=== PATIENT | female | born 1950 | race Caucasian/White ===

== ENCOUNTER 2019-05-06 12:03 | Outpatient (CLI) | payer MEDICARE, SELFPAY ==
[2019-05-06 12:29] LABS: Hematocrit 34.1 % (37.0-47.0); Hemoglobin 11.1 g/dL (12.0-15.0); Mean Corpuscular HGB Conc 32.6 g/dl (32-36); Mean Corpuscular Hemoglobin 29.8 pg (26-34); Mean Corpuscular Volume 91.4 fl (80-100); Mean Platelet Volume 9.7 fl (7.4-10.4); Platelet Count Result 234 k/mm3 (150-375); Red Blood Count 3.73 M/mm3 (4.2-5.4); White Blood Count 7.9 K/mm3 (4.5-10.0)
[2019-05-06 12:42] LABS: Total Protein Urine Random 7 mg/dL
[2019-05-06 12:47] LABS: Add Urine Microscopic? YES; Appearance Urine Clear (Clear); Bacteria Urine Trace /hpf; Bilirubin Urine Negative (Negative); Blood Urine Negative (Negative); Color Urine Yellow (Yellow); Glucose Urine UA 3+ mg/dL (Negative); Ketones Urine Negative (Negative); Leukocyte Esterase Ur Negative LEU/UL (NEGATIVE); Nitrate Urine Negative (Negative); Protein Urine Negative (Negative); RBC Urine 0-2 /hpf (0-2); Squamous Epithelial Cell Urine Few /hpf (Few); Urobilinogen Urine Negative mg/dL (<2.0); WBC Urine 0-3 /hpf (0-3)
[2019-05-06 12:48] LABS: Complement C3 125 mg/dL (88-165)
[2019-05-06 13:10] LABS: Albumin Level 4.1 g/dL (3.5-5.1); Blood Urea Nitrogen 31 mg/dL (7-17); Calcium 9.2 mg/dL (8.4-10.2); Carbon Dioxide 20 mmol/L (22-30); Chloride 104 mmol/L (98-107); Estimated Glomerular Filt Rate 41; Glucose 363 mg/dL (65-105); Phosphorus 3.3 mg/dL (2.5-4.5); Potassium 5.6 mmol/L (3.4-5.0); Sodium 135 mmol/L (137-145)
[2019-05-06 13:19] LABS: Vitamin D 25 Hydroxy 14.7 ng/mL
[2019-05-06 13:22] LABS: Parathyroid Intact 105.2 pg/mL (7.5-53.5)
[2019-05-06 13:27] LABS: Erythrocyte Sedimentation Rate 81 mm/hr (0-20)
[2019-05-09 12:53] LABS: Complement Total CH50 >60 U/mL (31-60)
[2019-05-10 00:29] LABS: Kappa\\Lambda Light Chains 1.44 (0.26-1.65); Lambda Light Chain 31.1 mg/L (5.7-26.3)
== END 2019-05-06 12:04 | disposition home or self-care (01) ==
PROVIDERS: Visit Provider Internal Medicine Nephrology
DX: N18.3 Chronic kidney disease, stage 3 (moderate) (principal)
CPT/HCPCS: 36415; 80069; 81001; 81050; 82306; 83883; 83970; 84156; 85027; 85652; 86038; 86160; 86162; 86334; 86335

== ENCOUNTER 2019-05-22 12:42 | Outpatient (CLI) | payer MEDICARE, SELFPAY ==
--- NOTE | ~2019-05-22 | US_ITS ---
EXAMINATION: US renal BI EXAM DATE: 05/22/2019 13:45 INDICATION: Chronic kidney disease stage III. TECHNIQUE: Multiple grayscale and Doppler images of the kidneys were obtained (by a technologist who performed the scan) and subsequently reviewed. There is no prior study for comparison. FINDINGS: There is bilateral renal cortical thinning. Right kidney: There is normal contour and echogenicity. It measures 10.0 x 5.2 x 4.3 centimeters. T here are no focal renal lesions identified. There is no hydronephrosis. Left kidney: There is normal contour and echogenicity. It measures 10.2 x 5.8 x 5.9 centimeters. Th ere are no focal renal lesions identified. There is no hydronephrosis. Bladder unremarkable. IMPRESSION: 1. Symmetric bilateral renal cortical thinning, atrophy. Reviewed, dictated and finalized at location A. 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
== END 2019-05-22 12:43 | disposition home or self-care (01) ==
LOC: ANHIMG 12:52
PROVIDERS: Visit Provider Internal Medicine Nephrology
DX: N18.3 Chronic kidney disease, stage 3 (moderate) (principal)
CPT/HCPCS: 76775

== ENCOUNTER 2019-07-29 11:58 | Outpatient (CLI) | payer MEDICARE, SELFPAY ==
[2019-07-29 12:41] LABS: Cholesterol 169 mg/dL (0-200); HDL Direct 52 mg/dL; Triglycerides 199 mg/dL (<150)
[2019-07-29 12:53] LABS: LDL Cholesterol Direct 77 mg/dL
== END 2019-07-29 11:59 | disposition home or self-care (01) ==
DX: E11.9 Type 2 diabetes mellitus without complications (principal); I10 Essential (primary) hypertension
CPT/HCPCS: 36415; 80061; 83036

== ENCOUNTER 2019-10-16 11:26 | Outpatient (CLI) | payer MEDICARE, SELFPAY ==
[2019-10-16 12:41] LABS: Hemoglobin A1C 7.9 % (<5.7)
== END 2019-10-16 11:27 | disposition home or self-care (01) ==
DX: E11.9 Type 2 diabetes mellitus without complications (principal)
CPT/HCPCS: 36415; 83036

== ENCOUNTER 2019-12-13 14:30 | Outpatient (CLI) | payer MEDICARE, SELFPAY ==
[2019-12-13 15:13] LABS: Creatinine Urine 154.8 mg/dL; Total Protein Urine Random 7 mg/dL
[2019-12-13 15:20] LABS: Albumin Level 4.2 g/dL (3.5-5.1); Anion Gap 6 mmol/L (8-16); Blood Urea Nitrogen 25 mg/dL (7-17); Calcium 9.1 mg/dL (8.4-10.2); Carbon Dioxide 25 mmol/L (22-30); Chloride 106 mmol/L (98-107); Estimated Glomerular Filt Rate 37; Glucose 113 mg/dL (65-105); Phosphorus 4.1 mg/dL (2.5-4.5); Potassium 4.8 mmol/L (3.4-5.0); Sodium 137 mmol/L (137-145)
[2019-12-13 15:57] LABS: Vitamin D 25 Hydroxy 34.1 ng/mL
== END 2019-12-13 14:31 | disposition home or self-care (01) ==
PROVIDERS: Visit Provider Internal Medicine Nephrology
DX: N18.3 Chronic kidney disease, stage 3 (moderate) (principal)
CPT/HCPCS: 36415; 80069; 82306; 82570; 84156

== ENCOUNTER 2020-06-08 16:01 | Outpatient (CLI) | payer MEDICARE, SELFPAY ==
[2020-06-08 16:43] LABS: Hematocrit 32.5 % (37.0-47.0); Hemoglobin 10.5 g/dL (12.0-15.0); Mean Corpuscular HGB Conc 32.3 g/dl (32-36); Mean Corpuscular Hemoglobin 29.1 pg (26-34); Mean Platelet Volume 9.5 fl (7.4-10.4); Platelet Count Result 235 k/mm3 (150-375); Red Blood Count 3.61 M/mm3 (4.2-5.4); Red Cell Distribution Width 13.5 % (11.5-14.5); White Blood Count 6.6 K/mm3 (4.5-10.0)
[2020-06-08 17:00] LABS: Albumin Level 3.7 g/dL (3.5-5.1); Anion Gap 5 mmol/L (8-16); Blood Urea Nitrogen 30 mg/dL (7-17); Calcium 8.8 mg/dL (8.4-10.2); Carbon Dioxide 27 mmol/L (22-30); Chloride 106 mmol/L (98-107); Estimated Glomerular Filt Rate 37; Glucose 218 mg/dL (65-105); Phosphorus 3.8 mg/dL (2.5-4.5); Potassium 5.2 mmol/L (3.4-5.0); Sodium 138 mmol/L (137-145)
[2020-06-08 17:08] LABS: Parathyroid Intact 75.7 pg/mL (7.5-53.5)
[2020-06-08 17:22] LABS: Creatinine Urine 198.4 mg/dL; Total Protein Urine Random 8 mg/dL; Ur Ttl Prot Creatinine Ratio 0.04 mg/mg (0-0.20)
[2020-06-08 17:43] LABS: Vitamin D 25 Hydroxy 30.5 ng/mL
== END 2020-06-08 16:02 | disposition home or self-care (01) ==
LOC: ANHLAB 16:05
PROVIDERS: Visit Provider Internal Medicine Nephrology
DX: N18.30 Chronic kidney disease, stage 3 unspecified (principal)
CPT/HCPCS: 36415; 80069; 82306; 82570; 83970; 84156; 85027

== ENCOUNTER 2020-08-03 15:11 | Outpatient (CLI) | payer MEDICARE, SELFPAY ==
[2020-08-03 15:47] LABS: Cholesterol 135 mg/dL (0-200); HDL Direct 49 mg/dL; Triglycerides 185 mg/dL (<150)
[2020-08-03 15:57] LABS: LDL Cholesterol Direct 53 mg/dL
== END 2020-08-03 15:12 | disposition home or self-care (01) ==
DX: I10 Essential (primary) hypertension (principal)
CPT/HCPCS: 36415; 80061

== ENCOUNTER 2020-09-30 20:33 | Emergency (ER) | payer MEDICARE, SELFPAY ==
[2020-09-30] VITALS (7 sets, daily range): BP systolic 117–162; BP diastolic 62–78; PULSE 69–81; RESP 15–23; TEMP 36.2; O2SAT 93–98
--- NOTE | ~2020-09-30 | CT_ITS ---
EXAMINATION: CT abdomen pelvis wo con EXAM DATE: 09/30/2020 23:04 INDICATION: Nausea and vomiting. TECHNIQUE: Spiral CT of the abdomen and pelvis was performed without contrast. Axial, coronal and sag ittal images were reviewed. The dose-length product (DLP) for this examination was 1461.43 mGy-cm. The exposure was tailored according to patient size (auto mA exposure control), and iterative reconst ruction (ASIR) was used as additional dose reduction technique. There is no prior study for comparis on. FINDINGS: There is no nephrolithiasis or hydronephrosis. The uterus is unremarkable. The bladder is unremarkable. The liver, spleen, adrenal glands and pancreas are unremarkable. Small calcified c holelithiasis identified. Unremarkable biliary system. There is no retroperitoneal or pelvic lympha denopathy. There is mild scattered arteriosclerotic disease. The appendix is normal. There is mild sigmoid colonic diverticulosis. There is no adjacent inflammat ory change to suggest diverticulitis. The stomach and small bowel are unremarkable. Lipomatous hypert rophy of the ileocecal valve. There is expected amount of colonic stool. No free intraperitoneal ga s. The heart is normal in size. There are no pericardial or pleural effusions. The lung bases are unremarkable. There are no osteoblastic or osteolytic lesions identified. IMPRESSION: 1. No acute intra-abdominal findings. Reviewed, dictated and finalized at location A.
[2020-09-30 21:13] LABS: Basophils Percent Auto 0.5 % (0.2-1.2); Eosinophils Absolute Auto 0.3 K/mm3 (0-0.3); Eosinophils Percent Auto 3.9 % (0-4.4); Hematocrit 34.6 % (37.0-47.0); Hemoglobin 10.9 g/dL (12.0-15.0); Immature Granulocyte Absolute 0.05 K/mm3 (0.00-0.031); Immature Granulocyte Percent A 0.7 % (0-0.5); Lymphocytes Absolute Auto 2.72 K/mm3 (0.9-3.2); Lymphocytes Percent Auto 35.4 % (18.3-44.2); Mean Corpuscular HGB Conc 31.5 g/dl (32-36); Mean Corpuscular Hemoglobin 28.9 pg (26-34); Mean Corpuscular Volume 91.8 fl (80-100); Mean Platelet Volume 9.6 fl (7.4-10.4); Monocytes Absolute Auto 0.6 K/mm3 (0.1-0.6); Monocytes Percent Auto 7.9 % (2.6-8.5); Neutrophils Percent Auto 51.6 % (45.5-73.1); Platelet Count Result 201 k/mm3 (150-375); Red Blood Count 3.77 M/mm3 (4.2-5.4); Red Cell Distribution Width 14.6 % (11.5-14.5); White Blood Count 7.7 K/mm3 (4.5-10.0)
[2020-09-30 21:22] LABS: Ethanol 223 mg/dL (<10)
[2020-09-30 21:23] LABS: Alanine Aminotransferase 22 U/L (4-35); Alkaline Phosphatase 65 U/L (38-126); Anion Gap 12 mmol/L (8-16); Aspartate Amino Transferase 49 U/L (14-36); Bilirubin,Total 0.3 mg/dL (0.2-1.3); Blood Urea Nitrogen 19 mg/dL (7-17); Calcium 8.8 mg/dL (8.4-10.2); Carbon Dioxide 19 mmol/L (22-30); Chloride 109 mmol/L (98-107); Estimated Glomerular Filt Rate 34; Glucose 227 mg/dL (65-105); Lipase 345 U/L (23-300); Potassium 4.5 mmol/L (3.4-5.0); Sodium 140 mmol/L (137-145)
--- NOTE | 2020-09-30 21:29 | ED.GENADULT ---
HPI - General Adult General Chief complaint: Unspecified <Gucci Funes PA-C - Last Filed: 09/30/20 21:32> Stated complaint: etoh <Gucci Funes PA-C - Last Filed: 09/30/20 21:32> Time Seen by Provider: 09/30/20 20:42 <ARCENIO Goodson Last Filed: 09/30/20 21:32> Source: patient, EMS, RN notes reviewed and old records reviewed <ARCENIO Goodson Last Filed: 09/30/20 21:32> Mode of arrival: EMS <ARCENIO Goodson Last Filed: 09/30/20 21:32> Limitations: intoxication <Gucci Funes PA-C - Last Filed: 09/30/20 21:32> History of Present Illness HPI narrative: Patient is a 70-year-old female who presents per EMS after becoming intoxicated at a restaurant EMS were contacted as well as police patient was brought to emergency department by EMS due to intoxication. Patient had emesis all over the ambulance in route. On arrival patient is intoxicated is arousable and will answer questions but nods off. Patient notes history of diabetes and hypertension and renal disease. Patient lives at home by herself <ARCENIO Goodson Last Filed: 09/30/20 21:32> Related Data Home medications: Home Medications Medication Instructions Recorded Confirmed glipizide mg 09/30/20 lisinopril 09/30/20 metformin mg 09/30/20 pioglitazone mg 09/30/20 rosuvastatin mg 09/30/20 sertraline mg 09/30/20 sitagliptin [Januvia] mg 09/30/20 <ARCENIO Goodson Last Filed: 09/30/20 21:32> Allergies/adverse reactions: Allergies Allergy/AdvReac Type Severity Reaction Status Date / Time No Known Allergies Allergy Verified 09/30/20 20:56 <ARCENIO Goodson Last Filed: 09/30/20 21:32> Review of Systems Review of Systems: Narrative: Limited due to intoxication <ARCENIO Goodson Last Filed: 09/30/20 21:32> [facility] Past Medical History Medical History: Medical History (Updated 10/01/20 @ 06:44 by Hudson Jones MD) Chronic kidney disease Diabetes mellitus Hypertension Obesity <Gucci Funes PA-C - Last Filed: 09/30/20 21:32> Social History Social History: Social History (Updated 09/30/20 @ 21:31 by Gucci Funes PA-C) Smoking status: Never smoker Alcohol intake: current <Gucci Funes PA-C - Last Filed: 09/30/20 21:32> Exam Narrative: Exam Narrative: GENERAL: Well-appearing, obese, and in no acute distress. HEAD: Normocephalic, atraumatic. EYES: PERRLA and EOMI. ENT: Nares clear, no rhinorrhea or epistaxis. Mucous membranes moist. NECK: Supple. No adenopathy or masses. CHEST: Clear to auscultation. No respiratory distress. No wheezes rales or rhonchi HEART: Regular rate and rhythm. No murmur heard. Normal peripheral pulses. ABDOMEN: Soft, nontender, nondistended EXTREMITIES: Normal range of motion. No edema. SKIN: Warm, dry, no rash. NEURO: No focal deficits. Alert and oriented to self. Cranial nerves II through XII grossly intact PSYCH: Intoxicated <Gucci Funes PA-C - Last Filed: 09/30/20 21:32> Course Course Emergency Course: Patient reexamined at 6:30 AM, patient alert awake and oriented x4, walked with a steady gait. Patient will be discharged home. <Hudson Jones MD - Last Filed: 10/01/20 06:45> Vital Signs Vital signs: Vital Signs Temperature 36.2 C L 09/30/20 20:47 Pulse Rate 76 09/30/20 20:47 Respiratory Rate 20 09/30/20 20:47 Blood Pressure 142/78 H 09/30/20 20:47 Pulse Oximetry 97 09/30/20 20:47 Temperature 36.2 C L 09/30/20 20:47 Pulse Rate 79 10/01/20 05:00 Respiratory Rate 20 10/01/20 05:00 Blood Pressure 135/78 10/01/20 05:00 Pulse Oximetry 97 10/01/20 05:00 <Gucci Funes PA-C - Last Filed: 09/30/20 21:32> Vital Signs Temperature 36.2 C L 09/30/20 20:47 Pulse Rate 76 09/30/20 20:47 Respiratory Rate 20 09/30/20 20:47 Blood Pressure 142/78 H 09/30/20 20:47 Pulse Oximetry
[2020-09-30] MEDS: THIAMINE HCL INJ 100 MG, FOLIC ACID INJ 1 MG, MULTIVITAMINS-12 INJ VIAL 1 5 ML, MULTIVI... 999 MG IV CONT (21:33)
--- NOTE | 2020-09-30 22:40 | PC.NURSE ---
Transferred per stretcher to room #3
[2020-10-01] VITALS: BP 219/118; PULSE 89; RESP 21; O2SAT 97
[2020-10-01 01:20] LABS: Add Urine Microscopic? YES; Appearance Urine Cloudy (Clear); Bacteria Urine 1+ /hpf; Bilirubin Urine Negative (Negative); Blood Urine Negative (Negative); Color Urine Red (Yellow); Glucose Urine UA 3+ mg/dL (Negative); Ketones Urine Negative (Negative); Leukocyte Esterase Ur Trace LEU/UL (Negative); Nitrate Urine Positive (Negative); Protein Urine Negative (Negative); RBC Urine 0-2 /hpf (0-2); Specific Grav Ur 1.007 (1.001-1.035); Squamous Epithelial Cell Urine Rare /hpf (Few); Urobilinogen Urine Negative mg/dL (<2.0)
[2020-10-01] MEDS: SODIUM CHLORIDE 0.9% IV 1,000 ML 999 ML IV CONT (01:25)
[2020-10-01 03:00] VITALS: BP 137/85; PULSE 72; RESP 21; O2SAT 96
[2020-10-01 04:00] VITALS: BP 141/62; PULSE 82; RESP 21; O2SAT 97
[2020-10-01 05:00] VITALS: BP 135/78; PULSE 79; RESP 20; O2SAT 97
[2020-10-01 06:30] VITALS: BP 116/61; PULSE 72; RESP 20; O2SAT 96
== END 2020-10-01 06:55 | disposition home or self-care (01) ==
LOC: ANHED 20:50
PROVIDERS: Emergency Medicine Emergency Medical Services; Emergency Provider Emergency Medicine
DX: F10.129 Alcohol abuse with intoxication, unspecified (principal); I12.9 Hypertensive chronic kidney disease with stage 1 through stage 4 chronic kidney disease, or unspecified chronic kidney disease; E11.22 Type 2 diabetes mellitus with diabetic chronic kidney disease; N18.9 Chronic kidney disease, unspecified
CPT/HCPCS: 36415; 74176; 80053; 80307; 81001; 83690; 85025; 96361; 96365; 96366; 99284; J3411; J3475; J7030; J7121

== ENCOUNTER 2020-12-17 15:29 | Outpatient (CLI) | payer MEDICARE, SELFPAY ==
[2020-12-17 15:48] LABS: Hematocrit 37.5 % (37.0-47.0); Hemoglobin 11.9 g/dL (12.0-15.0); Mean Corpuscular HGB Conc 31.7 g/dl (32-36); Mean Corpuscular Hemoglobin 29.4 pg (26-34); Mean Corpuscular Volume 92.6 fl (80-100); Mean Platelet Volume 9.4 fl (7.4-10.4); Platelet Count Result 203 k/mm3 (150-375); Red Blood Count 4.05 M/mm3 (4.2-5.4); Red Cell Distribution Width 15.5 % (11.5-14.5); White Blood Count 6.4 K/mm3 (4.5-10.0)
[2020-12-17 15:58] LABS: Albumin Level 4.1 g/dL (3.5-5.1); Anion Gap 8 mmol/L (8-16); Blood Urea Nitrogen 23 mg/dL (7-17); Calcium 9.3 mg/dL (8.4-10.2); Carbon Dioxide 23 mmol/L (22-30); Chloride 110 mmol/L (98-107); Estimated Glomerular Filt Rate 44; Glucose 212 mg/dL (65-110); Phosphorus 3.7 mg/dL (2.5-4.5); Potassium 5.2 mmol/L (3.4-5.0); Sodium 141 mmol/L (137-145)
[2020-12-17 16:11] LABS: Creatinine Urine 186.5 mg/dL
[2020-12-17 16:25] LABS: Total Protein Urine Random < 5 mg/dL
[2020-12-17 16:26] LABS: Ur Ttl Prot Creatinine Ratio < 0.03 mg/mg (0-0.20)
== END 2020-12-17 15:30 | disposition home or self-care (01) ==
LOC: ANHLAB 15:32
PROVIDERS: Visit Provider Internal Medicine Nephrology
DX: N18.32 Chronic kidney disease, stage 3b (principal)
CPT/HCPCS: 36415; 80069; 82570; 84156; 85027

== ENCOUNTER 2021-05-31 16:22 | Outpatient (CLI) | payer MEDICARE, SELFPAY ==
[2021-05-31 16:59] LABS: Hematocrit 34.3 % (37.0-47.0); Hemoglobin 10.8 g/dL (12.0-15.0); Mean Corpuscular HGB Conc 31.5 g/dl (32-36); Mean Corpuscular Hemoglobin 29.3 pg (26-34); Mean Corpuscular Volume 93.2 fl (80-100); Mean Platelet Volume 9.8 fl (7.4-10.4); Platelet Count Result 211 k/mm3 (150-375); Red Blood Count 3.68 M/mm3 (4.2-5.4); Red Cell Distribution Width 14.9 % (11.5-14.5); White Blood Count 7.9 K/mm3 (4.5-10.0)
[2021-05-31 17:12] LABS: Anion Gap 8 mmol/L (8-16); Blood Urea Nitrogen 22 mg/dL (7-17); Calcium 8.6 mg/dL (8.4-10.2); Carbon Dioxide 23 mmol/L (22-30); Chloride 109 mmol/L (98-107); Estimated Glomerular Filt Rate 37; Glucose 195 mg/dL (65-110); Phosphorus 3.2 mg/dL (2.5-4.5); Sodium 140 mmol/L (137-145)
[2021-05-31 17:23] LABS: Parathyroid Intact 118.6 pg/mL (7.5-53.5)
[2021-05-31 19:56] LABS: Creatinine Urine 203.2 mg/dL; Total Protein Urine Random 18 mg/dL; Ur Ttl Prot Creatinine Ratio 0.09 mg/mg (0-0.20)
== END 2021-05-31 16:23 | disposition home or self-care (01) ==
PROVIDERS: PCP Nurse Practitioner Family; Visit Provider Internal Medicine Nephrology
DX: N18.32 Chronic kidney disease, stage 3b (principal)
CPT/HCPCS: 36415; 80069; 82570; 83970; 84156; 85027

== ENCOUNTER 2021-07-17 13:22 | Outpatient (CLI) | payer MEDICARE, SELFPAY ==
[2021-07-17 13:48] LABS: Cholesterol 151 mg/dL (0-200); HDL Direct 63 mg/dL; Triglycerides 93 mg/dL (<150)
[2021-07-17 13:59] LABS: LDL Cholesterol Direct 45 mg/dL
[2021-07-17 14:03] LABS: Hemoglobin A1C 5.9 % (<5.7)
== END 2021-07-17 13:23 | disposition home or self-care (01) ==
LOC: ANHLAB 13:25
PROVIDERS: PCP Nurse Practitioner Family; Visit Provider Nurse Practitioner Family
DX: E11.9 Type 2 diabetes mellitus without complications (principal); E78.5 Hyperlipidemia, unspecified
CPT/HCPCS: 36415; 80061; 83036

== ENCOUNTER 2021-12-13 15:33 | Outpatient (CLI) | payer MEDICARE, SELFPAY ==
[2021-12-13 16:40] LABS: Hematocrit 37.8 % (37.0-47.0); Hemoglobin 11.9 g/dL (12.0-15.0); Mean Corpuscular HGB Conc 31.5 g/dl (32-36); Mean Corpuscular Hemoglobin 29.4 pg (26-34); Mean Corpuscular Volume 93.3 fl (80-100); Mean Platelet Volume 10.1 fl (7.4-10.4); Platelet Count Result 238 k/mm3 (150-375); Red Blood Count 4.05 M/mm3 (4.2-5.4); White Blood Count 5.9 K/mm3 (4.5-10.0)
[2021-12-13 16:40] LABS: Creatinine Urine 191.7 mg/dL; Total Protein Urine Random 14 mg/dL; Ur Ttl Prot Creatinine Ratio 0.07 mg/mg (0-0.20)
[2021-12-13 16:49] LABS: Albumin Level 4.1 g/dL (3.5-5.1); Anion Gap 10 mmol/L (8-16); Blood Urea Nitrogen 26 mg/dL (7-17); Calcium 8.7 mg/dL (8.4-10.2); Carbon Dioxide 26 mmol/L (22-30); Chloride 105 mmol/L (98-107); Estimated Glomerular Filt Rate 40; Glucose 244 mg/dL (65-110); Phosphorus 3.3 mg/dL (2.5-4.5); Potassium 5.3 mmol/L (3.4-5.0); Sodium 141 mmol/L (137-145)
[2021-12-13 17:00] LABS: Parathyroid Intact 134.2 pg/mL (7.5-53.5)
== END 2021-12-13 15:34 | disposition home or self-care (01) ==
PROVIDERS: PCP Nurse Practitioner Family; Referring Provider Internal Medicine Nephrology; Visit Provider Internal Medicine Nephrology
DX: N18.32 Chronic kidney disease, stage 3b (principal)
CPT/HCPCS: 36415; 80069; 82570; 83970; 84156; 85027

== ENCOUNTER 2021-12-20 11:47 | Emergency (ER) | payer MEDICARE, SELFPAY ==
--- NOTE | ~2021-12-20 | XR_ITS ---
EXAMINATION: XR chest 2V DATE: 12/20/2021 12:29 INDICATION: Palpitations. TECHNIQUE: Frontal and lateral views of the chest were obtained. COMPARISON: Chest 2 views 12/17/2007, CT abdomen and pelvis 09/30/2020 FINDINGS: There are chronic interstitial opacities in the lower lung zones. No pleural effusion or pn eumothorax. The heart size is normal. IMPRESSION: 1. Mild chronic interstitial lung disease. Reviewed, dictated and finalized at location A.
[2021-12-20 11:53] VITALS: BP 138/75; PULSE 81; RESP 18; TEMP 36.9; O2SAT 98
[2021-12-20 12:00] VITALS: PULSE 76
--- NOTE | 2021-12-20 12:02 | ECG_ITS ---
Measurements Intervals [place] Rate: 75 P: 79 MA: 157 QRS: 7 QRSD: 106 T: 44 QT: 377 QTc: 423 Interpretive Statements SINUS RHYTHM ATRIAL PREMATURE COMPLEX DELAYED PRECORDIAL R/S TRANSITION BASELINE ARTIFACT- III, AVF BORDERLINE ECG NO PREVIOUS ECG AVAILABLE FOR COMPARISON Electronically Signed On 12-20-2021 13:57:38 CDT by Rigo Johnson D.O.
[2021-12-20 12:17] VITALS: BP 138/75; PULSE 74; RESP 20; O2SAT 98
[2021-12-20 12:17] LABS: Basophils Absolute Auto 0.1 K/mm3 (0.0-0.1); Basophils Percent Auto 1.1 % (0.2-1.2); Eosinophils Absolute Auto 0.6 K/mm3 (0-0.3); Eosinophils Percent Auto 7.7 % (0-4.4); Hematocrit 39.1 % (37.0-47.0); Hemoglobin 12.6 g/dL (12.0-15.0); Immature Granulocyte Absolute 0.03 K/mm3 (0.00-0.031); Immature Granulocyte Percent A 0.4 % (0-0.5); Lymphocytes Absolute Auto 2.66 K/mm3 (0.9-3.2); Lymphocytes Percent Auto 32.4 % (18.3-44.2); Mean Corpuscular HGB Conc 32.2 g/dl (32-36); Mean Corpuscular Hemoglobin 29.5 pg (26-34); Mean Corpuscular Volume 91.6 fl (80-100); Mean Platelet Volume 10.4 fl (7.4-10.4); Monocytes Absolute Auto 0.8 K/mm3 (0.1-0.6); Monocytes Percent Auto 9.7 % (2.6-8.5); Neutrophils Percent Auto 48.7 % (45.5-73.1); Platelet Count Result 241 k/mm3 (150-375); Red Blood Count 4.27 M/mm3 (4.2-5.4); Red Cell Distribution Width 15.6 % (11.5-14.5); White Blood Count 8.2 K/mm3 (4.5-10.0)
--- NOTE | 2021-12-20 12:26 | ED.ARRPALP ---
HPI - Arrhythmia/Palpitations General Chief Complaint: Arrhythmia/Palpitations Stated Complaint: unknown Time Seen by Provider: 12/20/21 12:00 Source: RN notes reviewed History of Present Illness HPI narrative: Patient presents emergency department from Dr. Brown's office for arrhythmia. Patient states she gone to see Dr. Brown for a normal visit today she states at that time he had felt her pulse and had said it been irregular and recommend she come to the ER for further evaluation. Patient denies having any feelings of irregular pulse or rapid heart rate she denies any chest pain shortness of breath abdominal pain nausea vomiting. States she has no previous cardiac history Related Data Home Medications Medication Instructions Recorded Confirmed glipizide 10 mg tablet mg 09/30/20 lisinopril 10 mg tablet 09/30/20 metformin 850 mg tablet mg 09/30/20 pioglitazone 15 mg tablet mg 09/30/20 rosuvastatin 20 mg tablet mg 09/30/20 sertraline 100 mg tablet mg 09/30/20 sitagliptin 100 mg tablet (Januvia) mg 09/30/20 Allergies Allergy/AdvReac Type Severity Reaction Status Date / Time No Known Allergies Allergy Verified 12/20/21 12:00 Review of Systems Review of Systems: Gen.: Denies fevers or chills ENT: Denies congestion Respiratory: Denies shortness of breath or cough CV: Denies chest pain or palpitations GI: Denies abdominal pain nausea, emesis or diarrhea Musculoskeletal: Denies back pain or muscle pain Neuro: Denies numbness, tingling, weakness or focal weakness Skin: Denies rash Except as documented, all other systems reviewed and negative [facility] Past Medical History Medical History Chronic kidney disease Diabetes mellitus Hypertension Obesity Social History Social History Smoking status: Never smoker Alcohol intake: current Exam Narrative: APPEARANCE: No acute distress, nontoxic, resting in bed EYES: EOMI HEENT: Normocephalic, atraumatic, OMM RESPIRATORY: No respiratory distress Clear to auscultation bilaterally with no rhonchi wheezing or rales. CARDIOVASCULAR: Regular rate and rhythm without murmurs rubs or gallops. ABDOMINAL: Soft, nontender, nondistended, no rebound or guarding MUSCULOSKELETAl: Moves all extremities. No clubbing, cyanosis 2+ edema the bilateral lower extremities NEURO: Awake and alert. Following commands, speech normal, no focal deficits SKIN:: Warm, dry. No rashes lesions or abrasions PSYCHIATRIC: Normal affect/mood, Course Course Emergency Course: Called discussed with Dr. 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 Discussed need for follow-up with primary care, proper use of medication, and reasons to return to the emergency department. Patient understands and agrees to current treatment plan Vital Signs Vital signs: Vital Signs Temperature 98.5 F 12/20/21 11:53 Pulse Rate 81 12/20/21 11:53 Respiratory Rate 18 12/20/21 11:53 Blood Pressure 138/75 12/20/21 11:53 Pulse Oximetry 98 12/20/21 11:53 Oxygen Delivery Room Air 12/20/21 11:53 Temperature 98.5 F 12/20/21 11:53 Pulse Rate 74 12/20/21 12:17 Respiratory Rate 20 12/20/21 12:17 Blood Pressure 138/75 12/20/21 12:17 Pulse Oximetry 98 12/20/21 12:17 Oxygen Delivery Room Air 12/20/21 11:53 MDM - Arrhythmia/Palpitations Lab Data Result diagrams: 12/20/21 12:08 12/20/21 12:08 Labs: Lab Results 12/20/21 12/20/21 12/20/21 Range/Units 12:07 12:08 12:08 WBC 8.2 (4.5-10.0) K/mm3 RBC 4.27 (4.2-5.4) M/mm3 Hgb 12.6 (12.0-15.0) g/dL Hct 39.1 (37.0-47.0)
--- NOTE | 2021-12-20 12:31 | PC.NURSE ---
pt. refuses to remove shoes.
[2021-12-20 12:35] LABS: INR 1.1; Prothrombin Time 13.3 Seconds (11.1-14.7)
[2021-12-20 12:36] LABS: Partial Thromboplastin Time 28.5 SECONDS (22.3-36.8)
[2021-12-20 12:37] LABS: Alanine Aminotransferase 34 U/L (6-35); Alkaline Phosphatase 91 U/L (38-126); Anion Gap 8 mmol/L (8-16); Aspartate Amino Transferase 84 U/L (14-36); Bilirubin,Total 0.8 mg/dL (0.2-1.3); Blood Urea Nitrogen 22 mg/dL (7-17); Calcium 9.1 mg/dL (8.4-10.2); Carbon Dioxide 20 mmol/L (22-30); Chloride 108 mmol/L (98-107); Estimated CRCL calculation 47 ml/min; Estimated Glomerular Filt Rate 40; Glucose 192 mg/dL (65-110); Lipase 180 U/L (23-300); Magnesium 1.7 mg/dL (1.6-2.3); Potassium 4.8 mmol/L (3.4-5.0); Sodium 136 mmol/L (137-145)
[2021-12-20 12:45] LABS: Troponin I < 0.012 ng/mL (0.000-0.034)
[2021-12-20 12:54] LABS: Magnesium 1.7 mg/dL (1.6-2.3)
[2021-12-20 13:17] VITALS: BP 122/58; PULSE 72; RESP 18; O2SAT 98
== END 2021-12-20 13:20 | disposition home or self-care (01) ==
PROVIDERS: Emergency Medicine; Emergency Provider Emergency Medicine; PCP Nurse Practitioner Family
DX: I49.1 Atrial premature depolarization (principal); E11.22 Type 2 diabetes mellitus with diabetic chronic kidney disease; I12.9 Hypertensive chronic kidney disease with stage 1 through stage 4 chronic kidney disease, or unspecified chronic kidney disease; N18.9 Chronic kidney disease, unspecified; E66.9 Obesity, unspecified; Z68.42 Body mass index [BMI] 45.0-49.9, adult; Z79.84 Long term (current) use of oral hypoglycemic drugs; J84.9 Interstitial pulmonary disease, unspecified
CPT/HCPCS: 36415; 71046; 80053; 83690; 83735; 84484; 85025; 85610; 85730; 93005; 99284

== ENCOUNTER 2022-05-11 15:09 | Outpatient (CLI) | payer MEDICARE, SELFPAY ==
[2022-05-11 16:22] LABS: Hematocrit 39.1 % (37.0-47.0); Hemoglobin 12.4 g/dL (12.0-15.0); Mean Corpuscular HGB Conc 31.7 g/dl (32-36); Mean Corpuscular Hemoglobin 30.1 pg (26-34); Mean Corpuscular Volume 94.9 fl (80-100); Mean Platelet Volume 10.8 fl (7.4-10.4); Platelet Count Result 193 k/mm3 (150-375); Red Blood Count 4.12 M/mm3 (4.2-5.4); Red Cell Distribution Width 13.7 % (11.5-14.5)
[2022-05-11 16:38] LABS: Albumin Level 3.9 g/dL (3.5-5.1); Anion Gap 6 mmol/L (8-16); Blood Urea Nitrogen 19 mg/dL (7-17); Calcium 8.7 mg/dL (8.4-10.2); Carbon Dioxide 23 mmol/L (22-30); Chloride 109 mmol/L (98-107); Estimated Glomerular Filt Rate 44; Glucose 118 mg/dL (65-110); Phosphorus 3.8 mg/dL (2.5-4.5); Potassium 5.5 mmol/L (3.4-5.0); Sodium 138 mmol/L (137-145)
[2022-05-11 17:12] LABS: Creatinine Urine 151.7 mg/dL; Total Protein Urine Random 25 mg/dL; Ur Ttl Prot Creatinine Ratio 0.16 mg/mg (0-0.20)
[2022-05-11 17:26] LABS: Parathyroid Intact 152.6 pg/mL (7.5-53.5)
[2022-05-11 22:54] LABS: Vitamin D 25 Hydroxy < 12.8 ng/mL
== END 2022-05-11 15:10 | disposition home or self-care (01) ==
PROVIDERS: PCP Nurse Practitioner Family; Visit Provider Internal Medicine Nephrology
DX: N18.32 Chronic kidney disease, stage 3b (principal); E21.1 Secondary hyperparathyroidism, not elsewhere classified
CPT/HCPCS: 36415; 80069; 82306; 82570; 83970; 84156; 85027

== ENCOUNTER 2022-06-15 16:30 | Outpatient (CLI) | payer MEDICARE, SELFPAY ==
[2022-06-15 17:15] LABS: Albumin Level 4.1 g/dL (3.5-5.1); Anion Gap 4 mmol/L (8-16); Blood Urea Nitrogen 26 mg/dL (7-17); Carbon Dioxide 26 mmol/L (22-30); Chloride 106 mmol/L (98-107); Estimated Glomerular Filt Rate 40; Glucose 181 mg/dL (65-110); Phosphorus 3.1 mg/dL (2.5-4.5); Potassium 4.9 mmol/L (3.4-5.0); Sodium 136 mmol/L (137-145)
== END 2022-06-15 16:31 | disposition home or self-care (01) ==
PROVIDERS: PCP Nurse Practitioner Family; Visit Provider Internal Medicine Nephrology
DX: N18.32 Chronic kidney disease, stage 3b (principal); E21.1 Secondary hyperparathyroidism, not elsewhere classified
CPT/HCPCS: 36415; 80069

== ENCOUNTER 2022-09-07 14:30 | Outpatient (CLI) | payer MEDICARE, SELFPAY ==
--- NOTE | ~2022-09-07 | XR_ITS ---
XR ankle RT min 3V DATE: 09/07/2022 14:50 INDICATION: Bimalleolar ankle pain TECHNIQUE: 4 views COMPARISON: None FINDINGS: There is mild plantar and posterior calcaneal enthesopathy. No fracture or dislocation of the ankle or disruption of the ankle mortise is detected. No periosteal reaction or bone destruction. IMPRESSION: Mild plantar and posterior calcaneal enthesopathy Reviewed, dictated and finalized at location []
[2022-09-07 15:22] LABS: Hematocrit 40.4 % (37.0-47.0); Hemoglobin 13.1 g/dL (12.0-15.0); Mean Corpuscular HGB Conc 32.4 g/dl (32-36); Mean Corpuscular Hemoglobin 30.3 pg (26-34); Mean Corpuscular Volume 93.5 fl (80-100); Mean Platelet Volume 10.8 fl (7.4-10.4); Platelet Count Result 239 k/mm3 (150-375); Red Blood Count 4.32 M/mm3 (4.2-5.4); Red Cell Distribution Width 13.7 % (11.5-14.5)
[2022-09-07 15:35] LABS: Albumin Level 4.1 g/dL (3.5-5.1); Anion Gap 7 mmol/L (8-16); Blood Urea Nitrogen 25 mg/dL (7-17); Calcium 9.2 mg/dL (8.4-10.2); Carbon Dioxide 23 mmol/L (22-30); Chloride 109 mmol/L (98-107); Estimated Glomerular Filt Rate 37; Glucose 158 mg/dL (65-110); Phosphorus 3.5 mg/dL (2.5-4.5); Potassium 5.3 mmol/L (3.4-5.0); Sodium 139 mmol/L (137-145)
[2022-09-07 15:46] LABS: Parathyroid Intact 131.4 pg/mL (7.5-53.5)
[2022-09-07 16:01] LABS: Vitamin D 25 Hydroxy 12.9 ng/mL
[2022-09-07 17:19] LABS: Total Protein Urine Random < 5 mg/dL; Ur Ttl Prot Creatinine Ratio < 0.02 mg/mg (0-0.20)
== END 2022-09-07 14:31 | disposition home or self-care (01) ==
PROVIDERS: PCP Internal Medicine Nephrology; Visit Provider Nurse Practitioner Family
DX: M77.31 Calcaneal spur, right foot (principal)
CPT/HCPCS: 36415; 73610; 80069; 82306; 82570; 83970; 84156; 85027

== ENCOUNTER 2023-03-06 14:29 | Outpatient (CLI) | payer MEDICARE, SELFPAY ==
[2023-03-06 15:10] LABS: Hematocrit 39.4 % (37.0-47.0); Hemoglobin 12.7 g/dL (12.0-15.0); Mean Corpuscular HGB Conc 32.2 g/dl (32-36); Mean Corpuscular Hemoglobin 30.5 pg (26-34); Mean Corpuscular Volume 94.7 fl (80-100); Mean Platelet Volume 11.2 fl (7.4-10.4); Platelet Count Result 269 k/mm3 (150-375); Red Blood Count 4.16 M/mm3 (4.2-5.4); White Blood Count 9.3 K/mm3 (4.5-10.0)
[2023-03-06 15:14] LABS: Albumin Level 4.1 g/dL (3.5-5.1); Anion Gap 8 mmol/L (8-16); Blood Urea Nitrogen 26 mg/dL (7-17); Calcium 9.4 mg/dL (8.4-10.2); Carbon Dioxide 24 mmol/L (22-30); Chloride 107 mmol/L (98-107); Estimated Glomerular Filt Rate 37; Glucose 181 mg/dL (65-110); Phosphorus 3.9 mg/dL (2.5-4.5); Potassium 4.8 mmol/L (3.4-5.0); Sodium 139 mmol/L (137-145)
[2023-03-06 15:18] LABS: Creatinine Urine 169.5 mg/dL; Total Protein Urine Random 11 mg/dL; Ur Ttl Prot Creatinine Ratio 0.06 mg/mg (0-0.20)
[2023-03-06 15:26] LABS: Parathyroid Intact 112.1 pg/mL (7.5-53.5)
[2023-03-06 16:50] LABS: Vitamin D 25 Hydroxy < 12.8 ng/mL
== END 2023-03-06 14:30 | disposition home or self-care (01) ==
PROVIDERS: PCP Nurse Practitioner Family; Visit Provider Internal Medicine Nephrology
DX: E21.1 Secondary hyperparathyroidism, not elsewhere classified (principal); N18.32 Chronic kidney disease, stage 3b
CPT/HCPCS: 36415; 80069; 82306; 82570; 83970; 84156; 85027

== ENCOUNTER 2023-07-27 09:14 | Emergency (ER) | payer MEDICARE, SELFPAY ==
[2023-07-27] VITALS (13 sets, daily range): BP systolic 106–125; BP diastolic 71–102; PULSE 115–144; RESP 15–33; TEMP 36.8; O2SAT 98–100
--- NOTE | ~2023-07-27 | CT_ITS ---
EXAMINATION: CTA chest PE protocol DATE: 07/27/2023 12:04 CDT INDICATION: Elevated d-dimer. Shortness of breath. TECHNIQUE: Computed tomographic angiography (CTA) of the chest was performed with 100 mL Omnipaque-35 0 intravenous contrast. The dose-length product was 760.69 mGy-cm. Maximum intensity projection 3D-re constructions of the aorta and other arteries were constructed by the technologist on a separate work station. COMPARISON: Chest x-ray dated 07/27/2023. FINDINGS: Patchy groundglass opacities with interlobular septal thickening and small effusions. Findi ngs compatible with edema. Pneumonia less favored. Cardiomegaly. Study technically adequate without e vidence for pulmonary embolism. Mild mediastinal lymphadenopathy, likely reactive. Calcified granulom a right mid thorax. There are pleural calcifications in the left lower thorax. Gallstones. Upper abdo men is unremarkable. IMPRESSION: 1. No evidence for pulmonary embolism. 2: Groundglass opacities with interlobular septal thickening and small effusions, compatible with rd ma. Pneumonia less favored. Reviewed, dictated and finalized at location B. IMPRESSION: 1. No evidence for pulmonary embolism. 2: Groundglass opacities with interlobular septal thickening and small effusion s, compatible with edema. Pneumonia less favored.
--- NOTE | ~2023-07-27 | XR_ITS ---
XR chest 2V 07/27/2023 09:36 Indication: Shortness of breath and weakness Procedure: 2 view chest Comparison: Comparison to multiple prior studies sequentially, with oldest reviewed study dated 12/20. Findings: Developing bilateral perihilar and bibasilar infiltrates with peribronchial thickening. No significant effusion or pneumothorax. Impression: 1: Developing bilateral perihilar and bibasilar infiltrates which may represent edema or pneumonia. Reviewed, dictated and finalized at location B. Impression: 1: Developing bilateral perihilar and bibasilar infiltrates which may represent edema or pneumonia.
--- NOTE | 2023-07-27 09:16 | ECG_ITS ---
SEE SCANNED COPY FOR CONFIRMED REPORT MTDD
[2023-07-27 10:03] LABS: Basophils Absolute Auto 0.1 K/mm3 (0.0-0.1); Basophils Percent Auto 0.9 % (0.2-1.2); Eosinophils Absolute Auto 0.2 K/mm3 (0-0.3); Eosinophils Percent Auto 2.7 % (0-4.4); Hematocrit 33.3 % (37.0-47.0); Hemoglobin 10.1 g/dL (12.0-15.0); Immature Granulocyte Absolute 0.03 K/mm3 (0.00-0.031); Immature Granulocyte Percent A 0.4 % (0-0.5); Lymphocytes Absolute Auto 1.64 K/mm3 (0.9-3.2); Lymphocytes Percent Auto 24.4 % (18.3-44.2); Mean Corpuscular HGB Conc 30.3 g/dl (32-36); Mean Corpuscular Hemoglobin 27.9 pg (26-34); Mean Platelet Volume 11.7 fl (7.4-10.4); Monocytes Absolute Auto 0.5 K/mm3 (0.1-0.6); Neutrophils Absolute Auto 4.3 K/mm3 (1.3-6.7); Neutrophils Percent Auto 63.6 % (45.5-73.1); Platelet Count Result 213 k/mm3 (150-375); Red Blood Count 3.62 M/mm3 (4.2-5.4); Red Cell Distribution Width 14.2 % (11.5-14.5); White Blood Count 6.7 K/mm3 (4.5-10.0)
[2023-07-27 10:20] LABS: Alanine Aminotransferase 18 U/L (6-35); Albumin Level 3.8 g/dL (3.5-5.1); Alkaline Phosphatase 79 U/L (38-126); Anion Gap 7 mmol/L (4-12); Aspartate Amino Transferase 27 U/L (14-36); Bilirubin,Total 0.9 mg/dL (0.2-1.3); Blood Urea Nitrogen 22 mg/dL (7-17); Calcium 9.1 mg/dL (8.4-10.2); Carbon Dioxide 19 mmol/L (22-30); Chloride 111 mmol/L (98-107); Estimated Glomerular Filt Rate 40; Glucose 151 mg/dL (65-110); Sodium 137 mmol/L (137-145)
--- NOTE | 2023-07-27 10:32 | ED.SOB ---
HPI - SOB/Dyspnea General Chief Complaint: Shortness of Breath/Dyspnea Stated Complaint: Afib- SOB Time Seen by Provider: 07/27/23 10:28 Source: patient Mode of arrival: ambulatory Limitations: no limitations History of Present Illness HPI Narrative: Patient presents report shortness breath. She states it is nearly constant though worse with exertion. Patient was diagnosed with atrial fibrillation in March 2023. She shortly thereafter prescribed this was changed Xarelto q.h.s. which she does take without missing any doses. Patient's primary care physician Rosanne Emerson ([facility]) ran some tests and she was informed that she should come to the emergency department because she had an elevated dimer. She states she sees Dr. Mckenzie aircraft shipping checker for chronic kidney disease. Patient is prescribed furosemide 20 mg she does state she does not always take this medication given it lasts for 6 hours and causes her to urinate. She is also prescribed metoprolol 20 mg b.i.d. she states that she is very good about taking her evening dose but very frequently forgets or does not take morning dose. She does have appointment to see Dr. Dunn , snuff box finisher, to establish with them tomorrow as a new patient. Patient denies chest pain. She denies any underlying respiratory conditions. Related Data Home Medications Medication Instructions Recorded Confirmed glipizide 10 mg tablet mg 09/30/20 03/22/23 lisinopril 10 mg tablet 09/30/20 03/22/23 metformin 850 mg tablet mg 09/30/20 03/22/23 rosuvastatin 20 mg tablet mg 09/30/20 03/22/23 sertraline 100 mg tablet mg 09/30/20 03/22/23 sitagliptin phosphate 100 mg mg 09/30/20 03/22/23 tablet (Januvia) Allergies Allergy/AdvReac Type Severity Reaction Status Date / Time No Known Allergies Allergy Verified 07/27/23 09:16 [facility] Past Medical History Medical History (Updated 07/28/23 @ 05:33 by Vielka Jacob MD) Atrial fibrillation Dx Mar 2023; on anticoagulation Chronic kidney disease Diabetes mellitus Hypertension Obesity Social History Social History Smoking status: Never smoker Alcohol intake: current Substance use: unknown Lack of Transportation: No Lack of Food: Never True Current Housing: I Have Housing Concerned About Future Housing: No Difficulty Paying Gas/Electric Bills: No Difficulty Paying for Meds: No Currently Unemployed: No Education: Bachelor's Degree Gender identity (if verbalized by the patient): Female Exam Narrative: GENERAL: Well-appearing, well-nourished, and in no acute distress. Appears younger than stated age HEAD: Normocephalic, atraumatic. EYES: Non injected, non icteric ENT: Nares clear, no rhinorrhea or epistaxis. NECK: Supple. CHEST: Speaking in full sentences. No respiratory distress. HEART: Irregularly irregular rate and rhythm. . ABDOMEN: Soft, nondistended. EXTREMITIES: Normal range of motion. Bilateral LE edema 1+. SKIN: Warm, dry, no rash. NEURO: No focal deficits. Alert and oriented x3. PSYCH: Normal mood and affect. Course Vital Signs Vital signs: Vital Signs Pulse Rate 115 H 07/27/23 09:31 Respiratory Rate 15 07/27/23 09:31 Blood Pressure 125/102 H 07/27/23 09:31 Pulse Oximetry 99 07/27/23 09:31 Temperature 98.3 F 07/27/23 10:30 Pulse Rate 118 H 07/27/23 15:55 Respiratory Rate 20 07/27/23 15:55 Blood Pressure 106/71 07/27/23 15:55 Pulse Oximetry 98 07/27/23 15:55 Oxygen Delivery Room Air 07/27/23 10:57 MDM - SOB/Dyspnea MDM Narrative Medical decision making narrative: Patient presented with shortness of breath and dyspnea on exertion. Physical exam revealed an irregular and rapid heartbeat at a rate of 134 beats per minute; it was reported that patient was hemodynamically stable at the time with SBP 120mmHg. Patient has a fairly recent diagnosis of atrial fibrillation within the past 6 months.
[2023-07-27 12:58] LABS: NT Pro B Type Natriuretic Pept 11100 pg/mL (19.9-100); Troponin I < 0.012 ng/mL (0.000-0.034)
[2023-07-27] MEDS: METOPROLOL TARTRATE INJ 5 MG/5 ML VIAL 2.5 MG IV PUSH (13:47)
[2023-07-27] MEDS: METOPROLOL TARTRATE INJ 5 MG/5 ML VIAL IV PUSH (15:10)
[2023-07-27] MEDS: FUROSEMIDE INJ 40 MG/4 ML VIAL IV PUSH (15:14)
--- NOTE | 2023-07-27 15:20 | PC.NURSE ---
1520-PATIENT REMAINS SEATED IN RECLINER PER HER REQUEST. ORAL TEMPERATURE: 98.2; PULSE-119; RESPIRATORY RATE-20; PULSE OXIMETRY-100%; BLOOD PRESSURE RIGHT ARM-99/62. PROVIDER AWARE OF CURRENT VITAL SIGNS.
== END 2023-07-27 15:55 | disposition home or self-care (01) ==
PROVIDERS: Emergency Provider Student in an Organized Health Care Education/Training Program
DX: I48.91 Unspecified atrial fibrillation (principal); I13.0 Hypertensive heart and chronic kidney disease with heart failure and stage 1 through stage 4 chronic kidney disease, or unspecified chronic kidney disease; E11.22 Type 2 diabetes mellitus with diabetic chronic kidney disease; N18.32 Chronic kidney disease, stage 3b; I50.9 Heart failure, unspecified; E66.9 Obesity, unspecified; Z79.01 Long term (current) use of anticoagulants; Z79.84 Long term (current) use of oral hypoglycemic drugs; R94.31 Abnormal electrocardiogram [ECG] [EKG]; R91.8 Other nonspecific abnormal finding of lung field
CPT/HCPCS: 36415; 71046; 71275; 80053; 83880; 84484; 85025; 93005; 96374; 96375; 96376; 99284; J1940; Q9967

== ENCOUNTER 2023-08-16 01:07 | Day surgery (SDC) | payer MEDICARE, SELFPAY ==
[2023-08-15 16:32] VITALS: BMI 46.3
[2023-08-16] VITALS (25 sets, daily range): BP systolic 60–107; BP diastolic 19–84; PULSE 76–143; RESP 14–23; TEMP 36.6; O2SAT 96–100; BMI 46.3
--- NOTE | 2023-08-16 07:00 | ECG_ITS ---
SEE SCANNED COPY FOR CONFIRMED REPORT MTDD
[2023-08-16 07:57] LABS: Anion Gap 15 mmol/L (4-12); Blood Urea Nitrogen 36 mg/dL (7-17); Calcium 8.6 mg/dL (8.4-10.2); Carbon Dioxide 17 mmol/L (22-30); Chloride 103 mmol/L (98-107); Estimated CRCL calculation 29 ml/min; Estimated Glomerular Filt Rate 23; Glucose 160 mg/dL (65-110); Magnesium 1.9 mg/dL (1.6-2.3); Potassium 4.5 mmol/L (3.4-5.0); Sodium 135 mmol/L (137-145)
--- NOTE | 2023-08-16 08:30 | ECG_ITS ---
SEE SCANNED COPY FOR CONFIRMED REPORT MTDD
--- NOTE | 2023-08-16 08:41 | WPDANESEPPF ---
Anes - Initial Pre Proc Eval Procedure: Operation Date: 08/16/23 08:00 Proposed Procedures p Electrical Cardioversion - Mitch Dunn MD Date/Time: 08/16/23 08:41 Surgeon: Mitch Dunn MD Pre Op Diagnosis: AFIB Patient Data Age: 73 Gender: F Height: 1.65 m Weight: 126.4 kg Last Vital Signs Temp 97.9 F 08/16/23 07:31 Pulse 143 H 08/16/23 07:31 Resp 18 08/16/23 07:31 BP 107/84 08/16/23 07:31 Pulse Ox 96 08/16/23 07:31 O2 Del Method Room Air 08/16/23 07:31 Allergies Allergy/AdvReac Type Severity Reaction Status Date / Time No Known Allergies Allergy Verified 08/16/23 07:27 Home Medications Medication Instructions Recorded Confirmed Type glipizide 10 mg tablet 10 mg PO HS 09/30/20 08/15/23 History metformin 850 mg tablet 1,700 mg PO HS 09/30/20 08/15/23 History sertraline 100 mg tablet 50 mg PO HS 09/30/20 08/15/23 History atorvastatin 40 mg tablet 40 mg PO HS 08/15/23 08/15/23 History furosemide 20 mg tablet 20 mg PO DAILY 08/15/23 08/15/23 History metoprolol tartrate 25 mg tablet 25 mg PO Q12H 08/15/23 08/15/23 History rivaroxaban 20 mg tablet (Xarelto) 20 mg PO HS 08/15/23 08/15/23 History Laboratory Tests 08/16/23 07:25 Sodium 135 L mmol/L (137-145) Potassium 4.5 mmol/L (3.4-5.0) Chloride 103 mmol/L (98-107) Carbon Dioxide 17 L mmol/L (22-30) Anion Gap 15 H mmol/L (4-12) BUN 36 H D mg/dL (7-17) Creatinine 2.10 H mg/dL (0.7-1.0) Estim Creat Clear Calc 29 ml/min Estimated GFR 23 L (59 - ) Glucose 160 H mg/dL (65-110) Calcium 8.6 mg/dL (8.4-10.2) Magnesium 1.9 mg/dL (1.6-2.3) Patient hx anesthesia problems: none Family hx anesthesia problems: none Results Review: All pre-operative results and documents have been reviewed as part of the pre-operative evaluation. [facility] Past Medical History Medical History Atrial fibrillation Dx Mar 2023; on anticoagulation Chronic kidney disease Diabetes mellitus Hypertension Obesity Social History Social History Smoking packs per day: 0.25 Smoking cigarettes per day: 5.0 Years smoked: 4 Smoking pack-years: 1.00 Smoking status: Former smoker Tobacco type: cigarettes Second hand tobacco smoke exposure: No Smoking end date: 04/03/74 Alcohol intake: current Alcohol use details: last drink was July 15 - . drinks q3 weeks Substance use: current Substance use type: marijuana Other substance usage details: occasional hit of marijuana Lack of Transportation: No Lack of Food: Never True Current Housing: I Have Housing Concerned About Future Housing: No Difficulty Paying Gas/Electric Bills: No Difficulty Paying for Meds: No Currently Unemployed: No Education: Bachelor's Degree Living arrangements: alone Gender identity (if verbalized by the patient): Female Spiritual care concerns: No Anes - Eval Final PreProcedure Day of Procedure 08/16/23 08:41 Patient weight: super morbidly obese Heart: irregular rhythm and tachycardia Lungs: clear to auscultation Airway: Mallampati scale class 1 Neurological: alert and oriented Last oral intake: >/= 8 hours ASA classification: III Emergent: no Anesthetic plan: proceed Anesthesia type and monitoring: general GIVS and standard monitoring Results Review: All pre-operative results and documents have been reviewed as part of the pre-operative evaluation. Informed Consent: The patient's anesthetic plan and its attendant risks and benefits were discussed with the patient/family/POA. Questions were solicited and answers provided to the satisfaction of the patient/family/POA.
--- NOTE | 2023-08-16 09:51 | WPDHPUPDATE1 ---
History and Physical Update Update Date/Time: 08/16/23 09:51 History and Physical has been reviewed, including an updated exam of the patient. There are NO changes in the patient's condition. Risks, benefits, and alternatives have been discussed and questions answered. Patient agrees to proceed with procedure.
--- NOTE | 2023-08-16 09:51 | WPDCARDVER ---
Cardioversion Cardioversion Date of procedure: 08/16/23 Procedure: Synchronized electrical cardioversion Pre-op diagnosis: Atrial fibrillation with RVR Post-op diagnosis: Other (Sinus rhythm) Indications: Symptomatic atrial fibrillation with RVR Description of procedure: Defibrillator pads placed in an AP position. Patient's respiratory status and hemodynamics were monitored throughout the procedure. Time out performed by LOUIS Connolly. Sedation administered by the Anesthesia team. Once patient was adequately sedated, synchronized electrical cardioversion was performed with 1 shock at 250 joules, which restored sinus rhythm. No periprocedural complications. Sedation: Sedation administered by the Anesthesia team. Findings: Successful cardioversion to sinus rhythm with 1 shock at 250 joules. Conclusion: Successful cardioversion to sinus rhythm with 1 shock at 250 joules.
== END 2023-08-16 13:46 | disposition home or self-care (01) ==
PROVIDERS: PCP Physician Assistant; Visit Provider Internal Medicine
PROC: 5A2204Z Restoration of Cardiac Rhythm, Single (ICD-10-PCS; principal; 2023-08-16 08:00)
DX: I48.91 Unspecified atrial fibrillation (principal); I12.9 Hypertensive chronic kidney disease with stage 1 through stage 4 chronic kidney disease, or unspecified chronic kidney disease; E11.22 Type 2 diabetes mellitus with diabetic chronic kidney disease; N18.9 Chronic kidney disease, unspecified; E66.01 Morbid (severe) obesity due to excess calories; Z68.42 Body mass index [BMI] 45.0-49.9, adult; Z79.01 Long term (current) use of anticoagulants; Z79.84 Long term (current) use of oral hypoglycemic drugs; Z87.891 Personal history of nicotine dependence; F12.90 Cannabis use, unspecified, uncomplicated
CPT/HCPCS: 36415; 80048; 83735; 92960; J2704; J7030

== ENCOUNTER 2023-08-23 16:10 | Outpatient (CLI) | payer MEDICARE, SELFPAY ==
[2023-08-23 17:19] LABS: Hematocrit 29.4 % (37.0-47.0); Hemoglobin 8.9 g/dL (12.0-15.0); Mean Corpuscular HGB Conc 30.3 g/dl (32-36); Mean Corpuscular Hemoglobin 25.9 pg (26-34); Mean Corpuscular Volume 85.5 fl (80-100); Mean Platelet Volume 10.8 fl (7.4-10.4); Platelet Count Result 173 k/mm3 (150-375); Red Blood Count 3.44 M/mm3 (4.2-5.4); White Blood Count 5.5 K/mm3 (4.5-10.0)
[2023-08-23 17:29] LABS: Albumin Level 3.4 g/dL (3.5-5.1); Anion Gap 6 mmol/L (4-12); Blood Urea Nitrogen 22 mg/dL (7-17); Calcium 8.4 mg/dL (8.4-10.2); Carbon Dioxide 27 mmol/L (22-30); Chloride 105 mmol/L (98-107); Estimated Glomerular Filt Rate 34; Glucose 187 mg/dL (65-110); Phosphorus 2.4 mg/dL (2.5-4.5); Potassium 3.2 mmol/L (3.4-5.0); Sodium 138 mmol/L (137-145)
[2023-08-23 17:58] LABS: Creatinine Urine 218.1 mg/dL; Total Protein Urine Random 76 mg/dL; Ur Ttl Prot Creatinine Ratio 0.35 mg/mg (0-0.20)
[2023-08-23 18:14] LABS: Vitamin D 25 Hydroxy 14.9 ng/mL
== END 2023-08-23 16:11 | disposition home or self-care (01) ==
PROVIDERS: Internal Medicine Nephrology; PCP Physician Assistant; Visit Provider Internal Medicine
DX: E21.1 Secondary hyperparathyroidism, not elsewhere classified (principal); N18.32 Chronic kidney disease, stage 3b; I48.91 Unspecified atrial fibrillation
CPT/HCPCS: 36415; 80069; 82306; 82570; 83970; 84156; 85027

== ENCOUNTER 2023-08-24 15:40 | Outpatient (CLI) | payer MEDICARE, SELFPAY ==
--- NOTE | 2023-08-24 15:51 | ECG_ITS ---
SEE SCANNED COPY FOR CONFIRMED REPORT MTDD
== END 2023-08-24 15:41 | disposition home or self-care (01) ==
LOC: ANHCARD 15:43
PROVIDERS: PCP Physician Assistant; Visit Provider Internal Medicine
DX: I48.91 Unspecified atrial fibrillation (principal)
CPT/HCPCS: 93005

== ENCOUNTER 2023-09-28 11:36 | Outpatient (CLI) | payer MEDICARE, SELFPAY ==
--- NOTE | ~2023-09-28 | US_ITS ---
BILATERAL LOWER EXTREMITY VENOUS ULTRASOUND Ordering provider: Rosanne Emerson, PA History: . VENOUS STASIS ULCER W/EDEMA OF RIGHT LOWER LEG . Comparison: None. FINDINGS: RIGHT LOWER EXTREMITY VEINS: --COMMON FEMORAL: Patent and free of thrombus. Normal compressibility, phasic flow and augmentation. --PROXIMAL SUPERFICIAL FEMORAL: Patent and free of thrombus. Normal compressibility, phasic flow and augmentation. --DISTAL SUPERFICIAL FEMORAL: Patent and free of thrombus. Normal compressibility, phasic flow and au gmentation. --POPLITEAL: Patent and free of thrombus. Normal compressibility, phasic flow and augmentation. --POSTERIOR TIBIAL: Patent and free of thrombus. Normal compressibility, phasic flow and augmentation . LEFT LOWER EXTREMITY VEINS: --COMMON FEMORAL: Patent and free of thrombus. Normal compressibility, phasic flow and augmentation. --PROXIMAL SUPERFICIAL FEMORAL: Patent and free of thrombus. Normal compressibility, phasic flow and augmentation. --DISTAL SUPERFICIAL FEMORAL: Patent and free of thrombus. Normal compressibility, phasic flow and au gmentation. --POPLITEAL: Patent and free of thrombus. Normal compressibility, phasic flow and augmentation. --POSTERIOR TIBIAL: Patent and free of thrombus. Normal compressibility, phasic flow and augmentation . IMPRESSION: Negative bilateral lower extremity venous US. No deep vein thrombosis. Reviewed, dictated and finalized at location A.
[2023-09-28 12:50] LABS: Basophils Absolute Auto 0.1 K/mm3 (0.0-0.1); Basophils Percent Auto 1.2 % (0.2-1.2); Eosinophils Absolute Auto 0.4 K/mm3 (0-0.3); Eosinophils Percent Auto 5.9 % (0-4.4); Hemoglobin 8.6 g/dL (12.0-15.0); Immature Granulocyte Absolute 0.02 K/mm3 (0.00-0.031); Immature Granulocyte Percent A 0.3 % (0-0.5); Lymphocytes Absolute Auto 2.54 K/mm3 (0.9-3.2); Lymphocytes Percent Auto 36.6 % (18.3-44.2); Mean Corpuscular HGB Conc 29.7 g/dl (32-36); Mean Corpuscular Hemoglobin 24.9 pg (26-34); Mean Corpuscular Volume 84.1 fl (80-100); Mean Platelet Volume 10.9 fl (7.4-10.4); Monocytes Absolute Auto 0.7 K/mm3 (0.1-0.6); Monocytes Percent Auto 10.4 % (2.6-8.5); Neutrophils Absolute Auto 3.2 K/mm3 (1.3-6.7); Neutrophils Percent Auto 45.6 % (45.5-73.1); Platelet Count Result 267 k/mm3 (150-375); Red Blood Count 3.45 M/mm3 (4.2-5.4); White Blood Count 6.9 K/mm3 (4.5-10.0)
[2023-09-28 13:04] LABS: Iron 24 ug/dL (37-170)
[2023-09-28 13:19] LABS: Percent Iron Saturation 6 % (20-50)
[2023-09-28 13:44] LABS: Anisocytosis 1+; Crenated RBC 1+; Hypochromasia 1+; Ovalocytes 1+; Platelet Estimate Adequate (Adequate); Schistocytes None Seen
[2023-09-28 13:56] LABS: Folic Acid 10.6 ng/mL (2.76->20)
== END 2023-09-28 11:37 | disposition home or self-care (01) ==
PROVIDERS: PCP Physician Assistant; Referring Provider Internal Medicine Nephrology; Visit Provider Physician Assistant
DX: N18.32 Chronic kidney disease, stage 3b (principal); D64.9 Anemia, unspecified; L97.919 Non-pressure chronic ulcer of unspecified part of right lower leg with unspecified severity; R60.9 Edema, unspecified
CPT/HCPCS: 36415; 82607; 82728; 82746; 83540; 83550; 85025; 93970

== ENCOUNTER 2024-02-22 14:11 | Outpatient (CLI) | payer MEDICARE, SELFPAY ==
[2024-02-22 14:31] LABS: Basophils Absolute Auto 0.1 K/mm3 (0.0-0.1); Basophils Percent Auto 0.8 % (0.2-1.2); Eosinophils Absolute Auto 0.5 K/mm3 (0-0.3); Eosinophils Percent Auto 6.4 % (0-4.4); Hematocrit 33.5 % (37.0-47.0); Hemoglobin 10.6 g/dL (12.0-15.0); Immature Granulocyte Absolute 0.02 K/mm3 (0.00-0.031); Immature Granulocyte Percent A 0.3 % (0-0.5); Lymphocytes Absolute Auto 2.07 K/mm3 (0.9-3.2); Lymphocytes Percent Auto 28.8 % (18.3-44.2); Mean Corpuscular HGB Conc 31.6 g/dl (32-36); Mean Corpuscular Hemoglobin 30.5 pg (26-34); Mean Corpuscular Volume 96.3 fl (80-100); Mean Platelet Volume 9.3 fl (7.4-10.4); Monocytes Absolute Auto 0.6 K/mm3 (0.1-0.6); Monocytes Percent Auto 8.3 % (2.6-8.5); Neutrophils Percent Auto 55.4 % (45.5-73.1); Platelet Count Result 211 k/mm3 (150-375); Red Blood Count 3.48 M/mm3 (4.2-5.4); Red Cell Distribution Width 14.1 % (11.5-14.5); White Blood Count 7.2 K/mm3 (4.5-10.0)
[2024-02-22 17:42] LABS: Iron 71 ug/dL (37-170)
[2024-02-22 17:48] LABS: Percent Iron Saturation 24 % (20-50)
[2024-02-22 23:56] LABS: Alanine Aminotransferase 16 U/L (6-35); Albumin Level 3.7 g/dL (3.5-5.1); Alkaline Phosphatase 94 U/L (38-126); Anion Gap 3 mmol/L (4-12); Aspartate Amino Transferase 35 U/L (14-36); Bilirubin,Total 0.5 mg/dL (0.2-1.3); Blood Urea Nitrogen 17 mg/dL (7-17); Calcium 8.8 mg/dL (8.4-10.2); Carbon Dioxide 25 mmol/L (22-30); Chloride 110 mmol/L (98-107); Estimated Glomerular Filt Rate 44; Glucose 147 mg/dL (65-110); Potassium 5.4 mmol/L (3.4-5.0); Sodium 138 mmol/L (137-145)
[2024-02-23 00:54] LABS: Folic Acid > 20.0 ng/mL (2.76->20)
== END 2024-02-22 14:12 | disposition home or self-care (01) ==
LOC: ANHLAB 14:12
PROVIDERS: PCP Physician Assistant; Visit Provider Internal Medicine Hematology & Oncology
DX: D50.9 Iron deficiency anemia, unspecified (principal)
CPT/HCPCS: 36415; 80053; 82607; 82728; 82746; 83540; 83550; 85025

== ENCOUNTER 2024-03-12 14:54 | Outpatient (CLI) | payer MEDICARE, SELFPAY ==
[2024-03-12 16:03] LABS: Hematocrit 36.8 % (37.0-47.0); Hemoglobin 11.9 g/dL (12.0-15.0); Mean Corpuscular HGB Conc 32.3 g/dl (32-36); Mean Corpuscular Hemoglobin 30.8 pg (26-34); Mean Corpuscular Volume 95.3 fl (80-100); Mean Platelet Volume 10.8 fl (7.4-10.4); Platelet Count Result 269 k/mm3 (150-375); Red Blood Count 3.86 M/mm3 (4.2-5.4); White Blood Count 9.9 K/mm3 (4.5-10.0)
[2024-03-12 16:19] LABS: Anion Gap 8 mmol/L (4-12); Blood Urea Nitrogen 26 mg/dL (7-17); Carbon Dioxide 19 mmol/L (22-30); Chloride 109 mmol/L (98-107); Estimated Glomerular Filt Rate 32; Glucose 232 mg/dL (65-110); Phosphorus 3.1 mg/dL (2.5-4.5); Sodium 136 mmol/L (137-145)
[2024-03-12 16:21] LABS: Creatinine Urine 92.3 mg/dL; Total Protein Urine Random 9 mg/dL
[2024-03-12 16:27] LABS: Parathyroid Intact 86.9 pg/mL (14.5-75.2)
== END 2024-03-12 14:55 | disposition home or self-care (01) ==
LOC: ANHLAB 14:56
PROVIDERS: PCP Physician Assistant; Visit Provider Internal Medicine Nephrology
DX: D64.9 Anemia, unspecified (principal); N18.9 Chronic kidney disease, unspecified
CPT/HCPCS: 36415; 80069; 82570; 83970; 84156; 85027

== ENCOUNTER 2024-05-24 15:21 | Outpatient (CLI) | payer MEDICARE, SELFPAY ==
--- OUTSIDE RECORDS SUMMARY | 2024-05-24 15:24 | XMS_ITS | Clinical Summary ---
Author Organization [facility] Address [address] [place] [address] Phone Care Team Providers Care Solutions Sales Executive Name Role Phone Kirsten Pendleton MD Primary Care Provider [phone] Allergies No known active allergies Medications Medication Sig Dispensed Refills Start Date End Date Status glipiZIDE (GLUCOTROL) 10 MG tablet Take 20 mg by mouth 1 (one) time each day 04/07/2019 Active lisinopril (PRINIVIL,ZESTRIL) 10 MG tablet Take 10 mg by mouth 1 (one) time each day 04/09/2019 Active metFORMIN (GLUCOPHAGE) 850 MG tablet Take 1,700 mg by mouth 1 (one) time each day 04/07/2019 Active sertraline (ZOLOFT) 100 MG tablet Take 100 mg by mouth 1 (one) time each day 04/07/2019 Active rosuvastatin (CRESTOR) 20 MG tablet Take 20 mg by mouth 1 (one) time each day 07/30/2019 Active sertraline (ZOLOFT) 50 MG tablet Take 50 mg by mouth 1 (one) time each day 04/22/2021 Active Active Problems Problem Noted Date Diagnosed Date Stage 3b chronic kidney disease 03/28/2019 Acute kidney failure 07/07/2016 Anemia 07/07/2016 Other and unspecified hyperlipidemia 07/07/2016 Hyponatremia 07/07/2016 Type 2 diabetes mellitus without complication Essential hypertension 07/07/2016 Immunizations Name Administration Dates Next Due Influenza TIV (IM) 06/16/2021(Deferred: Patient Refused) Pfizer Sars-cov-2 Vaccination 01/12/2021, 021,06/21/2020 Pneumococcal Polysaccharide 12/09/2014 Pneumococcal, Unspecified 12/09/2014 Tdap 02/07/2012,02/07/2012 Social History Tobacco Use Types Packs/Day Years Used Date Smoking Tobacco: Former Smokeless Tobacco: Never Alcohol Use Standard Drinks/Week Comments Yes 2 (1 standard drink = 0.6 oz pur e alcohol) Sex and Gender Information Value Date Recorded Sex Assigned at Not on file Gender Identity Not on file Sexual Orientation Not on file Last Filed Vital Signs Vital Sign Reading Time Taken Comments Blood Pressure 122/70 12/20/2021 11:37 AM CDT Pulse 84 12/20/2021 11:37 AM CDT Temperature 34.8 C (94.6 F) 12/20/2021 11:37 AM CDT Respiratory Rate - - Oxygen Saturation - - Inhaled Oxygen Concentration - - Weight 126 kg (277 lb) 12/20/2021 11:37 AM CDT Height 167.6 cm (5' 6 ) 12/20/2021 11:37 AM CDT Body Mass Index 44.71 12/20/2021 11:37 AM CDT Plan of Treatment Health Maintenance Due Date Last Done Comments Pneumococcal PPSV23/PCV13 65 + Years / High and Highest Risk (2 of 3 - PCV) 12/10/2015 12/09/2014 Pneumococcal PPSV23/PCV13 65 + Years / Low and Medium Risk (2 of 3 - PCV) 12/10/2015 12/09/2014 COVID-19 Vaccine ( season) 2023 01/12/2021, 07/03/2020, 06/21/2020 Influenza Vaccine (#1) 2023 Care Teams Solutions Sales Executive Relationship Specialty Start Date End Date Kirsten Pendleton MD [address] [place] [address] PCP - General Family Medicine 04/01/19
--- OUTSIDE RECORDS SUMMARY | 2024-05-24 15:24 | XMS_ITS | Clinical Summary ---
Author Organization [facility] Address [address] [place] [address] Phone Care Team Providers Care Grain Combine Driver Name Role Phone TarikrosiobriandaBridget TOE POUNDER Primary Care Provider Allergies Active Allergy Reactions Criticality Noted Date Comments Other Runny Nose Medium 02/22/2017 SEASONAL-MOLDS, GRASS, ETC Medications sertraline (ZOLOFT) 50 MG Tablet Take 100 mg by mouth daily. Active glipiZIDE (GLUCOTROL) 10 MG Tablet Take 10 mg by mouth daily. 2 TABS Active SITagliptin (JANUVIA) 100 MG Tablet Take 100 mg by mouth daily. Active lisinopril (PRINIVIL, ZESTRIL) 10 MG Tablet Take 10 mg by mouth daily. Active metFORMIN (GLUCOPHAGE) 850 MG Tablet Take 850 mg by mouth daily. 2 TABS Active rosuvastatin (CRESTOR) 5 MG Tablet Take 5 mg by mouth daily. Active cetirizine (ZYRTEC ALLERGY) 10 MG Tablet Take 10 mg by mouth daily as needed. Active ondansetron (ZOFRAN-ODT) 4 MG TABLET DISPERSIBLE Take 1 Tab by mouth every 12 hours as needed. 30 Tab 0 7 Active senna-docusate (SENOKOT S) 8.6-50 MG Tablet Take 1 Tab by mouth 2 times daily as needed. 30 Tab 0 7 Active ascorbic acid 500 MG Tablet Take 1 Tab by mouth 2 times daily. 30 Tab 0 7 Active aspirin EC (ECOTRIN) 325 MG Tablet Delayed ResponseIndicati ons:Surgical DVT/VTE Prophylaxis Take 1 Tab by mouth every 12 hours. 56 Tab 7 Active polyethylene glycol (GLYCOLAX, MIRALAX) Pack Take 1 Packet by mouth every morning. Dissolve in 4-8 oz of liquid. 90 Packet 7 Active HYDROcodone-acet aminophen (NORCO) 5-325 MG TabletIndication s:Moderate to Moderately Severe Pain Take 1-2 Tabs by mouth every 4 hours as needed. 63 Tab 7 Active Active Problems Problem Noted Date Diagnosed Date Primary osteoarthritis of left knee 07/05/2016 Family History Medical History Relation Name Comments No Known Problems Father Cancer Mother Relation Name Status Comments Father Mother Social History Tobacco Use Types Packs/Day Years Used Date Smoking Tobacco: Former Cigarettes Q uit: 06/14/1972 Smokeless Tobacco: Never Tobacco Cessation:Counseling Given: Yes Alcohol Use Standard Drinks/Week Comments Yes 6 (1 standard drink = 0.6 oz pur e alcohol) margaritas, beer; once a week Sexually Active Control Partners Comments Never Comments Unknown Sex and Gender Information Value Date Recorded Sex Assigned at Not on file Legal Sex Female 9:18 AM HEAD OF GLOBAL STR[employer]NER[employer] Gender Identity Not on file Sexual Orientation Not on file Last Filed Vital Signs Vital Sign Reading Time Taken Comments Blood Pressure 150/68 03/09/2017 7:45 AM HEAD OF [employer] Pulse 105 03/08/2017 10:53 PM [employer] Temperature 37.3 C (99.2 F) 03/09/2017 7:45 AM [employer] Respiratory Rate 18 03/09/2017 7:45 AM [employer] OF [employer] Oxygen Saturation 95% 03/09/2017 7:45 AM HEAD OF [employer] Inhaled Oxygen Concentration - - Weight 115.7 kg (255 lb) 03/06/2017 2:20 PM [employer] Height 167.6 cm (5' 6 ) 03/06/2017 2:20 PM HEAD OF [employer] Body Mass Index 41.16 03/06/2017 2:20 PM HEAD OF [employer] Plan of Treatment Health Maintenance Due Date Last Done Comments DEXA Bone Density 1950 Hepatitis C Virus (HCV) Screening 1950 TdaP Immunization 1950 Colonoscopy 1994 Colorectal Cancer Screening 1994 Cologuard 07/16/1999 Immunochemical Fecal Occult Blood 07/16/1999 Mammogram 07/16/1999 Pneumococcal Immunization (5 0+ years) (1 of 1 - PCV) 07/16/1999 Zoster Immunization (1 of 2) 07/16/1999 Influenza Immunization (#1) 2023 SARS-COV-2 Immunization ( season) 2023 Respiratory Syncytial Virus (RSV) Immunization (Adult) (1 - 1-dose 75+ series) 2024 Hepatitis B Immunization Aged Out No longer eligible based on patient's age to complete this topic Meningococcal Immunization (ACWY) Aged Out No longer eligible based on patient's age to complete this topic Rotavirus Immunization Aged Out No lo nger eligible based on patient's age to complete this topic Medical Devices Implanted Type Area Retort Setter Device Identifier Shelf Expiration Date Model / Serial / Lot Cmnt Bn Endrn Sst Gnta 40gm Hvisc - [id number] Implanted:Qty: 2 on 07/04/2016 by Rian Foss MD at [facility] IMPLANT Left: Knee JNJ / [employer] 01/31/2018 [id number] / / [id number] Cmnt Bn Cmw2 20gm Strl - [id number] Implanted:Qty: 1 on 07/04/2016 by Rian Foss MD at [facility] IMPLANT Left: Knee [employer] / [employer] 08/31/2017 [id number] / / [id number] Cmpnt Ptlr 38mm Medialized Dome Attune - [id number] Implanted:Qty: 1 on 07/04/2016 by Rian Foss MD at [facility] IMPLANT Left: Knee [employer] / [employer] 01/31/2021 [id number] / / [id number] Cmnt Bn Sst Gnta Hvisc 40gm - [id number] Implanted:Qty: 1 on 03/06/2017 by Rian Foss MD at [facility] IMPLANT Right: Knee [employer] / [employer] 12/31/2017 [id number] / [id number] / [id number] Cmnt Bn Sst Gnta Hvisc 40gm - [id number] Implanted:Qty: 1 on 03/06/2017 by Rian Foss MD at [facility] IMPLANT Right: Knee [employer] / [employer] 01/31/2018 [id number] / [id number] / [id number] Dome Ptlr 35mm Attune Kn Aox Cmnt - [id number] Implanted:Qty: 1 on 03/06/2017 by Rian Foss MD at [facility] IMPLANT Right: Knee [employer] / [employer] 12/01/2021 [id number] / [id number] / [id number] Attune Tibial Base Size 6 Cemented Implanted:Qty: 1 on 07/04/2016 by Rian Foss MD at [facility] Left: Knee [employer] 03/02/2026 [id number] / / [id number] Attune Tibial Insert Size 6, 8mm Implanted:Qty: 1 on 07/04/2016 by Rian Foss MD at [facility] Left: Knee [employer] 10/31/2017 [id number] / / [id number] Attune Femoral Size 6, Left Cemented Implanted:Qty: 1 on 07/04/2016 by Rian Foss MD at [facility] Left: Knee [employer] 03/02/2026 [id number] / / [id number] Attune Tibial Base Implanted:Qty: 1 on 03/06/2017 by Rian Foss MD at [facility] Right: Knee [employer] 07/01/2026 [id number] / [id number] / [id number] Attune Knee System Revision Cemented Stem Implanted:Qty: 1 on 03/06/2017 by Rian Foss MD at [facility] Right: Knee [employer] 12/31/2026 [id number] / [id number] / [id number] Attune Femoral Posterior Stabilized Implanted:Qty: 1 on 03/06/2017 by Rian Foss MD at [facility] Right: Knee [employer] 07/01/2026 1504-10-206 / 1504-206 / [id number] Attune Tibial Insert Implanted:Qty: 1 on 03/06/2017 by Rian Foss MD at [facility] Right: Knee [employer] 11/30/2021 [id number] / [id number] / [id number] Insurance [facility] MEDICARE Care Teams Grain Combine Driver Relationship Specialty Start Date End Date Bridget Trinidad APRN [address] [place] [address] PCP - General Advanced Practice Nurse 06/17/16
--- OUTSIDE RECORDS SUMMARY | 2024-05-24 15:24 | XMS_ITS | Clinical Summary ---
Author Organization [facility] Address [address] [place] [address] Phone Care Team Providers Care Polo Coach Name Role Phone Unavailable Primary Care Provider Unavailabl e Allergies No known active allergies Medications atorvastatin (LIPITOR) 40 mg tablet Take 40 mg by mouth daily. Active ferrous sulfate 325 mg (65 mg iron) tablet Take 650 mg by mouth daily with breakfast. Active glipiZIDE (GLUCOTROL) 10 mg tablet Take 10 mg by mouth daily. Active lisinopriL (PRINIVIL) 10 mg tablet Take 5 mg by mouth daily. Active metFORMIN (GLUCOPHAGE) 850 mg tablet Take 850 mg by mouth daily. Active metoprolol tartrate (LOPRESSOR) 25 mg tablet Take 12.5 mg by mouth 2 times daily. 06/20/2023 Active rivaroxaban (Xarelto) 20 mg Tablet Take 20 mg by mouth daily with supper. 05/18/2023 Active sertraline (ZOLOFT) 50 mg tablet Take 50 mg by mouth daily. 04/22/2021 Active Jardiance 10 mg tablet Take 10 mg by mouth daily. Active biotin 1 mg Capsule Take by mouth. Active Active Problems No known active problems Encounters Date Type Department Care Team Description 05/24/2024 Telephone [facility] - [place] [address] [place] [address] Gurjit Ayala MD labs for appt 05/22/2024 External Device Data STL ABSTRACTION Provider, Abstract 04/25/2024 External Device Data STL ABSTRACTION Provider, Abstract 03/05/2024 External Device Data STL ABSTRACTION Provider, Abstract 02/26/2024 Orders Only [facility] [address] [place] [address] Gurjit Ayala MD 02/23/2024 12:30 PM [facility] Office Visit [facility] [address] [place] [address] Gurjit Ayala MD Chronic anemia (Primary Dx) from Last 3 Months Family History Medical History Relation Name Comments Heart Disease Brother Pancreatic Cancer Brother No Known Problems Father Breast Cancer Mother Heart Disease Mother Uterine Cancer Mother Relation Name Status Comments Brother Father Mother Social History Tobacco Use Types Packs/Day Years Used Date Smoking Tobacco: Former Cigarettes 0.3 4 0 11/16/1969 - 11/16/1973 Smokeless Tobacco: Never Tobacco Cessation:Counseling Given: Not Answered Alcohol Use Standard Drinks/Week Comments Yes 0 (1 standard drink = 0.6 oz pur e alcohol) Socially Comments Unknown Sex and Gender Information Value Date Recorded Sex Assigned at Not on file Legal Sex Female 9:21 AM CDT Gender Identity Not on file Sexual Orientation Not on file Last Filed Vital Signs Vital Sign Reading Time Taken Comments Blood Pressure 113/59 02/23/2024 12:33 PM [facility] Pulse 62 02/23/2024 12:33 PM [facility] Temperature 36.5 C (97.7 F) 02/23/2024 12:33 PM [facility] Respiratory Rate 16 02/23/2024 12:33 PM [facility] Oxygen Saturation 97% 02/23/2024 12:33 PM [facility] Inhaled Oxygen Concentration - - Weight 118.8 kg (262 lb) 02/23/2024 12:33 PM [facility] Height 165.1 cm (5' 5 ) 11/17/2023 10:49 AM CDT Body Mass Index 43.6 11/17/2023 10:49 AM CDT Plan of Treatment Upcoming Encounters Date Type Department Care Team (Late st Contact Info) Description 05/27/2024 2:00 PM [facility] Office Visit [facility] [address] [place] [address] Gurjit Ayala MD [address] [facility] [address] [place] [address] Health Maintenance Due Date Last Done Comments DIABETES ANNUAL FOOT EXAM 07/16/1967 DIABETES ANNUAL RETINAL EXAM 07/16/1967 DIABETES MICROALBUMIN ANNUAL SCREEN 07/16/1967 LDL CHOLESTEROL ANNUAL 07/16/1967 Traditional Medicare (ACO) A nnual Wellness Visit 1968 COLORECTAL SCREENING 1994 Colorectal Cancer Screening 1994 FIT-DNA Q 3 years 1994 FIT/FOBT Q 1 year 1994 Flex Sig/CT Colonography Q 5 years 1994 ZOSTER VACCINE (1 of 2) 07/16/1999 RSV VACCINE (60+ or ) (1 - Risk 60-74 years 1-dose series) 2009 OSTEOPOROSIS SCREENING 2014 DIABETES HBA1C Q 6 MONTHS 09/11/2017 03/13/2017 DTAP/TDAP/TD VACCINES (2 - T d or Tdap) 02/06/2022 02/07/2012 INFLUENZA VACCINE (#1) 2023 COVID-19 Vaccine ( - 2023-2 5 season) 2023 01/12/2021, 07/03/2020, 06/21/2020, Additional history exists BREAST CANCER SCREENING 03/09/2024 03/09/20 23, 11/26/2021, 07/28/2020, Additional history exists PNEUMOCOCCAL VACCINE 65+ YEARS Completed 0 05/10/2023, 12/09/2014, 12/09/2014 Procedures Procedure Name Priority Date/Time Associated Diagnosis Comments IRON LEVEL Routine 02/23/2024 3:27 PM [facility] COMPREHENSIVE METABOLIC PANEL Routine 02/22/2024 2:28 PM [facility] HEMOGLOBIN A1C Routine 03/13/2017 7:28 AM [facility] Encounter for general adult medical examination without abnormal findings from Last 3 Months or Most Recently Relevant to Health Maintenance Results * IRON LEVEL (02/23/2024 3:27 PM [facility]) Blood us Gurjit Ayala MD CHEMISTRY ORDERABLES Final Resu lt * COMPREHENSIVE METABOLIC PANEL (02/22/2024 2:28 PM [facility]) Blood us Gurjit Ayala MD CHEMISTRY ORDERABLES Final Resu lt * (ABNORMAL) HEMOGLOBIN A1C (03/13/2017 7:28 AM [facility]) HEMOGLOBIN A1C 6.3(H) 4.0 - 6.0 % 03/13/2017 10:54 AM [facility] EST. AVG GLUCOSE, A1C 134 mg/dL 03/13/2017 10:54 AM [facility] Blood Venipuncture / Unknown 03/13/2017 7:28 AM [facility] 03/13/2017 9:18 AM [facility] Zain Smith MD CHEMISTRY ORDERABLES Final R esult [facility]Sort [facility] CLIA# [id number] [address] [place] [address] from Last 3 Months or Most Recently Relevant to Health Maintenance Insurance MEDICARE PART A AND B [facility] [id number]
--- OUTSIDE RECORDS SUMMARY | 2024-05-24 15:24 | XMS_ITS | Clinical Summary ---
Author Organization [facility] Address [address] [place] [address] Care Team Providers Care Garage Door Opener Installer Name Role Phone Ashanti Dove NP Primary Care Provider [phone] Social History Tobacco Use Types Packs/Day Years Used Date Smoking Tobacco: Never Assessed Comments Unknown Sex and Gender Information Value Date Recorded Sex Assigned at Not on file Legal Sex Female 7:53 PM CDT Gender Identity Not on file Sexual Orientation Not on file Plan of Treatment Health Maintenance Due Date Last Done Comments Colorectal Cancer Screening Colonoscopy (10 Years) 1950 Hepatitis C 07/16/1967 Zoster Vaccines (1 of 2) 07/16/1999 Annual Medicare Wellness Visit 2014 Dexa Scan (General) 2014 DTaP, Tdap and Td Vaccines (2 - Td or Tdap) 02/06/2022 02/07/2012 COVID-19 Vaccine ( season) 2023 01/12/2021, 07/03/2020, 06/21/2020, Additional history exists Influenza Adult (#1) 2024 RSV Immunization or 60+ Years (1 - 1-dose 75+ series) 2024 Mammogram Screening 03/09/2025 03/09/2023, 11/26/2021, 07/28/2020, Additional history exists Pneumococcal Vaccine: 65+ Years Completed 05/10/2023, 12/09/2014 Meningococcal B Vaccine Aged Out No l onger eligible based on patient's age to complete this topic Meningococcal Vaccine Aged Out No nick ronnie eligible based on patient's age to complete this topic RSV Immunizations Under 20 Months Aged Out No longer eligible based on patient's age to complete this topic Insurance MEDICARE [facility] Care Teams Garage Door Opener Installer Relationship Specialty Start Date End Date Ashanti Dove NP [address] [facility] [address] [place] [address] PCP - General NURSE PRACTITIONER ADULT HEALTH 09/07/23
--- OUTSIDE RECORDS SUMMARY | 2024-05-24 15:24 | XMS_ITS | Encounter Summary ---
Author Organization [facility] Address [address] [place] [address] Care Team Providers Care Project/Production Manager Imaging Name Role Phone Unavailable Primary Care Provider Unavailabl e Encounter Details Date Type Department Care Team (Late st Contact Info) Description 05/22/2024 External Device Data [facility] ABSTRACTION Provider, Abstract NO ADDRESS ON FILE Social History Tobacco Use Types Packs/Day Years Used Date Smoking Tobacco: Former Cigarettes 0.3 4 0 11/16/1969 - 11/16/1973 Smokeless Tobacco: Never Alcohol Use Standard Drinks/Week Comments Yes 0 (1 standard drink = 0.6 oz pur e alcohol) Socially Comments Unknown Sex and Gender Information Value Date Recorded Sex Assigned at Not on file Legal Sex Female 9:21 AM CDT Gender Identity Not on file Sexual Orientation Not on file documented as of this encounter Plan of Treatment Upcoming Encounters Date Type Department Care Team (Late st Contact Info) Description 05/27/2024 2:00 PM WEB SITE ADMIN Office Visit [facility] Oncology and Hematology - [place] [address] [facility] [address] [place] [address] Gurjit Ayala MD [address] [facility] [address] [place] [address] documented as of this encounter Visit Diagnoses Not on filedocumented in this encounter
--- OUTSIDE RECORDS SUMMARY | 2024-05-24 15:24 | XMS_ITS | Encounter Summary ---
Author Organization [facility] Address [address] [place] [address] Care Team Providers Care Bike Assembler Name Role Phone Unavailable Primary Care Provider Unavailabl e Reason for Visit * Reason Onset Date Comments labs for appt 05/24/2024 Encounter Details Date Type Department Care Team (Late Contact Info) Description 05/24/[address] [facility] Oncology and Hematology [facility] [address] [place] [address] Gurjit Ayala MD [address] [facility] [address] [place] [address] labs for appt Social History Tobacco Use Types Packs/Day Years [...] on file documented as of this encounter Miscellaneous Notes * Telephone Encounter - Jeannie Ponce - 05/24/2024 8:49 AM CST LVM for patient to see if she could complete her labs before her appointment on Monday. N SHAMPOO ASSISTANT documented in this encounter Plan of Treatment Upcoming Encounters Date Type Department Care Team (Late Contact Info) Description 05/27/2024 2:00 PM SALON SHAMPOO ASSISTANT Office Visit [facility] Oncology and Hematology [facility] [address] [place] [address] Gurjit Ayala MD [facility] [address] [address] documented as of this encounter Visit Diagnoses Not on filedocumented in this encounter
--- OUTSIDE RECORDS SUMMARY | 2024-05-24 15:24 | XMS_ITS | Encounter Summary ---
Author Organization [facility] Address [address] [place] [address] Care Team Providers Care In School Suspension Coordinator Name Role Phone Kirsten Pendleton NP Primary Care Provider [phone] Rosanne Emerson Primary Care Provider + Encounter Details Date Type Department Care Team (Late st Contact Info) Description 08/16/2023 Orders Only [facility] Information Management [address] [place] [address] Scanning, Provider Social History Tobacco Use Types Packs/Day Years Used Date Smoking Tobacco: Former Smokeless Tobacco: Never Comments Unknown Sex and Gender Information Value Date Recorded Sex Assigned at Not on file Legal Sex Female 7:43 PM MOVABLE BULKHEAD INSTALLER Gender Identity Not on file Sexual Orientation Not on file documented as of this encounter Plan of Treatment Not on file documented as of this encounter Procedures Procedure Name Priority Date/Time Associated Diagnosis Comments SCAN - LABS 08/16/2023 documented in this encounter Results * SCAN - LABS (08/16/2023) us Provider Scanning Final Result documented in this encounter Visit Diagnoses Not on filedocumented in this encounter Care Teams In School Suspension Coordinator Relationship Specialty Start Date End Date Kirsten Pendleton NP [address] [place] [address] PCP - General 07/28/20 08/24/23 Rosanne Emerson PA [address] [place] [address] PCP - General Physician Terrazzo Installer 08/25/23 documented as of this encounter
--- OUTSIDE RECORDS SUMMARY | 2024-05-24 15:24 | XMS_ITS | Clinical Summary ---
Author Organization [facility] 8 [facility] Address [address] [place] [address] Care Team Providers Care Completions Engineer Name Role Phone Rosanne Emerson Primary Care Provider + Allergies Active Allergy Reactions Criticality Noted Date Comments Other Unknown Medium 02/22/2017 SEASONAL-MOLDS, GRASS, ETC Medications sertraline (ZOLOFT) 100 mg tablet take 1 tablet by oral route every day 0 0 7 Active Additional Information Patient taking differently: 50 mg oral Daily, Reported on 07/28/2023 metFORMIN (GLUCOPHAGE) 850 mg tablet Take 1 tablet (850 mg total) by mouth 2 (two) times a day with meals 8 Active glipiZIDE (GLUCOTROL) 10 mg tabletIndicati ons:type 2 diabetes mellitus 8 Active atorvastatin (LIPITOR) 40 mg tablet Take 1 tablet (40 mg total) by mouth daily Active furosemide (LASIX) 20 mg tablet Take 2 tablets (40 mg total) by mouth daily Active Xarelto 20 mg tablet Take 1 tablet (20 mg total) by mouth daily with dinner 4 Active potassium chloride ER (KLOR-CON) 20 mEq CR tablet Take 1 tablet (20 mEq total) by mouth daily 30 tablet 11 4 08/25/19 25 Active empagliflozin (JARDIANCE) 10 mg tabletIndicati ons:heart failure associated with type 2 diabetes mellitus Take 1 tablet (10 mg total) by mouth daily 90 tablet 3 4 Active lisinopriL (PRINIVIL,ZEST RIL) 10 mg tablet Take 0.5 tablets (5 mg total) by mouth daily Active ferrous sulfate (iron) 325 mg (65 mg of elemental iron) tabletIndicati ons:Iron Deficiency Anemia Take 2 tablets (650 mg total) by mouth daily with breakfast Active miscellaneous medical supply mis 1 Units as needed (as directed by physical therapist for lymphedema treatment to legs) Lymphedema leg pump for bilateral legs as directed by physical therapist 1 each 4 Active metoprolol XL (TOPROL-XL) 25 mg extended release tablet Take 1 tablet (25 mg total) by mouth daily 90 tablet 3 5 Active metoprolol tartrate (LOPRESSOR) 25 mg immediate release tablet Take 0.5 tablets (12.5 mg total) by mouth 2 (two) times a day 4 05/02/19 25 Discontin ued(Thera py completed ) Active Problems Problem Noted Date Diagnosed Date Chronic heart failure with p reserved ejection fraction (CMS/HCC) 05/02/2024 Lymphedema 05/02/2024 Syncope and collapse 11/07/2023 JULIO C (obstructive sleep apnea) 10/16/2023 Atrial fibrillation (CMS/HCC) 07/28/2023 Chronic anticoagulation 07/28/2023 Hyperlipidemia 07/28/2023 Morbid obesity 07/28/2023 Acute sinusitis 07/25/2017 Depressive disorder 07/25/2017 Diabetes mellitus 07/25/2017 Hypertension 07/25/2017 Lesion of tongue 07/25/2017 Serum creatinine raised 07/25/2017 Primary osteoarthritis of left knee 07/05/2016 Encounters Date Type Department Care Team Description 05/02/2024 3:30 PM WIRE MESH GATE ASSEMBLER Office Visit [facility] Medical [facility] Cardiology [address] [facility] [address] [place] [id number] Mitch Dunn MD Paroxysmal atrial fibrillation (CMS/HCC) (HCC) (Primary Dx); Chronic anticoagulation; Chronic heart failure with preserved ejection fraction (CMS/HCC) (HCC); Lymphedema; Primary hypertension; Mixed hyperlipidemia from Last 3 Months Surgical History Surgery Date Site/Laterality Comments CARPAL TUNNEL RELEASE Carpal tunnel release KNEE ARTHROPLASTY Knee replacement Medical History Medical History Date Comments Type 2 diabetes mellitus (HCC) D iabetes type 2 Hyperlipidemia Hyperlipidemia Hypertension Hypertension Osteoarthritis Osteoarthritis Depression Depression Family History Medical History Relation Name Comments Breast cancer Maternal cousin Cancer Other Family history of Cancer, unknown; Relation Name Status Comments Maternal cousin Other Social History Tobacco Use Types Packs/Day Years Used Date Smoking Tobacco: Former Smokeless Tobacco: Never Tobacco Cessation:Counseling Given: Not Answered Comments Unknown Sex and Gender Information Value Date Recorded Sex Assigned at Not on file Legal Sex Female 7:43 PM WIRE MESH GATE ASSEMBLER Gender Identity Not on file Sexual Orientation Not on file Obstetrics History Last Filed Vital Signs Vital Sign Reading Time Taken Comments Blood Pressure 128/56 05/02/2024 3:43 PM WIRE MESH GATE ASSEMBLER Pulse 64 05/02/2024 3:43 PM WIRE MESH GATE ASSEMBLER Temperature - - Respiratory Rate - - Oxygen Saturation 96% 05/02/2024 3:43 PM WIRE MESH GATE ASSEMBLER Inhaled Oxygen Concentration - - Weight 118.8 kg (262 lb) 05/02/2024 3:43 PM WIRE MESH GATE ASSEMBLER Height 165.1 cm (5' 5 ) 05/02/2024 3:43 PM WIRE MESH GATE ASSEMBLER Body Mass Index 43.6 05/02/2024 3:43 PM WIRE MESH GATE ASSEMBLER Plan of Treatment Health Maintenance Due Date Last Done Comments Albumin Creatinine Ratio, Urine 1949 Colon Cancer Screening-Colonoscopy 1949 Depression Screening 1949 Fall Risk Assessment 1949 Hemoglobin A1C 1949 Hepatitis C Screening 1949 Osteoporosis Screening-Bone Density Scan 1949 eGFR 1949 Dilated Eye Exam 1949 Foot Exam 1949 Hepatitis B Screening 07/16/1967 Zoster Vaccine (1 of 2) 07/16/1999 Well Visit 65+ 2014 Pneumococcal vaccine 65+ (2 of 2 - PCV) 12/10/2015 12/09/2014 DTaP/Tdap/Td Vaccine (2 - Td or Tdap) 02/06/2022 02/07/2012 Covid-19 Vaccine (5 - 2023-2 5 season) 2023 01/12/2021, 07/03/2020, 06/21/2020, Additional history exists Influenza Vaccine (#1) 2023 Breast Cancer Screening-Mammogram 03/09/2024 03/09/2023, 03/09/2023, 03/09/2023, Additional history exists Lipid Panel 07/27/2024 07/28/2023 Procedures Procedure Name Priority Date/Time Associated Diagnosis Comments POCT LIPID PANEL Routine 07/28/2023 10:3 2 AM CDT Hyperlipidemia, unspecified hyperlipidemia type SCREENING MAMMOGRAM BILATERAL W KODI Schedule Routine, Read Routine (OP Routine) 03/09/2023 2:37 PM WIRE MESH GATE ASSEMBLER Screening mammogram, encounter for from Last 3 Months or Most Recently Relevant to Health Maintenance Results * POCT lipid panel (07/28/2023 10:32 AM CDT) Cholesterol, POC <100 mg/dL HDL, POC 34 mg/dL Triglycerides, POC 87 mg/dL LDL Cholesterol POC 47 mg/dL Chol/HDL Ratio, POC N/A Non-HDL Cholesterol, POC N/A mg/dL Cholesterol Total, POC <100 mg/dL Capillary blood 07/28/2023 1 0:32 AM CDT [facility] Leonides Dunn MD POINT OF CARE TEST SARAVANAN CASTANEDA Final Result * Screening Mammogram Bilateral W Kodi (03/09/2023 2:37 PM WIRE MESH GATE ASSEMBLER) Anatomical Region Laterality Modality Breast Bilateral Mammography 03/09/2023 5:17 PM WIRE MESH GATE ASSEMBLER Impressions 03/09/2023 5:17 PM WIRE MESH GATE ASSEMBLER No evidence of malignancy in either breast. FINAL ASSESSMENT: BI-RADS Category 1: Negative. RECOMMENDATION: Recommend return for annual screening mammogram in 12 months. Electronically signed by: Sarah Clark M.D. Narrative 03/09/2023 5:17 PM WIRE MESH GATE ASSEMBLER EXAMINATION: BILATERAL SCREENING MAMMOGRAM COMPARISON: Multiple prior studies, most recently 11/26/2021 and dating back to 08/28/2018. TECHNIQUE: Full-field 2D and digital breast tomosynthesis (DBT) images were obtained. CAD was utilized. BREAST PARENCHYMAL COMPOSITION: There are scattered areas of fibroglandular density. FINDINGS: There is no suspicious mass, calcification, or distortion in either breast. There has been no significant interval change from the prior study. Self Screening Mammogram IMG MAMMO PROCEDURES Fi nal Result from Last 3 Months or Most Recently Relevant to Health Maintenance Insurance [facility] MEDICARE [facility] Care Teams Completions Engineer Relationship Specialty Start Date End Date Rosanne Emerson PA [address] [place] [address] PCP - General Physician Veterinary Surgery Technician 08/25/23
--- OUTSIDE RECORDS SUMMARY | 2024-05-24 15:24 | XMS_ITS | Referral Summary ---
Author Organization [facility] Address [address] [place] [address] Care Team Providers Care Tube Balancer Name Role Phone Rosanne Emerson Primary Care Provider + Encounters Date Type Department Care Team Description 05/02/2024 3:30 PM CARE TRANSPORT NURSE Office Visit [facility] Medical Group Cardiology [address] [place] [address] Mitch Dunn MD Paroxysmal atrial fibrillation (CMS/HCC) (HCC) (Primary Dx); Chronic anticoagulation; Chronic heart failure with preserved ejection fraction (CMS/HCC) (HCC); Lymphedema; Primary hypertension; Mixed hyperlipidemia from Last 3 Months Allergies Active Allergy Reactions Criticality Noted Date [...] daily with breakfast Active miscellaneous medical supply misc 1 Units as needed (as directed by [...] heart failure with p reserved ejection fraction ([facility]) 05/02/2024 Lymphedema 05/02/2024 Syncope and collapse 11/07/2023 JULIO C (obstructive sleep apnea) 10/16/2023 Atrial fibrillation ([facility]) 07/28/2023 Chronic anticoagulation 07/28/2023 Hyperlipidemia 07/28/2023 Morbid obesity 07/28/2023 Acute sinusitis 07/25/2017 Depressive disorder 07/25/2017 Diabetes mellitus 07/25/2017 Hypertension 07/25/2017 Lesion of tongue 07/25/2017 Serum creatinine raised 07/25/2017 Primary osteoarthritis of left knee 07/05/2016 Social History Tobacco Use Types Packs/Day Years Used Date Smoking Tobacco: Former Smokeless Tobacco: Never Tobacco Cessation:Counseling Given: Not Answered Comments Unknown Sex and Gender Information Value Date Recorded Sex Assigned at Not on file Legal Sex Female 7:43 PM CARE TRANSPORT NURSE Gender Identity Not on file Sexual Orientation Not on file Last Filed Vital Signs Vital Sign Reading Time Taken Comments Blood Pressure 128/56 05/02/2024 3:43 PM CARE TRANSPORT NURSE Pulse 64 05/02/2024 3:43 PM CARE TRANSPORT NURSE Temperature - - Respiratory Rate - - Oxygen Saturation 96% 05/02/2024 3:43 PM CARE TRANSPORT NURSE Inhaled Oxygen Concentration - - Weight 118.8 kg (262 lb) 05/02/2024 3:43 PM CARE TRANSPORT NURSE Height 165.1 cm (5' 5 ) 05/02/2024 3:43 PM CARE TRANSPORT NURSE Body Mass Index 43.6 05/02/2024 3:43 PM CARE TRANSPORT NURSE Plan of Treatment Not on file Procedures Procedure Name Priority Date/Time Associated Diagnosis Comments POCT LIPID PANEL Routine 07/28/2023 10:3 2 AM CDT Hyperlipidemia, unspecified hyperlipidemia type SCREENING MAMMOGRAM BILATERAL W KODI Schedule Routine, Read Routine (OP Routine) 03/09/2023 2:37 PM CARE TRANSPORT NURSE Screening mammogram, encounter for from Last 3 Months or Most Recently Relevant to Health Maintenance Results * POCT lipid panel (07/28/2023 10:32 AM CDT) Cholesterol, POC <100 mg/dL HDL, POC 34 mg/dL Triglycerides, POC 87 mg/dL LDL Cholesterol POC 47 mg/dL Chol/HDL Ratio, POC N/A Non-HDL Cholesterol, POC N/A mg/dL Cholesterol Total, POC <100 mg/dL Capillary blood 07/28/2023 1 0:32 AM CDT [facility] Leonides Dunn MD POINT OF CARE TEST SARAVANAN CASTANEDA Final Result * Screening Mammogram Bilateral W Kodi (03/09/2023 2:37 PM CARE TRANSPORT NURSE) Anatomical Region Laterality Modality Breast Bilateral Mammography 03/09/2023 5:17 PM CARE TRANSPORT NURSE Impressions 03/09/2023 5:17 PM CARE TRANSPORT NURSE No evidence of malignancy in either breast. FINAL ASSESSMENT: BI-RADS Category 1: Negative. RECOMMENDATION: Recommend return for annual screening mammogram in 12 months. Electronically signed by: Sarah Clark M.D. Narrative 03/09/2023 5:17 PM CARE TRANSPORT NURSE EXAMINATION: BILATERAL SCREENING MAMMOGRAM COMPARISON: Multiple prior studies, most recently 11/26/2021 and dating back to 08/28/2018. TECHNIQUE: Full-field 2D and digital breast tomosynthesis (DBT) images were obtained. CAD was utilized. BREAST PARENCHYMAL COMPOSITION: There are scattered areas of fibroglandular density. FINDINGS: There is no suspicious mass, calcification, or distortion in either breast. There has been no significant interval change from the prior study. us Self Screening Mammogram IMG MAMMO PROCEDURES Fi nal Result from Last 3 Months or Most Recently Relevant to Health Maintenance Insurance [facility] MEDICARE [employer] Care Teams Tube Balancer Relationship Specialty Start Date End Date Rosanne Emerson PA [address] [place] [id number] PCP - General Physician Product Development Consultant 08/25/23
--- OUTSIDE RECORDS SUMMARY | 2024-05-24 15:24 | XMS_ITS | Encounter Summary ---
Author Organization [facility] Address [address] [place] [address] Care Team Providers Care Snipper Name Role Phone Unavailable Primary Care Provider Unavailabl e Encounter Details Date Type Department Care Team (Late st Contact Info) Description 03/13/2017 Lab Requisition [facility] S [facility] [address] [place] [address] Zain Smith MD [address] [place], [place] [id number] Encounter for general adult medical examination without abnormal findings Social History Tobacco Use Types Packs/Day Years [...] st Contact Info) Description 05/27/2024 2:00 PM MANUFACTURING INDUSTRIAL ENGINEER Office Visit [facility] Oncology and Hematology - [place] [address] [facility] [address] [place] [address] Gurjit Ayala MD [address] [facility] [address] [place] [address] documented as of this encounter Procedures Procedure Name Priority Date/Time Associated Diagnosis Comments CBC WITH DIFFERENTIAL Routine 03/13/2017 7:28 AM MANUFACTURING INDUSTRIAL ENGINEER Encounter for general adult medical examination without abnormal findings PTT Routine 03/13/2017 7:28 AM MANUFACTURING INDUSTRIAL ENGINEER Encounter for general adult medical examination without abnormal findings PROTIME-INR Routine 03/13/2017 7:28 AM MANUFACTURING INDUSTRIAL ENGINEER Encounter for general adult medical examination without abnormal findings HEMOGLOBIN A1C Routine 03/13/2017 7:28 AM MANUFACTURING INDUSTRIAL ENGINEER Encounter for general adult medical examination without abnormal findings documented in this encounter Results * PTT (03/13/2017 7:28 AM MANUFACTURING INDUSTRIAL ENGINEER) PTT 33.4 24.4 - 36.4 seconds 03/13/2017 10:58 AM MANUFACTURING INDUSTRIAL ENGINEER [facility] [employer] [facility] Comment: PTT Therapeutic Range: Heparin Level PTT (seconds) <0.10 units/mL <53 0.10 - 0.30 units/mL 53 - 67 0.30 - 0.70 units/mL* 67 - 95* 0.70 - 1.00 units/mL 95 - 116 *corresponds to therapeutic range for unfractionated heparin Blood Venipuncture / Unknown 03/13/2017 7:28 AM MANUFACTURING INDUSTRIAL ENGINEER 03/13/2017 9:18 AM MANUFACTURING INDUSTRIAL ENGINEER Zain Smith MD HEMATOLOGY ORDERABLES Final Result [facility]# [id number] [address] [place] [address] * PROTIME-INR (03/13/2017 7:28 AM MANUFACTURING INDUSTRIAL ENGINEER) PROTIME 13.4 12.7 - 15.1 Seconds 03/13/2017 10:58 AM MANUFACTURING INDUSTRIAL ENGINEER [facility] [employer] [facility] INR 1.0 0.9 - 1.1 03/13/2017 10:58 AM [facility] [employer] [facility] Blood Venipuncture / Unknown 03/13/2017 7:28 AM MANUFACTURING INDUSTRIAL ENGINEER 03/13/2017 9:18 AM MANUFACTURING INDUSTRIAL ENGINEER Narrative [facility] [employer] [facility] - 03/13/2017 10:58 AM MANUFACTURING INDUSTRIAL ENGINEER INR Therapeutic Range: Adult: 2.0 - 3.0 for pulmonary embolism or prophylaxis against venous thrombosis or systemic embolization. 2.0 - 3.0 for patients with tissue heart valves. 2.5 - 3.5 for patients with mechanical heart valves or post LA. Pediatric (12 years and under): 1.5 - 3.0 Although the target range in children is not well established, INR values of 1.5 - 3.0 are recommended for most patients. Higher values have been used in children with prosthetic cardiac valves and hereditary clotting disorders. Chauncey (<3 days) therapeutic ranges have not been established. Zain Smith MD HEMATOLOGY ORDERABLES Final Result [facility] - [facility] CLIA# [id number] [address] [place] [address] * (ABNORMAL) CBC WITH DIFFERENTIAL (03/13/2017 7:28 AM MANUFACTURING INDUSTRIAL ENGINEER) WBC 5.0 4.0 - 9.8 K/uL 03/13/2017 10:15 AM [facility] - [facility] RBC 3.28(L) 4.50 - 5.40 M/uL 03/13/2017 10:15 AM [facility] - . [facility] HEMOGLOBIN 9.7(L) 13.6 - 16.5 g/dL 03/13/2017 10:15 AM [facility] - [facility] HEMATOCRIT 30.7(L) 40.0 - 48.0 % 03/13/2017 10:15 AM [facility] - . [facility] MCV 93.6 82.0 - 99.0 fL 03/13/2017 10:15 AM [facility] - . [facility] MCH 29.6 27.2 - 32.6 pg 03/13/2017 10:15 AM [facility] - . [facility] MCHC 31.6 31.5 - 35.5 g/dL 03/13/2017 10:15 AM [employer] [facility] - . [facility] RDW 14.2 11.5 - 14.5 % 03/13/2017 10:15 AM [facility] - . [facility] RDW-STDEV 48.7 37.1 - 48.7 fL 03/13/2017 10:15 AM [facility] - . [facility] PLATELETS 261 140 - 350 K/uL 03/13/2017 10:15 AM MANUFACTURING INDUSTRIAL ENGINEER [facility] [employer] - [facility] MPV 10.0 9.3 - 12.4 fL 03/13/2017 10:15 AM [facility] [facility] - [facility] NEUTROPHILS 33 % 03/13/2017 10:15 AM [facility] [employer] [facility] LYMPHOCYTES 43 % 03/13/2017 10:15 AM [facility] [employer] [facility] MONOCYTES 15 % 03/13/2017 10:15 AM [facility] [employer] [facility] EOSINOPHILS 7 % 03/13/2017 10:15 AM [facility] [employer] [facility] BASOPHILS 0 % 03/13/2017 10:15 AM [facility] [employer] [facility] IMMATURE GRANULOCYTES 2 % 03/13/2017 10:15 AM [facility] [employer] [facility] Comment:IG (Immature Granulo cyte) count includes Metamyelocytes, Myelocytes, and Promyelocytes NEUTROPHIL ABSOLUTE 1.68(L) 1.90 - 7.00 K/uL 03/13/2017 10:15 AM [facility] [employer] [facility] LYMPHOCYTE ABSOLUTE 2.14 0.70 - 4.50 K/uL 03/13/2017 10:15 AM [facility] [employer] [facility] MONOCYTE ABSOLUTE 0.74 0.10 - 1.30 K/uL 03/13/2017 10:15 AM [facility] [employer] [facility] EOSINOPHIL ABSOLUTE 0.35 0.00 - 0.70 K/uL 03/13/2017 10:15 AM [facility] [employer] [facility] BASOPHILS ABSOLUTE 0.02 0.00 - 0.20 K/uL 03/13/2017 10:15 AM [facility] [employer] [facility] IMMATURE GRANULOCYTES ABSOLUTE 0.10(H) 0.00 - 0.03 K/uL 03/13/2017 10:15 AM [facility] [employer] [facility] Blood Venipuncture / Unknown 03/13/2017 7:28 AM [facility] 03/13/2017 9:18 AM [facility] us Zain Smith MD HEMATOLOGY ORDERABLES Final Result [facility] CLIA# [id number] [address] [place] [address] * (ABNORMAL) HEMOGLOBIN A1C (03/13/2017 7:28 AM MANUFACTURING INDUSTRIAL ENGINEER) HEMOGLOBIN A1C 6.3(H) 4.0 - 6.0 % 03/13/2017 10:54 AM MANUFACTURING INDUSTRIAL ENGINEER [facility] EST. AVG GLUCOSE, A1C 134 mg/dL 03/13/2017 10:54 AM MANUFACTURING INDUSTRIAL ENGINEER [facility] Blood Venipuncture / Unknown 03/13/2017 7:28 AM MANUFACTURING INDUSTRIAL ENGINEER 03/13/2017 9:18 AM MANUFACTURING INDUSTRIAL ENGINEER us Zain Smith MD CHEMISTRY ORDERABLES Final R esult [facility]# [id number] [address] [place] [address] documented in this encounter Visit Diagnoses Diagnosis Encounter for general adult medical examination without abnormal findings Routine general medical examination at a health care facility documented in this encounter
--- OUTSIDE RECORDS SUMMARY | 2024-05-24 15:25 | XMS_ITS | Data Portability ---
Author Organization [facility] ALVAREZRoberta Henrry Address [address] [place] [address] Care Team Providers Care Petrography Teacher Name Role Phone TIMMY DAHIANA OTHER SHELBY MACKEY Orthopedic Surgeon PHU GRIFFIN Primary Care Provider [phone] Assessment Encounter Date Assessment Date Assessment LastModified by Organization Details LastModified Time 07/25/2023 07/25/2023 Due to elevated bnp and D dimer in setting of new onset sob and known Afib I have sent patient to ER cardiology appt 07/28/23 nephrology august or september half tablet of sertraline quantum eye exam for July Not available 07/28/2023 06:53:22 Plan of Treatment Reminders Order Date Submit Date Provider Last Modified By Organization Details Last Modified Time Details Appointments ANY 15 2024 02:00P M SUSHIL PAULSON Not available Not available Not available Lab HbA1c (hemoglob in A1c), blood 2024 025 [facility] In-Office Order, Internal Use Only DO Not Attach Compendium DO Not Attach Compendium, Do Not Delete/merge, [id number] 04/04/2024 13:02:46 HbA1c (hemoglob in A1c), blood 2023 024 [facility] In-Office Order, Internal Use Only DO Not Attach Compendium DO Not Attach Compendium, Do Not Delete/merge, [id number] 12/12/2023 17:38:42 D-dimer, quant, plasma 2023 024 [facility], [address], [address], [place], [address], 07/26/2023 11:16:23 pro BNP (pro B-type natriuret ic peptide), serum or plasma 2023 024 [facility], [address], [address], [place], [address], 07/26/2023 08:29:04 Referral physical therapist referral 2023 024 [place] [address] [employer], [address], [place], [address], 09/06/2023 17:06:08 wound care referral 2023 024 [facility], [address] [place], [address], 09/08/2023 12:14:33 Procedures None recorded. Surgeries None recorded. Imaging US, duplex, venous, lower extremity 2023 024 [facility], [address], [place], [address], 09/28/2023 16:00:21 Medication Orders Ozempic 0.25 mg or 0.5 mg (2 mg/1.5 mL) subcutane ous pen injector 2024 025 [facility][id number], [address] [place], [address], 04/04/2024 11:02:18 lisinopri l 5 mg tablet 2023 024 [facility] #[id number], [address] [place], [address], 12/12/2023 16:23:54 Patient TargetsNo targets recorded. Patient Instructions Encounter Date Encounter Id Patient Instructions Last Modified By Organization Details Last Modified Time 07/25/2023 [id number] A healthy lifestyle: care [email or web address] Not available 07/28/2023 06:53:31 09/06/2023 [id number] A healthy lifestyle: care instructions Not available 09/06/2023 17:05:58 12/12/2023 [id number] A healthy lifestyle: care instructions Not available 12/13/2023 12:38:35 04/04/2024 [id number] A healthy lifestyle: care instructions Not available 04/04/2024 10:45:48 Reason for Referral Physical Therapist Referral for Poor balance Referring Physician: Phu Griffin, Embedded Systems Designer, Encounter Date: 09/06/2023 Referring Physician: Phu hernandez, Embedded Systems Designer, Encounter Date: 09/06/2023 Results Created Date Observation Date Name Description Value Unit Range Abnormal Flag Note LastModifiedBy Organization Detail LastModifiedTime 07/25/19 24 07/26/2023 NT-OK OBNP nt-probnp 8983 pg/mL 0-301 above high normal The jay hallman cut-p oints have been sugge sted for the use of proBN P for the diagn ostic evalu ation of heart failu re (HF) in patie nts with acute dyspn ea: Modal ity Age Optim al Cut (year s) Point ----- ----- ----- ----- ----- ----- ----- ----- ----- ----- ---- Diagn osis (rule in HF) <50 450 pg/mL 50 - 75 900 pg/mL >75 1800 pg/mL Exclu nikita (rule out HF) Age indep enden t 300 pg/mL Not Available [facility] ([facility]) [address], [place], [address], 07/26/2023 08:29:04 07/25/19 24 07/26/2023 D-DIM ER D-dimer 0.66 mg/L_ feu 0.00-0 .49 above high normal Accor ding to the assay manuf actur er's publi shed packa ge inser t, a robbi l (<0.5 0 mg/L FEU) D-dim er resul t in conju nctio n with a non-h igh clini param proba bilit y asses sment , exclu marli deep vein throm bosis (DVT) and pulmo nary embol ism (PE) with high sensi tivit y. D-dim er value s incre ase with age and this can make VTE exclu nikita of an older popul ation diffi cult. To addre ss this, the Ameri can Colle ge of Physi cians , based on best avail able evide nce and recen t guide lines , recom mends that clini cians use age-a djust ed D-dim er thres holds in patie nts great er than 50 years of age with: a) a low proba bilit y of PE who do not meet all Pulmo nary Embol ism Rule Out Crite abbe, or b) in those with inter media te proba bilit y of PE. The formu la for an age-a djust ed D-dim er cut-o ff is age/ 100 . For examp le, a 60 year old patie nt would have an age-a djust ed cut-o ff of 0.60 mg/L FEU and an 80 year old 0.80 mg/L FEU. Not Available [facility] ([facility]) [address], [place], [address], 07/26/2023 11:16:23 10/13/1910/14/2023 IRON AND TIBC iron bind.cap.(TI BC) 370 ug/dL 250-45 0 Not Available [facility] ([facility]) [address] [place], [address], 10/14/2023 10:21:33 10/13/19 24 10/14/2023 IRON AND TIBC UIBC 346 ug/dL 118-36 9 Not Available [facility] ([facility]) [address] [place], [address], 10/14/2023 10:21:33 10/13/19 24 10/14/2023 IRON AND TIBC iron 24 ug/dL 27-139 below low normal Not Available [facility] ([facility]) [address] [place], [address], 10/14/2023 10:21:33 10/13/19 24 10/14/2023 IRON AND TIBC iron saturation 6 % 15-55 alert low Not Available [facility] ([facility]) [address] [place], [address], 10/14/2023 10:21:33 10/13/19 24 10/14/2023 JAMES TIN ferritin 32 NG/mL 15-150 Not Available [facility] ([facility]) [address] [place], [address], 10/14/2023 10:21:34 10/13/19 24 10/14/2023 CBC WITH DIFFE RENTI AL/PL ATELE T WBC 7.2 x10e3 /uL 3.4-10 .8 Not Available [facility] ([facility]) [address] [place], [address], 10/14/2023 10:21:34 10/13/19 24 10/14/2023 CBC WITH DIFFE RENTI AL/PL ATELE T RBC 3.79 x10e6 /uL 3.77-5 .28 Not Available [facility] ([facility]) [address] [place], [address], 10/14/2023 10:21:34 10/13/19 24 10/14/2023 CBC WITH DIFFE RENTI AL/PL ATELE T hemoglobin 9.4 g/dL 11.1-1 5.9 below low normal Not Available [facility] ([facility]) [address] [place], [address], 10/14/2023 10:21:34 10/13/19 24 10/14/2023 CBC WITH DIFFE RENTI AL/PL ATELE T hematocrit 32.0 % 34.0-4 6.6 below low normal Not Available [facility] ([facility]) [address], [place], [address], 10/14/2023 10:21:34 10/13/19 24 10/14/2023 CBC WITH DIFFE RENTI AL/PL ATELE T MCV 84 fL 79-97 Not Available [facility] ([facility]) [address], [place], [address], 10/14/2023 10:21:34 10/13/19 24 10/14/2023 CBC WITH DIFFE RENTI AL/PL ATELE T MCH 24.8 pg 26.6-3 3.0 below low normal Not Available [facility] ([facility]) [address], [place], [address], 10/14/2023 10:21:34 10/13/19 24 10/14/2023 CBC WITH DIFFE RENTI AL/PL ATELE T MCHC 29.4 g/dL 31.5-3 5.7 below low normal Not Available [facility] ([facility]) [address] [place], [address], 10/14/2023 10:21:34 10/13/19 24 10/14/2023 CBC WITH DIFFE RENTI AL/PL ATELE T RDW 15.2 % 11.7-1 5.4 Not Available [facility] ([facility]) [address] [place], [address], 10/14/2023 10:21:34 10/13/19 24 10/14/2023 CBC WITH DIFFE RENTI AL/PL ATELE T platelets 300 x10e3 /uL 150-45 0 Not Available [facility] ([facility]) [address], [place], [address], 10/14/2023 10:21:34 10/13/19 24 10/14/2023 CBC WITH DIFFE RENTI AL/PL ATELE T neutrophils 47 % notest ab. Not Available [facility] ([facility]) [address], [place], [address], 10/14/2023 10:21:34 10/13/19 24 10/14/2023 CBC WITH DIFFE RENTI AL/PL ATELE T lymphs 39 % notest ab. Not Available [facility] ([facility]) [address], [place], [address], 10/14/2023 10:21:34 10/13/19 24 10/14/2023 CBC WITH DIFFE RENTI AL/PL ATELE T monocytes 8 % notest ab. Not Available [facility] ([facility]) [address], [place], [address], 10/14/2023 10:21:34 10/13/19 24 10/14/2023 CBC WITH DIFFE RENTI AL/PL ATELE T eos 5 % notest ab. Not Available [facility] ([facility]) [address], [place], [address], 10/14/2023 10:21:34 10/13/19 24 10/14/2023 CBC WITH DIFFE RENTI AL/PL ATELE T basos 1 % notest ab. Not Available [facility] ([facility]) [address], [place], [address], 10/14/2023 10:21:34 10/13/19 24 10/14/2023 CBC WITH DIFFE RENTI AL/PL ATELE T neutrophils (absolute) 3.4 x10e3 /uL 1.4-7. 0 Not Available [facility] ([facility]) [address], [place], [address], 10/14/2023 10:21:34 10/13/19 24 10/14/2023 CBC WITH DIFFE RENTI AL/PL ATELE T lymphs (absolute) 2.8 x10e3 /uL 0.7-3. 1 Not Available [facility] ([facility]) [address], [place], [address], 10/14/2023 10:21:34 10/13/19 24 10/14/2023 CBC WITH DIFFE RENTI AL/PL ATELE T monocytes(ab solute) 0.6 x10e3 /uL 0.1-0. 9 Not Available [facility] ([facility]) [address], [place], [address], 10/14/2023 10:21:34 10/13/19 24 10/14/2023 CBC WITH DIFFE RENTI AL/PL ATELE T eos (absolute) 0.3 x10e3 /uL 0.0-0. 4 Not Available [facility] ([facility]) [address], [place], [address], 10/14/2023 10:21:34 10/13/19 24 10/14/2023 CBC WITH DIFFE RENTI AL/PL ATELE T baso (absolute) 0.1 x10e3 /uL 0.0-0. 2 Not Available [facility] ([facility]) [address], [place], [address], 10/14/2023 10:21:34 10/13/19 24 10/14/2023 CBC WITH DIFFE RENTI AL/PL ATELE T immature granulocytes 0 % notest ab. Not Available [facility] ([facility]) [address], [place], [address], 10/14/2023 10:21:34 10/13/19 24 10/14/2023 CBC WITH DIFFE RENTI AL/PL ATELE T immature grans (abs) 0.0 x10e3 /uL 0.0-0. 1 Not Available [facility] ([facility]) [address], [place], [address], 10/14/2023 10:21:34 12/12/19 24 12/12/2023 HbA1c (hemo globi n A1c), blood HbA1c 5.9 Not Available In-Office Order Internal Use Only DO Not Attach Compendium DO Not Attach Compendium, Do Not Delete/merge, [id number] 12/12/2023 16:30:10 04/04/19 25 04/04/2024 HbA1c (hemo globi n A1c), blood HbA1c 6.9% Not Available In-Office Order Internal Use Only DO Not Attach Compendium DO Not Attach Compendium, Do Not Delete/merge, [id number] 04/04/2024 11:02:30 09/28/19 24 09/28/2023 US, duple x, venou s, lower extre mity No observ ation record ed. [address] [facility], [place], [address], 10/03/2023 13:12:40 09/28/19 24 09/28/2023 US, duple x, venou s, lower extre mity No observ ation record ed. [address], [place], [address], 10/03/2023 13:12:40 Result Notes None recorded. Problems Name Problem SNOMED Code Status Onset Date Resolution Date Notes Provider Name and Address Organization Details Recorded Time Chronic kidney disease stage 3 948123661 Active 2018 Nuha Gold MA [facility], [place] - [facility] 9 14:16:49 Diabetes mellitus 20425488 Active NIDDM TYPE II RADHA BONILLA NP Attn: Nicole fisher,[address] [place], [address], [place] [facility] 8 14:39:52 Essential hypertens ion 15204163 Active RADHA BONILLA NP Attn: Nicole fisher,[address] [facility], [place], [address], [place] [facility] 8 14:39:52 Atrial fibrillat ion 83104082 Active 2023 SUSHIL PAULSON Attn: Nicole fisher,[address] [place], [address], [place] [facility] 4 15:28:30 Morbid obesity 850988238 Active 2023 SUSHIL PAULSON Attn: Accountin g,[address] [facility], [place], [address], [place] [facility] 4 06:53:43 Tachycard ia 7001093 Active 2023 SUSHIL PAULSON Attn: Accountin g,[address] [facility], [place], [address], [place] [facility] 4 06:54:15 Venous stasis ulcer with edema of right lower leg [id number] 04755 Active 2023 SUSHIL PAULSON Attn: Accountin g,[address] [facility], [place], [address], [place] [facility] 4 08:31:12 Poor balance 295991138 Active 2023 SUSHIL PAULSON Attn: Accountin g,[address] [facility], [place], [address], [place] [facility] 4 08:31:13 Hyperlipi demia 75429364 Active 2023 SUSHIL PAULSON Attn: Accountin g,[address] [facility], [place], [address], [place] [facility] 4 08:31:16 Orthostat ic hypotensi on 67787371 Active 2023 SUSHIL PAULSON Attn: Accountin g,[address] [facility], [place], [address], [place] [facility] 4 12:38:10 Obesity 560963979 Active 2023 SUSHIL PAULSON Attn: Accountin g,[address] [facility], [place], [address], [place] [facility] 4 12:38:44 Lesion of tongue 796525620 Completed 10/17/2019 FIONA MATTSON Attn: Accountin g,[address] [facility], [place], [address], [place] [facility] 0 17:33:41 Acute sinusitis 88471810 Completed 01/02/2019 FIONA MATTSON Attn: Nicole fisher,[address] [facility], [place], [address], [place] [facility] 9 12:25:34 Depressiv e disorder 19669746 Active RADHA BONILLA NP Attn: Nicole fisher,[address] [facility], [place], [address], [place] [facility] 8 14:39:52 Purpuric rash 601021405 Completed 07/09/2019 FIONA MATTSON Attn: Nicole fisher,[address] [facility], [place], [address], [place] [facility] 0 11:18:09 Pain in left knee Active RADHA BONILLA NP Attn: Nicole fisher,[address] [facility], [place], [address], [place] [facility] 8 14:39:52 Serum creatinin e above reference range 067404752 Completed 07/09/2019 FIONA MATTSON Attn: Nicole fisher,[address] [facility], [place], [address], [place] [facility] 0 11:18:07 Problem Notes None recorded. Procedures Surgical History Date Name Laterality Status Provider Name and Address Organization Details Recorded Time 3 Date of Last Mammogram completed Olivia [place] [facility] 05/10/2023 14:38:56 7 Knee [place] Nuha [place] [facility] 07/11/2016 09:16:30 Other completed [place] [facility] 12/16/2015 11:34:10 Other completed Nu[place] [facility] 12/16/2015 11:34:10 Breast [place] Nuha [place] [facility] 12/16/2015 11:34:10 Imaging Results Imaging Date Name Status LastModified by [facility] Details LastModified Time 09/28/2023 US, duplex, venous, lower extremity completed [facility] [address], [place], [address], 10/03/2023 13:12:40 09/28/2023 US, duplex, venous, lower extremity completed [facility] [address], [place], [address], 10/03/2023 13:12:40 Procedure Notes None recorded. Medical Equipment None Reported. Allergies No known drug allergies Medications Name Sig Start Date Stop Date Status Note LastModified by Organization Details LastModified Time Prescript ion - New 08/02 completed Not Available Not Available Not Available pioglitaz one 15 mg tablet TAKE 1 TABLET BY MOUTH EVERY DAY DIRECTED active Not Available Not Available No t Available atorvasta tin 40 mg tablet Take 1 tablet every day by oral route. 2024 active Not Available Not Available Not Avai lable Augmentin 875 mg-125 mg tablet Take 1 tablet every 12 hours by oral route for 10 days. 05/21 completed Not Available Not Available Not Available prednison e 10 mg tablet Take 1 tablet every day by oral route for 7 days. 01/10 completed Not Available Not Available Not Available cetirizin e 10 mg tablet TAKE ONE TABLET BY MOUTH ONCE DAILY 05/22 completed Not Available Not Available Not Available ibuprofen 800 mg tablet TAKE 1 TABLET BY MOUTH THREE TIMES A DAY NEEDED 01/10 completed Not Available Not Available Not Available hydrocodo ne 5 mg-acetam inophen 325 mg tablet 08/02 completed Not Available Not Available Not Available glipizide 10 mg tablet TAKE 2 TABLETS BY MOUTH EVERY DAY DIRECTED active Not Available Not Available No t Available prednison e 20 mg tablet 2 tabs daily x 5 days, 1 tab daily x 5 day. 12/08 completed Not Available Not Available Not Available sertralin e 100 mg tablet Take 1 tablet every day by oral route for 30 days. 11/07 completed Not Available Not Available Not Available metformin 850 mg tablet TAKE 2 TABLETS BY MOUTH EVERY DAY active Not Available Not Available No t Available sulfameth oxazole 800 mg-trimet hoprim 160 mg tablet 07/06 completed Not Available Not Available Not Available ketorolac 10 mg tablet Take 1 tablet every 6 hours by oral route for 5 days. 2015 active Not Available Not Available Not Avai lable amoxicill in 875 mg tablet Take 1 tablet twice a day by oral route for 10 days. 05/22 completed Not Available Not Available Not Available triamcino lone acetonide 0.1 % dental paste use as directed BID 07/07 completed Not Available Not Available Not Available metformin 1,000 mg tablet Take 1 tablet twice a day by oral route. 12/30 completed Not Available Not Available Not Available lisinopri l 10 mg tablet TAKE 1 TABLET BY MOUTH EVERY DAY DIRECTED active Not Available Not Available No t Available sertralin e 25 mg tablet TAKE 1 TABLET BY MOUTH EVERY DAY (TAKE WITH 100 MG TABLET) active Not Available Not Available No t Available diclofena c sodium 75 mg tablet,de layed release TAKE ONE TABLET BY MOUTH TWICE DAILY active Not Available Not Available No t Available lisinopri l 5 mg tablet TAKE 1 TABLET BY MOUTH EVERY DAY active Not Available Not Available No t Available hydrochlo rothiazid e 25 mg tablet TAKE 1 TABLET BY MOUTH EVERY DAY NEEDED FOR EDEMA 12/11 completed Not Available Not Available Not Available furosemid e 20 mg tablet Take 1 tablet every day by oral route for 90 days. active takes as needed Not Available Not Available Not Available fluticaso ne propionat e 50 mcg/actua tion nasal spray,luann pension [place] 2 sprays every day by intranas al route. 05/22 completed Not Available Not Available Not Available sertralin e 50 mg tablet TAKE 1 TABLET BY MOUTH EVERY DAY 2024 active Not Available Not Available Not Avai lable rosuvasta tin 20 mg tablet TAKE 1 TABLET BY MOUTH EVERYDAY AT BEDTIME 08/31 completed Not Available Not Available Not Available Crestor 5 mg tablet TAKE ONE TABLET BY MOUTH ONCE DAILY 07/29 completed Not Available Not Available Not Available Klor-Con M20 mEq tablet,ex tended release active Not Available Not Available Not Available bupropion HCl XL 150 mg 24 hr tablet, extended release Take 1 tablet every day by oral route. 06/07 completed Not Available Not Available Not Available metoprolo l tartrate 25 mg tablet TAKE 1 TABLET TWICE A DAY BY ORAL ROUTE FOR 90 DAYS. 2023 active Not Available Not Available Not Avai lable Pain Relief Extra Strength (acetamin ophen) 500 mg tablet TAKE 2 TABLETS BY MOUTH EVERY 6-8 HOURS 07/08 completed Not Available Not Available Not Available chlorhexi dine gluconate 0.12 % mouthwash use as direscte d daily 07/07 completed Not Available Not Available Not Available Crestor 05/21 completed Not Available Not Available Not Available Januvia 25 mg tablet 06/07 completed Not Available Not Available Not Available Januvia 100 mg tablet TAKE ONE TABLET BY MOUTH EVERY DAY DIRECTED 10/11 completed Not covered by 340b Not Available Not Available Not Available Januvia active Not Available Not Avail able Not Available Tradjenta 5 mg tablet TAKE ONE TABLET BY MOUTH DAILY 12/20 completed Not Available Not Available Not Available Xarelto 20 mg tablet one tablet everyday in the evening with meal 2023 active Not Available Not Available Not Avai lable Eliquis 5 mg tablet TAKE 1 TABLET BY MOUTH TWICE A DAY 05/16 completed Not Available Not Available Not Available Nesina 25 mg tablet TAKE ONE TABLET BY MOUTH DAILY 01/12 completed Patient never took Not Available Not Available Not Available Jardiance 10 mg tablet TAKE 1 TABLET BY MOUTH EVERY DAY active Not Available Not Available No t Available Ozempic 0.25 mg or 0.5 mg (2 mg/1.5 mL) subcutane ous pen injector Inject 0.25 mg every week by subcutan eous route. 2024 active Not Available Not Available Not Avai lable Ozempic 0.25 mg or 0.5 mg (2 mg/3 mL) subcutane ous pen injector 12/11 completed Not Available Not Available Not Available Vitals Date Recorded Body height Body mass index (BMI) Body weight Heart rate Oxygen saturation Oxygen saturation in Arterial blood by Pulse oximetry Systolic blood pressure Diastolic blood pressure Provider Name and Address Organization Details Last Updated DateTime 4 165.1 cm 45.6 kg/m2 366669. 31 g 121 /min 98 % 98 % 101 mm[Hg] 66 mm[Hg] Olivia Francisco [facility] 4 12:13:49 Date Recorded Body height Body mass index (BMI) Body weight Oxygen saturation Oxygen saturation in Arterial blood by Pulse oximetry Systolic blood pressure Diastolic blood pressure Provider Name and Address Organization Details Last Updated DateTime 4 165.1 cm 45.8 kg/m2 751982. 7 g 98 % 98 % 94 mm[Hg] 60 mm[Hg] Olivia Sanchezarza [facility] 4 16:27:39 Date Recorded Heart rate Provider Name an d Address Organization Details Last Updated DateTime 09/06/2023 110 /min Sylvester PAULSON Attn: Accounting,[address] [place], [address], [facility] 09/07/2023 08:47:57 Date Recorded Body height Body mass index (BMI) Body weight Heart rate Oxygen saturation Oxygen saturation in Arterial blood by Pulse oximetry Respiratory rate Systolic blood pressure Diastolic blood pressure Provider Name and Address Organization Details Last Updated DateTime 4 165.1 cm 39.8 kg/m2 582716. 58 g 72 /min 97 % 97 % 14 /min 89 mm[Hg] 58 mm[Hg] SUSHIL PAULSON Attn: Nicole g,[address] [place], [address], [facility] 4 12:37:41 Date Recorded Body height Body mass index (BMI) Body weight Heart rate Respiratory rate Oxygen saturation Oxygen saturation in Arterial blood by Pulse oximetry Systolic blood pressure Diastolic blood pressure Provider Name and Address Organization Details Last Updated DateTime 5 165.1 cm 43.3 kg/m2 455738. 02 g 67 /min 18 /min 95 % 95 % 98 mm[Hg] 65 mm[Hg] Francisca Stone MA [facility] 5 10:43:19 Social History Question Answer Notes LastModified by Organizat ion Details LastModified Time Tobacco Smoking Status Former Smoker Stopped when 24 yrs old JACKELINE Conrad, [facility] 07/13/2020 15:23:56 What Is Your Level Of Alcohol Consumption? Occasional [email or web address] Information not available 05/21/2014 Hard Of Hearing Or Deaf In One Or Both Ears? No Information not available 12/16/2015 Legally Blind In One Or Both Eyes? No Information not available 12/16/2015 Live Alone Or With Others? Alone Information not available 12/16/2015 What Was The Date Of Your Most Recent Tobacco Screening? 04/04/2024 [email or web address] Information not available 04/04/2024 How Many Children Do You Have? 0 Information not available 12/16/2015 Has Tobacco Cessation Counseling Been Provided? Yes Information not available 05/10/2023 On What Date Was Tobacco Cessation Counseling Provided? 04/04/2024 [email or web address] Information not available 04/04/2024 Sex: Unknown Functional Status Question Answer Note LastModified by Organization D etails LastModified Time Are you able to care for yourself? Yes Information n ot available 12/16/2015 Mental Status None recorded. Family History Relationship Description Onset Age of this Age Resolved Age Notes LastModified by Organization Details LastModified Time Mother Malignant tumor of breast [email or web address] Not available 2015 11:34:11 Mother Parkinson's disease [email or web address] Not available 2015 11:34:11 Medical History Condition Response Diabetes Y High Blood Pressure Y Depression Y High Cholesterol Y Gynecological History Statement/Question Response If Post Menopausal, Age at Menopause Date of Last Pap Smear Date of Last Mammogram 03/03/2023 Obstetrics History GPAL:G 0 P 0 0 0 0 Type Value Living 0 Total 0 Immunizations Vaccine Type Date Status Note Provider Nam e and Address Organization Details Recorded Time COVID-19, mRNA, LNP-S, PF, 30 mcg/0.3 mL dose 1 completed Nuha Gold [place] null, [place] [facility] 01/12/2021 11:58:58 COVID-19, mRNA, LNP-S, PF, 30 mcg/0.3 mL dose 1 completed Nuha Gold [place] [facility] 01/12/2021 11:59:31 COVID-19, mRNA, LNP-S, PF, 30 mcg/0.3 mL dose 1 completed Olivia [place] [facility] 12/26/2023 08:39:13 COVID-19, mRNA, LNP-S, PF, 30 mcg/0.3 mL dose 1 completed Olivia velazco, [facility] 12/26/2023 08:39:13 Tdap 2 completed RADHA BONILLA NP Attn: Accounting,[address] [facility], [place], [address], [facility] - [facility] 07/06/2017 14:40:03 pneumococcal polysaccharide PPV23 5 completed Not Available [facility] 04/20/2019 02:29:46 Pneumococcal conjugate PCV20, polysaccharide ZDO332 conjugate, adjuvant, PF 4 completed SUSHIL PAULSON Attn: Accounting,[address] [facility], [place], [address], [facility] - [facility] 05/16/2023 06:12:24 Past Encounters Encounter ID Performer Location Encounter Start Date Encounter Closed Date Diagnosis/Indication Diagnosis SNOMED-CT Code Diagnosis ICD10 Code Diagnosis Note [id number] [address] [address] 05/21/2014 11:06:56 05/21/2014 11:57:29 Diabetes mellitus [id number] reviewed lab and meds--need s to get better at taking meds discussed stressors- -dealing w/ Essential hypertension 41908277 cont meds-- [id number] [address] [address] 09/02/2014 11:42:37 09/02/2014 12:39:04 Diabetes mellitus 45758351 reviewed lab and meds--no changes--w ork on diet Lesion of tongue [id number] back on Orabase gel try to get nightguard [id number] [address] [address] 12/09/2014 10:38:32 12/09/2014 11:49:07 Diabetes mellitus 35516587 reviewed lab--doing well--cont meds work at exercise needs to try to get better mouth guard--old one rubs against tongue [id number] [facility] [address] [place] [address] 01/15/2015 10:21:35 01/15/2015 10:51:33 Diabetes mellitus 67350196 E11.9 Essential hypertension 97780761 I10 Acute sinusitis 92428327 J01.90 [id number] Bridget Trinidad [facility] [address] [place] [address] 06/16/2015 10:52:02 06/16/2015 14:35:53 Adult health examination 365329172 Z00.01 reviewed lab and meds. encouraged reg exercise-- work up to 150 min /wk Diabetes mellitus 575907 E13.65 reviewed lab--lexus g meds but not doing well w/ diet--revi ewed. no med changes. try to check bs's weekly--st art w/ goal below 200. repeat lab in 3mo Depressive disorder 3548 9007 F33.1 discussed issues--te nds to be a hoarder. believe a lot of it is from depression . declines therapy. will change meds. strategies to deal w/ issues discussed. fu closely Purpuric rash 885009740 D69.2 will treat w/ round of steroids. start zyrtec. be aware that bs's will go up [id number] Bridget Trinidad [address] [address] 09/16/2015 11:39:34 09/16/2015 13:04:36 Depressive disorder 94771941 F33.1 thinks she did better on higher dose of Zoloft--wi ll go back to 100mg; cont wellbutrin . discussed issues--en couraged to take action with issues of hoarding Diabetes mellitus 700215 E13.65 reviewed lab and meds--[place] g a little better w/ wt loss/ diet. cont to work on it--realiz es she is maxed out on present oral meds [id number] Bridget Trinidad [facility] [address] [address] 10/16/2015 11:50:29 10/28/2015 03:47:45 Pain in left knee 9312935677 33721 M25.562 will get xray. stop Ibuprofen- -will give short burst of Toradol. can take Tylenol prn as suppliment . ice Adult heal th examination 331049612 Z00.01 reviewed lab and meds. encouraged reg exercise-- work up to 150 min /wk [id number] Bridget Trinidad [address] [address] 12/16/2015 11:16:53 12/25/2015 09:29:11 Depressive disorder 16529535 F33.1 discussed d/w stressors- -using exercise for diversion Diabetes mellitus 183544 E13.65 reviewed lab and meds--doin g a better. cont working on diet Serum crea tinine above reference range 989664332 R79.89 reviewed lab--creat up, poss b/c of steroids and NSAID's. will plan on repeating in 1 month--no more nsaid's [id number] Bridget Trinidad [address] [address] 01/20/2016 11:24:11 01/20/2016 16:15:38 Serum creatinine above reference range 866692318 R79.89 will repeat lab---cont off meds [id number] Bridget Trinidad [address] [address] 06/07/2016 11:11:39 06/28/2016 12:29:17 Osteoarthritis of knee 047630323 M17.0 ok for surg. needs to try to exercise a bit beofre surg to build up strength and endurance Diabetes mellitus 147067 09 E13.65 reviewed lab and meds--A1c did go up a bit--is not very active--wi ll work at it. check BS's 3 x wkly and call values in after surg--goal [phone] [id number] RADHA BONILLA NP [address] [address] 08/08/2016 15:15:39 08/31/2016 16:04:32 Depressive disorder 04391974 F33.1 - Symptoms worsening - PHQ-9 indicates moderately severe depression - Will increase sertraline - No SI/HI - RTC in 6 months Essential hypertension 65288318 I10 - BP within goal range at 130/60 - No red flag symptoms - Labs ordered - Discussed diet and exercise - RTC in 6 months Diabetes mellitus 999880 09 E13.65 - Will check labs - Continue metformin and glipizide - Samples for Januvia given - will RX, but patient concerned with cost - Needs new meter - Discussed diet and exercise - RTC in 6 months Hyperlipidemia 51335224 E78.5 - Will check labs - Currently taking rosuvastat in - continue same - RTC in 6 months Fatigue 70808223 R53.83 - Likely attributab le to depression , but will check TSH and Vit D Osteoarthr itis of knee 213795910 M17.12 - 5 weeks post-opera tive - Takes Okay PRN for pain per ortho [id number] RADHA BONILLA NP [address] [address] 01/19/2017 14:16:50 01/23/2017 15:36:23 Depressive disorder 96589631 F33.1 - Stable, controlled - Currently takes sertraline 100mg daily - tolerating well - continue same - Discussed healthy ways to deal with stressors - RTC in 6 months Essential hypertension 37104999 I10 - BP within goal range at 120/60 - No red flag symptoms - Labs ordered today - last lab 08/2016 - Currently takes lisinopril 10mg daily - continue same - Discussed diet and exercise regimens - RTC in 6 months with lab prior Diabetes mellitus 204821 09 E11.9 - Last lab 08/2016 - will repeat labs prior to upcoming surgery - Currently taking glipizide 20mg daily, januvia 100mg daily, and metformin 850mg BID - continue same - Takes a daily statin - Encouraged annual eye exam - RTC in 6 months with lab prior Pre-surger y evaluation 271933151 Z01.818 - Right knee replacemen t - Planned for 03/06/[address] Mackey - Patient is an acceptable risk for surgery medically - No form provided for completion - RTC as needed [id number] RADHA BONILLA NP [facility] [address] [place] [address] 07/06/2017 14:17:44 07/13/2017 16:20:24 Adult health examination 396609392 Z00.00 - No pap >65 years - Mammogram ordered today - Bone density referral placed today - Last colonoscop y 08/2014 - Tdap up to date Bladder mu scle dysfunction - overactive 681776588 N32.81 - Sudden urge to void - Discussed conservati ve management vs. medication - Will start with bladder training - May add medication in future - RTC as needed Screening for malignant neoplasm of breast 710771637 Z12.31 - Routine screening mammogram Essential hypertension 59272377 I10 - BP at goal range today at 110/60 - No red flag symptoms - Currently taking lisinopril 10mg daily - continue same - Lab ordered today - RTC in 6 months Diabetes mellitus 091391 09 E11.9 - Lab ordered today - Currently taking glipizide 20mg daily, januvia 100mg daily, and metformin 1700mg once daily - Patient is on a statin and ACEI - Needs monofilame nt exam - Encouraged annual eye exam - patient to schedule - Diet and exercise regimens discussed - RTC in 6 months with lab prior Mixed hyperlipidemia 267 157233 E78.2 - Lab ordered today - Currently takes rosuvastat in 5mg daily - continue same - RTC in 6 months with lab prior Weight gain 6195878 R63. 5 - Will check lab - Likely due to recent poor appetite and lack of activity - Discussed BMI and diet and exercise regimens Screening for osteoporosis 181802192 Z13.820 - Routine screening bone density exam Allergic rhinitis 713436 04 J30.9 - Takes cetirizine daily - continue same - Refilled today Body mass index 40+ - severely obese 395306422 Z68.41 - BMI 44.3 - Diet and exercise regimens discussed - Encouraged avoiding ETOH and poor food choices [id number] GLENN Morgan NP [address] [address] 08/02/2017 10:09:30 08/11/2017 11:13:56 Upper respiratory infection 86284044 J06.9 Rapid strep negative. Start oral antibiotic s and flonase as directed. Saline gargles, ibuprofen, tylenol. F/u prn [id number] Paulina Ruiz MD [address] [address] 05/22/2018 16:23:54 05/29/2018 10:37:21 Diabetes mellitus 51909912 E11.65 Essential hypertension 13456458 I10 Hyperlipidemia 18437247 E78.2 Depressive disorder 3548 9007 F33.9 Lesion of tongue 8961666 05 K14.9 gets canker sores frequently [id number] Paulina Ruiz MD [address] [address] 01/02/2019 12:14:08 01/03/2019 10:09:25 Low back pain 559282140 M54.5 - Advised that area may be SI joint or sciatica- Will send for xray and also steroid- If xray is normal, will send for PT- Advised of stretching - Continue Ibuprofen as needed- Seek immediate care for loss of bowel or bladder- RTC if symptoms worsen or fail to improve [id number] FIONA MATTSON [address] [address] 01/10/2019 15:04:41 01/16/2019 11:59:33 Low back pain 139503774 M54.5 - Advised of stretching and sending for PT- Continue Ibuprofen as needed- Seek immediate care for loss of bowel or bladder- Will call for xray results- RTC if symptoms worsen or fail to improve Abnormal r enal function 01558326 R94.4 - Last CMP showed abnormal renal function- Patient given order to complete in one month Diabetes mellitus 290638 09 E11.9 - Patient stable on Glipizide, Januvia and Metformin- Patient last A1C on 01/03/19 showed well controlled diabetes at 6.8%- Continue medication as prescribed - Will complete foot exam with next visit Essential hypertension 05183570 I10 - Patient stable on Lisinopril - At goal <130/80- Continue as prescribed Depressive disorder 3548 3678 F32.9 - Patient was stable on Sertraline . She reports she has not been taking regularly- She reports she lost a adolfo she was talking to from a heart attack recently and is starting medication again- Denies SI or HI. Seek care for SI or HI- Contact office if medication is not effective Hyperlipidemia 41023544 E78.5 - Patient stable on Rosuvastat in- Continue as prescribed [id number] FIONA MATTSON [address] [address] 07/09/2019 10:11:26 07/12/2019 12:10:22 Depression screening 823145576 Z13.31 - Negative depression screening Chronic ki dney disease stage 3 056788921 N18.3 - Patient saw nephrologi st- Next appointmen t scheduled for September- Patient completed renal ultrasound Depressive disorder 3548 9007 F32.9 - Patient was stable on Sertraline - Denies SI or HI. Seek care for SI or HI- Continue as prescribed Diabetes mellitus 384058 09 E11.9 - Patient stable on Glipizide, Januvia and Metformin- Patient last A1C on 01/03/19 showed well controlled diabetes at 6.8%- Continue medication as prescribed - Will complete foot exam with next visit- Patient will complete labs once COVID-19 clears- Discussed weight loss and diet- Discussed healthy BMI Essential hypertension 04243661 I10 - Patient stable on Lisinopril - Continue as prescribed Hyperlipidemia 24726407 E78.5 - Patient stable on Rosuvastat in- Continue as prescribed [id number] FIONA MATTSON [address] [address] 01/08/2020 10:58:51 01/09/2020 11:44:55 Depressive disorder 68103036 F32.9 - Patient was stable on Sertraline - Denies SI or HI. Seek care for SI or HI- Continue as prescribed Chronic ki dney disease stage 3 137167575 N18.30 - Patient sees nephrologi st Essential hypertension 06551143 I10 - Patient stable on Lisinopril - Continue as prescribed - Denies problems with chest pain, SOB, palpitatio ns, edema or dizziness- BP at goal <130/80 Diabetes mellitus 330406 09 E11.9 - Patient stable on Glipizide, Januvia and Metformin- A1C shows controlled diabetes at 6.2%- Continue medication as prescribed - Foot exam normal today- Micro/albu min urine completed today- Discussed weight loss and diet- Discussed healthy BMI- Patient to schedule diabetes eye exam Hyperlipidemia 61897337 E78.5 - Patient stable on Rosuvastat in- Continue as prescribed - Labs will be completed with next visit Morbid obesity 792267096 E66.01 - Patient is swimming 2-3 days a week at the [facility] [id number] FIONA MATTSON [address] [address] 07/13/2020 15:13:05 07/14/2020 10:10:00 Depressive disorder 42274414 F32.9 - Patient stable on Sertraline - She reports she has trouble with falling and staying asleep - She reports score increased partially due to COVID and her brother being diagnosed with pancreatic cancer - She has not seen her friends in over a year - Discussed participat ing in more activities safely now that things are starting to open - Discussed reaching back out to friends - Continue with swimming weekly - Increasing Sertraline from 100mg to 125mg dosage with a 100mg and 25mg tablet. - She will contact office if she does not notice an improvemen t in symptoms and an appointmen t will be scheduled - Denies SI or HI. Seek care for SI or HI - Continue as prescribed Chronic ki dney disease stage 3 014802734 N18.30 - Patient sees nephrologi st every 6 months Essential hypertension 48649726 I10 - Patient stable on Lisinopril - Continue as prescribed - Denies problems with chest pain, SOB, palpitatio ns, edema or dizziness - BP at goal <130/80 Diabetes mellitus 452210 09 E11.9 - Patient stable on Glipizide, Januvia and Metformin - A1C shows controlled diabetes at 6.9% - Continue medication as prescribed - Foot exam normal today - Micro/albu min urine completed by nephrologi st. Updated copy in chart - Discussed weight loss and diet - Patient to schedule diabetes eye exam Pain in right heel 49250 14199 567496 M79.671 - She reports right heel pain - Exam normal in office today - Has been going on for about 4 months - She denies any injury - Will refer to paper roller Obesity 131410105 E66.9 - Patient has gained 28 pounds since last office visit - Discussed diet and trying to slowly increase activity - She will be starting to mow grass - Continue with swimming - Discussed trying to walk and increase slowly as back allows Hyperlipidemia 54690992 E78.5 - Patient stable on Rosuvastat in - Continue as prescribed - Fasting labs ordered [id number] FIONA MATTSON [facility] [address] [place] [address] 01/12/2021 11:55:09 01/12/2021 19:22:19 Diabetes mellitus 73956533 E11.9 - Patient manages with Glipizide, Januvia, Metformin and Pioglitazo ne- Her A1C is controlled at 6.1%- She is due for eye exam. Discussed scheduling - Foot exam will be completed with next visit- Patient sees a nephrologi st- On GRAAHM inhibitor Essential hypertension 21039113 I10 - Patient manages with Lisinopril - At goal <130/80- Denies problems with chest pain, SOB, palpitatio ns, edema or dizziness Depressive disorder 1348 9008 F32.9 - Patient takes Sertraline as prescribed - She reports she was feeling down so she increased her Sertraline for 150mg- She denies SI or HI- She would like to continue her 150mg for another 4-6 weeks- She will notify office if not effective and we will adjust medication Chronic ki dney disease stage 3 612557414 N18.30 - Patient sees nephrologi st every 6 months Positive s creening for depression on PHQ-9 (Patient Health Questionnaire 9) 2649776780 88194 Z13.89 - Medication adjusted Low back pain 332466434 M54.59 - Patient reports continued low back pain- Previous xray shows severe arthritis- Patient tried PT without relief- Will send to orthopedic doctor Hyperlipidemia 55307495 E78.5 - Patient takes Crestor as prescribed - Last labs were normal Vaccine de clined by patient 3783328066 02 Z28.20 - Patient declines flu and pneumonia vaccines [id number] FIONA MATTSON [address] [address] 07/13/2021 11:46:10 07/14/2021 08:16:52 Essential hypertension 62401543 I10 - Patient manages with Lisinopril - At goal <130/80- Denies problems with chest pain, SOB, palpitatio ns, edema or dizziness Chronic ki dney disease stage 3 094263879 N18.30 - Patient sees nephrologi st every 6 months Diabetes mellitus 119293 09 E11.9 - Patient manages with Glipizide, Januvia, Metformin and Pioglitazo ne- Last A1C was 6.1%. Order given to patient to complete- Eye exam completed this month with normal results. Patient brought paper to office.- Foot exam normal today- Patient sees a nephrologi st- On GRAHAM inhibitor and statin Lumbar spondylosis 74634 0009 M47.896 - Patient reports continued back pain- She reports previous PT did help- Last xray shows spondylosi s- Will order PT again- Discussed possible orthopedic referral if no improvemen t- Discussed how weight loss can improve back pain Hyperlipidemia 24486629 E78.5 - Patient takes Crestor as prescribed - Last labs were normal- Lab order given to patient Morbid obesity 974326169 E66.01 - Discussed swimming again at the [facility]- Explained that reduction in weight can help with back and knee pain Depression screening 171 Z13.31 - Negative depression screening Depressive disorder 3548 9007 F32.9 - Patient takes Sertraline as prescribed - She reports the medicaton is effective- PHQ9 is normal- She denies SI or HI [id number] FIONA MATTSON [address] [address] 01/12/2022 11:44:04 01/14/2022 09:01:17 Depressive disorder 31431016 F32.9 - Patient takes Sertraline as prescribed - PHQ9 is mild- Patient did just lose her only sibling about 8 weeks ago- She denies SI or HI Essential hypertension 70073770 I10 - Patient manages with Lisinopril , but has only been taking every other day due to insurance coverage- At goal <130/80- Denies problems with chest pain, SOB, palpitatio ns, edema or dizziness Diabetes mellitus 755108 09 E11.9 - Patient manages with Glipizide and Metformin, but only taking every other day for the last few months- She has not been taking Pioglitazo ne or Januvia for at least 2 months due to cost and no insurance coverage for medication s- A1C was 6.6% showing controlled diabetes- She has stopped drinking soda and lost 33 pounds since last visit- Patient sees a nephrologi st- On GRAHAM inhibitor and statin Depression screening 171 Z13.31 - Mild. Will repeat with next visit Hyperlipidemia 18273443 E78.5 - Patient takes Crestor as prescribed - She reports her insurance will not cover medication s until April so she has only been taking every other day for the past few months- Fasting labs completed today Obesity 879085519 E66.9 - Lost 33 pounds since last office visit- She has stopped drinking soda and limiting caloric intake [id number] FIONA MATTSON [address] [address] 08/31/2022 11:40:13 08/31/2022 16:52:27 Chronic kidney disease stage 3 217000161 N18.30 - Patient sees nephrologi st every 6 months. She was started on Furosemide Essential hypertension 83669349 I10 - Patient manages with Lisinopril - At goal <130/80- Denies problems with chest pain, SOB, palpitatio ns, edema or dizziness Depression screening 171 210973 Z13.31 - Mild. Will repeat with next visit Diabetes mellitus 761228 09 E11.9 - Patient manages with Glipizide and Metformin and reports compliance - A1C increased from 6.6% to 7.5%- She has lost 12 more pounds since last visit- Will give 3 more months due to continued weight loss- Patient sees a nephrologi st- Foot exam normal- On GRAHAM inhibitor and statin- F/U 3 months Ankle pain 382265673 M25 .579 - She reports pain and rolling of the right ankle- Will send for xray- Discussed possible PT to strengthen the leg Hyperlipidemia 42518121 E78.5 - Manages with Atorvastat in- Had to switch from Rosuvastat in to Atorvastat in due to cost- Will complete fasting labs with next office visit Morbid obesity 831821331 E66.01 - Has lost 12 pounds since last visit Dry skin dermatitis 2600 24655 L85.3 - Noted to bi-lateral lower legs- Advised to try some Vaseline at night- Avoid scratching area to reduce risk of infection- If no relief, can try Triamcinol one [id number] FIONA MATTSON [facility] [address] [place] [address] 11/22/2022 11:40:00 11/22/2022 16:47:33 Diabetes mellitus 43077937 E11.9 - Patient manages with Glipizide and Metformin and reports compliance - A1C decreased from 7.5% to 7.2%- She has lost 6 more pounds since last visit- Patient sees a nephrologi st- Advised to schedule her eye exam- On GRAHAM inhibitor and statin- Discussed increasing Metformin, but she declines at this time. She just purchased a 3 month supply so she would like to wait. She does continue to lose weight and her A1C has decreased since last visit. Advised will give 3 more months and if still elevated, will discuss medication changes- F/U 3 months Obesity 183479076 E66.9 - Lost 6 pounds since last visit [id number] SUSHIL PAULSON [facility] [address] [place] [address] 05/10/2023 14:21:43 05/18/2023 11:16:38 Diabetes mellitus 57898789 E11.9 A1C 7.4% (05/2023) 7.2 (11/2022)Sushil mendez manages with Glipizide and Metformin and reports compliance disucssed starting farxiga and or glp1 for better A1C control and improvemen t with obesity/ki dneysFoot exam: 08/2022Eye Exam: given orderStati n: atorvastat in 20mg , compliance ACEi: Lisinopril , compliance pneumonia vaccine: prevnar 20 05/10/2023 Chronic ki dney disease stage 3 951398336 N18.30 - Patient sees nephrologi st every 6 months. She was started on Furosemide and needs refill. understand s to stop hcz CMP: GFR 37, cr 1.4 Essential hypertension 31512485 I10 - Patient manages with Lisinopril - At goal <130/80- Denies problems with chest pain, SOB, palpitatio ns, edema or dizziness Hyperlipidemia 69248763 E78.5 - Manages with Atorvastat in- Had to switch from Rosuvastat in to Atorvastat in due to cost- Will complete fasting labs with next office visit Morbid obesity 156177020 E66.01 BMI 44.4disucs sed GLP1 today for weight and DM management Depression screening 171 439670 Z13.31 - Mild. Will repeat with next visit Atrial fibrillation 4943 6004 I48.91 Chadvasc score 4. Normal RRR on exmadx in ER 03/2023 sent home on [employer] but not able to afford. On review of ER visit echo w/o abnormalit y. will switch to xarelto. I called wellness and available for $10GFR stable per 03/2023 labswill start xarelto Administra tion of pneumococcal vaccine 91137967 Z23 due for prevnar vaccine [id number] SUSHIL PAULSON [facility] [address] [place] [address] 06/20/2023 15:10:54 06/21/2023 20:34:53 Diabetes mellitus 76927987 E11.9 A1C 7.4% (05/2023) 7.2 (11/2022)Sushil mendez denies fam hx of thyroid cancer, personal hx pancreatit is. Medication side effects were reviewed with patient and include WILVER, pancreatit is, nausea, vomiting, stomach upset. Patient was shown pen and was shown how to clean area, inject pen, and how often to administer .Foot exam: 08/2022Eye Exam: given orderStati n: atorvastat in 20mg , compliance ACEi: Lisinopril , compliance pneumonia vaccine: prevnar 20 05/10/2023 Essential hypertension 33199417 I10 - Patient manages with Lisinopril - At goal <130/80- Denies problems with chest pain, SOB, palpitatio ns, edema or dizziness Atrial fibrillation 4943 6004 I48.91 Chadvasc score 4. Normal RRR on examdoing well on xareltoGFR stable per 03/2023 labswill start xarelto Hyperlipidemia 52065852 E78.5 - Manages with Atorvastat in- Had to switch from Rosuvastat in to Atorvastat in due to cost- Will complete fasting labs with next office visit [id number] SUSHIL PAULSON [facility] [address] [place] [address] 07/25/2023 12:04:25 07/25/2023 13:12:21 Essential hypertension [id number] I10 - Patient manages with Lisinopril - At goal <130/80- Denies problems with chest pain, SOB, palpitatio ns, edema or dizziness Atrial fibrillation 4943 6004 I48.91 Chadvasc score 4. Normal RRR on examdoing well on xareltoGFR stable per 03/2023 labswill start xarelto Hyperlipidemia 70346934 E78.5 - Manages with Atorvastat in- Had to switch from Rosuvastat in to Atorvastat in due to cost- Will complete fasting labs with next office visit Dyspnea on exertion 6084 5006 R06.09 sleeps with 2 pillows under head adn pillow b/w kneesrefus es sleep study Morbid obesity 568461328 E66.01 BMI 45.5 Tachycardia 6283406 R00. 0 did not take metoprolol today [id number] SUSHIL PAULSON [facility] [address] [place] [address] 09/06/2023 16:21:31 09/06/2023 16:57:29 Essential hypertension 19125812 I10 - Patient was taken off Lisinopril - At goal <130/80- Denies problems with chest pain, SOB, palpitatio ns, edema or dizziness Atrial fibrillation 4943 6004 I48.91 Chadvasc score 4. Normal RRR on examdoing well on xareltoGFR stable per 03/2023 labswill start xarelto Hyperlipidemia 13527913 E78.5 - Manages with Atorvastat in- Had to switch from Rosuvastat in to Atorvastat in due to cost- Will complete fasting labs with next office visit Morbid obesity 116370154 E66.01 BMI 45.8 Poor balance 640146404 R 27.8 patient with poor balance that is worsened by lymphedema she was referred to PT Venous sta sis ulcer with edema of right lower leg [id number] L97.919 small bl venous ulcer LE [id number] Francisca Stone MA [facility] [address] [facility] [place] [address] 10/12/2023 15:06:23 10/12/2023 15:15:19 [id number] SUSHIL PAULSON [facility] [address] [facility] [place] [address] 12/12/2023 15:35:02 12/18/2023 09:02:24 Type 2 diabetes mellitus 00437949 E11.9 controlled continue following nephrology continue current medication s Orthostati c hypotension 43894378 I95.1 cut down on lisinopril to 5 mgcontinue half of metoprolol as instructed by cardiology bring in BP log in one weekmainta in adequate fluid intake Obesity 306190899 E66.8 has maintained good weight loss [id number] SUSHIL PAULSON [facility] [address] [place] [address] 04/04/2024 10:39:00 04/04/2024 11:16:47 Diabetes mellitus 54521821 E11.9 Patient denies fam hx of thyroid cancer, personal hx pancreatit is. Medication side effects were reviewed with patient and include WILVER, pancreatit is, nausea, vomiting, stomach upset. Patient was shown pen and was shown how to clean area, inject pen, and how often to administer . medication s: metformin, glipizide, jardiance add on GLP-1A1C 6.9% (04/2024) 7.4% (05/2023) 7.2 (11/2022) Foot exam: 08/2022Eye Exam: given orderStati n: atorvastat in 20mg , good compliance ACEi: Lisinopril , good compliance pneumonia vaccine: prevnar 20 05/10/2023 Obesity 192635597 E66.9 Health Concerns Section Related Observation LastModified by Organization Detai ls LastModified Time None Recorded Concern Status LastModified by Organization Details LastModified Time None Recorded Advance Directives Directive None Recorded Payers Encounter Date Sequence Insurance Name Policy Number Policy Leo Covered Member ID Leo Member ID Guarantor Name 07/25/2023 1 [place] Jocelyn Norman [id number] Jocelyn Norman 09/06/2023 1 [place] Norman [id number] Jocelyn Norman 10/12/2023 1 [place] Joc[place] Norman [id number] Jocelyn Norman 12/12/2023 1 [place] Joc[place] Norman [id number] Jocelyn Norman 12/12/2023 2 [employer] OPTIONS (MEDICARE SUPPLEMENT) Jocelyn Norman [id number] Jocelyn Norman 04/04/2024 1 [place]oc[place] Norman [id number] Jocelyn Norman 04/04/2024 2 [facility] OPTIONS (MEDICARE SUPPLEMENT) Jocelyn Norman [id number] Jocelyn Norman Notes Date Note Type Note Provider Name and Address Organization Details Recorded Time 07/25/2023 text/html Jocelyn is a 73 YO F pmhxz CKD, Obesity class III, DM here for f/u on GLP-1 and c/o of new onset sob She has had new onset dyspnea at rest and on exertion. It took her 4 hours to cut grass that usually takes < 1 hour. She gets palpitations when going up a couple of stairs. She uses to pillows for sleep. For the last month she feel increased sob laying down. states her HR has been elevated. denies pain in either leg and states her legs are always swollen. refuses to wear compression. Denies skipping any doses of xarelto but does skip metoprolol morning dose often. insurance does not cover GLP1 anxiety: She has been doing well on decreased dose of sertraline at 50 mg. SUSHIL PAULSON Attn: Accounting[address] [place], [address], [facility] 07/28/2023 06:55:34 09/06/2023 text/html Jocelyn is a 73 YO F pmhxz CKD, Obesity class III, DM here for f/u with [id number] She went to see cardiology and they gave her a sample of jardiance for HF. She has not started. She was cardioverted and had f/u 08/26/23 with [facility] [employer]MI[employer]. She was taken off lisinopril. She was placed on high dose lasix. She states she cannot tolerate this due to having to pee every hour. I can barely make it to the bathroom. She was referred to PT for lymphedema wrapping in [place], Appointment is pending. 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 Will see Her primer charger is Dr. Brown and she sees him again in September. compression socks at [employer] and will wait sales and distribution clerk to wrap her legs. SUSHIL PAULSON Attn: Accounting[address] [place], [address], [facility] 09/11/2023 08:32:15 12/12/2023 text/html Jocelyn is a 73 YO F pmhxz CKD, Obesity class III, DM here for f/u with [id number] Jocelyn states she saw cardiology and was put back on her lisinopril and was told to cut her metoprolol is half. She has been having episodes of dizziness and on chart review she has had low BP. She has Low BP today as well. She is not taking her lasix, only as needed. Cardiology told her to intake more water. She also saw hematology and has possible infusion coming up. She is attending PT for lymphedema and doing well with wrapping. compression socks at [employer] and will wait sales and distribution clerk to wrap her legs. SUSHIL PAULSON Attn: Accounting[address] [facility], [place], [address], [facility] 12/13/2023 12:39:06 04/04/2024 text/html Jocelyn is a 73 YO F pmhxz CKD, Obesity class III, DM here for f/u for DM for diabetes she would like to restart ozempic to better control her BG. She also thinks it would improve her HF and help with weight loss and maintain heart-healthy diet. Patient denies fam hx of thyroid cancer, personal hx pancreatitis. SUSHIL PAULSON Attn: Accounting[address] [facility], [place], [address], [facility] 04/15/2024 19:23:08 OBGyn Episode No OBEpisode recorded.
[2024-05-24 15:35] LABS: Basophils Absolute Auto 0.1 K/mm3 (0.0-0.1); Basophils Percent Auto 0.7 % (0.2-1.2); Eosinophils Absolute Auto 0.4 K/mm3 (0-0.3); Eosinophils Percent Auto 4.7 % (0-4.4); Hemoglobin 11.9 g/dL (12.0-15.0); Immature Granulocyte Absolute 0.02 K/mm3 (0.00-0.031); Immature Granulocyte Percent A 0.2 % (0-0.5); Lymphocytes Absolute Auto 2.85 K/mm3 (0.9-3.2); Lymphocytes Percent Auto 32.2 % (18.3-44.2); Mean Corpuscular HGB Conc 32.2 g/dl (32-36); Mean Corpuscular Hemoglobin 30.8 pg (26-34); Mean Corpuscular Volume 95.9 fl (80-100); Mean Platelet Volume 9.7 fl (7.4-10.4); Monocytes Absolute Auto 0.8 K/mm3 (0.1-0.6); Monocytes Percent Auto 9.3 % (2.6-8.5); Neutrophils Absolute Auto 4.7 K/mm3 (1.3-6.7); Neutrophils Percent Auto 52.9 % (45.5-73.1); Platelet Count Result 213 k/mm3 (150-375); Red Blood Count 3.86 M/mm3 (4.2-5.4); Red Cell Distribution Width 13.2 % (11.5-14.5); White Blood Count 8.9 K/mm3 (4.5-10.0)
[2024-05-24 16:38] LABS: Anion Gap 8 mmol/L (4-12); Blood Urea Nitrogen 34 mg/dL (7-17); Carbon Dioxide 27 mmol/L (22-30); Chloride 105 mmol/L (98-107); Estimated Glomerular Filt Rate 35; Glucose 173 mg/dL (65-110); Potassium 5.6 mmol/L (3.4-5.0); Sodium 140 mmol/L (137-145)
[2024-05-24 16:52] LABS: Iron 95 ug/dL (37-170)
[2024-05-24 17:10] LABS: Percent Iron Saturation 30 % (20-50)
[2024-05-24 17:45] LABS: Folic Acid > 20.0 ng/mL (2.76->20)
== END 2024-05-24 15:22 | disposition home or self-care (01) ==
LOC: ANHLAB 15:23
PROVIDERS: PCP Physician Assistant; Visit Provider Internal Medicine Hematology & Oncology
DX: D64.9 Anemia, unspecified (principal)
CPT/HCPCS: 36415; 80048; 82607; 82728; 82746; 83540; 83550; 85025

== ENCOUNTER 2024-09-06 14:49 | Outpatient (CLI) | payer MEDICARE, SELFPAY ==
--- OUTSIDE RECORDS SUMMARY | 2024-09-06 14:53 | XMS_ITS | Encounter Summary ---
Author Organization [facility] Address [address] [place] [address] Care Team Providers Care District Court Reporter Name Role Phone Unavailable Primary Care Provider Unavailabl e Encounter Details Date Type Department Care Team (Late st Contact Info) Description 03/13/2017 Lab Requisition [facility] Laboratory Services S [facility] [address] [place] [address] Zain Smith MD [address] [place], [place] [id number] Encounter for general adult medical examination without [...] Care Team (Late st Contact Info) Description 09/26/2024 2:15 PM CDT Office Visit [facility] Oncology and Hematology - [place] [address] [place] [address] Gurjit Ayala MD [address] [facility] [address] [place] [address] documented as of this encounter Procedures Procedure Name Priority Date/Time Associated Diagnosis Comments CBC WITH DIFFERENTIAL Routine 03/13/2017 7:28 AM IVORY POLISHER Encounter for general adult medical examination without abnormal findings PTT Routine 03/13/2017 7:28 AM IVORY POLISHER Encounter for general adult medical examination without abnormal findings PROTIME-INR Routine 03/13/2017 7:28 AM IVORY POLISHER Encounter for general adult medical examination without abnormal findings HEMOGLOBIN A1C Routine 03/13/2017 7:28 AM IVORY POLISHER Encounter for general adult medical examination without abnormal findings documented in this encounter Results * PTT (03/13/2017 7:28 AM IVORY POLISHER) PTT 33.4 24.4 - 36.4 seconds 03/13/2017 10:58 AM IVORY POLISHER [facility] [employer] Comment: PTT Therapeutic Range: Heparin Level PTT (seconds) <0.10 units/mL <53 0.10 - 0.30 units/mL 53 - 67 0.30 - 0.70 units/mL* 67 - 95* 0.70 - 1.00 units/mL 95 - 116 *corresponds to therapeutic range for unfractionated heparin Blood Venipuncture / Unknown 03/13/2017 7:28 AM IVORY POLISHER 03/13/2017 9:18 AM IVORY POLISHER Zain Smith MD HEMATOLOGY ORDERABLES Final Result [facility]# [id number] [address] [place] [address] * PROTIME-INR (03/13/2017 7:28 AM IVORY POLISHER) PROTIME 13.4 12.7 - 15.1 Seconds 03/13/2017 10:58 AM IVORY POLISHER [facility] [employer] INR 1.0 0.9 - 1.1 03/13/2017 10:58 AM [facility] [employer] Blood Venipuncture / Unknown 03/13/2017 7:28 AM IVORY POLISHER 03/13/2017 9:18 AM IVORY POLISHER Narrative [facility] [employer] - 03/13/2017 10:58 AM IVORY POLISHER INR Therapeutic Range: Adult: 2.0 - 3.0 for pulmonary embolism or prophylaxis against venous thrombosis or systemic embolization. 2.0 - 3.0 for patients with tissue heart valves. 2.5 - 3.5 for patients with mechanical heart valves or post AL. Pediatric (12 years and under): 1.5 - 3.0 Although the target range in children is not well established, INR values of 1.5 - 3.0 are recommended for most patients. Higher values have been used in children with prosthetic cardiac valves and hereditary clotting disorders. Caspian (<3 days) therapeutic ranges have not been established. Zain Smith MD HEMATOLOGY ORDERABLES Final Result [facility] LABORATORY SERVICES - [facility] CLIA# [id number] [address] [place] [address] * (ABNORMAL) CBC WITH DIFFERENTIAL (03/13/2017 7:28 AM IVORY POLISHER) WBC 5.0 4.0 - 9.8 K/uL 03/13/2017 10:15 AM [employer] LABORATORY SERVICES - [facility] RBC 3.28(L) 4.50 - 5.40 M/uL 03/13/2017 10:15 AM [employer] LABORATORY SERVICES - . [facility] HEMOGLOBIN 9.7(L) 13.6 - 16.5 g/dL 03/13/2017 10:15 AM [employer] LABORATORY SERVICES - . [facility] HEMATOCRIT 30.7(L) 40.0 - 48.0 % 03/13/2017 10:15 AM [employer] LABORATORY SERVICES - . [facility] MCV 93.6 82.0 - 99.0 fL 03/13/2017 10:15 AM [employer] LABORATORY SERVICES - . [facility] MCH 29.6 27.2 - 32.6 pg 03/13/2017 10:15 AM [employer] LABORATORY SERVICES - . [facility] MCHC 31.6 31.5 - 35.5 g/dL 03/13/2017 10:15 AM [employer] LABORATORY SERVICES - . [facility] RDW 14.2 11.5 - 14.5 % 03/13/2017 10:15 AM [employer] LABORATORY SERVICES - . [facility] RDW-STDEV 48.7 37.1 - 48.7 fL 03/13/2017 10:15 AM [employer] LABORATORY SERVICES - . [facility] PLATELETS 261 140 - 350 K/uL 03/13/2017 10:15 AM [facility] - [facility] MPV 10.0 9.3 - 12.4 fL 03/13/2017 10:15 AM [facility] SERVICES - [facility] NEUTROPHILS 33 % 03/13/2017 10:15 AM [facility] [employer] [facility] LYMPHOCYTES 43 % 03/13/2017 10:15 AM [facility] [employer] [facility] MONOCYTES 15 % 03/13/2017 10:15 AM [facility] [employer] [facility] EOSINOPHILS 7 % 03/13/2017 10:15 AM [facility] [employer] [facility] BASOPHILS 0 % 03/13/2017 10:15 AM [facility] [employer] [facility] IMMATURE GRANULOCYTES 2 % 03/13/2017 10:15 AM [facility] [employer] [facility] Comment:IG (Immature Granulo cyte) count includes Metamyelocytes, Myelocytes, and Promyelocytes NEUTROPHIL ABSOLUTE 1.68(L) 1.90 - 7.00 K/uL 03/13/2017 10:15 AM [facility] [employer] [facility] LYMPHOCYTE ABSOLUTE 2.14 0.70 - 4.50 K/uL 03/13/2017 10:15 AM [facility] [employer] [facility] MONOCYTE ABSOLUTE 0.74 0.10 - 1.30 K/uL 03/13/2017 10:15 AM [facility] [employer] - [facility] EOSINOPHIL ABSOLUTE 0.35 0.00 - 0.70 K/uL 03/13/2017 10:15 AM [facility] [employer] - [facility] BASOPHILS ABSOLUTE 0.02 0.00 - 0.20 K/uL 03/13/2017 10:15 AM [facility] [employer] [facility] IMMATURE GRANULOCYTES ABSOLUTE 0.10(H) 0.00 - 0.03 K/uL 03/13/2017 10:15 AM [facility] [employer] [facility] Blood Venipuncture / Unknown 03/13/2017 7:28 AM [facility] 03/13/2017 9:18 AM IVORY POLISHER us Zain Smith MD HEMATOLOGY ORDERABLES Final Result [employer] [facility] CLIA# [id number] [address] [place] [address] * (ABNORMAL) HEMOGLOBIN A1C (03/13/2017 7:28 AM IVORY POLISHER) HEMOGLOBIN A1C 6.3(H) 4.0 - 6.0 % 03/13/2017 10:54 AM IVORY POLISHER [facility] LABORATORY SERVICES [facility] EST. AVG GLUCOSE, A1C 134 mg/dL 03/13/2017 10:54 AM IVORY POLISHER [facility] LABORATORY [facility] Blood Venipuncture / Unknown 03/13/2017 7:28 AM IVORY POLISHER 03/13/2017 9:18 AM IVORY POLISHER us Zain Smith MD CHEMISTRY ORDERABLES Final R esult [facility] LABORATORY [facility]# [id number] [address] [place] [address] documented in this encounter Visit Diagnoses Diagnosis Encounter for general adult medical examination without abnormal findings Routine general medical examination at a health care facility documented in this encounter
--- OUTSIDE RECORDS SUMMARY | 2024-09-06 14:53 | XMS_ITS | Clinical Summary ---
Author Organization [facility] Address [address] [place] [address] Phone Care Team Providers Care Transportation Modeler Name Role Phone Unavailable Primary Care Provider [...] 1 mg Capsule Take by mouth. Active metoprolol succinate (TOPROL XL) 25 mg Extended Release 24 hour tablet Take 25 mg by mouth daily. 05/02/2024 Active Active Problems No known active problems Encounters Date Type Department Care Team Description 08/22/2024 External Device Data [facility] ABSTRACTION Provider, Abstract 08/21/2024 External Device Data [facility] ABSTRACTION Provider, Abstract 08/20/2024 External Device Data [facility] ABSTRACTION Provider, Abstract 06/19/2024 External Device Data [facility] ABSTRACTION Provider, Abstract 06/08/2024 External Device Data [facility] ABSTRACTION Provider, Abstract 06/07/2024 External Device Data [facility] ABSTRACTION Provider, Abstract from Last 3 Months Family History Medical [...] Sign Reading Time Taken Comments Blood Pressure 97/51 05/27/2024 2:14 PM SALES AND MERCHANDISING REPRESENTATIVE Pulse 53 05/27/2024 2:14 PM SALES AND MERCHANDISING REPRESENTATIVE Temperature 36.2 C (97.1 F) 05/27/2024 2:14 PM SALES AND MERCHANDISING REPRESENTATIVE Respiratory Rate 15 05/27/2024 2:14 PM SALES AND MERCHANDISING REPRESENTATIVE Oxygen Saturation 97% 05/27/2024 2:14 PM SALES AND MERCHANDISING REPRESENTATIVE Inhaled Oxygen Concentration - - Weight 120.2 kg (265 lb) 05/27/2024 2:14 PM SALES AND MERCHANDISING REPRESENTATIVE Height 165.1 cm (5' 5) 11/17/2023 10:49 AM CDT Body Mass Index 44.1 11/17/2023 10:49 AM CDT Plan of Treatment Upcoming Encounters Date Type Department Care Team (Late st Contact Info) Description 09/26/2024 2:15 PM CDT Office Visit [facility] Oncology and Hematology - [place] [address] [facility] [address] [place] [address] Gurjit Ayala MD [address] [facility] [address] [place] [address] Health Maintenance Due Date Last Done Comments DIABETES ANNUAL FOOT EXAM 07/16/1967 DIABETES ANNUAL RETINAL EXAM 07/16/1967 DIABETES MICROALBUMIN ANNUAL SCREEN 07/16/1967 LDL CHOLESTEROL ANNUAL 07/16/1967 FIT-DNA Q 3 years 1994 FIT/FOBT Q 1 year 1994 Flex Sig/CT Colonography Q 5 years 1994 ZOSTER VACCINE (1 of 2) 07/16/1999 OSTEOPOROSIS SCREENING 2014 DTAP/TDAP/TD VACCINES (2 - T d or Tdap) 02/06/2022 02/07/2012 INFLUENZA VACCINE (#1) 2023 COVID-19 Vaccine (5 - 2023-2 5 season) 2023 01/12/2021, 07/03/2020, 06/21/2020, Additional history exists DIABETES HBA1C Q 6 MONTHS 06/10/20242023, 01/12/2022, 01/12/2021, Additional history exists RSV VACCINE (60+ or ) (1 - 1-dose 75+ series) 2024 COLORECTAL SCREENING 11/19/2029 11/20/2019 Colorectal Cancer Screening 11/19/2029 PNEUMOCOCCAL VACCINE 50+ YEARS Completed 0 05/10/2023, 12/09/2014, 12/09/2014 Procedures Procedure Name Priority Date/Time Associated Diagnosis Comments HEMOGLOBIN A1C Routine 03/13/2017 7:28 AM SALES AND MERCHANDISING REPRESENTATIVE Encounter for general adult medical examination without abnormal findings from Last 3 Months or Most Recently Relevant to Health Maintenance Results * (ABNORMAL) HEMOGLOBIN A1C (03/13/2017 7:28 AM SALES AND MERCHANDISING REPRESENTATIVE) HEMOGLOBIN A1C 6.3(H) 4.0 - 6.0 % 03/13/2017 10:54 AM SALES AND MERCHANDISING REPRESENTATIVE [facility] EST. AVG GLUCOSE, A1C 134 mg/dL 03/13/2017 10:54 AM SALES AND MERCHANDISING REPRESENTATIVE [facility] Blood Venipuncture / Unknown 03/13/2017 7:28 AM SALES AND MERCHANDISING REPRESENTATIVE 03/13/2017 9:18 AM SALES AND MERCHANDISING REPRESENTATIVE us Zain Smith MD CHEMISTRY ORDERABLES Final R esult [facility] CLIA# [id number] [address] [address] from Last 3 Months or Most Recently Relevant to Health Maintenance Insurance MEDICARE PART A AND B [facility] [id number]
--- OUTSIDE RECORDS SUMMARY | 2024-09-06 14:53 | XMS_ITS ---
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 Phone Zain Smith Unavailable Functional Status No Results Mental Status No Results Allergies and Intolerances Name Onset Date Reaction Severity No Known Allergies (Allergy) MonJul 07 16:20:00 EDT 2017 Medications Medication Directions Start Date End Date glipiZIDE 10 mg tablet 20 mg TABLET Oral 1 Time Daily diabetes MonMar 13 13:00:00 EST 2016Mar 15:00:00 EST 2016 metFORMIN 850 mg tablet 2 tabs TABLET Or al 1 Time Daily diabetes MonMar 13:00:00 EST 2016Mar 15:00:00 EST 2016 Accu-Chek FastClix 1 check EACH Transde rmal 1 Time Daily MonMar 13 13:00:00 EST 2016Mar 15:00:00 EST 2016 atorvastatin 10 mg tablet 10mg TABLET Or al 1 Time Daily MonMar 12 21:00:00 EST 2016Mar 15:00:00 EST 2016 ascorbic acid (vitamin C) 500 mg tablet 500mg TABLET Oral 2 Times Daily MonMar 10 09:00:00 EST 2016Mar 15:00:00 EST 2016 metFORMIN 850 mg tablet 850 mg TABLET Or al 1 Time Daily diabetes MonMar 10 09:00:00 EST 2016Mar 13 13:09:00 EST 2016 Senna Plus 8.6 mg-50 mg tablet 1 TABLET Oral PRN 2 Times Daily constipation MonMar 10 09:00:00 EST 2016Mar 15 01:00:00 EST 2016 rosuvastatin 5 mg tablet 5mg TABLET Oral 1 Time Daily MonMar 10 09:00:00 EST 2017 MonMar 12 03:58:00 EST 2017 Tylenol 325 mg tablet 650mg TABLET Oral PRN Every 4 Hours Pain/Fever MonMar 10 20:00:00 EST 2016Mar 15 01:00:00 EST 2016 ascorbate calcium 500 mg tablet 500 mg TABLET Oral 2 Times Daily MonMar 09 15:24:00 EST 2016Mar 09 15:36:00 EST 2016 aspirin 325 mg tablet,delayed release 325 mg TABLET, DELAYED RELEASE (ENTERIC COATED) Oral Every 12 Hours blood thinner MonMar 09 15:25:00 EST 2016Mar 15 01:00:00 EST 2016 ascorbate calcium 500 mg tablet 500 mg TABLET Oral 2 Times Daily supplement MonMar 09 15:25:00 EST 2016Mar 10 09:44:00 EST 2016 cetirizine 10 mg tablet 10 mg TABLET Ora l PRN 1 Time Daily allergy MonMar 09 15:25:00 EST 2016Mar 15 01:00:00 EST 2016 ferrous sulfate 324 mg (65 mg iron) tablet,delayed release 325mg TABLET, DELAYED RELEASE (ENTERIC COATED) Oral 1 Time Daily for 30 Days anemia MonMar 09 15:25:00 EST 2016Mar 15 01:00:00 EST 2016 glipiZIDE 10 mg tablet 10 mg TABLET Oral 2 Times Daily diabetes MonMar 09 15:25:00 EST 2016Mar 13 13:08:00 EST 2016 HYDROcodone 5 mg-acetaminophen 325 mg tablet 1-2 TABLET Oral PRN Every 4 Hours for pain MonMar 09 15:25:00 EST 2016Mar 09 16:48:00 EST 2017 lisinopril 10 mg tablet 10 mg TABLET Ora l 1 Time Daily blood pressure MonMar 09 15:25:00 EST 2016Mar 15 01:00:00 EST 2016 metFORMIN 850 mg tablet 2 tabs TABLET Or al 1 Time Daily diabetes MonMar 09 15:25:00 EST 2016Mar 10 09:49:00 EST 2016 ondansetron 4 mg disintegrating tablet 4 mg TABLET,DISINTEGRATING Sublingual PRN Every 12 Hours nausea MonMar 09 15:25:00 EST 2016Mar 13 12:11:00 EST 2016 OxyCONTIN 20 mg tablet,extended release 20mg TABLET, EXTENDED RELEASE 12 HR Oral 2 Times Daily for 7 Days pain MonMar 09 15:25:00 EST 2016Mar 15 01:00:00 EST 2016 polyethylene glycol 3350 17 gram/dose oral powder 17g POWDER (GRAM) Oral 1 Time Daily constipation MonMar 09 15:25:00 2016Mar 15 01:00:00 EST 2016 rosuvastatin 5 mg tablet 5 mg TABLET Ora l 1 Time Daily cholesterol MonMar 09 15:25:00 2016Mar 10 09:57:00 EST 2016 Senna Laxative-Stool Softener 8.6 mg-50 mg tablet 1 TABLET Oral 2 Times Daily constipation MonMar 09 15:25:00 2016Mar 10 09:52:00 EST 2016 sertraline 50 mg tablet 2 tab TABLET Ora l 1 Time Daily depression MonMar 09 15:45:00 2016Mar 15 01:00:00 EST 2016 Januvia 100 mg tablet 100mg TABLET Oral 1 Time Daily diabetes MonMar 09 15:25:00 2016Mar 15 01:00:00 EST 2016 HYDROcodone 5 mg-acetaminophen 325 mg tablet 04/04/2016 00:00 TABLET Oral PRN Every 4 Hours for pain MonMar 09 15:25:00 2016Mar 09 16:47:00 EST 2016 HYDROcodone 5 mg-acetaminophen 325 mg tablet 1-2 TABLET Oral PRN Every 4 Hours pain MonMar 09 15:25:00 2016Mar 09 16:48:00 EST 2016 HYDROcodone 5 mg-acetaminophen 325 mg tablet 1-2 TABLET Oral PRN Every 4 Hours pain MonMar 09 15:25:00 EST 2016Mar 13 12:11:00 EST 2016 TUBErsol 5 tub. unit/0.1 mL intradermal injection solution 0.1 ml VIAL (ML) Intradermal 1 Time Weekly for 2 Weeks (PPD) 1st injection upon admission. Read between 48 and 72 hours and give 2nd injection 1 week after the 1st if result is negative. If positive result, proceed with chest x-ray to rule out active disease. MonMar 10 13:00:00 EST 2016Mar 15 01:00:00 EST 2016 TUBErsol 5 tub. unit/0.1 mL intradermal injection solution Read Results VIAL (ML) Other 1 Time Weekly for 2 Weeks Read results between 48-72 hours after 1st and 2nd 1 week apart. If positive do chest x-ray to rule out active disease. MonMar 12 13:00:00 2016Mar 15 01:00:00 EST 2016 HYDROcodone 5 mg-acetaminophen 325 mg tablet 5-325 mg 1-2 tabs TABLET Oral PRN Every 4 Hours pain MonMar 13 12:00:00 EST 2016Mar 15 01:00:00 EST 2016 TUBErsol 5 tub. unit/0.1 mL intradermal injection solution 0.1 ml VIAL (ML) Intradermal 1 Time Weekly for 2 Weeks (PPD) 1st injection upon admission. Read after 72 hours and give 2nd injection 1 week after the 1st if result is negative. If positive result, proceed with chest x-ray to rule out active disease. MonJul 13 13:00:00 EDT 2016Jul 20 01:00:00 EDT 2016 TUBErsol 5 tub. unit/0.1 mL intradermal injection solution Read Results VIAL (ML) Other 1 Time Weekly for 2 Weeks Read results 72 hours after 1st and 2nd 1 week apart. If positive do chest x-ray to rule out active disease. MonJul 13 13:00:00 EDT 2016Jul 20 01:00:00 EDT 2016 HumaLOG KwikPen 100 unit/mL subcutaneous as directed INSULIN PEN (ML) Subcutaneous 3 Times Daily Sliding Scale Insulin: Blood Sugar < 60 or > 401 Notify MD;70-150, 0 Units;151-200, 5 Units;201-250, 10 Units;251-300, 15 Units;301-350, 20 Units;351-400, 25 Units;> 401, 30 Units;. DM MonJul 11 18:00:00 EDT 2016Jul 20 01:00:00 EDT 2016 carvedilol 3.125 mg tablet 1 tab TABLET Oral 2 Times Daily irregular heart rate MonJul 09 18:00:00 EDT 2016Jul 20 01:00:00 EDT 2016 atorvastatin 10 mg tablet 10mg TABLET Or al 1 Time Daily hyperlipedemia MonJul 08 21:00:00 EDT 2016Jul 20 01:00:00 EDT 2016 metFORMIN 850 mg tablet 1700mg TABLET Or al Every 1 Day DM MonJul 08 18:00:00 EDT 2016Jul 20 01:00:00 EDT 2016 glipiZIDE 10 mg tablet 20mg TABLET Oral Every 1 Day DM MonJul 08 18:00:00 EDT 2016Jul 20 01:00:00 EDT 2016 Vitamin C 500 mg tablet 500mg TABLET Ora l 2 Times Daily Supplement Beth Jul 07 16:00:00 EDT 2016Jul 20:00:00 EDT 2016 aspirin 325 mg tablet 325mg TABLET Oral Every 12 Hours for 28 Days DVT Prophylactic Beth Jul 07 16:00:00 EDT 2016Jul 20 01:00:00 EDT 2016 ferrous sulfate 324 mg (65 mg iron) tablet,delayed release 1 tab TABLET, DELAYED RELEASE (ENTERIC COATED) Oral 1 Time Daily for 30 Days Supplement Beth Jul 07 16:00:00 EDT 2016Jul 20 01:00:00 EDT 2016 ondansetron 4 mg disintegrating tablet 4mg TABLET,DISINTEGRATING Oral PRN Every 12 Hours Nausea Beth Jul 07 16:00:00 EDT 2016Jul 20 01:00:00 EDT 2016 oxyCODONE 20 mg tablet 20mg TABLET Oral 2 Times Daily for 10 Days Pain Beth Jul 07 16:00:00 ED2016Jul 17 15:59:00 EDT 2016 Senna Laxative-Stool Softener 8.6 mg-50 mg tablet 1 tab TABLET Oral PRN 2 Times Daily Constipation Beth Jul 07 16:00:00 ED2016Jul 20 01:00:00 EDT 2016 HYDROcodone 5 mg-acetaminophen 325 mg tablet 5-325 mg 1 tab TABLET Oral PRN Every 4 Hours Pain Beth Jul 07 16:00:00 ED2016Jul 20 01:00:00 ED2016 HYDROcodone 5 mg-acetaminophen 325 mg tablet 2 tabs TABLET Oral PRN Every 4 Hours Pain Beth Jul 07 16:00:00 ED2016Jul 20 01:00:00 EDT 2016 Januvia 100 mg tablet 100mg TABLET Oral 1 Time Daily DM Beth Jul 07 16:00:00 ED2016Jul 20 01:00:00 ED2016 glipiZIDE 10 mg tablet 10mg TABLET Oral 1 Time Daily DM Beth Jul 07 16:00:00 ED2016Jul 08 15:27:00 EDT 2016 lisinopril 10 mg tablet 10mg TABLET Oral 1 Time Daily HTN Beth Jul 07 16:00:00 ED2016Jul 20 01:00:00 ED2016 metFORMIN 850 mg tablet 850mg TABLET Ora l 1 Time Daily DM Beth Jul 07 16:00:00 ED2016Jul 08 15:27:00 EDT 2016 rosuvastatin 5 mg tablet 5mg TABLET Oral 1 Time Daily Hyperlipidemia Beth Jul 07 16:00:00 EDT 2016Jul 08 03:15:00 EDT 2016 sertraline 50 mg tablet 50mg TABLET Oral 1 Time Daily Depression MonJul 07 16:00:00 EDT 2016Jul 20 01:00:00 EDT 2016 cetirizine 10 mg tablet 10mg TABLET Oral 1 Time Daily Allergies MonJul 07 16:00:00 EDT 2016Jul 20 01:00:00 EDT 2016 HumaLOG KwikPen 100 unit/mL subcutaneous SSI INSULIN PEN (ML) Subcutaneous 3 Times Daily Sliding Scale Insulin: Blood Sugar < 60 or > 401 Notify MD;70-150, 0 Units;151-200, 3 Units;201-250, 6 Units;251-300, 9 Units;301-350, 12 Units;351-400, 15 Units;> 401, 18 Units;. MonJul 07 17:00:00 EDT 2016Jul 11 18:25:00 EDT 2016 Problems Active Concerns * Aftercare following joint replacement surgery* Code: * Start Date: MonJul 07 00:00:00 EDT 2016 * End Date: * Text: * Presence of left artificial hip joint* Code: * Start Date: MonJul 07 00:00:00 EDT 2016 * End Date: * Text: * Unspecified osteoarthritis, unspecified site* Code: * Start Date: MonJul 07 00:00:00 EDT 2016 * End Date: * Text: * Type 2 diabetes mellitus without complications* Code: * Start Date: MonJul 07 00:00:00 EDT 2016 * End Date: * Text: * Acute kidney failure, unspecified* Code: * Start Date: MonJul 07 00:00:00 EDT 2016 * End Date: * Text: * Hyperlipidemia, unspecified* Code: * Start Date: MonJul 07 00:00:00 EDT 2016 * End Date: * Text: * Essential (primary) hypertension* Code: * Start Date: MonJul 07 00:00:00 EDT 2016 * End Date: * Text: * Anemia, unspecified* Code: * Start Date: MonJul 07 00:00:00 EDT 2016 * End Date: * Text: * Presence of left artificial knee joint* Code: * Start Date: MonJul 07 00:00:00 EDT 2016 * End Date: * Text: * terminal gauger (current) use of aspirin* Code: * Start Date: MonJul 07 00:00:00 EDT 2016 * End Date: * Text: * Hyperglycemia, unspecified* Code: * Start Date: MonJul 07 00:00:00 EDT 2016 * End Date: * Text: * Hypo-osmolality and hyponatremia* Code: * Start Date: MonJul 07 00:00:00 EDT 2016 * End Date: * Text: * Major depressive disorder, single episode, unspecified* Code: * Start Date: MonJul 07 00:00:00 EDT 2016 * End Date: * Text: * Presence of right artificial knee joint* Code: * Start Date: MonMar 09 00:00:00 EST 2016 * End Date: * Text: * Unilateral primary osteoarthritis, right knee* Code: * Start Date: MonMar 09 00:00:00 2016 * End Date: * Text: * Acute posthemorrhagic anemia* Code: * Start Date: MonMar 09 00:00:00 2016 * End Date: * Text: * Slow transit constipation* Code: * Start Date: MonMar 09 00:00:00 2016 * End Date: * Text: * Allergic rhinitis, unspecified* Code: * Start Date: MonMar 09 00:00:00 2016 * End Date: * Text: Reason for Referral Past Medical History
--- OUTSIDE RECORDS SUMMARY | 2024-09-06 14:53 | XMS_ITS | Clinical Summary ---
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 Role Phone Kirsten Pendleton MD Primary Care Provider [phone] Allergies No known active allergies Medications glipiZIDE (GLUCOTROL) 10 MG tablet Take 20 mg by mouth 1 (one) time each day 04/07/2019 Active lisinopril (PRINIVIL,ZESTRI L) 10 MG tablet Take 10 mg by [...] mellitus without complication Essential hypertension 07/07/2016 Immunizations Immunization Administration Dates Next Due Influenza TIV (IM) 06/16/2021(Deferred: Patient Refused) Pfizer Sars-cov-2 Vaccination 01/12/2021, 021,06/21/2020 Pneumococcal Polysaccharide 12/09/2014 Pneumococcal, Unspecified 12/09/2014 Tdap 02/07/2012,02/07/2012 Social History Tobacco Use Types Packs/Day Years Used Date Smoking Tobacco: Former Smokeless Tobacco: Never Alcohol Use Standard Drinks/Week Comments Yes 2 (1 standard drink = 0.6 oz pur e alcohol) Comments Unknown Sex and Gender Information Value Date Recorded Sex Assigned at Not on file Legal Sex Female 9:55 AM [facility] Gender Identity Not on file Sexual Orientation [...] 11:37 AM CDT Height 167.6 cm (5' 6) 12/20/2021 11:37 AM CDT Body Mass Index 44.71 12/20/2021 11:37 AM CDT Plan of Treatment Health Maintenance Due Date Last Done Comments Pneumococcal PPSV23/PCV13 65 + Years / Low and Medium Risk (2 of 3 - PCV) 12/10/2015 12/09/2014 COVID-19 Vaccine ( season) 2023 01/12/2021, 07/03/2020, 06/21/2020 Influenza Vaccine (Season Ended) 2024 Insurance MEDICARE [facility] Care Teams Varnish Maker Helper Relationship Specialty Start Date End Date Kirsten Pendleton MD [address] [place] [address] PCP - General Family Medicine 04/01/19
--- OUTSIDE RECORDS SUMMARY | 2024-09-06 14:53 | XMS_ITS | Data Portability ---
[facility] Organization [facility]ta Address [address] [place] [address] Care Team Providers Care Compliance Director Name Role Phone TIMMY DAHIANA OTHER SHELBY MACKEY Orthopedic Surgeon [phone] PHU GRIFFIN Primary Care Provider [phone] Assessment No assessment recorded. Plan of Treatment Reminders Order Date Submit Date Provider Last Modified By Organization Details Last Modified Time Details Appointments ANY 15 2024 11:00A M SUSHIL PAULSON Not available Not available Not available Lab CMP, serum or plasma 2024 025 [facility], [address] [place] [address], [facility] [address], [place], [address], 09/03/2024 14:21:47 HbA1c (hemoglob in A1c), blood 2024 025 [facility], [address] [place] [address], [facility] [address], [place], [address], 09/03/2024 14:21:47 albumin/c reatinine , mass ratio, urine 2024 025 [facility], [address] [place] [address], [address], [place], [address], 09/03/2024 14:21:47 HbA1c (hemoglob in A1c), blood 2024 025 MIAH In-Office Order, Internal Use Only DO Not Attach Compendium DO Not Attach Compendium, Do Not Delete/merge, [id number] 04/04/2024 13:02:46 HbA1c (hemoglob in A1c), blood 2023 024 POWDERLY In-Office Order, Internal Use Only DO Not Attach Compendium DO Not Attach Compendium, Do Not Delete/merge, [id number] 12/12/2023 17:38:42 Referral physical therapist referral 2024 025 [facility] (Outpatient Physical Therapy), [address], [place], [address], 09/03/2024 16:51:45 Procedures None recorded. Surgeries None recorded. Imaging MAMMO, screening , digital, bilateral 2024 025 [email or web address] [facility], [address] [place], [address], 07/03/2024 07:55:14 Medication Orders Ozempic 0.25 mg or 0.5 mg (2 mg/1.5 mL) subcutane ous pen injector 2024 025 [id number], [address] [place], [address], 09/02/2024 12:25:52 lisinopri l 5 mg tablet 2023 024 [facility][id number], [address] [place], [address], 12/12/2023 16:23:54 Patient TargetsNo targets recorded. Patient Instructions Encounter Date Encounter Id Patient Instructions Last Modified By Organization Details Last Modified Time 12/12/2023 [id number] A healthy lifestyle: care instructions Not available 12/13/2023 12:38:35 04/04/2024 [id number] A healthy lifestyle: care instructions Not available 04/04/2024 10:45:48 06/05/2024 [id number] A healthy lifestyle: care instructions Not available 06/06/2024 08:16:17 Reason for Referral Physical Therapist Referral for Impairment of balance Referring Physician: Phu Griffin, Case Folder, Encounter Date: 09/02/2024 Results Created Date Observation Date Name Description Value Unit Range Abnormal Flag Note LastModifiedBy Organization Detail LastModifiedTime 10/13/19 24 10/14/2023 IRON AND TIBC iron bind.cap.(TI BC) 370 ug/dL 250-45 0 Not Available [facility] ([facility]) [address] [place], [address], 10/14/2023 10:21:33 10/13/19 24 10/14/2023 IRON AND TIBC UIBC 346 ug/dL 118-36 9 Not Available [facility] ([facility]) [address] [place], [address], 10/14/2023 10:21:33 10/13/19 24 10/14/2023 IRON AND TIBC iron 24 ug/dL 27-139 below low normal Not Available [facility] ([facility]) [address] [place], [address], 10/14/2023 10:21:33 10/13/19 24 10/14/2023 IRON AND TIBC iron saturation 6 % 15-55 alert low Not Available [facility] ([facility]) [address] [place], [address], 10/14/2023 10:21:33 10/13/19 24 10/14/2023 JAMES TIN ferritin 32 NG/mL 15-150 Not Available [facility] ([facility]) [address] [place], [address], 10/14/2023 10:21:34 10/13/19 24 10/14/2023 CBC WITH DIFFE RENTI AL/PL ATELE T WBC 7.2 x10e3 /uL 3.4-10 .8 Not Available [facility] ([facility]) [address] [place], [address], 10/14/2023 10:21:34 10/13/19 24 10/14/2023 CBC WITH DIFFE RENTI AL/PL ATELE T RBC 3.79 x10e6 /uL 3.77-5 .28 Not Available [facility] ([facility]) [address] [place], [address], 10/14/2023 10:21:34 10/13/19 24 10/14/2023 CBC WITH DIFFE RENTI AL/PL ATELE T hemoglobin 9.4 g/dL 11.1-1 5.9 below low normal Not Available [facility] ([facility]) [address] [place], [address], 10/14/2023 10:21:34 10/13/19 24 10/14/2023 CBC WITH DIFFE RENTI AL/PL ATELE T hematocrit 32.0 % 34.0-4 6.6 below low normal Not Available [facility] ([facility]) [address] [place], [address], 10/14/2023 10:21:34 10/13/19 24 10/14/2023 CBC WITH DIFFE RENTI AL/PL ATELE T MCV 84 fL 79-97 Not Available [facility] ([facility]) [address] [place], [address], 10/14/2023 10:21:34 10/13/19 24 10/14/2023 CBC WITH DIFFE RENTI AL/PL ATELE T MCH 24.8 pg 26.6-3 3.0 below low normal Not Available [facility] ([facility]) [address] [place], [address], 10/14/2023 10:21:34 10/13/19 24 10/14/2023 CBC WITH DIFFE RENTI AL/PL ATELE T MCHC 29.4 g/dL 31.5-3 5.7 below low normal Not Available [facility] ([facility]) [address] [place], [address], 10/14/2023 10:21:34 10/13/19 24 10/14/2023 CBC WITH DIFFE RENTI AL/PL ATELE T RDW 15.2 % 11.7-1 5.4 Not Available [facility] ([facility]) [address] [facility], [place], [address], 10/14/2023 10:21:34 10/13/19 24 10/14/2023 CBC WITH DIFFE RENTI AL/PL ATELE T platelets 300 x10e3 /uL 150-45 0 Not Available [facility] ([facility]) [address] [facility], [place], [address], 10/14/2023 10:21:34 10/13/19 24 10/14/2023 CBC WITH DIFFE RENTI AL/PL ATELE T neutrophils 47 % notest ab. Not Available [facility] ([facility]) [address] [facility], [place], [address], 10/14/2023 10:21:34 10/13/19 24 10/14/2023 CBC WITH DIFFE RENTI AL/PL ATELE T lymphs 39 % notest ab. Not Available [facility] ([facility]) [address] [facility], [place], [address], 10/14/2023 10:21:34 10/13/19 24 10/14/2023 CBC WITH DIFFE RENTI AL/PL ATELE T monocytes 8 % notest ab. Not Available [facility] ([facility]) [address] [facility], [place], [address], 10/14/2023 10:21:34 10/13/19 24 10/14/2023 CBC WITH DIFFE RENTI AL/PL ATELE T eos 5 % notest ab. Not Available [facility] ([facility]) [address] [facility], [place], [address], 10/14/2023 10:21:34 10/13/19 24 10/14/2023 CBC WITH DIFFE RENTI AL/PL ATELE T basos 1 % notest ab. Not Available [facility] ([facility]) [address] [facility], [place], [address], 10/14/2023 10:21:34 10/13/19 24 10/14/2023 CBC WITH DIFFE RENTI AL/PL ATELE T neutrophils (absolute) 3.4 x10e3 /uL 1.4-7. 0 Not Available [facility] ([facility]) [address] [facility], [place], [address], 10/14/2023 10:21:34 10/13/19 24 10/14/2023 CBC WITH DIFFE RENTI AL/PL ATELE T lymphs (absolute) 2.8 x10e3 /uL 0.7-3. 1 Not Available [facility] ([facility]) [address] [place], [address], 10/14/2023 10:21:34 10/13/19 24 10/14/2023 CBC WITH DIFFE RENTI AL/PL ATELE T monocytes(ab solute) 0.6 x10e3 /uL 0.1-0. 9 Not Available [facility] ([facility]) [address] [place], [address], 10/14/2023 10:21:34 10/13/19 24 10/14/2023 CBC WITH DIFFE RENTI AL/PL ATELE T eos (absolute) 0.3 x10e3 /uL 0.0-0. 4 Not Available [facility] ([facility]) [address] [place], [address], 10/14/2023 10:21:34 10/13/19 24 10/14/2023 CBC WITH DIFFE RENTI AL/PL ATELE T baso (absolute) 0.1 x10e3 /uL 0.0-0. 2 Not Available [facility] ([facility]) [address] [place], [address], 10/14/2023 10:21:34 10/13/19 24 10/14/2023 CBC WITH DIFFE RENTI AL/PL ATELE T immature granulocytes 0 % notest ab. Not Available [facility] ([facility]) [address] [facility], [place], [address], 10/14/2023 10:21:34 10/13/19 24 10/14/2023 CBC WITH DIFFE RENTI AL/PL ATELE T immature grans (abs) 0.0 x10e3 /uL 0.0-0. 1 Not Available [facility] ([facility]) [address] [facility], [place], [address], 10/14/2023 10:21:34 12/12/19 24 12/12/2023 HbA1c (hemo globi n A1c), blood HbA1c 5.9 Not Available In-Office Order Internal Use Only DO Not Attach Compendium DO Not Attach Compendium, Do Not Delete/merge, [id number] 12/12/2023 16:30:10 04/04/19 25 04/04/2024 HbA1c (hemo globi n A1c), blood HbA1c 6.9% Not Available In-Office Order Internal Use Only DO Not Attach Compendium DO Not Attach Compendium, Do Not Delete/merge, [id number] 04/04/2024 11:02:30 09/03/19 25 09/03/2024 ALBUM IN/CR EATIN INE RATIO ,URIN E creatinine, urine 82.6 mg/dL notest ab. Not Available [facility] ([facility]) [address] [facility], [place], [address], 09/03/2024 11:13:12 09/03/19 25 09/03/2024 ALBUM IN/CR EATIN INE RATIO ,URIN E albumin, urine 7.6 ug/mL notest ab. Not Available [facility] ([facility]) [address] [facility], [place], [address], 09/03/2024 11:13:12 09/03/19 25 09/03/2024 ALBUM IN/CR EATIN INE RATIO ,URIN E alb/creat ratio 9 mg/g_ creat 0-29 Tatiana l: 0 - 29 Moder ately incre ased: 30 - 300 Sever noah incre ased: >300 Not Available [facility] ([facility]) [address] [place], [address], 09/03/2024 11:13:12 09/03/19 25 09/03/2024 COMP. METAB OLIC PANEL (14) glucose 222 mg/dL 70-99 above high normal Not Available [facility] ([facility]) [address] [place], [address], 09/03/2024 11:13:12 09/03/19 25 09/03/2024 COMP. METAB OLIC PANEL (14) BUN 26 mg/dL 8-27 Not Available [facility] ([facility]) [address] [place], [address], 09/03/2024 11:13:12 09/03/19 25 09/03/2024 COMP. METAB OLIC PANEL (14) creatinine 1.61 mg/dL 0.57-1 .00 above high normal Not Available [facility] ([facility]) [address] [place], [address], 09/03/2024 11:13:12 09/03/19 25 09/03/2024 COMP. METAB OLIC PANEL (14) eGFR 33 mL/mi n/1.7 3 >59 below low normal Not Available [facility] ([facility]) [address] [place], [address], 09/03/2024 11:13:12 09/03/19 25 09/03/2024 COMP. METAB OLIC PANEL (14) BUN/creatini ne ratio 16 12-28 Not Available [facility] ([facility]) [address] [place], [address], 09/03/2024 11:13:12 09/03/19 25 09/03/2024 COMP. METAB OLIC PANEL (14) sodium 135 mmol/ L 134-14 4 Not Available [facility] ([facility]) [address] [facility] [place], [address], 09/03/2024 11:13:12 09/03/19 25 09/03/2024 COMP. METAB OLIC PANEL (14) potassium 5.3 mmol/ L 3.5-5. 2 above high normal Not Available [facility] ([facility]) [address] [facility] [place], [address], 09/03/2024 11:13:12 09/03/19 25 09/03/2024 COMP. METAB OLIC PANEL (14) chloride 103 mmol/ L 96-106 Not Available [facility] ([facility]) [address] [facility] [place], [address], 09/03/2024 11:13:12 09/03/19 25 09/03/2024 COMP. METAB OLIC PANEL (14) carbon dioxide, total 19 mmol/ L 20-29 below low normal Not Available [facility] ([facility]) [address] [facility] [place], [address], 09/03/2024 11:13:12 09/03/19 25 09/03/2024 COMP. METAB OLIC PANEL (14) calcium 9.2 mg/dL 8.7-10 .3 Not Available [facility] ([facility]) [address] [facility] [place], [address], 09/03/2024 11:13:12 09/03/19 25 09/03/2024 COMP. METAB OLIC PANEL (14) protein, total 6.8 g/dL 6.0-8. 5 Not Available [facility] ([facility]) [address] [facility] [place], [address], 09/03/2024 11:13:12 09/03/19 25 09/03/2024 COMP. METAB OLIC PANEL (14) albumin 4.0 g/dL 3.8-4. 8 Not Available [facility] ([facility]) [address] [facility], [place], [address], 09/03/2024 11:13:12 09/03/19 25 09/03/2024 COMP. METAB OLIC PANEL (14) globulin, total 2.8 g/dL 1.5-4. 5 Not Available [facility] ([facility]) [address] [facility], [place], [address], 09/03/2024 11:13:12 09/03/19 25 09/03/2024 COMP. METAB OLIC PANEL (14) bilirubin, total 0.5 mg/dL 0.0-1. 2 Not Available [facility] ([facility]) [address] [facility], [place], [address], 09/03/2024 11:13:12 09/03/19 25 09/03/2024 COMP. METAB OLIC PANEL (14) alkaline phosphatase 84 IU/L 44-121 Not Available [facility]) [address] [place], [address], 09/03/2024 11:13:12 09/03/19 25 09/03/2024 COMP. METAB OLIC PANEL (14) AST (SGOT) 32 IU/L 0-40 Not Available [facility] ([facility]) [address] [place], [address], 09/03/2024 11:13:12 09/03/19 25 09/03/2024 COMP. METAB OLIC PANEL (14) ALT (SGPT) 18 IU/L 0-32 Not Available [facility] ([facility]) [address] [place], [address], 09/03/2024 11:13:12 09/03/19 25 09/03/2024 HEMOG LOBIN A1C hemoglobin A1C 8.1 % 4.8-5. 6 above high normal Predi abete s: 5.7 - 6.4 Diabe mary kay: >6.4 Glyce cruz contr ol for adult s with diabe mary kay: <7.0 Not Available [facility] ([facility]) [address], [place], [address], 09/03/2024 11:13:13 09/28/19 24 09/28/2023 US, jennifer berry s, lower extre mity No observ ation record ed. [address], [place], [address], 10/03/2023 13:12:40 09/28/19 24 09/28/2023 [place], jennifer berry s, lower extre mity No observ ation record ed. [address] [facility], [place], [address], 10/03/2023 13:12:40 08/22/19 25 08/21/2024 MAMMO , scree barron, digit al, bilat eral No observ ation record ed. [email or web address] [place] [address], [place], [address], 08/29/2024 08:04:08 Result Notes None recorded. Problems Name Problem SNOMED Code Status Onset Date Resolution Date Notes Provider Name and Address Organization Details Recorded Time Chronic kidney disease stage 3 052190569 Active 2018 Nuha Gold [place] null, [place] - [facility] 9 14:16:49 Diabetes mellitus 71293419 Active NIDDM TYPE II RADHA BONILLA NP Attn: Nicole fisher,[address] [facility], [place], [address], [place] [facility] 8 14:39:52 Essential hypertens ion 65101467 Active RADHA BONILLA NP Attn: Nicole g,[address], [place], [address], [place] [facility] 8 14:39:52 Atrial fibrillat ion 39337189 Active 2023 SUSHIL PAULSON Attn: Accountin g,[address] [facility], [place], [address], [place] [facility] 4 15:28:30 Morbid obesity 785553956 Active 2023 SUSHIL PAULSON Attn: Accountin g,[address] [facility], [place], [address], [place] [facility] 4 06:53:43 Tachycard ia 9809157 Active 2023 SUSHIL PAULSON Attn: Accountin g,[address] [facility], [place], [address], [place] [facility] 4 06:54:15 Venous stasis ulcer with edema of right lower leg 402737020893 66331 Active 2023 SUSHIL PAULSON Attn: Accountin g,[address] [facility], [place], [address], [place] [facility] 4 08:31:12 Poor balance 368588319 Active 2023 SUSHIL PAULSON Attn: Accountin g,[address] [facility], [place], [address], [place] [facility] 4 08:31:13 Hyperlipi demia 00404053 Active 2023 SUSHIL PAULSON Attn: Accountin g,[address] [facility], [place], [address], [place] [facility] 4 08:31:16 Orthostat ic hypotensi on 68520953 Active 2023 SUSHIL PAULSON Attn: Accountin g,[address] [facility], [place], [address], [place] [facility] 4 12:38:10 Obesity 104168301 Active 2023 SUSHIL PAULSON Attn: Accountin g,[address] [facility], [place], [address], [place] [facility] 4 12:38:44 Impairmen t of balance 801232856 Active 2024 SUSHIL PAULSON Attn: Nicole fisher,[address] [facility], [place], [place], [address] [place] [address] 2, [place] [facility] 5 14:21:39 Type 2 diabetes mellitus 68577414 Active 2024 SUSHIL PAULSON Attn: Nicole fisher,[address] [facility], [place], [place], [address] [place] [address] 2, [place] [facility] 5 14:21:40 Lesion of tongue 468122560 Completed 10/17/2019 FIONA MATTSON Attn: Nicole fisher,[address] [facility], [place], [place], [address] [place] [address] 2, [place] [facility] 0 17:33:41 Acute sinusitis 02445147 Completed 01/02/2019 FIONA MATTSON Attn: Nicole fisher,[address] [facility], [place], [place], [address] [place] [address] 2, [place] [facility] 9 12:25:34 Depressiv e disorder 82118960 Active RADHA BONILLA NP Attn: Nicole fisher,[address] [facility], [place], [place], [address] [place] [address] 2, [place] [facility] 8 14:39:52 Purpuric rash 969967906 Completed 07/09/2019 FIONA MATTSON Attn: Nicole fisher,[address] [facility], [place], [place], [address] [place] [address] 2, [place] [facility] 0 11:18:09 Pain in left knee Active RADHA BONILLA NP Attn: Accounthector fisher,[address] [facility], [place], [place], [address] [place] [address] 2, [place] [facility] 8 14:39:52 Serum creatinin e above reference range 620928337 Completed 07/09/2019 FIONA MATTSON Attn: Accounthector fisher,[address] [facility], [place], [place], [address] [place] [address] 2, [place] [facility] 0 11:18:07 Problem Notes None recorded. Procedures Surgical History Date Name Laterality Status Provider Name and Address Organization Details Recorded Time 3 Date of Last Mammogram completed Olivia Francisco [place] 05/10/2023 14:38:56 7 Knee Surgery completed Nuha Gold [place] - [facility] 07/11/2016 09:16:30 Other completed Nuha Gold [place] - [facility] 12/16/2015 11:34:10 Other completed Nuha Gold [place] - [facility] 12/16/2015 11:34:10 Breast Surgery completed Nuha Gold [place] - [facility] 12/16/2015 11:34:10 Imaging Results None recorded. Procedure Notes None recorded. Medical Equipment None [...] t Available atorvasta tin 40 mg tablet TAKE 1 TABLET BY MOUTH DAILY active Not Available Not Available No t Available Augmentin 875 mg-125 mg tablet Take 1 [...] glipizide 10 mg tablet TAKE 2 TABLETS EVERY DAY BY MOUTH DIRECTED FOR 90 DAYS. 2024 active Not Available Not Available Not Avai lable prednison e 20 mg tablet 2 tabs daily x 5 days, 1 tab daily x 5 day. 12/08 completed Not Available Not Available Not Available sertralin e 100 mg tablet Take 1 tablet every day by oral route for 30 days. 11/07 completed Not Available Not Available Not Available metformin 850 mg tablet TAKE 2 TABLETS BY MOUTH EVERY DAY 09/03 completed Not Available Not Available Not Available sulfameth oxazole 800 mg-trimet hoprim 160 [...] 1 TABLET BY MOUTH EVERY DAY DIRECTED 06/05 completed Not Available Not Available Not Available sertralin e 25 mg tablet TAKE 1 TABLET BY MOUTH EVERY DAY (TAKE WITH 100 MG TABLET) active Not Available Not Available No t Available diclofena c sodium 75 mg tablet,de layed release TAKE ONE TABLET BY MOUTH TWICE DAILY active Not Available Not Available No t Available lisinopri l 5 mg tablet Take 1 tablet every day by oral route for 90 days. 2024 active Not Available Not Available Not Avai lable hydrochlo rothiazid e 25 mg tablet TAKE 1 TABLET BY MOUTH EVERY DAY NEEDED FOR EDEMA 12/11 completed Not Available Not Available Not Available furosemid e 20 mg tablet Take 1 tablet every day by oral route for 90 days. active takes as needed Not Available Not Available Not Available fluticaso ne propionat e 50 mcg/actua tion nasal spray,luann [place] 2 sprays every day by intranas al route. 05/22 completed Not Available Not Available Not Available sertralin e 50 mg tablet TAKE 1 TABLET BY MOUTH DAILY active Not Available Not Available No t Available rosuvasta tin 20 mg tablet TAKE 1 TABLET BY MOUTH EVERYDAY AT BEDTIME 08/31 completed Not Available Not Available Not Available Crestor 5 mg tablet TAKE ONE TABLET BY MOUTH ONCE DAILY 07/29 completed Not Available Not Available Not Available Klor-Con M20 mEq tablet,ex tended release active not taking Not Available Not Available Not Available bupropion HCl XL 150 mg 24 hr tablet, extended release Take 1 tablet every day by oral route. 06/07 completed Not Available Not Available Not Available metoprolo l tartrate 25 mg tablet TAKE 1 TABLET TWICE A DAY BY ORAL ROUTE FOR 90 DAYS. 2023 active takes half bid Not Available Not Available Not Available Pain Relief Extra Strength (acetamin ophen) 500 [...] Available Not Available Xarelto 20 mg tablet TAKE ONE TABLET BY MOUTH EVERY EVENING WITH FOOD active Not Available Not Available No t Available Eliquis 5 mg tablet TAKE 1 TABLET BY MOUTH TWICE A DAY 05/16 completed Not Available Not Available Not Available Nesina 25 mg tablet TAKE ONE TABLET BY MOUTH DAILY 01/12 completed Patient never took Not Available Not Available Not Available Jardiance 10 mg tablet Take 1 tablet by mouth every day 2024 active Not Available Not Available Not Avai lable Ozempic 0.25 mg or 0.5 mg (2 mg/1.5 mL) subcutane ous pen injector Inject 0.25 mg every week by subcutan eous route. 12/11 completed Not Available Not Available Not Available Ozempic 0.25 mg or 0.5 mg [...] Updated DateTime 5 165.1 cm 43.3 kg/m2 981799. 02 g 67 /min 18 /min 95 % 95 % 98 mm[Hg] 65 mm[Hg] Francisca Stone MA [facility] 5 10:43:19 Date Recorded Body height Body mass index (BMI) Body weight Heart rate Oxygen saturation Oxygen saturation in Arterial blood by Pulse oximetry Systolic blood pressure Diastolic blood pressure Provider Name and Address Organization Details Last Updated DateTime 5 165.1 cm 44 kg/m2 044405. 09 g 72 /min 98 % 98 % 124 mm[Hg] 84 mm[Hg] Sherie Rojas MA [facility] 5 15:32:04 Date Recorded Body height Body mass index (BMI) Body weight Heart rate Oxygen saturation Oxygen saturation in Arterial blood by Pulse oximetry Systolic blood pressure Diastolic blood pressure Provider Name and Address Organization Details Last Updated DateTime 5 165.1 cm 44.1 kg/m2 460622. 98 g 72 /min 96 % 96 % 113 mm[Hg] 66 mm[Hg] Olivia Francisco MA [facility] 5 12:20:54 Date Recorded Body height Body mass index (BMI) Body weight Heart rate Oxygen saturation Oxygen saturation in Arterial blood by Pulse oximetry Respiratory rate Systolic blood pressure Diastolic blood pressure Provider Name and Address Organization Details Last Updated DateTime 4 165.1 cm 39.8 kg/m2 390254. 58 g 72 /min 97 % 97 % 14 /min 89 mm[Hg] 58 mm[Hg] SUSHIL PAULSON Attn: Nicole fisher,[address] [place], [address], [facility] 4 12:37:41 Social History Question Answer Notes LastModified by Organizat ion Details LastModified Time Tobacco Smoking Status Former Smoker Stopped when 24 yrs old Nilam Zarco MA null, [facility] 07/13/2020 15:23:56 Hard Of Hearing Or Deaf In One Or Both Ears? No Information not available 12/16/2015 Legally Blind In One Or Both Eyes? No Information not available 12/16/2015 Live Alone Or With Others? Alone Information not available 12/16/2015 What Was The Date Of Your Most Recent Tobacco Screening? 09/02/2024 Information not available 09/02/2024 How Many Children Do You Have? 0 Information not available 12/16/2015 Has Tobacco Cessation Counseling Been Provided? Yes Information not available 05/10/2023 On What Date Was Tobacco Cessation Counseling Provided? 09/02/2024 Information not available 09/02/2024 Sex: Unknown Functional Status Question Answer Note LastModified by Organizat ion Details LastModified Time What is your level of alcohol consumption? Occasional [email or web address] Information not available 05/21/2014 Are you able to care for yourself? Yes Information not available 12/16/2015 Mental Status None recorded. Family [...] PF, 30 mcg/0.3 mL dose 1 completed JACKELINE Nova, [place] [facility] 12/26/2023 08:39:13 COVID-19, mRNA, LNP-S, PF, 30 mcg/0.3 mL dose 1 completed Olivia Francisco [place], [place] [facility] 12/26/2023 08:39:13 Tdap 2 completed RADHA BONILLA NP Attn: Accounting,[address] [facility], [place], [address], [place] [facility] 07/06/2017 14:40:03 pneumococcal polysaccharide PPV23 5 completed Not Available [facility] 04/20/2019 02:29:46 Pneumococcal conjugate PCV20, polysaccharide [id number] conjugate, adjuvant, PF 4 completed SUSHIL PAULSON Attn: Accounting,[address] [facility], [place], [address], [place] [facility] 05/16/2023 06:12:24 Past Encounters Encounter ID Performer Location Encounter Start Date Encounter Closed Date Diagnosis/Indication Diagnosis SNOMED-CT Code Diagnosis ICD10 Code Diagnosis Note [id number] Dyan Landin MD [address] [address] 05/21/2014 11:06:56 05/21/2014 11:57:29 Diabetes mellitus [id number] reviewed lab and meds--need s to get better at taking meds discussed stressors- -dealing w/ Essential hypertension 90283887 cont meds-- [id number] Dyan Landin MD [facility] [address] [address] 09/02/2014 11:42:37 09/02/2014 12:39:04 Diabetes mellitus [id number] reviewed lab and meds--no changes--w ork on diet Lesion of tongue [id number] back on Orabase gel try to get nightguard [id number] Dyan Landin MD [facility] [address] [address] 12/09/2014 10:38:32 12/09/2014 11:49:07 Diabetes mellitus 40429518 reviewed lab--doing well--cont meds work at exercise needs to try to get better mouth guard--old one rubs against tongue [id number] Fly Vivar MD [facility] [address] [address] 01/15/2015 10:21:35 01/15/2015 10:51:33 Diabetes mellitus 41820970 E11.9 Essential hypertension 85275290 I10 Acute sinusitis 98414017 J01.90 [id number] Dyan Landin MD [facility] [address] [address] 06/16/2015 10:52:02 06/16/2015 14:35:53 Adult health examination 314247569 Z00.01 reviewed lab and meds. encouraged reg exercise-- work up to 150 min /wk Diabetes mellitus 625778 E13.65 reviewed lab--takin g meds but not doing well w/ diet--revi ewed. no med changes. try to check bs's weekly--st art w/ goal below 200. repeat lab in 3mo Depressive disorder 3548 9007 F33.1 discussed issues--te nds to be a hoarder. believe a lot of it is from depression . declines therapy. will change meds. strategies to deal w/ issues discussed. fu closely Purpuric rash 031239873 D69.2 will treat w/ round of steroids. start zyrtec. be aware that bs's will go up [id number] Dyan Landin MD [address] [address] 09/16/2015 11:39:34 09/16/2015 13:04:36 Depressive disorder 64426308 F33.1 thinks she did better on higher dose of Zoloft--wi ll go back to 100mg; cont wellbutrin . discussed issues--en couraged to take action with issues of hoarding Diabetes mellitus 873314 E13.65 reviewed lab and meds--doin g a little better w/ wt loss/ diet. cont to work on it--realiz es she is maxed out on present oral meds [id number] Dyan Landin MD [facility] [address] [address] 10/16/2015 11:50:29 10/28/2015 03:47:45 Pain in left knee 5817767993 82574 M25.562 will get xray. stop Ibuprofen- -will give short burst of Toradol. can take Tylenol prn as suppliment . ice Adult heal th examination 189935938 Z00.01 reviewed lab and meds. encouraged reg exercise-- work up to 150 min /wk [id number] Fuad Painter MD [facility] [address] [place] [address] 12/16/2015 11:16:53 12/25/2015 09:29:11 Depressive disorder 15749615 F33.1 discussed d/w stressors- -using exercise for diversion Diabetes mellitus 234531 E13.65 reviewed lab and meds--[place]. cont working on diet Serum crea tinine above reference range 703349372 R79.89 reviewed lab--creat up, poss b/c of steroids and NSAID's. will plan on repeating in 1 month--no more nsaid's [id number] Amairani Gilmore MD [facility] [address] [address] 01/20/2016 11:24:11 01/20/2016 16:15:38 Serum creatinine above reference range 274718049 R79.89 will repeat lab---cont off meds [id number] Bridget Trinidad , [facility] [address] [address] 06/07/2016 11:11:39 06/28/2016 12:29:17 Osteoarthritis of knee 568128803 M17.0 ok for surg. needs to try to exercise a bit beofre surg to build up strength and endurance Diabetes mellitus 669639 E13.65 reviewed lab and meds--A1c did go up a bit--is not very active--wi ll work at it. check BS's 3 x wkly and call values in after surg--goal [phone] [id number] RADHA BONILLA NP [facility] [address] [place] [address] 08/08/2016 15:15:39 08/31/2016 16:04:32 Depressive disorder 99440701 F33.1 - Symptoms worsening - PHQ-9 indicates moderately severe depression - Will increase sertraline - No SI/HI - RTC in 6 months Essential hypertension 71413297 I10 - BP within goal range at 130/60 - No red flag symptoms - Labs ordered - Discussed diet and exercise - RTC in 6 months Diabetes mellitus 450209 09 E13.65 - Will check labs - Continue metformin and glipizide - Samples for Januvia given - will RX, but patient concerned with cost - Needs new meter - Discussed diet and exercise - RTC in 6 months Hyperlipidemia 60475861 E78.5 - Will check labs - Currently taking rosuvastat in - continue same - RTC in 6 months Fatigue 09065819 R53.83 - Likely attributab le to depression , but will check TSH and Vit D Osteoarthr itis of knee 837261817 M17.12 - 5 weeks post-opera tive - Takes [place] PRN for pain per ortho [id number] Amairani Gilmore MD [address] [address] 01/19/2017 14:16:50 01/23/2017 15:36:23 Depressive disorder 45452829 F33.1 - Stable, controlled - Currently takes sertraline 100mg daily - tolerating well - continue same - Discussed healthy ways to deal with stressors - RTC in 6 months Essential hypertension 19152125 I10 - BP within goal range at 120/60 - No red flag symptoms - Labs ordered today - last lab 08/2016 - Currently takes lisinopril 10mg daily - continue same - Discussed diet and exercise regimens - RTC in 6 months with lab prior Diabetes mellitus 872425 09 E11.9 - Last lab 08/2016 - will repeat labs prior to upcoming surgery - Currently taking glipizide 20mg daily, januvia 100mg daily, and metformin 850mg BID - continue same - Takes a daily statin - Encouraged annual eye exam - RTC in 6 months with lab prior Pre-surger y evaluation 094418408 Z01.818 - Right knee replacemen t - Planned for 03/06/[address] Mackey - Patient is an acceptable risk for surgery medically - No form provided for completion - RTC as needed [id number] Amairani Gilmore MD [address] [address] 07/06/2017 14:17:44 07/13/2017 16:20:24 Adult health examination 920188108 Z00.00 - No pap >65 years - Mammogram ordered today - Bone density referral placed today - Last colonoscop y 08/2014 - Tdap up to date Bladder mu scle dysfunction - overactive 273632643 N32.81 - Sudden urge to void - Discussed conservati ve management vs. medication - Will start with bladder training - May add medication in future - RTC as needed Screening for malignant neoplasm of breast 582096780 Z12.31 - Routine screening mammogram Essential hypertension 08438866 I10 - BP at goal range today at 110/60 - No red flag symptoms - Currently taking lisinopril 10mg daily - continue same - Lab ordered today - RTC in 6 months Diabetes mellitus 468970 09 E11.9 - Lab ordered today - Currently taking glipizide 20mg daily, januvia 100mg daily, and metformin 1700mg once daily - Patient is on a statin and ACEI - Needs monofilame nt exam - Encouraged annual eye exam - patient to schedule - Diet and exercise regimens discussed - RTC in 6 months with lab prior Mixed hyperlipidemia 267 056597 E78.2 - Lab ordered today - Currently takes rosuvastat in 5mg daily - continue same - RTC in 6 months with lab prior Weight gain 1152460 R63. 5 - Will check lab - Likely due to recent poor appetite and lack of activity - Discussed BMI and diet and exercise regimens Screening for osteoporosis 887556861 Z13.820 - Routine screening bone density exam Allergic rhinitis 311402 04 J30.9 - Takes cetirizine daily - continue same - Refilled today Body mass index 40+ - severely obese 681499098 Z68.41 - BMI 44.3 - Diet and exercise regimens discussed - Encouraged avoiding ETOH and poor food choices [id number] GLENN Morgan NP [facility] [address] [place] [address] 08/02/2017 10:09:30 08/11/2017 11:13:56 Upper respiratory infection 00838485 J06.9 Rapid strep negative. Start oral antibiotic s and flonase as directed. Saline gargles, ibuprofen, tylenol. F/u prn [id number] Paulina Ruiz MD [facility] [address] [place] [address] 05/22/2018 16:23:54 05/29/2018 10:37:21 Diabetes mellitus 57837832 E11.65 Essential hypertension 38055589 I10 Hyperlipidemia 28660549 E78.2 Depressive disorder 3548 9007 F33.9 Lesion of tongue 4240415 05 K14.9 gets canker sores frequently [id number] Paulina Ruiz MD [address] [address] 01/02/2019 12:14:08 01/03/2019 10:09:25 Low back pain 308539963 M54.5 - Advised that area may be SI joint or sciatica- Will send for xray and also steroid- If xray is normal, will send for PT- Advised of stretching - Continue Ibuprofen as needed- Seek immediate care for loss of bowel or bladder- RTC if symptoms worsen or fail to improve [id number] Paulina Ruiz MD [address] [address] 01/10/2019 15:04:41 01/16/2019 11:59:33 Low back pain 014786529 M54.5 - Advised of stretching and sending for PT- Continue Ibuprofen as needed- Seek immediate care for loss of bowel or bladder- Will call for xray results- RTC if symptoms worsen or fail to improve Abnormal r enal function 12944390 R94.4 - Last CMP showed abnormal renal function- Patient given order to complete in one month Diabetes mellitus 675316 09 E11.9 - Patient stable on Glipizide, Januvia and Metformin- Patient last A1C on 01/03/19 showed well controlled diabetes at 6.8%- Continue medication as prescribed - Will complete foot exam with next visit Essential hypertension 12912809 I10 - Patient stable on Lisinopril - At goal <130/80- Continue as prescribed Depressive disorder 7011 5175 F32.9 - Patient was stable on Sertraline . She reports she has not been taking regularly- She reports she lost a adolfo she was talking to from a heart attack recently and is starting medication again- Denies SI or HI. Seek care for SI or HI- Contact office if medication is not effective Hyperlipidemia 52812824 E78.5 - Patient stable on Rosuvastat in- Continue as prescribed [id number] Paulina Ruiz MD [address] [address] 07/09/2019 10:11:26 07/12/2019 12:10:22 Depression screening 865361266 Z13.31 - Negative depression screening Chronic ki dney disease stage 3 972900373 N18.3 - Patient saw nephrologi st- Next appointmen t scheduled for September- Patient completed renal ultrasound Depressive disorder 3548 9007 F32.9 - Patient was stable on Sertraline - Denies SI or HI. Seek care for SI or HI- Continue as prescribed Diabetes mellitus 359933 09 E11.9 - Patient stable on Glipizide, Januvia and Metformin- Patient last A1C on 01/03/19 showed well controlled diabetes at 6.8%- Continue medication as prescribed - Will complete foot exam with next visit- Patient will complete labs once COVID-19 clears- Discussed weight loss and diet- Discussed healthy BMI Essential hypertension 08494614 I10 - Patient stable on Lisinopril - Continue as prescribed Hyperlipidemia 67105230 E78.5 - Patient stable on Rosuvastat in- Continue as prescribed [id number] Paulina Ruiz MD [facility] [address] [place] [address] 01/08/2020 10:58:51 01/09/2020 11:44:55 Depressive disorder 88127508 F32.9 - Patient was stable on Sertraline - Denies SI or HI. Seek care for SI or HI- Continue as prescribed Chronic ki dney disease stage 3 835347939 N18.30 - Patient sees nephrologi st Essential hypertension 16262820 I10 - Patient stable on Lisinopril - Continue as prescribed - Denies problems with chest pain, SOB, palpitatio ns, edema or dizziness- BP at goal <130/80 Diabetes mellitus 390512 09 E11.9 - Patient stable on Glipizide, Januvia and Metformin- A1C shows controlled diabetes at 6.2%- Continue medication as prescribed - Foot exam normal today- Micro/albu min urine completed today- Discussed weight loss and diet- Discussed healthy BMI- Patient to schedule diabetes eye exam Hyperlipidemia 70656614 E78.5 - Patient stable on Rosuvastat in- Continue as prescribed - Labs will be completed with next visit Morbid obesity 092828473 E66.01 - Patient is swimming 2-3 days a week at the [facility] [id number] Paulina Ruiz, MD [address] [address] 07/13/2020 15:13:05 07/14/2020 10:10:00 Depressive disorder 42234133 F32.9 - Patient stable on Sertraline - [...] prescribed Chronic ki dney disease stage 3 082477523 N18.30 - Patient sees nephrologi st every 6 months Essential hypertension 04064008 I10 - Patient stable on Lisinopril - Continue as prescribed - Denies problems with chest pain, SOB, palpitatio ns, edema or dizziness - BP at goal <130/80 Diabetes mellitus 374352 09 E11.9 - Patient stable on Glipizide, Januvia and Metformin - A1C shows controlled diabetes at 6.9% - Continue medication as prescribed - Foot exam normal today - Micro/albu min urine completed by nephrologi st. Updated copy in chart - Discussed weight loss and diet - Patient to schedule diabetes eye exam Pain in right heel 14781 61078 997055 M79.671 - She reports right heel pain - Exam normal in office today - Has been going on for about 4 months - She denies any injury - Will refer to sales commissions analyst Obesity 212904339 E66.9 - Patient has gained 28 pounds since last office visit - Discussed diet and trying to slowly increase activity - She will be starting to mow grass - Continue with swimming - Discussed trying to walk and increase slowly as back allows Hyperlipidemia 58702836 E78.5 - Patient stable on Rosuvastat in - Continue as prescribed - Fasting labs ordered [id number] Paulina Ruiz MD [facility] [address] [place] [address] 01/12/2021 11:55:09 01/12/2021 19:22:19 Diabetes mellitus 74286070 E11.9 - Patient manages with Glipizide, Januvia, Metformin and Pioglitazo ne- Her A1C is controlled at 6.1%- She is due for eye exam. Discussed scheduling - Foot exam will be completed with next visit- Patient sees a nephrologi st- On GRAHAM inhibitor Essential hypertension 22888512 I10 - Patient manages with Lisinopril - At goal <130/80- Denies problems with chest pain, SOB, palpitatio ns, edema or dizziness Depressive disorder 2918 9001 F32.9 - Patient takes Sertraline as prescribed - She reports she was feeling down so she increased her Sertraline for 150mg- She denies SI or HI- She would like to continue her 150mg for another 4-6 weeks- She will notify office if not effective and we will adjust medication Chronic ki dney disease stage 3 239045131 N18.30 - Patient sees nephrologi st every 6 months Positive s creening for depression on PHQ-9 (Patient Health Questionnaire 9) 3594571348 53851 Z13.89 - Medication adjusted Low back pain 420469371 M54.59 - Patient reports continued low back pain- Previous xray shows severe arthritis- Patient tried PT without relief- Will send to orthopedic doctor Hyperlipidemia 78356114 E78.5 - Patient takes Crestor as prescribed - Last labs were normal Vaccine de clined by patient 6914505013 02 Z28.20 - Patient declines flu and pneumonia vaccines [id number] Rach Noyola-Micheline ward MD [address] [address] 07/13/2021 11:46:10 07/14/2021 08:16:52 Essential hypertension 05805524 I10 - Patient manages with Lisinopril - At goal <130/80- Denies problems with chest pain, SOB, palpitatio ns, edema or dizziness Chronic ki dney disease stage 3 644371840 N18.30 - Patient sees nephrologi st every 6 months Diabetes mellitus 843665 09 E11.9 - Patient manages with Glipizide, Januvia, Metformin and Pioglitazo ne- Last A1C was 6.1%. Order given to patient to complete- Eye exam completed this month with normal results. Patient brought paper to office.- Foot exam normal today- Patient sees a nephrologi st- On GRAHAM inhibitor and statin Lumbar spondylosis 31339 0009 M47.896 - Patient reports continued back pain- She reports previous PT did help- Last xray shows spondylosi s- Will order PT again- Discussed possible orthopedic referral if no improvemen t- Discussed how weight loss can improve back pain Hyperlipidemia 79752138 E78.5 - Patient takes Crestor as prescribed - Last labs were normal- Lab order given to patient Morbid obesity 117609983 E66.01 - Discussed swimming again at the [facility]- Explained that reduction in weight can help with back and knee pain Depression screening 171 Z13.31 - Negative depression screening Depressive disorder 3548 9007 F32.9 - Patient takes Sertraline as prescribed - She reports the medicaton is effective- PHQ9 is normal- She denies SI or HI [id number] Rach ward MD [address] [address] 01/12/2022 11:44:04 01/14/2022 09:01:17 Depressive disorder 20608689 F32.9 - Patient takes Sertraline as prescribed - PHQ9 is mild- Patient did just lose her only sibling about 8 weeks ago- She denies SI or HI Essential hypertension 57888895 I10 - Patient manages with Lisinopril , but has only been taking every other day due to insurance coverage- At goal <130/80- Denies problems with chest pain, SOB, palpitatio ns, edema or dizziness Diabetes mellitus 139604 09 E11.9 - Patient manages with Glipizide [...] Mild. Will repeat with next visit Hyperlipidemia 24977101 E78.5 - Patient takes Crestor as prescribed - She reports her insurance will not cover medication s until Faustina so she has only been taking every other day for the past few months- Fasting labs completed today Obesity 493635883 E66.9 - Lost 33 pounds since last office visit- She has stopped drinking soda and limiting caloric intake [id number] Rach ward MD [address] [address] 08/31/2022 11:40:13 08/31/2022 16:52:27 Chronic kidney disease stage 3 956803456 N18.30 - Patient sees nephrologi st every 6 months. She was started on Furosemide Essential hypertension 00426297 I10 - Patient manages with Lisinopril - At goal <130/80- Denies problems with chest pain, SOB, palpitatio ns, edema or dizziness Depression screening 171 312027 Z13.31 - Mild. Will repeat with next visit Diabetes mellitus 578999 09 E11.9 - Patient manages with Glipizide and Metformin and reports compliance - A1C increased from 6.6% to 7.5%- She has lost 12 more pounds since last visit- Will give 3 more months due to continued weight loss- Patient sees a nephrologi st- Foot exam normal- On GRAHAM inhibitor and statin- F/U 3 months Ankle pain 605040078 M25 .579 - She reports pain and rolling of the right ankle- Will send for xray- Discussed possible PT to strengthen the leg Hyperlipidemia 83948362 E78.5 - Manages with Atorvastat in- Had to switch from Rosuvastat in to Atorvastat in due to cost- Will complete fasting labs with next office visit Morbid obesity 470056419 E66.01 - Has lost 12 pounds since last visit Dry skin dermatitis 2600 44306 L85.3 - Noted to bi-lateral lower legs- Advised to try some Vaseline at night- Avoid scratching area to reduce risk of infection- If no relief, can try Triamcinol one [id number] MD Daphney Roper [address] [address] 11/22/2022 11:40:00 11/22/2022 16:47:33 Diabetes mellitus 39187757 E11.9 - Patient manages with Glipizide and [...] discuss medication changes- F/U 3 months Obesity 918950533 E66.9 - Lost 6 pounds since last visit [id number] SUSHIL PAULSON [facility] [address] [place] [address] 05/10/2023 14:21:43 05/18/2023 11:16:38 Diabetes mellitus 87824716 E11.9 A1C 7.4% (05/2023) 7.2 (11/2022)Sushil mendez manages with Glipizide and Metformin and reports compliance disucssed starting farxiga and or glp1 for better A1C control and improvemen t with obesity/ki dneysFoot exam: 08/2022Eye Exam: given orderStati n: atorvastat in 20mg , compliance ACEi: Lisinopril , compliance pneumonia vaccine: prevnar 20 05/10/2023 Chronic ki dney disease stage 3 420601460 N18.30 - Patient sees nephrologi st every 6 months. She was started on Furosemide and needs refill. understand s to stop hcz CMP: GFR 37, cr 1.4 Essential hypertension 64725064 I10 - Patient manages with Lisinopril - At goal <130/80- Denies problems with chest pain, SOB, palpitatio ns, edema or dizziness Hyperlipidemia 67777993 E78.5 - Manages with Atorvastat in- Had to switch from Rosuvastat in to Atorvastat in due to cost- Will complete fasting labs with next office visit Morbid obesity 611076950 E66.01 BMI 44.4disucs sed GLP1 today for weight and DM management Depression screening 171 930747 Z13.31 - Mild. Will repeat with next visit Atrial fibrillation 4943 6004 I48.91 Chadvasc score 4. Normal RRR on exmadx in ER 03/2023 sent home on eliquis but not able to afford. On review of ER visit echo w/o abnormalit y. will switch to xarelto. I called wellness and available for $10GFR stable per 03/2023 labswill start xarelto Administra tion of pneumococcal vaccine 06530940 Z23 due for prevnar vaccine [id number] SUSHIL PAULSON [facility] [address] [place] [address] 06/20/2023 15:10:54 06/21/2023 20:34:53 Diabetes mellitus 63526687 E11.9 A1C 7.4% (05/2023) 7.2 (11/2022)Sushil mendez [...] pneumonia vaccine: prevnar 20 05/10/2023 Essential hypertension 62700285 I10 - Patient manages with Lisinopril - At goal <130/80- Denies problems with chest pain, SOB, palpitatio ns, edema or dizziness Atrial fibrillation 4943 6004 I48.91 Chadvasc score 4. Normal RRR on examdoing well on xareltoGFR stable per 03/2023 labswill start xarelto Hyperlipidemia 98201351 E78.5 - Manages with Atorvastat in- Had to switch from Rosuvastat in to Atorvastat in due to cost- Will complete fasting labs with next office visit [id number] SUSHIL PAULSON [facility] [address] [place] [address] 07/25/2023 12:04:25 07/25/2023 13:12:21 Essential hypertension 66305867 I10 - Patient manages with Lisinopril - At goal <130/80- Denies problems with chest pain, SOB, palpitatio ns, edema or dizziness Atrial fibrillation 4943 6004 I48.91 Chadvasc score 4. Normal RRR on examdoing well on xareltoGFR stable per 03/2023 labswill start xarelto Hyperlipidemia 47204875 E78.5 - Manages with Atorvastat in- Had to switch from Rosuvastat in to Atorvastat in due to cost- Will complete fasting labs with next office visit Dyspnea on exertion 6084 5006 R06.09 sleeps with 2 pillows under head adn pillow b/w kneesrefus es sleep study Morbid obesity 645573829 E66.01 BMI 45.5 Tachycardia 6171500 R00. 0 did not take metoprolol today [id number] SUSHIL PAULSON [facility] [address] [place] [address] 09/06/2023 16:21:31 09/06/2023 16:57:29 Essential hypertension 58530295 I10 - Patient was taken off Lisinopril - At goal <130/80- Denies problems with chest pain, SOB, palpitatio ns, edema or dizziness Atrial fibrillation 4943 6004 I48.91 Chadvasc score 4. Normal RRR on examdoing well on xareltoGFR stable per 03/2023 labswill start xarelto Hyperlipidemia 30776606 E78.5 - Manages with Atorvastat in- Had to switch from Rosuvastat in to Atorvastat in due to cost- Will complete fasting labs with next office visit Morbid obesity 939338461 E66.01 BMI 45.8 Poor balance 724340834 R 27.8 patient with poor balance that is worsened by lymphedema she was referred to PT Venous sta sis ulcer with edema of right lower leg 0351506715 4559849 L97.919 small bl venous ulcer LE [id number] Darius hanna MD [facility] [address] [place] [address] 10/12/2023 15:06:23 10/12/2023 15:15:19 [id number] Elton Solis MD [facility] [address] [place] [address] 12/12/2023 15:35:02 12/18/2023 09:02:24 Type 2 diabetes mellitus 37481647 E11.9 controlled continue following nephrology continue current medication s Orthostati c hypotension 69870544 I95.1 cut down on lisinopril to 5 mgcontinue half of metoprolol as instructed by cardiology bring in BP log in one weekmainta in adequate fluid intake Obesity 491662036 E66.8 has maintained good weight loss [id number] Elton Solis MD [facility] [address] [place] [address] 04/04/2024 10:39:00 04/04/2024 11:16:47 Diabetes mellitus 00688393 E11.9 Patient denies fam hx of thyroid [...] compliance pneumonia vaccine: prevnar 20 05/10/2023 Obesity 213141006 E66.9 [id number] Elton Solis MD [facility] [address] [place] [address] 06/05/2024 15:08:26 06/05/2024 16:54:04 Adult health examination 302542320 Z00.01 - medication list updated- continue seeing specialist s- BP controlled - continue sertraline Morbid obesity 255266024 E66.01 BMI 44 Screening mammography 24 344654 Z12.31 due for mammogram Depression screening 171 424873 Z13.31 - negative- continue sertraline [id number] Elton Solis MD [facility] [facility] [address] [place] [address] 09/02/2024 12:09:27 09/04/2024 09:48:53 Type 2 diabetes mellitus [id number] E11.9 patient's A1c has worsened since last visit and her kidney function now shows creatinine greater than 1.5. At this time we will stop metformin and she was left a message to see if she is okay starting insulin at this time. She has follow up with nephrology coming up. Impairment of balance 38 [id number] R26.89 Patient is losing balance and does not feel as strong as she used to. This has caused her to avoid walking and leaving the house despite having a walker at home. Her walker does not have a seat and she feels it would be safer for her to have a wheeled walker with a seat so she may sit to take breaks when she feels tired or loses her balance. She also has documented knee osteoarthr itis back from 2016. Health Concerns Section Related Observation LastModified by Organization Detai ls LastModified Time None Recorded Concern Status LastModified by Organization Details LastModified Time None Recorded Advance Directives Directive None Recorded Payers Encounter Date Sequence Insurance Name Policy Number Policy Leo Covered Member ID Leo Member ID Guarantor Name 10/12/2023 1 [place] Jocelyn Norman [id number] Jocelyn Norman 12/12/2023 1 [place] Norman [id number] Jocelyn Norman 12/12/2023 2 AARP (MEDICARE SUPPLEMENT) Jocelyn Norman [id number] Jocelyn Norman 04/04/2024 1 [place] Norman [id number] Jocelyn Norman 04/04/2024 2 [employer] (MEDICARE SUPPLEMENT) Jocelyn Norman [id number] Jocelyn Norman 06/05/2024 1 [place] Norman [id number] Jocelyn Norman 06/05/2024 2 A[employer] (MEDICARE SUPPLEMENT) Jocelyn Norman [id number] Jocelyn Norman 09/02/2024 1 [place] Joc[place] Norman [id number] Jocelyn Norman 09/02/2024 2 A[employer] (MEDICARE SUPPLEMENT) Jocelyn Norman [id number] Jocelyn Norman Notes Date Note Type Note Provider Name and Address Organization Details Recorded Time 12/12/2023 text/html Jocelyn is a 73 YO F pmhxz CKD, Obesity class III, DM here for f/u with czziuj-nl-til Jocelyn states she saw cardiology and was [...] doing well with wrapping. compression socks at [employer] and will wait assistant corporate controller to wrap her legs. SUSHIL PAULSON Attn: Accounting[address] [facility], [place], [address], [facility] 12/13/2023 12:39:06 04/04/2024 text/html Jocelyn is [...] hx pancreatitis. SUSHIL PAULSON Attn: Accounting[address] [facility], [place], [address], [facility] 04/15/2024 19:23:08 06/05/2024 text/html Jocelyn is a 73 YO F pmhxz CKD, anemia, Obesity class III, DM, Afib s/p cardioversion 08/2023 on anticoag here for f/u for DM Anemia: Saw Dr Ayala 05/2024. Labs from February 21 showed hemoglobin 10.6 creatinine 1.2 GFR 44 B12 348 iron 71 saturation 24 ferritin 28. saw improved hgb and will continue iron twice daily and b12 1mg. has f/u in 4 monthsLabs from May 24 showed hemoglobin 11.9 creatinine 1.4 GFR 35 B12 397 iron 95 saturation 30 ferritin 28 cardio: Saw Dr Dunn 2024 for Afib s/p cardioversion 08/2023. lymphedema stable. she is to continue metoprolol and xarelto. she also had chronic HF with preserved LVEF on jardiance and lasix and on lisinopril for htn as well. patient denies losing Balance or having frequent falls. SUSHIL PAULSON Attn: Accounting,[address], [place], [address], [facility] 06/06/2024 08:20:05 09/02/2024 text/html Jocelyn is a 74 YO F pmhxz CKD, anemia, Obesity class III, DM, Afib s/p cardioversion 08/2023 on anticoag here for f/u for DM and c/o of balance loss Jocelyn Is here for diabetes follow-up. has a follow up with Dr. Brown in a few weeks. She does not know when her next cardiology appointment is. She also thinks she has a hematology appointment coming up. She states she is not doing as much as she used to due to trouble walking. She feels like she loses her balance and does not feel as strong as before. She has a regular walker at home which she uses but states she would benefit from a wheeled walker with a seat so she can sit and take breaks. This would allow her to get around easier and more safely. She agrees to start physical therapy at this time SUSHIL PAULSON Attn: Accounting,[address], [place], [address], [facility] 09/03/2024 14:23:24 OBGyn Episode No OBEpisode recorded.
--- OUTSIDE RECORDS SUMMARY | 2024-09-06 14:53 | XMS_ITS | Clinical Summary ---
Author Organization [facility] Address [address] [place] [address] Phone Care Team Providers Care Talent Coordinator Name Role Phone TarikrosiobirandaBridget ENGINE WATCHMAN Primary Care Provider [phone] Allergies Active Allergy Reactions Criticality Noted Date [...] on file Legal Sex Female 9:18 AM COMPOUNDING SCALER Gender Identity Not on file Sexual Orientation Not on file Last Filed Vital Signs Vital Sign Reading Time Taken Comments Blood Pressure 150/68 03/09/2017 7:45 AM COMPOUNDING SCALER Pulse 105 03/08/2017 10:53 PM COMPOUNDING SCALER Temperature 37.3 C (99.2 F) 03/09/2017 7:45 AM COMPOUNDING SCALER Respiratory Rate 18 03/09/2017 7:45 AM COMPOUNDING SCALER Oxygen Saturation 95% 03/09/2017 7:45 AM COMPOUNDING SCALER Inhaled Oxygen Concentration - - Weight 115.7 kg (255 lb) 03/06/2017 2:20 PM COMPOUNDING SCALER Height 167.6 cm (5' 6) 03/06/2017 2:20 PM COMPOUNDING SCALER Body Mass Index 41.16 03/06/2017 2:20 PM COMPOUNDING SCALER Plan of Treatment Health Maintenance Due Date Last Done Comments Hepatitis C Virus (HCV) Screening 1950 TdaP Immunization 1950 Colonoscopy 1994 Colorectal Cancer Screening 1994 Cologuard 07/16/1999 Immunochemical Fecal Occult Blood 07/16/1999 Pneumococcal Immunization (5 0+ years) (1 of 1 - PCV) 07/16/1999 Zoster Immunization (1 of 2) 07/16/1999 SARS-COV-2 Immunization (2023-25 season) 2023 Respiratory Syncytial Virus (RSV) Immunization (Adult) (1 - 1-dose 75+ series) 2024 Influenza Immunization (Seas on Ended) 2024 Hepatitis B Immunization Aged Out No longer eligible based on patient's age to complete this topic Human Papillomavirus (HPV) Immunization Aged Out No longer eligible b ased on patient's age to complete this topic Meningococcal Immunization (ACWY) Aged Out No longer eligible based on patient's age to complete this topic Rotavirus Immunization Aged Out No lo nger eligible based on patient's age to complete this topic Medical Devices Implanted Type Area Radio Personality Device Identifier Shelf Expiration Date Model / Serial / Lot Cmnt Bn Endrn Sst Gnta 40gm Hvisc - [id number] Implanted:Qty: 2 on 07/04/2016 by Rian Foss MD at [facility] IMPLANT Left: Knee JNJ / [employer] 01/31/2018 [id number] / / [id number] Cmnt Bn Cmw2 20gm Strl - [id number] Implanted:Qty: 1 on 07/04/2016 by Rian Foss MD at [facility] IMPLANT Left: Knee [employer]NJ / [employer] 08/31/2017 [id number] / / [id number] Cmpnt Ptlr 38mm Medialized Dome Attune - [id number] Implanted:Qty: 1 on 07/04/2016 by Rian Foss MD at [facility] IMPLANT Left: Knee [employer] / [employer] 01/31/2021 [id number] / / [id number] Cmnt Bn Sst Gnta Hvisc 40gm - [id number] Implanted:Qty: 1 on 03/06/2017 by Rian Foss MD at [facility] IMPLANT Right: Knee [employer] / [employer] 12/31/2017 [id number] / [id number] / [id number] Cmnt Bn Sst Gnta Hvisc 40gm - [id number] Implanted:Qty: 1 on 03/06/2017 by Rian Foss MD at [facility] IMPLANT Right: Knee [employer]NJ / [employer] 01/31/2018 [id number] / [id number] / [id number] Dome Ptlr 35mm Attune Kn Aox Cmnt - [id number] Implanted:Qty: 1 on 03/06/2017 by Rian Foss MD at [facility] IMPLANT Right: Knee JNJ / [employer] 12/01/2021 [id number] / [id number] / [id number] Attune Tibial Base Size 6 Cemented Implanted:Qty: 1 on 07/04/2016 by Rian Foss MD at [facility] Left: Knee [employer] 03/02/2026 [id number] / / [id number] Attune Tibial Insert Size 6, 8mm Implanted:Qty: 1 on 07/04/2016 by Rian Foss MD at [facility] Left: Knee [employer] 10/31/2017 [id number] / / [id number] Attune Femoral Size 6, Left Cemented Implanted:Qty: 1 on 07/04/2016 by Rian Foss MD at [facility] Left: Knee [employer] 03/02/2026 [id number] / / [id number] Attune Tibial Base Implanted:Qty: 1 on 03/06/2017 by Rian Foss MD at [facility] Right: Knee [employer] 07/01/2026 [id number] / [id number] / [id number] Attune Knee System Revision Cemented Stem Implanted:Qty: 1 on 03/06/2017 by Rian Foss MD at [facility] Right: Knee [employer] 12/31/2026 [id number] / [id number] / [id number] Attune Femoral Posterior Stabilized Implanted:Qty: 1 on 03/06/2017 by Rian Foss MD at [facility] Right: Knee [employer] 07/01/2026 1504 / 150 / [id number] Attune Tibial Insert Implanted:Qty: 1 on 03/06/2017 by Rian Foss MD at [facility] Right: Knee [employer] 11/30/2021 [id number] / 1516-40-607 / [id number] Insurance [facility] MEDICARE Care Teams Talent Coordinator Relationship Specialty Start Date End Date Bridget Trinidad APRN [address] [place] [address] PCP - General Advanced Practice Nurse 06/17/16
--- OUTSIDE RECORDS SUMMARY | 2024-09-06 14:53 | XMS_ITS | Clinical Summary ---
Author Organization [address] Address [address] [place] [address] Care Team Providers Care Power Saw Operator Name Role Phone Rosanne Emerson Primary Care [...] meals 8 Active glipiZIDE (GLUCOTROL) 10 mg tabletIndicatio ns:type 2 diabetes mellitus 8 Active atorvastatin (LIPITOR) 40 mg tablet Take 1 tablet (40 mg total) by mouth daily Active furosemide (LASIX) 20 mg tablet Take 2 tablets (40 mg total) by mouth daily Active Xarelto 20 mg tablet Take 1 tablet (20 mg total) by mouth daily with dinner 4 Active lisinopriL (PRINIVIL,ZESTR IL) 10 mg tablet Take 0.5 tablets (5 mg total) by mouth daily Active ferrous sulfate (iron) 325 mg (65 mg of elemental iron) tabletIndicatio ns:Iron Deficiency Anemia Take 2 tablets (650 mg [...] mouth daily 90 tablet 3 5 Active empagliflozin (JARDIANCE) 10 mg tabletIndicatio ns:heart failure associated with type 2 diabetes mellitus Take 1 tablet (10 mg total) by mouth daily 90 tablet 3 5 Active potassium chloride ER (KLOR-CON) 20 mEq CR tablet Take 1 tablet (20 mEq total) by mouth daily 30 tablet 11 4 08/25/19 25 Active Problems Problem Noted Date Diagnosed Date Chronic heart failure with preserved ejection fr action 05/02/2024 Lymphedema 05/02/2024 Syncope and collapse 11/07/2023 JULIO C (obstructive sleep apnea) 10/16/2023 Atrial fibrillation 07/28/2023 Chronic anticoagulation 07/28/2023 Hyperlipidemia 07/28/2023 Morbid obesity 07/28/2023 Acute sinusitis 07/25/2017 Depressive disorder 07/25/2017 Diabetes mellitus 07/25/2017 Hypertension 07/25/2017 Lesion of tongue 07/25/2017 Serum creatinine raised 07/25/2017 Primary osteoarthritis of left knee 07/05/2016 Encounters Date Type Department Care Team Description 08/21/2024 11:10 AM CDT - 08/21/2024 11:59 PM CDT Hospital Encounter [facility] Imaging and Radiology [address] [place] [address] Screening mammogram, encounter for; Encounter for screening mammogram for malignant neoplasm of breast Discharge Disposition: Discharge to home or self care 06/24/2024 Telephone [facility] Medical [facility] Cardiology [address] [facility] [address] [place] [address] Mitch Dunn MD from Last 3 Months Surgical History Surgery Date Site/Laterality Comments CARPAL TUNNEL RELEASE Carpal tunnel release KNEE ARTHROPLASTY Knee replacement BREAST FIBROADENOMA SURGERY Right Unsure of year. Maybe close to 2009 Medical History Medical History Date Comments Type 2 diabetes mellitus (HCC) D iabetes type 2 Hyperlipidemia Hyperlipidemia Hypertension Hypertension Osteoarthritis Osteoarthritis Depression Depression Family History Medical History Relation Name Comments Pancreatic cancer Brother Breast cancer Maternal cousin Cancer Other Family history of Cancer, unknown; Relation Name Status Comments Brother Maternal cousin Other Social History Tobacco Use Types Packs/Day Years Used Date Smoking Tobacco: Former Smokeless Tobacco: Never Tobacco Cessation:Counseling Given: Not Answered Comments Unknown Sex and Gender Information Value Date Recorded Sex Assigned at Not on file Legal Sex Female 7:43 PM REMEDIATION PROJECT ENGINEER Gender Identity Not on file Sexual Orientation Not on file Obstetrics History Last Filed Vital Signs Vital Sign Reading Time Taken Comments Blood Pressure 128/56 05/02/2024 3:43 PM REMEDIATION PROJECT ENGINEER Pulse 64 05/02/2024 3:43 PM REMEDIATION PROJECT ENGINEER Temperature - - Respiratory Rate - - Oxygen Saturation 96% 05/02/2024 3:43 PM REMEDIATION PROJECT ENGINEER Inhaled Oxygen Concentration - - Weight 118.8 kg (262 lb) 05/02/2024 3:43 PM REMEDIATION PROJECT ENGINEER Height 165.1 cm (5' 5) 05/02/2024 3:43 PM REMEDIATION PROJECT ENGINEER Body Mass Index 43.6 05/02/2024 3:43 PM REMEDIATION PROJECT ENGINEER Plan of Treatment Health Maintenance Due Date [...] Td or Tdap) 02/06/2022 02/07/2012 Covid-19 Vaccine (2023-2 5 season) 2023 01/12/2021, 07/03/2020, 06/21/2020, Additional history exists Lipid Panel 07/27/2024 07/28/2023 Influenza Vaccine (Season Ended) 2024 Breast Cancer Screening-Mammogram Discontinued 08/21/2024, 03/09/2023, 03/09/2023, Additional history exists Procedures Procedure Name Priority Date/Time Associated Diagnosis Comments SCREENING MAMMOGRAM BILATERAL W KODI Schedule Routine, Read Routine (OP Routine) 08/21/2024 11:30 AM CDT Encounter for screening mammogram for malignant neoplasm of breast POCT LIPID PANEL Routine 07/28/2023 10:3 2 AM CDT Hyperlipidemia, unspecified hyperlipidemia type from Last 3 Months or Most Recently Relevant to Health Maintenance Results * Screening Mammogram Bilateral W [place]odi (08/21/2024 11:30 AM CDT) Anatomical Region Laterality Modality Breast Bilateral Mammography Impressions 08/21/2024 2:31 PM CDT Bilateral No evidence of malignancy in either breast. OVERALL BI-RADS FINAL ASSESSMENT: 1 - Negative RECOMMENDATION: Recommend bilateral annual screening mammography. Narrative 08/21/2024 2:31 PM CDT EXAMINATION: Screening Mammogram Bilateral W Kodi: 08/21/2024 COMPARISON: Relevant prior studies available at the time of interpretation were reviewed. TECHNIQUE: Mammography was performed with 2D and digital breast tomosynthesis (DBT) images. CAD was utilized. BREAST PARENCHYMAL COMPOSITION: There are scattered areas of fibroglandular density. FINDINGS: Bilateral There is no suspicious mass, calcification, or architectural distortion in either breast. us Rosanne QUINONEZ IMG MAMMO PROCEDURES Fin al Result * POCT lipid panel (07/28/2023 10:32 AM CDT) Cholesterol, POC <100 mg/dL HDL, POC 34 mg/dL Triglycerides, POC 87 mg/dL LDL Cholesterol POC 47 mg/dL Chol/HDL Ratio, POC N/A Non-HDL Cholesterol, POC N/A mg/dL Cholesterol Total, POC <100 mg/dL Capillary blood 07/28/2023 1 0:32 AM CDT Mitch Dunn MD POINT OF CARE TEST ORDDiego CASTANEDA Final Result from Last 3 Months or Most Recently Relevant to Health Maintenance Insurance [facility] MEDICARE [facility] Care Teams Power Saw Operator Relationship Specialty Start Date End Date Rosanne Emerson PA PCP - General Physician Critical Care Nurse Practitioner 08/25/23
--- OUTSIDE RECORDS SUMMARY | 2024-09-06 14:53 | XMS_ITS | Referral Summary ---
Author Organization [address] Address [address] [place] [address] Care Team Providers Care Check Writer Salesperson Name Role Phone Rosanne Emerson Primary Care Provider + Encounters Date Type Department Care Team Description 08/21/2024 11:10 AM CDT - 08/21/2024 11:59 PM CDT Hospital Encounter [facility] Imaging and Radiology [address] [place] [address] Screening mammogram, encounter for; Encounter for screening mammogram for malignant neoplasm of breast Discharge Disposition: Discharge to home or self care 06/24/2024 Telephone [facility] Cardiology [address] [place] [address] Mitch Dunn MD from Last 3 Months Allergies Active Allergy [...] on file Legal Sex Female 7:43 PM LAND MANAGEMENT FORESTER Gender Identity Not on file Sexual Orientation Not on file Last Filed Vital Signs Vital Sign Reading Time Taken Comments Blood Pressure 128/56 05/02/2024 3:43 PM LAND MANAGEMENT FORESTER Pulse 64 05/02/2024 3:43 PM LAND MANAGEMENT FORESTER Temperature - - Respiratory Rate - - Oxygen Saturation 96% 05/02/2024 3:43 PM LAND MANAGEMENT FORESTER Inhaled Oxygen Concentration - - Weight 118.8 kg (262 lb) 05/02/2024 3:43 PM LAND MANAGEMENT FORESTER Height 165.1 cm (5' 5) 05/02/2024 3:43 PM LAND MANAGEMENT FORESTER Body Mass Index 43.6 05/02/2024 3:43 PM LAND MANAGEMENT FORESTER Plan of Treatment Not on file Procedures [...] architectural distortion in either breast. us Rosanne QIUNONEZ IMG MAMMO PROCEDURES Fin al Result * POCT lipid panel (07/28/2023 10:32 AM CDT) Cholesterol, POC <100 mg/dL HDL, POC 34 mg/dL Triglycerides, POC 87 mg/dL LDL Cholesterol POC 47 mg/dL Chol/HDL Ratio, POC N/A Non-HDL Cholesterol, POC N/A mg/dL Cholesterol Total, POC <100 mg/dL Capillary blood 07/28/2023 1 0:32 AM CDT [facility] Leonides Dunn MD POINT OF CARE TEST SARAVANAN CASTANEDA Final Result from Last 3 Months or Most Recently Relevant to Health Maintenance Insurance [facility] MEDICARE [facility] Care Teams Check Writer Salesperson Relationship Specialty Start Date End Date Rosanne Emerson PA PCP - General Physician Continuing Education Instructor 08/25/23
[2024-09-06 15:14] LABS: Hematocrit 39.5 % (37.0-47.0); Hemoglobin 12.4 g/dL (12.0-15.0); Mean Corpuscular HGB Conc 31.4 g/dl (32-36); Mean Corpuscular Hemoglobin 29.8 pg (26-34); Mean Platelet Volume 10.6 fl (7.4-10.4); Platelet Count Result 204 k/mm3 (150-375); Red Blood Count 4.16 M/mm3 (4.2-5.4); Red Cell Distribution Width 13.4 % (11.5-14.5); White Blood Count 6.6 K/mm3 (4.5-10.0)
[2024-09-06 15:30] LABS: Albumin Level 4.1 g/dL (3.5-5.1); Anion Gap 8 mmol/L (4-12); Blood Urea Nitrogen 22 mg/dL (7-17); Calcium 9.1 mg/dL (8.4-10.2); Carbon Dioxide 26 mmol/L (22-30); Chloride 105 mmol/L (98-107); Estimated Glomerular Filt Rate 38; Glucose 172 mg/dL (65-110); Phosphorus 3.8 mg/dL (2.5-4.5); Potassium 5.5 mmol/L (3.4-5.0); Sodium 139 mmol/L (137-145)
[2024-09-06 15:32] LABS: Creatinine Urine 60.1 mg/dL; Total Protein Urine Random 8 mg/dL; Ur Ttl Prot Creatinine Ratio 0.13 mg/mg (0-0.20)
[2024-09-06 15:43] LABS: Parathyroid Intact 97.2 pg/mL (14.5-75.2)
[2024-09-06 15:47] LABS: Vitamin D 25 Hydroxy 40.1 ng/mL
== END 2024-09-06 14:50 | disposition home or self-care (01) ==
LOC: ANHLAB 14:51
PROVIDERS: PCP Physician Assistant; Visit Provider Internal Medicine Nephrology
DX: E21.1 Secondary hyperparathyroidism, not elsewhere classified (principal); N18.32 Chronic kidney disease, stage 3b; D64.9 Anemia, unspecified
CPT/HCPCS: 36415; 80069; 82306; 82570; 83970; 84156; 85027

== ENCOUNTER 2024-09-16 12:49 | Inpatient (IN) | payer MEDICARE, SELFPAY ==
[2024-09-16] VITALS (25 sets, daily range): BP systolic 100–134; BP diastolic 60–103; PULSE 77–141; RESP 13–28; TEMP 36.6–36.9; O2SAT 96–100; BMI 45.9
--- NOTE | ~2024-09-16 | XR_ITS ---
EXAMINATION: XR chest 2V DATE: 09/16/2024 13:48 INDICATION: Tachycardia TECHNIQUE: PA and lateral views of the chest were obtained. COMPARISON: Chest radiograph and CT dated 07/27/2023 FINDINGS: The lungs are now clear with no focal airspace opacities, pulmonary edema, pleural effusion or pneumo thorax. The cardiomediastinal silhouette is normal. Visualized bones and soft tissues are unremarkabl e. IMPRESSION: 1. No acute cardiopulmonary disease. Reviewed, dictated and finalized at location A.
--- NOTE | 2024-09-16 12:52 | ECG_ITS ---
Test Date: 2024-09-16 12:59:00 Measurements Intervals [place] Rate: 131 P: 0 OH: 0 QRS: 32 QRSD: 88 T: 76 QT: 293 QTc: 433 Interpretive Statements ATRIAL FIBRILLATION WITH RAPID VENTRICULAR RESPONSE BORDERLINE ST-T WAVE ABNORMALITY- INF/HIGH LAT LEADS BASELINE ARTIFACT- I, II, III, AVR, AVL, AVF ABNORMAL ECG No previous ECG available for comparison Electronically Signed On 09-16-2024 13:05:29 CDT by Rigo Johnson D.O.
[2024-09-16 13:09] LABS: Basophils Absolute Auto 0.1 K/mm3 (0.0-0.1); Basophils Percent Auto 0.9 % (0.2-1.2); Eosinophils Absolute Auto 0.3 K/mm3 (0-0.3); Eosinophils Percent Auto 4.3 % (0-4.4); Hematocrit 41.7 % (37.0-47.0); Hemoglobin 13.3 g/dL (12.0-15.0); Immature Granulocyte Absolute 0.03 K/mm3 (0.00-0.031); Immature Granulocyte Percent A 0.4 % (0-0.5); Lymphocytes Absolute Auto 2.36 K/mm3 (0.9-3.2); Lymphocytes Percent Auto 31.8 % (18.3-44.2); Mean Corpuscular HGB Conc 31.9 g/dl (32-36); Mean Corpuscular Hemoglobin 29.8 pg (26-34); Mean Corpuscular Volume 93.3 fl (80-100); Mean Platelet Volume 10.6 fl (7.4-10.4); Monocytes Absolute Auto 0.7 K/mm3 (0.1-0.6); Neutrophils Absolute Auto 3.9 K/mm3 (1.3-6.7); Neutrophils Percent Auto 52.6 % (45.5-73.1); Platelet Count Result 234 k/mm3 (150-375); Red Blood Count 4.47 M/mm3 (4.2-5.4); Red Cell Distribution Width 13.7 % (11.5-14.5); White Blood Count 7.4 K/mm3 (4.5-10.0)
[2024-09-16] MEDS: SODIUM CHLORIDE 0.9% IV 500 ML 999 ML IV CONT (13:13)
[2024-09-16] MEDS: METOPROLOL TARTRATE INJ 5 MG/5 ML VIAL IV PUSH (13:14)
[2024-09-16 13:18] LABS: Alanine Aminotransferase 25 U/L (6-35); Albumin Level 4.2 g/dL (3.5-5.1); Alkaline Phosphatase 90 U/L (38-126); Anion Gap 9 mmol/L (4-12); Aspartate Amino Transferase 39 U/L (14-36); Bilirubin,Total 0.6 mg/dL (0.2-1.3); Blood Urea Nitrogen 29 mg/dL (7-17); Calcium 9.7 mg/dL (8.4-10.2); Carbon Dioxide 23 mmol/L (22-30); Chloride 105 mmol/L (98-107); Estimated CRCL calculation 38 ml/min; Estimated Glomerular Filt Rate 34; Glucose 283 mg/dL (65-110); Lipase 198 U/L (23-300); Potassium 5.1 mmol/L (3.4-5.0); Sodium 137 mmol/L (137-145)
[2024-09-16 13:25] LABS: INR 1.8; Prothrombin Time 20.8 Seconds (11.1-14.7)
[2024-09-16 13:27] LABS: Partial Thromboplastin Time 34.3 Seconds (22.3-36.8)
[2024-09-16 13:30] LABS: NT Pro B Type Natriuretic Pept 5080 pg/mL (19.9-100); Troponin I < 0.012 ng/mL (0.000-0.034)
--- OUTSIDE RECORDS SUMMARY | 2024-09-16 13:40 | XMS_ITS ---
Author Name Auto Generated, Auto Generated Organization [facility] ices Address [address] [facility] [place] [address] Phone [phone] Care Team Providers Care Celluloid Trimmer Name Role Phone Zain Smith Unavailable Functional [...] Daily constipation MonMar 10 09:00:00 EST 2016Mar 15:00:00 EST 2016 rosuvastatin 5 mg tablet 5mg [...] 2016 * End Date: * Text: * director digital catalogue (current) use of aspirin* Code: * Start [...]
--- OUTSIDE RECORDS SUMMARY | 2024-09-16 13:40 | XMS_ITS | Encounter Summary ---
Author Organization [facility] Healthcare Address [address] [place] [address] Care Team Providers Care Machine Assistant Name Role Phone Rosanne Emerson Primary Care Provider + Encounter Details Date Type Department Care Team (Late st Contact Info) Description 09/16/2024 Telephone [facility] Medical Group Cardiology [address] [place] [address] Ashanti Dove NP [address] [place] [address] Social History Tobacco Use Types Packs/Day Years Used Date Smoking Tobacco: Former Smokeless Tobacco: Never Comments Unknown Sex and Gender Information Value Date Recorded Sex Assigned at Not on file Legal Sex Female 7:43 PM MICROSOFT DYNAMICS AX CONSULTANT Gender Identity Not on file Sexual Orientation Not on file documented as of this encounter Miscellaneous Notes * Telephone Encounter - Ashanti Dove NP - 09/16/2024 12:31 PM CDT I spoke to Dr. Brown and advised patient to be sent to ER. * Telephone Encounter - Apurva Patle - 09/16/2024 11:[address] Brown requesting a call back from CT regarding the pt she is there right now with him and herHR is 150 and her pressure is just okay he said she doesn't look good please advise thank you Contact: documented in this encounter Plan of Treatment Not on file documented as of this encounter Visit Diagnoses Not on filedocumented in this encounter Care Teams Machine Assistant Relationship Specialty Start Date End Date Rosanne Emerson PA PCP - General Physician [place] 08/25/23 documented as of this encounter
--- OUTSIDE RECORDS SUMMARY | 2024-09-16 13:40 | XMS_ITS | Clinical Summary ---
Author Organization [address] Address [address] [place] [address] Care Team Providers Care Tenderizer Tender Name Role Phone Rosanne Emerson Primary Care [...] Encounters Date Type Department Care Team Description 09/16/[address] [facility] Medical Group Cardiology [address] [facility] [address] [place] [address] Ashanti Dove NP 08/21/2024 11:10 AM CDT - 08/21/2024 11:59 PM CDT Hospital Encounter [facility] Imaging and Radiology [address] [place] [address] Screening mammogram, encounter for; Encounter for screening mammogram for malignant neoplasm of breast Discharge Disposition: Discharge to home or self care 06/24/[address] [facility] Medical Group Cardiology [address] [place] [address] Mitch Dunn MD from Last [...] on file Legal Sex Female 7:43 PM COOLER WORKER Gender Identity Not on file Sexual Orientation Not on file Obstetrics History Last Filed Vital Signs Vital Sign Reading Time Taken Comments Blood Pressure 128/56 05/02/2024 3:43 PM COOLER WORKER Pulse 64 05/02/2024 3:43 PM COOLER WORKER Temperature - - Respiratory Rate - - Oxygen Saturation 96% 05/02/2024 3:43 PM COOLER WORKER Inhaled Oxygen Concentration - - Weight 118.8 kg (262 lb) 05/02/2024 3:43 PM COOLER WORKER Height 165.1 cm (5' 5) 05/02/2024 3:43 PM COOLER WORKER Body Mass Index 43.6 05/02/2024 3:43 PM COOLER WORKER Plan of Treatment Health Maintenance Due Date [...] Td or Tdap) 02/06/2022 02/07/2012 Covid-19 Vaccine ( - 2023-2 5 season) 2023 [...] Recently Relevant to Health Maintenance Insurance MEDICARE [facility] MEDICARE [facility] Care Teams Tenderizer Tender Relationship Specialty Start Date End Date Rosanne Emerson PA PCP - General Physician Lace Tearing Supervisor 08/25/23
--- OUTSIDE RECORDS SUMMARY | 2024-09-16 13:40 | XMS_ITS | Clinical Summary ---
Author Organization [facility] Address [address] [place] [address] Phone Care Team Providers Care Gas Substation Operator Name Role Phone Unavailable Primary Care Provider [...] Comments Blood Pressure 97/51 05/27/2024 2:14 PM RULING TECHNICIAN Pulse 53 05/27/2024 2:14 PM RULING TECHNICIAN Temperature 36.2 C (97.1 F) 05/27/2024 2:14 PM RULING TECHNICIAN Respiratory Rate 15 05/27/2024 2:14 PM RULING TECHNICIAN Oxygen Saturation 97% 05/27/2024 2:14 PM RULING TECHNICIAN Inhaled Oxygen Concentration - - Weight 120.2 kg (265 lb) 05/27/2024 2:14 PM RULING TECHNICIAN Height 165.1 cm (5' 5) 11/17/2023 10:49 AM CDT Body Mass Index 44.1 11/17/2023 10:49 AM CDT Plan of Treatment Upcoming Encounters Date Type Department Care Team (Late st Contact Info) Description 09/26/2024 2:15 PM CDT Office Visit [facility] Oncology and Hematology - [place] [address] [facility] [address] [place] [address] Gurjit Ayala MD [address] [facility] [address] [place] [address] Health Maintenance Due Date Last [...] Comments HEMOGLOBIN A1C Routine 03/13/2017 7:28 AM RULING TECHNICIAN Encounter for general adult medical examination without abnormal findings from Last 3 Months or Most Recently Relevant to Health Maintenance Results * (ABNORMAL) HEMOGLOBIN A1C (03/13/2017 7:28 AM RULING TECHNICIAN) HEMOGLOBIN A1C 6.3(H) 4.0 - 6.0 % 03/13/2017 10:54 AM RULING TECHNICIAN [facility] LABOR[facility]ORY SERVICES [facility] EST. AVG GLUCOSE, A1C 134 mg/dL 03/13/2017 10:54 AM RULING TECHNICIAN [facility] LABOR[facility] SERVICES [facility] Blood Venipuncture / Unknown 03/13/2017 7:28 AM RULING TECHNICIAN 03/13/2017 9:18 AM RULING TECHNICIAN us Zain Smith MD CHEMISTRY ORDERABLES Final R esult [facility] SERVICES [facility] CLIA# [id number] [address] [place] [address] from Last 3 Months or Most Recently Relevant to Health Maintenance Insurance MEDICARE PART A AND B [facility] [id number]
--- OUTSIDE RECORDS SUMMARY | 2024-09-16 13:40 | XMS_ITS | Encounter Summary ---
Author Organization [facility] Address [address] [place] [address] Care Team Providers Care Rn Perinatal Name Role Phone Unavailable Primary Care Provider Unavailabl e Encounter Details Date Type Department Care Team (Late st Contact Info) Description 03/13/2017 Lab Requisition [facility] Services [address] [facility] [address] [place] [address] Zain Smith MD [address] [place], [place] [id number] Encounter for general adult medical examination without [...] Description 09/26/2024 2:15 PM CDT Office Visit [facility] Oncology and Hematology - [place] [address] [place] [address] Gurjit Ayala MD [address] [facility] [address] [place] [address] documented as of this encounter Procedures Procedure Name Priority Date/Time Associated Diagnosis Comments CBC WITH DIFFERENTIAL Routine 03/13/2017 7:28 AM VALUE ANALYSIS COORDINATOR Encounter for general adult medical examination without abnormal findings PTT Routine 03/13/2017 7:28 AM VALUE ANALYSIS COORDINATOR Encounter for general adult medical examination without abnormal findings PROTIME-INR Routine 03/13/2017 7:28 AM VALUE ANALYSIS COORDINATOR Encounter for general adult medical examination without abnormal findings HEMOGLOBIN A1C Routine 03/13/2017 7:28 AM VALUE ANALYSIS COORDINATOR Encounter for general adult medical examination without abnormal findings documented in this encounter Results * PTT (03/13/2017 7:28 AM VALUE ANALYSIS COORDINATOR) PTT 33.4 24.4 - 36.4 seconds 03/13/2017 10:58 AM VALUE ANALYSIS COORDINATOR [facility] [employer] [facility] Comment: PTT Therapeutic Range: Heparin Level PTT (seconds) <0.10 units/mL <53 0.10 - 0.30 units/mL 53 - 67 0.30 - 0.70 units/mL* 67 - 95* 0.70 - 1.00 units/mL 95 - 116 *corresponds to therapeutic range for unfractionated heparin Blood Venipuncture / Unknown 03/13/2017 7:28 AM VALUE ANALYSIS COORDINATOR 03/13/2017 9:18 AM VALUE ANALYSIS COORDINATOR Zain Smith MD HEMATOLOGY ORDERABLES Final Result [facility]# [id number] [address] [place] [address] * PROTIME-INR (03/13/2017 7:28 AM VALUE ANALYSIS COORDINATOR) PROTIME 13.4 12.7 - 15.1 Seconds 03/13/2017 10:58 AM VALUE ANALYSIS COORDINATOR [facility] [employer] [facility] INR 1.0 0.9 - 1.1 03/13/2017 10:58 AM [facility] [employer] [facility] Blood Venipuncture / Unknown 03/13/2017 7:28 AM VALUE ANALYSIS COORDINATOR 03/13/2017 9:18 AM VALUE ANALYSIS COORDINATOR Narrative [facility] [employer] [facility] - 03/13/2017 10:58 AM VALUE ANALYSIS COORDINATOR INR Therapeutic Range: Adult: 2.0 - 3.0 for pulmonary embolism or prophylaxis against venous thrombosis or systemic embolization. 2.0 - 3.0 for patients with tissue heart valves. 2.5 - 3.5 for patients with mechanical heart valves or post TX. Pediatric (12 years and under): 1.5 - 3.0 Although the target range in children is not well established, INR values of 1.5 - 3.0 are recommended for most patients. Higher values have been used in children with prosthetic cardiac valves and hereditary clotting disorders. (<3 days) therapeutic ranges have not been established. Zain Smith MD HEMATOLOGY ORDERABLES Final Result [employer] LABORATORY SERVICES - [facility] CLIA# [id number] [address] [place] [address] * (ABNORMAL) CBC WITH DIFFERENTIAL (03/13/2017 7:28 AM VALUE ANALYSIS COORDINATOR) WBC 5.0 4.0 - 9.8 K/uL 03/13/2017 10:15 AM [employer] [facility] - [facility] RBC 3.28(L) 4.50 - 5.40 M/uL 03/13/2017 10:15 AM [employer] [facility] - . [facility] HEMOGLOBIN 9.7(L) 13.6 - 16.5 g/dL 03/13/2017 10:15 AM [employer] [facility] - [facility] HEMATOCRIT 30.7(L) 40.0 - 48.0 % 03/13/2017 10:15 AM [employer] [facility] - . [facility] MCV 93.6 82.0 - 99.0 fL 03/13/2017 10:15 AM [employer] [facility] - . [facility] MCH 29.6 27.2 - 32.6 pg 03/13/2017 10:15 AM [employer] [facility] - . [facility] MCHC 31.6 31.5 - 35.5 g/dL 03/13/2017 10:15 AM [employer] [facility] - . [facility] RDW 14.2 11.5 - 14.5 % 03/13/2017 10:15 AM [employer] [facility] - . [facility] RDW-STDEV 48.7 37.1 - 48.7 fL 03/13/2017 10:15 AM [employer] [facility] - . [facility] PLATELETS 261 140 - 350 K/uL 03/13/2017 10:15 AM [email or web address] - [facility] MPV 10.0 9.3 - 12.4 fL 03/13/2017 10:15 AM [facility] [employer] SERVICES - [facility] NEUTROPHILS 33 % 03/13/2017 10:15 AM [facility] [employer] [facility] - [facility] LYMPHOCYTES 43 % 03/13/2017 10:15 AM [facility] [employer] [facility] - [facility] MONOCYTES 15 % 03/13/2017 10:15 AM [facility] [employer] [facility] - [facility] EOSINOPHILS 7 % 03/13/2017 10:15 AM [facility] [employer] [facility] BASOPHILS 0 % 03/13/2017 10:15 AM [facility] [employer] [facility] - [facility] IMMATURE GRANULOCYTES 2 % 03/13/2017 10:15 AM [facility] [employer] [facility] Comment:IG (Immature Granulo cyte) count includes Metamyelocytes, Myelocytes, and Promyelocytes NEUTROPHIL ABSOLUTE 1.68(L) 1.90 - 7.00 K/uL 03/13/2017 10:15 AM [facility] [employer] [facility] - [facility] LYMPHOCYTE ABSOLUTE 2.14 0.70 - 4.50 K/uL 03/13/2017 10:15 AM [facility] [employer] [facility] - [facility] MONOCYTE ABSOLUTE 0.74 0.10 - 1.30 K/uL 03/13/2017 10:15 AM [facility] [employer] - [facility] EOSINOPHIL ABSOLUTE 0.35 0.00 - 0.70 K/uL 03/13/2017 10:15 AM [facility] [employer] - [facility] BASOPHILS ABSOLUTE 0.02 0.00 - 0.20 K/uL 03/13/2017 10:15 AM [facility] [employer] [facility] - [facility] IMMATURE GRANULOCYTES ABSOLUTE 0.10(H) 0.00 - 0.03 K/uL 03/13/2017 10:15 AM [facility] [employer] [facility] Blood Venipuncture / Unknown 03/13/2017 7:28 AM [facility] 03/13/2017 9:18 AM VALUE ANALYSIS COORDINATOR us Zain Smith MD HEMATOLOGY ORDERABLES Final Result [employer] [facility] CLIA# [id number] [address] [place] [address] * (ABNORMAL) HEMOGLOBIN A1C (03/13/2017 7:28 AM VALUE ANALYSIS COORDINATOR) HEMOGLOBIN A1C 6.3(H) 4.0 - 6.0 % 03/13/2017 10:54 AM VALUE ANALYSIS COORDINATOR [facility] LABORATORY SERVICES [facility] EST. AVG GLUCOSE, A1C 134 mg/dL 03/13/2017 10:54 AM VALUE ANALYSIS COORDINATOR [facility] LABORATORY [facility] Blood Venipuncture / Unknown 03/13/2017 7:28 AM VALUE ANALYSIS COORDINATOR 03/13/2017 9:18 AM VALUE ANALYSIS COORDINATOR us Zain Smith MD CHEMISTRY ORDERABLES Final R esult [facility] LABORATORY [facility]# [id number] [address] [place] [address] documented in this encounter Visit Diagnoses Diagnosis Encounter for general adult medical examination without abnormal findings Routine general medical examination at a health care facility documented in this encounter
--- OUTSIDE RECORDS SUMMARY | 2024-09-16 13:40 | XMS_ITS | Clinical Summary ---
Author Organization [facility] Address [address] [place] [address] Care Team Providers Care Land Management Forester Name Role Phone Ashanti Dove NP Primary Care Provider [phone] Social History Tobacco Use Types Packs/Day Years [...] 2023 01/12/2021, 07/03/2020, 06/21/2020, Additional history exists RSV Immunization or 60+ Years (1 - 1-dose 75+ series) 2024 Pneumococcal Vaccine: 50+ Years Completed 05/10/2023, 12/09/2014 Meningococcal B Vaccine Aged Out No l onger eligible based on patient's age to complete this topic Meningococcal Vaccine Aged Out No nick ronnie eligible based on patient's age to complete this topic RSV Immunizations Under 20 Months Aged Out No longer eligible based on patient's age to complete this topic Insurance MEDICARE [facility] Care Teams Land Management Forester Relationship Specialty Start Date End Date Ashanti Dove NP [address] [place] [address] PCP - General NURSE PRACTITIONER ADULT HEALTH 09/07/23
--- OUTSIDE RECORDS SUMMARY | 2024-09-16 13:40 | XMS_ITS | Clinical Summary ---
Author Organization [facility] Address [address] [place] [address] Phone Care Team Providers Care Morale Officer Name Role Phone Kirsten Pendleton MD Primary Care Provider [phone] Allergies No known active allergies Medications glipiZIDE [...] on file Legal Sex Female 9:55 AM [facility] Gender Identity Not on file [...] Influenza Vaccine (Season Ended) 2024 Insurance MEDICARE [facility] Care Teams Morale Officer Relationship Specialty Start Date End Date Kirsten Pendleton MD [address] [place] [address] PCP - General Family Medicine 04/01/19
--- OUTSIDE RECORDS SUMMARY | 2024-09-16 13:40 | XMS_ITS | Clinical Summary ---
Author Organization [facility] Address [address] [place] [address] Phone Care Team Providers Care Logistics Planning Engineer Name Role Phone TarikrosiobriandaBridget ETHYL BLENDER Primary Care Provider [phone] Allergies Active Allergy Reactions Criticality Noted Date [...] on file Legal Sex Female 9:18 AM PHYSICIST N[facility] Gender Identity Not on file Sexual Orientation Not on file Last Filed Vital Signs Vital Sign Reading Time Taken Comments Blood Pressure 150/68 03/09/2017 7:45 AM PHYSICIST NUCLEAR Pulse 105 03/08/2017 10:53 PM PHYSICIST NUCLEAR Temperature 37.3 C (99.2 F) 03/09/2017 7:45 AM PHYSICIST NUCLEAR Respiratory Rate 18 03/09/2017 7:45 AM PHYSICIST NUCLEAR Oxygen Saturation 95% 03/09/2017 7:45 AM PHYSICIST NUCLEAR Inhaled Oxygen Concentration - - Weight 115.7 kg (255 lb) 03/06/2017 2:20 PM PHYSICIST NUCLEAR Height 167.6 cm (5' 6) 03/06/2017 2:20 PM PHYSICIST NUCLEAR Body Mass Index 41.16 03/06/2017 2:20 PM PHYSICIST NUCLEAR Plan of Treatment Health Maintenance Due Date Last Done Comments Hepatitis C Virus (HCV) Screening 1950 TdaP Immunization 1950 Cologuard 1994 Colonoscopy 1994 Colorectal Cancer Screening 1994 Immunochemical Fecal Occult Blood 1994 Pneumococcal Immunization (5 0+ years) (1 of [...] this topic Medical Devices Implanted Type Area Gis Physical Scientist Device Identifier Shelf Expiration Date Model / Serial / Lot Cmnt Bn Endrn Sst Gnta 40gm Hvisc - [id number] Implanted:Qty: 2 on 07/04/2016 by Rian Foss MD at [facility] IMPLANT Left: Knee JNJ / [employer] 01/31/2018 [id number] / / [id number] Cmnt Bn Cmw2 20gm Strl - [id number] Implanted:Qty: 1 on 07/04/2016 by Rian Foss MD at [facility] IMPLANT Left: Knee [employer] / [employer] 08/31/2017 [id number] / / [id number] Cmpnt Ptlr 38mm Medialized Dome Attune - [id number] Implanted:Qty: 1 on 07/04/2016 by Rian Foss MD at [facility] IMPLANT Left: Knee [employer] / [employer] 01/31/2021 [id number] / / [id number] Cmnt Bn Sst Gnta Hvisc 40gm - [id number] Implanted:Qty: 1 on 03/06/2017 by Rian Foss MD at [facility] IMPLANT Right: Knee [employer] / [employer] 12/31/2017 [id number] / [id number] / [id number] Cmnt Bn Sst Gnta Hvisc 40gm - [id number] Implanted:Qty: 1 on 03/06/2017 by Rian Foss MD at [facility] IMPLANT Right: Knee [employer] / [employer] 01/31/2018 [id number] / [id number] / [id number] Dome Ptlr 35mm Attune Kn Aox Cmnt - [id number] Implanted:Qty: 1 on 03/06/2017 by Rian Foss MD at [facility] IMPLANT Right: Knee [employer] / [employer] 12/01/2021 [id number] / [id number] / [id number] Attune Tibial Base Size 6 Cemented Implanted:Qty: 1 on 07/04/2016 by Rian Foss MD at [facility] Left: Knee [employer] 03/02/2026 [id number] / / [id number] Attune Tibial Insert Size 6, 8mm Implanted:Qty: 1 on 07/04/2016 by Rian Foss MD at [facility] Left: Knee [employer] 10/31/2017 [id number] / / [id number] Attune Femoral Size 6, Left Cemented Implanted:Qty: 1 on 07/04/2016 by Rian Foss MD at [facility] Left: Knee [employer] 03/02/2026 [id number] / / [id number] Attune Tibial Base Implanted:Qty: 1 on 03/06/2017 by Rian Foss MD at [facility] Right: Knee [employer] 07/01/2026 [id number] / 1506-40-006 / [id number] Attune Knee System Revision Cemented Stem Implanted:Qty: 1 on 03/06/2017 by Rian Foss MD at [facility] Right: Knee [employer] 12/31/2026 [id number] / [id number] / [id number] Attune Femoral Posterior Stabilized Implanted:Qty: 1 on 03/06/2017 by Rian Foss MD at [facility] Right: Knee [employer] 07/01/2026 1504 / 150 / [id number] Attune Tibial Insert Implanted:Qty: 1 on 03/06/2017 by Rian Foss MD at [facility] Right: Knee [employer] 11/30/2021 1516-40-607 / 1516-40-607 / [id number] Insurance [facility] MEDICARE Member Subscriber Plan / Payer (Ef fective 2014-Present) Name:Jocelyn Norman Member ID:[id number] Relation to Subscriber:Self Name:Jocelyn Norman Subscriber ID:[id number] Payer ID:[id number] Group ID:Not on file Type:Not on file Address: [facility] [address] [facility] ServiceRelated [facility] [place] [address] Care Teams Logistics Planning Engineer Relationship Specialty Start Date End Date Bridget Trinidad APRN [address] [place] [address] PCP - General Advanced Practice Nurse 06/17/16
--- OUTSIDE RECORDS SUMMARY | 2024-09-16 13:40 | XMS_ITS | Referral Summary ---
Author Organization [address] Address [address] [place] [address] Care Team Providers Care Highway Engineer Name Role Phone Rosanne Emerson Primary Care Provider + Encounters Date Type Department Care Team Description 09/16/2024 Telephone [facility] Cardiology [address] [place] [phone] Ashanti Dove NP 08/21/2024 11:10 AM CDT - 08/21/2024 11:59 PM CDT Hospital Encounter [facility] Imaging and Radiology [address] [place] [address] Screening mammogram, encounter for; Encounter for screening mammogram for malignant neoplasm of breast Discharge Disposition: Discharge to home or self care 06/24/2024 Telephone [facility] Medical [facility] Cardiology [address] [place] [phone] Mitch Dunn MD from Last 3 Months [...] on file Legal Sex Female 7:43 PM CHIEF INVESTMENT OFFICER Gender Identity Not on file Sexual Orientation Not on file Last Filed Vital Signs Vital Sign Reading Time Taken Comments Blood Pressure 128/56 05/02/2024 3:43 PM CHIEF INVESTMENT OFFICER Pulse 64 05/02/2024 3:43 PM CHIEF INVESTMENT OFFICER Temperature - - Respiratory Rate - - Oxygen Saturation 96% 05/02/2024 3:43 PM CHIEF INVESTMENT OFFICER Inhaled Oxygen Concentration - - Weight 118.8 kg (262 lb) 05/02/2024 3:43 PM CHIEF INVESTMENT OFFICER Height 165.1 cm (5' 5) 05/02/2024 3:43 PM CHIEF INVESTMENT OFFICER Body Mass Index 43.6 05/02/2024 3:43 PM CHIEF INVESTMENT OFFICER Plan of Treatment Not on file Procedures [...] calcification, or architectural distortion in either breast. Rosanne QUINONEZ IMG MAMMO PROCEDURES Fin al Result * POCT lipid panel (07/28/2023 10:32 AM CDT) Cholesterol, POC <100 mg/dL HDL, POC 34 mg/dL Triglycerides, POC 87 mg/dL LDL Cholesterol POC 47 mg/dL Chol/HDL Ratio, POC N/A Non-HDL Cholesterol, POC N/A mg/dL Cholesterol Total, POC <100 mg/dL Capillary blood 07/28/2023 1 0:32 AM CDT [facility] Leonides Dunn MD POINT OF CARE TEST SARAVANAN LEONEL Final Result from Last 3 Months or Most Recently Relevant to Health Maintenance Insurance MEDICARE [facility] MEDICARE [employer] Care Teams Highway Engineer Relationship Specialty Start Date End Date Rosanne Emerson PA PCP - General Physician Director Employee Safety And Health 08/25/23
--- OUTSIDE RECORDS SUMMARY | 2024-09-16 13:40 | XMS_ITS ---
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
[2024-09-16] MEDS: dilTIAZem HCl INJ 25 MG/5 ML VIAL 10 MG IV PUSH (13:49)
--- NOTE | 2024-09-16 14:05 | ED_ITS ---
HPI - Arrhythmia/Palpitations General Chief Complaint: Arrhythmia/Palpitations <Mirian Morris PA-C - Last Filed: 09/16/24 16:39> Stated Complaint: AFIB, sent from PCP office <Mirian Morris PA-C - Last Filed: 09/16/24 16:39> Time Seen by Provider: 09/16/24 13:01 <Mirian Morris PA-C - Last Filed: 09/16/24 16:39> Source: patient <Mirian Morris PA-C - Last Filed: 09/16/24 16:39> Mode of arrival: ambulatory <ARCENIO Mistry Last Filed: 09/16/24 16:39> Limitations: no limitations <ARCENIO Mistry Last Filed: 09/16/24 16:39> History of Present Illness HPI narrative: Patient is a 74-year-old female, with PMH of DM, HTN, CKD, lymphedema, who presents the ED with report of elevated heart rate. Patient reports she had a routine appointment with her grain broker, Dr. Lou, for CKD when she was found to have elevated heart rate. She was also noted to be diaphoretic and clammy. She was then sent to the ED for further evaluation. Patient does have history of AFib. Is on Xarelto and metoprolol. Is compliant with this. Sees Dr. Dunn. Patient reports feeling somewhat fatigued, denies palpitations, chest pain, shortness of breath. Denies dizziness, lightheadedness. <Mirian Morris PA-C - Last Filed: 09/16/24 16:39> Related Data Home Medications: Home Medications ?Medication ?Instructions ?Recorded ?Confirmed ?Last Taken ?Type sertraline 100 mg tablet 50 mg PO DAILY 09/30/20 09/16/24 08/15/23 History atorvastatin 40 mg tablet 40 mg PO DAILY 03/20/23 09/16/24 Unknown History glipizide 10 mg tablet 20 mg PO HS 03/20/23 09/16/24 09/15/24 History loratadine 10 mg tablet 10 mg PO DAILY PRN Allergy Symptoms 03/20/23 09/16/24 09/16/24 History atorvastatin 40 mg tablet 40 mg PO HS 08/15/23 09/16/24 08/15/23 History furosemide 20 mg tablet 20 mg PO DAILY 08/15/23 09/16/24 Unknown History rivaroxaban 20 mg tablet (Xarelto) 20 mg PO HS 08/15/23 09/16/24 09/16/24 History empagliflozin 10 mg tablet 10 mg PO DAILY 09/18/23 09/16/24 09/16/24 History (Jardiance) biotin 5 mg tablet 5 mg PO DAILY 09/16/24 09/16/24 Unknown History cholecalciferol (vitamin D3) 25 25 mcg PO DAILY 09/16/24 09/16/24 Unknown History mcg (1,000 unit) capsule (Vitamin D3) ferrous sulfate 325 mg (65 mg 325 mg PO DAILY 09/16/24 09/16/24 Unknown History iron) tablet (Iron (ferrous sulfate)) mecobalamin (vitamin B12) 2,500 2,500 mcg PO DAILY 09/16/24 09/16/24 Unknown History mcg chewable tablet metoprolol succinate 25 mg 25 mg PO DAILY 09/16/24 09/16/24 09/16/24 History tablet,extended release 24 hr <Mirian Morris PA-C - Last Filed: 09/16/24 16:39> Allergies/Adverse Reactions: Allergies Allergy/AdvReac Type Severity Reaction Status Date / Time No Known Allergies Allergy Verified 09/16/24 17:28 <Mirian Morris PA-C - Last Filed: 09/16/24 16:39> Review of Systems 2 Review of Systems: All systems reviewed & are unremarkable except as noted in HPI. <Mirian Morris PA-C - Last Filed: 09/16/24 16:39> All systems reviewed & are unremarkable except as noted in HPI and below < ARCENIO Mistry Last Filed: 09/16/24 16:39> [facility] Past Medical History Medical History: Medical History Atrial fibrillation Dx Mar 2023; on anticoagulation Obesity Hypertension Chronic kidney disease Diabetes mellitus DM2 (diabetes mellitus, type 2) HTN (hypertension) <Mirian Morris PA-C - Last Filed: 09/16/24 16:39> Social History Social History: Social History Smoking packs per day: 0.25 Smoking cigarettes per day: 5.0 Years smoked: 4 Smoking pack-years: 1.00 Smoking status: Former smoker Tobacco type: cigarettes Second hand tobacco smoke exposure: No Smoking end date: 04/03/74 Alcohol intake: current Drinks per week: 2 Alcohol use details: last drink was July 15 - . drinks q3 weeks Substance use: never Substance use type: does not use Other substance usage details: occasional hit of marijuana Last use: 03/19/23 Do You Feel Safe in your Home?: Yes Lack of Transportation: No Lack of Food: Never True Current Housing: I Have Housing Concerned About Future Housing: No Difficulty Paying Gas/Electric Bills: No Difficulty Paying for Meds: No Currently Unemployed: No Education: Bachelor's Degree Difficulty w/ Childcare or Family Care: No Living arrangements: alone Gender identity (if verbalized by the patient): Female Spiritual care concerns: No <Mirian Morris PA-C - Last Filed: 09/16/24 16:39> Exam 2 Narrative: GENERAL: Well appearing, morbidly obese with BMI of 44.2, non-toxic, in no acute distress. HEAD: Normocephalic, atraumatic. RESPIRATORY: Airway patent, respirations nonlabored. Clear to auscultation bilaterally, no rales, rhonchi, wheezing. No significant focal lung sounds. CARDIOVASCULAR: Tachycardic with irregular rhythm without murmurs, rubs, or gallops. MUSCULOSKELETAL: Moves all extremities. No gross deformities. Diffuse swelling in BLE, nonpitting. No calf tenderness. SKIN: Warm, dry, normal color. NEURO: A&O X3. Speech clear. Cranial nerves II-XII grossly intact. Steady gait. No ataxic movements. PSYCHIATRIC: Appropriate mood and affect. Normal interaction. <Mirian Morris PA-C - Last Filed: 09/16/24 16:39> Course OLERICULTURE PROFESSOR/PA Physician Supervision For this patient encounter, I reviewed the OLERICULTURE PROFESSOR or PA documentation, treatment plan, and medical decision making; and I had [id number] time with this patient. <Norris Hernandez MD - Last Filed: 09/16/24 19:09> Vital Signs Vital signs: Vital Signs Temperature 98.1 F 09/16/24 12:54 Pulse Rate 128 H 09/16/24 12:54 Respiratory Rate 28 H 09/16/24 12:54 Blood Pressure 126/97 H 09/16/24 12:54 Pulse Oximetry 97 09/16/24 12:54 Oxygen Delivery Room Air 09/16/24 12:54 Temperature 98.2 F 09/16/24 17:30 Pulse Rate 95 09/16/24 18:00 Respiratory Rate 22 H 09/16/24 17:30 Blood Pressure 111/75 09/16/24 17:30 Pulse Oximetry 97 09/16/24 17:30 Oxygen Delivery Room Air 09/16/24 12:54 <Mirian Morris PA-C - Last Filed: 09/16/24 16:39> Vital Signs Temperature 98.1 F 09/16/24 12:54 Pulse Rate 128 H 09/16/24 12:54 Respiratory Rate 28 H 09/16/24 12:54 Blood Pressure 126/97 H 09/16/24 12:54 Pulse Oximetry 97 09/16/24 12:54 Oxygen Delivery Room Air 09/16/24 12:54 Temperature 98.2 F 09/16/24 17:30 Pulse Rate 95 09/16/24 18:00 Respiratory Rate 22 H 09/16/24 17:30 Blood Pressure 111/75 09/16/24 17:30 Pulse Oximetry 97 09/16/24 17:30 Oxygen Delivery Room Air 09/16/24 12:54 <Norris Hernandez MD - Last Filed: 09/16/24 19:09> MDM - Arrhythmia/Palpitations MDM Narrative Medical decision making narrative: Patient presented to ED from local nephrology office with concern for AFib with RVR. Patient does have history of AFib, on metoprolol and Xarelto. Reporting slight fatigue, otherwise denying chest pain or shortness of breath, dizziness. Initial EKG with rates in the 130s to 140s. No other significant concerning ST changes. Patient did take her metoprolol dose this morning. She was given additional 5 mg push a of Lopressor. No significant change in heart rate. She was given IV push Cardizem 10 mg and heart rate did respond well to this. She began having rates down into the 90s for brief period, but heart rate will still increase up to 120s briefly. Will start Cardizem drip. Baseline troponin is undetectable. BNP is elevated to 5080. Patient does have some swelling throughout her legs on exam, but reports history of chronic lymphedema. Edema is nonpitting. Chest x-ray is clear. No evidence of pulmonary edema. CMP does show CKD, appears consistent with previous records. Potassium 5.1. Patient given small amount of fluids in the ED. Will continue to monitor. Patient will be admitted for further evaluation. Discussed case with Lissy Catalan NP hospitalist, accepted patient for admission. IMU status. Patient in agreement with plan and need for admission. <Mirian Morris PA-C - Last Filed: 09/16/24 16:39> Medical Records Attestation: I reviewed the patient's medical records. <Mirian Morris PA-C - Last Filed: 09/16/24 16:39> Lab Data Attestation: I reviewed the patient's lab results. <Mirian Morris PA-C - Last Filed: 09/16/24 16:39> Result diagrams: 09/16/24 13:03 09/16/24 13:03 <Mirian Morris PA-C - Last Filed: 09/16/24 16:39> Labs: Lab Results 09/16/24 09/16/24 Range/Units 13:02 13:03 WBC 7.4 (4.5-10.0) K/mm3 RBC 4.47 (4.2-5.4) M/mm3 Hgb 13.3 (12.0-15.0) g/dL Hct 41.7 (37.0-47.0) % MCV 93.3 (80-100) fl MCH 29.8 (26-34) pg MCHC 31.9 L (32-36) g/dl RDW 13.7 (11.5-14.5) % Plt Count 234 (150-375) k/mm3 MPV 10.6 H (7.4-10.4) fl Immature Gran % (Auto) 0.4 (0-0.5) % Neut % (Auto) 52.6 (45.5-73.1) % Lymph % (Auto) 31.8 (18.3-44.2) % [place] % (Auto) 10.0 H (2.6-8.5) % Eos % (Auto) 4.3 (0-4.4) % Baso % (Auto) 0.9 (0.2-1.2) % Lymph # (Auto) 2.36 (0.9-3.2) K/mm3 [place] # (Auto) 0.7 H (0.1-0.6) K/mm3 Eos # (Auto) 0.3 (0-0.3) K/mm3 Baso # (Auto) 0.1 (0.0-0.1) K/mm3 Abs Immat Gran (auto) 0.03 (0.00-0.031) K/mm3 Absolute Neuts (auto) 3.9 (1.3-6.7) K/mm3 Absolute Nucleated RBC 0.000 (0.0-0.012) K/mm3 Nucleated RBC % 0.0 (0.0-0.2) % PT 20.8 H (11.1-14.7) Seconds INR 1.8 APTT 34.3 (22.3-36.8) Seconds Sodium 137 (137-145) mmol/L Potassium 5.1 H (3.4-5.0) mmol/L Chloride 105 (98-107) mmol/L Carbon Dioxide 23 (22-30) mmol/L Anion Gap 9 (4-12) mmol/L BUN 29 H (7-17) mg/dL Creatinine 1.49 H (0.7-1.0) mg/dL Estim Creat Clear Calc 38 ml/min Estimated GFR 34 L (59 - ) Glucose 283 H (65-110) mg/dL Calcium 9.7 (8.4-10.2) mg/dL Magnesium 1.9 (1.6-2.3) mg/dL Total Bilirubin 0.6 (0.2-1.3) mg/dL AST 39 H (14-36) U/L ALT 25 (6-35) U/L Alkaline Phosphatase 90 (38-126) U/L Troponin I < 0.012 (0.000-0.034) ng/mL NT-Pro-B Natriuret Pep 5080 H (19.9-100) pg/mL Total Protein 8.0 (6.3-8.2) g/dL Albumin 4.2 (3.5-5.1) g/dL Lipase 198 (23-300) U/L <Mirian Morris PA-C - Last Filed: 09/16/24 16:39> Lab Results 09/16/24 09/16/24 Range/Units 13:02 13:03 WBC 7.4 (4.5-10.0) K/mm3 RBC 4.47 (4.2-5.4) M/mm3 Hgb 13.3 (12.0-15.0) g/dL Hct 41.7 (37.0-47.0) % MCV 93.3 (80-100) fl MCH 29.8 (26-34) pg MCHC 31.9 L (32-36) g/dl RDW 13.7 (11.5-14.5) % Plt Count 234 (150-375) k/mm3 MPV 10.6 H (7.4-10.4) fl Immature Gran % (Auto) 0.4 (0-0.5) % Neut % (Auto) 52.6 (45.5-73.1) % Lymph % (Auto) 31.8 (18.3-44.2) % [place] % (Auto) 10.0 H (2.6-8.5) % Eos % (Auto) 4.3 (0-4.4) % Baso % (Auto) 0.9 (0.2-1.2) % Lymph # (Auto) 2.36 (0.9-3.2) K/mm3 [place] # (Auto) 0.7 H (0.1-0.6) K/mm3 Eos # (Auto) 0.3 (0-0.3) K/mm3 Baso # (Auto) 0.1 (0.0-0.1) K/mm3 Abs Immat Gran (auto) 0.03 (0.00-0.031) K/mm3 Absolute Neuts (auto) 3.9 (1.3-6.7) K/mm3 Absolute Nucleated RBC 0.000 (0.0-0.012) K/mm3 Nucleated RBC % 0.0 (0.0-0.2) % PT 20.8 H (11.1-14.7) Seconds INR 1.8 APTT 34.3 (22.3-36.8) Seconds Sodium 137 (137-145) mmol/L Potassium 5.1 H (3.4-5.0) mmol/L Chloride 105 (98-107) mmol/L Carbon Dioxide 23 (22-30) mmol/L Anion Gap 9 (4-12) mmol/L BUN 29 H (7-17) mg/dL Creatinine 1.49 H (0.7-1.0) mg/dL Estim Creat Clear Calc 38 ml/min Estimated GFR 34 L (59 - ) Glucose 283 H (65-110) mg/dL Calcium 9.7 (8.4-10.2) mg/dL Magnesium 1.9 (1.6-2.3) mg/dL Total Bilirubin 0.6 (0.2-1.3) mg/dL AST 39 H (14-36) U/L ALT 25 (6-35) U/L Alkaline Phosphatase 90 (38-126) U/L Troponin I < 0.012 (0.000-0.034) ng/mL NT-Pro-B Natriuret Pep 5080 H (19.9-100) pg/mL Total Protein 8.0 (6.3-8.2) g/dL Albumin 4.2 (3.5-5.1) g/dL Lipase 198 (23-300) U/L <Norris Hernandez MD - Last Filed: 09/16/24 19:09> Imaging Data Attestation: I personally reviewed and interpreted this imaging study as follows: < Mirian Morris PA-C - Last Filed: 09/16/24 16:39> ECG Data EKG #1: Attestation: I personally reviewed and interpreted this ECG as follows: <Mirian Morris PA-C - Last Filed: 09/16/24 16:39> ECG completion date: 09/16/24 <Mirian Morris PA-C - Last Filed: 09/16/24 16:39> ECG completion time: 12:59 <ARCENIO Mistry Last Filed: 09/16/24 16:39> EKG Interpretation: tachycardia (131), atrial fibrillation (RVR) and non-specific ST changes <ARCENIO Mistry Last Filed: 09/16/24 16:39> Discharge Plan Discharge Clinical Impression: Atrial fibrillation with rapid ventricular response, Elevated brain natriuretic peptide (BNP) level <ARCENIO Mistry Last Filed: 09/16/24 16:39> Patient Disposition: Still a Patient <ARCENIO Mistry Last Filed: 09/16/24 16:39> Condition: Stable <ARCENIO Mistry Last Filed: 09/16/24 16:39>
[2024-09-16] MEDS: dilTIAZem 100 MG/100 ML 100 MG/100 ML BAG IV CONT (14:12)
[2024-09-16 14:14] LABS: Magnesium 1.9 mg/dL (1.6-2.3)
--- OUTSIDE RECORDS SUMMARY | 2024-09-16 14:17 | XMS_ITS | Referral Summary ---
Author Organization [address] Address [address] [place] [id number] Care Team Providers Care Ammonia Box Operator Name Role Phone Rosanne Emerson Primary Care Provider + Encounters Date Type Department Care Team Description 09/16/[address] [facility] Medical Group Cardiology [address] [place] [phone] Ashanti Dove NP 08/21/2024 11:10 AM CDT - 08/21/2024 11:59 PM CDT Hospital Encounter [facility] Imaging and Radiology [address] [place] [address] Screening mammogram, encounter for; Encounter for screening mammogram for malignant neoplasm of breast Discharge Disposition: Discharge to home or self care 06/24/[address] [facility] Medical [facility] Cardiology [address] [place] [phone] Mitch Dunn MD from Last 3 Months [...] on file Legal Sex Female 7:43 PM PROCESS ARCHITECT Gender Identity Not on file Sexual Orientation Not on file Last Filed Vital Signs Vital Sign Reading Time Taken Comments Blood Pressure 128/56 05/02/2024 3:43 PM PROCESS ARCHITECT Pulse 64 05/02/2024 3:43 PM PROCESS ARCHITECT Temperature - - Respiratory Rate - - Oxygen Saturation 96% 05/02/2024 3:43 PM PROCESS ARCHITECT Inhaled Oxygen Concentration - - Weight 118.8 kg (262 lb) 05/02/2024 3:43 PM PROCESS ARCHITECT Height 165.1 cm (5' 5) 05/02/2024 3:43 PM PROCESS ARCHITECT Body Mass Index 43.6 05/02/2024 3:43 PM PROCESS ARCHITECT Plan of Treatment Not on file Procedures [...] Capillary blood 07/28/2023 1 0:32 AM CDT [facility] Dunn MD POINT OF CARE TEST SARAVANAN LEONEL Final Result from Last 3 Months or Most Recently Relevant to Health Maintenance Insurance MEDICARE [facility] MEDICARE A[employer] Care Teams Ammonia Box Operator Relationship Specialty Start Date End Date Rosanne Emerson PA PCP - General Physician Economic Adviser 08/25/23
--- OUTSIDE RECORDS SUMMARY | 2024-09-16 14:17 | XMS_ITS ---
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
--- OUTSIDE RECORDS SUMMARY | 2024-09-16 14:17 | XMS_ITS | Clinical Summary ---
Author Organization [facility] Address [address] [place] [phone] Phone Care Team Providers Care Stem Maker Name Role Phone Kirsten Pendleton MD Primary Care Provider [phone] Allergies No known active allergies Medications glipiZIDE [...] on file Legal Sex Female 9:55 AM [facility] Gender Identity Not on file [...] Influenza Vaccine (Season Ended) 2024 Insurance MEDICARE [facility] Care Teams Stem Maker Relationship Specialty Start Date End Date Kirsten Pendleton MD [address] [place] [address] PCP - General Family Medicine 04/01/19
--- OUTSIDE RECORDS SUMMARY | 2024-09-16 14:17 | XMS_ITS | Encounter Summary ---
Author Organization [facility] Healthcare Address [address] [place] [address] Care Team Providers Care Director Audience Marketing Name Role Phone Rosanne Emerson Primary Care Provider + Encounter Details Date Type Department Care Team (Late st Contact Info) Description 09/16/2024 Telephone [facility] Medical Group Cardiology [address] [place] [address] Ashanti Dove NP [address] [place] [address] Social History Tobacco Use Types Packs/Day Years Used Date Smoking Tobacco: Former Smokeless Tobacco: Never Comments Unknown Sex and Gender Information Value Date Recorded Sex Assigned at Not on file Legal Sex Female 7:43 PM OPERATIONS SECTION MANAGER Gender Identity Not on file Sexual Orientation Not on file documented as of this encounter Miscellaneous Notes * Telephone Encounter - Ashanti Dove NP - 09/16/2024 12:31 PM CDT I spoke to Dr. Brown and advised patient to be sent to ER. * Telephone Encounter - Apurva Patel - 09/16/2024 11:[address] Brown [...] on filedocumented in this encounter Care Teams Director Audience Marketing Relationship Specialty Start Date End Date Rosanne Emerson PA PCP - General Physician Custom Shop Worker 08/25/23 documented as of this encounter
--- OUTSIDE RECORDS SUMMARY | 2024-09-16 14:17 | XMS_ITS ---
Author Name Auto Generated, Auto Generated Organization [facility] [facility] ices Address [address] [facility] [address] [place] [address] Phone [phone] Care Team Providers Care Business Systems Advisor Name Role Phone Zain Smith Unavailable [phone] Functional Status No Results Mental Status No [...] 2016 * End Date: * Text: * rn long term care (current) use of aspirin* Code: * Start [...]
--- OUTSIDE RECORDS SUMMARY | 2024-09-16 14:17 | XMS_ITS | Clinical Summary ---
Author Organization [facility] Address [address] [place] [address] Phone Care Team Providers Care Swing Driver Name Role Phone TarikrosiobriandaBridget TIRE CENTER SUPERVISOR Primary Care Provider [phone] Allergies Active Allergy Reactions Criticality Noted Date [...] on file Legal Sex Female 9:18 AM BOOK SEWING MACHINE OPERATOR Gender Identity Not on file Sexual Orientation Not on file Last Filed Vital Signs Vital Sign Reading Time Taken Comments Blood Pressure 150/68 03/09/2017 7:45 AM BOOK SEWING MACHINE OPERATOR Pulse 105 03/08/2017 10:53 PM BOOK SEWING MACHINE OPERATOR Temperature 37.3 C (99.2 F) 03/09/2017 7:45 AM BOOK SEWING MACHINE OPERATOR Respiratory Rate 18 03/09/2017 7:45 AM BOOK SEWING MACHINE OPERATOR Oxygen Saturation 95% 03/09/2017 7:45 AM BOOK SEWING MACHINE OPERATOR Inhaled Oxygen Concentration - - Weight 115.7 kg (255 lb) 03/06/2017 2:20 PM BOOK SEWING MACHINE OPERATOR Height 167.6 cm (5' 6) 03/06/2017 2:20 PM BOOK SEWING MACHINE OPERATOR Body Mass Index 41.16 03/06/2017 2:20 PM BOOK SEWING MACHINE OPERATOR Plan of Treatment Health Maintenance Due Date [...] this topic Medical Devices Implanted Type Area Sampler Ovens Device Identifier Shelf Expiration Date Model / Serial / Lot Cmnt Bn Endrn Sst Gnta 40gm Hvisc - [id number] Implanted:Qty: 2 on 07/04/2016 by Rian Foss MD at [facility] IMPLANT Left: Knee JNJ / [employer] 01/31/2018 [id number] / / [id number] Cmnt Bn Cmw2 20gm Strl - [id number] Implanted:Qty: 1 on 07/04/2016 by Rian Foss MD at [facility] IMPLANT Left: Knee [employer] / [employer] 08/31/2017 [id number] / / [id number] Cmpnt Ptlr 38mm Medialized Dome Attune - [id number] Implanted:Qty: 1 on 07/04/2016 by Rian Foss MD at [facility] IMPLANT Left: Knee [employer] / [employer] 01/31/2021 [id number] / / [id number] Cmnt Bn Sst Gnta Hvisc 40gm - [id number] Implanted:Qty: 1 on 03/06/2017 by Rian Foss MD at [facility] IMPLANT Right: Knee [employer] / [employer] 12/31/2017 [id number] / [id number] / [id number] Cmnt Bn Sst Gnta Hvisc 40gm - [id number] Implanted:Qty: 1 on 03/06/2017 by Rian Foss MD at [facility] IMPLANT Right: Knee [employer] / [employer] 01/31/2018 [id number] / [id number] / [id number] Dome Ptlr 35mm Attune Kn Aox Cmnt - [id number] Implanted:Qty: 1 on 03/06/2017 by Rian Foss MD at [facility] IMPLANT Right: Knee [employer] / [employer] 12/01/2021 [id number] / [id number] / [id number] Attune Tibial Base Size 6 Cemented Implanted:Qty: 1 on 07/04/2016 by Rian Foss MD at [facility] Left: Knee [employer] 03/02/2026 [id number] / / [id number] Attune Tibial Insert Size 6, 8mm Implanted:Qty: 1 on 07/04/2016 by Rian Foss MD at [facility] Left: Knee [employer] 10/31/2017 [id number] / / [id number] Attune Femoral Size 6, Left Cemented Implanted:Qty: 1 on 07/04/2016 by Rian Foss MD at [facility] Left: Knee [employer] 03/02/2026 [id number] / / [id number] Attune Tibial Base Implanted:Qty: 1 on 03/06/2017 by Rian Foss MD at [facility] Right: Knee [employer] 07/01/2026 [id number] / [id number] / [id number] Attune Knee System Revision Cemented Stem Implanted:Qty: 1 on 03/06/2017 by Rian Foss MD at [facility] Right: Knee [employer] 12/31/2026 [id number] / [id number] / [id number] Attune Femoral Posterior Stabilized Implanted:Qty: 1 on 03/06/2017 by Rian Foss MD at [facility] Right: Knee [employer] 07/01/2026 1504 / 150 / [id number] Attune Tibial Insert Implanted:Qty: 1 on 03/06/2017 by Rian Foss MD at [facility] Right: Knee [employer] 11/30/2021 [id number] / [id number] / [id number] Insurance [facility] MEDICARE Care Teams Swing Driver Relationship Specialty Start Date End Date Bridget Trinidad APRN [address] [place] [address] PCP - General Advanced Practice Nurse 06/17/16
--- OUTSIDE RECORDS SUMMARY | 2024-09-16 14:17 | XMS_ITS | Encounter Summary ---
Author Organization [facility] Address [address] [place] [address] Care Team Providers Care Thermit Welding Machine Operator Name Role Phone Unavailable Primary Care Provider Unavailabl e Encounter Details Date Type Department Care Team (Late st Contact Info) Description 03/13/2017 Lab Requisition [facility] Laboratory Services S [facility] [address] [place] [address] Zain Smith MD [address] [place], [place] [id number] Encounter for general adult medical examination without [...] Description 09/26/2024 2:15 PM CDT Office Visit [facility] Oncology and Hematology - [place] [address] [place] [address] Gurjit Ayala MD [address] [facility] [address] [place] [address] documented as of this encounter Procedures Procedure Name Priority Date/Time Associated Diagnosis Comments CBC WITH DIFFERENTIAL Routine 03/13/2017 7:28 AM HEARING EXAMINER Encounter for general adult medical examination without abnormal findings PTT Routine 03/13/2017 7:28 AM HEARING EXAMINER Encounter for general adult medical examination without abnormal findings PROTIME-INR Routine 03/13/2017 7:28 AM HEARING EXAMINER Encounter for general adult medical examination without abnormal findings HEMOGLOBIN A1C Routine 03/13/2017 7:28 AM HEARING EXAMINER Encounter for general adult medical examination without abnormal findings documented in this encounter Results * PTT (03/13/2017 7:28 AM HEARING EXAMINER) PTT 33.4 24.4 - 36.4 seconds 03/13/2017 10:58 AM HEARING EXAMINER [facility] Comment: PTT Therapeutic Range: Heparin Level PTT (seconds) <0.10 units/mL <53 0.10 - 0.30 units/mL 53 - 67 0.30 - 0.70 units/mL* 67 - 95* 0.70 - 1.00 units/mL 95 - 116 *corresponds to therapeutic range for unfractionated heparin Blood Venipuncture / Unknown 03/13/2017 7:28 AM HEARING EXAMINER 03/13/2017 9:18 AM HEARING EXAMINER Zain Smith MD HEMATOLOGY ORDERABLES Final Result [facility]# [id number] [address] [place] [address] * PROTIME-INR (03/13/2017 7:28 AM HEARING EXAMINER) PROTIME 13.4 12.7 - 15.1 Seconds 03/13/2017 10:58 AM HEARING EXAMINER [facility] INR 1.0 0.9 - 1.1 03/13/2017 10:58 AM [facility] Blood Venipuncture / Unknown 03/13/2017 7:28 AM HEARING EXAMINER 03/13/2017 9:18 AM HEARING EXAMINER Narrative [facility] - 03/13/2017 10:58 AM HEARING EXAMINER INR Therapeutic Range: Adult: 2.0 - 3.0 for pulmonary embolism or prophylaxis against venous thrombosis or systemic embolization. 2.0 - 3.0 for patients with tissue heart valves. 2.5 - 3.5 for patients with mechanical heart valves or post RI. Pediatric (12 years and under): 1.5 - 3.0 Although the target range in children is not well established, INR values of 1.5 - 3.0 are recommended for most patients. Higher values have been used in children with prosthetic cardiac valves and hereditary clotting disorders. (<3 days) therapeutic ranges have not been established. Zain Smith MD HEMATOLOGY ORDERABLES Final Result [employer] LABORATORY SERVICES - [facility] CLIA# [id number] [address] [place] [place] [address] * (ABNORMAL) CBC WITH DIFFERENTIAL (03/13/2017 7:28 AM HEARING EXAMINER) WBC 5.0 4.0 - 9.8 K/uL 03/13/2017 10:15 AM [email or web address] LABORATORY SERVICES - [facility] RBC 3.28(L) 4.50 - 5.40 M/uL 03/13/2017 10:15 AM [email or web address] LABORATORY SERVICES - . [facility] HEMOGLOBIN 9.7(L) 13.6 - 16.5 g/dL 03/13/2017 10:15 AM [email or web address] LABORATORY SERVICES - . [facility] HEMATOCRIT 30.7(L) 40.0 - 48.0 % 03/13/2017 10:15 AM [email or web address] LABORATORY SERVICES - . [facility] MCV 93.6 82.0 - 99.0 fL 03/13/2017 10:15 AM [email or web address] LABORATORY SERVICES - . [facility] MCH 29.6 27.2 - 32.6 pg 03/13/2017 10:15 AM [email or web address] LABORATORY SERVICES - . [facility] MCHC 31.6 31.5 - 35.5 g/dL 03/13/2017 10:15 AM [email or web address] LABORATORY SERVICES - . [facility] RDW 14.2 11.5 - 14.5 % 03/13/2017 10:15 AM [email or web address] LABORATORY SERVICES - . [facility] RDW-STDEV 48.7 37.1 - 48.7 fL 03/13/2017 10:15 AM [email or web address] LABORATORY SERVICES - . [facility] PLATELETS 261 140 - 350 K/uL 03/13/2017 10:15 AM [employer] - [facility] MPV 10.0 9.3 - 12.4 fL 03/13/2017 10:15 AM [facility] [employer] [facility] - [facility] NEUTROPHILS 33 % 03/13/2017 10:15 AM [facility] [employer] [facility] - [facility] LYMPHOCYTES 43 % 03/13/2017 10:15 AM [facility] [employer] [facility] - [facility] MONOCYTES 15 % 03/13/2017 10:15 AM [facility] [employer] [facility] - [facility] EOSINOPHILS 7 % 03/13/2017 10:15 AM [facility] [employer] [facility] - [facility] BASOPHILS 0 % 03/13/2017 10:15 AM [facility] [employer] [facility] - [facility] IMMATURE GRANULOCYTES 2 % 03/13/2017 10:15 AM [facility] [employer] [facility] - [facility] Comment:IG (Immature Granulo cyte) count includes Metamyelocytes, Myelocytes, and Promyelocytes NEUTROPHIL ABSOLUTE 1.68(L) 1.90 - 7.00 K/uL 03/13/2017 10:15 AM [facility] [employer] [facility] - [facility] LYMPHOCYTE ABSOLUTE 2.14 0.70 - 4.50 K/uL 03/13/2017 10:15 AM [facility] [employer] [facility] - [facility] MONOCYTE ABSOLUTE 0.74 0.10 - 1.30 K/uL 03/13/2017 10:15 AM [facility] [employer] - [facility] EOSINOPHIL ABSOLUTE 0.35 0.00 - 0.70 K/uL 03/13/2017 10:15 AM [facility] [employer] - [facility] BASOPHILS ABSOLUTE 0.02 0.00 - 0.20 K/uL 03/13/2017 10:15 AM [facility] [employer] [facility] - [facility] IMMATURE GRANULOCYTES ABSOLUTE 0.10(H) 0.00 - 0.03 K/uL 03/13/2017 10:15 AM [facility] [employer] [facility] Blood Venipuncture / Unknown 03/13/2017 7:28 AM [facility] 03/13/2017 9:18 AM HEARING EXAMINER us Zain Smith MD HEMATOLOGY ORDERABLES Final Result [facility] CLIA# [id number] [address] [place] [address] * (ABNORMAL) HEMOGLOBIN A1C (03/13/2017 7:28 AM HEARING EXAMINER) HEMOGLOBIN A1C 6.3(H) 4.0 - 6.0 % 03/13/2017 10:54 AM HEARING EXAMINER [facility] EST. AVG GLUCOSE, A1C 134 mg/dL 03/13/2017 10:54 AM HEARING EXAMINER [facility] Blood Venipuncture / Unknown 03/13/2017 7:28 AM HEARING EXAMINER 03/13/2017 9:18 AM HEARING EXAMINER us Zain Smith MD CHEMISTRY ORDERABLES Final R esult [facility]# [id number] [address] [place] [address] documented in this encounter Visit Diagnoses Diagnosis Encounter for general adult medical examination without abnormal findings Routine general medical examination at a health care facility documented in this encounter
--- OUTSIDE RECORDS SUMMARY | 2024-09-16 14:17 | XMS_ITS | Clinical Summary ---
Author Organization [facility] Address [address] [place] [address] Phone Care Team Providers Care Sound Designer Name Role Phone Unavailable Primary Care Provider [...] Comments Blood Pressure 97/51 05/27/2024 2:14 PM SOLID WASTE FACILITY SUPERVISOR Pulse 53 05/27/2024 2:14 PM SOLID WASTE FACILITY SUPERVISOR Temperature 36.2 C (97.1 F) 05/27/2024 2:14 PM SOLID WASTE FACILITY SUPERVISOR Respiratory Rate 15 05/27/2024 2:14 PM SOLID WASTE FACILITY SUPERVISOR Oxygen Saturation 97% 05/27/2024 2:14 PM SOLID WASTE FACILITY SUPERVISOR Inhaled Oxygen Concentration - - Weight 120.2 kg (265 lb) 05/27/2024 2:14 PM SOLID WASTE FACILITY SUPERVISOR Height 165.1 cm (5' 5) 11/17/2023 10:49 AM CDT Body Mass Index 44.1 11/17/2023 10:49 AM CDT Plan of Treatment Upcoming Encounters Date Type Department Care Team (Late st Contact Info) Description 09/26/2024 2:15 PM CDT Office Visit [facility] Oncology and Hematology - [place] [address] [facility] [address] [place] [address] Gurjit Ayala MD [address] [facility] [address] [place] [address] Health Maintenance Due Date Last [...] Comments HEMOGLOBIN A1C Routine 03/13/2017 7:28 AM SOLID WASTE FACILITY SUPERVISOR Encounter for general adult medical examination without abnormal findings from Last 3 Months or Most Recently Relevant to Health Maintenance Results * (ABNORMAL) HEMOGLOBIN A1C (03/13/2017 7:28 AM SOLID WASTE FACILITY SUPERVISOR) HEMOGLOBIN A1C 6.3(H) 4.0 - 6.0 % 03/13/2017 10:54 AM SOLID WASTE FACILITY SUPERVISOR [facility] LABORATORY SERVICES [facility] [facility] EST. AVG GLUCOSE, A1C 134 mg/dL 03/13/2017 10:54 AM SOLID WASTE FACILITY SUPERVISOR [facility] LABORATORY SERVICES [facility] [facility] Blood Venipuncture / Unknown 03/13/2017 7:28 AM SOLID WASTE FACILITY SUPERVISOR 03/13/2017 9:18 AM SOLID WASTE FACILITY SUPERVISOR us Zain Smith MD CHEMISTRY ORDERABLES Final R esult [facility] LABORATORY SERVICES [facility] CLIA# [id number] [address] [place] [address] from Last 3 Months or Most Recently Relevant to Health Maintenance Insurance MEDICARE PART A AND B [facility] [id number]
--- OUTSIDE RECORDS SUMMARY | 2024-09-16 14:17 | XMS_ITS | Clinical Summary ---
Author Organization [address] Address [address] [place] [address] Care Team Providers Care Script Manager Name Role Phone Rosanne Emerson Primary Care [...] Type Department Care Team Description 09/16/2024 Telephone [facility] Cardiology [address] [facility] [address] [place] [address] Ashanti Dvoe NP 08/21/2024 11:10 AM CDT - 08/21/2024 11:59 PM CDT Hospital Encounter [facility] Rad[facility] [address] [place] [address] Screening mammogram, encounter for; Encounter for screening mammogram for malignant neoplasm of breast Discharge Disposition: Discharge to home or self care 06/24/2024 Telephone [facility] Cardiology [address] [place] [address] Mitch Dunn MD from Last [...] on file Legal Sex Female 7:43 PM HUMAN RESOURCES OPERATIONS SPECIALIST Gender Identity Not on file Sexual Orientation Not on file Obstetrics History Last Filed Vital Signs Vital Sign Reading Time Taken Comments Blood Pressure 128/56 05/02/2024 3:43 PM HUMAN RESOURCES OPERATIONS SPECIALIST Pulse 64 05/02/2024 3:43 PM HUMAN RESOURCES OPERATIONS SPECIALIST Temperature - - Respiratory Rate - - Oxygen Saturation 96% 05/02/2024 3:43 PM HUMAN RESOURCES OPERATIONS SPECIALIST Inhaled Oxygen Concentration - - Weight 118.8 kg (262 lb) 05/02/2024 3:43 PM HUMAN RESOURCES OPERATIONS SPECIALIST Height 165.1 cm (5' 5) 05/02/2024 3:43 PM HUMAN RESOURCES OPERATIONS SPECIALIST Body Mass Index 43.6 05/02/2024 3:43 PM HUMAN RESOURCES OPERATIONS SPECIALIST Plan of Treatment Health Maintenance Due Date [...] Recently Relevant to Health Maintenance Insurance MEDICARE [facility] MEDICARE [facility] Care Teams Script Manager Relationship Specialty Start Date End Date Rosanne Emerson PA PCP - General Physician Laundry Folder 08/25/23
--- NOTE | 2024-09-16 15:51 | ECG_ITS ---
Test Date: 2024-09-16 15:54:49 Measurements Intervals [place] Rate: 99 P: 0 WV: 0 QRS: 7 QRSD: 106 T: 33 QT: 334 QTc: 430 Interpretive Statements ATRIAL FLUTTER/TACHYCARDIA WITH VARIABLE BLOCK BORDERLINE ST ABNORMALITY- LAT/HIGH LAT LEADS ABNORMAL ECG Compared to ECG 09/16/2024 12:59:00 ATRIAL FIBRILLATION NO LONGER PRESENT Electronically Signed On 09-16-2024 16:11:44 CDT by Rigo Johnson D.O.
[2024-09-16 16:25] LABS: Troponin I < 0.012 ng/mL (0.000-0.034)
--- NOTE | 2024-09-16 16:42 | P.HP_ITS ---
H&P: HPI History of Present Illness Date/Time: 09/16/24 16:42 Chief Complaint: Atrial Fibrillation Narrative: 74 y/o F with PMH of Afib on Xarelto, HTN, CKD, DM2, and HTN presents here with Afib RVR. 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 The patient was at her usual kidney follow-up when she was found to have an elevated HR in the 140s and her BP was 96/74 prompting her to be sent the ER for evaluation. Upon arrival to the ER she had a HR of 128 and BP was 126/97. She has a hx of Afib on Metoprolol and Xarelto. She denies any missed doses. She reports accompanying fatigue, clammy/flushed, and dizzy, as though her balance has been off - mostly notes in when she goes to turn and feels wobbly. Denies chest pain, shortness of breath, nausea, vomiting, fever, or chills. Did have a little bit of loose stool yesterday. Initial VS at presentation: 98.1? F, HR 128, R 20, 126/97, and 97% on RA. ED workup showed: No leukocytosis, no anemia, INR 1.8, potassium 5.1, creatinine 1.49 and GFR 34, initial troponin negative x2, BNP 5080. CXR showed no acute cardiopulmonary disease. Initial EKG showed AFib RVR, rate 131, borderline ST-T-wave abnormality in. /high lateral leads. Review of Systems Review of Systems: All systems reviewed & are unremarkable except as noted in HPI and [facility] Past Medical History Medical History Atrial fibrillation Dx Mar 2023; on anticoagulation Obesity Hypertension Chronic kidney disease Diabetes mellitus DM2 (diabetes mellitus, type 2) HTN (hypertension) Social History Social History Smoking packs per day: 0.25 Smoking cigarettes per day: 5.0 Years smoked: 4 Smoking pack-years: 1.00 Smoking status: Former smoker Tobacco type: cigarettes Second hand tobacco smoke exposure: No Smoking end date: 04/03/74 Alcohol intake: current Drinks per week: 2 Alcohol use details: last drink was July 15 - . drinks q3 weeks Substance use: never Substance use type: does not use Other substance usage details: occasional hit of marijuana Last use: 03/19/23 Do You Feel Safe in your Home?: Yes Lack of Transportation: No Lack of Food: Never True Current Housing: I Have Housing Concerned About Future Housing: No Difficulty Paying Gas/Electric Bills: No Difficulty Paying for Meds: No Currently Unemployed: No Education: Bachelor's Degree Difficulty w/ Childcare or Family Care: No Living arrangements: alone Gender identity (if verbalized by the patient): Female Spiritual care concerns: No Meds Home Medications and Allergies Home Medications ?Medication ?Instructions ?Recorded ?Confirmed ?Type sertraline 100 mg tablet 50 mg PO DAILY 09/30/20 09/16/24 History atorvastatin 40 mg tablet 40 mg PO DAILY 03/20/23 09/16/24 History glipizide 10 mg tablet 20 mg PO HS 03/20/23 09/16/24 History loratadine 10 mg tablet 10 mg PO DAILY PRN Allergy Symptoms 03/20/23 09/16/24 History atorvastatin 40 mg tablet 40 mg PO HS 08/15/23 09/16/24 History furosemide 20 mg tablet 20 mg PO DAILY 08/15/23 09/16/24 History rivaroxaban 20 mg tablet (Xarelto) 20 mg PO HS 08/15/23 09/16/24 History empagliflozin 10 mg tablet 10 mg PO DAILY 09/18/23 09/16/24 History (Jardiance) lisinopril 10 mg tablet 10 mg PO DAILY #30 tabs 09/18/23 09/16/24 Rx biotin 5 mg tablet 5 mg PO DAILY 09/16/24 09/16/24 History cholecalciferol (vitamin D3) 25 25 mcg PO DAILY 09/16/24 09/16/24 History mcg (1,000 unit) capsule (Vitamin D3) ferrous sulfate 325 mg (65 mg 325 mg PO DAILY 09/16/24 09/16/24 History iron) tablet (Iron (ferrous sulfate)) mecobalamin (vitamin B12) 2,500 2,500 mcg PO DAILY 09/16/24 09/16/24 History mcg chewable tablet metoprolol succinate 25 mg 25 mg PO DAILY 09/16/24 09/16/24 History tablet,extended release 24 hr Allergies Allergy/AdvReac Type Severity Reaction Status Date / Time No Known Allergies Allergy Verified 09/16/24 17:28 Vital Signs Vital Signs - 24 hr 09/16/24 12:54 09/16/24 12:57 09/16/24 13:03 Temperature 98.1 F Pulse Rate 128 H 131 H 133 H Respiratory Rate 28 H 18 Blood Pressure 126/97 H 126/97 H Pulse Oximetry 97 96 Oxygen Delivery Room Air 09/16/24 13:05 09/16/24 13:06 09/16/24 13:14 Temperature Pulse Rate 132 H 141 H 125 H Respiratory Rate 19 17 Blood Pressure 124/98 H 124/98 H Pulse Oximetry 98 99 Oxygen Delivery 09/16/24 13:16 09/16/24 13:50 09/16/24 13:50 Temperature Pulse Rate 132 H 127 H 126 H Respiratory Rate 19 17 18 Blood Pressure 108/79 133/99 H 133/99 H Pulse Oximetry 98 99 100 Oxygen Delivery 09/16/24 14:01 09/16/24 14:12 09/16/24 14:28 Temperature Pulse Rate 99 114 H 121 H Respiratory Rate 17 Blood Pressure 114/91 H 114/91 H Pulse Oximetry 98 Oxygen Delivery 09/16/24 14:30 09/16/24 14:31 09/16/24 14:31 Temperature Pulse Rate 103 H 122 H 92 Respiratory Rate 15 15 13 Blood Pressure 116/103 H 117/91 H 117/91 H Pulse Oximetry 99 99 99 Oxygen Delivery 09/16/24 14:55 09/16/24 15:22 09/16/24 15:23 Temperature Pulse Rate 124 H 117 H 124 H Respiratory Rate 18 23 H Blood Pressure 115/100 H 104/77 104/77 Pulse Oximetry 100 96 Oxygen Delivery Exam Const: General: comfortable and no acute distress Other: , female, nontoxic appearance HENMT: Face/Nose/Sinus: Normal nares present Mouth: Yes moist mucous membranes Eyes: General: appearance normal, both eyes and all related structures Sclera: sclerae normal Pupils: Equal, round and reactive pupils present EOM: EOMs intact bilaterally Resp: Effort & Inspection: normal respiratory effort Auscultation: clear to auscultation bilaterally Cardio: Rate: regular rate Rhythm: abnormal rhythm Other: S1-S2 present without murmur, rub, ectopy GI: Other: Abdomen soft, nondistended, nontender. Normoactive bowel sounds in all quadrants. Skin: General skin exam: normal color and no rashes or lesions noted Wounds: no wounds Neuro: General: gait normal Speech: normal speech Motor exam (neuro): 5/5 motor strength present throughout Sensory Exam: normal sensation Other: A&O x4 Extrem: Other: trace edema to BLE, symmetric. Psych: Mental Status: mental status grossly normal Affect: normal affect Other: Good insight and judgment, very pleasant H&P: Results Labs Labs: Short CBC 09/16/24 Range/Units 13:03 WBC 7.4 (4.5-10.0) K/mm3 Hgb 13.3 (12.0-15.0) g/dL Hct 41.7 (37.0-47.0) % Plt Count 234 (150-375) k/mm3 BMP 09/16/24 13:03 Sodium 137 Potassium 5.1 H Chloride 105 Carbon Dioxide 23 BUN 29 H Creatinine 1.49 H Glucose 283 H Calcium 9.7 Cardiac Enzymes 09/16/24 09/16/24 Range/Units 13:03 15:49 Troponin I < 0.012 < 0.012 (0.000-0.034) ng/mL Liver Function 09/16/24 Range/Units 13:03 Total Bilirubin 0.6 (0.2-1.3) mg/dL AST 39 H (14-36) U/L ALT 25 (6-35) U/L Alkaline Phosphatase 90 (38-126) U/L Albumin 4.2 (3.5-5.1) g/dL Assessment and Plan Assessment and plan (1) Atrial fibrillation with rapid ventricular response: Code(s): I48.91 - Unspecified atrial fibrillation Status: Acute Assessment and Plan: - EKG, initial: AFib RVR, rate 131, borderline ST-T-wave abnormality in high lateral leads. - repeat EKG showing possible Atrial Flutter - hx of Afib on metoprolol and Xarelto. Unclear how long patient has been in AFib as she was previously asymptomatic before discovering tachycardia at nephrology appointment. Will hold home metoprolol, now on Cardizem gtt and rate controlled. Continue Xarelto. - Cardizem gtt at 10 mg/hr -> HR 104 - cardiology consulted - admission to IMU with telemetry monitoring (2) Elevated brain natriuretic peptide (BNP) level: Code(s): R79.89 - Other specified abnormal findings of blood chemistry Status: Acute Assessment and Plan: - BNP 5080 - most recent echo (03/2023): Normal LV systolic function, estimated EF 60 65%, grade 3 diastolic dysfunction. See report for full details. - currently on: Lasix 20 mg daily, continue with same as the patient is not volume overloaded on exam - monitor I&Os and daily weights - trend renal function (3) DM2 (diabetes mellitus, type 2): Qualifiers: Diabetes mellitus superintendent terminal insulin use: without superintendent terminal use Diabetes mellitus complication status: without complication Qualified Code(s): E11.9 - Type 2 diabetes mellitus without complications Code(s): E11.9 - Type 2 diabetes mellitus without complications Status: Chronic Assessment and Plan: - hypoglycemia protocol - POC blood glucose ACHS - home medication: Hold Jardiance, glipizide - correct regimen ordered - high dose TIDWM, based off BMI - A1C 7.9% 03/2023, update (4) Anemia: Qualifiers: Anemia type: due to chronic kidney disease Chronic kidney disease stage : stage 3 (moderate) Chronic kidney disease stage 3 subtype: stage 3b (GFR 30- 44) Qualified Code(s): N18.32 - Chronic kidney disease, stage 3b; D63.1 - Anemia in chronic kidney disease Code(s): D64.9 - Anemia, unspecified Status: Chronic Assessment and Plan: - Hgb 13.3 - Hx of CKD, likely anemia due to chronic illness/CKD - transfuse if <7 - trend H&H (5) Chronic kidney disease, stage 3b: Code(s): N18.32 - Chronic kidney disease, stage 3b Status: Chronic Assessment and Plan: - creatinine 1.49 and GFR 34, previously 1.37 and GFR 38 on 09/06/2024 - follows with Stephanie GOODMAN - trend renal function - trend electrolytes, correct as needed (6) HTN (hypertension): Qualifiers: Hypertension type: unspecified Qualified Code(s): I10 - Essential (primary) hypertension Code(s): I10 - Essential (primary) hypertension Status: Chronic Assessment and Plan: - chronic, currently 110/76 - hold home medications -> lisinopril and metoprolol. - monitor Plan Diet: Diabetic GI Prophylaxis: Not currently indicated DVT Prophylaxis: Xarelto IV fluids: 1L bolus Lines/Tubes: Peripheral IV Code Status: Full code Quality VTE Prophylaxis VTE prophylaxis: pharmacologic ordered Hospitalist MIPS Advance Care Plan I have confirmed that the patient's Advanced Care Plan is present, code status is documented, or surrogate decision maker is listed in patient medical record.: Yes Medication Reconciliation I have utilized all available resources to obtain, update and review the patients current medications (includes all prescriptions, OTC, herbals, cannabis, and nutritional supplements).: Yes
--- NOTE | 2024-09-16 17:07 | PC.NURSE ---
attempted to call report at 1652 and waited on hold for 8 minuets after getting the bed at 1633, pt is being sent up per protocol
--- NOTE | 2024-09-16 17:15 | PC.NURSE ---
report was given at 1714 to LOUIS Bustamante
--- NOTE | 2024-09-16 17:29 | ADMGEN ---
This patient, Jocelyn Norman, was admitted to IMU Room 211-01. Patient/family oriented to hospital policies and general routines including ID bracelet, bed and alarms, visiting hours, pain management, procedures, bathroom and other care routines, personal items, smoking policy, room service/diet, and visiting hours. Information on how to activate the Rapid Response Team has been discussed. Patient/Family are encouraged to report perceived risks to care and to ask questions if they do not understand what they are told or what they should do.
[2024-09-16 19:13] LABS: Troponin I < 0.012 ng/mL (0.000-0.034)
[2024-09-16 21:18] LABS: Glucose Point of Care 185 mg/dl (65-105)
[2024-09-16] MEDS: dilTIAZem 100 MG/100 ML 100 MG/100 ML BAG 10 MG IV CONT (23:47)
[2024-09-17] VITALS (20 sets, daily range): BP systolic 102–134; BP diastolic 40–96; PULSE 65–110; RESP 16–20; TEMP 36.5–37.1; O2SAT 94–100
--- NOTE | 2024-09-17 | ECHO_ITS ---
Patient Info Name: Jocelyn Norman Age: 74 years : 1950 Gender: Female Ht: 65 in Wt: 265 lbs BSA: 2.41 m2 HR: 81 bpm BP: 122 / 96 mmHg Technical Quality: Good Exam Date: 09/17/2024 8:07 AM Patient Status: I Admit Date: 09/17/2024 Exam Type: CA echo doppler color flow Complete two-dimensional, color flow and Doppler transthoracic echocardiogram is performed. Staff Referring Physician: Norris Hernandez Transport Pilot: Nayeli Batista Attending Provider: Roberto Trejo Summary 1. Left ventricular chamber dimension is normal. 2. Left ventricular systolic function is normal, estimated at 55-60. 3. There is mildly increased left ventricular wall thickness. 4. Right ventricular systolic function is normal. 5. Right atrial chamber dimension is moderately enlarged. 6. There is mild mitral valve regurgitation. 7. There is mild tricuspid valve regurgitation. Left Ventricle Left ventricular chamber dimension is normal. Left ventricular systolic function is normal, estimated at 55-60. There is mildly increased left ventricular wall thickness. The left ventricular diastolic function is abnormal. Right Ventricle Right ventricular chamber dimension is normal. Right ventricular systolic function is normal. Left Atria Left atrial chamber dimension is normal. Right Atria Right atrial chamber dimension is moderately enlarged. Atrial Septum Intact interatrial septum visualized by color flow imaging. Aortic Valve The aortic valve is trileaflet. There is no aortic valve stenosis. There is no aortic valve regurgitation. Pulmonic Valve The pulmonic valve is not well visualized. There is trace pulmonic regurgitation. Mitral Valve There is mild mitral valve regurgitation. Tricuspid Valve There is mild tricuspid valve regurgitation. Pericardium/Pleural The pericardium appears epicardial fat pad. There is no pericardial effusion. Inferior Vena Cava Normal inferior vena cava with >50% collapse upon inspiration consistent with normal right atrial pressure, 3 mmHg. Aorta The aortic root size at the sinus of Valsalva is normal. Left Ventricular Outflow Tract Name Value Normal LVOT 2D LVOT Diameter 2.2 cm LVOT Doppler LVOT Peak Velocity 104 cm/s LVOT Peak Gradient 4 mmHg LVOT Mean Gradient 3 mmHg LVOT VTI 22 cm LVOT VTI/AV VTI Ratio 0.6 LVOT Stroke Volume 80 ml LVOT CO 8.7 l/min LVOT CI 3.6 l/min/m2 Pulmonic Valve Name Value Normal PV Doppler PV Peak Velocity 88 cm/s PV Peak Gradient 3 mmHg Mitral Valve Name Value Normal MV Regurgitation Doppler MR Peak Gradient 74 mmHg MV Diastolic Function MV E Peak Velocity 110 cm/s MV A Peak Velocity 31 cm/s MV E/A 3.5 MV Decel Time (PW) 155 ms MV Annular TDI MV E/e' (Septal) 11.5 MV E/e' (Lateral) 14.4 MV E/e' (Average) 12.9 Tricuspid Valve Name Value Normal TV Regurgitation Doppler TR Peak Velocity 280 cm/s TR Peak Gradient 31 mmHg Estimated PAP/RSVP RA Pressure 3 mmHg <=5 PA Systolic Pressure 34 mmHg <36 RV Systolic Pressure 34 mmHg <36 TV Annular TDI TV Lateral Delia s' Velocity 10.8 cm/s >=9.5 Aortic Valve Name Value Normal AV Doppler AV Peak Velocity 175 cm/s AV Peak Gradient 12 mmHg AV Mean Gradient 7 mmHg AV VTI 39 cm AV Area (Cont Eq VTI) 2.0 cm2 >=3.0 AV Area (Cont Eq Dante) 2.2 cm2 AV DI (Dante) 0.60 AV Regurgitation 2D LVOT Area 3.6 cm2 Ventricles Name Value Normal LV Dimensions 2D/MM IVS Diastolic Thickness (2D) 1.1 cm 0.6-1.0 LVID Diastole (2D) 5.6 cm 3.8-5.2 LVIW Diastolic Thickness (2D) 1.1 cm 0.6-0.9 LVID Systole (2D) 3.4 cm 2.2-3.5 LVOT Diameter 2.2 cm LV Mass (2D Cubed) 240.22 g 67.00-162.00 LV Mass Index (2D Cubed) 100 g/m2 43-95 Relative Wall Thickness (2D) 0.38 <=0.42 LV Fractional Shortening/Ejection Fraction 2D/MM LV Fractional Shortening (2D) 38 % 27-45 LV EF (2D Teichholz) 68 % LV Diastolic Volume (4C MOD) 88 ml LV EF (4C MOD) 57 % LV Diastolic Volume (2C MOD) 105 ml LV EF (2C MOD) 56 % LV Diastolic Volume (BP MOD) 96 ml 46-106 LV Diastolic Volume Index (BP MOD) 40 ml/m2 29-61 LV Systolic Volume (BP MOD) 42 ml 14-42 LV Systolic Volume Index (BP MOD) 17 ml/m2 8-24 LV EF (BP MOD) 56 % 54-74 LV Diastolic Length (4C) 7.6 cm LV Systolic Length (4C) 6.4 cm LV Stroke Volume (4C MOD) 50 ml Atria Name Value Normal LA Dimensions LA Volume (4C A-L) 41 ml LA Volume (BP A-L) 50 ml RA Dimensions RA Systolic Major [place] Length (4C) 6.0 cm 2.2-2.8 RA Area (4C) 21.6 cm2 <=18.0 Report Signatures
[2024-09-17 04:42] LABS: Basophils Absolute Auto 0.1 K/mm3 (0.0-0.1); Basophils Percent Auto 1.2 % (0.2-1.2); Eosinophils Absolute Auto 0.4 K/mm3 (0-0.3); Hematocrit 38.2 % (37.0-47.0); Hemoglobin 12.2 g/dL (12.0-15.0); Immature Granulocyte Absolute 0.02 K/mm3 (0.00-0.031); Immature Granulocyte Percent A 0.3 % (0-0.5); Lymphocytes Absolute Auto 2.93 K/mm3 (0.9-3.2); Lymphocytes Percent Auto 39.6 % (18.3-44.2); Mean Corpuscular HGB Conc 31.9 g/dl (32-36); Mean Corpuscular Volume 94.1 fl (80-100); Mean Platelet Volume 10.7 fl (7.4-10.4); Monocytes Absolute Auto 0.7 K/mm3 (0.1-0.6); Monocytes Percent Auto 9.1 % (2.6-8.5); Neutrophils Absolute Auto 3.2 K/mm3 (1.3-6.7); Neutrophils Percent Auto 43.8 % (45.5-73.1); Platelet Count Result 201 k/mm3 (150-375); Red Blood Count 4.06 M/mm3 (4.2-5.4); Red Cell Distribution Width 13.7 % (11.5-14.5); White Blood Count 7.4 K/mm3 (4.5-10.0)
[2024-09-17 05:04] LABS: Alanine Aminotransferase 22 U/L (6-35); Albumin Level 3.7 g/dL (3.5-5.1); Alkaline Phosphatase 78 U/L (38-126); Anion Gap 9 mmol/L (4-12); Aspartate Amino Transferase 38 U/L (14-36); Bilirubin,Total 0.6 mg/dL (0.2-1.3); Blood Urea Nitrogen 27 mg/dL (7-17); Calcium 9.4 mg/dL (8.4-10.2); Carbon Dioxide 20 mmol/L (22-30); Chloride 107 mmol/L (98-107); Estimated CRCL calculation 41 ml/min; Estimated Glomerular Filt Rate 35; Glucose 183 mg/dL (65-110); Potassium 4.7 mmol/L (3.4-5.0); Sodium 136 mmol/L (137-145); Total Protein 7.1 g/dL (6.3-8.2)
[2024-09-17 05:17] LABS: Hemoglobin A1C 8.1 % (<5.7)
[2024-09-17 07:18] LABS: Glucose Point of Care 173 mg/dl (65-105)
[2024-09-17] MEDS: dilTIAZem 100 MG/100 ML 100 MG/100 ML BAG 10 MG IV CONT ×2 (08:42→18:45)
[2024-09-17] MEDS: CYANOCOBALAMIN 1,000 MCG TABLET 2000 MCG PO (08:45)
[2024-09-17] MEDS: SERTRALINE HCL 50 MG TABLET PO (08:45)
[2024-09-17] MEDS: CYANOCOBALAMIN 500 MCG TABLET PO (08:45)
[2024-09-17] MEDS: FUROSEMIDE 20 MG TABLET PO (08:45)
[2024-09-17] MEDS: CHOLECALCIFEROL (VITAMIN D3) 25 MCG (1,000 UNITS) TABLET PO (08:45)
[2024-09-17] MEDS: FERROUS SULFATE 325 MG TABLET DR BY MOUTH (08:45)
[2024-09-17] MEDS: METOPROLOL SUCCINATE EXT REL 25 MG TABCR PO (08:45)
--- NOTE | 2024-09-17 09:50 | P.CONCA_ITS ---
Assessment and Plan Assessment and plan (1) Atrial fibrillation: Qualifiers: Atrial fibrillation type: unspecified Qualified Code(s): I48.91 - Unspecified atrial fibrillation Code(s): I48.91 - Unspecified atrial fibrillation Status: Acute Assessment and Plan: Paroxysmal atrial fibrillation diagnosed in 2022. Presents with asymptomatic recurrence of atrial fibrillation with rapid ventricular response. * Rate controlled on diltiazem drip * Will plan for DCCV tomorrow with ELLY prior to rule out thrombus as she can't say with certainty that she hasn't missed any doses of Xarelto recently. Will have anesthesia assist (BMI 43). * Continue a/c with Xarelto (2) Elevated brain natriuretic peptide (BNP) level: Code(s): R79.89 - Other specified abnormal findings of blood chemistry Status: Acute Assessment and Plan: Probably related to tachycardia. She does also have grade III diastolic dysfunction, but clinically does not appear to be in heart failure. (3) HTN (hypertension): Qualifiers: Hypertension type: unspecified Qualified Code(s): I10 - Essential (primary) hypertension Code(s): I10 - Essential (primary) hypertension Status: Chronic Assessment and Plan: At goal. History of Present Illness History of Present Illness Consult date/time: 09/17/24 09:50 Requesting physician: Evy Catalan APRN Consult reason: atrial fibrillation Reason For Visit: Afib with rvr, Elevated bnp Narrative: Jocelyn Beaulieu is a 74 year old female with hypertension, hyperlipidemia, type 2 diabetes mellitus, chronic kidney disease, and paroxysmal atrial fibrillation. She was sent to the emergency room from Dr. Brown's office because her heart rate in the office was in the 150's. She was asymptomatic. She has been placed on a diltiazem drip and is now rate controlled. She is not having any chest pain, shortness of breath, palpitations, orthopnea. She has chronic lowered extremity edema secondary to lymphedema. At the time of my evaluation, she is lying comfortably in bed does not have any active complaints. Review of Systems 2 Review of Systems: All systems reviewed & are unremarkable except as noted in HPI and below PMFSH Past Medical History Medical History Atrial fibrillation Dx Mar 2023; on anticoagulation Obesity Hypertension Chronic kidney disease Diabetes mellitus DM2 (diabetes mellitus, type 2) HTN (hypertension) Social History Social History Smoking packs per day: 0.25 Smoking cigarettes per day: 5.0 Years smoked: 4 Smoking pack-years: 1.00 Smoking status: Former smoker Tobacco type: cigarettes Second hand tobacco smoke exposure: No Smoking end date: 04/03/74 Alcohol intake: current Drinks per week: 2 Alcohol use details: last drink was July 15 - . drinks q3 weeks Substance use: never Substance use type: does not use Other substance usage details: occasional hit of marijuana Last use: 03/19/23 Do You Feel Safe in your Home?: Yes Lack of Transportation: No Lack of Food: Never True Current Housing: I Have Housing Concerned About Future Housing: No Difficulty Paying Gas/Electric Bills: No Difficulty Paying for Meds: No Currently Unemployed: No Education: Bachelor's Degree Difficulty w/ Childcare or Family Care: No Living arrangements: alone Gender identity (if verbalized by the patient): Female Spiritual care concerns: No Meds Home Medications and Allergies Home Medications ?Medication ?Instructions ?Recorded ?Confirmed ?Type sertraline 100 mg tablet 50 mg PO DAILY 09/30/20 09/16/24 History atorvastatin 40 mg tablet 40 mg PO DAILY 03/20/23 09/16/24 History glipizide 10 mg tablet 20 mg PO HS 03/20/23 09/16/24 History loratadine 10 mg tablet 10 mg PO DAILY PRN Allergy Symptoms 03/20/23 09/16/24 History atorvastatin 40 mg tablet 40 mg PO HS 08/15/23 09/16/24 History furosemide 20 mg tablet 20 mg PO DAILY 08/15/23 09/16/24 History rivaroxaban 20 mg tablet (Xarelto) 20 mg PO HS 08/15/23 09/16/24 History empagliflozin 10 mg tablet 10 mg PO DAILY 09/18/23 09/16/24 History (Jardiance) lisinopril 10 mg tablet 10 mg PO DAILY #30 tabs 09/18/23 09/16/24 Rx biotin 5 mg tablet 5 mg PO DAILY 09/16/24 09/16/24 History cholecalciferol (vitamin D3) 25 25 mcg PO DAILY 09/16/24 09/16/24 History mcg (1,000 unit) capsule (Vitamin D3) ferrous sulfate 325 mg (65 mg 325 mg PO DAILY 09/16/24 09/16/24 History iron) tablet (Iron (ferrous sulfate)) mecobalamin (vitamin B12) 2,500 2,500 mcg PO DAILY 09/16/24 09/16/24 History mcg chewable tablet metoprolol succinate 25 mg 25 mg PO DAILY 09/16/24 09/16/24 History tablet,extended release 24 hr Allergies Allergy/AdvReac Type Severity Reaction Status Date / Time No Known Allergies Allergy Verified 09/16/24 17:28 Vital Signs Vital Signs - 24 hr 09/16/24 12:54 09/16/24 12:57 09/16/24 13:03 Temperature 36.7 C Pulse Rate 128 H 131 H 133 H Respiratory Rate 28 H 18 Blood Pressure 126/97 H 126/97 H Pulse Oximetry 97 96 Oxygen Delivery Room Air 09/16/24 13:05 09/16/24 13:06 09/16/24 13:14 Temperature Pulse Rate 132 H 141 H 125 H Respiratory Rate 19 17 Blood Pressure 124/98 H 124/98 H Pulse Oximetry 98 99 Oxygen Delivery 09/16/24 13:16 09/16/24 13:50 09/16/24 13:50 Temperature Pulse Rate 132 H 127 H 126 H Respiratory Rate 19 17 18 Blood Pressure 108/79 133/99 H 133/99 H Pulse Oximetry 98 99 100 Oxygen Delivery 09/16/24 14:01 09/16/24 14:12 09/16/24 14:28 Temperature Pulse Rate 99 114 H 121 H Respiratory Rate 17 Blood Pressure 114/91 H 114/91 H Pulse Oximetry 98 Oxygen Delivery 09/16/24 14:30 09/16/24 14:31 09/16/24 14:31 Temperature Pulse Rate 103 H 122 H 92 Respiratory Rate 15 15 13 Blood Pressure 116/103 H 117/91 H 117/91 H Pulse Oximetry 99 99 99 Oxygen Delivery 09/16/24 14:55 09/16/24 15:22 09/16/24 15:23 Temperature Pulse Rate 124 H 117 H 124 H Respiratory Rate 18 23 H Blood Pressure 115/100 H 104/77 104/77 Pulse Oximetry 100 96 Oxygen Delivery 09/16/24 15:44 09/16/24 16:55 09/16/24 17:30 Temperature 36.8 C Pulse Rate 120 H 104 H 83 Respiratory Rate 16 25 H 22 H Blood Pressure 100/71 110/76 111/75 Pulse Oximetry 98 99 97 Oxygen Delivery 09/16/24 18:00 09/16/24 19:33 09/16/24 20:00 Temperature 36.6 C Pulse Rate 95 102 H Respiratory Rate 16 Blood Pressure 105/60 Pulse Oximetry 99 Oxygen Delivery Room Air 09/16/24 20:00 09/16/24 20:00 09/16/24 22:00 Temperature Pulse Rate 83 77 102 H Respiratory Rate Blood Pressure 105/60 128/70 Pulse Oximetry Oxygen Delivery 09/16/24 22:00 09/16/24 23:47 09/16/24 23:49 Temperature 36.9 C Pulse Rate 88 98 86 Respiratory Rate 17 Blood Pressure 134/83 134/83 Pulse Oximetry 98 Oxygen Delivery 09/17/24 00:00 09/17/24 00:00 09/17/24 00:00 Temperature Pulse Rate 86 93 Respiratory Rate Blood Pressure 134/83 Pulse Oximetry Oxygen Delivery Room Air 09/17/24 02:00 09/17/24 02:00 09/17/24 02:09 Temperature 36.9 C Pulse Rate 110 H 110 H 110 H Respiratory Rate 17 Blood Pressure 128/77 128/77 Pulse Oximetry 97 Oxygen Delivery 09/17/24 03:45 09/17/24 04:00 09/17/24 04:00 Temperature 36.6 C Pulse Rate 91 91 Respiratory Rate 17 Blood Pressure 118/72 118/72 Pulse Oximetry 99 Oxygen Delivery Room Air 09/17/24 04:00 09/17/24 06:00 09/17/24 06:00 Temperature Pulse Rate 90 81 81 Respiratory Rate Blood Pressure 122/96 H Pulse Oximetry Oxygen Delivery 09/17/24 06:09 09/17/24 08:00 09/17/24 08:00 Temperature 36.5 C 36.7 C Pulse Rate 81 65 65 Respiratory Rate 17 16 Blood Pressure 122/96 H 125/80 125/80 Pulse Oximetry 94 98 Oxygen Delivery 09/17/24 08:00 09/17/24 08:00 09/17/24 08:42 Temperature Pulse Rate 94 68 84 Respiratory Rate 16 Blood Pressure 110/64 Pulse Oximetry 98 Oxygen Delivery Room Air 09/17/24 08:42 09/17/24 08:45 Temperature Pulse Rate 84 94 Respiratory Rate Blood Pressure 110/64 Pulse Oximetry Oxygen Delivery Exam 2 Const: General: comfortable, no acute distress, alert and awake O rientation/consciousness: patient oriented x3 HENMT: Head: normal to inspection Eyes: General: appearance normal, both eyes and all related structures P upils: Equal, round and reactive pupils present Neck: Neck: normal visual inspection and supple Carotids: normal carotid upstroke Resp: Effort & Inspection: normal respiratory effort Auscultation: clear to auscultation bilaterally Cardio: Rate: regular rate Rhythm: abnormal rhythm irregularly irregular Heart sounds: S1 normal heart sound present, S2 normal heart sound present and no murmurs GI: Auscultation: normal bowel sounds Skin: General skin exam: normal color Neuro: General: patient oriented x3 Cranial nerves: Yes Equal, round and reactive pupils present Extrem: General: edema Psych: Appearance: grossly normal Mental Status: mental status grossly normal Results Labs and Meds 09/17/24 04:13 09/17/24 04:13 Lab results: Cardiac Enzymes 09/16/24 09/16/24 09/16/24 Range/Units 13:03 15:49 18:46 AST 39 H (14-36) U/L Troponin I < 0.012 < 0.012 < 0.012 (0.000-0.034) ng/mL 09/17/24 Range/Units 04:13 AST 38 H (14-36) U/L Troponin I (0.000-0.034) ng/mL Coagulation 09/16/24 Range/Units 13:03 PT 20.8 H (11.1-14.7) Seconds APTT 34.3 (22.3-36.8) Seconds CBC 09/16/24 09/17/24 Range/Units 13:03 04:13 WBC 7.4 7.4 (4.5-10.0) K/mm3 RBC 4.47 4.06 L (4.2-5.4) M/mm3 Hgb 13.3 12.2 (12.0-15.0) g/dL Hct 41.7 38.2 (37.0-47.0) % Plt Count 234 201 (150-375) k/mm3 Lymph # (Auto) 2.36 2.93 (0.9-3.2) K/mm3 [place] # (Auto) 0.7 H 0.7 H (0.1-0.6) K/mm3 Eos # (Auto) 0.3 0.4 H (0-0.3) K/mm3 Baso # (Auto) 0.1 0.1 (0.0-0.1) K/mm3 Comprehensive Metabolic Panel 09/16/24 09/17/24 Range/Units 13:03 04:13 Sodium 137 136 L (137-145) mmol/L Potassium 5.1 H 4.7 (3.4-5.0) mmol/L Chloride 105 107 (98-107) mmol/L Carbon Dioxide 23 20 L (22-30) mmol/L BUN 29 H 27 H (7-17) mg/dL Creatinine 1.49 H 1.46 H (0.7-1.0) mg/dL Glucose 283 H 183 H (65-110) mg/dL Calcium 9.7 9.4 (8.4-10.2) mg/dL AST 39 H 38 H (14-36) U/L ALT 25 22 (6-35) U/L Alkaline Phosphatase 90 78 (38-126) U/L Total Protein 8.0 7.1 (6.3-8.2) g/dL Albumin 4.2 3.7 (3.5-5.1) g/dL Intake and Output 09/16/24 09/17/24 09/17/24 23:59 07:59 15:59 Intake Total 66.2 62.2 27 Balance 66.2 62.2 27 Intake: IV 66.2 62.2 27 dilTIAZem 100 MG/100 ML 100 mg 66.2 62.2 27 In 100 ml @ 10 MG/HR 10 mls/hr IV CONT .Q10H [facility] Rx#:[id number] Other: # Unmeasured Voids 1 Patient Weight 09/17/24 23:59 Weight 118.8 kg
--- NOTE | 2024-09-17 09:53 | PM.IMPN ---
Progress Note: A&P Assessment and Plan (1) Atrial fibrillation with rapid ventricular response: Code(s): I48.91 - Unspecified atrial fibrillation Status: Acute Assessment and Plan: - EKG, initial: AFib RVR, rate 131, borderline ST-T-wave abnormality in high lateral leads. - repeat EKG showing possible Atrial Flutter - hx of Afib on metoprolol and Xarelto. Unclear how long patient has been in AFib as she was previously asymptomatic before discovering tachycardia at nephrology appointment. Will hold home metoprolol, now on Cardizem gtt and rate controlled. Continue Xarelto. - Cardizem gtt at 10 mg/hr -> HR 104 - cardiology consulted and plan for DCCV tomorrow with ELLY prior to rule out thrombus - admission to IMU with telemetry monitoring (2) Elevated brain natriuretic peptide (BNP) level: Code(s): R79.89 - Other specified abnormal findings of blood chemistry Status: Acute Assessment and Plan: - BNP 5080 - most recent echo (03/2023): Normal LV systolic function, estimated EF 60 65%, grade 3 diastolic dysfunction. See report for full details. 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: without correction use Qualified Code(s): E11.9 - Type 2 diabetes mellitus without complications Code(s): E11.9 - Type 2 diabetes mellitus without complications Status: Chronic Assessment and Plan: - hypoglycemia protocol - POC blood glucose ACHS - home medication: Hold Jardiance, glipizide - correct regimen ordered - high dose TIDWM, based off BMI - A1C 7.9% 03/2023, update (4) Anemia: Qualifiers: Anemia type: due to chronic kidney disease Chronic kidney disease stage: stage 3 (moderate) Chronic kidney disease stage 3 subtype: stage 3b (GFR 30-44) Qualified Code(s): N18.32 - Chronic kidney disease, stage 3b; D63.1 - Anemia in chronic kidney disease Code(s): D64.9 - Anemia, unspecified Status: Chronic Assessment and Plan: - Hgb 13.3 - Hx of CKD, likely anemia due to chronic illness/CKD - transfuse if <7 - trend H&H (5) Chronic kidney disease, stage 3b: Code(s): N18.32 - Chronic kidney disease, stage 3b Status: Chronic Assessment and Plan: - creatinine 1.49 and GFR 34, previously 1.37 and GFR 38 on 09/06/2024 - follows with Stephanie GOODMAN - trend renal function - trend electrolytes, correct as needed (6) HTN (hypertension): Qualifiers: Hypertension type: unspecified Qualified Code(s): I10 - Essential (primary) hypertension Code(s): I10 - Essential (primary) hypertension Status: Chronic Assessment and Plan: - chronic, currently 110/76 - hold home medications -> lisinopril and metoprolol. 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 Currently feels better. Cardiology with patient and plan for DCCV tomorrow with ELLY prior to rule out thrombus Review of Systems Review of Systems: All systems reviewed & are unremarkable except as noted in HPI and below Exam Narrative: irregular, normal rate. trace edema to BLE, symmetric. Const: General: comfortable and no acute distress Other: , female, nontoxic appearance HENMT: Face/Nose/Sinus: Normal nares present Mouth: Yes moist mucous membranes Eyes: General: appearance normal, both eyes and all related structures Sclera: sclerae normal Pupils: Equal, round and reactive pupils present EOM: EOMs intact bilaterally Resp: Effort & Inspection: normal respiratory effort Auscultation: clear to auscultation bilaterally Cardio: Rate: regular rate Rhythm: abnormal rhythm Other: S1-S2 present without murmur, rub, ectopy GI: Other: Abdomen soft, nondistended, nontender. Normoactive bowel sounds in all quadrants. Skin: General skin exam: normal color and no rashes or lesions noted Wounds: no wounds Neuro: General: gait normal Cranial nerves: Yes Equal, round and reactive pupils present Speech: normal speech Motor exam (neuro): 5/5 motor strength present throughout Sensory Exam: normal sensation Other: A&O x4 Extrem: Other: trace edema to BLE, symmetric. Psych: Mental Status: mental status grossly normal Affect: normal affect Other: Good insight and judgment, very pleasant Objective Data Vital Signs Vital Signs: Vital Signs - 24 hr 09/16/24 12:54 09/16/24 12:57 09/16/24 13:03 Temperature 98.1 F Pulse Rate 128 H 131 H 133 H Respiratory Rate 28 H 18 Blood Pressure 126/97 H 126/97 H Pulse Oximetry 97 96 Oxygen Delivery Room Air 09/16/24 13:05 09/16/24 13:06 09/16/24 13:14 Temperature Pulse Rate 132 H 141 H 125 H Respiratory Rate 19 17 Blood Pressure 124/98 H 124/98 H Pulse Oximetry 98 99 Oxygen Delivery 09/16/24 13:16 09/16/24 13:50 09/16/24 13:50 Temperature Pulse Rate 132 H 127 H 126 H Respiratory Rate 19 17 18 Blood Pressure 108/79 133/99 H 133/99 H Pulse Oximetry 98 99 100 Oxygen Delivery 09/16/24 14:01 09/16/24 14:12 09/16/24 14:28 Temperature Pulse Rate 99 114 H 121 H Respiratory Rate 17 Blood Pressure 114/91 H 114/91 H Pulse Oximetry 98 Oxygen Delivery 09/16/24 14:30 09/16/24 14:31 09/16/24 14:31 Temperature Pulse Rate 103 H 122 H 92 Respiratory Rate 15 15 13 Blood Pressure 116/103 H 117/91 H 117/91 H Pulse Oximetry 99 99 99 Oxygen Delivery 09/16/24 14:55 09/16/24 15:22 09/16/24 15:23 Temperature Pulse Rate 124 H 117 H 124 H Respiratory Rate 18 23 H Blood Pressure 115/100 H 104/77 104/77 Pulse Oximetry 100 96 Oxygen Delivery 09/16/24 15:44 09/16/24 16:55 09/16/24 17:30 Temperature 98.2 F Pulse Rate 120 H 104 H 83 Respiratory Rate 16 25 H 22 H Blood Pressure 100/71 110/76 111/75 Pulse Oximetry 98 99 97 Oxygen Delivery 09/16/24 18:00 09/16/24 19:33 09/16/24 20:00 Temperature 97.8 F Pulse Rate 95 102 H Respiratory Rate 16 Blood Pressure 105/60 Pulse Oximetry 99 Oxygen Delivery Room Air 09/16/24 20:00 09/16/24 20:00 09/16/24 22:00 Temperature Pulse Rate 83 77 102 H Respiratory Rate Blood Pressure 105/60 128/70 Pulse Oximetry Oxygen Delivery 09/16/24 22:00 09/16/24 23:47 09/16/24 23:49 Temperature 98.4 F Pulse Rate 88 98 86 Respiratory Rate 17 Blood Pressure 134/83 134/83 Pulse Oximetry 98 Oxygen Delivery 09/17/24 00:00 09/17/24 00:00 09/17/24 00:00 Temperature Pulse Rate 86 93 Respiratory Rate Blood Pressure 134/83 Pulse Oximetry Oxygen Delivery Room Air 09/17/24 02:00 09/17/24 02:00 09/17/24 02:09 Temperature 98.4 F Pulse Rate 110 H 110 H 110 H Respiratory Rate 17 Blood Pressure 128/77 128/77 Pulse Oximetry 97 Oxygen Delivery 09/17/24 03:45 09/17/24 04:00 09/17/24 04:00 Temperature 97.9 F Pulse Rate 91 91 Respiratory Rate 17 Blood Pressure 118/72 118/72 Pulse Oximetry 99 Oxygen Delivery Room Air 09/17/24 04:00 09/17/24 06:00 09/17/24 06:00 Temperature Pulse Rate 90 81 81 Respiratory Rate Blood Pressure 122/96 H Pulse Oximetry Oxygen Delivery 09/17/24 06:09 09/17/24 08:00 09/17/24 08:00 Temperature 97.7 F 98.0 F Pulse Rate 81 65 65 Respiratory Rate 17 16 Blood Pressure 122/96 H 125/80 125/80 Pulse Oximetry 94 98 Oxygen Delivery 09/17/24 08:00 09/17/24 08:00 09/17/24 08:42 Temperature Pulse Rate 94 68 84 Respiratory Rate 16 Blood Pressure 110/64 Pulse Oximetry 98 Oxygen Delivery Room Air 09/17/24 08:42 09/17/24 08:45 Temperature Pulse Rate 84 94 Respiratory Rate Blood Pressure 110/64 Pulse Oximetry Oxygen Delivery Intake/Output Intake/Output: Intake & Output 09/14/24 09/15/24 09/16/24 09/17/24 23:59 23:59 23:59 23:59 Intake Total 574.4 89.2 Balance 574.4 89.2 Meds/Results Medications: Active Medications Generic Name Dose Route Start Last Admin Trade Name Freq PRN Reason Stop Dose Admin Acetaminophen 650 mg 09/16/24 14:33 Acetaminophen 325 Mg Tablet PO Q4H PRN Mild Pain (1-3) or Fever Atorvastatin Calcium 40 mg 09/17/24 21:00 Atorvastatin 40 Mg Tablet PO HS DESI Cyanocobalamin 500 mcg 09/17/24 09:00 09/17/24 08:45 Cyanocobalamin 500 Mcg Tablet PO 500 mcg QAM DESI Administration Cyanocobalamin 2,000 mcg 09/17/24 09:00 09/17/24 08:45 Cyanocobalamin 1,000 Mcg Tablet PO 2,000 mcg QAM DESI Administration Dextrose 12.5 gm 09/16/24 14:33 Dextrose 50% 25 Gm/50 Ml Syringe IV PUSH PRN PRN Hypoglycemia Protocol Ferrous Sulfate 325 mg 09/17/24 09:00 09/17/24 08:45 Ferrous Sulfate [address] BY MOUTH 325 mg DAILY DESI Administration Furosemide 20 mg 09/17/24 09:00 09/17/24 08:45 Furosemide 20 Mg Tablet PO 20 mg DAILY DESI Administration Glucagon 1 mg 09/16/24 14:33 Glucagon For Inj 1 Mg Vial IM PRN PRN Hypoglycemia Protocol Glucose 15 gm 09/16/24 14:33 Glucose Oral Gel 15 Gm Of Glucse In 37.5 Gm Tube PO PRN PRN Hypoglycemia Protocol Diltiazem HCl 100 mg in 100 mls @ 5 mls/hr 09/16/24 14:02 09/16/24 22:00 Cardizem 100 Mg/100 Ml IV CONT 09/17/24 10:01 10 mg/hr .Q20H STA 10 mls/hr Titration Protocol 5 MG/HR Dextrose 1,000 mls @ 100 mls/hr 09/16/24 14:33 Dextrose 5% 1,000 Ml IVPB PRN PRN Hypoglycemia Protocol Diltiazem HCl 100 mg in 100 mls @ 10 mls/hr 09/16/24 23:45 09/17/24 08:42 Cardizem 100 Mg/100 Ml IV CONT 10 mg/hr .Q10H DESI 10 mls/hr Administration 10 MG/HR Insulin Aspart 4 - 8 units 09/17/24 08:00 09/17/24 08:34 Insulin Aspart (*Bkc) 100 Units/Ml SUB-Q Not Given TIDWM DESI Protocol Loratadine 10 mg 09/16/24 21:19 Loratadine 10 Mg Tablet PO DAILY PRN Allergy Symptoms Metoprolol Succinate 25 mg 09/17/24 09:00 09/17/24 08:45 Metoprolol Succinate Ext Rel 25 Mg Tabcr PO 25 mg DAILY DESI Administration Nitroglycerin 0.4 mg 09/16/24 14:33 Nitroglycerin Sl 0.4 Mg Tablet SUBLINGUAL Q5MIN PRN Chest Pain Nonformulary 0 each 09/16/24 21:51 Nutritional XX 09/17/24 21:50 Supplement PRN PRN Nonformulary Drug ( PROTOCOL Biotin 5 Mg Tablet) Ondansetron HCl 4 mg 09/16/24 14:33 Ondansetron Inj 4 Mg/2 Ml Vial IV PUSH Q4H PRN Nausea Perflutren Lipid Microsphere 0 ml 09/16/24 17:24 Perflutren Lipid Microspheres 1.5 Ml Vial Diluted To 10 Ml Total Volume IV PUSH 09/19/24 17:24 ONCE PRN adequate visualization Protocol Rivaroxaban 20 mg 09/17/24 21:00 Rivaroxaban 20 Mg Tablet PO HS [facility] Sertraline HCl 50 mg 09/17/24 09:00 09/17/24 08:45 Sertraline Hcl 50 Mg Tablet PO 50 mg DAILY [facility] Administration Vitamin D 25 mcg 09/17/24 09:00 09/17/24 08:45 Cholecalciferol (Vitamin D3) 25 Mcg (1,000 Units) Tablet PO 25 mcg DAILY DESI Administration Radiology Results: ITS Impressions Chest X-Ray 09/16/24 13:51 IMPRESSION: 1. No acute cardiopulmonary disease. Labs Labs: Laboratory Results - last 24 hr 09/16/24 09/16/24 09/16/24 13:02 13:03 15:49 WBC 7.4 RBC 4.47 Hgb 13.3 Hct 41.7 MCV 93.3 MCH 29.8 MCHC 31.9 L RDW 13.7 Plt Count 234 MPV 10.6 H Immature Gran % (Auto) 0.4 Neut % (Auto) 52.6 Lymph % (Auto) 31.8 [place] % (Auto) 10.0 H Eos % (Auto) 4.3 Baso % (Auto) 0.9 Lymph # (Auto) 2.36 [place] # (Auto) 0.7 H Eos # (Auto) 0.3 Baso # (Auto) 0.1 Abs Immat Gran (auto) 0.03 Absolute Neuts (auto) 3.9 Absolute Nucleated RBC 0.000 Nucleated RBC % 0.0 PT 20.8 H INR 1.8 APTT 34.3 Sodium 137 Potassium 5.1 H Chloride 105 Carbon Dioxide 23 Anion Gap 9 BUN 29 H Creatinine 1.49 H Estim Creat Clear Calc 38 Estimated GFR 34 L Glucose 283 H POC Capillary Glucose Hemoglobin A1c Calcium 9.7 Magnesium 1.9 Total Bilirubin 0.6 AST 39 H ALT 25 Alkaline Phosphatase 90 Troponin I < 0.012 < 0.012 NT-Pro-B Natriuret Pep 5080 H Total Protein 8.0 Albumin 4.2 Lipase 198 09/16/24 09/16/24 09/17/24 18:46 21:16 04:13 WBC 7.4 RBC 4.06 L Hgb 12.2 Hct 38.2 MCV 94.1 MCH 30.0 MCHC 31.9 L RDW 13.7 Plt Count 201 MPV 10.7 H Immature Gran % (Auto) 0.3 Neut % (Auto) 43.8 L Lymph % (Auto) 39.6 [place] % (Auto) 9.1 H Eos % (Auto) 6.0 H Baso % (Auto) 1.2 Lymph # (Auto) 2.93 [place] # (Auto) 0.7 H Eos # (Auto) 0.4 H Baso # (Auto) 0.1 Abs Immat Gran (auto) 0.02 Absolute Neuts (auto) 3.2 Absolute Nucleated RBC 0.000 Nucleated RBC % 0.0 PT INR APTT Sodium 136 L Potassium 4.7 Chloride 107 Carbon Dioxide 20 L Anion Gap 9 BUN 27 H Creatinine 1.46 H Estim Creat Clear Calc 41 Estimated GFR 35 L Glucose 183 H POC Capillary Glucose 185 H Hemoglobin A1c 8.1 H Calcium 9.4 Magnesium Total Bilirubin 0.6 AST 38 H ALT 22 Alkaline Phosphatase 78 Troponin I < 0.012 NT-Pro-B Natriuret Pep Total Protein 7.1 Albumin 3.7 Lipase 09/17/24 07:07 WBC RBC Hgb Hct MCV MCH MCHC RDW Plt Count MPV Immature Gran % (Auto) Neut % (Auto) Lymph % (Auto) [place] % (Auto) Eos % (Auto) Baso % (Auto) Lymph # (Auto) [place] # (Auto) Eos # (Auto) Baso # (Auto) Abs Immat Gran (auto) Absolute Neuts (auto) Absolute Nucleated RBC Nucleated RBC % PT INR APTT Sodium Potassium Chloride Carbon Dioxide Anion Gap BUN Creatinine Estim Creat Clear Calc Estimated GFR Glucose POC Capillary Glucose 173 H Hemoglobin A1c Calcium Magnesium Total Bilirubin AST ALT Alkaline Phosphatase Troponin I NT-Pro-B Natriuret Pep Total Protein Albumin Lipase Quality VTE Prophylaxis VTE prophylaxis: pharmacologic ordered Hospitalist MIPS Advance Care Plan I have confirmed that the patient's Advanced Care Plan is present, code status is documented, or surrogate decision maker is listed in patient medical record.: Yes Medication Reconciliation I have utilized all available resources to obtain, update and review the patients current medications (includes all prescriptions, OTC, herbals, cannabis, and nutritional supplements).: Yes
[2024-09-17 11:47] LABS: Glucose Point of Care 235 mg/dl (65-105)
--- NOTE | 2024-09-17 11:53 | PCRCNOTE ---
Pt. states she has a CPAP at home but doesn't wear it. Pt. states she doesn't want to bring her unit in or borrow one of ours.
[2024-09-17] MEDS: INSULIN ASPART (*BKC) 100 UNITS/ML SUB-Q (11:55)
[2024-09-17 16:20] LABS: Glucose Point of Care 145 mg/dl (65-105)
[2024-09-17 20:04] LABS: Glucose Point of Care 315 mg/dl (65-105)
[2024-09-17] MEDS: ATORVASTATIN 40 MG TABLET PO (20:53)
[2024-09-17] MEDS: RIVAROXABAN 20 MG TABLET PO (20:53)
[2024-09-17] MEDS: INSULIN ASPART (*BKC) 100 UNITS/ML 6 UNITS SUB-Q (20:55)
[2024-09-18] VITALS (24 sets, daily range): BP systolic 96–134; BP diastolic 50–95; PULSE 46–131; RESP 12–20; TEMP 36.6–37; O2SAT 95–100
[2024-09-18 04:15] LABS: Hematocrit 38.7 % (37.0-47.0); Hemoglobin 12.6 g/dL (12.0-15.0); Mean Corpuscular HGB Conc 32.6 g/dl (32-36); Mean Corpuscular Hemoglobin 30.2 pg (26-34); Mean Corpuscular Volume 92.8 fl (80-100); Mean Platelet Volume 11.1 fl (7.4-10.4); Platelet Count Result 216 k/mm3 (150-375); Red Blood Count 4.17 M/mm3 (4.2-5.4); Red Cell Distribution Width 13.9 % (11.5-14.5); White Blood Count 9.3 K/mm3 (4.5-10.0)
[2024-09-18 04:36] LABS: Alanine Aminotransferase 23 U/L (6-35); Albumin Level 3.9 g/dL (3.5-5.1); Alkaline Phosphatase 81 U/L (38-126); Anion Gap 10 mmol/L (4-12); Aspartate Amino Transferase 43 U/L (14-36); Bilirubin,Total 0.6 mg/dL (0.2-1.3); Blood Urea Nitrogen 31 mg/dL (7-17); Calcium 9.3 mg/dL (8.4-10.2); Carbon Dioxide 22 mmol/L (22-30); Chloride 104 mmol/L (98-107); Estimated CRCL calculation 33 ml/min; Estimated Glomerular Filt Rate 29; Glucose 156 mg/dL (65-110); Magnesium 1.9 mg/dL (1.6-2.3); Potassium 4.2 mmol/L (3.4-5.0); Sodium 136 mmol/L (137-145); Total Protein 7.4 g/dL (6.3-8.2)
[2024-09-18] MEDS: dilTIAZem 100 MG/100 ML 100 MG/100 ML BAG 10 MG IV CONT (05:30)
[2024-09-18 07:14] LABS: Glucose Point of Care 197 mg/dl (65-105)
[2024-09-18] MEDS: CHOLECALCIFEROL (VITAMIN D3) 25 MCG (1,000 UNITS) TABLET PO (08:42)
[2024-09-18] MEDS: FERROUS SULFATE 325 MG TABLET DR BY MOUTH (08:42)
[2024-09-18] MEDS: SERTRALINE HCL 50 MG TABLET PO (08:42)
[2024-09-18] MEDS: METOPROLOL SUCCINATE EXT REL 25 MG TABCR PO (08:42)
[2024-09-18] MEDS: CYANOCOBALAMIN 1,000 MCG TABLET 2000 MCG PO (08:43)
[2024-09-18] MEDS: CYANOCOBALAMIN 500 MCG TABLET PO (08:43)
[2024-09-18] MEDS: FUROSEMIDE 20 MG TABLET PO (08:44)
[2024-09-18] MEDS: LORATADINE 10 MG TABLET PO (08:46)
[2024-09-18 11:55] LABS: Glucose Point of Care 261 mg/dl (65-105)
[2024-09-18] MEDS: INSULIN ASPART (*BKC) 100 UNITS/ML SUB-Q ×2 (12:05→17:04)
--- NOTE | 2024-09-18 12:18 | P.CDI_ITS ---
CDI Query Clarification Request Patient with a BMI of 42.8 please provide a diagnosis to accompany this finding: * Overweight * Obesity * Morbid Obesity * Other/Unknown <Apurva Byrd RN - Last Filed: 09/18/24 12:19> Clarified Diagnosis Clarified Diagnosis: Morbid Obesity <Eulalio Muse MD - Last Filed: 09/18/24 13:18>
--- NOTE | 2024-09-18 13:08 | WPDANESEPPF ---
Anes - Initial Pre Proc Eval Procedure: Operation Date: 09/18/24 14:00 Proposed Procedures p Electrical Cardioversion - Mitch Dunn MD s Trans Esophageal Echo ELLY - Mitch Dunn MD Date/Time: 09/18/24 13:08 Surgeon: Roberto Trejo MD Pre Op Diagnosis: Afib with rvr, Elevated bnp Patient Data Age: 74 Gender: F Height: 1.66 m Weight: 118.4 kg Last Vital Signs Temp 98.1 F 09/18/24 11:56 Pulse 92 09/18/24 11:56 Resp 20 09/18/24 11:56 BP 116/62 09/18/24 11:56 Pulse Ox 100 09/18/24 11:56 O2 Del Method Room Air 09/18/24 04:00 Allergies Allergy/AdvReac Type Severity Reaction Status Date / Time No Known Allergies Allergy Verified 09/16/24 17:28 Home Medications ?Medication ?Instructions ?Recorded ?Confirmed ?Type sertraline 100 mg tablet 50 mg PO DAILY 09/30/20 09/16/24 History atorvastatin 40 mg tablet 40 mg PO DAILY 03/20/23 09/16/24 History glipizide 10 mg tablet 20 mg PO HS 03/20/23 09/16/24 History loratadine 10 mg tablet 10 mg PO DAILY PRN Allergy Symptoms 03/20/23 09/16/24 History atorvastatin 40 mg tablet 40 mg PO HS 08/15/23 09/16/24 History furosemide 20 mg tablet 20 mg PO DAILY 08/15/23 09/16/24 History rivaroxaban 20 mg tablet (Xarelto) 20 mg PO HS 08/15/23 09/16/24 History empagliflozin 10 mg tablet 10 mg PO DAILY 09/18/23 09/16/24 History (Jardiance) lisinopril 10 mg tablet 10 mg PO DAILY #30 tabs 09/18/23 09/16/24 Rx biotin 5 mg tablet 5 mg PO DAILY 09/16/24 09/16/24 History cholecalciferol (vitamin D3) 25 25 mcg PO DAILY 09/16/24 09/16/24 History mcg (1,000 unit) capsule (Vitamin D3) ferrous sulfate 325 mg (65 mg 325 mg PO DAILY 09/16/24 09/16/24 History iron) tablet (Iron (ferrous sulfate)) mecobalamin (vitamin B12) 2,500 2,500 mcg PO DAILY 09/16/24 09/16/24 History mcg chewable tablet metoprolol succinate 25 mg 25 mg PO DAILY 09/16/24 09/16/24 History tablet,extended release 24 hr Laboratory Tests 09/17/24 09/17/24 09/18/24 16:12 20:02 03:25 WBC 9.3 K/mm3 (4.5-10.0) RBC 4.17 L M/mm3 (4.2-5.4) Hgb 12.6 g/dL (12.0-15.0) Hct 38.7 % (37.0-47.0) MCV 92.8 fl (80-100) MCH 30.2 pg (26-34) MCHC 32.6 g/dl (32-36) RDW 13.9 % (11.5-14.5) Plt Count 216 k/mm3 (150-375) MPV 11.1 H fl (7.4-10.4) Sodium 136 L mmol/L (137-145) Potassium 4.2 mmol/L (3.4-5.0) Chloride 104 mmol/L (98-107) Carbon Dioxide 22 mmol/L (22-30) Anion Gap 10 mmol/L (4-12) BUN 31 H mg/dL (7-17) Creatinine 1.73 H mg/dL (0.7-1.0) Estim Creat Clear Calc 33 ml/min Estimated GFR 29 L (59 - ) Glucose 156 H mg/dL (65-110) POC Capillary Glucose 145 H mg/dl 315 H mg/dl (65-105) (65-105) Calcium 9.3 mg/dL (8.4-10.2) Magnesium 1.9 mg/dL (1.6-2.3) Total Bilirubin 0.6 mg/dL (0.2-1.3) AST 43 H U/L (14-36) ALT 23 U/L (6-35) Alkaline Phosphatase 81 U/L (38-126) Total Protein 7.4 g/dL (6.3-8.2) Albumin 3.9 g/dL (3.5-5.1) 09/18/24 09/18/24 07:11 11:48 WBC RBC Hgb Hct MCV MCH MCHC RDW Plt Count MPV Sodium Potassium Chloride Carbon Dioxide Anion Gap BUN Creatinine Estim Creat Clear Calc Estimated GFR Glucose POC Capillary Glucose 197 H mg/dl 261 H mg/dl (65-105) (65-105) Calcium Magnesium Total Bilirubin AST ALT Alkaline Phosphatase Total Protein Albumin Patient hx anesthesia problems: none Family hx anesthesia problems: none Results Review: All pre-operative results and documents have been reviewed as part of the pre-operative evaluation. [facility] Past Medical History Medical History Atrial fibrillation Dx Mar 2023; on anticoagulation Obesity Hypertension Chronic kidney disease Diabetes mellitus DM2 (diabetes mellitus, type 2) HTN (hypertension) Social History Social History Smoking packs per day: 0.25 Smoking cigarettes per day: 5.0 Years smoked: 4 Smoking pack-years: 1.00 Smoking status: Former smoker Tobacco type: cigarettes Second hand tobacco smoke exposure: No Smoking end date: 04/03/74 Alcohol intake: current Drinks per week: 2 Alcohol use details: last drink was July 15 - . drinks q3 weeks Substance use: never Substance use type: does not use Other substance usage details: occasional hit of marijuana Last use: 03/19/23 Do You Feel Safe in your Home?: Yes Lack of Transportation: No Lack of Food: Never True Current Housing: I Have Housing Concerned About Future Housing: No Difficulty Paying Gas/Electric Bills: No Difficulty Paying for Meds: No Currently Unemployed: No Education: Bachelor's Degree Difficulty w/ Childcare or Family Care: No Living arrangements: alone Gender identity (if verbalized by the patient): Female Spiritual care concerns: No Anes - Eval Final PreProcedure Day of Procedure 09/18/24 13:08 Patient weight: morbidly obese Heart: regular rate and rhythm Lungs: clear to auscultation Airway: Mallampati scale class III Neurological: alert and oriented Last oral intake: >/= 8 hours ASA classification: IV Emergent: no Anesthetic plan: proceed Anesthesia type and monitoring: general GIVS and standard monitoring Results Review: All pre-operative results and documents have been reviewed as part of the pre-operative evaluation. Informed Consent: The patient's anesthetic plan and its attendant risks and benefits were discussed with the patient/family/POA. Questions were solicited and answers provided to the satisfaction of the patient/family/POA.
--- NOTE | 2024-09-18 13:18 | PM.IMPN ---
Progress Note: A&P Assessment and Plan (1) Atrial fibrillation with rapid ventricular response: Code(s): I48.91 - Unspecified atrial fibrillation Status: Acute Assessment and Plan: - EKG, initial: AFib RVR, rate 131, borderline ST-T-wave abnormality in high lateral leads. - repeat EKG showing possible Atrial Flutter - hx of Afib on metoprolol and Xarelto. Unclear how long patient has been in AFib as she was previously asymptomatic before discovering tachycardia at nephrology appointment. Will hold home metoprolol, now on Cardizem gtt and rate controlled. Continue Xarelto. - Cardizem gtt at 10 mg/hr -> HR 104 - cardiology consulted and underwent cardioversion and possible discharge tomorrow - admission to IMU with telemetry monitoring (2) Elevated brain natriuretic peptide (BNP) level: Code(s): R79.89 - Other specified abnormal findings of blood chemistry Status: Acute Assessment and Plan: - BNP 5080 - most recent echo (03/2023): Normal LV systolic function, estimated EF 60 65%, grade 3 diastolic dysfunction. See report for full details. 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 Qualified Code(s): E11.9 - Type 2 diabetes mellitus without complications Code(s): E11.9 - Type 2 diabetes mellitus without complications Status: Chronic Assessment and Plan: - hypoglycemia protocol - POC blood glucose ACHS - home medication: Hold Jardiance, glipizide - correct regimen ordered - high dose TIDWM, based off BMI - A1C 7.9% 03/2023, update (4) Anemia: Qualifiers: Anemia type: due to chronic kidney disease Chronic kidney disease stage: stage 3 (moderate) Chronic kidney disease stage 3 subtype: stage 3b (GFR 30-44) Qualified Code(s): N18.32 - Chronic kidney disease, stage 3b; D63.1 - Anemia in chronic kidney disease Code(s): D64.9 - Anemia, unspecified Status: Chronic Assessment and Plan: - Hgb 13.3 - Hx of CKD, likely anemia due to chronic illness/CKD - transfuse if <7 - trend H&H (5) Chronic kidney disease, stage 3b: Code(s): N18.32 - Chronic kidney disease, stage 3b Status: Chronic Assessment and Plan: - creatinine 1.49 and GFR 34, previously 1.37 and GFR 38 on 09/06/2024 - follows with Stephanie GOODMAN - trend renal function - trend electrolytes, correct as needed (6) HTN (hypertension): Qualifiers: Hypertension type: unspecified Qualified Code(s): I10 - Essential (primary) hypertension Code(s): I10 - Essential (primary) hypertension Status: Chronic Assessment and Plan: - chronic, currently 110/76 - hold home medications -> lisinopril and metoprolol. - monitor Plan Diet: Diabetic GI Prophylaxis: Not currently indicated DVT Prophylaxis: Xarelto IV fluids: 1L bolus Lines/Tubes: Peripheral IV Code Status: Full code Subjective Date/time seen: 09/18/24 13:18 Interval history: Patient underwent cardioversion. Discussed with Cardiology and possible discharge tomorrow Review of Systems Review of Systems: All systems reviewed & are unremarkable except as noted in HPI and below Exam Narrative: irregular, normal rate. trace edema to BLE, symmetric. Const: General: comfortable and no acute distress Other: , female, nontoxic appearance HENMT: Face/Nose/Sinus: Normal nares present Mouth: Yes moist mucous membranes Eyes: General: appearance normal, both eyes and all related structures Sclera: sclerae normal Pupils: Equal, round and reactive pupils present EOM: EOMs intact bilaterally Resp: Effort & Inspection: normal respiratory effort Auscultation: clear to auscultation bilaterally Cardio: Rate: regular rate Rhythm: abnormal rhythm Other: S1-S2 present without murmur, rub, ectopy GI: Other: Abdomen soft, nondistended, nontender. Normoactive bowel sounds in all quadrants. Skin: General skin exam: normal color and no rashes or lesions noted Wounds: no wounds Neuro: General: gait normal Cranial nerves: Yes Equal, round and reactive pupils present Speech: normal speech Motor exam (neuro): 5/5 motor strength present throughout Sensory Exam: normal sensation Other: A&O x4 Extrem: Other: trace edema to BLE, symmetric. Psych: Mental Status: mental status grossly normal Affect: normal affect Other: Good insight and judgment, very pleasant Objective Data Vital Signs Vital Signs: Vital Signs - 24 hr 09/17/24 14:00 09/17/24 14:00 09/17/24 14:00 Temperature Pulse Rate 88 92 92 Respiratory Rate Blood Pressure 109/69 109/69 Pulse Oximetry 100 Oxygen Delivery 09/17/24 16:00 09/17/24 16:00 09/17/24 16:00 Temperature 98.4 F Pulse Rate 83 83 Respiratory Rate 20 Blood Pressure 102/40 L 102/40 L Pulse Oximetry 98 Oxygen Delivery Room Air 09/17/24 16:00 09/17/24 18:00 09/17/24 18:00 Temperature Pulse Rate 77 105 H 88 Respiratory Rate Blood Pressure 119/62 Pulse Oximetry Oxygen Delivery 09/17/24 18:00 09/17/24 18:42 09/17/24 18:45 Temperature Pulse Rate 88 97 97 Respiratory Rate Blood Pressure 119/62 102/47 L 102/47 L Pulse Oximetry Oxygen Delivery 09/17/24 20:00 09/17/24 20:00 09/17/24 20:00 Temperature 98.7 F Pulse Rate 93 89 Respiratory Rate 18 Blood Pressure 104/72 Pulse Oximetry 99 Oxygen Delivery Room Air 09/17/24 20:00 09/17/24 22:00 09/17/24 22:00 Temperature Pulse Rate 93 105 H 105 H Respiratory Rate Blood Pressure 104/72 110/77 110/77 Pulse Oximetry 98 Oxygen Delivery 09/17/24 22:00 09/18/24 00:00 09/18/24 00:00 Temperature 98.3 F Pulse Rate 96 77 Respiratory Rate 17 Blood Pressure 110/57 L Pulse Oximetry 100 Oxygen Delivery Room Air 09/18/24 00:00 09/18/24 02:00 09/18/24 02:00 Temperature 98.5 F Pulse Rate 77 90 90 Respiratory Rate 18 Blood Pressure 110/57 L 126/66 126/66 Pulse Oximetry 96 Oxygen Delivery 09/18/24 02:00 09/18/24 04:00 09/18/24 04:00 Temperature Pulse Rate 86 131 H Respiratory Rate Blood Pressure Pulse Oximetry Oxygen Delivery Room Air 09/18/24 04:00 09/18/24 04:00 09/18/24 05:30 Temperature 98.3 F Pulse Rate 116 H 116 H 88 Respiratory Rate 20 Blood Pressure 99/69 L 99/69 L 114/95 H Pulse Oximetry 99 Oxygen Delivery 09/18/24 05:30 09/18/24 06:00 09/18/24 06:00 Temperature Pulse Rate 88 88 88 Respiratory Rate Blood Pressure 114/95 H 114/95 H 114/95 H Pulse Oximetry Oxygen Delivery 09/18/24 06:00 09/18/24 07:54 09/18/24 08:00 Temperature 98.6 F Pulse Rate 90 96 105 H Respiratory Rate 18 Blood Pressure 131/87 131/87 Pulse Oximetry 95 Oxygen Delivery 09/18/24 08:15 09/18/24 08:42 09/18/24 10:00 Temperature Pulse Rate 105 H 113 H 101 H Respiratory Rate Blood Pressure 96/63 L Pulse Oximetry 99 Oxygen Delivery 09/18/24 10:00 09/18/24 10:00 09/18/24 11:56 Temperature 98.1 F Pulse Rate 112 H 112 H 92 Respiratory Rate 20 Blood Pressure 96/63 L 116/62 Pulse Oximetry 100 Oxygen Delivery Intake/Output Intake/Output: Intake & Output 09/15/24 09/16/24 09/17/24 09/18/24 23:59 23:59 23:59 23:59 Intake Total 574.4 701.7 312.5 Balance 574.4 701.7 312.5 Meds/Results Medications: Active Medications Generic Name Dose Route Start Last Admin Trade Name Freq PRN Reason Stop Dose Admin Acetaminophen 650 mg 09/16/24 14:33 Acetaminophen 325 Mg Tablet PO Q4H PRN Mild Pain (1-3) or Fever Atorvastatin Calcium 40 mg 09/17/24 21:00 09/17/24 20:53 Atorvastatin 40 Mg Tablet PO 40 mg HS DESI Administration Cyanocobalamin 500 mcg 09/17/24 09:00 09/18/24 08:43 Cyanocobalamin 500 Mcg Tablet PO 500 mcg QAM DESI Administration Cyanocobalamin 2,000 mcg 09/17/24 09:00 09/18/24 08:43 Cyanocobalamin 1,000 Mcg Tablet PO 2,000 mcg QAM DESI Administration Dextrose 12.5 gm 09/16/24 14:33 Dextrose 50% 25 Gm/50 Ml Syringe IV PUSH PRN PRN Hypoglycemia Protocol Ferrous Sulfate 325 mg 09/17/24 09:00 09/18/24 08:42 Ferrous Sulfate [address] BY MOUTH 325 mg DAILY DESI Administration Furosemide 20 mg 09/17/24 09:00 09/18/24 08:44 Furosemide 20 Mg Tablet PO 20 mg DAILY DESI Administration Glucagon 1 mg 09/16/24 14:33 Glucagon For Inj 1 Mg Vial IM PRN PRN Hypoglycemia Protocol Glucose 15 gm 09/16/24 14:33 Glucose Oral Gel 15 Gm Of Glucse In 37.5 Gm Tube PO PRN PRN Hypoglycemia Protocol Dextrose 1,000 mls @ 100 mls/hr 09/16/24 14:33 Dextrose 5% 1,000 Ml IVPB PRN PRN Hypoglycemia Protocol Diltiazem HCl 100 mg in 100 mls @ 10 mls/hr 09/16/24 23:45 09/18/24 10:00 Cardizem 100 Mg/100 Ml IV CONT 10 mg/hr .Q10H DESI 10 mls/hr Infusion 10 MG/HR Insulin Aspart 4 - 8 units 09/17/24 08:00 09/18/24 12:05 Insulin Aspart (*Bkc) 100 Units/Ml SUB-Q 5 units TIDWM DESI Administration Protocol Loratadine 10 mg 09/16/24 21:19 09/18/24 08:46 Loratadine 10 Mg Tablet PO 10 mg DAILY PRN Administration Allergy Symptoms Metoprolol Succinate 25 mg 09/17/24 09:00 09/18/24 08:42 Metoprolol Succinate Ext Rel 25 Mg Tabcr PO 25 mg DAILY DESI Administration Nitroglycerin 0.4 mg 09/16/24 14:33 Nitroglycerin Sl 0.4 Mg Tablet SUBLINGUAL Q5MIN PRN Chest Pain Ondansetron HCl 4 mg 09/16/24 14:33 Ondansetron Inj 4 Mg/2 Ml Vial IV PUSH Q4H PRN Nausea Perflutren Lipid Microsphere 0 ml 09/16/24 17:24 Perflutren Lipid Microspheres 1.5 Ml Vial Diluted To 10 Ml Total Volume IV PUSH 09/19/24 17:24 ONCE PRN adequate visualization Protocol Rivaroxaban 20 mg 09/17/24 21:00 09/17/24 20:53 Rivaroxaban 20 Mg Tablet PO 20 mg HS DESI Administration Sertraline HCl 50 mg 09/17/24 09:00 09/18/24 08:42 Sertraline Hcl 50 Mg Tablet PO 50 mg DAILY DESI Administration Vitamin D 25 mcg 09/17/24 09:00 09/18/24 08:42 Cholecalciferol (Vitamin D3) 25 Mcg (1,000 Units) Tablet PO 25 mcg DAILY DESI Administration Radiology Results: ITS Impressions Chest X-Ray 09/16/24 13:51 IMPRESSION: 1. No acute cardiopulmonary disease. Labs Labs: Laboratory Results - last 24 hr 09/17/24 09/17/24 09/18/24 16:12 20:02 03:25 WBC 9.3 RBC 4.17 L Hgb 12.6 Hct 38.7 MCV 92.8 MCH 30.2 MCHC 32.6 RDW 13.9 Plt Count 216 MPV 11.1 H Sodium 136 L Potassium 4.2 Chloride 104 Carbon Dioxide 22 Anion Gap 10 BUN 31 H Creatinine 1.73 H Estim Creat Clear Calc 33 Estimated GFR 29 L Glucose 156 H POC Capillary Glucose 145 H 315 H Calcium 9.3 Magnesium 1.9 Total Bilirubin 0.6 AST 43 H ALT 23 Alkaline Phosphatase 81 Total Protein 7.4 Albumin 3.9 09/18/24 09/18/24 07:11 11:48 WBC RBC Hgb Hct MCV MCH MCHC RDW Plt Count MPV Sodium Potassium Chloride Carbon Dioxide Anion Gap BUN Creatinine Estim Creat Clear Calc Estimated GFR Glucose POC Capillary Glucose 197 H 261 H Calcium Magnesium Total Bilirubin AST ALT Alkaline Phosphatase Total Protein Albumin Quality VTE Prophylaxis VTE prophylaxis: pharmacologic ordered Hospitalist MIPS Advance Care Plan I have confirmed that the patient's Advanced Care Plan is present, code status is documented, or surrogate decision maker is listed in patient medical record.: Yes Medication Reconciliation I have utilized all available resources to obtain, update and review the patients current medications (includes all prescriptions, OTC, herbals, cannabis, and nutritional supplements).: Yes
--- NOTE | 2024-09-18 13:50 | ECG_ITS ---
Test Date: 2024-09-18 13:52:56 Measurements Intervals [place] Rate: 101 P: 0 KS: 0 QRS: 13 QRSD: 105 T: 45 QT: 356 QTc: 461 Interpretive Statements ATRIAL FIBRILLATION WITH RAPID VENTRICULAR RESPONSE NONSPECIFIC ST & T-WAVE ABNORMALITY- DIFFUSE LEADS BASELINE ARTIFACT- I, II, III, AVR ABNORMAL ECG Compared to ECG 09/16/2024 15:54:49 Atrial flutter no longer present Electronically Signed On 09-18-2024 14:05:45 CDT by Rigo Johnson D.O.
--- NOTE | 2024-09-18 13:59 | PC.NURSE ---
1345- to cardiac lab animal technician for ELLY/ Cardioversion via stretcher accompanied by RN
--- NOTE | 2024-09-18 14:03 | ECG_ITS ---
Test Date: 2024-09-18 14:06:57 Measurements Intervals [place] Rate: 52 P: 0 MI: 190 QRS: -5 QRSD: 94 T: 13 QT: 463 QTc: 433 Interpretive Statements SINUS BRADYCARDIA BORDERLINE ST-T WAVE ABNORMALITY- LAT/HIGH LAT LEADS BORDERLINE ECG Compared to ECG 09/18/2024 13:52:56 Atrial fibrillation no longer present Electronically Signed On 09-18-2024 15:00:51 CDT by Rigo Johnson D.O.
--- NOTE | 2024-09-18 14:09 | WPDHPUPDATE1 ---
History and Physical Update Update Date/Time: 09/18/24 14:09 History and Physical has been reviewed, including an updated exam of the patient. There are NO changes in the patient's condition. Risks, benefits, and alternatives have been discussed and questions answered. Patient agrees to proceed with procedure.
--- NOTE | 2024-09-18 14:09 | WPDTECDV ---
ELLY with Cardioversion Date of procedure: 09/18/24 Procedure Type: Date Of Procedure: 09/18/2024 Brief History Of Present Illness: Patient is a pleasant 74 year old female who is referred for ELLY-guided DCCV for atrial fibrillation with RVR. Procedure In Detail: After verbal and written informed consent was obtained, the patient risks, benefits, and alternatives explained in detail. The patient agreed to proceed with the plan of care as outlined above.?The patient was then placed in the appropriate 30 to 45 degree angle supine position at a slight left lateral decubitus position.?Patient was monitored throughout the study with telemetry, oxygen saturation, end-tidal CO2 monitoring, blood pressure, heart rate, and respirations.?The posterior hypopharynx was then locally anesthetized using repeated administration of Hurricaine spray. After local anesthetic of the posterior hypopharynx was achieved and the oral bite block placed, sedation was administered by the Anesthesia team.?After confirmation of adequate moderate sedation, the transesophageal echocardiogram probe was advanced through the oral bite block into the posterior hypopharynx and into the esophagus easily and without complication.?Multiple, multiplanar echocardiographic images were obtained in multiple standard re-projections.?At the conclusion of the study, the transesophageal echocardiogram probe was removed easily and without complication. The patient tolerated the procedure well without difficulty.? Moderate Sedation / Anesthesia Administration: LEFT ATRIAL APPENDAGE: Anatomically normal structure with prominent pectinate muscles without thrombus or vegetation identified. CARDIOVERSION: Defibrillator pads placed in an AP position. Synchronized electrical cardioversion was performed with 1 shock at 250 joules, which converted patient to sinus bradycardia. CONCLUSION: Successful ELLY-guided DCCV with 1 shock at 250 joules. Complications: None
--- NOTE | 2024-09-18 14:12 | P.PNCA_ITS ---
Progress Note: A&P Assessment and Plan (1) Atrial fibrillation with rapid ventricular response: Code(s): I48.91 - Unspecified atrial fibrillation Status: Acute Assessment and Plan: Paroxysmal atrial fibrillation diagnosed in 2022. Presents with recurrence of atrial fibrillation with rapid ventricular response. * Rate controlled on Diltiazem drip. * S/p ELLY-guided DCCV today 09/18. Will discontinue Diltiazem drip. Continue with PO Metoprolol. Heart rates after cardioversion in the 40s to 50s, therefore, will not advance dose of Metoprolol at this time. Monitor on tele * Continue Xarelto without interruption. * Anticipate discharge home tomorrow. (2) Elevated brain natriuretic peptide (BNP) level: Code(s): R79.89 - Other specified abnormal findings of blood chemistry Status: Acute Assessment and Plan: Probably related to tachycardia. She does also have grade III diastolic dysfunction, but clinically does not appear to be in heart failure. (3) HTN (hypertension): Qualifiers: Hypertension type: unspecified Qualified Code(s): I10 - Essential (primary) hypertension Code(s): I10 - Essential (primary) hypertension Status: Chronic Assessment and Plan: At goal. Subjective Date/time seen: 09/18/24 14:12 Interval history: Reason for visit: Atrial fibrillation with RVR HPI: Jocelyn Beaulieu is a 74 year old female with hypertension, hyperlipidemia, type 2 diabetes mellitus, chronic kidney disease, and paroxysmal atrial fibrillation. She was sent to the emergency room from Dr. Brown's office because her heart rate in the office was in the 150's. She was asymptomatic. She has been placed on a diltiazem drip and is now rate controlled. She is not having any chest pain, shortness of breath, palpitations, orthopnea. She has chronic lowered extremity edema secondary to lymphedema. At the time of my evaluation, she is lying comfortably in bed does not have any active complaints. Date of service 09/18: Remains in AFIB, with intermittent RVR. Review of Systems Cardiovascular: Cardiovascular: Reports as per HPI Exam Const: General: comfortable and no acute distress HENMT: Mouth: Yes moist mucous membranes Eyes: General: appearance normal, both eyes and all related structures Sclera: sclerae normal Resp: Effort & Inspection: normal respiratory effort Cardio: Rate: tachycardic Rhythm: abnormal rhythm irregularly irregular Skin: General skin exam: normal color Neuro: Speech: normal speech Psych: Mental Status: mental status grossly normal Affect: normal affect Objective Data Vital Signs Vital Signs: Vital Signs - 24 hr 09/17/24 16:00 09/17/24 16:00 09/17/24 16:00 Temperature 36.9 C Pulse Rate 83 83 Respiratory Rate 20 Blood Pressure 102/40 L 102/40 L Pulse Oximetry 98 Oxygen Delivery Room Air 09/17/24 16:00 09/17/24 18:00 09/17/24 18:00 Temperature Pulse Rate 77 105 H 88 Respiratory Rate Blood Pressure 119/62 Pulse Oximetry Oxygen Delivery 09/17/24 18:00 09/17/24 18:42 09/17/24 18:45 Temperature Pulse Rate 88 97 97 Respiratory Rate Blood Pressure 119/62 102/47 L 102/47 L Pulse Oximetry Oxygen Delivery 09/17/24 20:00 09/17/24 20:00 09/17/24 20:00 Temperature 37.1 C Pulse Rate 93 89 Respiratory Rate 18 Blood Pressure 104/72 Pulse Oximetry 99 Oxygen Delivery Room Air 09/17/24 20:00 09/17/24 22:00 09/17/24 22:00 Temperature Pulse Rate 93 105 H 105 H Respiratory Rate Blood Pressure 104/72 110/77 110/77 Pulse Oximetry 98 Oxygen Delivery 09/17/24 22:00 09/18/24 00:00 09/18/24 00:00 Temperature 36.8 C Pulse Rate 96 77 Respiratory Rate 17 Blood Pressure 110/57 L Pulse Oximetry 100 Oxygen Delivery Room Air 09/18/24 00:00 09/18/24 02:00 09/18/24 02:00 Temperature 36.9 C Pulse Rate 77 90 90 Respiratory Rate 18 Blood Pressure 110/57 L 126/66 126/66 Pulse Oximetry 96 Oxygen Delivery 09/18/24 02:00 09/18/24 04:00 09/18/24 04:00 Temperature Pulse Rate 86 131 H Respiratory Rate Blood Pressure Pulse Oximetry Oxygen Delivery Room Air 09/18/24 04:00 09/18/24 04:00 09/18/24 05:30 Temperature 36.8 C Pulse Rate 116 H 116 H 88 Respiratory Rate 20 Blood Pressure 99/69 L 99/69 L 114/95 H Pulse Oximetry 99 Oxygen Delivery 09/18/24 05:30 09/18/24 06:00 09/18/24 06:00 Temperature Pulse Rate 88 88 88 Respiratory Rate Blood Pressure 114/95 H 114/95 H 114/95 H Pulse Oximetry Oxygen Delivery 09/18/24 06:00 09/18/24 07:54 09/18/24 08:00 Temperature 37.0 C Pulse Rate 90 96 105 H Respiratory Rate 18 Blood Pressure 131/87 131/87 Pulse Oximetry 95 Oxygen Delivery 09/18/24 08:15 09/18/24 08:42 09/18/24 10:00 Temperature Pulse Rate 105 H 113 H 101 H Respiratory Rate Blood Pressure 96/63 L Pulse Oximetry 99 Oxygen Delivery 09/18/24 10:00 09/18/24 10:00 09/18/24 11:56 Temperature 36.7 C Pulse Rate 112 H 112 H 92 Respiratory Rate 20 Blood Pressure 96/63 L 116/62 Pulse Oximetry 100 Oxygen Delivery 09/18/24 12:00 Temperature Pulse Rate 92 Respiratory Rate Blood Pressure 116/52 L Pulse Oximetry Oxygen Delivery Intake/Output Intake/Output: Intake & Output 09/15/24 09/16/24 09/17/24 09/18/24 23:59 23:59 23:59 23:59 Intake Total 574.4 701.7 332.5 Balance 574.4 701.7 332.5 Meds/Results Medications: Active Medications Generic Name Dose Route Start Last Admin Trade Name Freq PRN Reason Stop Dose Admin Acetaminophen 650 mg 09/16/24 14:33 Acetaminophen 325 Mg Tablet PO Q4H PRN Mild Pain (1-3) or Fever Atorvastatin Calcium 40 mg 09/17/24 21:00 09/17/24 20:53 Atorvastatin 40 Mg Tablet PO 40 mg HS DESI Administration Cyanocobalamin 500 mcg 09/17/24 09:00 09/18/24 08:43 Cyanocobalamin 500 Mcg Tablet PO 500 mcg QAM DESI Administration Cyanocobalamin 2,000 mcg 09/17/24 09:00 09/18/24 08:43 Cyanocobalamin 1,000 Mcg Tablet PO 2,000 mcg QAM DESI Administration Dextrose 12.5 gm 09/16/24 14:33 Dextrose 50% 25 Gm/50 Ml Syringe IV PUSH PRN PRN Hypoglycemia Protocol Ferrous Sulfate 325 mg 09/17/24 09:00 09/18/24 08:42 Ferrous Sulfate [address] BY MOUTH 325 mg DAILY DESI Administration Furosemide 20 mg 09/17/24 09:00 09/18/24 08:44 Furosemide 20 Mg Tablet PO 20 mg DAILY DESI Administration Glucagon 1 mg 09/16/24 14:33 Glucagon For Inj 1 Mg Vial IM PRN PRN Hypoglycemia Protocol Glucose 15 gm 09/16/24 14:33 Glucose Oral Gel 15 Gm Of Glucse In 37.5 Gm Tube PO PRN PRN Hypoglycemia Protocol Dextrose 1,000 mls @ 100 mls/hr 09/16/24 14:33 Dextrose 5% 1,000 Ml IVPB PRN PRN Hypoglycemia Protocol Insulin Aspart 4 - 8 units 09/17/24 08:00 09/18/24 12:05 Insulin Aspart (*Bkc) 100 Units/Ml SUB-Q 5 units TIDWM DESI Administration Protocol Loratadine 10 mg 09/16/24 21:19 09/18/24 08:46 Loratadine 10 Mg Tablet PO 10 mg DAILY PRN Administration Allergy Symptoms Metoprolol Succinate 25 mg 09/17/24 09:00 09/18/24 08:42 Metoprolol Succinate Ext Rel 25 Mg Tabcr PO 25 mg DAILY DESI Administration Nitroglycerin 0.4 mg 09/16/24 14:33 Nitroglycerin Sl 0.4 Mg Tablet SUBLINGUAL Q5MIN PRN Chest Pain Ondansetron HCl 4 mg 09/16/24 14:33 Ondansetron Inj 4 Mg/2 Ml Vial IV PUSH Q4H PRN Nausea Perflutren Lipid Microsphere 0 ml 09/16/24 17:24 Perflutren Lipid Microspheres 1.5 Ml Vial Diluted To 10 Ml Total Volume IV PUSH 09/19/24 17:24 ONCE PRN adequate visualization Protocol Rivaroxaban 20 mg 09/17/24 21:00 09/17/24 20:53 Rivaroxaban 20 Mg Tablet PO 20 mg HS DESI Administration Sertraline HCl 50 mg 09/17/24 09:00 09/18/24 08:42 Sertraline Hcl 50 Mg Tablet PO 50 mg DAILY DESI Administration Vitamin D 25 mcg 09/17/24 09:00 09/18/24 08:42 Cholecalciferol (Vitamin D3) 25 Mcg (1,000 Units) Tablet PO 25 mcg DAILY DESI Administration Radiology Results: ITS Impressions Chest X-Ray 06/16/25 13:51 IMPRESSION: 1. No acute cardiopulmonary disease. Labs Labs: Laboratory Results - last 24 hr 09/17/24 09/17/24 09/18/24 16:12 20:02 03:25 WBC 9.3 RBC 4.17 L Hgb 12.6 Hct 38.7 MCV 92.8 MCH 30.2 MCHC 32.6 RDW 13.9 Plt Count 216 MPV 11.1 H Sodium 136 L Potassium 4.2 Chloride 104 Carbon Dioxide 22 Anion Gap 10 BUN 31 H Creatinine 1.73 H Estim Creat Clear Calc 33 Estimated GFR 29 L Glucose 156 H POC Capillary Glucose 145 H 315 H Calcium 9.3 Magnesium 1.9 Total Bilirubin 0.6 AST 43 H ALT 23 Alkaline Phosphatase 81 Total Protein 7.4 Albumin 3.9 09/18/24 09/18/24 07:11 11:48 WBC RBC Hgb Hct MCV MCH MCHC RDW Plt Count MPV Sodium Potassium Chloride Carbon Dioxide Anion Gap BUN Creatinine Estim Creat Clear Calc Estimated GFR Glucose POC Capillary Glucose 197 H 261 H Calcium Magnesium Total Bilirubin AST ALT Alkaline Phosphatase Total Protein Albumin
[2024-09-18 16:15] LABS: Glucose Point of Care 277 mg/dl (65-105)
--- NOTE | 2024-09-18 18:10 | PC.NURSE ---
@ 1450- returned to room post ELLY/ cardioversion- monitor SR 40's -50 - no c/o pain at this time
[2024-09-18 19:51] LABS: Glucose Point of Care 241 mg/dl (65-105)
[2024-09-18] MEDS: RIVAROXABAN 20 MG TABLET PO (20:41)
[2024-09-18] MEDS: ATORVASTATIN 40 MG TABLET PO (20:41)
[2024-09-19] VITALS (11 sets, daily range): BP systolic 139–149; BP diastolic 54–66; PULSE 60–71; RESP 16–20; TEMP 36.5; O2SAT 99–100
[2024-09-19 04:16] LABS: Hematocrit 36.5 % (37.0-47.0); Mean Corpuscular HGB Conc 32.9 g/dl (32-36); Mean Corpuscular Hemoglobin 30.2 pg (26-34); Mean Corpuscular Volume 91.9 fl (80-100); Mean Platelet Volume 10.7 fl (7.4-10.4); Platelet Count Result 202 k/mm3 (150-375); Red Blood Count 3.97 M/mm3 (4.2-5.4); Red Cell Distribution Width 13.6 % (11.5-14.5); White Blood Count 7.8 K/mm3 (4.5-10.0)
[2024-09-19 04:31] LABS: Alanine Aminotransferase 21 U/L (6-35); Albumin Level 3.7 g/dL (3.5-5.1); Alkaline Phosphatase 80 U/L (38-126); Anion Gap 10 mmol/L (4-12); Aspartate Amino Transferase 39 U/L (14-36); Bilirubin,Total 0.8 mg/dL (0.2-1.3); Blood Urea Nitrogen 30 mg/dL (7-17); Calcium 9.2 mg/dL (8.4-10.2); Carbon Dioxide 23 mmol/L (22-30); Chloride 103 mmol/L (98-107); Estimated CRCL calculation 34 ml/min; Estimated Glomerular Filt Rate 30; Glucose 191 mg/dL (65-110); Potassium 4.1 mmol/L (3.4-5.0); Sodium 136 mmol/L (137-145); Total Protein 7.1 g/dL (6.3-8.2)
[2024-09-19 07:56] LABS: Glucose Point of Care 174 mg/dl (65-105)
[2024-09-19] MEDS: CHOLECALCIFEROL (VITAMIN D3) 25 MCG (1,000 UNITS) TABLET PO (08:11)
[2024-09-19] MEDS: METOPROLOL SUCCINATE EXT REL 25 MG TABCR PO (08:11)
[2024-09-19] MEDS: FERROUS SULFATE 325 MG TABLET DR BY MOUTH (08:11)
[2024-09-19] MEDS: FUROSEMIDE 20 MG TABLET PO (08:11)
[2024-09-19] MEDS: CYANOCOBALAMIN 500 MCG TABLET PO (08:12)
[2024-09-19] MEDS: SERTRALINE HCL 50 MG TABLET PO (08:12)
[2024-09-19] MEDS: CYANOCOBALAMIN 1,000 MCG TABLET 2000 MCG PO (08:12)
--- NOTE | 2024-09-19 09:48 | P.DS_ITS ---
DS: Admitting Diagnosis Discharge Date 09/19/2024 Admitting Diagnosis Palpitation and low blood pressure DS: Discharge Diagnosis Discharge Diagnosis (1) Atrial fibrillation with rapid ventricular response: Code(s): I48.91 - Unspecified atrial fibrillation Status: Acute Assessment and Plan: Refer to hospital course for brief summary - EKG, initial: AFib RVR, rate 131, borderline ST-T-wave abnormality in high lateral leads. - repeat EKG showing possible Atrial Flutter - hx of Afib on metoprolol and Xarelto. Unclear how long patient has been in AFib as she was previously asymptomatic before discovering tachycardia at nephrology appointment. Will hold home metoprolol, now on Cardizem gtt and rate controlled. Continue Xarelto. - Cardizem gtt at 10 mg/hr -> HR 104 - cardiology consulted and underwent cardioversion and possible discharge tomorrow - admission to IMU with telemetry monitoring (2) Elevated brain natriuretic peptide (BNP) level: Code(s): R79.89 - Other specified abnormal findings of blood chemistry Status: Acute Assessment and Plan: - BNP 5080 - most recent echo (03/2023): Normal LV systolic function, estimated EF 60 65%, grade 3 diastolic dysfunction. See report for full details. - currently on: Lasix 20 mg daily, continue with same as the patient is not volume overloaded on exam - monitor I&Os and daily weights - trend renal function (3) DM2 (diabetes mellitus, type 2): Qualifiers: Diabetes mellitus complication status: without complication Diabetes mellitus termite control servicer insulin use: without termite control servicer use Qualified Code(s): E11.9 - Type 2 diabetes mellitus without complications Code(s): E11.9 - Type 2 diabetes mellitus without complications Status: Chronic Assessment and Plan: - hypoglycemia protocol - POC blood glucose ACHS - home medication: Hold Jardiance, glipizide - correct regimen ordered - high dose TIDWM, based off BMI - A1C 7.9% 03/2023, update (4) Anemia: Qualifiers: Anemia type: due to chronic kidney disease Chronic kidney disease stage: stage 3 (moderate) Chronic kidney disease stage 3 subtype: stage 3b (GFR 30-44) Qualified Code(s): N18.32 - Chronic kidney disease, stage 3b; D63.1 - Anemia in chronic kidney disease Code(s): D64.9 - Anemia, unspecified Status: Chronic Assessment and Plan: - Hgb 13.3 - Hx of CKD, likely anemia due to chronic illness/CKD - transfuse if <7 - trend H&H (5) Chronic kidney disease, stage 3b: Code(s): N18.32 - Chronic kidney disease, stage 3b Status: Chronic Assessment and Plan: - creatinine 1.49 and GFR 34, previously 1.37 and GFR 38 on 09/06/2024 - follows with Stephanie GOODMAN - trend renal function - trend electrolytes, correct as needed (6) HTN (hypertension): Qualifiers: Hypertension type: unspecified Qualified Code(s): I10 - Essential (primary) hypertension Code(s): I10 - Essential (primary) hypertension Status: Chronic Assessment and Plan: - chronic, currently 110/76 - hold home medications -> lisinopril and metoprolol. - monitor DS: Summary Hospital Course Hospital Course: 74 y/o F with PMH of Afib on Xarelto, HTN, CKD, DM2, and HTN presents here with Afib RVR. The patient presents here with AFib RVR from her insurance healthcare representative office. The patient was at her usual kidney follow-up when she was found to have an elevated HR in the 140s and her BP was 96/74 prompting her to be sent the ER for evaluation. Upon arrival to the ER she had a HR of 128 and BP was 126/97. She h as a hx of Afib on Metoprolol and Xarelto. She denies any missed doses. She reports accompanying fatigue, clammy/flushed, and dizzy, as though her balance has been off - mostly notes in when she goes to turn and feels wobbly. Denies chest pain, shortness of breath, nausea, vomiting, fever, or chills. Did have a little bit of loose stool yesterday. Initial VS at presentation: 98.1? F, HR 128, R 20, 126/97, and 97% on RA. ED workup showed: No leukocytosis, no anemia, INR 1.8, potassium 5.1, creatinine 1.49 and GFR 34, initial troponin negative x2, BNP 5080. CXR showed no acute cardiopulmonary disease. Initial EKG showed AFib RVR, rate 131, borderline ST-T-wave abnormality in. /high lateral leads. Cardiology evaluated the patient and she underwent ELLY-guided DCCV on 09/18. Advised to continue p.o. metoprolol and continue Xarelto without interruption. On the day of discharge, the patient was seen and examined. Vital signs were stable. Physical exam were stable and labs were reviewed at length. Discharge instructions, medications, and follow-up appointments were discussed with the patient at length and all day questions were answered. ER warnings were given. Status at Discharge Cognitive/behavioral status at discharge: Stable Time Spent with Patient Time attestation: Total time spent providing and/or coordinating discharge services: 45 minutes Exam Narrative: irregular, normal rate. trace edema to BLE, symmetric. Const: General: comfortable and no acute distress Other: , female, nontoxic appearance HENMT: Face/Nose/Sinus: Normal nares present Mouth: Yes moist mucous membranes Eyes: General: appearance normal, both eyes and all related structures Sclera: sclerae normal Pupils: Equal, round and reactive pupils present EOM: EOMs intact bilaterally Resp: Effort & Inspection: normal respiratory effort Auscultation: clear to auscultation bilaterally Cardio: Rate: regular rate Rhythm: abnormal rhythm Other: S1-S2 present without murmur, rub, ectopy GI: Other: Abdomen soft, nondistended, nontender. Normoactive bowel sounds in all quadrants. Skin: General skin exam: normal color and no rashes or lesions noted Wounds: no wounds Neuro: General: gait normal Cranial nerves: Yes Equal, round and reactive pupils present Speech: normal speech Motor exam (neuro): 5/5 motor strength present throughout Sensory Exam: normal sensation Other: A&O x4 Extrem: Other: trace edema to BLE, symmetric. Psych: Mental Status: mental status grossly normal Affect: normal affect Other: Good insight and judgment, very pleasant DS: Data Data Completed and Pending Labs on day of discharge: Labs from last 24 hours 09/19/24 09/19/24 09/18/24 07:32 03:54 19:37 WBC 7.8 RBC 3.97 L Hgb 12.0 Hct 36.5 L MCV 91.9 MCH 30.2 MCHC 32.9 RDW 13.6 Plt Count 202 MPV 10.7 H Sodium 136 L Potassium 4.1 Chloride 103 Carbon Dioxide 23 Anion Gap 10 BUN 30 H Creatinine 1.68 H Estim Creat Clear Calc 34 Estimated GFR 30 L Glucose 191 H POC Capillary Glucose 174 H 241 H Calcium 9.2 Total Bilirubin 0.8 AST 39 H ALT 21 Alkaline Phosphatase 80 Total Protein 7.1 Albumin 3.7 09/18/24 09/18/24 16:12 11:48 WBC RBC Hgb Hct MCV MCH MCHC RDW Plt Count MPV Sodium Potassium Chloride Carbon Dioxide Anion Gap BUN Creatinine Estim Creat Clear Calc Estimated GFR Glucose POC Capillary Glucose 277 H 261 H Calcium Total Bilirubin AST ALT Alkaline Phosphatase Total Protein Albumin Imaging Radiologist's impression: ITS Impressions Chest X-Ray 09/16/24 13:51 IMPRESSION: 1. No acute cardiopulmonary disease. Discharge Plan Discharge Attending physician on discharge: Eulalio Muse Consulting providers: Juno Curran Discharging Clinician: Eulalio Muse Anticipated Discharge Date/Time: 09/19/24 09:51 Patient Disposition: Home Activity: as tolerated Diet: heart healthy Discharge Instructions: Check blood pressure 1 to 2 times a day. Record and bring into your doctor for review. Call your doctor if your blood pressure is greater than 180/110 or less than 90/45. Walk with cane or other assist device. Take precautions to avoid falls. Rise slowly from a lying or sitting position. Pause before standing or walking. Contact your doctor or call 911 and come to the Emergency Room if you have any type of trauma, lightheadedness with standing or other worrisome symptoms. Avoid NSAIDs (ibuprofen, naproxen, Aleve). Tylenol is safe to take. Follow-up with your primary care provider in 1-2 weeks. Please call for appointment. Follow-up with Cardiology in 2-4 weeks. Please call for an appointment. Continue Xeralto with interruption. Continue Metoprolol. Thank you for using [facility] for your health care needs. Patient Instructions: Rivaroxaban (By mouth), Heart Failure (DC), Cardioversion (DC), Suicide Prevention (DC), Transesophageal Echocardiogram (DC) Patient Language: German Stand Alone Forms: General Discharge Information Follow-up/Referrals: Hugh Naidu MD [Physician] - Discharge Medications: Continued Jardiance 10 mg tablet 10 mg PO DAILY lisinopril 10 mg tablet 10 mg PO DAILY Qty: 30 8RF sertraline 100 mg tablet 50 mg PO DAILY atorvastatin 40 mg tablet 40 mg PO HS furosemide 20 mg tablet 20 mg PO DAILY Rx Instructions: 08/15/23: pt. states she has not been taking this med daily. Xarelto 20 mg tablet 20 mg PO HS glipizide 10 mg tablet 20 mg PO HS loratadine 10 mg Tablet 10 mg PO DAILY PRN (Reason: Allergy Symptoms) metoprolol succinate 25 mg tablet extended release 24 hr 25 mg PO DAILY biotin 5 mg tablet 5 mg PO DAILY mecobalamin (vitamin B12) 2,500 mcg tablet,chewable 2,500 mcg PO DAILY ferrous sulfate [Iron (ferrous sulfate)] 325 mg (65 mg iron) tablet 325 mg PO DAILY cholecalciferol (vitamin D3) [Vitamin D3] 25 mcg (1,000 unit) capsule 25 mcg PO DAILY Discontinued atorvastatin 40 mg tablet 40 mg PO DAILY Other Ambulatory Orders: CA cardiac event monitor (Routine) Timeframe: 1 Week Location: Determined by Patient Ordered By: Eulalio Muse Date of admission: 09/17/24 10:48 Primary Care Provider: KiRosanne Admitting Provider: Roberto Trejo Attending physician on admission: Roberto Trejo Condition: Stable
--- NOTE | 2024-09-19 10:31 | P.PNCA_ITS ---
Progress Note: A&P Assessment and Plan (1) Atrial fibrillation with rapid ventricular response: Code(s): I48.91 - Unspecified atrial fibrillation Status: Acute Assessment and Plan: Paroxysmal nonvalvular atrial fibrillation diagnosed in 2022. Presented with recurrence of atrial fibrillation with rapid ventricular response. * Rate controlled on Diltiazem drip. * S/p successful ELLY-guided DCCV 09/18 with conversion to sinus rhythm. Diltiazem drip discontinued after cardioversion. EKG shows sinus bradycardia with rate of 52. * Normal LVEF on echo 55-60%. No significant valvular pathology. * Continue with PO Metoprolol at 25 mg daily without uptitration as heart rates after cardioversion were in the 40s to 50s. * Monitor on tele. Thirty day event monitor at discharge. * Continue Xarelto without interruption. * Okay to discharge home from cardiology standpoint. Follow-up with cardiology as outpatient in 1 month (2) Elevated brain natriuretic peptide (BNP) level: Code(s): R79.89 - Other specified abnormal findings of blood chemistry Status: Acute Assessment and Plan: Most likely related to tachycardia. She also has grade III diastolic dysfunction. She is euvolemic by exam. Continue Lasix 20 mg daily. (3) HTN (hypertension): Qualifiers: Hypertension type: unspecified Qualified Code(s): I10 - Essential (primary) hypertension Code(s): I10 - Essential (primary) hypertension Status: Chronic Assessment and Plan: At goal. Continue metoprolol 25 mg daily Subjective Date/time seen: 09/19/24 10:31 Interval history: Reason for visit: Atrial fibrillation with RVR HPI: Jocelyn Beaulieu is a 74 year old female with hypertension, hyperlipidemia, type 2 diabetes mellitus, chronic kidney disease, and paroxysmal atrial fibrillation. She was sent to the emergency room from Dr. Brown's office because her heart rate in the office was in the 150's. She was asymptomatic. She was placed on a diltiazem drip. She did not have any chest pain, shortness of breath, palpitations, orthopnea. She has chronic lowered extremity edema secondary to lymphedema. Date of service 09/18: Remains in AFIB, with intermittent RVR. Review of Systems Cardiovascular: Cardiovascular: Reports as per HPI Exam Const: General: comfortable and no acute distress HENMT: Mouth: Yes moist mucous membranes Eyes: General: appearance normal, both eyes and all related structures Sclera: sclerae normal Resp: Effort & Inspection: normal respiratory effort Cardio: Rate: tachycardic Rhythm: regular rhythm Skin: General skin exam: normal color Neuro: Speech: normal speech Psych: Mental Status: mental status grossly normal Affect: normal affect Objective Data Vital Signs Vital Signs: Vital Signs - 24 hr 09/18/24 11:56 09/18/24 12:00 09/18/24 12:00 Temperature 36.7 C Pulse Rate 92 92 98 Respiratory Rate 20 Blood Pressure 116/62 116/52 L Pulse Oximetry 100 Oxygen Delivery Oxygen Flow Rate 09/18/24 14:15 09/18/24 14:30 09/18/24 14:40 Temperature Pulse Rate 54 L 56 L 57 L Respiratory Rate 17 14 17 Blood Pressure 106/61 123/75 130/62 Pulse Oximetry 99 95 96 Oxygen Delivery Nasal Cannula Nasal Cannula Room Air Oxygen Flow Rate 4 2 09/18/24 14:50 09/18/24 15:00 09/18/24 16:00 Temperature 36.7 C 36.6 C Pulse Rate 46 L 52 L 65 Respiratory Rate 16 12 Blood Pressure 103/50 L 114/54 L Pulse Oximetry 98 99 Oxygen Delivery Oxygen Flow Rate 09/18/24 18:00 09/18/24 19:50 09/18/24 20:00 Temperature 36.7 C Pulse Rate 57 L 59 L 60 Respiratory Rate 18 Blood Pressure 134/76 Pulse Oximetry 100 Oxygen Delivery Oxygen Flow Rate 09/18/24 21:33 09/18/24 22:00 09/18/24 23:11 Temperature 36.7 C Pulse Rate 69 64 Respiratory Rate 18 Blood Pressure 120/60 Pulse Oximetry 100 99 Oxygen Delivery Room Air Oxygen Flow Rate 09/19/24 00:00 09/19/24 02:00 09/19/24 03:55 Temperature 36.5 C Pulse Rate 62 62 69 Respiratory Rate 20 Blood Pressure 139/54 L Pulse Oximetry 100 Oxygen Delivery Oxygen Flow Rate 09/19/24 04:00 09/19/24 06:00 09/19/24 07:30 Temperature 36.5 C Pulse Rate 60 62 60 Respiratory Rate 16 Blood Pressure 149/66 H Pulse Oximetry 99 Oxygen Delivery Oxygen Flow Rate 09/19/24 08:00 09/19/24 08:00 09/19/24 08:11 Temperature Pulse Rate 64 70 64 Respiratory Rate 16 Blood Pressure Pulse Oximetry 99 Oxygen Delivery Room Air Oxygen Flow Rate 09/19/24 10:00 Temperature Pulse Rate 71 Respiratory Rate Blood Pressure Pulse Oximetry Oxygen Delivery Oxygen Flow Rate Intake/Output Intake/Output: Intake & Output 09/16/24 09/17/24 09/18/24 09/19/24 23:59 23:59 23:59 23:59 Intake Total 574.4 701.7 1412.5 120 Balance 574.4 701.7 1412.5 120 Meds/Results Medications: Active Medications Generic Name Dose Route Start Last Admin Trade Name Freq PRN Reason Stop Dose Admin Acetaminophen 650 mg 09/16/24 14:33 Acetaminophen 325 Mg Tablet PO Q4H PRN Mild Pain (1-3) or Fever Atorvastatin Calcium 40 mg 09/17/24 21:00 09/18/24 20:41 Atorvastatin 40 Mg Tablet PO 40 mg HS DESI Administration Cyanocobalamin 500 mcg 09/17/24 09:00 09/19/24 08:12 Cyanocobalamin 500 Mcg Tablet PO 500 mcg QAM DESI Administration Cyanocobalamin 2,000 mcg 09/17/24 09:00 09/19/24 08:12 Cyanocobalamin 1,000 Mcg Tablet PO 2,000 mcg QAM DESI Administration Dextrose 12.5 gm 09/16/24 14:33 Dextrose 50% 25 Gm/50 Ml Syringe IV PUSH PRN PRN Hypoglycemia Protocol Ferrous Sulfate 325 mg 09/17/24 09:00 09/19/24 08:11 Ferrous Sulfate [address] BY MOUTH 325 mg DAILY DESI Administration Furosemide 20 mg 09/17/24 09:00 09/19/24 08:11 Furosemide 20 Mg Tablet PO 20 mg DAILY DESI Administration Glucagon 1 mg 09/16/24 14:33 Glucagon For Inj 1 Mg Vial IM PRN PRN Hypoglycemia Protocol Glucose 15 gm 09/16/24 14:33 Glucose Oral Gel 15 Gm Of Glucse In 37.5 Gm Tube PO PRN PRN Hypoglycemia Protocol Dextrose 1,000 mls @ 100 mls/hr 09/16/24 14:33 Dextrose 5% 1,000 Ml IVPB PRN PRN Hypoglycemia Protocol Insulin Aspart 4 - 8 units 09/17/24 08:00 09/19/24 08:12 Insulin Aspart (*Bkc) 100 Units/Ml SUB-Q Not Given TIDWM DESI Protocol Loratadine 10 mg 09/16/24 21:19 09/18/24 08:46 Loratadine 10 Mg Tablet PO 10 mg DAILY PRN Administration Allergy Symptoms Metoprolol Succinate 25 mg 09/17/24 09:00 09/19/24 08:11 Metoprolol Succinate Ext Rel 25 Mg Tabcr PO 25 mg DAILY DESI Administration Nitroglycerin 0.4 mg 09/16/24 14:33 Nitroglycerin Sl 0.4 Mg Tablet SUBLINGUAL Q5MIN PRN Chest Pain Ondansetron HCl 4 mg 09/16/24 14:33 Ondansetron Inj 4 Mg/2 Ml Vial IV PUSH Q4H PRN Nausea Perflutren Lipid Microsphere 0 ml 09/16/24 17:24 Perflutren Lipid Microspheres 1.5 Ml Vial Diluted To 10 Ml Total Volume IV PUSH 09/19/24 17:24 ONCE PRN adequate visualization Protocol Rivaroxaban 20 mg 09/17/24 21:00 09/18/24 20:41 Rivaroxaban 20 Mg Tablet PO 20 mg HS DESI Administration Sertraline HCl 50 mg 09/17/24 09:00 09/19/24 08:12 Sertraline Hcl 50 Mg Tablet PO 50 mg DAILY DESI Administration Vitamin D 25 mcg 09/17/24 09:00 09/19/24 08:11 Cholecalciferol (Vitamin D3) 25 Mcg (1,000 Units) Tablet PO 25 mcg DAILY DESI Administration Radiology Results: ITS Impressions Chest X-Ray 09/16/24 13:51 IMPRESSION: 1. No acute cardiopulmonary disease. Labs Labs: Laboratory Results - last 24 hr 09/18/24 09/18/24 09/18/24 11:48 16:12 19:37 WBC RBC Hgb Hct MCV MCH MCHC RDW Plt Count MPV Sodium Potassium Chloride Carbon Dioxide Anion Gap BUN Creatinine Estim Creat Clear Calc Estimated GFR Glucose POC Capillary Glucose 261 H 277 H 241 H Calcium Total Bilirubin AST ALT Alkaline Phosphatase Total Protein Albumin 09/19/24 09/19/24 03:54 07:32 WBC 7.8 RBC 3.97 L Hgb 12.0 Hct 36.5 L MCV 91.9 MCH 30.2 MCHC 32.9 RDW 13.6 Plt Count 202 MPV 10.7 H Sodium 136 L Potassium 4.1 Chloride 103 Carbon Dioxide 23 Anion Gap 10 BUN 30 H Creatinine 1.68 H Estim Creat Clear Calc 34 Estimated GFR 30 L Glucose 191 H POC Capillary Glucose 174 H Calcium 9.2 Total Bilirubin 0.8 AST 39 H ALT 21 Alkaline Phosphatase 80 Total Protein 7.1 Albumin 3.7
[2024-09-19] MEDS: INSULIN ASPART (*BKC) 100 UNITS/ML SUB-Q (11:49)
[2024-09-19 11:59] LABS: Glucose Point of Care 260 mg/dl (65-105)
== END 2024-09-19 13:27 | disposition home or self-care (01) | DRG 309 ==
LOC: ANHED 13:20 → ANHIMU 16:13
PROVIDERS: Emergency Medicine; Internal Medicine; Student in an Organized Health Care Education/Training Program; Admitting Provider Internal Medicine; Emergency Provider Physician Assistant; PCP Physician Assistant; Visit Provider General Practice
PROC: 5A2204Z Restoration of Cardiac Rhythm, Single (ICD-10-PCS; principal; 2024-09-18 14:00)
PROC: B24BZZ4 Ultrasonography of Heart with Aorta, Transesophageal (ICD-10-PCS; CPT 93312; 2024-09-18 14:00)
DX: I48.0 Paroxysmal atrial fibrillation (principal); Z68.41 Body mass index [BMI] 40.0-44.9, adult; D63.1 Anemia in chronic kidney disease; E11.22 Type 2 diabetes mellitus with diabetic chronic kidney disease; E66.01 Morbid (severe) obesity due to excess calories; I89.0 Lymphedema, not elsewhere classified; I12.9 Hypertensive chronic kidney disease with stage 1 through stage 4 chronic kidney disease, or unspecified chronic kidney disease; N18.32 Chronic kidney disease, stage 3b; R79.89 Other specified abnormal findings of blood chemistry; Z79.01 Long term (current) use of anticoagulants; Z79.84 Long term (current) use of oral hypoglycemic drugs; Z87.891 Personal history of nicotine dependence
CPT/HCPCS: 36415; 71046; 80053; 82948; 83036; 83690; 83735; 83880; 84484; 85025; 85027; 85610; 85730; 92960; 93005; 93306; 93312; 93320; 93325; 96366; 96374; 96375; 99285; A9270; G0378; J1815; J7040

== ENCOUNTER 2024-10-28 12:11 | Inpatient (IN) | payer MEDICARE, SELFPAY ==
[2024-10-28] VITALS (12 sets, daily range): BP systolic 95–136; BP diastolic 59–97; PULSE 68–140; RESP 16–22; TEMP 36.4–36.8; O2SAT 98–99; BMI 52.7
--- NOTE | ~2024-10-28 | XR_ITS ---
EXAMINATION: XR chest 2V DATE: 10/28/2024 20:26 INDICATION: Shortness of breath TECHNIQUE: frontal and lateral views of the chest were obtained. COMPARISON: Chest radiograph dated 09/16/2024 FINDINGS: Increased interstitial pattern and mild groundglass opacities in the bilateral dependent mid and lowe r lung zones and favor pulmonary edema over pneumonia. Small bilateral pleural effusions with bluntin g at the posterior sulci and with trace amount of fluid tracking along the fissures. No pneumothorax. The cardiomediastinal silhouette is normal. Visualized bones and soft tissues are unremarkable. IMPRESSION: 1. Interstitial and mild airspace opacities in dependent bilateral mid and lower lung zones and favor mild pulmonary edema over pneumonia. 2. Small bilateral pleural effusions. Reviewed, dictated and finalized at location A. IMPRESSION: 1. Interstitial and mild airspace opacities in dependent bilateral mid and lowe r lung zones and favor mild pulmonary edema over pneumonia. 2. Small bilateral pleural effusions.
--- NOTE | 2024-10-28 12:12 | ECG_ITS ---
Test Date: 2024-10-28 12:20:49 Measurements Intervals [place] Rate: 135 P: 0 [place]: 0 QRS: 25 QRSD: 100 T: 12 QT: 309 QTc: 463 Interpretive Statements ATRIAL FIBRILLATION WITH RAPID VENTRICULAR RESPONSE Electronically Signed On 10-29-2024 16:03:57 CDT by Chava Meraz D.O
--- OUTSIDE RECORDS SUMMARY | 2024-10-28 12:14 | XMS_ITS | Continuity of Care Document ---
Author Organization [facility] Address [address] [place] [address] Care Team Providers Care Supervisor Chemical Name Role Phone DAHIANA WARNER OTHER SHELBY MACKEY Orthopedic Surgeon PHU GRIFFIN Primary Care Provider Assessment No assessment recorded. Plan of Treatment Reminders Order Date Submit Date Provider Last Modified By Organization Details Last Modified Time Details Appointments LAB ONLY 2024 11:30A M Lab Not available Not available Not available ANY 30 2024 03:45P M DEVI MENDEZ Not available Not available Not available ANY 15 2024 11:00A M DEVI MENDEZ Not available Not available Not available Lab glucose, fingersti ck, blood 2024 025 MIAH In-Office Order, Internal Use Only DO Not Attach Compendium DO Not Attach Compendium, Do Not Delete/merge, [id number] 10/28/2024 12:44:37 Referral None recorded. Procedures None recorded. Surgeries None recorded. Imaging electroca rdiogram 2024 025 MIAH In-Office Order, Internal Use Only DO Not Attach Compendium DO Not Attach Compendium, Do Not Delete/merge, [id number] 10/28/2024 12:55:20 Medication Orders None recorded. Patient TargetsNo targets recorded. Patient InstructionsNo instructions recorded. Reason for Referral None Reported. Results Created Date Observation Date Name Description Value Unit Range Abnormal Flag Note LastModifiedBy Organization Detail LastModifiedTime 09/29/1909/28/2024 Gluco se [Mass /volu me] in Arter ial blood glucose [mass/volume ] in capillary blood by glucometer 164 mg/dL low: 70mg/d Lhigh: 99mg/d L high Not Available Not Available 10/28/2024 12:26:21 09/29/19 25 09/28/2024 Gluco se [Mass /volu me] in Arter ial blood specimen source identified Arteri al/Cap illary Not Available Not Available 12:26:21 09/29/19 25 09/28/2024 Gluco se [Mass /volu me] in Arter ial blood interpretati on and review of laboratory results Abnorm al Not Available Not Available 12:26:21 09/29/19 25 09/28/2024 Gluco se [Mass /volu me] in Arter ial blood glucose [mass/volume ] in capillary blood by glucometer 164 mg/dL low: 70mg/d Lhigh: 99mg/d L high Not Available Not Available 10/28/2024 12:16:12 09/29/19 25 09/28/2024 Gluco se [Mass /volu me] in Arter ial blood specimen source identified Arteri al/Cap illary Not Available Not Available 12:16:12 09/29/1909/28/2024 Gluco se [Mass /volu me] in Arter ial blood interpretati on and review of laboratory results Abnorm al Not Available Not Available 12:16:12 09/29/1909/28/2024 Basic metab olic 2000 panel - Serum or Plasm a urea nitrogen [mass/volume ] in serum or plasma 31 mg/dL low: 7mg/dL high: 26mg/d L high Not Available Not Available 10/28/2024 12:16:12 09/29/19 25 09/28/2024 Basic metab olic 2000 panel - Serum or Plasm a creatinine [mass/volume ] in serum or plasma 1.96 mg/dL low: 0.56mg /dLhig h: 0.96mg /dL high Not Available Not Available 10/28/2024 12:16:12 09/29/19 25 09/28/2024 Basic metab olic 2000 panel - Serum or Plasm a sodium [moles/volum e] in serum or plasma 133 mmol/ L low: 136mmo l/Lhig h: 145mmo l/L low Not Available Not Available 10/28/2024 12:16:12 09/29/19 25 09/28/2024 [facility] 1999 panel - Serum or Plasm a potassium [moles/volum e] in serum or plasma 4.9 mmol/ L low: 3.5mmo l/Lhig h: 4.5mmo l/L high Not Available Not Available 10/28/2024 12:16:12 09/29/19 25 09/28/2024 [facility] 1999 panel - Serum or Plasm a chloride [moles/volum e] in serum or plasma 105 mmol/ L low: 98mmol /Lhigh : 107mmo l/L Not Available Not Available 10/28/2024 12:16:12 09/29/19 25 09/28/2024 [facility] 1999 panel - Serum or Plasm a carbon dioxide, total [moles/volum e] in serum or plasma 21 mmol/ L low: 22mmol /Lhigh : 29mmol /L low Not Available Not Available 10/28/2024 12:16:12 09/29/19 25 09/28/2024 [facility] 1999 panel - Serum or Plasm a glucose [mass/volume ] in serum or plasma 164 mg/dL low: 70mg/d Lhigh: 99mg/d L high Not Available Not Available 10/28/2024 12:16:12 09/29/19 25 09/28/2024 [facility] 1999 panel - Serum or Plasm a calcium [moles/volum e] in serum or plasma 8.5 mg/dL low: 8.4mg/ dLhigh : 10.2mg /dL Not Available Not Available 10/28/2024 12:16:12 09/29/19 25 09/28/2024 [facility] 1999 panel - Serum or Plasm a anion gap 7 low: 6high: 16 Not Available Not Available 10/28/2024 12:16:12 09/29/19 25 09/28/2024 [facility] 1999 panel - Serum or Plasm a urea nitrogen/cre atinine [mass ratio] in serum or plasma 16 low: 7high: 23 Not Available Not Available 10/28/2024 12:16:12 09/29/19 25 09/28/2024 Basic metab olic 2000 panel - Serum or Plasm a osmolality calculated 286 text: 275 - 295 mOsm/k g Not Available Not Available 10/28/2024 12:16:12 09/29/19 25 09/28/2024 Basic metab olic 2000 panel - Serum or Plasm a glomerular filtration rate [volume rate/area] in serum, plasma or blood by creatinine-b ased formula (CKD-epi 2020)/1.73 sq M 26 text: >=90 mL/min /1.73 m2 low Not Available Not Available 10/28/2024 12:16:12 09/29/19 25 09/28/2024 Basic metab olic 2000 panel - Serum or Plasm a Unknown Analyte Estima isac Glomer ular Filtra tion Rate (eGFR) calcul ated using the CKD-EP I Creati nine Equati on (2020) , per the [employer] [employer] and [place] [employer] y of Nephro logy recomm endati ons. Not Available Not Available 12:16:12 09/29/19 25 09/28/2024 Basic metab olic 2000 panel - Serum or Plasm a interpretati on and review of laboratory results Abnorm al Not Available Not Available 12:16:12 09/29/19 25 09/28/2024 CBC W Auto Diffe renti al panel - Blood leukocytes [#/volume] in blood by automated count 8.6 text: 4.0 - 10.7 x10e9/ L Not Available Not Available 10/28/2024 12:16:12 09/29/19 25 09/28/2024 CBC W Auto Diffe renti al panel - Blood erythrocytes [#/volume] in blood by automated count 3.56 text: 3.90 - 5.20 x10e12 /L low Not Available Not Available 10/28/2024 12:16:12 09/29/19 25 09/28/2024 CBC W Auto Diffe renti al panel - Blood hemoglobin [mass/volume ] in blood 10.9 g/dL low: 11.9g/ dLhigh : 15.8g/ dL low Not Available Not Available 10/28/2024 12:16:12 09/29/19 25 09/28/2024 CBC W Auto Diffe renti al panel - Blood hematocrit [volume fraction] of blood by automated count 33.1 % low: 34.8%h igh: 46.1% low Not Available Not Available 10/28/2024 12:16:12 09/29/19 25 09/28/2024 CBC W Auto Diffe renti al panel - Blood MCV [entitic mean volume] in red blood cells by automated count 93 fL low: 80fLhi gh: 98fL Not Available Not Available 10/28/2024 12:16:12 09/29/19 25 09/28/2024 CBC W Auto Diffe renti al panel - Blood MCH [entitic mass] by automated count 30.6 pg low: 26.7pg high: 33.6pg Not Available Not Available 10/28/2024 12:16:12 09/29/19 25 09/28/2024 CBC W Auto Diffe renti al panel - Blood MCHC [entitic mass/volume] in red blood cells by automated count 32.9 g/dL low: 31.7g/ dLhigh : 36.3g/ dL Not Available Not Available 10/28/2024 12:16:12 09/29/19 25 09/28/2024 CBC W Auto Diffe renti al panel - Blood erythrocyte [distwidth] in red blood cells by automated count 13.9 % low: 11.3%h igh: 14.8% Not Available Not Available 10/28/2024 12:16:12 09/29/19 25 09/28/2024 CBC W Auto Diffe renti al panel - Blood platelets [#/volume] in blood by automated count 143 text: 150 - 420 x10e9/ L low Not Available Not Available 10/28/2024 12:16:12 09/29/19 25 09/28/2024 CBC W Auto Diffe renti al panel - Blood platelet [entitic mean volume] in blood by automated count 11 fL low: 7.8fLh igh: 11.4fL Not Available Not Available 10/28/2024 12:16:12 09/29/19 25 09/28/2024 CBC W Auto Diffe renti al panel - Blood neutrophils/ leukocytes in blood by automated count 60.5 % low: 41%hig h: 74% Not Available Not Available 10/28/2024 12:16:12 09/29/19 25 09/28/2024 CBC W Auto Diffe renti al panel - Blood lymphocytes/ leukocytes in blood by automated count 23.1 % low: 17%hig h: 47% Not Available Not Available 10/28/2024 12:16:12 09/29/19 25 09/28/2024 CBC W Auto Diffe renti al panel - Blood monocytes/le ukocytes in blood by automated count 11.8 % low: 3%high : 11% high Not Available Not Available 10/28/2024 12:16:12 09/29/19 25 09/28/2024 CBC W Auto Diffe renti al panel - Blood eosinophils/ leukocytes in blood by automated count 3.5 % low: 0%high : 7% Not Available Not Available 10/28/2024 12:16:12 09/29/19 25 09/28/2024 CBC W Auto Diffe renti al panel - Blood basophils/le ukocytes in blood by automated count 0.6 % low: 0%high : 1.6% Not Available Not Available 10/28/2024 12:16:12 09/29/19 25 09/28/2024 CBC W Auto Diffe renti al panel - Blood immature granulocytes /leukocytes in blood by automated count 0.5 % low: 0%high : 1% Not Available Not Available 10/28/2024 12:16:12 09/29/19 25 09/28/2024 CBC W Auto Diffe renti al panel - Blood neutrophils [#/volume] in blood by automated count 5.23 text: 1.60 - 7.50 x10e9/ L Not Available Not Available 10/28/2024 12:16:12 09/29/19 25 09/28/2024 CBC W Auto Diffe renti al panel - Blood lymphocytes [#/volume] in blood by automated count 2 text: 1.00 - 4.40 x10e9/ L Not Available Not Available 10/28/2024 12:16:12 09/29/19 25 09/28/2024 CBC W Auto Diffe renti al panel - Blood monocytes [#/volume] in blood by automated count 1.02 text: 0.15 - 1.00 x10e9/ L high Not Available Not Available 10/28/2024 12:16:12 09/29/19 25 09/28/2024 CBC W Auto Diffe renti al panel - Blood eosinophils [#/volume] in blood 0.3 text: 0.00 - 0.60 x10e9/ L Not Available Not Available 10/28/2024 12:16:12 09/29/19 25 09/28/2024 CBC W Auto Diffe renti al panel - Blood basophils [#/volume] in blood by automated count 0.05 text: 0.00 - 0.13 x10e9/ L Not Available Not Available 10/28/2024 12:16:12 09/29/19 25 09/28/2024 CBC W Auto Diffe renti al panel - Blood interpretati on and review of laboratory results Abnorm al Not Available Not Available 12:16:12 09/29/19 25 09/28/2024 Gluco se [Mass /volu me] in Arter ial blood glucose [mass/volume ] in capillary blood by glucometer 219 mg/dL low: 70mg/d Lhigh: 99mg/d L high Not Available Not Available 10/28/2024 12:26:22 09/29/19 25 09/28/2024 Gluco se [Mass /volu me] in Arter ial blood specimen source identified Arteri al/Cap illary Not Available Not Available 12:26:22 09/29/19 25 09/28/2024 Gluco se [Mass /volu me] in Arter ial blood interpretati on and review of laboratory results Abnorm al Not Available Not Available 12:26:22 09/29/19 25 09/28/2024 Gluco se [Mass /volu me] in Arter ial blood specimen source identified Arteri al/Cap illary Not Available Not Available 12:26:22 09/29/19 25 09/28/2024 Gluco se [Mass /volu me] in Arter ial blood interpretati on and review of laboratory results Abnorm al Not Available Not Available 12:26:22 09/29/19 25 09/28/2024 Gluco se [Mass /volu me] in Arter ial blood glucose [mass/volume ] in capillary blood by glucometer 219 mg/dL low: 70mg/d Lhigh: 99mg/d L high Not Available Not Available 10/28/2024 12:16:12 09/29/19 25 09/28/2024 Gluco se [Mass /volu me] in Arter ial blood specimen source identified Arteri al/Cap illary Not Available Not Available 12:16:12 09/29/19 25 09/28/2024 Gluco se [Mass /volu me] in Arter ial blood interpretati on and review of laboratory results Abnorm al Not Available Not Available 12:16:12 09/29/19 25 09/28/2024 Gluco se [Mass /volu me] in Arter ial blood glucose [mass/volume ] in capillary blood by glucometer low: 70mg/d Lhigh: 99mg/d L critical high Not Available Not Available 10/28/2024 12:16:12 09/29/19 25 09/28/2024 Gluco se [Mass /volu me] in Arter ial blood specimen source identified Arteri al/Cap illary Not Available Not Available 12:16:12 09/29/19 25 09/28/2024 Gluco se [Mass /volu me] in Arter ial blood interpretati on and review of laboratory results Abnorm al Not Available Not Available 12:16:12 09/29/19 25 09/28/2024 Gluco se [Mass /volu me] in Arter ial blood glucose [mass/volume ] in capillary blood by glucometer 261 mg/dL low: 70mg/d Lhigh: 99mg/d L high Not Available Not Available 10/28/2024 12:26:22 09/29/19 25 09/28/2024 Gluco se [Mass /volu me] in Arter ial blood specimen source identified Arteri al/Cap illary Not Available Not Available 12:26:22 09/29/19 25 09/28/2024 Gluco se [Mass /volu me] in Arter ial blood interpretati on and review of laboratory results Abnorm al Not Available Not Available 12:26:22 09/29/19 25 09/28/2024 Gluco se [Mass /volu me] in Arter ial blood glucose [mass/volume ] in capillary blood by glucometer 261 mg/dL low: 70mg/d Lhigh: 99mg/d L high Not Available Not Available 10/28/2024 12:16:12 09/29/19 25 09/28/2024 Gluco se [Mass /volu me] in Arter ial blood specimen source identified Arteri al/Cap illary Not Available Not Available 12:16:12 09/29/19 25 09/28/2024 Gluco se [Mass /volu me] in Arter ial blood interpretati on and review of laboratory results Abnorm al Not Available Not Available 12:16:12 09/29/19 25 09/28/2024 Gluco se [Mass /volu me] in Arter ial blood glucose [mass/volume ] in capillary blood by glucometer 229 mg/dL low: 70mg/d Lhigh: 99mg/d L high Not Available Not Available 10/28/2024 12:26:22 09/29/19 25 09/28/2024 Gluco se [Mass /volu me] in Arter ial blood specimen source identified Arteri al/Cap illary Not Available Not Available 12:26:22 09/29/19 25 09/28/2024 Gluco se [Mass /volu me] in Arter ial blood interpretati on and review of laboratory results Abnorm al Not Available Not Available 12:26:22 09/29/19 25 09/28/2024 Gluco se [Mass /volu me] in Arter ial blood glucose [mass/volume ] in capillary blood by glucometer 229 mg/dL low: 70mg/d Lhigh: 99mg/d L high Not Available Not Available 10/28/2024 12:16:12 09/29/19 25 09/28/2024 Gluco se [Mass /volu me] in Arter ial blood specimen source identified Arteri al/Cap illary Not Available Not Available 12:16:12 09/29/19 25 09/28/2024 Gluco se [Mass /volu me] in Arter ial blood interpretati on and review of laboratory results Abnorm al Not Available Not Available 12:16:12 09/29/19 25 09/28/2024 Gluco se [Mass /volu me] in Arter ial blood glucose [mass/volume ] in capillary blood by glucometer 175 mg/dL low: 70mg/d Lhigh: 99mg/d L high Not Available Not Available 10/28/2024 12:26:22 09/29/19 25 09/28/2024 Gluco se [Mass /volu me] in Arter ial blood specimen source identified Arteri al/Cap illary Not Available Not Available 12:26:22 09/29/19 25 09/28/2024 Gluco se [Mass /volu me] in Arter ial blood interpretati on and review of laboratory results Abnorm al Not Available Not Available 12:26:22 09/29/19 25 09/28/2024 Gluco se [Mass /volu me] in Arter ial blood glucose [mass/volume ] in capillary blood by glucometer 175 mg/dL low: 70mg/d Lhigh: 99mg/d L high Not Available Not Available 10/28/2024 12:16:12 09/29/19 25 09/28/2024 Gluco se [Mass /volu me] in Arter ial blood specimen source identified Arteri al/Cap illary Not Available Not Available 12:16:12 09/29/19 25 09/28/2024 Gluco se [Mass /volu me] in Arter ial blood interpretati on and review of laboratory results Abnorm al Not Available Not Available 12:16:12 09/29/19 25 09/28/2024 Phosp hate [Mass /volu me] in Serum or Plasm a phosphate [mass/volume ] in serum or plasma 4.7 mg/dL low: 2.9mg/ dLhigh : 5.1mg/ dL Not Available Not Available 10/28/2024 12:16:12 09/29/19 25 09/28/2024 Phosp hate [Mass /volu me] in Serum or Plasm a interpretati on and review of laboratory results Normal Not Available Not Available 10/02 12:16:12 09/29/19 25 09/28/2024 Magne sium [Mass /volu me] in Serum or Plasm a magnesium [mass/volume ] in serum or plasma 2.4 mg/dL low: 1.6mg/ dLhigh : 2.6mg/ dL Not Available Not Available 10/28/2024 12:16:12 09/29/19 25 09/28/2024 Magne sium [Mass /volu me] in Serum or Plasm a interpretati on and review of laboratory results Normal Not Available Not Available 10/02 12:16:12 09/29/19 25 09/28/2024 Basic metab olic 1999 panel - Serum or Plasm a urea nitrogen [mass/volume ] in serum or plasma 27 mg/dL low: 7mg/dL high: 26mg/d L high Not Available Not Available 10/28/2024 12:16:12 09/29/19 25 09/28/2024 Basic metab olic 1999 panel - Serum or Plasm a creatinine [mass/volume ] in serum or plasma 1.94 mg/dL low: 0.56mg /dLhig h: 0.96mg /dL high Not Available Not Available 10/28/2024 12:16:12 09/29/19 25 09/28/2024 [facility] - Serum or Plasm a sodium [moles/volum e] in serum or plasma 135 mmol/ L low: 136mmo l/Lhig h: 145mmo l/L low Not Available Not Available 10/28/2024 12:16:12 09/29/19 25 09/28/2024 Basic metab olic 1999 panel - Serum or Plasm a potassium [moles/volum e] in serum or plasma 4.8 mmol/ L low: 3.5mmo l/Lhig h: 4.5mmo l/L high Not Available Not Available 10/28/2024 12:16:12 09/29/19 25 09/28/2024 Basic metab olic 1999 panel - Serum or Plasm a chloride [moles/volum e] in serum or plasma 106 mmol/ L low: 98mmol /Lhigh : 107mmo l/L Not Available Not Available 10/28/2024 12:16:12 09/29/19 09/28/2024 Basic [facility] 1999 panel - Serum or Plasm a carbon dioxide, total [moles/volum e] in serum or plasma 22 mmol/ L low: 22mmol /Lhigh : 29mmol /L Not Available Not Available 10/28/2024 12:16:12 09/29/19 25 09/28/2024 Basic [facility] 1999 panel - Serum or Plasm a glucose [mass/volume ] in serum or plasma 170 mg/dL low: 70mg/d Lhigh: 99mg/d L high Not Available Not Available 10/28/2024 12:16:12 09/29/19 25 09/28/2024 Basic metab olic 1999 panel - Serum or Plasm a calcium [moles/volum e] in serum or plasma 8.7 mg/dL low: 8.4mg/ dLhigh : 10.2mg /dL Not Available Not Available 10/28/2024 12:16:12 09/29/19 25 09/28/2024 [facility] 1999 panel - Serum or Plasm a anion gap 7 low: 6high: 16 Not Available Not Available 10/28/2024 12:16:12 09/29/19 25 09/28/2024 [facility] 1999 panel - Serum or Plasm a urea nitrogen/cre atinine [mass ratio] in serum or plasma 14 low: 7high: 23 Not Available Not Available 10/28/2024 12:16:12 09/29/19 25 09/28/2024 [facility] 1999 panel - Serum or Plasm a osmolality calculated 289 text: 275 - 295 mOsm/k g Not Available Not Available 10/28/2024 12:16:12 09/29/19 25 09/28/2024 [facility] 1999 panel - Serum or Plasm a glomerular filtration rate [volume rate/area] in serum, plasma or blood by creatinine-b ased formula (CKD-epi 2020)/1.73 sq M 27 text: >=90 mL/min /1.73 m2 low Not Available Not Available 10/28/2024 12:16:12 09/29/19 25 09/28/2024 [facility] 1999 panel - Serum or Plasm a Unknown Analyte Estima isac Glomer ular Filtra tion Rate (eGFR) calcul ated using the CKD-EP I Creati nine Equati on (2020) , per the [place] Kid[employer]ion and [place] an [employer] y of Nephro logy recomm endati ons. Not Available Not Available 12:16:12 09/29/1909/28/2024 Basic metab olic 2000 panel - Serum or Plasm a interpretati on and review of laboratory results Abnorm al Not Available Not Available 12:16:12 09/30/19 25 09/29/2024 Gluco se [Mass /volu me] in Arter ial blood glucose [mass/volume ] in capillary blood by glucometer 231 mg/dL low: 70mg/d Lhigh: 99mg/d L high Not Available Not Available 10/28/2024 12:16:13 09/30/19 25 09/29/2024 Gluco se [Mass /volu me] in Arter ial blood specimen source identified Arteri al/Cap illary Not Available Not Available 12:16:13 09/30/19 25 09/29/2024 Gluco se [Mass /volu me] in Arter ial blood interpretati on and review of laboratory results Abnorm al Not Available Not Available 12:16:13 09/30/19 25 09/29/2024 Gluco se [Mass /volu me] in Arter ial blood glucose [mass/volume ] in capillary blood by glucometer 300 mg/dL low: 70mg/d Lhigh: 99mg/d L high Not Available Not Available 10/28/2024 12:26:21 09/30/19 25 09/29/2024 Gluco se [Mass /volu me] in Arter ial blood specimen source identified Arteri al/Cap illary Not Available Not Available 12:26:21 09/30/19 25 09/29/2024 Gluco se [Mass /volu me] in Arter ial blood interpretati on and review of laboratory results Abnorm al Not Available Not Available 12:26:21 09/30/19 25 09/29/2024 Gluco se [Mass /volu me] in Arter ial blood glucose [mass/volume ] in capillary blood by glucometer 300 mg/dL low: 70mg/d Lhigh: 99mg/d L high Not Available Not Available 10/28/2024 12:16:13 09/30/19 25 09/29/2024 Gluco se [Mass /volu me] in Arter ial blood specimen source identified Arteri al/Cap illary Not Available Not Available 12:16:13 09/30/19 25 09/29/2024 Gluco se [Mass /volu me] in Arter ial blood interpretati on and review of laboratory results Abnorm al Not Available Not Available 12:16:13 09/30/19 25 09/29/2024 Basic metab olic 1999 panel - Serum or Plasm a urea nitrogen [mass/volume ] in serum or plasma 25 mg/dL low: 7mg/dL high: 26mg/d L Not Available Not Available 10/28/2024 12:16:13 09/30/19 25 09/29/2024 Basic metab olic 1999 panel - Serum or Plasm a creatinine [mass/volume ] in serum or plasma 1.55 mg/dL low: 0.56mg /dLhig h: 0.96mg /dL high Not Available Not Available 10/28/2024 12:16:13 09/30/19 25 09/29/2024 Basic metab olic 1999 panel - Serum or Plasm a sodium [moles/volum e] in serum or plasma 135 mmol/ L low: 136mmo l/Lhig h: 145mmo l/L low Not Available Not Available 10/28/2024 12:16:13 09/30/19 25 09/29/2024 Basic metab olic 1999 panel - Serum or Plasm a potassium [moles/volum e] in serum or plasma 5.2 mmol/ L low: 3.5mmo l/Lhig h: 4.5mmo l/L high Not Available Not Available 10/28/2024 12:16:13 09/30/19 25 09/29/2024 Basic metab olic 1999 panel - Serum or Plasm a chloride [moles/volum e] in serum or plasma 104 mmol/ L low: 98mmol /Lhigh : 107mmo l/L Not Available Not Available 10/28/2024 12:16:13 09/30/19 25 09/29/2024 Basic metab olic 1999 panel - Serum or Plasm a carbon dioxide, total [moles/volum e] in serum or plasma 24 mmol/ L low: 22mmol /Lhigh : 29mmol /L Not Available Not Available 10/28/2024 12:16:13 09/30/1909/29/2024 [facility] 1999 panel - Serum or Plasm a glucose [mass/volume ] in serum or plasma 296 mg/dL low: 70mg/d Lhigh: 99mg/d L high Not Available Not Available 10/28/2024 12:16:13 09/30/19 25 09/29/2024 [facility] 1999 panel - Serum or Plasm a calcium [moles/volum e] in serum or plasma 8.8 mg/dL low: 8.4mg/ dLhigh : 10.2mg /dL Not Available Not Available 10/28/2024 12:16:13 09/30/1909/29/2024 [facility] 1999 panel - Serum or Plasm a anion gap 7 low: 6high: 16 Not Available Not Available 10/28/2024 12:16:13 09/30/1909/29/2024 [facility] 1999 panel - Serum or Plasm a urea nitrogen/cre atinine [mass ratio] in serum or plasma 16 low: 7high: 23 Not Available Not Available 10/28/2024 12:16:13 09/30/1909/29/2024 [facility] 1999 panel - Serum or Plasm a osmolality calculated 295 text: 275 - 295 mOsm/k g Not Available Not Available 10/28/2024 12:16:13 09/30/1909/29/2024 [facility] 1999 panel - Serum or Plasm a glomerular filtration rate [volume rate/area] in serum, plasma or blood by creatinine-b ased formula (CKD-epi 2020)/1.73 sq M 35 text: >=90 mL/min /1.73 m2 low Not Available Not Available 10/28/2024 12:16:13 09/30/1909/29/2024 [facility] 1999 panel - Serum or Plasm a Unknown Analyte Estima isac Glomer ular Filtra tion Rate (eGFR) calcul ated using the CKD-EP I Creati nine Equati on (2020) , per the [employer] [place] [employer] and [place] [employer] y of Nephro logy recomm endati ons. Not Available Not Available 12:16:13 09/30/19 25 09/29/2024 Basic metab olic 2000 panel - Serum or Plasm a interpretati on and review of laboratory results Abnorm al Not Available Not Available 12:16:13 09/30/19 25 09/29/2024 Gluco se [Mass /volu me] in Arter ial blood glucose [mass/volume ] in capillary blood by glucometer 286 mg/dL low: 70mg/d Lhigh: 99mg/d L high Not Available Not Available 10/28/2024 12:26:21 09/30/19 25 09/29/2024 Gluco se [Mass /volu me] in Arter ial blood specimen source identified Arteri al/Cap illary Not Available Not Available 12:26:21 09/30/19 25 09/29/2024 Gluco se [Mass /volu me] in Arter ial blood interpretati on and review of laboratory results Abnorm al Not Available Not Available 12:26:21 09/30/19 25 09/29/2024 Gluco se [Mass /volu me] in Arter ial blood glucose [mass/volume ] in capillary blood by glucometer 286 mg/dL low: 70mg/d Lhigh: 99mg/d L high Not Available Not Available 10/28/2024 12:16:13 09/30/19 25 09/29/2024 Gluco se [Mass /volu me] in Arter ial blood specimen source identified Arteri al/Cap illary Not Available Not Available 12:16:13 09/30/19 25 09/29/2024 Gluco se [Mass /volu me] in Arter ial blood interpretati on and review of laboratory results Abnorm al Not Available Not Available 12:16:13 09/30/19 25 09/29/2024 Gluco se [Mass /volu me] in Arter ial blood glucose [mass/volume ] in capillary blood by glucometer 360 mg/dL low: 70mg/d Lhigh: 99mg/d L high Not Available Not Available 10/28/2024 12:26:21 09/30/19 25 09/29/2024 Gluco se [Mass /volu me] in Arter ial blood specimen source identified Arteri al/Cap illary Not Available Not Available 12:26:21 09/30/19 25 09/29/2024 Gluco se [Mass /volu me] in Arter ial blood interpretati on and review of laboratory results Abnorm al Not Available Not Available 12:26:21 09/30/19 25 09/29/2024 Gluco se [Mass /volu me] in Arter ial blood glucose [mass/volume ] in capillary blood by glucometer 360 mg/dL low: 70mg/d Lhigh: 99mg/d L high Not Available Not Available 10/28/2024 12:16:13 09/30/19 25 09/29/2024 Gluco se [Mass /volu me] in Arter ial blood specimen source identified Arteri al/Cap illary Not Available Not Available 12:16:13 09/30/19 25 09/29/2024 Gluco se [Mass /volu me] in Arter ial blood interpretati on and review of laboratory results Abnorm al Not Available Not Available 12:16:13 09/30/19 25 09/29/2024 Gluco se [Mass /volu me] in Arter ial blood glucose [mass/volume ] in capillary blood by glucometer 371 mg/dL low: 70mg/d Lhigh: 99mg/d L high Not Available Not Available 10/28/2024 12:26:21 09/30/19 25 09/29/2024 Gluco se [Mass /volu me] in Arter ial blood specimen source identified Arteri al/Cap illary Not Available Not Available 12:26:21 09/30/19 25 09/29/2024 Gluco se [Mass /volu me] in Arter ial blood interpretati on and review of laboratory results Abnorm al Not Available Not Available 12:26:21 09/30/19 25 09/29/2024 Gluco se [Mass /volu me] in Arter ial blood glucose [mass/volume ] in capillary blood by glucometer 371 mg/dL low: 70mg/d Lhigh: 99mg/d L high Not Available Not Available 10/28/2024 12:16:13 09/30/19 25 09/29/2024 Gluco se [Mass /volu me] in Arter ial blood specimen source identified Arteri al/Cap illary Not Available Not Available 12:16:13 09/30/19 25 09/29/2024 Gluco se [Mass /volu me] in Arter ial blood interpretati on and review of laboratory results Abnorm al Not Available Not Available 12:16:13 09/30/19 25 09/29/2024 Gluco se [Mass /volu me] in Arter ial blood glucose [mass/volume ] in capillary blood by glucometer 161 mg/dL low: 70mg/d Lhigh: 99mg/d L high Not Available Not Available 10/28/2024 12:26:21 09/30/19 25 09/29/2024 Gluco se [Mass /volu me] in Arter ial blood specimen source identified Arteri al/Cap illary Not Available Not Available 12:26:21 09/30/19 25 09/29/2024 Gluco se [Mass /volu me] in Arter ial blood interpretati on and review of laboratory results Abnorm al Not Available Not Available 12:26:21 09/30/19 25 09/29/2024 Gluco se [Mass /volu me] in Arter ial blood glucose [mass/volume ] in capillary blood by glucometer 161 mg/dL low: 70mg/d Lhigh: 99mg/d L high Not Available Not Available 10/28/2024 12:16:13 09/30/19 25 09/29/2024 Gluco se [Mass /volu me] in Arter ial blood specimen source identified Arteri al/Cap illary Not Available Not Available 12:16:13 09/30/19 25 09/29/2024 Gluco se [Mass /volu me] in Arter ial blood interpretati on and review of laboratory results Abnorm al Not Available Not Available 12:16:13 09/30/19 25 09/29/2024 Gluco se [Mass /volu me] in Arter ial blood glucose [mass/volume ] in capillary blood by glucometer 191 mg/dL low: 70mg/d Lhigh: 99mg/d L high Not Available Not Available 10/28/2024 12:26:21 09/30/19 25 09/29/2024 Gluco se [Mass /volu me] in Arter ial blood specimen source identified Arteri al/Cap illary Not Available Not Available 12:26:21 09/30/19 25 09/29/2024 Gluco se [Mass /volu me] in Arter ial blood interpretati on and review of laboratory results Abnorm al Not Available Not Available 12:26:21 09/30/19 25 09/29/2024 Gluco se [Mass /volu me] in Arter ial blood glucose [mass/volume ] in capillary blood by glucometer 191 mg/dL low: 70mg/d Lhigh: 99mg/d L high Not Available Not Available 10/28/2024 12:16:13 09/30/19 25 09/29/2024 Gluco se [Mass /volu me] in Arter ial blood specimen source identified Arteri al/Cap illary Not Available Not Available 12:16:13 09/30/1909/29/2024 Gluco se [Mass /volu me] in Arter ial blood interpretati on and review of laboratory results Abnorm al Not Available Not Available 12:16:13 09/30/1909/29/2024 Phosp hate [Mass /volu me] in Serum or Plasm a phosphate [mass/volume ] in serum or plasma 4 mg/dL low: 2.9mg/ dLhigh : 5.1mg/ dL Not Available Not Available 10/28/2024 12:16:13 09/30/19 25 09/29/2024 Phosp hate [Mass /volu me] in Serum or Plasm a interpretati on and review of laboratory results Normal Not Available Not Available 10/02 12:16:13 09/30/19 25 09/29/2024 Magne sium [Mass /volu me] in Serum or Plasm a magnesium [mass/volume ] in serum or plasma 2.4 mg/dL low: 1.6mg/ dLhigh : 2.6mg/ dL Not Available Not Available 10/28/2024 12:16:13 09/30/1909/29/2024 Magne sium [Mass /volu me] in Serum or Plasm a interpretati on and review of laboratory results Normal Not Available Not Available 10/02 12:16:13 09/30/1909/29/2024 Basic metab olic 1999 panel - Serum or Plasm a urea nitrogen [mass/volume ] in serum or plasma 30 mg/dL low: 7mg/dL high: 26mg/d L high Not Available Not Available 10/28/2024 12:16:13 09/30/19 25 09/29/2024 Basic metab olic 1999 panel - Serum or Plasm a creatinine [mass/volume ] in serum or plasma 1.83 mg/dL low: 0.56mg /dLhig h: 0.96mg /dL high Not Available Not Available 10/28/2024 12:16:13 09/30/19 25 09/29/2024 Basic metab olic 1999 panel - Serum or Plasm a sodium [moles/volum e] in serum or plasma 136 mmol/ L low: 136mmo l/Lhig h: 145mmo l/L Not Available Not Available 10/28/2024 12:16:13 09/30/19 25 09/29/2024 Basic metab olic 1999 panel - Serum or Plasm a potassium [moles/volum e] in serum or plasma 5 mmol/ L low: 3.5mmo l/Lhig h: 4.5mmo l/L high Not Available Not Available 10/28/2024 12:16:13 09/30/19 25 09/29/2024 Basic metab olic 1999 panel - Serum or Plasm a chloride [moles/volum e] in serum or plasma 106 mmol/ L low: 98mmol /Lhigh : 107mmo l/L Not Available Not Available 10/28/2024 12:16:13 09/30/19 25 09/29/2024 Basic metab olic 1999 panel - Serum or Plasm a carbon dioxide, total [moles/volum e] in serum or plasma 23 mmol/ L low: 22mmol /Lhigh : 29mmol /L Not Available Not Available 10/28/2024 12:16:13 09/30/19 25 09/29/2024 Basic metab olic 1999 panel - Serum or Plasm a glucose [mass/volume ] in serum or plasma 216 mg/dL low: 70mg/d Lhigh: 99mg/d L high Not Available Not Available 10/28/2024 12:16:13 09/30/19 25 09/29/2024 Basic metab olic 1999 panel - Serum or Plasm a calcium [moles/volum e] in serum or plasma 8.8 mg/dL low: 8.4mg/ dLhigh : 10.2mg /dL Not Available Not Available 10/28/2024 12:16:13 09/30/1909/29/2024 Basic metab olic 1999 panel - Serum or Plasm a anion gap 7 low: 6high: 16 Not Available Not Available 10/28/2024 12:16:13 09/30/1909/29/2024 Basic metab olic 2000 panel - Serum or Plasm a urea nitrogen/cre atinine [mass ratio] in serum or plasma 16 low: 7high: 23 Not Available Not Available 10/28/2024 12:16:13 09/30/1909/29/2024 Basic metab olic 1999 panel - Serum or Plasm a osmolality calculated 295 text: 275 - 295 mOsm/k g Not Available Not Available 10/28/2024 12:16:13 09/30/19 25 09/29/2024 Basic metab olic 2000 panel - Serum or Plasm a glomerular filtration rate [volume rate/area] in serum, plasma or blood by creatinine-b ased formula (CKD-epi 2020)/1.73 sq M 28 text: >=90 mL/min /1.73 m2 low Not Available Not Available 10/28/2024 12:16:13 09/30/1909/29/2024 Basic metab olic 1999 panel - Serum or Plasm a Unknown Analyte Estima isac Glomer ular Filtra tion Rate (eGFR) calcul ated using the CKD-EP I Creati nine Equati on (2020) , per the [facility] and [employer] recomm endati ons. Not Available Not Available 12:16:13 09/30/19 25 09/29/2024 Basic metab olic 2000 panel - Serum or Plasm a interpretati on and review of laboratory results Abnorm al Not Available Not Available 12:16:13 09/30/19 25 09/29/2024 Thyro tropi n [Unit s/vol ume] in Serum or Plasm a thyrotropin [units/volum e] in serum or plasma by detection limit <= 0.005 mIU/L 3.173 text: 0.350 - 4.940 uIU/mL Not Available Not Available 10/28/2024 12:15:55 09/30/19 25 09/29/2024 Thyro tropi n [Unit s/vol ume] in Serum or Plasm a interpretati on and review of laboratory results Normal Not Available Not Available 10/02 12:15:55 09/30/19 25 09/29/2024 CBC W Auto Diffe kavitha al panel - Blood leukocytes [#/volume] in blood by automated count 7.9 text: 4.0 - 10.7 x10e9/ L Not Available Not Available 10/28/2024 12:16:12 09/30/19 25 09/29/2024 CBC W Auto Diffe renti al panel - Blood erythrocytes [#/volume] in blood by automated count 3.87 text: 3.90 - 5.20 x10e12 /L low Not Available Not Available 10/28/2024 12:16:12 09/30/19 25 09/29/2024 CBC W Auto Diffe renti al panel - Blood hemoglobin [mass/volume ] in blood 11.6 g/dL low: 11.9g/ dLhigh : 15.8g/ dL low Not Available Not Available 10/28/2024 12:16:12 09/30/19 25 09/29/2024 CBC W Auto Diffe renti al panel - Blood hematocrit [volume fraction] of blood by automated count 36.6 % low: 34.8%h igh: 46.1% Not Available Not Available 10/28/2024 12:16:12 09/30/19 25 09/29/2024 CBC W Auto Diffe renti al panel - Blood MCV [entitic mean volume] in red blood cells by automated count 94.6 fL low: 80fLhi gh: 98fL Not Available Not Available 10/28/2024 12:16:12 09/30/1909/29/2024 CBC W Auto Diffe renti al panel - Blood MCH [entitic mass] by automated count 30 pg low: 26.7pg high: 33.6pg Not Available Not Available 10/28/2024 12:16:12 09/30/1909/29/2024 CBC W Auto Diffe renti al panel - Blood MCHC [entitic mass/volume] in red blood cells by automated count 31.7 g/dL low: 31.7g/ dLhigh : 36.3g/ dL Not Available Not Available 10/28/2024 12:16:12 09/30/1909/29/2024 CBC W Auto Diffe renti al panel - Blood erythrocyte [distwidth] in red blood cells by automated count 13.8 % low: 11.3%h igh: 14.8% Not Available Not Available 10/28/2024 12:16:12 09/30/1909/29/2024 CBC W Auto Diffe renti al panel - Blood platelets [#/volume] in blood by automated count 158 text: 150 - 420 x10e9/ L Not Available Not Available 10/28/2024 12:16:12 09/30/1909/29/2024 CBC W Auto Diffe renti al panel - Blood platelet [entitic mean volume] in blood by automated count 11.3 fL low: 7.8fLh igh: 11.4fL Not Available Not Available 10/28/2024 12:16:12 09/30/1909/29/2024 CBC W Auto Diffe renti al panel - Blood neutrophils/ leukocytes in blood by automated count 60 % low: 41%hig h: 74% Not Available Not Available 10/28/2024 12:16:12 09/30/1909/29/2024 CBC W Auto Diffe renti al panel - Blood lymphocytes/ leukocytes in blood by automated count 22.9 % low: 17%hig h: 47% Not Available Not Available 10/28/2024 12:16:12 09/30/1909/29/2024 CBC W Auto Diffe renti al panel - Blood monocytes/le ukocytes in blood by automated count 11.6 % low: 3%high : 11% high Not Available Not Available 10/28/2024 12:16:12 09/30/1909/29/2024 CBC W Auto Diffe renti al panel - Blood eosinophils/ leukocytes in blood by automated count 4.6 % low: 0%high : 7% Not Available Not Available 10/28/2024 12:16:12 09/30/1909/29/2024 CBC W Auto Diffe renti al panel - Blood basophils/le ukocytes in blood by automated count 0.6 % low: 0%high : 1.6% Not Available Not Available 10/28/2024 12:16:12 09/30/1909/29/2024 CBC W Auto Diffe renti al panel - Blood immature granulocytes /leukocytes in blood by automated count 0.3 % low: 0%high : 1% Not Available Not Available 10/28/2024 12:16:12 09/30/1909/29/2024 CBC W Auto Diffe renti al panel - Blood neutrophils [#/volume] in blood by automated count 4.73 text: 1.60 - 7.50 x10e9/ L Not Available Not Available 10/28/2024 12:16:12 09/30/1909/29/2024 CBC W Auto Diffe renti al panel - Blood lymphocytes [#/volume] in blood by automated count 1.8 text: 1.00 - 4.40 x10e9/ L Not Available Not Available 10/28/2024 12:16:12 09/30/1909/29/2024 CBC W Auto Diffe renti al panel - Blood monocytes [#/volume] in blood by automated count 0.91 text: 0.15 - 1.00 x10e9/ L Not Available Not Available 10/28/2024 12:16:12 09/30/1909/29/2024 CBC W Auto Diffe renti al panel - Blood eosinophils [#/volume] in blood 0.36 text: 0.00 - 0.60 x10e9/ L Not Available Not Available 10/28/2024 12:16:12 09/30/1909/29/2024 CBC W Auto Diffe renti al panel - Blood basophils [#/volume] in blood by automated count 0.05 text: 0.00 - 0.13 x10e9/ L Not Available Not Available 10/28/2024 12:16:12 09/30/19 25 09/29/2024 CBC W Auto Diffe kavitha al panel - Blood interpretati on and review of laboratory results Abnorm al Not Available Not Available 12:16:12 10/01/19 25 09/30/2024 Gluco se [Mass /volu me] in Arter ial blood glucose [mass/volume ] in capillary blood by glucometer 152 mg/dL low: 70mg/d Lhigh: 99mg/d L high Not Available Not Available 10/28/2024 12:26:21 10/01/19 25 09/30/2024 Gluco se [Mass /volu me] in Arter ial blood specimen source identified Arteri al/Cap illary Not Available Not Available 12:26:21 10/01/19 25 09/30/2024 Gluco se [Mass /volu me] in Arter ial blood interpretati on and review of laboratory results Abnorm al Not Available Not Available 12:26:21 10/01/19 25 09/30/2024 Gluco se [Mass /volu me] in Arter ial blood glucose [mass/volume ] in capillary blood by glucometer 152 mg/dL low: 70mg/d Lhigh: 99mg/d L high Not Available Not Available 10/28/2024 12:16:14 10/01/19 25 09/30/2024 Gluco se [Mass /volu me] in Arter ial blood specimen source identified Arteri al/Cap illary Not Available Not Available 12:16:14 10/01/19 25 09/30/2024 Gluco se [Mass /volu me] in Arter ial blood interpretati on and review of laboratory results Abnorm al Not Available Not Available 12:16:14 10/01/19 25 09/30/2024 Gluco se [Mass /volu me] in Arter ial blood glucose [mass/volume ] in capillary blood by glucometer 306 mg/dL low: 70mg/d Lhigh: 99mg/d L high Not Available Not Available 10/28/2024 12:26:21 10/01/19 25 09/30/2024 Gluco se [Mass /volu me] in Arter ial blood specimen source identified Arteri al/Cap illary Not Available Not Available 12:26:21 10/01/19 25 09/30/2024 Gluco se [Mass /volu me] in Arter ial blood interpretati on and review of laboratory results Abnorm al Not Available Not Available 12:26:21 10/01/19 25 09/30/2024 Gluco se [Mass /volu me] in Arter ial blood glucose [mass/volume ] in capillary blood by glucometer 306 mg/dL low: 70mg/d Lhigh: 99mg/d L high Not Available Not Available 10/28/2024 12:16:14 10/01/19 25 09/30/2024 Gluco se [Mass /volu me] in Arter ial blood specimen source identified Arteri al/Cap illary Not Available Not Available 12:16:14 10/01/19 25 09/30/2024 Gluco se [Mass /volu me] in Arter ial blood interpretati on and review of laboratory results Abnorm al Not Available Not Available 12:16:14 10/01/19 25 09/30/2024 Basic metab olic 2000 panel - Serum or Plasm a urea nitrogen [mass/volume ] in serum or plasma 26 mg/dL low: 7mg/dL high: 26mg/d L Not Available Not Available 10/28/2024 12:16:14 10/01/19 25 09/30/2024 Basic metab olic 2000 panel - Serum or Plasm a creatinine [mass/volume ] in serum or plasma 1.51 mg/dL low: 0.56mg /dLhig h: 0.96mg /dL high Not Available Not Available 10/28/2024 12:16:14 10/01/19 25 09/30/2024 Basic metab olic 2000 panel - Serum or Plasm a sodium [moles/volum e] in serum or plasma 132 mmol/ L low: 136mmo l/Lhig h: 145mmo l/L low Not Available Not Available 10/28/2024 12:16:14 10/01/19 25 09/30/2024 [facility] 1999 panel - Serum or Plasm a potassium [moles/volum e] in serum or plasma 4.9 mmol/ L low: 3.5mmo l/Lhig h: 4.5mmo l/L high Not Available Not Available 10/28/2024 12:16:14 10/01/19 25 09/30/2024 [facility] 1999 panel - Serum or Plasm a chloride [moles/volum e] in serum or plasma 104 mmol/ L low: 98mmol /Lhigh : 107mmo l/L Not Available Not Available 10/28/2024 12:16:14 10/01/19 25 09/30/2024 [facility] 1999 panel - Serum or Plasm a carbon dioxide, total [moles/volum e] in serum or plasma 20 mmol/ L low: 22mmol /Lhigh : 29mmol /L low Not Available Not Available 10/28/2024 12:16:14 10/01/19 25 09/30/2024 [facility] 1999 panel - Serum or Plasm a glucose [mass/volume ] in serum or plasma 292 mg/dL low: 70mg/d Lhigh: 99mg/d L high Not Available Not Available 10/28/2024 12:16:14 10/01/19 25 09/30/2024 [facility] 1999 panel - Serum or Plasm a calcium [moles/volum e] in serum or plasma 9.2 mg/dL low: 8.4mg/ dLhigh : 10.2mg /dL Not Available Not Available 10/28/2024 12:16:14 10/01/19 25 09/30/2024 [facility] 1999 panel - Serum or Plasm a anion gap 8 low: 6high: 16 Not Available Not Available 10/28/2024 12:16:14 10/01/1909/30/2024 [facility] 1999 panel - Serum or Plasm a urea nitrogen/cre atinine [mass ratio] in serum or plasma 17 low: 7high: 23 Not Available Not Available 10/28/2024 12:16:14 10/01/19 25 09/30/2024 [facility] 1999 panel - Serum or Plasm a osmolality calculated 290 text: 275 - 295 mOsm/k g Not Available Not Available 10/28/2024 12:16:14 10/01/19 25 09/30/2024 Basic metab olic 2000 panel - Serum or Plasm a glomerular filtration rate [volume rate/area] in serum, plasma or blood by creatinine-b ased formula (CKD-epi 2020)/1.73 sq M 36 text: >=90 mL/min /1.73 m2 low Not Available Not Available 10/28/2024 12:16:14 10/01/19 25 09/30/2024 Basic metab olic 2000 panel - Serum or Plasm a Unknown Analyte Estima isac Glomer ular Filtra tion Rate (eGFR) calcul ated using the CKD-EP I Creati nine Equati on (2020) , per the [facility] and [place] [employer] recomm endati ons. Not Available Not Available 12:16:14 10/01/19 25 09/30/2024 Basic metab olic 2000 panel - Serum or Plasm a interpretati on and review of laboratory results Abnorm al Not Available Not Available 12:16:14 10/01/19 25 09/30/2024 Gluco se [Mass /volu me] in Arter ial blood glucose [mass/volume ] in capillary blood by glucometer 222 mg/dL low: 70mg/d Lhigh: 99mg/d L high Not Available Not Available 10/28/2024 12:16:14 10/01/19 25 09/30/2024 Gluco se [Mass /volu me] in Arter ial blood specimen source identified Arteri al/Cap illary Not Available Not Available 12:16:14 10/01/19 25 09/30/2024 Gluco se [Mass /volu me] in Arter ial blood interpretati on and review of laboratory results Abnorm al Not Available Not Available 12:16:14 10/01/19 25 09/30/2024 Gluco se [Mass /volu me] in Arter ial blood glucose [mass/volume ] in capillary blood by glucometer 182 mg/dL low: 70mg/d Lhigh: 99mg/d L high Not Available Not Available 10/28/2024 12:26:21 10/01/19 25 09/30/2024 Gluco se [Mass /volu me] in Arter ial blood specimen source identified Arteri al/Cap illary Not Available Not Available 12:26:21 10/01/19 25 09/30/2024 Gluco se [Mass /volu me] in Arter ial blood interpretati on and review of laboratory results Abnorm al Not Available Not Available 12:26:21 10/01/19 25 09/30/2024 Gluco se [Mass /volu me] in Arter ial blood glucose [mass/volume ] in capillary blood by glucometer 182 mg/dL low: 70mg/d Lhigh: 99mg/d L high Not Available Not Available 10/28/2024 12:16:14 10/01/19 25 09/30/2024 Gluco se [Mass /volu me] in Arter ial blood specimen source identified Arteri al/Cap illary Not Available Not Available 12:16:14 10/01/19 25 09/30/2024 Gluco se [Mass /volu me] in Arter ial blood interpretati on and review of laboratory results Abnorm al Not Available Not Available 12:16:14 10/01/19 25 09/30/2024 Phosp hate [Mass /volu me] in Serum or Plasm a phosphate [mass/volume ] in serum or plasma 4 mg/dL low: 2.9mg/ dLhigh : 5.1mg/ dL Not Available Not Available 10/28/2024 12:16:14 10/01/19 25 09/30/2024 Phosp hate [Mass /volu me] in Serum or Plasm a interpretati on and review of laboratory results Normal Not Available Not Available 10/02 12:16:14 10/01/19 25 09/30/2024 Magne sium [Mass /volu me] in Serum or Plasm a magnesium [mass/volume ] in serum or plasma 2.1 mg/dL low: 1.6mg/ dLhigh : 2.6mg/ dL Not Available Not Available 10/28/2024 12:16:13 10/01/19 25 09/30/2024 Magne sium [Mass /volu me] in Serum or Plasm a interpretati on and review of laboratory results Normal Not Available Not Available 10/02 12:16:13 10/01/19 25 09/30/2024 [facility] 1999 panel - Serum or Plasm a urea nitrogen [mass/volume ] in serum or plasma 24 mg/dL low: 7mg/dL high: 26mg/d L Not Available Not Available 10/28/2024 12:16:13 10/01/19 25 09/30/2024 [facility] 1999 panel - Serum or Plasm a creatinine [mass/volume ] in serum or plasma 1.45 mg/dL low: 0.56mg /dLhig h: 0.96mg /dL high Not Available Not Available 10/28/2024 12:16:13 10/01/19 25 09/30/2024 [facility] 1999 panel - Serum or Plasm a sodium [moles/volum e] in serum or plasma 136 mmol/ L low: 136mmo l/Lhig h: 145mmo l/L Not Available Not Available 10/28/2024 12:16:13 10/01/19 25 09/30/2024 [facility] 1999 panel - Serum or Plasm a potassium [moles/volum e] in serum or plasma 5.3 mmol/ L low: 3.5mmo l/Lhig h: 4.5mmo l/L high Not Available Not Available 10/28/2024 12:16:13 10/01/19 25 09/30/2024 [facility] 1999 panel - Serum or Plasm a chloride [moles/volum e] in serum or plasma 107 mmol/ L low: 98mmol /Lhigh : 107mmo l/L Not Available Not Available 10/28/2024 12:16:13 10/01/19 25 09/30/2024 [facility] 1999 panel - Serum or Plasm a carbon dioxide, total [moles/volum e] in serum or plasma 25 mmol/ L low: 22mmol /Lhigh : 29mmol /L Not Available Not Available 10/28/2024 12:16:13 10/01/19 25 09/30/2024 [facility] 1999 panel - Serum or Plasm a glucose [mass/volume ] in serum or plasma 216 mg/dL low: 70mg/d Lhigh: 99mg/d L high Not Available Not Available 10/28/2024 12:16:13 10/01/19 25 09/30/2024 Basic metab olic 1999 panel - Serum or Plasm a calcium [moles/volum e] in serum or plasma 9.2 mg/dL low: 8.4mg/ dLhigh : 10.2mg /dL Not Available Not Available 10/28/2024 12:16:13 10/01/19 25 09/30/2024 Basic metab olic 1999 panel - Serum or Plasm a anion gap 4 low: 6high: 16 low Not Available Not Available 10/28/2024 12:16:13 10/01/1909/30/2024 Basic metab olic 1999 panel - Serum or Plasm a urea nitrogen/cre atinine [mass ratio] in serum or plasma 17 low: 7high: 23 Not Available Not Available 10/28/2024 12:16:13 10/01/19 25 09/30/2024 Basic metab olic 1999 panel - Serum or Plasm a osmolality calculated 293 text: 275 - 295 mOsm/k g Not Available Not Available 10/28/2024 12:16:13 10/01/19 25 09/30/2024 Basic metab olic 1999 panel - Serum or Plasm a glomerular filtration rate [volume rate/area] in serum, plasma or blood by creatinine-b ased formula (CKD-epi 2020)/1.73 sq M 38 text: >=90 mL/min /1.73 m2 low Not Available Not Available 10/28/2024 12:16:13 10/01/19 25 09/30/2024 Basic metab olic 1999 panel - Serum or Plasm a Unknown Analyte Estima isac Glomer ular Filtra tion Rate (eGFR) calcul ated using the CKD-EP I Creati nine Equati on (2020) , per the [facility] and [employer] Ne[employer]y recomm endati ons. Not Available Not Available 12:16:13 10/01/19 25 09/30/2024 Basic metab olic 1999 panel - Serum or Plasm a interpretati on and review of laboratory results Abnorm al Not Available Not Available 12:16:13 10/01/19 25 09/30/2024 CBC W Auto Diffe renti al panel - Blood leukocytes [#/volume] in blood by automated count 7.1 text: 4.0 - 10.7 x10e9/ L Not Available Not Available 10/28/2024 12:15:54 10/01/19 25 09/30/2024 CBC W Auto Diffe renti al panel - Blood erythrocytes [#/volume] in blood by automated count 4.06 text: 3.90 - 5.20 x10e12 /L Not Available Not Available 10/28/2024 12:15:54 10/01/19 25 09/30/2024 CBC W Auto Diffe renti al panel - Blood hemoglobin [mass/volume ] in blood 12 g/dL low: 11.9g/ dLhigh : 15.8g/ dL Not Available Not Available 10/28/2024 12:15:54 10/01/19 25 09/30/2024 CBC W Auto Diffe renti al panel - Blood hematocrit [volume fraction] of blood by automated count 38.2 % low: 34.8%h igh: 46.1% Not Available Not Available 10/28/2024 12:15:54 10/01/19 25 09/30/2024 CBC W Auto Diffe renti al panel - Blood MCV [entitic mean volume] in red blood cells by automated count 94.1 fL low: 80fLhi gh: 98fL Not Available Not Available 10/28/2024 12:15:54 10/01/19 25 09/30/2024 CBC W Auto Diffe renti al panel - Blood MCH [entitic mass] by automated count 29.6 pg low: 26.7pg high: 33.6pg Not Available Not Available 10/28/2024 12:15:54 10/01/19 25 09/30/2024 CBC W Auto Diffe renti al panel - Blood MCHC [entitic mass/volume] in red blood cells by automated count 31.4 g/dL low: 31.7g/ dLhigh : 36.3g/ dL low Not Available Not Available 10/28/2024 12:15:54 10/01/19 25 09/30/2024 CBC W Auto Diffe renti al panel - Blood erythrocyte [distwidth] in red blood cells by automated count 13.4 % low: 11.3%h igh: 14.8% Not Available Not Available 10/28/2024 12:15:54 10/01/1909/30/2024 CBC W Auto Diffe renti al panel - Blood platelets [#/volume] in blood by automated count 170 text: 150 - 420 x10e9/ L Not Available Not Available 10/28/2024 12:15:54 10/01/1909/30/2024 CBC W Auto Diffe renti al panel - Blood platelet [entitic mean volume] in blood by automated count 10.8 fL low: 7.8fLh igh: 11.4fL Not Available Not Available 10/28/2024 12:15:54 10/01/1909/30/2024 CBC W Auto Diffe renti al panel - Blood neutrophils/ leukocytes in blood by automated count 55.3 % low: 41%hig h: 74% Not Available Not Available 10/28/2024 12:15:54 10/01/19 25 09/30/2024 CBC W Auto Diffe renti al panel - Blood lymphocytes/ leukocytes in blood by automated count 26.4 % low: 17%hig h: 47% Not Available Not Available 10/28/2024 12:15:54 10/01/1909/30/2024 CBC W Auto Diffe renti al panel - Blood monocytes/le ukocytes in blood by automated count 11.5 % low: 3%high : 11% high Not Available Not Available 10/28/2024 12:15:54 10/01/1909/30/2024 CBC W Auto Diffe renti al panel - Blood eosinophils/ leukocytes in blood by automated count 5.5 % low: 0%high : 7% Not Available Not Available 10/28/2024 12:15:54 10/01/19 25 09/30/2024 CBC W Auto Diffe renti al panel - Blood basophils/le ukocytes in blood by automated count 0.7 % low: 0%high : 1.6% Not Available Not Available 10/28/2024 12:15:54 10/01/19 25 09/30/2024 CBC W Auto Diffe renti al panel - Blood immature granulocytes /leukocytes in blood by automated count 0.6 % low: 0%high : 1% Not Available Not Available 10/28/2024 12:15:54 10/01/1909/30/2024 CBC W Auto Diffe renti al panel - Blood neutrophils [#/volume] in blood by automated count 3.95 text: 1.60 - 7.50 x10e9/ L Not Available Not Available 10/28/2024 12:15:54 10/01/1909/30/2024 CBC W Auto Diffe renti al panel - Blood lymphocytes [#/volume] in blood by automated count 1.88 text: 1.00 - 4.40 x10e9/ L Not Available Not Available 10/28/2024 12:15:54 10/01/1909/30/2024 CBC W Auto Diffe renti al panel - Blood monocytes [#/volume] in blood by automated count 0.82 text: 0.15 - 1.00 x10e9/ L Not Available Not Available 10/28/2024 12:15:54 10/01/1909/30/2024 CBC W Auto Diffe renti al panel - Blood eosinophils [#/volume] in blood 0.39 text: 0.00 - 0.60 x10e9/ L Not Available Not Available 10/28/2024 12:15:54 10/01/1909/30/2024 CBC W Auto Diffe renti al panel - Blood basophils [#/volume] in blood by automated count 0.05 text: 0.00 - 0.13 x10e9/ L Not Available Not Available 10/28/2024 12:15:54 10/01/1909/30/2024 CBC W Auto Diffe renti al panel - Blood interpretati on and review of laboratory results Abnorm al Not Available Not Available 12:15:54 10/01/1909/30/2024 Gluco se [Mass /volu me] in Arter ial blood glucose [mass/volume ] in capillary blood by glucometer 198 mg/dL low: 70mg/d Lhigh: 99mg/d L high Not Available Not Available 10/28/2024 12:26:21 10/01/19 25 09/30/2024 Gluco se [Mass /volu me] in Arter ial blood specimen source identified Arteri al/Cap illary Not Available Not Available 12:26:21 10/01/19 25 09/30/2024 Gluco se [Mass /volu me] in Arter ial blood interpretati on and review of laboratory results Abnorm al Not Available Not Available 12:26:21 10/01/19 25 09/30/2024 Gluco se [Mass /volu me] in Arter ial blood glucose [mass/volume ] in capillary blood by glucometer 198 mg/dL low: 70mg/d Lhigh: 99mg/d L high Not Available Not Available 10/28/2024 12:16:13 10/01/19 25 09/30/2024 Gluco se [Mass /volu me] in Arter ial blood specimen source identified Arteri al/Cap illary Not Available Not Available 12:16:13 10/01/19 25 09/30/2024 Gluco se [Mass /volu me] in Arter ial blood interpretati on and review of laboratory results Abnorm al Not Available Not Available 12:16:13 10/02/19 25 10/01/2024 Gluco se [Mass /volu me] in Arter ial blood glucose [mass/volume ] in capillary blood by glucometer 262 mg/dL low: 70mg/d Lhigh: 99mg/d L high Not Available Not Available 10/28/2024 12:26:20 10/02/19 25 10/01/2024 Gluco se [Mass /volu me] in Arter ial blood specimen source identified Arteri al/Cap illary Not Available Not Available 12:26:20 10/02/19 25 10/01/2024 Gluco se [Mass /volu me] in Arter ial blood interpretati on and review of laboratory results Abnorm al Not Available Not Available 12:26:20 10/02/19 25 10/01/2024 Gluco se [Mass /volu me] in Arter ial blood glucose [mass/volume ] in capillary blood by glucometer 262 mg/dL low: 70mg/d Lhigh: 99mg/d L high Not Available Not Available 10/28/2024 12:16:15 10/02/19 25 10/01/2024 Gluco se [Mass /volu me] in Arter ial blood specimen source identified Arteri al/Cap illary Not Available Not Available 12:16:15 10/02/19 25 10/01/2024 Gluco se [Mass /volu me] in Arter ial blood interpretati on and review of laboratory results Abnorm al Not Available Not Available 12:16:15 10/02/19 25 10/01/2024 Gluco se [Mass /volu me] in Arter ial blood glucose [mass/volume ] in capillary blood by glucometer 149 mg/dL low: 70mg/d Lhigh: 99mg/d L high Not Available Not Available 10/28/2024 12:26:21 10/02/19 25 10/01/2024 Gluco se [Mass /volu me] in Arter ial blood specimen source identified Arteri al/Cap illary Not Available Not Available 12:26:21 10/02/19 25 10/01/2024 Gluco se [Mass /volu me] in Arter ial blood interpretati on and review of laboratory results Abnorm al Not Available Not Available 12:26:21 10/02/19 25 10/01/2024 Gluco se [Mass /volu me] in Arter ial blood glucose [mass/volume ] in capillary blood by glucometer 149 mg/dL low: 70mg/d Lhigh: 99mg/d L high Not Available Not Available 10/28/2024 12:16:15 10/02/19 25 10/01/2024 Gluco se [Mass /volu me] in Arter ial blood specimen source identified Arteri al/Cap illary Not Available Not Available 12:16:15 10/02/19 25 10/01/2024 Gluco se [Mass /volu me] in Arter ial blood interpretati on and review of laboratory results Abnorm al Not Available Not Available 12:16:15 10/02/19 25 10/01/2024 Gluco se [Mass /volu me] in Arter ial blood glucose [mass/volume ] in capillary blood by glucometer 278 mg/dL low: 70mg/d Lhigh: 99mg/d L high Not Available Not Available 10/28/2024 12:26:21 10/02/19 25 10/01/2024 Gluco se [Mass /volu me] in Arter ial blood specimen source identified Arteri al/Cap illary Not Available Not Available 12:26:21 10/02/19 25 10/01/2024 Gluco se [Mass /volu me] in Arter ial blood interpretati on and review of laboratory results Abnorm al Not Available Not Available 12:26:21 10/02/19 25 10/01/2024 Gluco se [Mass /volu me] in Arter ial blood glucose [mass/volume ] in capillary blood by glucometer 278 mg/dL low: 70mg/d Lhigh: 99mg/d L high Not Available Not Available 10/28/2024 12:16:14 10/02/19 25 10/01/2024 Gluco se [Mass /volu me] in Arter ial blood specimen source identified Arteri al/Cap illary Not Available Not Available 12:16:14 10/02/19 25 10/01/2024 Gluco se [Mass /volu me] in Arter ial blood interpretati on and review of laboratory results Abnorm al Not Available Not Available 12:16:14 10/02/19 25 10/01/2024 Gluco se [Mass /volu me] in Arter ial blood glucose [mass/volume ] in capillary blood by glucometer 191 mg/dL low: 70mg/d Lhigh: 99mg/d L high Not Available Not Available 10/28/2024 12:26:21 10/02/19 25 10/01/2024 Gluco se [Mass /volu me] in Arter ial blood specimen source identified Arteri al/Cap illary Not Available Not Available 12:26:21 10/02/19 25 10/01/2024 Gluco se [Mass /volu me] in Arter ial blood interpretati on and review of laboratory results Abnorm al Not Available Not Available 12:26:21 10/02/19 25 10/01/2024 Gluco se [Mass /volu me] in Arter ial blood glucose [mass/volume ] in capillary blood by glucometer 191 mg/dL low: 70mg/d Lhigh: 99mg/d L high Not Available Not Available 10/28/2024 12:16:14 10/02/19 25 10/01/2024 Gluco se [Mass /volu me] in Arter ial blood specimen source identified Arteri al/Cap illary Not Available Not Available 12:16:14 10/02/19 25 10/01/2024 Gluco se [Mass /volu me] in Arter ial blood interpretati on and review of laboratory results Abnorm al Not Available Not Available 12:16:14 10/02/19 25 10/01/2024 Gluco se [Mass /volu me] in Arter ial blood glucose [mass/volume ] in capillary blood by glucometer 221 mg/dL low: 70mg/d Lhigh: 99mg/d L high Not Available Not Available 10/28/2024 12:26:21 10/02/19 25 10/01/2024 Gluco se [Mass /volu me] in Arter ial blood specimen source identified Arteri al/Cap illary Not Available Not Available 12:26:21 10/02/19 25 10/01/2024 Gluco se [Mass /volu me] in Arter ial blood interpretati on and review of laboratory results Abnorm al Not Available Not Available 12:26:21 10/02/19 25 10/01/2024 Gluco se [Mass /volu me] in Arter ial blood glucose [mass/volume ] in capillary blood by glucometer 221 mg/dL low: 70mg/d Lhigh: 99mg/d L high Not Available Not Available 10/28/2024 12:16:14 10/02/19 25 10/01/2024 Gluco se [Mass /volu me] in Arter ial blood specimen source identified Arteri al/Cap illary Not Available Not Available 12:16:14 10/02/19 25 10/01/2024 Gluco se [Mass /volu me] in Arter ial blood interpretati on and review of laboratory results Abnorm al Not Available Not Available 12:16:14 10/02/19 25 10/01/2024 Phosp hate [Mass /volu me] in Serum or Plasm a phosphate [mass/volume ] in serum or plasma 4.6 mg/dL low: 2.9mg/ dLhigh : 5.1mg/ dL Not Available Not Available 10/28/2024 12:16:14 10/02/19 25 10/01/2024 Phosp hate [Mass /volu me] in Serum or Plasm a interpretati on and review of laboratory results Normal Not Available Not Available 10/02 12:16:14 10/02/19 25 10/01/2024 Magne sium [Mass /volu me] in Serum or Plasm a magnesium [mass/volume ] in serum or plasma 2 mg/dL low: 1.6mg/ dLhigh : 2.6mg/ dL Not Available Not Available 10/28/2024 12:16:14 10/02/19 25 10/01/2024 Magne sium [Mass /volu me] in Serum or Plasm a interpretati on and review of laboratory results Normal Not Available Not Available 10/02 12:16:14 10/02/19 25 10/01/2024 Basic metab olic 2000 panel - Serum or Plasm a urea nitrogen [mass/volume ] in serum or plasma 30 mg/dL low: 7mg/dL high: 26mg/d L high Not Available Not Available 10/28/2024 12:16:14 10/02/19 25 10/01/2024 Basic metab olic 2000 panel - Serum or Plasm a creatinine [mass/volume ] in serum or plasma 1.61 mg/dL low: 0.56mg /dLhig h: 0.96mg /dL high Not Available Not Available 10/28/2024 12:16:14 10/02/19 25 10/01/2024 Basic metab olic 2000 panel - Serum or Plasm a sodium [moles/volum e] in serum or plasma 134 mmol/ L low: 136mmo l/Lhig h: 145mmo l/L low Not Available Not Available 10/28/2024 12:16:14 10/02/19 25 10/01/2024 Basic metab olic 2000 panel - Serum or Plasm a potassium [moles/volum e] in serum or plasma 4.9 mmol/ L low: 3.5mmo l/Lhig h: 4.5mmo l/L high Not Available Not Available 10/28/2024 12:16:14 10/02/19 25 10/01/2024 [facility] - Serum or Plasm a chloride [moles/volum e] in serum or plasma 103 mmol/ L low: 98mmol /Lhigh : 107mmo l/L Not Available Not Available 10/28/2024 12:16:14 10/02/19 25 10/01/2024 [facility] panel - Serum or Plasm a carbon dioxide, total [moles/volum e] in serum or plasma 23 mmol/ L low: 22mmol /Lhigh : 29mmol /L Not Available Not Available 10/28/2024 12:16:14 10/02/19 25 10/01/2024 [facility] 1999 panel - Serum or Plasm a glucose [mass/volume ] in serum or plasma 205 mg/dL low: 70mg/d Lhigh: 99mg/d L high Not Available Not Available 10/28/2024 12:16:14 10/02/19 25 10/01/2024 [facility] 1999 panel - Serum or Plasm a calcium [moles/volum e] in serum or plasma 9 mg/dL low: 8.4mg/ dLhigh : 10.2mg /dL Not Available Not Available 10/28/2024 12:16:14 10/02/19 25 10/01/2024 [facility] 1999 panel - Serum or Plasm a anion gap 8 low: 6high: 16 Not Available Not Available 10/28/2024 12:16:14 10/02/19 25 10/01/2024 [facility] 1999 panel - Serum or Plasm a urea nitrogen/cre atinine [mass ratio] in serum or plasma 19 low: 7high: 23 Not Available Not Available 10/28/2024 12:16:14 10/02/19 25 10/01/2024 [facility] 1999 panel - Serum or Plasm a osmolality calculated 290 text: 275 - 295 mOsm/k g Not Available Not Available 10/28/2024 12:16:14 10/02/19 25 10/01/2024 Basic metab olic 2000 panel - Serum or Plasm a glomerular filtration rate [volume rate/area] in serum, plasma or blood by creatinine-b ased formula (CKD-epi 2020)/1.73 sq M 33 text: >=90 mL/min /1.73 m2 low Not Available Not Available 10/28/2024 12:16:14 10/02/19 25 10/01/2024 Basic metab olic 2000 panel - Serum or Plasm a Unknown Analyte Estima isac Glomer ular Filtra tion Rate (eGFR) calcul ated using the CKD-EP I Creati nine Equati on (2020) , per the [facility] and [place] [employer] Ne[employer] log[employer] recomm endati ons. Not Available Not Available 12:16:14 10/02/19 25 10/01/2024 Basic metab olic 2000 panel - Serum or Plasm a interpretati on and review of laboratory results Abnorm al Not Available Not Available 12:16:14 10/03/19 25 10/02/2024 Gluco se [Mass /volu me] in Arter ial blood glucose [mass/volume ] in capillary blood by glucometer 290 mg/dL low: 70mg/d Lhigh: 99mg/d L high Not Available Not Available 10/28/2024 12:26:20 10/03/19 25 10/02/2024 Gluco se [Mass /volu me] in Arter ial blood specimen source identified Arteri al/Cap illary Not Available Not Available 12:26:20 10/03/19 25 10/02/2024 Gluco se [Mass /volu me] in Arter ial blood interpretati on and review of laboratory results Abnorm al Not Available Not Available 12:26:20 10/03/19 25 10/02/2024 Gluco se [Mass /volu me] in Arter ial blood glucose [mass/volume ] in capillary blood by glucometer 290 mg/dL low: 70mg/d Lhigh: 99mg/d L high Not Available Not Available 10/28/2024 12:16:15 10/03/19 25 10/02/2024 Gluco se [Mass /volu me] in Arter ial blood specimen source identified Arteri al/Cap illary Not Available Not Available 12:16:15 10/03/19 25 10/02/2024 Gluco se [Mass /volu me] in Arter ial blood interpretati on and review of laboratory results Abnorm al Not Available Not Available 12:16:15 10/03/19 25 10/02/2024 Gluco se [Mass /volu me] in Arter ial blood glucose [mass/volume ] in capillary blood by glucometer 291 mg/dL low: 70mg/d Lhigh: 99mg/d L high Not Available Not Available 10/28/2024 12:26:20 10/03/19 25 10/02/2024 Gluco se [Mass /volu me] in Arter ial blood specimen source identified Arteri al/Cap illary Not Available Not Available 12:26:20 10/03/19 25 10/02/2024 Gluco se [Mass /volu me] in Arter ial blood interpretati on and review of laboratory results Abnorm al Not Available Not Available 12:26:20 10/03/19 25 10/02/2024 Gluco se [Mass /volu me] in Arter ial blood glucose [mass/volume ] in capillary blood by glucometer 291 mg/dL low: 70mg/d Lhigh: 99mg/d L high Not Available Not Available 10/28/2024 12:16:15 10/03/19 25 10/02/2024 Gluco se [Mass /volu me] in Arter ial blood specimen source identified Arteri al/Cap illary Not Available Not Available 12:16:15 10/03/19 25 10/02/2024 Gluco se [Mass /volu me] in Arter ial blood interpretati on and review of laboratory results Abnorm al Not Available Not Available 12:16:15 10/03/19 25 10/02/2024 Gluco se [Mass /volu me] in Arter ial blood glucose [mass/volume ] in capillary blood by glucometer 197 mg/dL low: 70mg/d Lhigh: 99mg/d L high Not Available Not Available 10/28/2024 12:26:20 10/03/19 25 10/02/2024 Gluco se [Mass /volu me] in Arter ial blood specimen source identified Arteri al/Cap illary Not Available Not Available 12:26:20 10/03/19 25 10/02/2024 Gluco se [Mass /volu me] in Arter ial blood interpretati on and review of laboratory results Abnorm al Not Available Not Available 12:26:20 10/03/19 25 10/02/2024 Gluco se [Mass /volu me] in Arter ial blood glucose [mass/volume ] in capillary blood by glucometer 197 mg/dL low: 70mg/d Lhigh: 99mg/d L high Not Available Not Available 10/28/2024 12:16:15 10/03/19 25 10/02/2024 Gluco se [Mass /volu me] in Arter ial blood specimen source identified Arteri al/Cap illary Not Available Not Available 12:16:15 10/03/19 25 10/02/2024 Gluco se [Mass /volu me] in Arter ial blood interpretati on and review of laboratory results Abnorm al Not Available Not Available 12:16:15 10/03/19 25 10/02/2024 Lip[facility] 1996 panel - Serum or Plasm a cholesterol [mass/volume ] in serum or plasma 131 mg/dL text: see_co mment [Auto mated messa ge] The syste m which gener ated this resul t trans mitte d refer ence range : <=200 . The refer ence range was not used to inter pret this resul t as tatiana l/abn ormal . Not Available Not Available 10/28/2024 12:26:20 10/03/19 25 10/02/2024 Lipid 1996 panel - Serum or Plasm a cholesterol in HDL [mass/volume ] in serum or plasma 31 mg/dL text: see_co mment low [Auto mated messa ge] The syste m which gener ated this resul t trans mitte d refer ence range : >=40. The refer ence range was not used to inter pret this resul t as tatiana l/abn ormal . Not Available Not Available 10/28/2024 12:26:20 10/03/19 25 10/02/2024 Lipid 1996 panel - Serum or Plasm a cholesterol in LDL [mass/volume ] in serum or plasma by calculation 76 mg/dL text: see_co mment [Auto mated messa ge] The syste m which gener ated this resul t trans mitte d refer ence range : <=100 . The refer ence range was not used to inter pret this resul t as tatiana l/abn ormal . Not Available Not Available 10/28/2024 12:26:20 10/03/19 25 10/02/2024 Lipid 1996 panel - Serum or Plasm a tricyclic antidepressa nts [mass/volume ] in serum or plasma 122 mg/dL text: see_co mment [Auto mated messa ge] The syste m which gener ated this resul t trans mitte d refer ence range : <=150 . The refer ence range was not used to inter pret this resul t as tatiana l/abn ormal . Not Available Not Available 10/28/2024 12:26:20 10/03/19 25 10/02/2024 Lipid 1996 panel - Serum or Plasm a interpretati on and review of laboratory results Abnorm al Not Available Not Available 12:26:20 10/03/19 25 10/02/2024 Phosp hate [Mass /volu me] in Serum or Plasm a phosphate [mass/volume ] in serum or plasma 4 mg/dL low: 2.9mg/ dLhigh : 5.1mg/ dL Not Available Not Available 10/28/2024 12:16:15 10/03/19 25 10/02/2024 Phosp hate [Mass /volu me] in Serum or Plasm a interpretati on and review of laboratory results Normal Not Available Not Available 10/02 12:16:15 10/03/19 25 10/02/2024 Magne sium [Mass /volu me] in Serum or Plasm a magnesium [mass/volume ] in serum or plasma 2 mg/dL low: 1.6mg/ dLhigh : 2.6mg/ dL Not Available Not Available 10/28/2024 12:16:15 10/03/19 25 10/02/2024 Magne sium [Mass /volu me] in Serum or Plasm a interpretati on and review of laboratory results Normal Not Available Not Available 10/02 12:16:15 10/03/19 25 10/02/2024 [facility] 1999 panel - Serum or Plasm a urea nitrogen [mass/volume ] in serum or plasma 27 mg/dL low: 7mg/dL high: 26mg/d L high Not Available Not Available 10/28/2024 12:16:15 10/03/19 25 10/02/2024 [facility] 1999 panel - Serum or Plasm a creatinine [mass/volume ] in serum or plasma 1.56 mg/dL low: 0.56mg /dLhig h: 0.96mg /dL high Not Available Not Available 10/28/2024 12:16:15 10/03/19 25 10/02/2024 [facility] 1999 panel - Serum or Plasm a sodium [moles/volum e] in serum or plasma 133 mmol/ L low: 136mmo l/Lhig h: 145mmo l/L low Not Available Not Available 10/28/2024 12:16:15 10/03/19 25 10/02/2024 [facility] 1999 panel - Serum or Plasm a potassium [moles/volum e] in serum or plasma 4.6 mmol/ L low: 3.5mmo l/Lhig h: 4.5mmo l/L high Not Available Not Available 10/28/2024 12:16:15 10/03/19 25 10/02/2024 [facility] 1999 panel - Serum or Plasm a chloride [moles/volum e] in serum or plasma 104 mmol/ L low: 98mmol /Lhigh : 107mmo l/L Not Available Not Available 10/28/2024 12:16:15 10/03/19 25 10/02/2024 [facility] 1999 panel - Serum or Plasm a carbon dioxide, total [moles/volum e] in serum or plasma 23 mmol/ L low: 22mmol /Lhigh : 29mmol /L Not Available Not Available 10/28/2024 12:16:15 10/03/19 25 10/02/2024 [facility] 1999 panel - Serum or Plasm a glucose [mass/volume ] in serum or plasma 241 mg/dL low: 70mg/d Lhigh: 99mg/d L high Not Available Not Available 10/28/2024 12:16:15 10/03/19 25 10/02/2024 Basic metab olic 1999 panel - Serum or Plasm a calcium [moles/volum e] in serum or plasma 8.9 mg/dL low: 8.4mg/ dLhigh : 10.2mg /dL Not Available Not Available 10/28/2024 12:16:15 10/03/19 25 10/02/2024 Basic metab olic 1999 panel - Serum or Plasm a anion gap 6 low: 6high: 16 Not Available Not Available 10/28/2024 12:16:15 10/03/19 25 10/02/2024 Basic metab olic 1999 panel - Serum or Plasm a urea nitrogen/cre atinine [mass ratio] in serum or plasma 17 low: 7high: 23 Not Available Not Available 10/28/2024 12:16:15 10/03/19 25 10/02/2024 Basic metab olic 2000 panel - Serum or Plasm a osmolality calculated 289 text: 275 - 295 mOsm/k g Not Available Not Available 10/28/2024 12:16:15 10/03/19 25 10/02/2024 Basic metab olic 1999 panel - Serum or Plasm a glomerular filtration rate [volume rate/area] in serum, plasma or blood by creatinine-b ased formula (CKD-epi 2020)/1.73 sq M 34 text: >=90 mL/min /1.73 m2 low Estim ated Glome rular Filtr ation Rate (eGFR ) calcu lated using the CKD-E PI Creat inine Equat ion (2020 ), per the [facility] and [employer] ty of Nephr ology recom menda tions . Not Available Not Available 10/28/2024 12:16:15 10/03/19 25 10/02/2024 Basic metab olic 1999 panel - Serum or Plasm a interpretati on and review of laboratory results Abnorm al Not Available Not Available 12:16:15 10/03/19 25 10/02/2024 Lipid 1996 panel - Serum or Plasm a cholesterol [mass/volume ] in serum or plasma 131 mg/dL high: 200mg/ dL Not Available Not Available 10/28/2024 12:15:53 10/03/19 25 10/02/2024 Lipid 1996 panel - Serum or Plasm a cholesterol in HDL [mass/volume ] in serum or plasma 31 mg/dL low: 40mg/d L low ATP III Class ifica tion of HDL Ange stero l: <40 mg/dL : Consi dered a major risk facto r. >60 mg/dL : Consi dered a negat liza risk facto r. Not Available Not Available 10/28/2024 12:15:53 10/03/19 25 10/02/2024 Lipid 1996 panel - Serum or Plasm a cholesterol in LDL [mass/volume ] in serum or plasma by calculation 76 mg/dL high: 100mg/ dL ATP III Class ifica tion of LDL Ange stero l: <100 mg/dL : Optim al 100 - 129 mg/dL : Near Optim al/Ab ove Optim al 130 - 159 mg/dL : Borde rline High 160 - 189 mg/dL : High >190 mg/dL : Very High LDL is calcu lated using the Fried harvinder equat ion. Not Available Not Available 10/28/2024 12:15:53 10/03/19 25 10/02/2024 Lipid 1996 panel - Serum or Plasm a tricyclic antidepressa nts [mass/volume ] in serum or plasma 122 mg/dL high: 150mg/ dL ATP III Class ifica tion of Trigl yceri marli: <150 mg/dL : Tatiana l 150 - 199 mg/dL : Borde rline High 200 - 400 mg/dL : High >500 mg/dL : Very High Not Available Not Available 10/28/2024 12:15:53 10/03/19 25 10/02/2024 Lipid 1996 panel - Serum or Plasm a interpretati on and review of laboratory results Abnorm al Not Available Not Available 12:15:53 10/03/19 25 10/02/2024 Gluco se [Mass /volu me] in Arter ial blood glucose [mass/volume ] in capillary blood by glucometer 229 mg/dL low: 70mg/d Lhigh: 99mg/d L high Not Available Not Available 10/28/2024 12:26:20 10/03/19 25 10/02/2024 Gluco se [Mass /volu me] in Arter ial blood specimen source identified Arteri al/Cap illary Not Available Not Available 12:26:20 10/03/19 25 10/02/2024 Gluco se [Mass /volu me] in Arter ial blood interpretati on and review of laboratory results Abnorm al Not Available Not Available 12:26:20 10/03/19 25 10/02/2024 Gluco se [Mass /volu me] in Arter ial blood glucose [mass/volume ] in capillary blood by glucometer 229 mg/dL low: 70mg/d Lhigh: 99mg/d L high Not Available Not Available 10/28/2024 12:16:15 10/03/19 25 10/02/2024 Gluco se [Mass /volu me] in Arter ial blood specimen source identified Arteri al/Cap illary Not Available Not Available 12:16:15 10/03/19 25 10/02/2024 Gluco se [Mass /volu me] in Arter ial blood interpretati on and review of laboratory results Abnorm al Not Available Not Available 12:16:15 10/04/19 25 10/03/2024 Gluco se [Mass /volu me] in Arter ial blood glucose [mass/volume ] in capillary blood by glucometer 289 mg/dL low: 70mg/d Lhigh: 99mg/d L high Not Available Not Available 10/28/2024 12:26:20 10/04/19 25 10/03/2024 Gluco se [Mass /volu me] in Arter ial blood specimen source identified Arteri al/Cap illary Not Available Not Available 12:26:20 10/04/19 25 10/03/2024 Gluco se [Mass /volu me] in Arter ial blood interpretati on and review of laboratory results Abnorm al Not Available Not Available 12:26:20 10/04/19 25 10/03/2024 Gluco se [Mass /volu me] in Arter ial blood glucose [mass/volume ] in capillary blood by glucometer 289 mg/dL low: 70mg/d Lhigh: 99mg/d L high Not Available Not Available 10/28/2024 12:16:17 10/04/19 25 10/03/2024 Gluco se [Mass /volu me] in Arter ial blood specimen source identified Arteri al/Cap illary Not Available Not Available 12:16:17 10/04/19 25 10/03/2024 Gluco se [Mass /volu me] in Arter ial blood interpretati on and review of laboratory results Abnorm al Not Available Not Available 12:16:17 10/04/19 25 10/09/2024 Bacte abbe ident ified in Blood by Cultu re microorganis m identified in specimen by culture Growth of Staphy lococc us epider midis critical abnormal Possi ble conta minan t unles s multi ple cultu res are posit liza for the same isola te. Not Available Not Available 10/28/2024 12:16:17 10/04/19 25 10/09/2024 Bacte abbe ident ified in Blood by Cultu re microscopic observation [identifier] in specimen by gram stain Gram-p ositiv e cocci in cluste rs critical abnormal Not Available Not Available 10/28/2024 12:16:17 10/04/19 25 10/09/2024 Bacte abbe ident ified in Blood by Cultu re Unknown Analyte Positi ve at 16 Hours 8 Minute s Not Available Not Available 12:16:17 10/04/19 25 10/09/2024 Bacte abbe ident ified in Blood by Cultu re interpretati on and review of laboratory results Abnorm al Not Available Not Available 12:16:17 10/04/19 25 10/03/2024 CBC panel - Blood by Autom ated count leukocytes [#/volume] in blood by automated count 15.4 text: 4.0 - 10.7 x10e9/ L high Not Available Not Available 10/28/2024 12:16:17 10/04/19 25 10/03/2024 CBC panel - Blood by Autom ated count erythrocytes [#/volume] in blood by automated count 3.66 text: 3.90 - 5.20 x10e12 /L low Not Available Not Available 10/28/2024 12:16:17 10/04/19 25 10/03/2024 CBC panel - Blood by Autom ated count hemoglobin [mass/volume ] in blood 11.2 g/dL low: 11.9g/ dLhigh : 15.8g/ dL low Not Available Not Available 10/28/2024 12:16:17 10/04/19 25 10/03/2024 CBC panel - Blood by Autom ated count hematocrit [volume fraction] of blood by automated count 32.8 % low: 34.8%h igh: 46.1% low Not Available Not Available 10/28/2024 12:16:17 10/04/19 25 10/03/2024 CBC panel - Blood by Autom ated count MCV [entitic mean volume] in red blood cells by automated count 89.6 fL low: 80fLhi gh: 98fL Not Available Not Available 10/28/2024 12:16:17 10/04/19 25 10/03/2024 CBC panel - Blood by Autom ated count MCH [entitic mass] by automated count 30.6 pg low: 26.7pg high: 33.6pg Not Available Not Available 10/28/2024 12:16:17 10/04/19 25 10/03/2024 CBC panel - Blood by Autom ated count MCHC [entitic mass/volume] in red blood cells by automated count 34.1 g/dL low: 31.7g/ dLhigh : 36.3g/ dL Not Available Not Available 10/28/2024 12:16:17 10/04/19 25 10/03/2024 CBC panel - Blood by Autom ated count erythrocyte [distwidth] in red blood cells by automated count 13.8 % low: 11.3%h igh: 14.8% Not Available Not Available 10/28/2024 12:16:17 10/04/19 25 10/03/2024 CBC panel - Blood by Autom ated count platelets [#/volume] in blood by automated count 244 text: 150 - 420 x10e9/ L Not Available Not Available 10/28/2024 12:16:17 10/04/19 25 10/03/2024 CBC panel - Blood by Autom ated count platelet [entitic mean volume] in blood by automated count 10.1 fL low: 7.8fLh igh: 11.4fL Not Available Not Available 10/28/2024 12:16:17 10/04/19 25 10/03/2024 CBC panel - Blood by Autom ated count interpretati on and review of laboratory results Abnorm al Not Available Not Available 12:16:17 10/04/19 25 10/03/2024 Gas and Carbo n monox ronald panel - Venou s blood pH of venous blood 7.34 pH low: 7.32pH high: 7.42pH Not Available Not Available 10/28/2024 12:15:55 10/04/19 25 10/03/2024 Gas and Carbo n monox ronald panel - Venou s blood pO2 venous 37 text: 35 - 40 mmHg Not Available Not Available 10/28/2024 12:15:55 10/04/19 25 10/03/2024 Gas and Carbo n monox ronald panel - Venou s blood pCO2 venous 45 text: 40 - 50 mmHg Not Available Not Available 10/28/2024 12:15:55 10/04/19 25 10/03/2024 Gas and Carbo n monox ronald panel - Venou s blood bicarbonate [moles/volum e] in venous blood 24.3 mmol/ L low: 20mmol /Lhigh : 30mmol /L Not Available Not Available 10/28/2024 12:15:55 10/04/19 25 10/03/2024 Gas and Carbo n monox ronald panel - Venou s blood base excess venous -1.6 mmol/ L low: -2mmol /Lhigh : 2mmol/ L Not Available Not Available 10/28/2024 12:15:55 10/04/19 25 10/03/2024 Gas and Carbo n monox ronald panel - Venou s blood oxyhemoglobi n venous 60.9 % Not Available Not Available 12:15:55 10/04/19 25 10/03/2024 Gas and Carbo n monox ronald panel - Venou s blood deoxyhemoglo bin (hhb) venous % 35.8 % Not Available Not Available 12:15:55 10/04/19 25 10/03/2024 Gas and Carbo n monox ronald panel - Venou s blood methemoglobi n/hemoglobin .total in blood 1.5 % low: 0%high : 2% Not Available Not Available 10/28/2024 12:15:55 10/04/1910/03/2024 Gas and Carbo n monox ronald panel - Venou s blood carboxyhemog lobin/hemogl obin.total in blood 1.8 % low: 0%high : 2% Not Available Not Available 10/28/2024 12:15:55 10/04/1910/03/2024 Gas and Carbo n monox ronald panel - Venou s blood oxygen content in venous blood 9.9 mL/dL text: interp ret within clinic al contex t Not Available Not Available 10/28/2024 12:15:55 10/04/1910/03/2024 Gas and Carbo n monox ronald panel - Venou s blood hemoglobin [mass/volume ] in blood by oximetry 11.6 g/dL low: 12g/dL high: 15.6g/ dL low Not Available Not Available 10/28/2024 12:15:55 10/04/1910/03/2024 Gas and Carbo n monox ronald panel - Venou s blood oxygen [partial pressure] saturation adjusted to 0.5 in venous blood 63 % low: 70% low Not Available Not Available 10/28/2024 12:15:55 10/04/1910/03/2024 Gas and Carbo n monox ronald panel - Venou s blood fi O2 mixed venous 21 % Not Available Not Available 10/02 12:15:55 10/04/1910/03/2024 Gas and Carbo n monox ronald panel - Venou s blood Unknown Analyte Carbox yhemog lobin Normal Concen tratio n: Non-sm okers: 0-2%; Smoker s: 0-9%; Toxic: >20% Not Available Not Available 12:15:55 10/04/1910/03/2024 Gas and Carbo n monox ronald panel - Venou s blood interpretati on and review of laboratory results Abnorm al Not Available Not Available 12:15:55 10/04/1910/03/2024 Blood type and Indir ect antib harris scree n panel - Blood blood group antibody screen [presence] in serum or plasma NEG Not Available Not Available 10/02 12:15:54 10/04/19 25 10/03/2024 Blood type and Indir ect antib harris scree n panel - Blood ABO and Rh group [type] in blood A POS Not Available Not Available 12:15:54 10/04/19 25 10/03/2024 Renal funct ion 1999 panel - Serum or Plasm a urea nitrogen [mass/volume ] in serum or plasma 29 mg/dL low: 7mg/dL high: 26mg/d L high Not Available Not Available 10/28/2024 12:15:54 10/04/19 25 10/03/2024 Renal funct ion 1999 panel - Serum or Plasm a creatinine [mass/volume ] in serum or plasma 1.69 mg/dL low: 0.56mg /dLhig h: 0.96mg /dL high Not Available Not Available 10/28/2024 12:15:54 10/04/19 25 10/03/2024 Renal funct ion 1999 panel - Serum or Plasm a sodium [moles/volum e] in serum or plasma 130 mmol/ L low: 136mmo l/Lhig h: 145mmo l/L low Not Available Not Available 10/28/2024 12:15:54 10/04/19 25 10/03/2024 Renal funct ion 1999 panel - Serum or Plasm a potassium [moles/volum e] in serum or plasma 5.1 mmol/ L low: 3.5mmo l/Lhig h: 4.5mmo l/L high Not Available Not Available 10/28/2024 12:15:54 10/04/19 25 10/03/2024 Renal funct ion 1999 panel - Serum or Plasm a chloride [moles/volum e] in serum or plasma 101 mmol/ L low: 98mmol /Lhigh : 107mmo l/L Not Available Not Available 10/28/2024 12:15:54 10/04/19 25 10/03/2024 Renal funct ion 1999 panel - Serum or Plasm a carbon dioxide, total [moles/volum e] in serum or plasma 23 mmol/ L low: 22mmol /Lhigh : 29mmol /L Not Available Not Available 10/28/2024 12:15:54 10/04/19 25 10/03/2024 Renal funct ion 1999 panel - Serum or Plasm a glucose [mass/volume ] in serum or plasma 296 mg/dL low: 70mg/d Lhigh: 99mg/d L high Not Available Not Available 10/28/2024 12:15:54 10/04/19 25 10/03/2024 Renal funct ion 1999 panel - Serum or Plasm a albumin [mass/volume ] in serum or plasma by bromocresol green (bcg) dye binding method 2.8 g/dL low: 3.4g/d Lhigh: 5g/dL low Not Available Not Available 10/28/2024 12:15:54 10/04/19 25 10/03/2024 Renal funct ion 1999 panel - Serum or Plasm a calcium [moles/volum e] in serum or plasma 9 mg/dL low: 8.4mg/ dLhigh : 10.2mg /dL Not Available Not Available 10/28/2024 12:15:54 10/04/19 25 10/03/2024 Renal funct ion 1999 panel - Serum or Plasm a phosphate [mass/volume ] in serum or plasma 2.2 mg/dL low: 2.9mg/ dLhigh : 5.1mg/ dL low Not Available Not Available 10/28/2024 12:15:54 10/04/19 25 10/03/2024 Renal funct ion 1999 panel - Serum or Plasm a anion gap 6 low: 6high: 16 Not Available Not Available 10/28/2024 12:15:54 10/04/19 25 10/03/2024 Renal funct ion 1999 panel - Serum or Plasm a urea nitrogen/cre atinine [mass ratio] in serum or plasma 17 low: 7high: 23 Not Available Not Available 10/28/2024 12:15:54 10/04/19 25 10/03/2024 Renal funct ion 1999 panel - Serum or Plasm a osmolality calculated 287 text: 275 - 295 mOsm/k g Not Available Not Available 10/28/2024 12:15:54 10/04/19 25 10/03/2024 Renal funct ion 1999 panel - Serum or Plasm a glomerular filtration rate [volume rate/area] in serum, plasma or blood by creatinine-b ased formula (CKD-epi 2020)/1.73 sq M 31 text: >=90 mL/min /1.73 m2 low Estim ated Glome rular Filtr ation Rate (eGFR ) calcu lated using the CKD-E PI Creat inine Equat ion (2020 ), per the Natio nal Kidne y Found ation and Ameri can Socie ty of Nephr ology recom menda tions . Not Available Not Available 10/28/2024 12:15:54 10/04/1910/03/2024 Renal funct ion 2000 panel - Serum or Plasm a interpretati on and review of laboratory results Abnorm al Not Available Not Available 12:15:54 10/04/19 25 10/03/2024 Lacta te [Mole s/vol ume] in Serum or Plasm a lactate [moles/volum e] in serum or plasma 2.7 mmol/ L high: 2mmol/ L high Not Available Not Available 10/28/2024 12:15:54 10/04/19 25 10/03/2024 Lacta te [Mole s/vol ume] in Serum or Plasm a interpretati on and review of laboratory results Abnorm al Not Available Not Available 12:15:54 10/04/19 25 10/03/2024 Gluco se [Mass /volu me] in Arter ial blood glucose [mass/volume ] in capillary blood by glucometer 281 mg/dL low: 70mg/d Lhigh: 99mg/d L high Not Available Not Available 10/28/2024 12:26:20 10/04/19 25 10/03/2024 Gluco se [Mass /volu me] in Arter ial blood specimen source identified Arteri al/Cap illary Not Available Not Available 12:26:20 10/04/19 25 10/03/2024 Gluco se [Mass /volu me] in Arter ial blood interpretati on and review of laboratory results Abnorm al Not Available Not Available 12:26:20 10/04/19 25 10/03/2024 Gluco se [Mass /volu me] in Arter ial blood glucose [mass/volume ] in capillary blood by glucometer 281 mg/dL low: 70mg/d Lhigh: 99mg/d L high Not Available Not Available 10/28/2024 12:16:16 10/04/19 25 10/03/2024 Gluco se [Mass /volu me] in Arter ial blood specimen source identified Arteri al/Cap illary Not Available Not Available 12:16:16 10/04/19 25 10/03/2024 Gluco se [Mass /volu me] in Arter ial blood interpretati on and review of laboratory results Abnorm al Not Available Not Available 12:16:16 10/04/19 25 10/03/2024 Gluco se [Mass /volu me] in Arter ial blood glucose [mass/volume ] in capillary blood by glucometer 218 mg/dL low: 70mg/d Lhigh: 99mg/d L high Not Available Not Available 10/28/2024 12:26:20 10/04/19 25 10/03/2024 Gluco se [Mass /volu me] in Arter ial blood specimen source identified Arteri al/Cap illary Not Available Not Available 12:26:20 10/04/19 25 10/03/2024 Gluco se [Mass /volu me] in Arter ial blood interpretati on and review of laboratory results Abnorm al Not Available Not Available 12:26:20 10/04/19 25 10/03/2024 Gluco se [Mass /volu me] in Arter ial blood glucose [mass/volume ] in capillary blood by glucometer 218 mg/dL low: 70mg/d Lhigh: 99mg/d L high Not Available Not Available 10/28/2024 12:16:16 10/04/19 25 10/03/2024 Gluco se [Mass /volu me] in Arter ial blood specimen source identified Arteri al/Cap illary Not Available Not Available 12:16:16 10/04/19 25 10/03/2024 Gluco se [Mass /volu me] in Arter ial blood interpretati on and review of laboratory results Abnorm al Not Available Not Available 12:16:16 10/04/19 25 10/03/2024 Gluco se [Mass /volu me] in Arter ial blood glucose [mass/volume ] in capillary blood by glucometer 202 mg/dL low: 70mg/d Lhigh: 99mg/d L high Not Available Not Available 10/28/2024 12:26:20 10/04/19 25 10/03/2024 Gluco se [Mass /volu me] in Arter ial blood specimen source identified Arteri al/Cap illary Not Available Not Available 12:26:20 10/04/19 25 10/03/2024 Gluco se [Mass /volu me] in Arter ial blood interpretati on and review of laboratory results Abnorm al Not Available Not Available 12:26:20 10/04/19 25 10/03/2024 Gluco se [Mass /volu me] in Arter ial blood glucose [mass/volume ] in capillary blood by glucometer 202 mg/dL low: 70mg/d Lhigh: 99mg/d L high Not Available Not Available 10/28/2024 12:16:16 10/04/19 25 10/03/2024 Gluco se [Mass /volu me] in Arter ial blood specimen source identified Arteri al/Cap illary Not Available Not Available 12:16:16 10/04/19 25 10/03/2024 Gluco se [Mass /volu me] in Arter ial blood interpretati on and review of laboratory results Abnorm al Not Available Not Available 12:16:16 10/04/19 25 10/03/2024 Digox in [Mass /volu me] in Serum or Plasm a digoxin [mass/volume ] in serum or plasma 0.8 NG/mL low: 0.5NG/ mLhigh : 1.2NG/ mL Not Available Not Available 10/28/2024 12:15:53 10/04/19 25 10/03/2024 Digox in [Mass /volu me] in Serum or Plasm a Unknown Analyte Therap eutic refere nce range for heart failur e is 0.5-0. 9 ng/mL. For atrial fibril lation , it is 0.8-1. 2 ng/mL. The manufa cturer of Dig[employer] has stated that no immuno assay techni que is suitab le for quanti tating digoxi n in plasma /serum from patien ts on antibo dy fragme nt therap y. Not Available Not Available 12:15:53 10/04/19 25 10/03/2024 Digox in [Mass /volu me] in Serum or Plasm a interpretati on and review of laboratory results Normal Not Available Not Available 10/02 12:15:53 10/04/19 25 10/03/2024 Gluco se [Mass /volu me] in Arter ial blood glucose [mass/volume ] in capillary blood by glucometer 206 mg/dL low: 70mg/d Lhigh: 99mg/d L high Not Available Not Available 10/28/2024 12:26:20 10/04/19 25 10/03/2024 Gluco se [Mass /volu me] in Arter ial blood specimen source identified Arteri al/Cap illary Not Available Not Available 12:26:20 10/04/19 25 10/03/2024 Gluco se [Mass /volu me] in Arter ial blood interpretati on and review of laboratory results Abnorm al Not Available Not Available 12:26:20 10/04/19 25 10/03/2024 Gluco se [Mass /volu me] in Arter ial blood glucose [mass/volume ] in capillary blood by glucometer 206 mg/dL low: 70mg/d Lhigh: 99mg/d L high Not Available Not Available 10/28/2024 12:16:16 10/04/19 25 10/03/2024 Gluco se [Mass /volu me] in Arter ial blood specimen source identified Arteri al/Cap illary Not Available Not Available 12:16:16 10/04/19 25 10/03/2024 Gluco se [Mass /volu me] in Arter ial blood interpretati on and review of laboratory results Abnorm al Not Available Not Available 12:16:16 10/04/19 25 10/03/2024 Phosp hate [Mass /volu me] in Serum or Plasm a phosphate [mass/volume ] in serum or plasma 3.3 mg/dL low: 2.9mg/ dLhigh : 5.1mg/ dL Not Available Not Available 10/28/2024 12:16:16 10/04/19 25 10/03/2024 Phosp hate [Mass /volu me] in Serum or Plasm a interpretati on and review of laboratory results Normal Not Available Not Available 10/02 12:16:16 10/04/19 25 10/03/2024 Magne sium [Mass /volu me] in Serum or Plasm a magnesium [mass/volume ] in serum or plasma 2 mg/dL low: 1.6mg/ dLhigh : 2.6mg/ dL Not Available Not Available 10/28/2024 12:16:16 10/04/19 25 10/03/2024 Magne sium [Mass /volu me] in Serum or Plasm a interpretati on and review of laboratory results Normal Not Available Not Available 10/02 12:16:16 10/04/19 25 10/03/2024 Basic metab olic 1999 panel - Serum or Plasm a urea nitrogen [mass/volume ] in serum or plasma 29 mg/dL low: 7mg/dL high: 26mg/d L high Not Available Not Available 10/28/2024 12:16:15 10/04/19 25 10/03/2024 Basic metab olic 1999 panel - Serum or Plasm a creatinine [mass/volume ] in serum or plasma 1.65 mg/dL low: 0.56mg /dLhig h: 0.96mg /dL high Not Available Not Available 10/28/2024 12:16:15 10/04/19 25 10/03/2024 Basic metab olic 1999 panel - Serum or Plasm a sodium [moles/volum e] in serum or plasma 133 mmol/ L low: 136mmo l/Lhig h: 145mmo l/L low Not Available Not Available 10/28/2024 12:16:15 10/04/19 25 10/03/2024 Basic metab olic 1999 panel - Serum or Plasm a potassium [moles/volum e] in serum or plasma 5.3 mmol/ L low: 3.5mmo l/Lhig h: 4.5mmo l/L high Not Available Not Available 10/28/2024 12:16:15 10/04/19 25 10/03/2024 Basic metab olic 1999 panel - Serum or Plasm a chloride [moles/volum e] in serum or plasma 103 mmol/ L low: 98mmol /Lhigh : 107mmo l/L Not Available Not Available 10/28/2024 12:16:15 10/04/19 25 10/03/2024 Basic metab olic 1999 panel - Serum or Plasm a carbon dioxide, total [moles/volum e] in serum or plasma 24 mmol/ L low: 22mmol /Lhigh : 29mmol /L Not Available Not Available 10/28/2024 12:16:15 10/04/19 25 10/03/2024 Basic metab olic 1999 panel - Serum or Plasm a glucose [mass/volume ] in serum or plasma 201 mg/dL low: 70mg/d Lhigh: 99mg/d L high Not Available Not Available 10/28/2024 12:16:15 10/04/19 25 10/03/2024 Basic metab olic 1999 panel - Serum or Plasm a calcium [moles/volum e] in serum or plasma 8.9 mg/dL low: 8.4mg/ dLhigh : 10.2mg /dL Not Available Not Available 10/28/2024 12:16:15 10/04/19 25 10/03/2024 Basic metab olic 1999 panel - Serum or Plasm a anion gap 6 low: 6high: 16 Not Available Not Available 10/28/2024 12:16:15 10/04/19 25 10/03/2024 Basic metab olic 1999 panel - Serum or Plasm a urea nitrogen/cre atinine [mass ratio] in serum or plasma 18 low: 7high: 23 Not Available Not Available 10/28/2024 12:16:15 10/04/19 25 10/03/2024 Basic metab olic 1999 panel - Serum or Plasm a osmolality calculated 288 text: 275 - 295 mOsm/k g Not Available Not Available 10/28/2024 12:16:15 10/04/19 25 10/03/2024 Basic metab olic 2000 panel - Serum or Plasm a glomerular filtration rate [volume rate/area] in serum, plasma or blood by creatinine-b ased formula (CKD-epi 2021)/1.73 sq M 32 text: >=90 mL/min /1.73 m2 low Estim ated Glome rular Filtr ation Rate (eGFR ) calcu lated using the CKD-E PI Creat inine Equat ion (2020 ), per the Natio nal Kidne y Found ation and Ameri can Socie ty of Nephr ology recom menda tions . Not Available Not Available 10/28/2024 12:16:15 10/04/19 25 10/03/2024 Basic metab olic 2000 panel - Serum or Plasm a interpretati on and review of laboratory results Abnorm al Not Available Not Available 12:16:15 10/04/19 25 10/03/2024 Gluco se [Mass /volu me] in Arter ial blood glucose [mass/volume ] in capillary blood by glucometer 153 mg/dL low: 70mg/d Lhigh: 99mg/d L high Not Available Not Available 10/28/2024 12:26:20 10/04/19 25 10/03/2024 Gluco se [Mass /volu me] in Arter ial blood specimen source identified Arteri al/Cap illary Not Available Not Available 12:26:20 10/04/19 25 10/03/2024 Gluco se [Mass /volu me] in Arter ial blood interpretati on and review of laboratory results Abnorm al Not Available Not Available 12:26:20 10/04/19 25 10/03/2024 Gluco se [Mass /volu me] in Arter ial blood glucose [mass/volume ] in capillary blood by glucometer 153 mg/dL low: 70mg/d Lhigh: 99mg/d L high Not Available Not Available 10/28/2024 12:16:15 10/04/19 25 10/03/2024 Gluco se [Mass /volu me] in Arter ial blood specimen source identified Arteri al/Cap illary Not Available Not Available 12:16:15 10/04/19 25 10/03/2024 Gluco se [Mass /volu me] in Arter ial blood interpretati on and review of laboratory results Abnorm al Not Available Not Available 12:16:15 10/05/19 25 10/04/2024 Gluco se [Mass /volu me] in Arter ial blood glucose [mass/volume ] in capillary blood by glucometer 244 mg/dL low: 70mg/d Lhigh: 99mg/d L high Not Available Not Available 10/28/2024 12:26:20 10/05/19 25 10/04/2024 Gluco se [Mass /volu me] in Arter ial blood specimen source identified Arteri al/Cap illary Not Available Not Available 12:26:20 10/05/19 25 10/04/2024 Gluco se [Mass /volu me] in Arter ial blood interpretati on and review of laboratory results Abnorm al Not Available Not Available 12:26:20 10/05/19 25 10/04/2024 Gluco se [Mass /volu me] in Arter ial blood glucose [mass/volume ] in capillary blood by glucometer 244 mg/dL low: 70mg/d Lhigh: 99mg/d L high Not Available Not Available 10/28/2024 12:16:17 10/05/19 25 10/04/2024 Gluco se [Mass /volu me] in Arter ial blood specimen source identified Arteri al/Cap illary Not Available Not Available 12:16:17 10/05/19 25 10/04/2024 Gluco se [Mass /volu me] in Arter ial blood interpretati on and review of laboratory results Abnorm al Not Available Not Available 12:16:17 10/05/19 25 10/04/2024 Gluco se [Mass /volu me] in Arter ial blood glucose [mass/volume ] in capillary blood by glucometer 160 mg/dL low: 70mg/d Lhigh: 99mg/d L high Not Available Not Available 10/28/2024 12:26:20 10/05/19 25 10/04/2024 Gluco se [Mass /volu me] in Arter ial blood specimen source identified Arteri al/Cap illary Not Available Not Available 12:26:20 10/05/19 25 10/04/2024 Gluco se [Mass /volu me] in Arter ial blood interpretati on and review of laboratory results Abnorm al Not Available Not Available 12:26:20 10/05/19 25 10/04/2024 Gluco se [Mass /volu me] in Arter ial blood glucose [mass/volume ] in capillary blood by glucometer 160 mg/dL low: 70mg/d Lhigh: 99mg/d L high Not Available Not Available 10/28/2024 12:16:17 10/05/19 25 10/04/2024 Gluco se [Mass /volu me] in Arter ial blood specimen source identified Arteri al/Cap illary Not Available Not Available 12:16:17 10/05/19 25 10/04/2024 Gluco se [Mass /volu me] in Arter ial blood interpretati on and review of laboratory results Abnorm al Not Available Not Available 12:16:17 10/05/19 25 10/04/2024 Urina lysis panel - Urine by Autom ated color of urine by auto Yellow text: yellow , straw Not Available Not Available 10/28/2024 12:15:54 10/05/19 25 10/04/2024 Urina lysis panel - Urine by Autom ated clarity in urine by refractometr y automated Clear text: clear Not Available Not Available 10/28/2024 12:15:54 10/05/19 25 10/04/2024 Urina lysis panel - Urine by Autom ated glucose [presence] in urine by test strip 3+ text: normal abnormal Not Available Not Available 10/28/2024 12:15:54 10/05/19 25 10/04/2024 Urina lysis panel - Urine by Autom ated bilirubin.to janessa [presence] in urine by test strip Negati ve text: negati ve Not Available Not Available 10/28/2024 12:15:54 10/05/19 25 10/04/2024 Urina lysis panel - Urine by Autom ated ketones [presence] in urine by automated test strip Trace text: negati ve abnormal Not Available Not Available 10/28/2024 12:15:54 10/05/19 25 10/04/2024 Urina lysis panel - Urine by Autom ated specific gravity of urine by test strip 1.02 low: 1.005h igh: 1.03 Not Available Not Available 10/28/2024 12:15:54 10/05/19 25 10/04/2024 Urina lysis panel - Urine by Autom ated hemoglobin [presence] in urine by test strip Negati ve text: negati ve Not Available Not Available 10/28/2024 12:15:54 10/05/19 25 10/04/2024 Urina lysis panel - Urine by Autom ated pH of urine by test strip 5 low: 5high: 8 Not Available Not Available 10/28/2024 12:15:54 10/05/19 25 10/04/2024 Urina lysis panel - Urine by Autom ated protein [presence] in urine by test strip Trace text: negati ve abnormal Not Available Not Available 10/28/2024 12:15:54 10/05/19 25 10/04/2024 Urina lysis panel - Urine by Autom ated urobilinogen [mass/volume ] in urine by automated test strip Normal text: normal mg/dL Not Available Not Available 10/28/2024 12:15:54 10/05/19 25 10/04/2024 Urina lysis panel - Urine by Autom ated nitrite [presence] in urine by test strip Negati ve text: negati ve Not Available Not Available 10/28/2024 12:15:54 10/05/19 25 10/04/2024 Urina lysis panel - Urine by Autom ated leukocyte esterase [presence] in urine by test strip Negati ve text: negati ve Not Available Not Available 10/28/2024 12:15:54 10/05/19 25 10/04/2024 Urina lysis panel - Urine by Autom ated microscopic method - urine Urine micros copy not indica isac Not Available Not Available 12:15:54 10/05/19 25 10/04/2024 Urina lysis panel - Urine by Autom ated interpretati on and review of laboratory results Abnorm al Not Available Not Available 12:15:54 10/05/19 25 10/04/2024 Gluco se [Mass /volu me] in Arter ial blood glucose [mass/volume ] in capillary blood by glucometer 322 mg/dL low: 70mg/d Lhigh: 99mg/d L high Not Available Not Available 10/28/2024 12:26:20 10/05/19 25 10/04/2024 Gluco se [Mass /volu me] in Arter ial blood specimen source identified Arteri al/Cap illary Not Available Not Available 12:26:20 10/05/19 25 10/04/2024 Gluco se [Mass /volu me] in Arter ial blood interpretati on and review of laboratory results Abnorm al Not Available Not Available 12:26:20 10/05/19 25 10/04/2024 Gluco se [Mass /volu me] in Arter ial blood glucose [mass/volume ] in capillary blood by glucometer 322 mg/dL low: 70mg/d Lhigh: 99mg/d L high Not Available Not Available 10/28/2024 12:16:17 10/05/19 25 10/04/2024 Gluco se [Mass /volu me] in Arter ial blood specimen source identified Arteri al/Cap illary Not Available Not Available 12:16:17 10/05/19 25 10/04/2024 Gluco se [Mass /volu me] in Arter ial blood interpretati on and review of laboratory results Abnorm al Not Available Not Available 12:16:17 10/05/19 25 10/04/2024 Gluco se [Mass /volu me] in Arter ial blood glucose [mass/volume ] in capillary blood by glucometer 310 mg/dL low: 70mg/d Lhigh: 99mg/d L high Not Available Not Available 10/28/2024 12:16:17 10/05/19 25 10/04/2024 Gluco se [Mass /volu me] in Arter ial blood specimen source identified Arteri al/Cap illary Not Available Not Available 12:16:17 10/05/19 25 10/04/2024 Gluco se [Mass /volu me] in Arter ial blood interpretati on and review of laboratory results Abnorm al Not Available Not Available 12:16:17 10/05/19 25 10/09/2024 Bacte abbe ident ified in Blood by Cultu re microorganis m identified in specimen by culture No growth day 5 Not Available Not Available 12:15:54 10/05/19 25 10/09/2024 Bacte abbe ident ified in Blood by Cultu re interpretati on and review of laboratory results Normal Not Available Not Available 10/02 12:15:54 10/05/19 25 10/04/2024 Gluco se [Mass /volu me] in Arter ial blood glucose [mass/volume ] in capillary blood by glucometer 315 mg/dL low: 70mg/d Lhigh: 99mg/d L high Not Available Not Available 10/28/2024 12:26:20 10/05/19 25 10/04/2024 Gluco se [Mass /volu me] in Arter ial blood specimen source identified Arteri al/Cap illary Not Available Not Available 12:26:20 10/05/19 25 10/04/2024 Gluco se [Mass /volu me] in Arter ial blood interpretati on and review of laboratory results Abnorm al Not Available Not Available 12:26:20 10/05/19 25 10/04/2024 Gluco se [Mass /volu me] in Arter ial blood glucose [mass/volume ] in capillary blood by glucometer 315 mg/dL low: 70mg/d Lhigh: 99mg/d L high Not Available Not Available 10/28/2024 12:16:17 10/05/19 25 10/04/2024 Gluco se [Mass /volu me] in Arter ial blood specimen source identified Arteri al/Cap illary Not Available Not Available 12:16:17 10/05/19 25 10/04/2024 Gluco se [Mass /volu me] in Arter ial blood interpretati on and review of laboratory results Abnorm al Not Available Not Available 12:16:17 10/06/19 25 10/05/2024 Gluco se [Mass /volu me] in Arter ial blood glucose [mass/volume ] in capillary blood by glucometer 323 mg/dL low: 70mg/d Lhigh: 99mg/d L high Not Available Not Available 10/28/2024 12:26:19 10/06/19 25 10/05/2024 Gluco se [Mass /volu me] in Arter ial blood specimen source identified Arteri al/Cap illary Not Available Not Available 12:26:19 10/06/19 25 10/05/2024 Gluco se [Mass /volu me] in Arter ial blood interpretati on and review of laboratory results Abnorm al Not Available Not Available 12:26:19 10/06/19 25 10/05/2024 Gluco se [Mass /volu me] in Arter ial blood glucose [mass/volume ] in capillary blood by glucometer 323 mg/dL low: 70mg/d Lhigh: 99mg/d L high Not Available Not Available 10/28/2024 12:16:18 10/06/19 25 10/05/2024 Gluco se [Mass /volu me] in Arter ial blood specimen source identified Arteri al/Cap illary Not Available Not Available 12:16:18 10/06/19 25 10/05/2024 Gluco se [Mass /volu me] in Arter ial blood interpretati on and review of laboratory results Abnorm al Not Available Not Available 12:16:18 10/06/19 25 10/05/2024 Gluco se [Mass /volu me] in Arter ial blood glucose [mass/volume ] in capillary blood by glucometer 266 mg/dL low: 70mg/d Lhigh: 99mg/d L high Not Available Not Available 10/28/2024 12:16:18 10/06/19 25 10/05/2024 Gluco se [Mass /volu me] in Arter ial blood specimen source identified Arteri al/Cap illary Not Available Not Available 12:16:18 10/06/19 25 10/05/2024 Gluco se [Mass /volu me] in Arter ial blood interpretati on and review of laboratory results Abnorm al Not Available Not Available 12:16:18 10/06/19 25 10/05/2024 Gluco se [Mass /volu me] in Arter ial blood glucose [mass/volume ] in capillary blood by glucometer 156 mg/dL low: 70mg/d Lhigh: 99mg/d L high Not Available Not Available 10/28/2024 12:16:17 10/06/19 25 10/05/2024 Gluco se [Mass /volu me] in Arter ial blood specimen source identified Arteri al/Cap illary Not Available Not Available 12:16:17 10/06/19 25 10/05/2024 Gluco se [Mass /volu me] in Arter ial blood interpretati on and review of laboratory results Abnorm al Not Available Not Available 12:16:17 10/06/19 25 10/05/2024 Phosp hate [Mass /volu me] in Serum or Plasm a phosphate [mass/volume ] in serum or plasma 3.3 mg/dL low: 2.9mg/ dLhigh : 5.1mg/ dL Not Available Not Available 10/28/2024 12:16:17 10/06/19 25 10/05/2024 Phosp hate [Mass /volu me] in Serum or Plasm a interpretati on and review of laboratory results Normal Not Available Not Available 10/02 12:16:17 10/06/19 25 10/05/2024 Magne sium [Mass /volu me] in Serum or Plasm a magnesium [mass/volume ] in serum or plasma 2.2 mg/dL low: 1.6mg/ dLhigh : 2.6mg/ dL Not Available Not Available 10/28/2024 12:16:17 10/06/19 25 10/05/2024 Magne sium [Mass /volu me] in Serum or Plasm a interpretati on and review of laboratory results Normal Not Available Not Available 10/02 12:16:17 10/06/19 25 10/05/2024 Basic metab olic 2000 panel - Serum or Plasm a urea nitrogen [mass/volume ] in serum or plasma 33 mg/dL low: 7mg/dL high: 26mg/d L high Not Available Not Available 10/28/2024 12:16:17 10/06/19 25 10/05/2024 Basic metab olic 2000 panel - Serum or Plasm a creatinine [mass/volume ] in serum or plasma 1.53 mg/dL low: 0.56mg /dLhig h: 0.96mg /dL high Not Available Not Available 10/28/2024 12:16:17 10/06/19 25 10/05/2024 [facility] - Serum or Plasm a sodium [moles/volum e] in serum or plasma 133 mmol/ L low: 136mmo l/Lhig h: 145mmo l/L low Not Available Not Available 10/28/2024 12:16:17 10/06/19 25 10/05/2024 Basic metab olic 1999 panel - Serum or Plasm a potassium [moles/volum e] in serum or plasma 4.2 mmol/ L low: 3.5mmo l/Lhig h: 4.5mmo l/L Not Available Not Available 10/28/2024 12:16:17 10/06/19 25 10/05/2024 [facility] - Serum or Plasm a chloride [moles/volum e] in serum or plasma 107 mmol/ L low: 98mmol /Lhigh : 107mmo l/L Not Available Not Available 10/28/2024 12:16:17 10/06/19 25 10/05/2024 [facility] 1999 panel - Serum or Plasm a carbon dioxide, total [moles/volum e] in serum or plasma 18 mmol/ L low: 22mmol /Lhigh : 29mmol /L low Not Available Not Available 10/28/2024 12:16:17 10/06/19 25 10/05/2024 [facility] 1999 panel - Serum or Plasm a glucose [mass/volume ] in serum or plasma 150 mg/dL low: 70mg/d Lhigh: 99mg/d L high Not Available Not Available 10/28/2024 12:16:17 10/06/19 25 10/05/2024 [facility] 1999 panel - Serum or Plasm a calcium [moles/volum e] in serum or plasma 8.4 mg/dL low: 8.4mg/ dLhigh : 10.2mg /dL Not Available Not Available 10/28/2024 12:16:17 10/06/19 25 10/05/2024 [facility] 1999 panel - Serum or Plasm a anion gap 8 low: 6high: 16 Not Available Not Available 10/28/2024 12:16:17 10/06/19 25 10/05/2024 Basic metab olic 1999 panel - Serum or Plasm a urea nitrogen/cre atinine [mass ratio] in serum or plasma 22 low: 7high: 23 Not Available Not Available 10/28/2024 12:16:17 10/06/19 25 10/05/2024 Basic metab olic 2000 panel - Serum or Plasm a osmolality calculated 286 text: 275 - 295 mOsm/k g Not Available Not Available 10/28/2024 12:16:17 10/06/19 25 10/05/2024 Basic metab olic 2000 panel - Serum or Plasm a glomerular filtration rate [volume rate/area] in serum, plasma or blood by creatinine-b ased formula (CKD-epi 2020)/1.73 sq M 35 text: >=90 mL/min /1.73 m2 low Estim ated Glome rular Filtr ation Rate (eGFR ) calcu lated using the CKD-E PI Creat inine Equat ion (2020 ), per the [facility] and Ameri can Socie ty of Nephr ology recom menda tions . Not Available Not Available 10/28/2024 12:16:17 10/06/19 25 10/05/2024 Basic metab olic 1999 panel - Serum or Plasm a interpretati on and review of laboratory results Abnorm al Not Available Not Available 12:16:17 10/06/19 25 10/05/2024 Vanco mycin [Mass /volu me] in Serum or Plasm a vancomycin [mass/volume ] in serum or plasma 12.8 ug/mL text: therap eutic ranges not establ ished for random specim ens Not Available Not Available 10/28/2024 12:15:53 10/06/19 25 10/05/2024 Vanco mycin [Mass /volu me] in Serum or Plasm a Unknown Analyte See instit ution protoc ol. Not Available Not Available 12:15:53 10/06/19 25 10/05/2024 Vanco mycin [Mass /volu me] in Serum or Plasm a interpretati on and review of laboratory results Normal Not Available Not Available 10/02 12:15:53 10/06/19 25 10/05/2024 Gluco se [Mass /volu me] in Arter ial blood glucose [mass/volume ] in capillary blood by glucometer 146 mg/dL low: 70mg/d Lhigh: 99mg/d L high Not Available Not Available 10/28/2024 12:26:19 10/06/19 25 10/05/2024 Gluco se [Mass /volu me] in Arter ial blood specimen source identified Arteri al/Cap illary Not Available Not Available 12:26:19 10/06/19 25 10/05/2024 Gluco se [Mass /volu me] in Arter ial blood interpretati on and review of laboratory results Abnorm al Not Available Not Available 12:26:19 10/06/19 25 10/05/2024 Gluco se [Mass /volu me] in Arter ial blood glucose [mass/volume ] in capillary blood by glucometer 146 mg/dL low: 70mg/d Lhigh: 99mg/d L high Not Available Not Available 10/28/2024 12:16:17 10/06/19 25 10/05/2024 Gluco se [Mass /volu me] in Arter ial blood specimen source identified Arteri al/Cap illary Not Available Not Available 12:16:17 10/06/19 25 10/05/2024 Gluco se [Mass /volu me] in Arter ial blood interpretati on and review of laboratory results Abnorm al Not Available Not Available 12:16:17 10/07/19 25 10/06/2024 Gluco se [Mass /volu me] in Arter ial blood glucose [mass/volume ] in capillary blood by glucometer 153 mg/dL low: 70mg/d Lhigh: 99mg/d L high Not Available Not Available 10/28/2024 12:26:19 10/07/19 25 10/06/2024 Gluco se [Mass /volu me] in Arter ial blood specimen source identified Arteri al/Cap illary Not Available Not Available 12:26:19 10/07/19 25 10/06/2024 Gluco se [Mass /volu me] in Arter ial blood interpretati on and review of laboratory results Abnorm al Not Available Not Available 12:26:19 10/07/19 25 10/06/2024 Gluco se [Mass /volu me] in Arter ial blood glucose [mass/volume ] in capillary blood by glucometer 153 mg/dL low: 70mg/d Lhigh: 99mg/d L high Not Available Not Available 10/28/2024 12:16:18 10/07/19 25 10/06/2024 Gluco se [Mass /volu me] in Arter ial blood specimen source identified Arteri al/Cap illary Not Available Not Available 12:16:18 10/07/19 25 10/06/2024 Gluco se [Mass /volu me] in Arter ial blood interpretati on and review of laboratory results Abnorm al Not Available Not Available 12:16:18 10/07/19 25 10/06/2024 Gluco se [Mass /volu me] in Arter ial blood glucose [mass/volume ] in capillary blood by glucometer 235 mg/dL low: 70mg/d Lhigh: 99mg/d L high Not Available Not Available 10/28/2024 12:26:19 10/07/19 25 10/06/2024 Gluco se [Mass /volu me] in Arter ial blood specimen source identified Arteri al/Cap illary Not Available Not Available 12:26:19 10/07/19 25 10/06/2024 Gluco se [Mass /volu me] in Arter ial blood interpretati on and review of laboratory results Abnorm al Not Available Not Available 12:26:19 10/07/19 25 10/06/2024 Gluco se [Mass /volu me] in Arter ial blood glucose [mass/volume ] in capillary blood by glucometer 235 mg/dL low: 70mg/d Lhigh: 99mg/d L high Not Available Not Available 10/28/2024 12:16:18 10/07/19 25 10/06/2024 Gluco se [Mass /volu me] in Arter ial blood specimen source identified Arteri al/Cap illary Not Available Not Available 12:16:18 10/07/19 25 10/06/2024 Gluco se [Mass /volu me] in Arter ial blood interpretati on and review of laboratory results Abnorm al Not Available Not Available 12:16:18 10/07/19 25 10/06/2024 Gluco se [Mass /volu me] in Arter ial blood glucose [mass/volume ] in capillary blood by glucometer 394 mg/dL low: 70mg/d Lhigh: 99mg/d L high Not Available Not Available 10/28/2024 12:26:19 10/07/19 25 10/06/2024 Gluco se [Mass /volu me] in Arter ial blood specimen source identified Arteri al/Cap illary Not Available Not Available 12:26:19 10/07/19 25 10/06/2024 Gluco se [Mass /volu me] in Arter ial blood interpretati on and review of laboratory results Abnorm al Not Available Not Available 12:26:19 10/07/19 25 10/06/2024 Gluco se [Mass /volu me] in Arter ial blood glucose [mass/volume ] in capillary blood by glucometer 394 mg/dL low: 70mg/d Lhigh: 99mg/d L high Not Available Not Available 10/28/2024 12:16:18 10/07/19 25 10/06/2024 Gluco se [Mass /volu me] in Arter ial blood specimen source identified Arteri al/Cap illary Not Available Not Available 12:16:18 10/07/19 25 10/06/2024 Gluco se [Mass /volu me] in Arter ial blood interpretati on and review of laboratory results Abnorm al Not Available Not Available 12:16:18 10/07/19 25 10/06/2024 Gluco se [Mass /volu me] in Arter ial blood glucose [mass/volume ] in capillary blood by glucometer 203 mg/dL low: 70mg/d Lhigh: 99mg/d L high Not Available Not Available 10/28/2024 12:16:18 10/07/19 25 10/06/2024 Gluco se [Mass /volu me] in Arter ial blood specimen source identified Arteri al/Cap illary Not Available Not Available 12:16:18 10/07/19 25 10/06/2024 Gluco se [Mass /volu me] in Arter ial blood interpretati on and review of laboratory results Abnorm al Not Available Not Available 12:16:18 10/08/19 25 10/07/2024 Gluco se [Mass /volu me] in Arter ial blood glucose [mass/volume ] in capillary blood by glucometer 330 mg/dL low: 70mg/d Lhigh: 99mg/d L high Not Available Not Available 10/28/2024 12:26:19 10/08/19 25 10/07/2024 Gluco se [Mass /volu me] in Arter ial blood specimen source identified Arteri al/Cap illary Not Available Not Available 12:26:19 10/08/19 25 10/07/2024 Gluco se [Mass /volu me] in Arter ial blood interpretati on and review of laboratory results Abnorm al Not Available Not Available 12:26:19 10/08/19 25 10/07/2024 Gluco se [Mass /volu me] in Arter ial blood glucose [mass/volume ] in capillary blood by glucometer 330 mg/dL low: 70mg/d Lhigh: 99mg/d L high Not Available Not Available 10/28/2024 12:16:19 10/08/19 25 10/07/2024 Gluco se [Mass /volu me] in Arter ial blood specimen source identified Arteri al/Cap illary Not Available Not Available 12:16:19 10/08/19 25 10/07/2024 Gluco se [Mass /volu me] in Arter ial blood interpretati on and review of laboratory results Abnorm al Not Available Not Available 12:16:19 10/08/19 25 10/07/2024 Gluco se [Mass /volu me] in Arter ial blood glucose [mass/volume ] in capillary blood by glucometer 254 mg/dL low: 70mg/d Lhigh: 99mg/d L high Not Available Not Available 10/28/2024 12:26:19 10/08/19 25 10/07/2024 Gluco se [Mass /volu me] in Arter ial blood specimen source identified Arteri al/Cap illary Not Available Not Available 12:26:19 10/08/19 25 10/07/2024 Gluco se [Mass /volu me] in Arter ial blood interpretati on and review of laboratory results Abnorm al Not Available Not Available 12:26:19 10/08/19 25 10/07/2024 Gluco se [Mass /volu me] in Arter ial blood glucose [mass/volume ] in capillary blood by glucometer 254 mg/dL low: 70mg/d Lhigh: 99mg/d L high Not Available Not Available 10/28/2024 12:16:19 10/08/19 25 10/07/2024 Gluco se [Mass /volu me] in Arter ial blood specimen source identified Arteri al/Cap illary Not Available Not Available 12:16:19 10/08/19 25 10/07/2024 Gluco se [Mass /volu me] in Arter ial blood interpretati on and review of laboratory results Abnorm al Not Available Not Available 12:16:19 10/08/19 25 10/07/2024 Gluco se [Mass /volu me] in Arter ial blood glucose [mass/volume ] in capillary blood by glucometer 269 mg/dL low: 70mg/d Lhigh: 99mg/d L high Not Available Not Available 10/28/2024 12:26:19 10/08/19 25 10/07/2024 Gluco se [Mass /volu me] in Arter ial blood specimen source identified Arteri al/Cap illary Not Available Not Available 12:26:19 10/08/19 25 10/07/2024 Gluco se [Mass /volu me] in Arter ial blood interpretati on and review of laboratory results Abnorm al Not Available Not Available 12:26:19 10/08/19 25 10/07/2024 Gluco se [Mass /volu me] in Arter ial blood glucose [mass/volume ] in capillary blood by glucometer 269 mg/dL low: 70mg/d Lhigh: 99mg/d L high Not Available Not Available 10/28/2024 12:16:18 10/08/19 25 10/07/2024 Gluco se [Mass /volu me] in Arter ial blood specimen source identified Arteri al/Cap illary Not Available Not Available 12:16:18 10/08/19 25 10/07/2024 Gluco se [Mass /volu me] in Arter ial blood interpretati on and review of laboratory results Abnorm al Not Available Not Available 12:16:18 10/08/19 25 10/07/2024 Gluco se [Mass /volu me] in Arter ial blood glucose [mass/volume ] in capillary blood by glucometer 174 mg/dL low: 70mg/d Lhigh: 99mg/d L high Not Available Not Available 10/28/2024 12:26:19 10/08/19 25 10/07/2024 Gluco se [Mass /volu me] in Arter ial blood specimen source identified Arteri al/Cap illary Not Available Not Available 12:26:19 10/08/19 25 10/07/2024 Gluco se [Mass /volu me] in Arter ial blood interpretati on and review of laboratory results Abnorm al Not Available Not Available 12:26:19 10/08/19 25 10/07/2024 Gluco se [Mass /volu me] in Arter ial blood glucose [mass/volume ] in capillary blood by glucometer 174 mg/dL low: 70mg/d Lhigh: 99mg/d L high Not Available Not Available 10/28/2024 12:16:18 10/08/19 25 10/07/2024 Gluco se [Mass /volu me] in Arter ial blood specimen source identified Arteri al/Cap illary Not Available Not Available 12:16:18 10/08/19 25 10/07/2024 Gluco se [Mass /volu me] in Arter ial blood interpretati on and review of laboratory results Abnorm al Not Available Not Available 12:16:18 10/08/19 25 10/07/2024 CBC panel - Blood by Autom ated count leukocytes [#/volume] in blood by automated count 6.9 text: 4.0 - 10.7 x10e9/ L Not Available Not Available 10/28/2024 12:16:18 10/08/19 25 10/07/2024 CBC panel - Blood by Autom ated count erythrocytes [#/volume] in blood by automated count 3.56 text: 3.90 - 5.20 x10e12 /L low Not Available Not Available 10/28/2024 12:16:18 10/08/19 25 10/07/2024 CBC panel - Blood by Autom ated count hemoglobin [mass/volume ] in blood 10.6 g/dL low: 11.9g/ dLhigh : 15.8g/ dL low Not Available Not Available 10/28/2024 12:16:18 10/08/19 25 10/07/2024 CBC panel - Blood by Autom ated count hematocrit [volume fraction] of blood by automated count 31.6 % low: 34.8%h igh: 46.1% low Not Available Not Available 10/28/2024 12:16:18 10/08/19 25 10/07/2024 CBC panel - Blood by Autom ated count MCV [entitic mean volume] in red blood cells by automated count 88.8 fL low: 80fLhi gh: 98fL Not Available Not Available 10/28/2024 12:16:18 10/08/19 25 10/07/2024 CBC panel - Blood by Autom ated count MCH [entitic mass] by automated count 29.8 pg low: 26.7pg high: 33.6pg Not Available Not Available 10/28/2024 12:16:18 10/08/19 25 10/07/2024 CBC panel - Blood by Autom ated count MCHC [entitic mass/volume] in red blood cells by automated count 33.5 g/dL low: 31.7g/ dLhigh : 36.3g/ dL Not Available Not Available 10/28/2024 12:16:18 10/08/19 25 10/07/2024 CBC panel - Blood by Autom ated count erythrocyte [distwidth] in red blood cells by automated count 13.7 % low: 11.3%h igh: 14.8% Not Available Not Available 10/28/2024 12:16:18 10/08/19 25 10/07/2024 CBC panel - Blood by Autom ated count platelets [#/volume] in blood by automated count 340 text: 150 - 420 x10e9/ L Not Available Not Available 10/28/2024 12:16:18 10/08/19 25 10/07/2024 CBC panel - Blood by Autom ated count platelet [entitic mean volume] in blood by automated count 9.7 fL low: 7.8fLh igh: 11.4fL Not Available Not Available 10/28/2024 12:16:18 10/08/19 25 10/07/2024 CBC panel - Blood by Autom ated count interpretati on and review of laboratory results Abnorm al Not Available Not Available 12:16:18 10/08/19 25 10/07/2024 Phosp hate [Mass /volu me] in Serum or Plasm a phosphate [mass/volume ] in serum or plasma 3 mg/dL low: 2.9mg/ dLhigh : 5.1mg/ dL Not Available Not Available 10/28/2024 12:16:18 10/08/19 25 10/07/2024 Phosp hate [Mass /volu me] in Serum or Plasm a interpretati on and review of laboratory results Normal Not Available Not Available 10/02 12:16:18 10/08/19 25 10/07/2024 Magne sium [Mass /volu me] in Serum or Plasm a magnesium [mass/volume ] in serum or plasma 2.2 mg/dL low: 1.6mg/ dLhigh : 2.6mg/ dL Not Available Not Available 10/28/2024 12:16:18 10/08/19 25 10/07/2024 Magne sium [Mass /volu me] in Serum or Plasm a interpretati on and review of laboratory results Normal Not Available Not Available 10/02 12:16:18 10/08/19 25 10/07/2024 Basic metab olic 2000 panel - Serum or Plasm a urea nitrogen [mass/volume ] in serum or plasma 25 mg/dL low: 7mg/dL high: 26mg/d L Not Available Not Available 10/28/2024 12:16:18 10/08/19 25 10/07/2024 [facility] 1999 panel - Serum or Plasm a creatinine [mass/volume ] in serum or plasma 1.17 mg/dL low: 0.56mg /dLhig h: 0.96mg /dL high Not Available Not Available 10/28/2024 12:16:18 10/08/19 25 10/07/2024 [facility] 1999 panel - Serum or Plasm a sodium [moles/volum e] in serum or plasma 136 mmol/ L low: 136mmo l/Lhig h: 145mmo l/L Not Available Not Available 10/28/2024 12:16:18 10/08/19 25 10/07/2024 [facility] 1999 panel - Serum or Plasm a potassium [moles/volum e] in serum or plasma 4.6 mmol/ L low: 3.5mmo l/Lhig h: 4.5mmo l/L high Not Available Not Available 10/28/2024 12:16:18 10/08/19 25 10/07/2024 [facility] 1999 panel - Serum or Plasm a chloride [moles/volum e] in serum or plasma 108 mmol/ L low: 98mmol /Lhigh : 107mmo l/L high Not Available Not Available 10/28/2024 12:16:18 10/08/19 25 10/07/2024 [facility] 1999 panel - Serum or Plasm a carbon dioxide, total [moles/volum e] in serum or plasma 24 mmol/ L low: 22mmol /Lhigh : 29mmol /L Not Available Not Available 10/28/2024 12:16:18 10/08/19 25 10/07/2024 [facility] 1999 panel - Serum or Plasm a glucose [mass/volume ] in serum or plasma 178 mg/dL low: 70mg/d Lhigh: 99mg/d L high Not Available Not Available 10/28/2024 12:16:18 10/08/19 25 10/07/2024 [facility] 1999 panel - Serum or Plasm a calcium [moles/volum e] in serum or plasma 8.8 mg/dL low: 8.4mg/ dLhigh : 10.2mg /dL Not Available Not Available 10/28/2024 12:16:18 10/08/19 25 10/07/2024 [facility] 1999 panel - Serum or Plasm a anion gap 4 low: 6high: 16 low Not Available Not Available 10/28/2024 12:16:18 10/08/19 25 10/07/2024 [facility] 2000 panel - Serum or Plasm a urea nitrogen/cre atinine [mass ratio] in serum or plasma 21 low: 7high: 23 Not Available Not Available 10/28/2024 12:16:18 10/08/19 25 10/07/2024 [facility] 1999 panel - Serum or Plasm a osmolality calculated 291 text: 275 - 295 mOsm/k g Not Available Not Available 10/28/2024 12:16:18 10/08/19 25 10/07/2024 [facility] 2000 panel - Serum or Plasm a glomerular filtration rate [volume rate/area] in serum, plasma or blood by creatinine-b ased formula (CKD-epi 2020)/1.73 sq M 49 text: >=90 mL/min /1.73 m2 low Estim ated Glome rular Filtr ation Rate (eGFR ) calcu lated using the CKD-E PI Creat inine Equat ion (2020 ), per the Natio nal [facility] ation and Ameri can Socie ty of Nephr ology recom [facility] biloxia tions . Not Available Not Available 10/28/2024 12:16:18 10/08/19 25 10/07/2024 [facility] 2000 panel - Serum or Plasm a interpretati on and review of laboratory results Abnorm al Not Available Not Available 12:16:18 10/08/19 25 10/07/2024 Gluco se [Mass /volu me] in Arter ial blood glucose [mass/volume ] in capillary blood by glucometer 272 mg/dL low: 70mg/d Lhigh: 99mg/d L high Not Available Not Available 10/28/2024 12:26:19 10/08/19 25 10/07/2024 Gluco se [Mass /volu me] in Arter ial blood specimen source identified Arteri al/Cap illary Not Available Not Available 12:26:19 10/08/19 25 10/07/2024 Gluco se [Mass /volu me] in Arter ial blood interpretati on and review of laboratory results Abnorm al Not Available Not Available 12:26:19 10/08/19 25 10/07/2024 Gluco se [Mass /volu me] in Arter ial blood glucose [mass/volume ] in capillary blood by glucometer 272 mg/dL low: 70mg/d Lhigh: 99mg/d L high Not Available Not Available 10/28/2024 12:16:18 10/08/19 25 10/07/2024 Gluco se [Mass /volu me] in Arter ial blood specimen source identified Arteri al/Cap illary Not Available Not Available 12:16:18 10/08/19 25 10/07/2024 Gluco se [Mass /volu me] in Arter ial blood interpretati on and review of laboratory results Abnorm al Not Available Not Available 12:16:18 10/09/19 25 10/08/2024 Gluco se [Mass /volu me] in Arter ial blood glucose [mass/volume ] in capillary blood by glucometer 358 mg/dL low: 70mg/d Lhigh: 99mg/d L high Not Available Not Available 10/28/2024 12:26:19 10/09/19 25 10/08/2024 Gluco se [Mass /volu me] in Arter ial blood specimen source identified Arteri al/Cap illary Not Available Not Available 12:26:19 10/09/19 25 10/08/2024 Gluco se [Mass /volu me] in Arter ial blood interpretati on and review of laboratory results Abnorm al Not Available Not Available 12:26:19 10/09/19 25 10/08/2024 Gluco se [Mass /volu me] in Arter ial blood glucose [mass/volume ] in capillary blood by glucometer 358 mg/dL low: 70mg/d Lhigh: 99mg/d L high Not Available Not Available 10/28/2024 12:15:54 10/09/19 25 10/08/2024 Gluco se [Mass /volu me] in Arter ial blood specimen source identified Arteri al/Cap illary Not Available Not Available 12:15:54 10/09/19 25 10/08/2024 Gluco se [Mass /volu me] in Arter ial blood interpretati on and review of laboratory results Abnorm al Not Available Not Available 12:15:54 10/09/19 25 10/08/2024 CBC panel - Blood by Autom ated count leukocytes [#/volume] in blood by automated count 6.3 text: 4.0 - 10.7 x10e9/ L Not Available Not Available 10/28/2024 12:15:54 10/09/19 25 10/08/2024 CBC panel - Blood by Autom ated count erythrocytes [#/volume] in blood by automated count 3.43 text: 3.90 - 5.20 x10e12 /L low Not Available Not Available 10/28/2024 12:15:54 10/09/19 25 10/08/2024 CBC panel - Blood by Autom ated count hemoglobin [mass/volume ] in blood 10.2 g/dL low: 11.9g/ dLhigh : 15.8g/ dL low Not Available Not Available 10/28/2024 12:15:54 10/09/1910/08/2024 CBC panel - Blood by Autom ated count hematocrit [volume fraction] of blood by automated count 31 % low: 34.8%h igh: 46.1% low Not Available Not Available 10/28/2024 12:15:54 10/09/1910/08/2024 CBC panel - Blood by Autom ated count MCV [entitic mean volume] in red blood cells by automated count 90.4 fL low: 80fLhi gh: 98fL Not Available Not Available 10/28/2024 12:15:54 10/09/1910/08/2024 CBC panel - Blood by Autom ated count MCH [entitic mass] by automated count 29.7 pg low: 26.7pg high: 33.6pg Not Available Not Available 10/28/2024 12:15:54 10/09/19 25 10/08/2024 CBC panel - Blood by Autom ated count MCHC [entitic mass/volume] in red blood cells by automated count 32.9 g/dL low: 31.7g/ dLhigh : 36.3g/ dL Not Available Not Available 10/28/2024 12:15:54 10/09/19 25 10/08/2024 CBC panel - Blood by Autom ated count erythrocyte [distwidth] in red blood cells by automated count 13.9 % low: 11.3%h igh: 14.8% Not Available Not Available 10/28/2024 12:15:54 10/09/19 25 10/08/2024 CBC panel - Blood by Autom ated count platelets [#/volume] in blood by automated count 318 text: 150 - 420 x10e9/ L Not Available Not Available 10/28/2024 12:15:54 10/09/19 25 10/08/2024 CBC panel - Blood by Autom ated count platelet [entitic mean volume] in blood by automated count 9.6 fL low: 7.8fLh igh: 11.4fL Not Available Not Available 10/28/2024 12:15:54 10/09/19 25 10/08/2024 CBC panel - Blood by Autom ated count interpretati on and review of laboratory results Abnorm al Not Available Not Available 12:15:54 10/09/19 25 10/08/2024 [facility] 2000 panel - Serum or Plasm a urea nitrogen [mass/volume ] in serum or plasma 23 mg/dL low: 7mg/dL high: 26mg/d L Not Available Not Available 10/28/2024 12:15:54 10/09/19 25 10/08/2024 [facility] 2000 panel - Serum or Plasm a creatinine [mass/volume ] in serum or plasma 1.15 mg/dL low: 0.56mg /dLhig h: 0.96mg /dL high Not Available Not Available 10/28/2024 12:15:54 10/09/19 25 10/08/2024 [facility] 2000 panel - Serum or Plasm a sodium [moles/volum e] in serum or plasma 137 mmol/ L low: 136mmo l/Lhig h: 145mmo l/L Not Available Not Available 10/28/2024 12:15:54 10/09/19 25 10/08/2024 [facility] 2000 panel - Serum or Plasm a potassium [moles/volum e] in serum or plasma 4.3 mmol/ L low: 3.5mmo l/Lhig h: 4.5mmo l/L Not Available Not Available 10/28/2024 12:15:54 10/09/1910/08/2024 [facility] 1999 panel - Serum or Plasm a chloride [moles/volum e] in serum or plasma 108 mmol/ L low: 98mmol /Lhigh : 107mmo l/L high Not Available Not Available 10/28/2024 12:15:54 10/09/19 25 10/08/2024 [facility] 1999 panel - Serum or Plasm a carbon dioxide, total [moles/volum e] in serum or plasma 25 mmol/ L low: 22mmol /Lhigh : 29mmol /L Not Available Not Available 10/28/2024 12:15:54 10/09/19 25 10/08/2024 [facility] 1999 panel - Serum or Plasm a glucose [mass/volume ] in serum or plasma 270 mg/dL low: 70mg/d Lhigh: 99mg/d L high Not Available Not Available 10/28/2024 12:15:54 10/09/19 25 10/08/2024 [facility] 1999 panel - Serum or Plasm a calcium [moles/volum e] in serum or plasma 8.6 mg/dL low: 8.4mg/ dLhigh : 10.2mg /dL Not Available Not Available 10/28/2024 12:15:54 10/09/19 25 10/08/2024 [facility] 1999 panel - Serum or Plasm a anion gap 4 low: 6high: 16 low Not Available Not Available 10/28/2024 12:15:54 10/09/19 25 10/08/2024 [facility] 1999 panel - Serum or Plasm a urea nitrogen/cre atinine [mass ratio] in serum or plasma 20 low: 7high: 23 Not Available Not Available 10/28/2024 12:15:54 10/09/19 25 10/08/2024 [facility] 1999 panel - Serum or Plasm a osmolality calculated 297 text: 275 - 295 mOsm/k g high Not Available Not Available 10/28/2024 12:15:54 10/09/19 25 10/08/2024 [facility] panel - Serum or Plasm a glomerular filtration rate [volume rate/area] in serum, plasma or blood by creatinine-b ased formula (CKD-epi 2020)/1.73 sq M 50 text: >=90 mL/min /1.73 m2 low Estim ated Glome rular Filtr ation Rate (eGFR ) calcu lated using the CKD-E PI Creat inine Equat ion (2020 ), per the Natio n[facility] [employer] [employer] ation and Ameri can [place] [employer] Nephr ology recom menda tions . Not Available Not Available 10/28/2024 12:15:54 10/09/19 25 10/08/2024 [facility] 2000 panel - Serum or Plasm a interpretati on and review of laboratory results Abnorm al Not Available Not Available 12:15:54 10/09/19 25 10/08/2024 Phosp hate [Mass /volu me] in Serum or Plasm a phosphate [mass/volume ] in serum or plasma 2.8 mg/dL low: 2.9mg/ dLhigh : 5.1mg/ dL low Not Available Not Available 10/28/2024 12:15:54 10/09/19 25 10/08/2024 Phosp hate [Mass /volu me] in Serum or Plasm a interpretati on and review of laboratory results Abnorm al Not Available Not Available 12:15:54 10/09/19 25 10/08/2024 Magne sium [Mass /volu me] in Serum or Plasm a magnesium [mass/volume ] in serum or plasma 2 mg/dL low: 1.6mg/ dLhigh : 2.6mg/ dL Not Available Not Available 10/28/2024 12:15:54 10/09/19 25 10/08/2024 Magne sium [Mass /volu me] in Serum or Plasm a interpretati on and review of laboratory results Normal Not Available Not Available 10/02 12:15:54 10/09/19 25 10/08/2024 Gluco se [Mass /volu me] in Arter ial blood glucose [mass/volume ] in capillary blood by glucometer 196 mg/dL low: 70mg/d Lhigh: 99mg/d L high Not Available Not Available 10/28/2024 12:26:19 10/09/19 25 10/08/2024 Gluco se [Mass /volu me] in Arter ial blood specimen source identified Arteri al/Cap illary Not Available Not Available 12:26:19 10/09/19 25 10/08/2024 Gluco se [Mass /volu me] in Arter ial blood interpretati on and review of laboratory results Abnorm al Not Available Not Available 12:26:19 10/09/19 25 10/08/2024 Gluco se [Mass /volu me] in Arter ial blood glucose [mass/volume ] in capillary blood by glucometer 196 mg/dL low: 70mg/d Lhigh: 99mg/d L high Not Available Not Available 10/28/2024 12:16:19 10/09/19 25 10/08/2024 Gluco se [Mass /volu me] in Arter ial blood specimen source identified Arteri al/Cap illary Not Available Not Available 12:16:19 10/09/19 25 10/08/2024 Gluco se [Mass /volu me] in Arter ial blood interpretati on and review of laboratory results Abnorm al Not Available Not Available 12:16:19 10/09/19 25 10/08/2024 Gluco se [Mass /volu me] in Arter ial blood glucose [mass/volume ] in capillary blood by glucometer 205 mg/dL low: 70mg/d Lhigh: 99mg/d L high Not Available Not Available 10/28/2024 12:26:19 10/09/19 25 10/08/2024 Gluco se [Mass /volu me] in Arter ial blood specimen source identified Arteri al/Cap illary Not Available Not Available 12:26:19 10/09/19 25 10/08/2024 Gluco se [Mass /volu me] in Arter ial blood interpretati on and review of laboratory results Abnorm al Not Available Not Available 12:26:19 10/09/19 25 10/08/2024 Gluco se [Mass /volu me] in Arter ial blood glucose [mass/volume ] in capillary blood by glucometer 205 mg/dL low: 70mg/d Lhigh: 99mg/d L high Not Available Not Available 10/28/2024 12:16:19 10/09/19 25 10/08/2024 Gluco se [Mass /volu me] in Arter ial blood specimen source identified Arteri al/Cap illary Not Available Not Available 12:16:19 10/09/19 25 10/08/2024 Gluco se [Mass /volu me] in Arter ial blood interpretati on and review of laboratory results Abnorm al Not Available Not Available 12:16:19 10/29/19 elect rocar diogr am No observ ation record ed. [email or web address] In-Office Order Internal Use Only DO Not Attach Compendium DO Not Attach Compendium, Do Not Delete/merge, [id number] 10/28/2024 12:47:55 10/29/19 25 10/28/2024 elect rocar diogr am No observ ation record ed. BARCODE In-Office Order Internal Use Only DO Not Attach Compendium DO Not Attach Compendium, Do Not Delete/merge, [id number] 10/28/2024 12:55:21 Result Notes None recorded. Problems Name Problem SNOMED Code Status Onset Date Resolution Date Notes Provider Name and Address Organization Details Recorded Time Diabetes mellitus 36928979 Active NIDDM TYPE II RADHA BONILLA NP Attn: Nicole fisher,[address] [place], [address], [place] - [facility] 8 14:39:52 Essential hypertens ion 41536758 Active RADHA BONILLA NP Attn: Nicole fisher,[address] [place], [address], [place] [facility] 8 14:39:52 Lesion of tongue 594588563 Completed 10/17/2019 FIONA MATTSON Attn: Nciole fisher,[address] [place], [address], [place] [facility] 0 17:33:41 Acute sinusitis 94218169 Completed 01/02/2019 FIONA MATTSON Attn: Nicole fisher,[address] [facility], [place], [address], [place] [facility] 9 12:25:34 Depressiv e disorder 68105424 Active RADHA BONILLA NP Attn: Nicole fisher,[address] [facility], [place], [address], [place] [facility] 8 14:39:52 Purpuric rash 231349124 Completed 07/09/2019 FIONA MATTSON Attn: Nicole fisher,[address] [facility], [place], [address], [place] [facility] 0 11:18:09 Pain in left knee Active ARDHA BONILLA NP Attn: Nicole fisher,[address] [facility], [place], [address], [place] [facility] 8 14:39:52 Serum creatinin e above reference range 201250241 Completed 07/09/2019 ISABELLA MATTSONC Attn: Nicole fisher,[address] [facility], [place], [address], [place] [facility] 0 11:18:07 Chronic kidney disease stage 3 259967684 Active 2018 Nuha Gold [place], [place] [facility] 9 14:16:49 Atrial fibrillat ion 73497855 Active 2023 DEVI PAULSON Attn: Nicole fisher,[address] [facility], [place], [address], [place] [facility] 4 15:28:30 Morbid obesity 852824646 Active 2023 DEVI PAULSON Attn: Nicole fisher,[address] [facility], [place], [address], [place] [facility] 4 06:53:43 Tachycard ia 2153541 Active 2023 DEVI PAULSON Attn: Nicole fisher,[address] [facility], [place], [address], [place] [facility] 4 06:54:15 Venous stasis ulcer with edema of right lower leg 816858627120 99345 Active 2023 DEVI PAULSON Attn: Sherifhector fisher,[address] [facility], [place], [place], [address] [place] [address], [place] [facility] 4 08:31:12 Poor balance 812213640 Active 2023 DEVI PAULSON Attn: Sherifhector [place],[address] [place], [place], [address] [place] [address], [place] [facility] 4 08:31:13 Hyperlipi demia 92202837 Active 2023 DEVI PAULSON Attn: Sherifhector fisher,[address] [place], [place], [address] [place] [address], [place] [facility] 4 08:31:16 Orthostat ic hypotensi on 40638808 Active 2023 DEVI PAULSON Attn: Nicole natalia,[address] [place], [place], [address] [place] [address], [place] [facility] 4 12:38:10 Obesity 095809444 Active 2023 DEVI PAULSON Attn: Sherifhector fisher,[address] [facility], [place], [place], [address] [place] [address], [place] [facility] 4 12:38:44 Impairmen t of balance 748746669 Active 2024 DEVI PAULSON Attn: Nicole natalia,[address] [place], [place], [address] [place] [address], [place] [facility] 5 14:21:39 Type 2 diabetes mellitus 78988726 Active 2024 DEVI PAULSON Attn: Nicole natalia,[address] [place], [place], [address] [place] [address], [place] [facility] 5 14:21:40 Problem Notes None recorded. Procedures Surgical History Date Name Laterality Status Provider Name and Address Organization Details Recorded Time 3 Date of Last Mammogram completed Olivia Francisco [place] - [place] 05/10/2023 14:38:56 7 Knee Surgery completed Nuha Gold [place] - [facility] 07/11/2016 09:16:30 Other completed Nuha Gold [place] - [facility] 12/16/2015 11:34:10 Other completed Nuha Gold [place] [facility] 12/16/2015 11:34:10 Breast Surgery completed Nuha Gold [place] - [facility] 12/16/2015 11:34:10 Imaging Results None recorded. Procedure Notes None recorded. Medical Equipment None Reported. Allergies No known drug allergies Medications Name Sig Start Date Stop Date Status Note LastModified by Organization Details LastModified Time Prescript ion - New 08/02 completed Not Available Not Available Not Available pioglitaz one 15 mg tablet TAKE 1 TABLET BY MOUTH EVERY DAY DIRECTED 01/12 completed Pt has not been taking for 2 months and A1C is normal Not Available Not Available Not Available atorvasta tin 40 mg tablet TAKE [...] e 50 mcg/actua tion nasal spray,luann pension Sharon 2 sprays every day by intranas al [...] mg every week by subcutan eous route. 09/02 completed Not Available Not Available Not Available Ozempic 0.25 mg or 0.5 mg (2 mg/3 mL) subcutane ous pen injector 12/11 completed Not Available Not Available Not Available Vitals None Recorded Social History Question Answer Notes LastModified by Organizat ion Details LastModified Time Tobacco Smoking Status Former Smoker Stopped when 24 yrs old Nilam Zarco [place], [place] [facility] 07/13/2020 15:23:56 Hard Of Hearing Or Deaf [...] Functional Status Question Answer Note LastModified by [email or web address] Details LastModified Time What is your level of alcohol consumption? Occasional [id number] Information not available 05/21/2014 Are you able to care for yourself independently? Yes Information not available 12/16/2015 Mental Status [...] [place] [facility] 12/26/2023 08:39:13 COVID-19, mRNA, LNP-S, PF, 30 mcg/0.3 mL dose 1 completed [place] [facility] 12/26/2023 08:39:13 Tdap 2 completed RADHA BONILLA NP Attn: [address] [place], [address], [place] [facility] 07/06/2017 14:40:03 pneumococcal polysaccharide PPV23 5 completed Not Available [facility] 04/20/2019 02:29:46 Pneumococcal conjugate PCV20, polysaccharide ESO379 conjugate, adjuvant, PF 4 completed DEVI PAULSON Attn: [address] [place], [address], [place] [facility] 05/16/2023 06:12:24 Past Encounters Encounter ID Performer Location Encounter Start Date Encounter Closed Date Diagnosis/Indication Diagnosis SNOMED-CT Code Diagnosis ICD10 Code Diagnosis Note [id number] Elton Solis MD [facility] [address] [place] [address] 10/28/2024 12:24:09 10/28/2024 12:49:12 Type 2 diabetes mellitus 00198846 E11.9 Z79.4 Palpitations 12928910 R0 0.2 Health Concerns Section Related Observation LastModified by Organization Detai ls LastModified Time None Recorded Concern Status LastModified by Organization Details LastModified Time None Recorded Payers Encounter Date Sequence Insurance Name Policy Number Policy Leo Covered Member ID Leo Member ID Guarantor Name 10/28/2024 1 [place] Jocelyn Norman [id number] Jocelyn Norman 10/28/2024 2 [employer] (MEDICARE SUPPLEMENT) Jocelyn Norman [id number] Jocelyn Norman OBGyn Episode No OBEpisode recorded.
--- OUTSIDE RECORDS SUMMARY | 2024-10-28 12:14 | XMS_ITS | Clinical Summary ---
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 Name Role Phone Rosanne Emerson Primary [...] mouth daily 90 tablet 3 5 Active Active Problems Problem Noted Date Diagnosed [...] Encounters Date Type Department Care Team Description 10/07/2024 Results Follow-Up [facility] Medical Group Cardiology at [address] [place] [phone] Mitch Dunn MD [facility] Mobile Cardiac Telemetry Event Monitor 09/25/2024 Orders Only [facility] Medical [facility] Cardiology [address] [place] [address] [place] [phone] Corazon Rolon NP 09/19/2024 2:30 PM CDT Ancillary Procedure [facility] Cardiology [address] [place] [address] [place] [phone] Atrial fibrillation, unspecified type (HCC) 09/19/2024 Telephone [facility] Cardiology [address] [place] [address] [address] [place] [phone] Mitch Dunn MD 09/16/2024 Telephone [facility] Cardiology [address] [place] [address] [place] [phone] Ashanti Dove NP 08/21/2024 11:10 AM CDT - 08/21/2024 11:59 PM CDT Hospital Encounter [facility] Imaging and Radiology [address] [place] [address] Screening mammogram, encounter for; Encounter for screening mammogram for malignant neoplasm of breast Discharge Disposition: Discharge to home or self care from Last 3 Months Surgical History Surgery [...] on file Legal Sex Female 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 Gender Identity Not on file Sexual Orientation Not on file Obstetrics History Last Filed Vital Signs Vital Sign Reading Time Taken Comments Blood Pressure 128/56 05/02/2024 3:43 PM DISTRICT WILDLIFE MANAGER Pulse 64 05/02/2024 3:43 PM DISTRICT WILDLIFE MANAGER Temperature - - Respiratory Rate - - Oxygen Saturation 96% 05/02/2024 3:43 PM DISTRICT WILDLIFE MANAGER Inhaled Oxygen Concentration - - Weight 118.8 kg (262 lb) 05/02/2024 3:43 PM DISTRICT WILDLIFE MANAGER Height 165.1 cm (5' 5) 05/02/2024 3:43 PM DISTRICT WILDLIFE MANAGER Body Mass Index 43.6 05/02/2024 3:43 PM DISTRICT WILDLIFE MANAGER Plan of Treatment Health Maintenance Due Date [...] exists Lipid Panel 07/27/2024 07/28/2023 Influenza Vaccine (#1) 2024 Breast Cancer Screening-Mammogram Discontinued 08/21/2024, 03/09/2023, 03/09/2023, Additional history exists Procedures Procedure Name Priority Date/Time Associated Diagnosis Comments CARDIOLOGY DOCUMENT SCAN Routine 09/19/2024 2:42 PM CDT [facility] - MOBILE CARDIAC TELEMETRY EVENT MONITOR Routine 09/19/2024 2:41 PM CDT Atrial fibrillation, unspecified type (HCC) CARDIOLOGY DOCUMENT SCAN Routine 09/18/2024 2:40 PM CDT CARDIOLOGY DOCUMENT SCAN Routine 09/17/2024 2:29 PM CDT SCREENING MAMMOGRAM BILATERAL W KODI Schedule Routine, Read Routine (OP Routine) 08/21/2024 11:30 AM CDT Encounter for screening mammogram for malignant neoplasm of breast POCT LIPID PANEL Routine 07/28/2023 10:3 2 AM CDT Hyperlipidemia, unspecified hyperlipidemia type from Last 3 Months or Most Recently Relevant to Health Maintenance Results * Cardiology Document Scan (09/19/2024 2:42 PM CDT) Anatomical Region Laterality Modality Other Fiorella Hodge MD CV CARDIAC SERVICES PROCEDU RES Final Result * [facility] Mobile Cardiac Telemetry Event Monitor (09/19/2024 2:41 PM CDT) Anatomical Region Laterality Modality Electrocardiogra phy Narrative 10/02/2024 1:01 PM CDT AMBULATORY RAISIN WASHER REPORT Patient Name: Jocelyn Norman Date of : 1950 Requesting Physician: Dr. Dunn Date of interpretation: 10/02/24 Type of monitor : One-week event monitor Date of the study/Enrollment period: 09/19/2024-09/25/2024 Indication: Unspecified atrial fibrillation Quality of the study: Adequate Interpretation: Predominant underlying rhythm is sinus rhythm, heart rate 44-134 beats per minute, average heart rate 65 beats per minute. Supraventricular ectopy was seen in the form of PACs with a burden of 4% for the duration of the study. Occasional ventricular ectopy in the form of PVCs; 2 episodes of 4 beat nonsustained ventricular tachycardia. Patient reported symptom of fatigue or tiredness which correlated with sinus rhythm. Conclusions: Predominant underlying rhythm is sinus rhythm, average heart rate 65 beats per minute. Supraventricular ectopy in the form of PACs with a burden of 4% for the duration of the study. Ventricular ectopy and two episodes of brief 4 beat NSVT noted, total ventricular ectopic burden <1%. No other significant arrhythmias. Patient reported symptoms of fatigue which correlated with sinus rhythm. Voice recognition software was used to complete this document, therefore, kelp cutter variances may occur. Chava Meraz MD, [facility] 10/02/24 Procedure Note Chava Meraz MD - 10/02/2024 AMBULATORY RAISIN WASHER REPORT Patient Name: Jocelyn Norman Date of : 1950 Requesting Physician: Dr. Dunn Date of interpretation: 10/02/24 Type of monitor : One-week event monitor Date of the study/Enrollment period: 09/19/2024-09/25/2024 Indication: Unspecified atrial fibrillation Quality of the study: Adequate Interpretation: Predominant underlying rhythm is sinus rhythm, heart [id number] beats per minute, average heart rate 65 beats per minute.Supraventricular ectopy was seen in the form of PACs with a burden of 4%for the duration of the study. Occasional ventricular ectopy in the formof PVCs; 2 episodes of 4 beat nonsustained ventricular tachycardia.Patient reported symptom of fatigue or tiredness which correlated withsinus rhythm. Conclusions: Predominant underlying rhythm is sinus rhythm, average heart rate 65 beatsper minute. Supraventricular ectopy in the form of PACs with a burden of 4% for theduration of the study. Ventricular ectopy and two episodes of brief 4beat NSVT noted, total ventricular ectopic burden <1%. No other significant arrhythmias. Patient reported symptoms of fatigue which correlated with sinus rhythm. Voice recognition software was used to complete this document, therefore,kelp cutter variances may occur. Chava Meraz MD, [facility] 10/02/24 Mitch Dunn MD CV CARDIAC SERVICES PRO CEDURES Final Result * Cardiology Document Scan (09/18/2024 2:40 PM CDT) Anatomical Region Laterality Modality Other Mitch Dunn MD CV CARDIAC SERVICES PRO CEDURES Final Result * Cardiology Document Scan (09/17/2024 2:29 PM CDT) Anatomical Region Laterality Modality Other Result [facility] Corazon Rolon NP CV CARDIAC SERVICES PROCEDUR ES Final Result * Screening Mammogram Bilateral W Kodi (08/21/2024 [...] Capillary blood 07/28/2023 1 0:32 AM CDT [facility] Leonides Dunn MD POINT OF CARE TEST SARAVANAN CASTANEDA Final Result from Last 3 Months or Most Recently Relevant to Health Maintenance Insurance MEDICARE [facility] MEDICARE AARP Care Teams 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
--- OUTSIDE RECORDS SUMMARY | 2024-10-28 12:14 | XMS_ITS | Clinical Summary ---
Author Organization [facility] Address [address] [place] [address] Phone Care Team Providers Care Biomedical Service Engineer Name Role Phone Unavailable Primary Care Provider [...] Encounters Date Type Department Care Team Description 10/16/2024 External Device Data STL ABSTRACTION Provider, Abstract 10/16/2024 External Device Data STL ABSTRACTION Provider, Abstract 10/15/2024 External Device Data STL ABSTRACTION Provider, Abstract 09/24/2024 External Device Data STL ABSTRACTION Provider, Abstract 09/18/2024 External Device Data STL ABSTRACTION Provider, Abstract 09/17/2024 External Device Data STL ABSTRACTION Provider, Abstract 08/22/2024 External Device Data STL ABSTRACTION Provider, [...] Comments Blood Pressure 97/51 05/27/2024 2:14 PM PHP SOFTWARE ENGINEER Pulse 53 05/27/2024 2:14 PM PHP SOFTWARE ENGINEER Temperature 36.2 C (97.1 F) 05/27/2024 2:14 PM PHP SOFTWARE ENGINEER Respiratory Rate 15 05/27/2024 2:14 PM PHP SOFTWARE ENGINEER Oxygen Saturation 97% 05/27/2024 2:14 PM PHP SOFTWARE ENGINEER Inhaled Oxygen Concentration - - Weight 120.2 kg (265 lb) 05/27/2024 2:14 PM PHP SOFTWARE ENGINEER Height 165.1 cm (5' 5) 11/17/2023 10:49 AM CDT Body Mass Index 44.1 11/17/2023 10:49 AM CDT Plan of Treatment Upcoming Encounters Date Type Department Care Team (Late st Contact Info) Description 12/19/2024 2:00 PM CDT Office Visit [facility] Oncology and Hematology - [place] [address] [place] [address] Gurjit Ayala MD [address] [facility] [address] [place] [address] Health Maintenance Due Date Last Done Comments DIABETES ANNUAL FOOT EXAM 07/16/1967 DIABETES ANNUAL RETINAL EXAM 07/16/1967 DIABETES MICROALBUMIN ANNUAL SCREEN 07/16/1967 LDL CHOLESTEROL ANNUAL 07/16/1967 FIT-DNA Q 3 years 1994 FIT/FOBT Q 1 year 1994 Flex Sig/CT Colonography Q 5 years 1994 ZOSTER VACCINE (1 of 2) 07/16/1999 OSTEOPOROSIS SCREENING 2014 COVID-19 Vaccine (5 - 2023-2 5 season) 2023 01/12/2021, 07/03/2020, 06/21/2020, Additional history exists RSV VACCINE (60+ or ) (1 - 1-dose 75+ series) 2024 INFLUENZA VACCINE (#1) 2024 DIABETES HBA1C Q 6 MONTHS 03/29/20252024, 09/26/2024, 04/04/2024, Additional history exists COLORECTAL SCREENING 11/19/2029 11/20/2019 Colorectal Cancer Screening 11/19/2029 DTAP/TDAP/TD VACCINES (3 - T d or Tdap) 09/26/2034 09/26/2024, 02/07/2012 PNEUMOCOCCAL VACCINE 50+ YEARS Completed 0 05/10/2023, 12/09/2014, 12/09/2014 Procedures Procedure Name Priority Date/Time Associated Diagnosis Comments HEMOGLOBIN A1C Routine 03/13/2017 7:28 AM PHP SOFTWARE ENGINEER Encounter for general adult medical examination without abnormal findings from Last 3 Months or Most Recently Relevant to Health Maintenance Results * (ABNORMAL) HEMOGLOBIN A1C (03/13/2017 7:28 AM PHP SOFTWARE ENGINEER) HEMOGLOBIN A1C 6.3(H) 4.0 - 6.0 % 03/13/2017 10:54 AM PHP SOFTWARE ENGINEER [facility] EST. AVG GLUCOSE, A1C 134 mg/dL 03/13/2017 10:54 AM PHP SOFTWARE ENGINEER [facility] Blood Venipuncture / Unknown 03/13/2017 7:28 AM PHP SOFTWARE ENGINEER 03/13/2017 9:18 AM PHP SOFTWARE ENGINEER us Zain Smith MD CHEMISTRY ORDERABLES Final R esult [facility] [employer] [facility] CLIA# [id number] [address] [place] [address] from Last 3 Months or Most Recently Relevant to Health Maintenance Insurance MEDICARE PART A AND B [facility] [id number]
--- OUTSIDE RECORDS SUMMARY | 2024-10-28 12:14 | XMS_ITS | Clinical Summary ---
Author Organization [facility] Address [address] [place] [address] Phone Care Team Providers Care Director Private Music Therapy Agency Name Role Phone TarikrosiobriandaBridget DERMATOLOGY SPECIALIST Primary Care Provider [phone] Allergies Active Allergy Reactions Criticality Noted Date [...] on file Legal Sex Female 9:18 AM BRILLIANDEER LOPPER Gender Identity Not on file Sexual Orientation Not on file Last Filed Vital Signs Vital Sign Reading Time Taken Comments Blood Pressure 150/68 03/09/2017 7:45 AM BRILLIANDEER LOPPER Pulse 105 03/08/2017 10:53 PM BRILLIANDEER LOPPER Temperature 37.3 C (99.2 F) 03/09/2017 7:45 AM BRILLIANDEER LOPPER Respiratory Rate 18 03/09/2017 7:45 AM BRILLIANDEER LOPPER Oxygen Saturation 95% 03/09/2017 7:45 AM BRILLIANDEER LOPPER Inhaled Oxygen Concentration - - Weight 115.7 kg (255 lb) 03/06/2017 2:20 PM BRILLIANDEER LOPPER Height 167.6 cm (5' 6) 03/06/2017 2:20 PM BRILLIANDEER LOPPER Body Mass Index 41.16 03/06/2017 2:20 PM BRILLIANDEER LOPPER Plan of Treatment Health Maintenance Due Date [...] - 1-dose 75+ series) 2024 Influenza Immunization (#1) 2024 Hepatitis B Immunization Aged Out No [...] this topic Medical Devices Implanted Type Area Project Portfolio Analyst Device Identifier Shelf Expiration Date Model / Serial / Lot Cmnt Bn Endrn Sst Gnta 40gm Hvisc - [id number] Implanted:Qty: 2 on 07/04/2016 by Rian Foss MD at [facility] IMPLANT Left: Knee JNJ / [employer] 01/31/2018 [id number] / / [id number] Cmnt Bn Cmw2 20gm Strl - [id number] Implanted:Qty: 1 on 07/04/2016 by Rian Foss MD at [facility] IMPLANT Left: Knee [employer] / [employer] 08/31/2017 [id number] / / [id number] Cmpnt Ptlr 38mm Medialized Dome Attune - [id number] Implanted:Qty: 1 on 07/04/2016 by Rian Foss MD at [facility] IMPLANT Left: Knee [employer] / [employer] 01/31/2021 [id number] / / [id number] Cmnt Bn Sst Gnta Hvisc 40gm - [id number] Implanted:Qty: 1 on 03/06/2017 by Rian Foss MD at [facility] IMPLANT Right: Knee [employer] / [employer] 12/31/2017 [id number] / [id number] / [id number] Cmnt Bn Sst Gnta Hvisc 40gm - [id number] Implanted:Qty: 1 on 03/06/2017 by Rian Foss MD at [facility] IMPLANT Right: Knee [employer]NJ / [employer] 01/31/2018 [id number] / [id number] / [id number] Dome Ptlr 35mm Attune Kn Aox Cmnt - [id number] Implanted:Qty: 1 on 03/06/2017 by Rian Foss MD at [facility] IMPLANT Right: Knee [employer]NJ / [employer] 12/01/2021 [id number] / [id number] / [id number] Attune Tibial Base Size 6 Cemented Implanted:Qty: 1 on 07/04/2016 by Rian Foss MD at [facility] Left: Knee [employer] 03/02/2026 [id number] / / [id number] Attune Tibial Insert Size 6, 8mm Implanted:Qty: 1 on 07/04/2016 by Rian Foss MD at [facility] Left: Knee [employer] 10/31/2017 [id number] / / [id number] Attune Femoral Size 6, Left Cemented Implanted:Qty: 1 on 07/04/2016 by Rian Foss MD at [facility] Left: Knee DePuy 03/02/2026 [id number] / / [id number] Attune Tibial Base Implanted:Qty: 1 on 03/06/2017 by Rian Foss MD at [facility] Right: Knee [employer] 07/01/2026 [id number] / [id number] / [id number] Attune Knee System Revision Cemented Stem Implanted:Qty: 1 on 03/06/2017 by Rian Foss MD at [facility] Right: Knee [employer] 12/31/2026 [id number] / [id number] / [id number] Attune Femoral Posterior Stabilized Implanted:Qty: 1 on 03/06/2017 by Rian Foss MD at [facility] Right: Knee [employer] 07/01/2026 150 / 150 / [id number] Attune Tibial Insert Implanted:Qty: 1 on 03/06/2017 by Rian Foss MD at [facility] Right: Knee [employer] 11/30/2021 [id number] / [id number] / [id number] Insurance [facility] MEDICARE Care Teams Director Private Music Therapy Agency Relationship Specialty Start Date End Date Bridget Trinidad APRN [address] [place] [address] PCP - General Advanced Practice Nurse 06/17/16
--- OUTSIDE RECORDS SUMMARY | 2024-10-28 12:14 | XMS_ITS | Encounter Summary ---
Author Organization [facility] Address [address] [place] [address] Care Team Providers Care Sales Host Name Role Phone Unavailable Primary Care Provider Unavailabl e Encounter Details Date Type Department Care Team (Late st Contact Info) Description 03/13/2017 Lab Requisition [facility] [address] [place] [address] Zain Smith MD [address] [place], [place] [phone] Encounter for general adult medical examination without [...] Description 12/19/2024 2:00 PM CDT Office Visit [facility] Oncology and Hematology - [place] [address] [place] [address] Gurjit Ayala MD [address] [facility] [address] [place] [address] documented as of this encounter Procedures Procedure Name Priority Date/Time Associated Diagnosis Comments CBC WITH DIFFERENTIAL Routine 03/13/2017 7:28 AM RUN BOAT OPERATOR Encounter for general adult medical examination without abnormal findings PTT Routine 03/13/2017 7:28 AM RUN BOAT OPERATOR Encounter for general adult medical examination without abnormal findings PROTIME-INR Routine 03/13/2017 7:28 AM RUN BOAT OPERATOR Encounter for general adult medical examination without abnormal findings HEMOGLOBIN A1C Routine 03/13/2017 7:28 AM RUN BOAT OPERATOR Encounter for general adult medical examination without abnormal findings documented in this encounter Results * PTT (03/13/2017 7:28 AM RUN BOAT OPERATOR) PTT 33.4 24.4 - 36.4 seconds 03/13/2017 10:58 AM RUN BOAT OPERATOR [facility] [employer] [facility] Comment: PTT Therapeutic Range: Heparin Level PTT (seconds) <0.10 units/mL <53 0.10 - 0.30 units/mL 53 - 67 0.30 - 0.70 units/mL* 67 - 95* 0.70 - 1.00 units/mL 95 - 116 *corresponds to therapeutic range for unfractionated heparin Blood Venipuncture / Unknown 03/13/2017 7:28 AM RUN BOAT OPERATOR 03/13/2017 9:18 AM RUN BOAT OPERATOR Zain Smith MD HEMATOLOGY ORDERABLES Final Result [facility]# [id number] [address] [place] [id number] * PROTIME-INR (03/13/2017 7:28 AM RUN BOAT OPERATOR) PROTIME 13.4 12.7 - 15.1 Seconds 03/13/2017 10:58 AM RUN BOAT OPERATOR [facility] [employer] [facility] INR 1.0 0.9 - 1.1 03/13/2017 10:58 AM [facility] [employer] [facility] Blood Venipuncture / Unknown 03/13/2017 7:28 AM RUN BOAT OPERATOR 03/13/2017 9:18 AM RUN BOAT OPERATOR Narrative [facility] [employer] [facility] - 03/13/2017 10:58 AM RUN BOAT OPERATOR INR Therapeutic Range: Adult: 2.0 - 3.0 for pulmonary embolism or prophylaxis against venous thrombosis or systemic embolization. 2.0 - 3.0 for patients with tissue heart valves. 2.5 - 3.5 for patients with mechanical heart valves or post SC. Pediatric (12 years and under): 1.5 - 3.0 Although the target range in children is not well established, INR values of 1.5 - 3.0 are recommended for most patients. Higher values have been used in children with prosthetic cardiac valves and hereditary clotting disorders. (<3 days) therapeutic ranges have not been established. Zain Smith MD HEMATOLOGY ORDERABLES Final Result [facility] CLIA# [id number] [address] [place] [address] * (ABNORMAL) CBC WITH DIFFERENTIAL (03/13/2017 7:28 AM RUN BOAT OPERATOR) WBC 5.0 4.0 - 9.8 K/uL 03/13/2017 10:15 AM [employer] [facility] - [facility] RBC 3.28(L) 4.50 - 5.40 M/uL 03/13/2017 10:15 AM [employer] [facility] - . [facility] HEMOGLOBIN 9.7(L) 13.6 - 16.5 g/dL 03/13/2017 10:15 AM [facility] - . [facility] HEMATOCRIT 30.7(L) 40.0 - 48.0 % 03/13/2017 10:15 AM [facility] - . [facility] MCV 93.6 82.0 - 99.0 fL 03/13/2017 10:15 AM [facility] - . [facility] MCH 29.6 27.2 - 32.6 pg 03/13/2017 10:15 AM [employer] - . [facility] MCHC 31.6 31.5 - 35.5 g/dL 03/13/2017 10:15 AM [facility] - . [facility] RDW 14.2 11.5 - 14.5 % 03/13/2017 10:15 AM [employer] - . [facility] RDW-STDEV 48.7 37.1 - 48.7 fL 03/13/2017 10:15 AM [employer] - . [facility] PLATELETS 261 140 - 350 K/uL 03/13/2017 10:15 AM [employer] - [facility] MPV 10.0 9.3 - 12.4 fL 03/13/2017 10:[address] [facility] [employer] SERVICES - [facility] NEUTROPHILS 33 % 03/13/2017 10:[address] [facility] [employer] [facility] LYMPHOCYTES 43 % 03/13/2017 10:[address] [facility] [employer] [facility] MONOCYTES 15 % 03/13/2017 10:[address] [facility] [employer] [facility] EOSINOPHILS 7 % 03/13/2017 10:[address] [facility] [employer] [facility] BASOPHILS 0 % 03/13/2017 10:[address] [facility] [employer] [facility] IMMATURE GRANULOCYTES 2 % 03/13/2017 10:[address] [facility] [employer] [facility] Comment:IG (Immature Granulo cyte) count includes Metamyelocytes, Myelocytes, and Promyelocytes NEUTROPHIL ABSOLUTE 1.68(L) 1.90 - 7.00 K/uL 03/13/2017 10:[address] [facility] [employer] [facility] - [facility] LYMPHOCYTE ABSOLUTE 2.14 0.70 - 4.50 K/uL 03/13/2017 10:[address] [facility] [employer] [facility] MONOCYTE ABSOLUTE 0.74 0.10 - 1.30 K/uL 03/13/2017 10:[address] [facility] [employer] - [facility] EOSINOPHIL ABSOLUTE 0.35 0.00 - 0.70 K/uL 03/13/2017 10:[address] [facility] [employer] - [facility] BASOPHILS ABSOLUTE 0.02 0.00 - 0.20 K/uL 03/13/2017 10:[address] [facility] [employer] [facility] - [facility] IMMATURE GRANULOCYTES ABSOLUTE 0.10(H) 0.00 - 0.03 K/uL 03/13/2017 10:[address] [facility] [employer] [facility] Blood Venipuncture / Unknown 03/13/2017 7:[address] [facility] 03/13/2017 9:18 AM RUN BOAT OPERATOR us Zain Smith MD HEMATOLOGY ORDERABLES Final Result [employer] [facility] CLIA# [id number] [address] [place] [address] * (ABNORMAL) HEMOGLOBIN A1C (03/13/2017 7:28 AM RUN BOAT OPERATOR) HEMOGLOBIN A1C 6.3(H) 4.0 - 6.0 % 03/13/2017 10:54 AM RUN BOAT OPERATOR [facility] EST. AVG GLUCOSE, A1C 134 mg/dL 03/13/2017 10:54 AM RUN BOAT OPERATOR [facility] Blood Venipuncture / Unknown 03/13/2017 7:28 AM RUN BOAT OPERATOR 03/13/2017 9:18 AM RUN BOAT OPERATOR us Zain Smith MD CHEMISTRY ORDERABLES Final R esult [facility]# [id number] [address] [place] [place] [address] documented in this encounter Visit Diagnoses Diagnosis Encounter for general adult medical examination without abnormal findings Routine general medical examination at a health care facility documented in this encounter
--- OUTSIDE RECORDS SUMMARY | 2024-10-28 12:14 | XMS_ITS | Referral Summary ---
Author Organization [address] Address [address] [place] [phone] Care Team Providers Care Rabbit Breeder Name Role Phone Rosanne Emerson Primary Care Provider + Encounters Date Type Department Care Team Description 10/07/2024 Results Follow-Up [facility] Cardiology at [address] [place] [phone] [facility] Mobile Cardiac Telemetry Event Monitor 09/25/2024 Orders Only [facility] Cardiology [address] [facility] [address] [place] [phone] Corazon Rolon NP 09/19/2024 2:30 PM CDT Ancillary Procedure [facility] Cardiology [address] [place] [address] [address] [place] [phone] Atrial fibrillation, unspecified type (HCC) 09/19/2024 Telephone [facility] Cardiology [address] [place] [address] [address] [place] [phone] Mitch Dunn MD 09/16/2024 Telephone [facility] Cardiology [address] [facility] [address] [place] [phone] Ashanti Dove NP 08/21/2024 11:10 AM CDT - 08/21/2024 11:59 PM CDT Hospital Encounter [facility] [address] [place] [phone] Screening mammogram, encounter for; Encounter for screening mammogram for malignant neoplasm of breast Discharge Disposition: Discharge to home or self care from Last 3 Months Allergies Active Allergy [...] on file Legal Sex Female 7:43 PM WATER USE INSPECTOR Gender Identity Not on file Sexual Orientation Not on file Last Filed Vital Signs Vital Sign Reading Time Taken Comments Blood Pressure 128/56 05/02/2024 3:43 PM WATER USE INSPECTOR Pulse 64 05/02/2024 3:43 PM WATER USE INSPECTOR Temperature - - Respiratory Rate - - Oxygen Saturation 96% 05/02/2024 3:43 PM WATER USE INSPECTOR Inhaled Oxygen Concentration - - Weight 118.8 kg (262 lb) 05/02/2024 3:43 PM WATER USE INSPECTOR Height 165.1 cm (5' 5) 05/02/2024 3:43 PM WATER USE INSPECTOR Body Mass Index 43.6 05/02/2024 3:43 PM WATER USE INSPECTOR Plan of Treatment Not on file Procedures [...] PM CDT) Anatomical Region Laterality Modality Other us Fiorella Hodge MD [facility] PROCEDU RES Final Result * [facility] Mobile Cardiac Telemetry Event Monitor (09/19/2024 2:41 PM CDT) Anatomical Region Laterality Modality Electrocardiogra phy Narrative 10/02/2024 1:01 PM CDT AMBULATORY PRESSFITTER REPORT Patient Name: Jocelyn Norman Date of [...] was used to complete this document, therefore, back tender fourdrinier variances may occur. Chava Meraz MD, [facility] 10/02/24 Procedure Note Chava Meraz MD - 10/02/2024 AMBULATORY PRESSFITTER REPORT Patient Name: Jocelyn Norman Date of : 1950 Requesting Physician: Dr. Dunn Date of interpretation: 10/02/24 Type of monitor : One-week event monitor Date of the study/Enrollment period: 09/19/2024-09/25/2024 Indication: Unspecified atrial fibrillation Quality of the study: Adequate Interpretation: Predominant underlying rhythm is sinus rhythm, heart [id number] beats per minute, average heart rate 65 [...] software was used to complete this document, therefore,back tender fourdrinier variances may occur. Chava Meraz MD, [facility] 10/02/24 us Mitch Dunn MD [facility] PRO CEDURES Final Result * Cardiology Document Scan (09/18/2024 2:40 PM CDT) Anatomical Region Laterality Modality Other us Mitch Dunn MD [facility] PRO CEDURES Final Result * Cardiology Document Scan (09/17/2024 2:29 PM CDT) Anatomical Region Laterality Modality Other us Corazon Rolon NP [facility] PROCEDUR [...] Capillary blood 07/28/2023 1 0:32 AM CDT us Mitch Dunn MD POINT OF CARE TEST SARAVANAN CASTANEDA Final Result from Last 3 Months or Most Recently Relevant to Health Maintenance Insurance MEDICARE [facility] [place] [phone] [facility] Care Teams Rabbit Breeder Relationship Specialty Start Date End Date Rosanne Emerson PA PCP - General Physician Shrimp Trawler Captain 08/25/23
--- OUTSIDE RECORDS SUMMARY | 2024-10-28 12:14 | XMS_ITS | Clinical Summary ---
Author Organization [facility] Address [address] [place] [phone] Phone Care Team Providers Care Research Environmental Engineer Name Role Phone Kirsten Pendleton MD Primary Care Provider [phone] Allergies No known active allergies Medications glipiZIDE [...] on file Legal Sex Female 9:55 AM [facility] Gender Identity Not on file Sexual Orientation [...] - PCV) 12/10/2015 12/09/2014 COVID-19 Vaccine ( - season) 2023 01/12/2021, 07/03/2020, 06/21/2020 Influenza Vaccine (#1) [address] [facility] [place] Care Teams Research Environmental Engineer Relationship Specialty Start Date End Date Kirsten Pendleton MD [address] [place] [phone] PCP - General Family Medicine 04/01/19
--- OUTSIDE RECORDS SUMMARY | 2024-10-28 12:14 | XMS_ITS ---
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 Pressure 139.00 mm[Hg] MonOct 15 09:25:00 EDT 2024 Diastolic Blood Pressure 69.00 mm[Hg] MonOct 15 09:25:00 EDT 2025 Heart Rate 98.00 /min MonOct 15 09:25 :00 EDT 2024 Heart Rate 98.00 /min MonOct 15 09:25 :00 EDT 2025 Systolic Blood Pressure 88.00 mm[Hg] MonOct 14 21:26:44 EDT 2025 Diastolic Blood Pressure 51.00 mm[Hg] MonOct 14 21:26:44 EDT 5 Pulse Oximetry 96.00 % MonOct 14 21:26 :44 EDT 5 Heart Rate 135.00 /min MonOct 14 21:26 :44 EDT 2025 Body temperature 97.20 [degF] MonOct 14 21:2 6:44 EDT 5 Respiratory rate 16.00 /min MonOct 14 21:2 6:44 EDT 5 Systolic Blood Pressure 88.00 mm[Hg] MonOct 14 21:17:11 EDT 5 Diastolic Blood Pressure 51.00 mm[Hg] MonOct 14 21:17:11 EDT 5 Heart Rate 135.00 /min MonOct 14 21:17 :11 EDT 5 Body weight 292.60 [lb_av] MonOct 14 14:40 :33 EDT 5 Systolic Blood Pressure 118.00 mm[Hg] MonOct 14 11:50:03 EDT 2024 Diastolic Blood Pressure 53.00 mm[Hg] MonOct 14 11:50:03 EDT 2024 Pulse Oximetry 100.00 % MonOct 14 11:50 :03 EDT 5 Heart Rate 51.00 /min MonOct 14 11:50 :03 EDT 5 Body temperature 97.10 [degF] MonOct 14 11:5 0:03 EDT 5 Respiratory rate 18.00 /min MonOct 14 11:5 0:03 EDT 2025 Systolic Blood Pressure 118.00 mm[Hg] MonOct 14 09:14:56 EDT 2025 Diastolic Blood Pressure 53.00 mm[Hg] MonOct 14 09:14:56 EDT 2025 Systolic Blood Pressure 118.00 mm[Hg] MonOct 14 09:14:56 EDT 2025 Diastolic Blood Pressure 53.00 mm[Hg] MonOct 14 09:14:56 EDT 2025 Heart Rate 51.00 /min MonOct 14 09:14 :56 EDT 2025 Heart Rate 51.00 /min MonOct 14 09:14 :56 EDT 2025 Systolic Blood Pressure 115.00 mm[Hg] MonOct 13 21:04:01 EDT 2024 Diastolic Blood Pressure 52.00 mm[Hg] MonOct 13 21:04:01 EDT 2024 Pulse Oximetry 98.00 % MonOct 13 21:04 :01 EDT 2024 Heart Rate 52.00 /min MonOct 13 21:04 :01 EDT 2024 Body temperature 97.80 [degF] MonOct 13 21:0 4:01 EDT 2024 Respiratory rate 20.00 /min MonOct 13 21:0 4:01 EDT 2024 Systolic Blood Pressure 115.00 mm[Hg] MonOct 13 20:33:26 EDT 2024 Diastolic Blood Pressure 52.00 mm[Hg] MonOct 13 20:33:26 EDT 2024 Heart Rate 52.00 /min MonOct 13 20:33 :26 EDT 2024 Body weight 284.90 [lb_av] MonOct 13 17:19 :04 EDT 2024 Systolic Blood Pressure 132.00 mm[Hg] MonOct 13 09:12:57 EDT 2024 Diastolic Blood Pressure 78.00 mm[Hg] MonOct 13 09:12:57 EDT 2024 Systolic Blood Pressure 132.00 mm[Hg] MonOct 13 09:12:57 EDT 2024 Diastolic Blood Pressure 78.00 mm[Hg] MonOct 13 09:12:57 EDT 2024 Systolic Blood Pressure 132.00 mm[Hg] MonOct 13 09:12:57 EDT 2024 Diastolic Blood Pressure 78.00 mm[Hg] MonOct 13 09:12:57 EDT 2024 Pulse Oximetry 97.00 % MonOct 13 09:12 :57 EDT 2024 Heart Rate 77.00 /min MonOct 13 09:12 :57 EDT 2024 Heart Rate 77.00 /min MonOct 13 09:12 :57 EDT 2024 Heart Rate 77.00 /min MonOct 13 09:12 :57 EDT 2024 Body temperature 97.80 [degF] MonOct 13 09:1 2:57 EDT 2024 Respiratory rate 20.00 /min MonOct 13 09:1 2:57 EDT 2024 Systolic Blood Pressure 114.00 mm[Hg] MonOct 12 20:36:58 EDT 202 Diastolic Blood Pressure 62.00 mm[Hg] MonOct 12 20:36:58 EDT 2024 Pulse Oximetry 97.00 % Sat Oct 12 20:36 :58 EDT 2024 Heart Rate 51.00 /min Sat Oct 12 20:36 :58 EDT 2024 Body temperature 97.80 [degF] Sat Oct 12 20:3 6:58 EDT 2024 Respiratory rate 20.00 /min Sat Oct 12 20:3 6:58 EDT 2024 Systolic Blood Pressure 116.00 mm[Hg] Sat Oct 12 20:22:32 EDT 2024 Diastolic Blood Pressure 62.00 mm[Hg] Sat Oct 12 20:22:32 EDT 2024 Heart Rate 51.00 /min Sat Oct 12 20:22 :32 EDT 2024 Systolic Blood Pressure 131.00 mm[Hg] Sat Oct 12 10:59:45 EDT 2024 Diastolic Blood Pressure 87.00 mm[Hg] Sat Oct 12 10:59:45 EDT 2024 Pulse Oximetry 95.00 % Sat Oct 12 10:59 :45 EDT 2024 Body weight 285.00 [lb_av] Sat Oct 12 10:59 :45 EDT 2024 Heart Rate 93.00 /min Sat Oct 12 10:59 :45 EDT 2024 Body temperature 97.10 [degF] Sat Oct 12 10:5 9:45 EDT 2024 Respiratory rate 18.00 /min Sat Oct 12 10:5 9:45 EDT 2024 Systolic Blood Pressure 131.00 mm[Hg] Sat Oct 12 09:32:27 EDT 2024 Diastolic Blood Pressure 87.00 mm[Hg] Sat Oct 12 09:32:27 EDT 2024 Systolic Blood Pressure 131.00 mm[Hg] Sat Oct 12 09:32:27 EDT 2024 Diastolic Blood Pressure 87.00 mm[Hg] Sat Oct 12 09:32:27 EDT 2024 Heart Rate 93.00 /min MonOct 12 09:32 :27 EDT 2024 Heart Rate 93.00 /min MonOct 12 09:32 :27 EDT 2024 Systolic Blood Pressure 127.00 mm[Hg] MonOct 11 23:32:02 EDT 2024 Diastolic Blood Pressure 98.00 mm[Hg] MonOct 11 23:32:02 EDT 2024 Pulse Oximetry 100.00 % MonOct 11 23:32 :02 EDT 2024 Heart Rate 60.00 /min MonOct 11 23:32 :02 EDT 2024 Body temperature 97.80 [degF] MonOct 11 23:3 2:02 EDT 2024 Respiratory rate 16.00 /min MonOct 11 23:3 2:02 EDT 2024 Systolic Blood Pressure 127.00 mm[Hg] MonOct 11 21:28:10 EDT 2024 Diastolic Blood Pressure 98.00 mm[Hg] MonOct 11 21:28:10 EDT 2024 Heart Rate 60.00 /min MonOct 11 21:28 :10 EDT 2024 Body weight 285.80 [lb_av] MonOct 11 15:35 :56 EDT 2024 Systolic Blood Pressure 155.00 mm[Hg] MonOct 11 09:18:15 EDT 2024 Diastolic Blood Pressure 60.00 mm[Hg] MonOct 11 09:18:15 EDT 2024 Systolic Blood Pressure 155.00 mm[Hg] MonOct 11 09:18:15 EDT 2024 Diastolic Blood Pressure 60.00 mm[Hg] MonOct 11 09:18:15 EDT 2024 Systolic Blood Pressure 155.00 mm[Hg] MonOct 11 09:18:15 EDT 2024 Diastolic Blood Pressure 60.00 mm[Hg] MonOct 11 09:18:15 EDT 2024 Pulse Oximetry 97.00 % MonOct 11 09:18 :15 EDT 2024 Heart Rate 60.00 /min MonOct 11 09:18 :15 EDT 2024 Heart Rate 60.00 /min MonOct 11 09:18 :15 EDT 2024 Heart Rate 60.00 /min MonOct 11 09:18 :15 EDT 2024 Body temperature 98.50 [degF] MonOct 11 09:1 8:15 EDT 2024 Respiratory rate 18.00 /min MonOct 11 09:1 8:15 EDT 2024 Systolic Blood Pressure 146.00 mm[Hg] MonOct 10 20:36:32 EDT 2024 Diastolic Blood Pressure 55.00 mm[Hg] MonOct 10 20:36:32 EDT 2024 Heart Rate 62.00 /min MonOct 10 20:36 :32 EDT 2024 Systolic Blood Pressure 146.00 mm[Hg] MonOct 10 20:27:23 EDT 2024 Diastolic Blood Pressure 55.00 mm[Hg] MonOct 10 20:27:23 EDT 2024 Pulse Oximetry 97.00 % Beth Nic 10 20:27 :23 EDT 2024 Heart Rate 62.00 /min MonOct 10 20:27 :23 EDT 2024 Body temperature 98.00 [degF] MonOct 10 20:2 7:23 EDT 2024 Respiratory rate 18.00 /min MonOct 10 20:2 7:23 EDT 2024 Body weight 281.20 [lb_av] MonOct 10 18:30 :22 EDT 2024 Systolic Blood Pressure 113.00 mm[Hg] MonOct 10 10:52:18 EDT 2024 Diastolic Blood Pressure 86.00 mm[Hg] MonOct 10 10:52:18 EDT 2024 Pulse Oximetry 97.00 % MonOct 10 10:52 :18 EDT 2024 Heart Rate 90.00 /min MonOct 10 10:52 :18 EDT 2024 Body temperature 97.30 [degF] MonOct 10 10:5 2:18 EDT 2024 Respiratory rate 18.00 /min MonOct 10 10:5 2:18 EDT 2024 Systolic Blood Pressure 113.00 mm[Hg] MonOct 10 10:14:09 EDT 2024 Diastolic Blood Pressure 86.00 mm[Hg] MonOct 10 10:14:09 EDT 2024 Systolic Blood Pressure 113.00 mm[Hg] MonOct 10 10:14:09 EDT 2024 Diastolic Blood Pressure 86.00 mm[Hg] Beth Oct 10 10:14:09 EDT 2024 Heart Rate 90.00 /min MonOct 10 10:14 :09 EDT 2024 Heart Rate 90.00 /min MonOct 10 10:14 :09 EDT 2024 Systolic Blood Pressure 113.00 mm[Hg] MonOct 10 09:50:14 EDT 2024 Diastolic Blood Pressure 86.00 mm[Hg] MonOct 10 09:50:14 EDT 2024 Pulse Oximetry 97.00 % MonOct 10 09:50 :14 EDT 2024 Heart Rate 154.00 /min MonOct 10 09:50 :14 EDT 2024 Body temperature 97.30 [degF] Beth Oct 10 09:5 0:14 EDT 2024 Respiratory rate 18.00 /min MonOct 10 09:5 0:14 EDT 2024 Systolic Blood Pressure 113.00 mm[Hg] Wed Oct 09 20:17:57 EDT 2024 Diastolic Blood Pressure 76.00 mm[Hg] MonOct 09 20:17:57 EDT 2024 Systolic Blood Pressure 113.00 mm[Hg] MonOct 09 20:17:57 EDT 2024 Diastolic Blood Pressure 76.00 mm[Hg] MonOct 09 20:17:57 EDT 2024 Pulse Oximetry 97.00 % MonOct 09 20:17 :57 EDT 2024 Heart Rate 88.00 /min MonOct 09 20:17 :57 EDT 2024 Heart Rate 88.00 /min MonOct 09 20:17 :57 EDT 2024 Body temperature 98.10 [degF] MonOct 09 20:1 7:57 EDT 2024 Respiratory rate 20.00 /min MonOct 09 20:1 7:57 EDT 2024 Body Height 65.00 [in_i] MonOct 09 13:07 :37 EDT 2024 Body weight 280.20 [lb_av] MonOct 09 12:47 :52 EDT 2024 Systolic Blood Pressure 98.00 mm[Hg] MonOct 09 11:13:23 EDT 2024 Diastolic Blood Pressure 58.00 mm[Hg] MonOct 09 11:13:23 EDT 2024 Pulse Oximetry 98.00 % MonOct 09 11:13 :23 EDT 2024 Heart Rate 96.00 /min MonOct 09 11:13 :23 EDT 2024 Body temperature 97.90 [degF] MonOct 09 11:1 3:23 EDT 2024 Respiratory rate 18.00 /min MonOct 09 11:1 3:23 EDT 2024 Systolic Blood Pressure 98.00 mm[Hg] MonOct 09 08:52:03 EDT 2024 Diastolic Blood Pressure 58.00 mm[Hg] MonOct 09 08:52:03 EDT 2024 Systolic Blood Pressure 98.00 mm[Hg] MonOct 09 08:52:03 EDT 2024 Diastolic Blood Pressure 58.00 mm[Hg] MonOct 09 08:52:03 EDT 2024 Systolic Blood Pressure 94.00 mm[Hg] MonOct 08 21:21:18 EDT 2024 Diastolic Blood Pressure 70.00 mm[Hg] MonOct 08 21:21:18 EDT 2024 Systolic Blood Pressure 94.00 mm[Hg] MonOct 08 21:21:18 EDT 2024 Diastolic Blood Pressure 70.00 mm[Hg] MonOct 08 21:21:18 EDT 2024 Pulse Oximetry 99.00 % MonOct 08 21:21 :18 EDT 2024 Heart Rate 71.00 /min MonOct 08 21:21 :18 EDT 2024 Body temperature 97.00 [degF] MonOct 08 21:2 1:18 EDT 2024 Respiratory rate 18.00 /min MonOct 08 21:2 1:18 EDT 2024 Systolic Blood Pressure 112.00 mm[Hg] MonOct 08 18:19:00 EDT 2024 Diastolic Blood Pressure 58.00 mm[Hg] MonOct 08 18:19:00 EDT 2024 Pulse Oximetry 98.00 % MonOct 08 18:19 :00 EDT 2024 Heart Rate 66.00 /min MonOct 08 18:19 :00 EDT 2024 Body temperature 96.70 [degF] MonOct 08 18:1 9:00 EDT 2024 Respiratory rate 20.00 /min MonOct 08 18:1 9:00 EDT 2024 Body Height 65.00 [in_i] MonOct 08 18:19 :00 EDT 2024 Reason for Referral Past Medical History
--- OUTSIDE RECORDS SUMMARY | 2024-10-28 12:15 | XMS_ITS | Encounter Summary ---
Author Organization [facility] Healthcare Address [address] [place] [address] Care Team Providers Care Pharmacy Cashier Name Role Phone Rosanne Emerson Primary Care Provider + Encounter Details Date Type Department Care Team (Late st Contact Info) Description 10/07/2024 Results Follow-Up [facility] Cardiology at [place] [address] [facility] [address] [place] [phone] Mitch Dunn MD [address] [place] [address] [address] [place], [place] [id number] [facility] Mobile Cardiac Telemetry Event Monitor Social History Tobacco Use Types Packs/Day Years Used Date Smoking Tobacco: Former Smokeless Tobacco: Never Comments Unknown Sex and Gender Information Value Date Recorded Sex Assigned at Not on file 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
--- OUTSIDE RECORDS SUMMARY | 2024-10-28 12:15 | XMS_ITS | Clinical Summary ---
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 [facility] [phone] * DIGOXIN LEVEL (10/03/2024 12:25 PM CDT) Digoxin 0.8 0.5 - 1.2 ng/mL 10/03/2024 1:46 PM CDT [facility] Blood BLOOD SPECIMEN / Unknown Lab Venipuncture / Unknown 10/03/2024 12:25 PM CDT 10/03/2024 1:15 PM CDT Narrative [facility] - 10/03/2024 1:46 PM CDT Therapeutic reference range for heart failure is 0.5-0.9 ng/mL. For atrial fibrillation, it is 0.8-1.2 ng/mL. The breaker layer of Digoxin Immune Sai has stated that no immunoassay technique is suitable for quantitating digoxin in plasma/serum from patients on antibody fragment therapy. Isabel Willingham MD LAB - CHEMISTRY ORDERABLE S Final Result Performing Organization Address City/[facility] Co de Phone Number [address] [address], [place] [phone] * ECHO COMPLETE W CONTRAST (10/02/2024 10:21 AM CDT) LVOT pk grad 5.306 mmHg [facility]SM CV FUJI PACS LVOT pk dante 115.174 cm/s SSM CV F UJI PACS LVOT VTI 19.95 cm SSM CV FUJ I PACS RV-hamilton basal diam 4.293 cm SSM CV FUJI PACS RVIDd 2.345 cm SSM CV FUJ I PACS RVOT pk dante 73.637 cm/s SSM CV F UJI PACS RVOT VTI 12.31 cm SSM CV FUJ I PACS LA size 4.806 cm SSM CV FUJ I PACS RA area 20.678 cm SSM CV FUJI PACS AV pk grad 7.321 mmHg SSM CV FU JI PACS AV mn grad 3.892 mmHg SSM CV FU JI PACS AV pk dante 138.766 cm/s SSM CV [facility] I PACS AV VTI 24.057 cm SSM CV [facility] I PACS AV area pk dante 2.875 cm SSM CV FUJI PACS AV area cont VTI 2.872 cm [facility]SM CV FUJI PACS MV mn grad 1.91 mmHg SSM CV FU JI PACS MV VTI 25.66 cm SSM CV [facility] I PACS PV pk dante 94.44 cm/s SSM CV [facility] I PACS PV VTI 15.987 cm SSM CV [facility] I PACS TAPSE 1.658 cm SSM CV [facility] I PACS Ascending aorta 2.858 cm [facility] CV FUJI PACS LA vol index 0.024 l/m [facility]SM CV FUJI PACS LA vol BP 57.618 ml SSM CV [facility] I PACS Sinus of Valsalva 2.682 cm SS M [facility] AV area index 1.178 cm /m [facility] Dimensionless Index 0.829 unitless [facility] Myocardial strain charge 2 unitless [facility] CV FUJI PACS IVSd 2D 1.004 cm SSM CV [facility] I PACS LVIDd 4.489 cm SSM CV [facility] I PACS LVIDs 3.167 cm SSM CV [facility] I PACS LVOT diam 2.1 cm SSM CV [facility] I PACS LVPWd 1.014 cm SSM CV [facility] I PACS LV biplane EF 55.218 % [facility]SM CV FUJI PACS LV A2C EF 54.746 % SSM CV [facility] I PACS LV A4C EF 56.622 % SSM CV FUJ I PACS LV EDV A2C 54.078 ml SSM CV FU JI PACS LV EDV A4C 62.116 ml SSM CV FU JI PACS LV ESV A2C 24.472 ml SSM CV FU JI PACS LV ESV A4C 26.945 ml SSM CV FU JI PACS Anatomical Region Laterality Modality Ultrasound 10/02/2024 9:09 AM CDT Narrative 10/02/2024 11:02 AM CDT Summary * Technically difficult study. * The left ventricle is normal in size, with normal systolic function and an estimated ejection fraction of 55 % by biplane method of disks. Left ventricular wall motion is normal. * The left ventricular mass is normal with concentric remodeling. * Right ventricle is normal in size with normal systolic function. * No hemodynamically significant valve disease. Patient Info Name: Jocelyn Norman Age: 74 years : 1950 Gender: Female Ht: 65 in Wt: 270 lb BSA: 2.44 m2 HR: 99 bpm BP: 135 / 91 mmHg Heart Rhythm: Atrial Fibrillation Exam Date: 10/02/2024 9:09 AM Exam Room: [facility] Patient Status: I/P Study Site: [facility] Primary Location: [facility] EStudy Info Technical Quality: Technically Difficult Exam Type: ECHO COMPLETE W CONTRAST Indications I48.0 - Paroxysmal atrial fibrillation (HCC) Procedure(s) * A complete 2D, color Doppler, and spectral Doppler transthoracic echocardiogram was performed. * An Ultrasound Enhancing Agent (UEA) was utilized to enhance endocardial definition and opacify the left ventricle. Contrast/Agitated Saline Contrast / Saline: Definity Amount: 1.00 ml Administered By: Julisa Bonilla Reaction to Contrast: no Reason for Technically Difficult Study: body habitus, restricted mobility Staff Referring Physician: Nilam Engel Ordering Provider: Nilam Engel Attending Physician: Nilam Engel Machine Hose Cutter: Julisa Bonilla Left Ventricle Left ventricular systolic function is normal with an estimated ejection fraction of 55 % by biplane method of disks. The left ventricle is normal in size. The left ventricular mass is normal with concentric remodeling. Left ventricular segmental wall motion is normal. The left ventricular diastolic function is indeterminate. Right Ventricle The right ventricle is normal in size. Right ventricular systolic function is normal. Left Atrium The left atrium is normal in size with a left atrial volume index of 24 ml/m2 by BP MOD. Right Atrium The right atrium is not well visualized, but appears grossly normal in size. Atrial Septum Intact interatrial septum visualized by 2D and color Doppler imaging. Aortic Valve The aortic valve is not well visualized. There is no aortic valve regurgitation. There is no aortic valve stenosis with a peak velocity of 1.4 m/s, mean gradient of 4 mmHg, and aortic valve area of 2.87 cm2. Pulmonic Valve The pulmonic valve is not well visualized. There is no pulmonic valve stenosis. There is no clinically significant pulmonic regurgitation. Mitral Valve The mitral valve is normal. There is no mitral valve stenosis. There is no clinically significant mitral valve regurgitation. Tricuspid Valve The tricuspid valve is not well visualized. There is no tricuspid valve stenosis. There is no clinically significant tricuspid valve regurgitation. Unable to assess pulmonary pressures due to a lack of tricuspid and pulmonic regurgitation. Inferior Vena Cava The inferior vena cava is not well visualized and therefore the right atrial pressure is assumed to be 8 mmHg. Pericardium/Pleural There is no pericardial effusion. Aorta The aortic root at the sinus of Valsalva is normal in size measuring 2.7 cm with an index of 1.1 cm/m2. The ascending aorta is normal in size measuring 2.9 cm with an index of 1.2 cm/m2. Measurements Left Ventricular Outflow Tract Name Value Normal LVOT 2D LVOT Diameter 2.1 cm LVOT Area 3.5 cm2 LVOT Doppler LVOT Peak Velocity 1.2 m/s LVOT Peak Gradient 5 mmHg LVOT Mean Velocity 76.80 cm/s LVOT Mean Gradient 3 mmHg LVOT VTI 19.9 cm LVOT VTI/AV VTI Ratio 0.8 LVOT Stroke Volume 69 ml LVOT Stroke Volume Index 28 ml/m2 35-58 LVOT CO 6.8 l/min LVOT CI 2.8 l/min/m2 Pulmonic Valve Name Value Normal RVOT Doppler RVOT Peak Velocity 0.7 m/s RVOT Peak Gradient 2 mmHg RVOT Mean Gradient 1 mmHg PV Doppler PV Peak Velocity 0.9 m/s PV Peak Gradient 4 mmHg PV Mean Gradient 2 mmHg Mitral Valve Name Value Normal MV Doppler MV Peak Gradient 7 mmHg MV Mean Gradient 2 mmHg MV DI (VTI) 1.29 MV PHT 65 ms MV Area (PHT) 3.36 cm2 4.00-5.00 MV Area (Cont Eq VTI) 2.69 cm2 Tricuspid Valve Name Value Normal Estimated PAP/RSVP RA Pressure 8 mmHg <=5 TV Annular TDI TV Lateral Delia s' Velocity 17 cm/s 10-19 Aorta Name Value Normal Ascending Aorta Sinus of Valsalva Diameter 2.7 cm 2.4-3.6 Sinus of Valsalva Index 1.1 cm/m2 1.4-2.2 Asc Ao Diameter 2.9 cm 1.9-3.5 Asc Ao Diameter Index 1.2 cm/m2 1.0-2.2 Aortic Valve Name Value Normal AV 2D/MM AV Cusp Sep (MM) 1.7 cm AV Doppler AV Peak Velocity 1.39 m/s AV Peak Gradient 7 mmHg AV Mean Gradient 4 mmHg AV VTI 24 cm AV Area (Cont Eq VTI) 2.87 cm2 >=2.00 AV Area (Cont Eq Dante) 2.87 cm2 AV DI (VTI) 0.83 AV DI (Dante) 0.83 AV Regurgitation 2D LVOT Area 3.46 cm2 Ventricles Name Value Normal LV Dimensions 2D/MM IVS Diastolic Thickness (2D) 1.0 cm 0.6-0.9 LVID Diastole (2D) 4.5 cm 3.8-5.2 LVPW Diastolic Thickness (2D) 1.0 cm 0.6-0.9 IVS Systolic Thickness (2D) 1.1 cm LVID Systole (2D) 3.2 cm 2.2-3.5 LVPW Systolic Thickness (2D) 1.6 cm LV Mass (2D Cubed) 153 g 67-162 LV Mass Index (2D Cubed) 63 g/m2 43-95 Relative Wall Thickness (2D) 0.45 <=0.42 LV Fractional Shortening/Ejection Fraction 2D/MM LV Fractional Shortening (2D) 29 % 27-45 LV EF (2D Teicholz) 57 % 54-74 LV Diastolic Volume (4C MOD) 62 ml LV EF (4C MOD) 57 % LV Diastolic Volume (2C MOD) 54 ml LV EF (2C MOD) 55 % LV Diastolic Volume (BP MOD) 59 ml 46-106 LV Diastolic Volume Index (BP MOD) 24 ml/m2 29-61 LV Systolic Volume (BP MOD) 26 ml 14-42 LV Systolic Volume Index (BP MOD) 11 ml/m2 8-24 LV EF (BP MOD) 55 % 54-74 LV Diastolic Length (4C) 6.6 cm LV Systolic Length (4C) 5.9 cm LV Stroke Volume (4C MOD) 35 ml RV Dimensions 2D/MM RVID Diastole (2D) 2.3 cm 2.5-3.5 RVID Systole (2D) 2.1 cm RV Basal Diastolic Dimension 4.3 cm 2.5-4.1 RV Diastolic Length (4C) 7.5 cm 5.9-8.3 TAPSE 1.7 cm >=1.7 Atria Name Value Normal LA Dimensions LA Dimension (2D) 4.8 cm 2.7-3.8 LA Dimen Index (2D) 2.0 cm/m2 LA Volume (BP MOD) 58 ml LA Volume Index (BP MOD) 24 ml/m2 16-34 RA Dimensions RA Area (4C) 21 cm2 <=18 RA Area (4C) Index 8 cm2/m2 Report Signatures Finalized by Marva Lara on 10/02/2024 11:02 AM Procedure Note Marva Lara MD - 10/02/2024 Summary * Technically difficult study. * The left ventricle is normal in size, with normal systolic functionand an estimated ejection fraction of 55 % by biplane method of disks. Left ventricular wall motion is normal. * The left ventricular mass is normal with concentric remodeling. * Right ventricle is normal in size with normal systolic function. * No hemodynamically significant valve disease. Patient Info Name: Jocelyn Norman Age: 74 years : 1950 Gender: Female Ht: 65 in Wt: 270 lb BSA: 2.44 m2 HR: 99 bpm BP: 135 / 91 mmHg Heart Rhythm: Atrial Fibrillation Exam Date: 10/02/2024 9:09 AM Exam Room: [facility] Patient Status: I/P Study Site: [facility] Primary Location: [facility] EStud Info Technical Quality: Technically Difficult Exam Type: ECHO COMPLETE W CONTRAST Indications I48.0 - Paroxysmal atrial fibrillation (HCC) Procedure(s) * A complete 2D, color Doppler, and spectral Doppler transthoracic echocardiogram was performed. * An Ultrasound Enhancing Agent (UEA) was utilized to enhanceendocardial definition and opacify the left ventricle. Contrast/Agitated Saline Contrast / Saline: Definity Amount: 1.00 ml Administered By: Julisa Bonilla Reaction to Contrast: no Reason for Technically Difficult Study: body habitus, restrictedmobility Staff Referring Physician: Nilam Engel Ordering Provider: Nilam Engel Attending Physician: Nilam Engel Machine Hose Cutter: Julisa Bonilla Left Ventricle Left ventricular systolic function is normal with an estimatedejection fraction of 55 % by biplane method of disks. The left ventricle is normalin size. The left ventricular mass is normal with concentric remodeling.Left ventricular segmental wall motion is normal. The left ventriculardiastolic function is indeterminate. Right Ventricle The right ventricle is normal in size. Right ventricular systolicfunction is normal. Left Atrium The left atrium is normal in size with a left atrial volume index of24 ml/m2 by BP MOD. Right Atrium The right atrium is not well visualized, but appears grossly normal insize. Atrial Septum Intact interatrial septum visualized by 2D and color Doppler imaging. Aortic Valve The aortic valve is not well visualized. There is no aortic valve regurgitation. There is no aortic valve stenosis with a peak velocity of1.4 m/s, mean gradient of 4 mmHg, and aortic valve area of 2.87 cm2. Pulmonic Valve The pulmonic valve is not well visualized. There is no pulmonic valve stenosis. There is no clinically significant pulmonic regurgitation. Mitral Valve The mitral valve is normal. There is no mitral valve stenosis. There isno clinically significant mitral valve regurgitation. Tricuspid Valve The tricuspid valve is not well visualized. There is no tricuspidvalve stenosis. There is no clinically significant tricuspid valveregurgitation. Unable to assess pulmonary pressures due to a lack of tricuspid andpulmonic regurgitation. Inferior Vena Cava The inferior vena cava is not well visualized and therefore the rightatrial pressure is assumed to be 8 mmHg. Pericardium/Pleural There is no pericardial effusion. Aorta The aortic root at the sinus of Valsalva is normal in size measuring 2.7cm with an index of 1.1 cm/m2. The ascending aorta is normal in sizemeasuring 2.9 cm with an index of 1.2 cm/m2. Measurements Left Ventricular Outflow Tract Name Value Normal LVOT 2D LVOT Diameter 2.1 cm LVOT Area 3.5 cm2 LVOT Doppler LVOT Peak Velocity 1.2 m/s LVOT Peak Gradient 5 mmHg LVOT Mean Velocity 76.80 cm/s LVOT Mean Gradient 3 mmHg LVOT VTI 19.9 cm LVOT VTI/AV VTI Ratio 0.8 LVOT Stroke Volume 69 ml LVOT Stroke Volume Index 28 ml/m2 35-58 LVOT CO 6.8 l/min LVOT CI 2.8 l/min/m2 Pulmonic Valve Name Value Normal RVOT Doppler RVOT Peak Velocity 0.7 m/s RVOT Peak Gradient 2 mmHg RVOT Mean Gradient 1 mmHg PV Doppler PV Peak Velocity 0.9 m/s PV Peak Gradient 4 mmHg PV Mean Gradient 2 mmHg Mitral Valve Name Value Normal MV Doppler MV Peak Gradient 7 mmHg MV Mean Gradient 2 mmHg MV DI (VTI) 1.29 MV PHT 65 ms MV Area (PHT) 3.36 cm2 4.00-5.00 MV Area (Cont Eq VTI) 2.69 cm2 Tricuspid Valve Name Value Normal Estimated PAP/RSVP RA Pressure 8 mmHg <=5 TV Annular TDI TV Lateral Delia s' Velocity 17 cm/s 10-19 Aorta Name Value Normal Ascending Aorta Sinus of Valsalva Diameter 2.7 cm 2.4-3.6 Sinus of Valsalva Index 1.1 cm/m2 1.4-2.2 Asc Ao Diameter 2.9 cm 1.9-3.5 Asc Ao Diameter Index 1.2 cm/m2 1.0-2.2 Aortic Valve Name Value Normal AV 2D/MM AV Cusp Sep (MM) 1.7 cm AV Doppler AV Peak Velocity 1.39 m/s AV Peak Gradient 7 mmHg AV Mean Gradient 4 mmHg AV VTI 24 cm AV Area (Cont Eq VTI) 2.87 cm2 >=2.00 AV Area (Cont Eq Dante) 2.87 cm2 AV DI (VTI) 0.83 AV DI (Dante) 0.83 AV Regurgitation 2D LVOT Area 3.46 cm2 Ventricles Name Value Normal LV Dimensions 2D/MM IVS Diastolic Thickness (2D) 1.0 cm 0.6-0.9 LVID Diastole (2D) 4.5 cm 3.8-5.2 LVPW Diastolic Thickness (2D) 1.0 cm 0.6-0.9 IVS Systolic Thickness (2D) 1.1 cm LVID Systole (2D) 3.2 cm 2.2-3.5 LVPW Systolic Thickness (2D) 1.6 cm LV Mass (2D Cubed) 153 g 67-162 LV Mass Index (2D Cubed) 63 g/m2 43-95 Relative Wall Thickness (2D) 0.45 <=0.42 LV Fractional Shortening/Ejection Fraction 2D/MM LV Fractional Shortening (2D) 29 % 27-45 LV EF (2D Teicholz) 57 % 54-74 LV Diastolic Volume (4C MOD) 62 ml LV EF (4C MOD) 57 % LV Diastolic Volume (2C MOD) 54 ml LV EF (2C MOD) 55 % LV Diastolic Volume (BP MOD) 59 ml 46-106 LV Diastolic Volume Index (BP MOD) 24 ml/m2 29-61 LV Systolic Volume (BP MOD) 26 ml 14-42 LV Systolic Volume Index (BP MOD) 11 ml/m2 8-24 LV EF (BP MOD) 55 % 54-74 LV Diastolic Length (4C) 6.6 cm LV Systolic Length (4C) 5.9 cm LV Stroke Volume (4C MOD) 35 ml RV Dimensions 2D/MM RVID Diastole (2D) 2.3 cm 2.5-3.5 RVID Systole (2D) 2.1 cm RV Basal Diastolic Dimension 4.3 cm 2.5-4.1 RV Diastolic Length (4C) 7.5 cm 5.9-8.3 TAPSE 1.7 cm >=1.7 Atria Name Value Normal LA Dimensions LA Dimension (2D) 4.8 cm 2.7-3.8 LA Dimen Index (2D) 2.0 cm/m2 LA Volume (BP MOD) 58 ml LA Volume Index (BP MOD) 24 ml/m2 16-34 RA Dimensions RA Area (4C) 21 cm2 <=18 RA Area (4C) Index 8 cm2/m2 Report Signatures Finalized by Marva Lara on 10/02/2024 11:02 AM Nilam Engel APRN-ESTATE PLANNING DIRECTOR ECHO CUPID Final Re sult * (ABNORMAL) LIPID PROFILE (10/02/2024 6:14 AM CDT) Cholesterol Total 131 <200 mg/dL 10/02/2024 9:14 AM T [facility] HDL 31(L) >40 mg/dL 10/02/2024 9:14 AM [facility] Comment: ATP III Classification of HDL Cholesterol: <40 mg/dL: Considered a major risk factor. >60 mg/dL: Considered a negative risk factor. LDL Calculated 76 <100 mg/dL 10/02/2024 9:14 AM CDT [facility] Comment: ATP III Classification of LDL Cholesterol: <100 mg/dL: Optimal 100 - 129 mg/dL: Near Optimal/Above Optimal 130 - 159 mg/dL: Borderline High 160 - 189 mg/dL: High >190 mg/dL: Very High LDL is calculated using the Friedewald equation. Triglycerides 122 <150 mg/dL 10/02/2024 9:14 AM CDT [facility] Comment: ATP III Classification of Triglycerides: <150 mg/dL: Normal 150 - 199 mg/dL: Borderline High 200 - 400 mg/dL: High >500 mg/dL: Very High Blood BLOOD SPECIMEN / Unknown 10/02/2024 6:14 AM CDT 10/02/2024 8:53 AM CDT Isabel Willingham MD LAB - CHEMISTRY ORDERABLE S Final Result [facility] [address] [place] [address], [facility] [phone] * XR Panorex (10/01/2024 2:02 PM CDT) Anatomical Region Laterality Modality Head Radiographic Susan ging 10/01/2024 2:19 PM CDT Impressions 10/03/2024 1:35 AM CDT IMPRESSION: There is periodontal disease with mild bone loss around the root of the left mandibular second bicuspid. Report dictated by Hudson Renteria MD (vice president corporate communications). I, Magan Limon MD have personally reviewed and interpreted this examination/study. > Interpreting Provider: Magan Limon MD on 10/03/2024 1:35 AM Narrative 10/03/2024 1:35 AM CDT EXAMINATION: Panorex DATE/TIME OF EXAM: 10/01/2024 2:02 PM, LOCATION [facility] HISTORY: S09.93XA: Dental trauma, initial encounter dental instability COMPARISON: No prior study is available for comparison. FINDINGS: Several dental restorations are identified and a few teeth are absent. There is periodontal disease with mild bone loss around the root of the left mandibular second bicuspid. There is no evidence of fracture of the mandible. The temporomandibular joints are intact bilaterally. There is no evidence of any periosteal reaction. No lytic or blastic lesions seen. Procedure Note Magan Limon MD - 10/03/2024 EXAMINATION: [facility]ore[facility] DATE/TIME OF EXAM: 10/01/2024 2:02 PM, LOCATION [facility] HISTORY: S09.93XA: Dental trauma, initial encounter dental instability COMPARISON: No prior study is available for comparison. FINDINGS: Several dental restorations are identified and a few teeth are absent. There is periodontal disease with mild bone loss around the root of the left mandibular second bicuspid. There is no evidence of fracture of the mandible. The temporomandibular joints are intact bilaterally. There isno evidence of any periosteal reaction. No lytic or blastic lesions seen. IMPRESSION: There is periodontal disease with mild bone loss around the root of the left mandibular second bicuspid. Report dictated by Hudson Renteria MD (vice president corporate communications). I, Magan Limon MD have personally reviewed and interpreted this examination/study. > Interpreting Provider: Magan Limon MD on 10/03/2024 1:35 AM Vera Echevarria PROVISIONING ANALYST-DICTAPHONE MECHANIC DIAGNOSTIC IMAGING ORDERA BLES Final Result * (ABNORMAL) CBC W AUTO DIFFERENTIAL (09/30/2024 6:19 AM CDT) Only the most recent of4 resultswithin the time period is included. WBC 7.1 4.0 - 10.7 x10E9/L 09/30/2024 6:[address] [facility] RBC Count 4.06 3.90 - 5.20 x10E12/L 09/30/2024 6:[address] [facility] Hemoglobin 12.0 11.9 - 15.8 g/dL 09/30/2024 6:[address] [facility] Hematocrit 38.2 34.8 - 46.1 % 09/30/2024 6:[address] [facility] MCV 94.1 80.0 - 98.0 fL 09/30/2024 6:58 AM [facility] MCH 29.6 26.7 - 33.6 pg 09/30/2024 6:58 AM [facility] MCHC 31.4(L) 31.7 - 36.3 g/dL 09/30/2024 6:58 AM [facility] RDW-CV 13.4 11.3 - 14.8 % 09/30/2024 6:58 AM [facility] Platelet Count 170 150 - 420 x10E9/L 09/30/2024 6:58 AM [facility] MPV 10.8 7.8 - 11.4 fL 09/30/2024 6:58 AM [facility] Neutrophil % 55.3 41.0 - 74.0 % 09/30/2024 6:58 AM [facility] Lymphocyte % 26.4 17.0 - 47.0 % 09/30/2024 6:58 AM [facility] Monocyte % 11.5(H) 3.0 - 11.0 % 09/30/2024 6:58 AM [facility] Eosinophil % 5.5 0.0 - 7.0 % 09/30/2024 6:58 AM [facility] Basophil % 0.7 0.0 - 1.6 % 09/30/2024 6:58 AM [facility] Immature Granulocytes % 0.6 0.0 - 1.0 % 09/30/2024 6:58 AM [facility] Neutrophil Absolute 3.95 1.60 - 7.50 x10E9/L 09/30/2024 6:58 AM [facility] Lymphocyte Absolute 1.88 1.00 - 4.40 x10E9/L 09/30/2024 6:58 AM [facility] Monocyte Absolute 0.82 0.15 - 1.00 x10E9/L 09/30/2024 6:58 AM [facility] Eosinophil Absolute 0.39 0.00 - 0.60 x10E9/L 09/30/2024 6:58 AM [facility] Basophil Absolute 0.05 0.00 - 0.13 x10E9/L 09/30/2024 6:58 AM CDT [facility] Blood BLOOD SPECIMEN / Unknown Venipuncture / Unknown 09/30/2024 6:19 AM CDT 09/30/2024 6:52 AM CDT Sawyer Smith MD LAB - HEMATOLOGY ORDER ASHTYN Final Result Performing Organization Address City/[facility]/ZIP Co de Phone Number [facility] [address] [place] [address], [facility] [phone] * EKG 12-Lead (09/30/2024 12:32 AM CDT) Only the most recent of4 resultswithin the time period is included. Ventricular Rate 116 BPM [facility] MUSE QRS Duration ms 88 ms [facility] MUSE Q-T Interval ms 326 ms [facility] MUSE QTC Calculation (Bezet) 453 ms [facility] MUSE Calculated R [place] 10 degrees SL MUSE Calculated T [place] 43 degrees [facility] MUSE Interpretation EKG ATRIAL FIBRILLATION WITH RAPID VENTRICULAR RESPONSE ABNORMAL ECG WHEN COMPARED WITH ECG OF 28-SEP-2024 15:53, No change from last ECG Confirmed by KEHNIDE ANAYA MD ([id number]) on 10/04/2024 1:06:34 PM [facility] 09/30/2024 12:3 2 AM CDT 10/04/2024 1:06 PM CDT Toan Carrillo MD ECG ORDERABLES Edited Resu lt - Final Performing Organization Address City/[facility]/ZIP Co de Phone Number [facility] * TSH REFLEX FREE T4 (09/29/2024 5:46 AM CDT) TSH 3.173 0.350 - 4.940 uIU/mL 09/29/2024 6:59 AM CDT [facility] Blood BLOOD SPECIMEN / Unknown Lab Venipuncture / Unknown 09/29/2024 5:46 AM CDT 09/29/2024 6:13 AM CDT Nilam Engel APRN-ESTATE PLANNING DIRECTOR LAB - CHEMISTRY ORDERABL ES Final Result [facility] [address] [place] [address], [facility] [phone] * CARDIAC EKG ORDER (09/27/2024 11:36 AM CDT) Narrative 09/27/2024 11:36 AM CDT Ordered by an unspecified provider. us Scanned Document CARDIAC SERVICES ORDERABLES Fin al Result * Laceration Repair (09/27/2024 3:18 AM CDT) Narrative Mina Murillo MD - 09/27/2024 3:18 AM CDT Mina Murillo MD 09/27/2024 5:54 AM Laceration Repair Date/Time: 09/27/2024 3:18 AM Performed by: Fredi Delvalle MD Authorized by: Toan Carrillo MD Consent: Consent obtained: Verbal Consent given by: Patient Risks, benefits, and alternatives were discussed: yes Risks discussed: Infection, pain, poor cosmetic result, poor wound healing, nerve damage and need for additional repair Alternatives discussed: No treatment Roscoe protocol: Procedure explained and questions answered to patient or proxy's satisfaction: yes Relevant documents present and verified: yes Test results available: yes Imaging studies available: yes Required blood products, implants, devices, and special equipment available: yes Site/side marked: yes Patient identity confirmed: Verbally with patient, arm band and hospital-assigned identification number Anesthesia: Anesthesia method: Local infiltration Local anesthetic: Lidocaine 1% WITH epi Laceration details: Location: Face Face location: Nose Length (cm): 5 Depth (mm): 6 Pre-procedure details: Preparation: Patient was prepped and draped in usual sterile fashion Exploration: Limited defect created (wound extended): yes Hemostasis achieved with: Direct pressure Imaging outcome: foreign body not noted Contaminated: no Treatment: Area cleansed with: Povidone-iodine Amount of cleaning: Standard Irrigation solution: Sterile saline Irrigation volume: 150 Skin repair: Repair method: Sutures Suture size: 6-0 Wound skin closure material used: vicryl. Suture technique: Simple interrupted Number of sutures: 6 (4 simple interupted, 2 corner stitch) Approximation: Approximation: Close Repair type: Repair type: Simple Post-procedure details: Dressing: Open (no dressing) Procedure completion: Tolerated Toan Carrillo MD PROCEDURE/MINOR SURGICAL OR DERABLES Final Result * Laceration Repair (09/27/2024 3:17 AM CDT) Narrative Mina Murillo MD - 09/27/2024 3:17 AM CDT Mina Murillo MD 09/27/2024 5:54 AM Laceration Repair Date/Time: 09/27/2024 3:17 AM Performed by: Fredi Delvalle MD Authorized by: Toan Carrillo MD Consent: Consent obtained: Verbal Consent given by: Patient Risks, benefits, and alternatives were discussed: yes Risks discussed: Infection, pain, poor cosmetic result, need for additional repair, nerve damage and poor wound healing Alternatives discussed: No treatment Roscoe protocol: Procedure explained and questions answered to patient or proxy's satisfaction: yes Relevant documents present and verified: yes Test results available: yes Imaging studies available: yes Required blood products, implants, devices, and special equipment available: yes Site/side marked: yes Patient identity confirmed: Verbally with patient, arm band and hospital-assigned identification number Anesthesia: Anesthesia method: Local infiltration Local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
--- OUTSIDE RECORDS SUMMARY | 2024-10-28 12:15 | XMS_ITS | Data Portability ---
Author Organization JOSEPH Roberta JORDAN Address [address] [facility] [facility] [place] [address] Care Team Providers Care Drill Sharpener Name Role Phone TIMMYDAHIANA Gudino OTHER SHELBY MACKEY Orthopedic Surgeon [phone] ROSANNE GRIFFIN Primary Care Provider [phone] Assessment No assessment recorded. Plan of Treatment [...] DO Not Attach Compendium, Do Not Delete/merge, [id number] 10/28/2024 12:44:37 CMP, serum or plasma 2024 025 [email or web address] [facility], [address], [address], [place], [address], 09/03/2024 14:21:47 HbA1c (hemoglob in A1c), blood 2024 025 [email or web address] [facility], [address] [facility], [address], [place], [address], 09/03/2024 14:21:47 albumin/c reatinine , mass ratio, urine 2024 025 [email or web address] [facility], [address] [facility], [address], [place], [address], 09/03/2024 14:21:47 HbA1c (hemoglob in A1c), blood 2024 025 MIAH In-Office Order, Internal Use Only DO Not Attach Compendium DO Not Attach Compendium, Do Not Delete/merge, [id number] 04/04/2024 13:02:46 HbA1c (hemoglob in A1c), blood 2023 024 MIAH In-Office Order, Internal Use Only DO Not Attach Compendium DO Not Attach Compendium, Do Not Delete/merge, [id number] 12/12/2023 17:38:42 Referral physical therapist referral [address] (Outpatient Physical Therapy), [address], [place], [address], 09/17/2024 07:50:03 Procedures None recorded. Surgeries None recorded. Imaging electroca rdiogram 2024 025 MIAH In-Office Order, Internal Use Only DO Not Attach Compendium DO Not Attach Compendium, Do Not Delete/merge, [id number] 10/28/2024 12:55:20 MAMMO, screening , digital, bilateral [address] [facility], [address] [place], [address], 07/03/2024 07:55:14 Medication Orders Ozempic 0.25 mg or 0.5 mg (2 mg/1.5 mL) subcutane ous pen injector 2024 025 [id number], [address] [place], [address], 09/02/2024 12:25:52 lisinopri l 5 mg tablet 2023 024 [id number], [address] [place], [address], 12/12/2023 16:23:54 Patient TargetsNo targets recorded. Patient Instructions Encounter Date Encounter Id Patient Instructions Last Modified By Organization Details Last Modified Time 12/12/2023 [id number] A healthy lifestyle: care instructions Not available 12/13/2023 12:38:35 04/04/2024 [id number] A healthy lifestyle: care instructions Not available 04/04/2024 10:45:48 06/05/2024 [id number] A healthy lifestyle: care instructions Not available 06/06/2024 08:16:17 Reason for Referral Physical Therapist Referral for Impairment of balance Referring Physician: Rosanne Griffin, Income Tax Expert, Encounter Date: 09/02/2024 Results Created Date Observation Date Name Description Value Unit Range Abnormal Flag Note LastModifiedBy Organization Detail LastModifiedTime 12/12/19 24 12/12/2023 HbA1c (hemo globi n A1c), blood HbA1c 5.9 Not Available In-Office Order Internal Use Only DO Not Attach Compendium DO Not Attach Compendium, Do Not Delete/merge, [id number] 12/12/2023 16:30:10 04/04/19 25 04/04/2024 HbA1c (hemo globi n A1c), blood HbA1c 6.9% Not Available In-Office Order Internal Use Only DO Not Attach Compendium DO Not Attach Compendium, Do Not Delete/merge, [id number] 04/04/2024 11:02:30 09/03/19 25 09/03/2024 ALBUM IN/CR EATIN INE RATIO ,URIN E creatinine, urine 82.6 mg/dL notest ab. Not Available [facility] ([facility]) [address] [facility], [place], [address], 09/03/2024 11:13:12 09/03/19 25 09/03/2024 ALBUM IN/CR EATIN INE RATIO ,URIN E albumin, urine 7.6 ug/mL notest ab. Not Available [facility] ([facility]) [address] [facility], [place], [address], 09/03/2024 11:13:12 09/03/19 25 09/03/2024 ALBUM IN/CR EATIN INE RATIO ,URIN E alb/creat ratio 9 mg/g_ creat 0-29 Tatiana l: 0 - 29 Moder ately incre ased: 30 - 300 Sever noah incre ased: >300 Not Available [facility] ([facility]) [address] [facility], [place], [address], 09/03/2024 11:13:12 09/03/19 25 09/03/2024 COMP. METAB OLIC PANEL (14) glucose 222 mg/dL 70-99 above high normal Not Available [facility] ([facility]) [address] [place], [address], 09/03/2024 11:13:12 09/03/19 25 09/03/2024 COMP. METAB OLIC PANEL (14) BUN 26 mg/dL 8-27 Not Available [facility] ([facility]) [address] [place], [address], 09/03/2024 11:13:12 09/03/19 25 09/03/2024 COMP. METAB OLIC PANEL (14) creatinine 1.61 mg/dL 0.57-1 .00 above high normal Not Available [facility] ([facility]) [address] [place], [address], 09/03/2024 11:13:12 09/03/19 25 09/03/2024 COMP. METAB OLIC PANEL (14) eGFR 33 mL/mi n/1.7 3 >59 below low normal Not Available [facility] ([facility]) [address] [place], [address], 09/03/2024 11:13:12 09/03/19 25 09/03/2024 COMP. METAB OLIC PANEL (14) BUN/creatini ne ratio 16 12-28 Not Available [facility] ([facility]) [address] [facility] [place], [address], 09/03/2024 11:13:12 09/03/19 25 09/03/2024 COMP. METAB OLIC PANEL (14) sodium 135 mmol/ L 134-14 4 Not Available [facility] ([facility]) [address] [facility] [place], [address], 09/03/2024 11:13:12 09/03/19 25 09/03/2024 COMP. METAB OLIC PANEL (14) potassium 5.3 mmol/ L 3.5-5. 2 above high normal Not Available [facility] ([facility]) [address] [facility], [place], [address], 09/03/2024 11:13:12 09/03/19 25 09/03/2024 COMP. METAB OLIC PANEL (14) chloride 103 mmol/ L 96-106 Not Available [facility] ([facility]) [address] [facility] [place], [address], 09/03/2024 11:13:12 09/03/19 25 09/03/2024 COMP. METAB OLIC PANEL (14) carbon dioxide, total 19 mmol/ L 20-29 below low normal Not Available [facility] ([facility]) [address] [facility] [place], [address], 09/03/2024 11:13:12 09/03/19 25 09/03/2024 COMP. METAB OLIC PANEL (14) calcium 9.2 mg/dL 8.7-10 .3 Not Available [facility] ([facility]) [address] [facility] [place], [address], 09/03/2024 11:13:12 09/03/19 25 09/03/2024 COMP. METAB OLIC PANEL (14) protein, total 6.8 g/dL 6.0-8. 5 Not Available [facility] ([facility]) [address], [place], [address], 09/03/2024 11:13:12 09/03/19 25 09/03/2024 COMP. METAB OLIC PANEL (14) albumin 4.0 g/dL 3.8-4. 8 Not Available [facility] ([facility]) [address], [place], [address], 09/03/2024 11:13:12 09/03/19 25 09/03/2024 COMP. METAB OLIC PANEL (14) globulin, total 2.8 g/dL 1.5-4. 5 Not Available [facility] ([facility]) [address] [facility], [place], [address], 09/03/2024 11:13:12 09/03/19 25 09/03/2024 COMP. METAB OLIC PANEL (14) bilirubin, total 0.5 mg/dL 0.0-1. 2 Not Available [facility] ([facility]) [address] [facility], [place], [address], 09/03/2024 11:13:12 09/03/19 25 09/03/2024 COMP. METAB OLIC PANEL (14) alkaline phosphatase 84 IU/L 44-121 Not Available [facility] ([facility]) [address] [facility], [place], [address], 09/03/2024 11:13:12 09/03/19 25 09/03/2024 COMP. METAB OLIC PANEL (14) AST (SGOT) 32 IU/L 0-40 Not Available [facility] ([facility]) [address] [facility], [place], [address], 09/03/2024 11:13:12 09/03/19 25 09/03/2024 COMP. METAB OLIC PANEL (14) ALT (SGPT) 18 IU/L 0-32 Not Available [facility] ([facility]) [address] [facility], [place], [address], 09/03/2024 11:13:12 09/03/1909/03/2024 HEMOG LOBIN A1C hemoglobin A1C 8.1 % 4.8-5. 6 above high normal Predi abete s: 5.7 - 6.4 Diabe mary kay: >6.4 Glyce cruz contr ol for adult s with diabe mary kay: <7.0 Not Available [facility] ([facility]) [address] [facility], [place], [address], 09/03/2024 11:13:13 09/27/1909/27/2024 Urina lysis panel - Urine by Autom ated color of urine by auto Yellow text: yellow , straw Not Available Not Available 10/28/2024 12:15:55 09/27/1909/27/2024 Urina lysis panel - Urine by Autom ated clarity in urine by refractometr y automated Clear text: clear Not Available Not Available 10/28/2024 12:15:55 09/27/19 25 09/27/2024 Urina lysis panel - Urine by Autom ated glucose [presence] in urine by test strip 4+ text: normal abnormal Not Available Not Available 10/28/2024 12:15:55 09/27/1909/27/2024 Urina lysis panel - Urine by Autom ated bilirubin.to janessa [presence] in urine by test strip Negati ve text: negati ve Not Available Not Available 10/28/2024 12:15:55 09/27/1909/27/2024 Urina lysis panel - Urine by Autom ated ketones [presence] in urine by automated test strip Negati ve text: negati ve Not Available Not Available 10/28/2024 12:15:55 09/27/1909/27/2024 Urina lysis panel - Urine by Autom ated specific gravity of urine by test strip 1.017 low: 1.005h igh: 1.03 Not Available Not Available 10/28/2024 12:15:55 09/27/19 25 09/27/2024 Urina lysis panel - Urine by Autom ated hemoglobin [presence] in urine by test strip Negati ve text: negati ve Not Available Not Available 10/28/2024 12:15:55 09/27/19 25 09/27/2024 Urina lysis panel - Urine by Autom ated pH of urine by test strip 6.5 low: 5high: 8 Not Available Not Available 10/28/2024 12:15:55 09/27/1909/27/2024 Urina lysis panel - Urine by Autom ated protein [presence] in urine by test strip Negati ve text: negati ve Not Available Not Available 10/28/2024 12:15:55 09/27/19 25 09/27/2024 Urina lysis panel - Urine by Autom ated urobilinogen [mass/volume ] in urine by automated test strip Normal text: normal mg/dL Not Available Not Available 10/28/2024 12:15:55 09/27/1909/27/2024 Urina lysis panel - Urine by Autom ated nitrite [presence] in urine by test strip Positi ve text: negati ve abnormal Not Available Not Available 10/28/2024 12:15:55 09/27/19 25 09/27/2024 Urina lysis panel - Urine by Autom ated leukocyte esterase [presence] in urine by test strip Negati ve text: negati ve Not Available Not Available 10/28/2024 12:15:55 09/27/1909/27/2024 Urina lysis panel - Urine by Autom ated erythrocytes [#/area] in urine sediment by automated count 0-2 text: 0 - 5 # /hpf Not Available Not Available 10/28/2024 12:15:55 09/27/1909/27/2024 Urina lysis panel - Urine by Autom ated leukocytes [#/area] in urine sediment by automated count 0-5 text: 0 - 5 # /hpf Not Available Not Available 10/28/2024 12:15:55 09/27/19 25 09/27/2024 Urina lysis panel - Urine by Autom ated bacteria [presence] in urine by automated Trace text: none seen abnormal Not Available Not Available 10/28/2024 12:15:55 09/27/19 25 09/27/2024 Urina lysis panel - Urine by Autom ated epithelial cells.squamo us [presence] in urine by automated 0-2 text: 0 - 5 /hpf Not Available Not Available 10/28/2024 12:15:55 09/27/19 25 09/27/2024 Urina lysis panel - Urine by Autom ated mucus [presence] in urine by automated 1+ text: /lpf Not Available Not Available 10/28/2024 12:15:55 09/27/19 25 09/27/2024 Urina lysis panel - Urine by Autom ated interpretati on and review of laboratory results Abnorm al Not Available Not Available 12:15:55 09/27/19 25 09/27/2024 Drugs ident ified in Urine by Scremartin Bergin al amphetamine+ methamphetam ine [mass/volume ] in urine by screen method Negati ve text: negati ve: < 1000 NG/mL Not Available Not Available 10/28/2024 12:15:54 09/27/19 25 09/27/2024 Drugs ident ified in Urine by Scremartin Bergin al barbiturates [presence] in urine by screen method >200 NG/mL Negati ve text: negati ve: < 200 NG/mL Not Available Not Available 10/28/2024 12:15:54 09/27/19 25 09/27/2024 Drugs ident ified in Urine by Scremartin abdi benzodiazepi drake [presence] in urine by screen method >200 NG/mL Negati ve text: negati ve: < 200 NG/mL Not Available Not Available 10/28/2024 12:15:54 09/27/19 25 09/27/2024 Drugs ident ified in Urine by Scremartin Bergin al opiates [presence] in urine by screen method Negati ve text: negati ve: < 300 NG/mL Not Available Not Available 10/28/2024 12:15:54 09/27/19 25 09/27/2024 Drugs ident ified in Urine by Scremartin Bergin al benzoylecgon ine [presence] in urine by screen method Negati ve text: negati ve: < 300 NG/mL Not Available Not Available 10/28/2024 12:15:54 09/27/19 25 09/27/2024 Drugs ident ified in Urine by Scree n metho d Nomin al phencyclidin e [presence] in urine by screen method >25 NG/mL Negati ve text: negati ve: < 25 NG/mL Not Available Not Available 10/28/2024 12:15:54 09/27/19 25 09/27/2024 Drugs ident ified in Urine by Scree n metho d Nomin al cannabinoids [presence] in urine by screen method Negati ve text: negati ve: <50 NG/mL Not Available Not Available 10/28/2024 12:15:54 09/27/1909/27/2024 Drugs ident ified in Urine by Scree n metho d Nomin al methadone [presence] in urine by screen method >300 NG/mL Negati ve text: negati ve: < 300 NG/mL Not Available Not Available 10/28/2024 12:15:54 09/27/1909/27/2024 Drugs ident ified in Urine by Scree n metho d Nomin al fentanyl screen urine Negati ve text: negati ve: <1.5 NG/mL Not Available Not Available 10/28/2024 12:15:54 09/27/1909/27/2024 Drugs ident ified in Urine by Scree n metho d Nomin al Unknown Analyte The Urine [place]ox[place] logy Screen ing Panel does not screen for Propox yphene , Meprob amate, Cariso prodol , Trazod one, over-t he-cou nter medica tions and/or volati les (Aceto ne, Isopro panol, Methan ol or Ethyle ne Glycol ). Ethano l, Salicy late, Acetam inophe n, Tricyc lic Antide pressa nts and severa l therap eutic drugs may be indivi dually assaye d in serum or plasma specim en. [place]ox[place] logy testin g by the [facility] is an aid to medica l diagno sis and treatm ent of patien ts. No docume nted chain of custod y was mainta ined. Result s are intend ed to be used for clinic al purpos es only. Not Available Not Available 12:15:54 09/27/1909/2709/27/2024 Drugs ident ified in Urine by Romie Lopez al interpretati on and review of laboratory results Normal Not Available Not Available 10/02 12:15:54 09/27/19 25 09/26/2024 CBC W Auto Diffe renti al panel - Blood leukocytes [#/volume] in blood by automated count 10 text: 4.0 - 10.7 x10e9/ L Not Available Not Available 10/28/2024 12:16:11 09/27/19 25 09/26/2024 CBC W Auto Diffe renti al panel - Blood erythrocytes [#/volume] in blood by automated count 4.41 text: 3.90 - 5.20 x10e12 /L Not Available Not Available 10/28/2024 12:16:11 09/27/19 25 09/26/2024 CBC W Auto Diffe renti al panel - Blood hemoglobin [mass/volume ] in blood 13.3 g/dL low: 11.9g/ dLhigh : 15.8g/ dL Not Available Not Available 10/28/2024 12:16:11 09/27/19 25 09/26/2024 CBC W Auto Diffe renti al panel - Blood hematocrit [volume fraction] of blood by automated count 39.5 % low: 34.8%h igh: 46.1% Not Available Not Available 10/28/2024 12:16:11 09/27/19 25 09/26/2024 CBC W Auto Diffe renti al panel - Blood MCV [entitic mean volume] in red blood cells by automated count 89.6 fL low: 80fLhi gh: 98fL Not Available Not Available 10/28/2024 12:16:11 09/27/1909/26/2024 CBC W Auto Diffe renti al panel - Blood MCH [entitic mass] by automated count 30.2 pg low: 26.7pg high: 33.6pg Not Available Not Available 10/28/2024 12:16:11 09/27/19 25 09/26/2024 CBC W Auto Diffe renti al panel - Blood MCHC [entitic mass/volume] in red blood cells by automated count 33.7 g/dL low: 31.7g/ dLhigh : 36.3g/ dL Not Available Not Available 10/28/2024 12:16:11 09/27/19 25 09/26/2024 CBC W Auto Diffe renti al panel - Blood erythrocyte [distwidth] in red blood cells by automated count 13.5 % low: 11.3%h igh: 14.8% Not Available Not Available 10/28/2024 12:16:11 09/27/19 25 09/26/2024 CBC W Auto Diffe renti al panel - Blood platelets [#/volume] in blood by automated count 209 text: 150 - 420 x10e9/ L Not Available Not Available 10/28/2024 12:16:11 09/27/19 25 09/26/2024 CBC W Auto Diffe renti al panel - Blood platelet [entitic mean volume] in blood by automated count 11.1 fL low: 7.8fLh igh: 11.4fL Not Available Not Available 10/28/2024 12:16:11 09/27/19 25 09/26/2024 CBC W Auto Diffe renti al panel - Blood neutrophils/ leukocytes in blood by automated count 76.3 % low: 41%hig h: 74% high Not Available Not Available 10/28/2024 12:16:11 09/27/19 25 09/26/2024 CBC W Auto Diffe renti al panel - Blood lymphocytes/ leukocytes in blood by automated count 12.6 % low: 17%hig h: 47% low Not Available Not Available 10/28/2024 12:16:11 09/27/19 25 09/26/2024 CBC W Auto Diffe renti al panel - Blood monocytes/le ukocytes in blood by automated count 7.7 % low: 3%high : 11% Not Available Not Available 10/28/2024 12:16:11 09/27/19 25 09/26/2024 CBC W Auto Diffe renti al panel - Blood eosinophils/ leukocytes in blood by automated count 1.3 % low: 0%high : 7% Not Available Not Available 10/28/2024 12:16:11 09/27/19 25 09/26/2024 CBC W Auto Diffe renti al panel - Blood basophils/le ukocytes in blood by automated count 0.7 % low: 0%high : 1.6% Not Available Not Available 10/28/2024 12:16:11 09/27/19 25 09/26/2024 CBC W Auto Diffe renti al panel - Blood immature granulocytes /leukocytes in blood by automated count 1.4 % low: 0%high : 1% high Not Available Not Available 10/28/2024 12:16:11 09/27/19 25 09/26/2024 CBC W Auto Diffe renti al panel - Blood neutrophils [#/volume] in blood by automated count 7.64 text: 1.60 - 7.50 x10e9/ L high Not Available Not Available 10/28/2024 12:16:11 09/27/19 25 09/26/2024 CBC W Auto Diffe renti al panel - Blood lymphocytes [#/volume] in blood by automated count 1.26 text: 1.00 - 4.40 x10e9/ L Not Available Not Available 10/28/2024 12:16:11 09/27/19 25 09/26/2024 CBC W Auto Diffe renti al panel - Blood monocytes [#/volume] in blood by automated count 0.77 text: 0.15 - 1.00 x10e9/ L Not Available Not Available 10/28/2024 12:16:11 09/27/19 25 09/26/2024 CBC W Auto Diffe renti al panel - Blood eosinophils [#/volume] in blood 0.13 text: 0.00 - 0.60 x10e9/ L Not Available Not Available 10/28/2024 12:16:11 09/27/19 25 09/26/2024 CBC W Auto Diffe renti al panel - Blood basophils [#/volume] in blood by automated count 0.07 text: 0.00 - 0.13 x10e9/ L Not Available Not Available 10/28/2024 12:16:11 09/27/19 25 09/26/2024 CBC W Auto Diffe renti al panel - Blood interpretati on and review of laboratory results Abnorm al Not Available Not Available 12:16:11 09/27/19 25 09/26/2024 Gas and Carbo n monox ronald panel - Venou s blood pH of venous blood 7.48 pH low: 7.32pH high: 7.42pH high Not Available Not Available 10/28/2024 12:16:11 09/27/19 25 09/26/2024 Gas and Carbo n monox ronald panel - Venou s blood pO2 venous 42 text: 35 - 40 mmHg high Not Available Not Available 10/28/2024 12:16:11 09/27/19 25 09/26/2024 Gas and Carbo n monox ronald panel - Venou s blood pCO2 venous 27 text: 40 - 50 mmHg low Not Available Not Available 10/28/2024 12:16:11 09/27/19 25 09/26/2024 Gas and Carbo n monox ronald panel - Venou s blood bicarbonate [moles/volum e] in venous blood 20.1 mmol/ L low: 20mmol /Lhigh : 30mmol /L Not Available Not Available 10/28/2024 12:16:11 09/27/19 25 09/26/2024 Gas and Carbo n monox ronald panel - Venou s blood base excess venous -2 mmol/ L low: -2mmol /Lhigh : 2mmol/ L Not Available Not Available 10/28/2024 12:16:11 09/27/19 25 09/26/2024 Gas and Carbo n monox ronald panel - Venou s blood oxyhemoglobi n venous 70 % Not Available Not Available 12:16:11 09/27/19 25 09/26/2024 Gas and Carbo n monox ronald panel - Venou s blood deoxyhemoglo bin (hhb) venous % 27.5 % Not Available Not Available 12:16:11 09/27/19 25 09/26/2024 Gas and Carbo n monox ronald panel - Venou s blood methemoglobi n/hemoglobin .total in blood low: 0%high : 2% Not Available Not Available 10/28/2024 12:16:11 09/27/19 25 09/26/2024 Gas and Carbo n monox ronald panel - Venou s blood carboxyhemog lobin/hemogl obin.total in blood 1.7 % low: 0%high : 2% Not Available Not Available 10/28/2024 12:16:11 09/27/19 25 09/26/2024 Gas and Carbo n monox ronald panel - Venou s blood oxygen content in venous blood 13.5 mL/dL text: interp ret within clinic al contex t Not Available Not Available 10/28/2024 12:16:11 09/27/1909/26/2024 Gas and Carbo n monox ronald panel - Venou s blood hemoglobin [mass/volume ] in blood by oximetry 13.7 g/dL low: 12g/dL high: 15.6g/ dL Not Available Not Available 10/28/2024 12:16:11 09/27/1909/26/2024 Gas and Carbo n monox ronald panel - Venou s blood oxygen [partial pressure] saturation adjusted to 0.5 in venous blood 72 % low: 70% Not Available Not Available 10/28/2024 12:16:11 09/27/1909/26/2024 Gas and Carbo n monox ronald panel - Venou s blood fi O2 mixed venous 21 % Not Available Not Available 10/02 12:16:11 09/27/1909/26/2024 Gas and Carbo n monox ronald panel - Venou s blood Unknown Analyte Carbox yhemog lobin Normal Concen tratio n: Non-sm okers: 0-2%; Smoker s: 0-9%; Toxic: >20% Not Available Not Available 12:16:11 09/27/1909/26/2024 Gas and Carbo n monox ronald panel - Venou s blood interpretati on and review of laboratory results Abnorm al Not Available Not Available 12:16:11 09/27/1909/26/2024 Basic metab olic 2000 panel - Serum or Plasm a urea nitrogen [mass/volume ] in serum or plasma 25 mg/dL low: 7mg/dL high: 26mg/d L Not Available Not Available 10/28/2024 12:16:11 09/27/1909/26/2024 Basic metab olic 2000 panel - Serum or Plasm a creatinine [mass/volume ] in serum or plasma 1.66 mg/dL low: 0.56mg /dLhig h: 0.96mg /dL high Not Available Not Available 10/28/2024 12:16:11 09/27/1909/26/2024 [facility] 1999 panel - Serum or Plasm a sodium [moles/volum e] in serum or plasma 135 mmol/ L low: 136mmo l/Lhig h: 145mmo l/L low Not Available Not Available 10/28/2024 12:16:11 09/27/19 25 09/26/2024 [facility] 1999 panel - Serum or Plasm a potassium [moles/volum e] in serum or plasma 4.6 mmol/ L low: 3.5mmo l/Lhig h: 4.5mmo l/L high Not Available Not Available 10/28/2024 12:16:11 09/27/19 25 09/26/2024 [facility] 1999 panel - Serum or Plasm a chloride [moles/volum e] in serum or plasma 103 mmol/ L low: 98mmol /Lhigh : 107mmo l/L Not Available Not Available 10/28/2024 12:16:11 09/27/19 25 09/26/2024 [facility] 1999 panel - Serum or Plasm a carbon dioxide, total [moles/volum e] in serum or plasma 16 mmol/ L low: 22mmol /Lhigh : 29mmol /L low Not Available Not Available 10/28/2024 12:16:11 09/27/19 25 09/26/2024 [facility] 1999 panel - Serum or Plasm a glucose [mass/volume ] in serum or plasma 368 mg/dL low: 70mg/d Lhigh: 99mg/d L high Not Available Not Available 10/28/2024 12:16:11 09/27/1909/26/2024 [facility] 1999 panel - Serum or Plasm a calcium [moles/volum e] in serum or plasma 9.7 mg/dL low: 8.4mg/ dLhigh : 10.2mg /dL Not Available Not Available 10/28/2024 12:16:11 09/27/19 25 09/26/2024 [facility] 1999 panel - Serum or Plasm a anion gap 16 low: 6high: 16 Not Available Not Available 10/28/2024 12:16:11 09/27/19 25 09/26/2024 [facility] 1999 panel - Serum or Plasm a urea nitrogen/cre atinine [mass ratio] in serum or plasma 15 low: 7high: 23 Not Available Not Available 10/28/2024 12:16:11 09/27/19 25 09/26/2024 Basic metab olic 1999 panel - Serum or Plasm a osmolality calculated 299 text: 275 - 295 mOsm/k g high Not Available Not Available 10/28/2024 12:16:11 09/27/19 25 09/26/2024 Basic metab olic 2000 panel - Serum or Plasm a glomerular filtration rate [volume rate/area] in serum, plasma or blood by creatinine-b ased formula (CKD-epi 2020)/1.73 sq M 32 text: >=90 mL/min /1.73 m2 low Not Available Not Available 10/28/2024 12:16:11 09/27/19 25 09/26/2024 Basic metab olic 1999 panel - Serum or Plasm a Unknown Analyte Estima isac Glomer ular Filtra tion Rate (eGFR) calcul ated using the CKD-EP I Creati nine Equati on (2020) , per the [employer] tion and [place] an Societ y of Nephro logy recomm endati ons. Not Available Not Available 12:16:11 09/27/19 25 09/26/2024 Basic metab olic 1999 panel - Serum or Plasm a interpretati on and review of laboratory results Abnorm al Not Available Not Available 12:16:11 09/27/19 25 09/27/2024 ABO and Rh group [Type ] in Blood ABO and Rh group [type] in blood A POS Not Available Not Available 12:15:55 09/27/19 25 09/27/2024 Hemog lobin A1c/H emogl obin. total in Blood hemoglobin A1C/hemoglob in.total in blood 8.3 % high: 5.6% high Not Available Not Available 10/28/2024 12:15:54 09/27/19 25 09/27/2024 Hemog lobin A1c/H emogl obin. total in Blood glucose mean value [mass/volume ] in blood estimated from glycated hemoglobin 192 mg/dL HbA1c Inter preta tion: Tatiana l : < 5.7% Pre-d iabet es: 5.7-6 .4% Diabe mary kay: Equal to or great er than 6.5% Test resul ts diagn ostic of diabe mary kay shoul d be repea isac for confi rmati on. Treat ment targe t value s recom aparna d by ADA and other clini param organ izati ons shoul d be used to evalu ate metab olic contr ol in patie nts. Refer ence: [facility], [facility] [place] -2019 In patie nts 70 years and older consi eleni HbA1c targe t range of 7.0-7 .5% (Refe rence : Nisha Fortune, et al. JAMDA . 2012) The Sebia assay for the measu remen t of HbA1c is a Natio nal Glyco hemog lobin Stand ardiz ation Progr am (NGSP ) certi fied metho d. Not Available Not Available 10/28/2024 12:15:54 09/27/19 25 09/27/2024 Hemog lobin A1c/H emogl obin. total in Blood interpretati on and review of laboratory results Abnorm al Not Available Not Available 12:15:54 09/27/19 25 09/26/2024 Rubio ol [Mass /volu me] in Serum or Plasm a ethanol [mass/volume ] in serum or plasma 73 mg/dL high: 10mg/d L high Not Available Not Available 10/28/2024 12:15:53 09/27/19 25 09/26/2024 Rubio ol [Mass /volu me] in Serum or Plasm a ethanol [mass/volume ] in blood 0.073 g/dL high: 0.01g/ dL high Not Available Not Available 10/28/2024 12:15:53 09/27/19 25 09/26/2024 Rubio ol [Mass /volu me] in Serum or Plasm a Unknown Analyte Ethano l Interp <10: None Detect ed. Depres nikita of [employer]: >100 mg/dl Potent ially Critic al: >250 mg/dl Potent ially Fatal >400 mg/dl Ethano l in the patien t's blood will contri bute to the osmola r gap. Ethano l's contri bution to the osmola r gap can be estima isac by dividi ng the concen tratio n of ethano l in mg/dL by 4.6. This test is for clinic al use only and does not equal a JOSUE for legal purpos es. Not Available Not Available 12:15:53 09/27/1909/26/2024 Rubio ol [Mass /volu me] in Serum or Plasm a interpretati on and review of laboratory results Abnorm al Not Available Not Available 12:15:53 09/28/19 25 09/27/2024 Gluco se [Mass /volu me] in Arter ial blood glucose [mass/volume ] in capillary blood by glucometer 315 mg/dL low: 70mg/d Lhigh: 99mg/d L high Not Available Not Available 10/28/2024 12:26:22 09/28/19 25 09/27/2024 Gluco se [Mass /volu me] in Arter ial blood specimen source identified Arteri al/Cap illary Not Available Not Available 12:26:22 09/28/19 25 09/27/2024 Gluco se [Mass /volu me] in Arter ial blood interpretati on and review of laboratory results Abnorm al Not Available Not Available 12:26:22 09/28/19 25 09/27/2024 Gluco se [Mass /volu me] in Arter ial blood glucose [mass/volume ] in capillary blood by glucometer 315 mg/dL low: 70mg/d Lhigh: 99mg/d L high Not Available Not Available 10/28/2024 12:16:12 09/28/19 25 09/27/2024 Gluco se [Mass /volu me] in Arter ial blood specimen source identified Arteri al/Cap illary Not Available Not Available 12:16:12 09/28/19 25 09/27/2024 Gluco se [Mass /volu me] in Arter ial blood interpretati on and review of laboratory results Abnorm al Not Available Not Available 12:16:12 09/28/19 25 09/27/2024 Gluco se [Mass /volu me] in Arter ial blood glucose [mass/volume ] in capillary blood by glucometer 283 mg/dL low: 70mg/d Lhigh: 99mg/d L high Not Available Not Available 10/28/2024 12:26:22 09/28/19 25 09/27/2024 Gluco se [Mass /volu me] in Arter ial blood specimen source identified Arteri al/Cap illary Not Available Not Available 12:26:22 09/28/19 25 09/27/2024 Gluco se [Mass /volu me] in Arter ial blood interpretati on and review of laboratory results Abnorm al Not Available Not Available 12:26:22 09/28/19 25 09/27/2024 Gluco se [Mass /volu me] in Arter ial blood glucose [mass/volume ] in capillary blood by glucometer 283 mg/dL low: 70mg/d Lhigh: 99mg/d L high Not Available Not Available 10/28/2024 12:16:11 09/28/19 25 09/27/2024 Gluco se [Mass /volu me] in Arter ial blood specimen source identified Arteri al/Cap illary Not Available Not Available 12:16:11 09/28/19 25 09/27/2024 Gluco se [Mass /volu me] in Arter ial blood interpretati on and review of laboratory results Abnorm al Not Available Not Available 12:16:11 09/28/19 25 09/27/2024 Gluco se [Mass /volu me] in Arter ial blood glucose [mass/volume ] in capillary blood by glucometer 290 mg/dL low: 70mg/d Lhigh: 99mg/d L high Not Available Not Available 10/28/2024 12:26:22 09/28/19 25 09/27/2024 Gluco se [Mass /volu me] in Arter ial blood specimen source identified Arteri al/Cap illary Not Available Not Available 12:26:22 09/28/19 25 09/27/2024 Gluco se [Mass /volu me] in Arter ial blood interpretati on and review of laboratory results Abnorm al Not Available Not Available 12:26:22 09/28/19 25 09/27/2024 Gluco se [Mass /volu me] in Arter ial blood glucose [mass/volume ] in capillary blood by glucometer 290 mg/dL low: 70mg/d Lhigh: 99mg/d L high Not Available Not Available 10/28/2024 12:16:11 09/28/19 25 09/27/2024 Gluco se [Mass /volu me] in Arter ial blood specimen source identified Arteri al/Cap illary Not Available Not Available 12:16:11 09/28/19 25 09/27/2024 Gluco se [Mass /volu me] in Arter ial blood interpretati on and review of laboratory results Abnorm al Not Available Not Available 12:16:11 09/28/19 25 09/27/2024 Gluco se [Mass /volu me] in Arter ial blood glucose [mass/volume ] in capillary blood by glucometer 331 mg/dL low: 70mg/d Lhigh: 99mg/d L high Not Available Not Available 10/28/2024 12:26:22 09/28/19 25 09/27/2024 Gluco se [Mass /volu me] in Arter ial blood specimen source identified Arteri al/Cap illary Not Available Not Available 12:26:22 09/28/19 25 09/27/2024 Gluco se [Mass /volu me] in Arter ial blood interpretati on and review of laboratory results Abnorm al Not Available Not Available 12:26:22 09/28/19 25 09/27/2024 Gluco se [Mass /volu me] in Arter ial blood glucose [mass/volume ] in capillary blood by glucometer 331 mg/dL low: 70mg/d Lhigh: 99mg/d L high Not Available Not Available 10/28/2024 12:16:11 09/28/19 25 09/27/2024 Gluco se [Mass /volu me] in Arter ial blood specimen source identified Arteri al/Cap illary Not Available Not Available 12:16:11 09/28/19 25 09/27/2024 Gluco se [Mass /volu me] in Arter ial blood interpretati on and review of laboratory results Abnorm al Not Available Not Available 12:16:11 09/28/19 25 09/27/2024 Gluco se [Mass /volu me] in Arter ial blood glucose [mass/volume ] in capillary blood by glucometer 321 mg/dL low: 70mg/d Lhigh: 99mg/d L high Not Available Not Available 10/28/2024 12:26:22 09/28/19 25 09/27/2024 Gluco se [Mass /volu me] in Arter ial blood specimen source identified Arteri al/Cap illary Not Available Not Available 12:26:22 09/28/19 25 09/27/2024 Gluco se [Mass /volu me] in Arter ial blood interpretati on and review of laboratory results Abnorm al Not Available Not Available 12:26:22 09/28/19 25 09/27/2024 Gluco se [Mass /volu me] in Arter ial blood glucose [mass/volume ] in capillary blood by glucometer 321 mg/dL low: 70mg/d Lhigh: 99mg/d L high Not Available Not Available 10/28/2024 12:16:11 09/28/19 25 09/27/2024 Gluco se [Mass /volu me] in Arter ial blood specimen source identified Arteri al/Cap illary Not Available Not Available 12:16:11 09/28/19 25 09/27/2024 Gluco se [Mass /volu me] in Arter ial blood interpretati on and review of laboratory results Abnorm al Not Available Not Available 12:16:11 09/28/19 25 09/27/2024 Blood type and Indir ect antib harris scree n panel - Blood blood group antibody screen [presence] in serum or plasma NEG Not Available Not Available 10/02 12:26:22 09/28/19 25 09/27/2024 Blood type and Indir ect antib harris scree n panel - Blood ABO and Rh group [type] in blood A POS Not Available Not Available 12:26:22 06/27/09/27/2024 Blood type and Indir ect antib h[facility] scree n panel - Blood blood group antibody screen [presence] in serum or plasma NEG Not Available Not Available 10/02 12:16:11 09/28/19 25 09/27/2024 Blood type and Indir ect antib harris scree n panel - Blood ABO and Rh group [type] in blood A POS Not Available Not Available 12:16:11 09/28/19 25 09/27/2024 Creat inine [Mass /volu me] in Blood creatinine [mass/volume ] in blood 1.8 mg/dL low: 0.6mg/ dLhigh : 1.3mg/ dL high Not Available Not Available 10/28/2024 12:26:22 09/28/19 25 09/27/2024 Creat inine [Mass /volu me] in Blood specimen source identified LEONARDO Not Available Not Available 0 10/28/2024 12:26:22 09/28/19 25 09/27/2024 Creat inine [Mass /volu me] in Blood interpretati on and review of laboratory results Abnorm al Not Available Not Available 12:26:22 09/28/19 25 09/27/2024 Creat inine [Mass /volu me] in Blood creatinine [mass/volume ] in blood 1.8 mg/dL low: 0.6mg/ dLhigh : 1.3mg/ dL high Not Available Not Available 10/28/2024 12:15:55 09/28/19 25 09/27/2024 Creat inine [Mass /volu me] in Blood glomerular filtration rate [volume rate/area] in serum, plasma or blood by creatinine-b ased formula (CKD-epi 2020)/1.73 sq M 29 text: >90 mL/min /1.73 m2 low Not Available Not Available 10/28/2024 12:15:55 09/28/19 25 09/27/2024 Creat inine [Mass /volu me] in Blood specimen source identified LEONARDO Not Available Not Available 0 10/28/2024 12:15:55 09/28/19 25 09/27/2024 Creat inine [Mass /volu me] in Blood interpretati on and review of laboratory results Abnorm al Not Available Not Available 12:15:55 09/29/19 25 09/28/2024 Gluco se [Mass /volu [...] 10/28/2024 12:16:12 09/29/19 25 09/28/2024 Basic metab [facility] 1999 panel - Serum or Plasm a sodium [moles/volum e] in serum or plasma 133 mmol/ L low: 136mmo l/Lhig h: 145mmo l/L low Not Available Not Available 10/28/2024 12:16:12 09/29/19 25 09/28/2024 Basic [facility] [place] 1999 panel - Serum or Plasm a potassium [moles/volum e] in serum or plasma 4.9 mmol/ L low: 3.5mmo l/Lhig h: 4.5mmo l/L high Not Available Not Available 10/28/2024 12:16:12 09/29/19 25 09/28/2024 Basic [facility] [place] 1999 panel - Serum or Plasm a chloride [moles/volum e] in serum or plasma 105 mmol/ L low: 98mmol /Lhigh : 107mmo l/L Not Available Not Available 10/28/2024 12:16:12 09/29/19 25 09/28/2024 [facility] 1999 panel - Serum or Plasm a carbon dioxide, total [moles/volum e] in serum or plasma 21 mmol/ L low: 22mmol /Lhigh : 29mmol /L low Not Available Not Available 10/28/2024 12:16:12 09/29/19 25 09/28/2024 [facility] 1999 panel - Serum or Plasm a glucose [mass/volume ] in serum or plasma 164 mg/dL low: 70mg/d Lhigh: 99mg/d L high Not Available Not Available 10/28/2024 12:16:12 09/29/19 25 09/28/2024 Basic [facility] [place] 1999 panel - Serum or Plasm a calcium [moles/volum e] in serum or plasma 8.5 mg/dL low: 8.4mg/ dLhigh : 10.2mg /dL Not Available Not Available 10/28/2024 12:16:12 09/29/19 25 09/28/2024 Basic [facility] [place] 1999 panel - Serum or Plasm a [...] 09/29/19 25 09/28/2024 CBC W Auto Diffe kavitha al panel [...] 98fL Not Available Not Available 10/28/2024 12:16:12 09/29/1909/28/2024 CBC W Auto Diffe renti al panel [...] 14.8% Not Available Not Available 10/28/2024 12:16:12 09/29/1909/28/2024 CBC W Auto Diffe renti al panel - Blood platelets [#/volume] in blood by automated count 143 text: 150 - 420 x10e9/ L low Not Available Not Available 10/28/2024 12:16:12 09/29/19 25 09/28/2024 CBC W Auto Diffe renti al panel - Blood platelet [entitic mean volume] in blood by automated count 11 fL low: 7.8fLh igh: 11.4fL Not Available Not Available 10/28/2024 12:16:12 09/29/1909/28/2024 CBC W Auto Diffe renti al panel [...] 1% Not Available Not Available 10/28/2024 12:16:12 09/29/1909/28/2024 CBC W Auto Diffe renti al panel - Blood neutrophils [#/volume] in blood by automated count 5.23 text: 1.60 - 7.50 x10e9/ L Not Available Not Available 10/28/2024 12:16:12 09/29/1909/28/2024 CBC W Auto Diffe renti al panel - Blood lymphocytes [#/volume] in blood by automated count 2 text: 1.00 - 4.40 x10e9/ L Not Available Not Available 10/28/2024 12:16:12 09/29/1909/28/2024 CBC W Auto Diffe renti al panel [...] l/L Not Available Not Available 10/28/2024 12:16:12 09/29/1909/28/2024 [employer] [facility] 1999 panel - Serum or Plasm a carbon dioxide, total [moles/volum e] in serum or plasma 22 mmol/ L low: 22mmol /Lhigh : 29mmol /L Not Available Not Available 10/28/2024 12:16:12 09/29/19 25 09/28/2024 [employer] [facility] 1999 panel - Serum or Plasm a glucose [mass/volume ] in serum or plasma 170 mg/dL low: 70mg/d Lhigh: 99mg/d L high Not Available Not Available 10/28/2024 12:16:12 09/29/19 25 09/28/2024 [employer] [facility] 1999 panel - Serum or Plasm a calcium [moles/volum e] in serum or plasma 8.7 mg/dL low: 8.4mg/ dLhigh : 10.2mg /dL Not Available Not Available 10/28/2024 12:16:12 09/29/19 25 09/28/2024 [employer] [facility] 1999 panel - Serum or Plasm a anion gap 7 low: 6high: 16 Not Available Not Available 10/28/2024 12:16:12 09/29/1909/28/2024 [employer] [facility] 1999 panel - Serum or Plasm a urea nitrogen/cre atinine [mass ratio] in serum or plasma 14 low: 7high: 23 Not Available Not Available 10/28/2024 12:16:12 09/29/1909/28/2024 [employer] [facility] 1999 panel - Serum or Plasm a osmolality calculated 289 text: 275 - 295 mOsm/k g Not Available Not Available 10/28/2024 12:16:12 09/29/19 25 09/28/2024 [employer] [facility] 1999 panel - Serum or Plasm [...] high Not Available Not Available 10/28/2024 12:16:13 09/30/1909/29/2024 Gluco se [Mass /volu me] in Arter ial blood specimen source identified Arteri al/Cap illary Not Available Not Available 12:16:13 09/30/1909/29/2024 Gluco se [Mass /volu me] in Arter ial blood interpretati on and review of laboratory results Abnorm al Not Available Not Available 12:16:13 09/30/1909/29/2024 Basic metab olic 1999 panel - Serum or Plasm a urea nitrogen [mass/volume ] in serum or plasma 25 mg/dL low: 7mg/dL high: 26mg/d L Not Available Not Available 10/28/2024 12:16:13 09/30/1909/29/2024 Basic metab olic 1999 panel - Serum or Plasm a creatinine [mass/volume ] in serum or plasma 1.55 mg/dL low: 0.56mg /dLhig h: 0.96mg /dL high Not Available Not Available 10/28/2024 12:16:13 09/30/1909/29/2024 [...] l/L Not Available Not Available 10/28/2024 12:16:13 09/30/1909/29/2024 [...] high Not Available Not Available 10/28/2024 12:16:13 09/30/1909/29/2024 [...] endati ons. Not Available Not Available 12:16:13 09/30/1909/29/2024 Basic metab olic 2000 panel [...] Available Not Available 12:16:13 09/30/19 25 09/29/2024 Phosp hate [Mass [...] Not Available 10/28/2024 12:16:13 09/30/19 25 09/29/2024 Magne sium [Mass /volu me] in Serum or Plasm a interpretati on and review of laboratory results Normal Not Available Not Available 10/02 12:16:13 09/30/19 25 09/29/2024 Basic metab olic [...] Available Not Available 10/28/2024 12:16:13 09/30/1909/29/2024 Basic [facility] [place] 1999 panel - Serum or Plasm a glucose [mass/volume ] in serum or plasma 216 mg/dL low: 70mg/d Lhigh: 99mg/d L high Not Available Not Available 10/28/2024 12:16:13 09/30/19 25 09/29/2024 [facility] 1999 panel - Serum or Plasm a calcium [moles/volum e] in serum or plasma 8.8 mg/dL low: 8.4mg/ dLhigh : 10.2mg /dL Not Available Not Available 10/28/2024 12:16:13 09/30/1909/29/2024 [facility] 1999 panel - Serum or Plasm a anion gap 7 low: 6high: 16 Not Available Not Available 10/28/2024 12:16:13 09/30/1909/29/2024 [facility] 1999 panel - Serum or Plasm a urea nitrogen/cre atinine [mass ratio] in serum or plasma 16 low: 7high: 23 Not Available Not Available 10/28/2024 12:16:13 09/30/1909/29/2024 [facility] 1999 panel - Serum or Plasm a osmolality calculated 295 text: 275 - 295 mOsm/k g Not Available Not Available 10/28/2024 12:16:13 09/30/1909/29/2024 [facility] 1999 panel - Serum or Plasm a glomerular filtration rate [volume rate/area] in serum, plasma or blood by creatinine-b ased formula (CKD-epi 2020)/1.73 sq M 28 text: >=90 mL/min /1.73 m2 low Not Available Not Available 10/28/2024 12:16:13 09/30/1909/29/2024 [facility] [facility] 1999 panel - Serum or Plasm a Unknown Analyte Estima isac Glomer ular Filtra tion Rate (eGFR) calcul ated using the CKD-EP I Creati nine Equati on (2020) , per the [employer] and [place] [employer] of Nephro logy recomm endati ons. Not Available Not Available 12:16:13 09/30/1909/29/2024 Basic metab olic 2000 panel [...] uIU/mL Not Available Not Available 10/28/2024 12:15:55 09/30/1909/29/2024 Thyro tropi n [Unit s/vol ume] in [...] 46.1% Not Available Not Available 10/28/2024 12:16:12 09/30/1909/29/2024 [...] 33.6pg Not Available Not Available 10/28/2024 12:16:12 09/30/19 [...] 74% Not Available Not Available 10/28/2024 12:16:12 09/30/19 25 09/29/2024 CBC W Auto Diffe renti al panel - Blood lymphocytes/ leukocytes in blood by automated count 22.9 % low: 17%hig h: 47% Not Available Not Available 10/28/2024 12:16:12 09/30/19 25 09/29/2024 CBC W Auto Diffe renti al panel - Blood monocytes/le ukocytes in blood by automated count 11.6 % low: 3%high : 11% high Not Available Not Available 10/28/2024 12:16:12 09/30/19 25 09/29/2024 CBC W Auto Diffe renti al panel - Blood eosinophils/ leukocytes in blood by automated count 4.6 % low: 0%high : 7% Not Available Not Available 10/28/2024 12:16:12 09/30/19 [...] 1% Not Available Not Available 10/28/2024 12:16:12 09/30/19 [...] Auto Diffe kavitha al panel - Blood basophils [#/volume] in [...] Not Available 10/28/2024 12:16:14 10/01/19 25 09/30/2024 [facility] 1999 panel - Serum or Plasm a potassium [moles/volum e] in serum or plasma 4.9 mmol/ L low: 3.5mmo l/Lhig h: 4.5mmo l/L high Not Available Not Available 10/28/2024 12:16:14 10/01/19 25 09/30/2024 [facility] 1999 panel - Serum or Plasm a chloride [moles/volum e] in serum or plasma 104 mmol/ L low: 98mmol /Lhigh : 107mmo l/L Not Available Not Available 10/28/2024 12:16:14 10/01/19 25 09/30/2024 [facility] 1999 panel - Serum or Plasm a carbon dioxide, total [moles/volum e] in serum or plasma 20 mmol/ L low: 22mmol /Lhigh : 29mmol /L low Not Available Not Available 10/28/2024 12:16:14 10/01/19 25 09/30/2024 [facility] 1999 panel - Serum or Plasm a glucose [mass/volume ] in serum or plasma 292 mg/dL low: 70mg/d Lhigh: 99mg/d L high Not Available Not Available 10/28/2024 12:16:14 10/01/19 25 09/30/2024 [facility] 1999 panel - Serum or Plasm a calcium [moles/volum e] in serum or plasma 9.2 mg/dL low: 8.4mg/ dLhigh : 10.2mg /dL Not Available Not Available 10/28/2024 12:16:14 10/01/19 25 09/30/2024 [facility] 1999 panel - Serum or Plasm a anion gap 8 low: 6high: 16 Not Available Not Available 10/28/2024 12:16:14 10/01/19 25 09/30/2024 [facility] 1999 panel - Serum or Plasm a [...] al/Cap illary Not Available Not Available 12:16:14 10/01/1909/30/2024 Gluco se [Mass /volu me] in [...] Not Available 10/02 12:16:13 10/01/19 25 09/30/2024 [facility] 1999 panel - Serum or Plasm a urea nitrogen [mass/volume ] in serum or plasma 24 mg/dL low: 7mg/dL high: 26mg/d L Not Available Not Available 10/28/2024 12:16:13 10/01/19 25 09/30/2024 [facility] 1999 panel - Serum or Plasm a creatinine [mass/volume ] in serum or plasma 1.45 mg/dL low: 0.56mg /dLhig h: 0.96mg /dL high Not Available Not Available 10/28/2024 12:16:13 10/01/19 25 09/30/2024 [facility] 1999 panel - Serum or Plasm a sodium [moles/volum e] in serum or plasma 136 mmol/ L low: 136mmo l/Lhig h: 145mmo l/L Not Available Not Available 10/28/2024 12:16:13 10/01/1909/30/2024 [facility] 1999 panel - Serum or Plasm a potassium [moles/volum e] in serum or plasma 5.3 mmol/ L low: 3.5mmo l/Lhig h: 4.5mmo l/L high Not Available Not Available 10/28/2024 12:16:13 10/01/19 25 09/30/2024 [facility] 1999 panel - Serum or Plasm a chloride [moles/volum e] in serum or plasma 107 mmol/ L low: 98mmol /Lhigh : 107mmo l/L Not Available Not Available 10/28/2024 12:16:13 10/01/19 25 09/30/2024 [facility] 1999 panel - Serum or Plasm a [...] Available 10/28/2024 12:16:13 10/01/19 25 09/30/2024 [facility] [place] [facility] 1999 panel - Serum or Plasm a glomerular filtration rate [volume rate/area] in serum, plasma or blood by creatinine-b ased formula (CKD-epi 2020)/1.73 sq M 38 text: >=90 mL/min /1.73 m2 low Not Available Not Available 10/28/2024 12:16:13 10/01/19 25 09/30/2024 [facility] [place] [facility] 1999 panel - Serum or Plasm a Unknown Analyte Estima isac Glomer ular Filtra tion Rate (eGFR) calcul ated using the CKD-EP I Creati nine Equati on (2020) , per the [employer] and [place] [employer] y of Nephro logy recomm endati ons. Not Available Not Available 12:16:13 10/01/19 25 09/30/2024 Basic metab olic 2000 panel - Serum or Plasm a interpretati on and review of laboratory results Abnorm al Not Available Not Available 12:16:13 10/01/1909/30/2024 CBC W Auto Diffe renti al panel - Blood leukocytes [#/volume] in blood by automated count 7.1 text: 4.0 - 10.7 x10e9/ L Not Available Not Available 10/28/2024 12:15:54 10/01/1909/30/2024 CBC W Auto Diffe renti al panel - Blood erythrocytes [#/volume] in blood by automated count 4.06 text: 3.90 - 5.20 x10e12 /L Not Available Not Available 10/28/2024 12:15:54 10/01/1909/30/2024 CBC W Auto Diffe renti al panel - Blood hemoglobin [mass/volume ] in blood 12 g/dL low: 11.9g/ dLhigh : 15.8g/ dL Not Available Not Available 10/28/2024 12:15:54 10/01/1909/30/2024 CBC W Auto Diffe renti al panel - Blood hematocrit [volume fraction] of blood by automated count 38.2 % low: 34.8%h igh: 46.1% Not Available Not Available 10/28/2024 12:15:54 10/01/1909/30/2024 CBC W Auto Diffe renti al panel - Blood MCV [entitic mean volume] in red blood cells by automated count 94.1 fL low: 80fLhi gh: 98fL Not Available Not Available 10/28/2024 12:15:54 10/01/1909/30/2024 CBC W Auto Diffe renti al panel - Blood MCH [entitic mass] by automated count 29.6 pg low: 26.7pg high: 33.6pg Not Available Not Available 10/28/2024 12:15:54 10/01/1909/30/2024 [...] 14.8% Not Available Not Available 10/28/2024 12:15:54 10/01/19 [...] 11.4fL Not Available Not Available 10/28/2024 12:15:54 10/01/19 [...] 47% Not Available Not Available 10/28/2024 12:15:54 10/01/19 25 09/30/2024 CBC W Auto Diffe renti al panel - Blood monocytes/le ukocytes in blood by automated count 11.5 % low: 3%high : 11% high Not Available Not Available 10/28/2024 12:15:54 10/01/19 [...] 1% Not Available Not Available 10/28/2024 12:15:54 10/01/19 [...] Abnorm al Not Available Not Available 12:15:54 10/01/19 25 09/30/2024 Gluco se [Mass /volu [...] 12:16:14 10/02/19 25 10/01/2024 Basic metab olic 1999 panel - Serum or Plasm a potassium [moles/volum e] in serum or plasma 4.9 mmol/ L low: 3.5mmo l/Lhig h: 4.5mmo l/L high Not Available Not Available 10/28/2024 12:16:14 10/02/19 25 10/01/2024 Basic metab olic 1999 panel - Serum or Plasm a chloride [moles/volum e] in serum or plasma 103 mmol/ L low: 98mmol /Lhigh : 107mmo l/L Not Available Not Available 10/28/2024 12:16:14 10/02/19 25 10/01/2024 Basic metab olic 1999 panel - Serum or Plasm a carbon dioxide, total [moles/volum e] in serum or plasma 23 mmol/ L low: 22mmol /Lhigh : 29mmol /L Not Available Not Available 10/28/2024 12:16:14 10/02/19 25 10/01/2024 Basic metab ic 1999 panel - Serum or Plasm a glucose [mass/volume ] in serum or plasma 205 mg/dL low: 70mg/d Lhigh: 99mg/d L high Not Available Not Available 10/28/2024 12:16:14 10/02/19 25 10/01/2024 Basic metab olic 1999 panel - Serum or Plasm a calcium [moles/volum e] in serum or plasma 9 mg/dL low: 8.4mg/ dLhigh : 10.2mg /dL Not Available Not Available 10/28/2024 12:16:14 10/02/19 25 10/01/2024 Basic metab olic 1999 panel - Serum or Plasm a anion gap 8 low: 6high: 16 Not Available Not Available 10/28/2024 12:16:14 10/02/19 25 10/01/2024 Basic metab olic 1999 panel - Serum or Plasm a urea nitrogen/cre atinine [mass ratio] in serum or plasma 19 low: 7high: 23 Not Available Not Available 10/28/2024 12:16:14 10/02/19 25 10/01/2024 Basic metab olic 1999 panel - Serum [...] Not Available 10/02 12:16:15 10/03/19 25 10/02/2024 [facility] 1999 panel - Serum or Plasm a urea nitrogen [mass/volume ] in serum or plasma 27 mg/dL low: 7mg/dL high: 26mg/d L high Not Available Not Available 10/28/2024 12:16:15 10/03/19 25 10/02/2024 Basic [facility] 1999 panel - Serum or Plasm a creatinine [mass/volume ] in serum or plasma 1.56 mg/dL low: 0.56mg /dLhig h: 0.96mg /dL high Not Available Not Available 10/28/2024 12:16:15 10/03/19 25 10/02/2024 [facility] 1999 panel - Serum or Plasm a sodium [moles/volum e] in serum or plasma 133 mmol/ L low: 136mmo l/Lhig h: 145mmo l/L low Not Available Not Available 10/28/2024 12:16:15 10/03/19 25 10/02/2024 [facility] 1999 panel - Serum or Plasm a potassium [moles/volum e] in serum or plasma 4.6 mmol/ L low: 3.5mmo l/Lhig h: 4.5mmo l/L high Not Available Not Available 10/28/2024 12:16:15 10/03/19 25 10/02/2024 [facility] 1999 panel - Serum or Plasm a chloride [moles/volum e] in serum or plasma 104 mmol/ L low: 98mmol /Lhigh : 107mmo l/L Not Available Not Available 10/28/2024 12:16:15 10/03/19 25 10/02/2024 [facility] 1999 panel - Serum or Plasm a [...] dL Not Available Not Available 10/28/2024 12:15:53 10/03/1910/02/2024 Lipid 1996 panel - Serum or Plasm a cholesterol in HDL [mass/volume ] in serum or plasma 31 mg/dL low: 40mg/d L low ATP III Class ifica tion of HDL Ange stero l: <40 mg/dL : Consi dered a major risk facto r. >60 mg/dL : Consi dered a negat liza risk facto r. Not Available Not Available 10/28/2024 12:15:53 10/03/1910/02/2024 Lipid 1996 panel - Serum or Plasm [...] low Not Available Not Available 10/28/2024 12:16:17 10/04/1910/03/2024 CBC panel - Blood by Autom ated count MCV [entitic mean volume] in red blood cells by automated count 89.6 fL low: 80fLhi gh: 98fL Not Available Not Available 10/28/2024 12:16:17 10/04/19 25 10/03/2024 CBC panel - Blood by Autom ated count MCH [entitic mass] by automated count 30.6 pg low: 26.7pg high: 33.6pg Not Available Not Available 10/28/2024 12:16:17 10/04/1910/03/2024 CBC panel - Blood by Autom ated count MCHC [entitic mass/volume] in red blood cells by automated count 34.1 g/dL low: 31.7g/ dLhigh : 36.3g/ dL Not Available Not Available 10/28/2024 12:16:17 10/04/1910/03/2024 CBC panel - Blood by Autom ated count erythrocyte [distwidth] in red blood cells by automated count 13.8 % low: 11.3%h igh: 14.8% Not Available Not Available 10/28/2024 12:16:17 10/04/1910/03/2024 CBC panel - Blood by Autom ated [...] 2% Not Available Not Available 10/28/2024 12:15:55 10/04/19 25 10/03/2024 [facility] mon[facility] ronald panel - Venou s blood carboxyhemog lobin/hemogl obin.total in blood 1.8 % low: 0%high : 2% Not Available Not Available 10/28/2024 12:15:55 10/04/19 25 10/03/2024 Gas and Carbo n monox ronald panel - Venou s blood oxygen content in venous blood 9.9 mL/dL text: interp ret within clinic al contex t Not Available Not Available 10/28/2024 12:15:55 10/04/19 25 10/03/2024 Gas and Car[facility] monox ronald panel - Venou s blood hemoglobin [mass/volume ] in blood by oximetry 11.6 g/dL low: 12g/dL high: 15.6g/ dL low Not Available Not Available 10/28/2024 12:15:55 10/04/19 25 10/03/2024 Gas and [facility] monox ronald panel - Venou s blood oxygen [partial pressure] saturation adjusted to 0.5 in venous blood 63 % low: 70% low Not Available Not Available 10/28/2024 12:15:55 10/04/19 25 10/03/2024 Gas and Carbo n monox ronald panel - Venou s blood fi O2 mixed venous 21 % Not Available Not Available 10/02 12:15:55 10/04/19 25 10/03/2024 Gas and Carbo n monox ronald panel - Venou s blood Unknown Analyte Carbox yhemog lobin Normal Concen tratio n: Non-sm okers: 0-2%; Smoker s: 0-9%; Toxic: >20% Not Available Not Available 12:15:55 10/04/19 25 10/03/2024 Gas and Carbo n monox ronald panel - Venou s blood interpretati on and review of laboratory results Abnorm al Not Available Not Available 12:15:55 10/04/19 25 10/03/2024 Blood type and Indir [...] . Not Available Not Available 10/28/2024 12:15:54 10/04/19 [...] , it is 0.8-1. 2 ng/mL. The pepe brewer of [employer] has stated [...] 12:16:16 10/04/19 25 10/03/2024 Basic metab olic 2000 [...] Not Available 10/28/2024 12:16:15 10/04/19 25 10/03/2024 [facility] 1999 panel - Serum or Plasm a chloride [moles/volum e] in serum or plasma 103 mmol/ L low: 98mmol /Lhigh : 107mmo l/L Not Available Not Available 10/28/2024 12:16:15 10/04/19 25 10/03/2024 [facility] 1999 panel - Serum or Plasm a carbon dioxide, total [moles/volum e] in serum or plasma 24 mmol/ L low: 22mmol /Lhigh : 29mmol /L Not Available Not Available 10/28/2024 12:16:15 10/04/19 25 10/03/2024 [facility] 1999 panel - Serum or Plasm a glucose [mass/volume ] in serum or plasma 201 mg/dL low: 70mg/d Lhigh: 99mg/d L high Not Available Not Available 10/28/2024 12:16:15 10/04/19 25 10/03/2024 [facility] 1999 panel - Serum or Plasm a calcium [moles/volum e] in serum or plasma 8.9 mg/dL low: 8.4mg/ dLhigh : 10.2mg /dL Not Available Not Available 10/28/2024 12:16:15 10/04/19 25 10/03/2024 [facility] 1999 panel - Serum or Plasm a anion gap 6 low: 6high: 16 Not Available Not Available 10/28/2024 12:16:15 10/04/19 25 10/03/2024 [facility] 1999 panel - Serum or Plasm a urea nitrogen/cre atinine [mass ratio] in serum or plasma 18 low: 7high: 23 Not Available Not Available 10/28/2024 12:16:15 10/04/19 25 10/03/2024 [facility] 1999 panel - Serum or Plasm a osmolality calculated 288 text: 275 - 295 mOsm/k g Not Available Not Available 10/28/2024 12:16:15 10/04/19 25 10/03/2024 [facility] - Serum or Plasm a glomerular filtration rate [volume rate/area] in serum, plasma or blood by creatinine-b ased formula (CKD-epi 2020)/1.73 sq M 32 text: >=90 mL/min /1.73 [...] 8 Not Available Not Available 10/28/2024 12:15:54 10/05/1910/04/2024 Urina lysis panel - Urine by Autom ated protein [presence] in urine by test strip Trace text: negati ve abnormal Not Available Not Available 10/28/2024 12:15:54 10/05/1910/04/2024 Urina lysis panel - Urine by Autom [...] Not Available 10/28/2024 12:16:17 10/06/19 25 10/05/2024 [facility] 1999 panel - Serum or Plasm a sodium [moles/volum e] in serum or plasma 133 mmol/ L low: 136mmo l/Lhig h: 145mmo l/L low Not Available Not Available 10/28/2024 12:16:17 10/06/19 25 10/05/2024 [facility] 1999 panel - Serum or Plasm a potassium [moles/volum e] in serum or plasma 4.2 mmol/ L low: 3.5mmo l/Lhig h: 4.5mmo l/L Not Available Not Available 10/28/2024 12:16:17 10/06/19 25 10/05/2024 [facility] 1999 panel - Serum or Plasm a chloride [moles/volum e] in serum or plasma 107 mmol/ L low: 98mmol /Lhigh : 107mmo l/L Not Available Not Available 10/28/2024 12:16:17 10/06/19 25 10/05/2024 [facility] 1999 panel - Serum or Plasm a carbon dioxide, total [moles/volum e] in serum or plasma 18 mmol/ L low: 22mmol /Lhigh : 29mmol /L low Not Available Not Available 10/28/2024 12:16:17 10/06/19 25 10/05/2024 [facility] 1999 panel - Serum or Plasm a glucose [mass/volume ] in serum or plasma 150 mg/dL low: 70mg/d Lhigh: 99mg/d L high Not Available Not Available 10/28/2024 12:16:17 10/06/19 25 10/05/2024 [facility] 1999 panel - Serum or Plasm a [...] Not Available 10/28/2024 12:16:18 10/08/19 25 10/07/2024 [facility] 1999 panel - Serum or Plasm a creatinine [mass/volume ] in serum or plasma 1.17 mg/dL low: 0.56mg /dLhig h: 0.96mg /dL high Not Available Not Available 10/28/2024 12:16:18 10/08/19 25 10/07/2024 [facility] 1999 panel - Serum or Plasm a sodium [moles/volum e] in serum or plasma 136 mmol/ L low: 136mmo l/Lhig h: 145mmo l/L Not Available Not Available 10/28/2024 12:16:18 10/08/19 25 10/07/2024 [facility] 1999 panel - Serum or Plasm a potassium [moles/volum e] in serum or plasma 4.6 mmol/ L low: 3.5mmo l/Lhig h: 4.5mmo l/L high Not Available Not Available 10/28/2024 12:16:18 10/08/19 25 10/07/2024 [facility] 1999 panel - Serum or Plasm a chloride [moles/volum e] in serum or plasma 108 mmol/ L low: 98mmol /Lhigh : 107mmo l/L high Not Available Not Available 10/28/2024 12:16:18 10/08/19 25 10/07/2024 [facility] 1999 panel - Serum or Plasm a carbon dioxide, total [moles/volum e] in serum or plasma 24 mmol/ L low: 22mmol /Lhigh : 29mmol /L Not Available Not Available 10/28/2024 12:16:18 10/08/19 25 10/07/2024 [facility] 1999 panel - Serum or Plasm a glucose [mass/volume ] in serum or plasma 178 mg/dL low: 70mg/d Lhigh: 99mg/d L high Not Available Not Available 10/28/2024 12:16:18 10/08/19 25 10/07/2024 [facility] 1999 panel - Serum or Plasm a calcium [moles/volum e] in serum or plasma 8.8 mg/dL low: 8.4mg/ dLhigh : 10.2mg /dL Not Available Not Available 10/28/2024 12:16:18 10/08/19 25 10/07/2024 Basic metab olic 2000 panel - Serum or Plasm a anion [...] high Not Available Not Available 10/28/2024 12:15:54 07/0810/08/2024 Gluco se [Mass /volu me] in Arter ial blood specimen source identified Arteri al/Cap illary Not Available Not Available 12:15:54 10/09/1910/08/2024 Gluco se [Mass /volu me] in Arter ial blood interpretati on and review of laboratory results Abnorm al Not Available Not Available 12:15:54 10/09/1910/08/2024 CBC panel - Blood by Autom ated count leukocytes [#/volume] in blood by automated count 6.3 text: 4.0 - 10.7 x10e9/ L Not Available Not Available 10/28/2024 12:15:54 10/09/1910/08/2024 [...] 33.6pg Not Available Not Available 10/28/2024 12:15:54 10/09/1910/08/2024 CBC panel - Blood by Autom ated count MCHC [entitic mass/volume] in red blood cells by automated count 32.9 g/dL low: 31.7g/ dLhigh : 36.3g/ dL Not Available Not Available 10/28/2024 12:15:54 10/09/1910/08/2024 CBC panel - Blood by Autom ated count erythrocyte [distwidth] in red blood cells by automated count 13.9 % low: 11.3%h igh: 14.8% Not Available Not Available 10/28/2024 12:15:54 10/09/1910/08/2024 CBC panel - Blood by Autom ated count platelets [#/volume] in blood by automated count 318 text: 150 - 420 x10e9/ L Not Available Not Available 10/28/2024 12:15:54 10/09/1910/08/2024 CBC panel - Blood by Autom ated count platelet [entitic mean volume] in blood by automated count 9.6 fL low: 7.8fLh igh: 11.4fL Not Available Not Available 10/28/2024 12:15:54 10/09/1910/08/2024 CBC panel - Blood by Autom ated count interpretati on and review of laboratory results Abnorm al Not Available Not Available 12:15:54 10/09/1910/08/2024 Basic metab olic 2000 panel - Serum or Plasm a urea nitrogen [mass/volume ] in serum or plasma 23 mg/dL low: 7mg/dL high: 26mg/d L Not Available Not Available 10/28/2024 12:15:54 10/09/1910/08/2024 Basic metab olic 2000 panel - Serum or Plasm a creatinine [mass/volume ] in serum or plasma 1.15 mg/dL low: 0.56mg /dLhig h: 0.96mg /dL high Not Available Not Available 10/28/2024 12:15:54 10/09/1910/08/2024 Basic metab olic 2000 panel - Serum or Plasm a sodium [moles/volum e] in serum or plasma 137 mmol/ L low: 136mmo l/Lhig h: 145mmo l/L Not Available Not Available 10/28/2024 12:15:54 10/09/19 25 10/08/2024 [facility] 1999 panel - Serum or Plasm a potassium [moles/volum e] in serum or plasma 4.3 mmol/ L low: 3.5mmo l/Lhig h: 4.5mmo l/L Not Available Not Available 10/28/2024 12:15:54 10/09/19 25 10/08/2024 [facility] 1999 panel - Serum or Plasm a chloride [moles/volum e] in serum or plasma 108 mmol/ L low: 98mmol /Lhigh : 107mmo l/L high Not Available Not Available 10/28/2024 12:15:54 10/09/19 25 10/08/2024 Basic [facility] 1999 panel - Serum or Plasm a carbon dioxide, total [moles/volum e] in serum or plasma 25 mmol/ L low: 22mmol /Lhigh : 29mmol /L Not Available Not Available 10/28/2024 12:15:54 10/09/19 25 10/08/2024 [facility] 1999 panel - Serum or Plasm a glucose [mass/volume ] in serum or plasma 270 mg/dL low: 70mg/d Lhigh: 99mg/d L high Not Available Not Available 10/28/2024 12:15:54 10/09/19 25 10/08/2024 [facility] 1999 panel - Serum or Plasm a calcium [moles/volum e] in serum or plasma 8.6 mg/dL low: 8.4mg/ dLhigh : 10.2mg /dL Not Available Not Available 10/28/2024 12:15:54 10/09/19 25 10/08/2024 [facility] 1999 panel - Serum or Plasm a anion gap 4 low: 6high: 16 low Not Available Not Available 10/28/2024 12:15:54 10/09/19 25 10/08/2024 Basic [facility] 1999 panel - Serum or Plasm a urea nitrogen/cre atinine [mass ratio] in serum or plasma 20 low: 7high: 23 Not Available Not Available 10/28/2024 12:15:54 10/09/19 25 10/08/2024 Basic [facility] 1999 panel - Serum or Plasm a osmolality calculated 297 text: 275 - 295 mOsm/k g high Not Available Not Available 10/28/2024 12:15:54 10/09/1910/08/2024 Basic metab olic 1999 panel - Serum [...] . Not Available Not Available 10/28/2024 12:15:54 10/09/1910/08/2024 Basic metab olic 1999 panel - Serum or Plasm a interpretati on and review of laboratory results Abnorm al Not Available Not Available 12:15:54 10/09/1910/08/2024 Phosp hate [Mass /volu me] in Serum or Plasm a phosphate [mass/volume ] in serum or plasma 2.8 mg/dL low: 2.9mg/ dLhigh : 5.1mg/ dL low Not Available Not Available 10/28/2024 12:15:54 10/09/1910/08/2024 Phosp hate [Mass /volu me] in Serum or Plasm a interpretati on and review of laboratory results Abnorm al Not Available Not Available 12:15:54 10/09/1910/08/2024 Magne sium [Mass /volu me] in Serum [...] Abnorm al Not Available Not Available 12:16:19 08/22/1908/21/2024 MAMMO , scree barron, digit al, bilat eral No observ ation record ed. [email or web address] [place] [address], [place], [address], 08/29/2024 08:04:08 09/17/19 25 09/16/2024 XR, chest , 2 view No observ ation record ed. [address] [facility], [place], [address], 09/18/2024 13:21:21 09/18/19 25 09/17/2024 trans -thor acic echoc ardio gram (TTE) (PROC ) No observ ation record ed. [address], [place], [address], 09/18/2024 13:23:20 10/29/19 elect rocar diogr am No observ ation record ed. [email or web address] In-Office Order Internal Use Only DO Not Attach Compendium DO Not Attach Compendium, Do Not Delete/merge, [id number] 10/28/2024 12:47:55 10/29/19 25 10/28/2024 elect rocar diogr am No observ ation record ed. BARCODE In-Office Order Internal Use Only DO Not Attach Compendium DO Not Attach Compendium, Do Not Delete/merge, [id number] 10/28/2024 12:55:21 Result Notes None recorded. Problems Name Problem SNOMED Code Status Onset Date Resolution Date Notes Provider Name and Address Organization Details Recorded Time Diabetes mellitus 22418781 Active NIDDM TYPE II RADHA BONILLA NP Attn: Nicole fisher,[address] [facility], [place], [address], [place] [facility] 8 14:39:52 Essential hypertens ion 41005740 Active RADHA BONILLA NP Attn: Sherifhector fisher,[address] [facility], [place], [place], [address] [place] [address] 2, [place] [facility] 8 14:39:52 Lesion of tongue 466220709 Completed 10/17/2019 FIONA MATTSON Attn: Nicole fisher,[address] [facility], [place], [place], [address] [place] [address], [place] [facility] 0 17:33:41 Acute sinusitis 12526408 Completed 01/02/2019 FIONA MATTSON Attn: Sherifhector fisher,[address] [facility], [place], [place], [address] [place] [address], [place] [facility] 9 12:25:34 Depressiv e disorder 13742413 Active RADHA BONILLA NP Attn: Nicole fisher,[address] [facility], [place], [place], [address] [place] [address], [place] [facility] 8 14:39:52 Purpuric rash 264784127 Completed 07/09/2019 FIONA MATTSON Attn: Sherifhector fisher,[address] [facility], [place], [place], [address] [place] [address] 2, [place] [facility] 0 11:18:09 Pain in left knee Active RADHA BONILLA NP Attn: Sherifhector fisher,[address] [facility], [place], [address], [place] [facility] 8 14:39:52 Serum creatinin e above reference range 775311021 Completed 07/09/2019 FIONA MATTSON Attn: Sherifhector fisher,[address] [facility], [place], [address], [place] [facility] 0 11:18:07 Chronic kidney disease stage 3 855749601 Active 2018 Nuha Gold MA null, [place] - [facility] 9 14:16:49 Atrial fibrillat ion 57266584 Active 2023 DEVI PAULSON Attn: Accountin g,[address] [facility], [place], [address], [place] [facility] 4 15:28:30 Morbid obesity 734968012 Active 2023 DEVI PAULSON Attn: Accountin g,[address] [facility], [place], [address], [place] [facility] 4 06:53:43 Tachycard ia 3333129 Active 2023 DEVI PAULSON Attn: Accountin g,[address] [facility], [place], [address], [place] [facility] 4 06:54:15 Venous stasis ulcer with edema of right lower leg [id number] 75487 Active 2023 DEVI PAULSON Attn: Accountin g,[address] [facility], [place], [address], [place] [facility] 4 08:31:12 Poor balance 189169896 Active 2023 DEVI PAULSON Attn: Accountin g,[address] [facility], [place], [address], [place] [facility] 4 08:31:13 Hyperlipi demia 97992746 Active 2023 DEVI PAULSON Attn: Accountin g,[address] [facility], [place], [address], [place] [facility] 4 08:31:16 Orthostat ic hypotensi on 69850475 Active 2023 DEVI PAULSON Attn: Accountin g,[address] [facility], [place], [address], [place] [facility] 4 12:38:10 Obesity 922802785 Active 2023 DEVI PAULSON Attn: Nicole fisher,[address] [facility], [place], [address], [place] [facility] 4 12:38:44 Impairmen t of balance 639999782 Active 2024 DEVI PAULSON Attn: Nicole fisher,[address] [facility], [place], [address], [place] [facility] 5 14:21:39 Type 2 diabetes mellitus 86593853 Active 2024 DEVI PAULSON Attn: Nicole fisher,[address] [facility], [place], [address], [place] [facility] 5 14:21:40 Problem Notes None recorded. Procedures Surgical History Date Name Laterality Status Provider Name and Address Organization Details Recorded Time 3 Date of Last Mammogram completed Olivia Francisco [place] - [place] 05/10/2023 14:38:56 7 Knee Surgery completed Nuha Gold [place] - [facility] 07/11/2016 09:16:30 Other completed Nuha Naimynor [place] - [facility] 12/16/2015 11:34:10 Other completed Nuha Naimynor [place] - [facility] 12/16/2015 11:34:10 Breast Surgery completed Nuha Naimynor [place] - [facility] 12/16/2015 11:34:10 Imaging Results None [...] e 50 mcg/actua tion nasal spray,luann pension Robinson 2 sprays every day by intranas al [...] in Arterial blood by Pulse oximetry Systolic And Diastolic Provider Name and Address Organization Details Last Updated DateTime 5 165.1 cm 43.3 kg/m2 042358. 02 g 67 /min 18 /min 95 % 95 % 98/65 mm[Hg] Francisca Stone [place] - [facility] 5 10:43:19 Date Recorded Body height Body mass index (BMI) Body weight Heart rate Oxygen saturation Oxygen saturation in Arterial blood by Pulse oximetry Systolic And Diastolic Provider Name and Address Organization Details Last Updated DateTime 5 165.1 cm 44 kg/m2 668998. 09 g 72 /min 98 % 98 % 124/84 mm[Hg] Sherei Rojas [place] - [facility] 5 15:32:04 Date Recorded Body height Body mass index (BMI) Body weight Heart rate Oxygen saturation Oxygen saturation in Arterial blood by Pulse oximetry Systolic And Diastolic Provider Name and Address Organization Details Last Updated DateTime 5 165.1 cm 44.1 kg/m2 875768. 98 g 72 /min 96 % 96 % 113/66 mm[Hg] Olivia Francisco [place] - [facility] 5 12:20:54 Date Recorded Body height Body mass index (BMI) Body weight Heart rate Oxygen saturation Oxygen saturation in Arterial blood by Pulse oximetry Respiratory rate Systolic And Diastolic Provider Name and Address Organization Details Last Updated DateTime 4 165.1 cm 39.8 kg/m2 673820. 58 g 72 /min 97 % 97 % 14 /min 89/58 mm[Hg] DEVI PAULSON Attn: Nicole fisher,[address] [place], [address], [facility] 4 12:37:41 Social History Question Answer Notes LastModified by [employer] Details LastModified Time Tobacco Smoking Status Former Smoker Stopped when 24 yrs old Nilam Zarco MA [facility], [facility] 07/13/2020 15:23:56 Hard Of Hearing Or Deaf [...] Functional Status Question Answer Note LastModified by [employer] Details LastModified Time What is your level of alcohol consumption? Occasional Information not available 05/21/2014 Are you able [...] completed RADHA BONILLA NP Attn: Accounting,[address] [place], [address], [place] [facility] 07/06/2017 14:40:03 pneumococcal polysaccharide PPV23 5 completed Not Available [facility] 04/20/2019 02:29:46 Pneumococcal conjugate PCV20, polysaccharide CZQ104 conjugate, adjuvant, PF 4 completed DEVI PAULSON Attn: Accounting[address] [place], [address], [place] [facility] 05/16/2023 06:12:24 Past Encounters Encounter ID Performer Location Encounter Start Date Encounter Closed Date Diagnosis/Indication Diagnosis SNOMED-CT Code Diagnosis ICD10 Code Diagnosis Note [id number] Dyan Landin MD [address] [address] 05/21/2014 11:06:56 05/21/2014 11:57:29 Diabetes mellitus 96886006 reviewed lab and meds--need s to get better at taking meds discussed stressors- -dealing w/ Essential hypertension 70140529 cont meds-- [id number] Dyan Landin MD [facility] [address] [place] [phone] 09/02/2014 11:42:37 09/02/2014 12:39:04 Diabetes mellitus 10131011 reviewed lab and meds--no changes--w ork on diet Lesion of tongue 947447467 back on Orabase gel try to get nightguard [id number] Dyan Landin MD [facility] [address] [address] 12/09/2014 10:38:32 12/09/2014 11:49:07 Diabetes mellitus 47095800 reviewed lab--doing well--cont meds work at exercise needs to try to get better mouth guard--old one rubs against tongue [id number] Fly Vivar MD [facility] [address] [place] [phone] 01/15/2015 10:21:35 01/15/2015 10:51:33 Diabetes mellitus 01443490 E11.9 Essential hypertension 16648871 I10 Acute sinusitis 67171802 J01.90 [id number] Dyan Landin MD [facility] [address] [address] 06/16/2015 10:52:02 06/16/2015 14:35:53 Adult health examination 209583438 Z00.01 reviewed lab and meds. encouraged reg exercise-- work up to 150 min /wk Diabetes mellitus 474766 09 E13.65 reviewed lab--takin g meds but not doing well w/ diet--revi ewed. no med changes. try to check bs's weekly--st art w/ goal below 200. repeat lab in 3mo Depressive disorder 6087 2908 F33.1 discussed issues--te nds to be a hoarder. believe a lot of it is from depression . declines therapy. will change meds. strategies to deal w/ issues discussed. fu closely Purpuric rash 800569994 D69.2 will treat w/ round of steroids. start zyrtec. be aware that bs's will go up [id number] Dyan Landin MD [facility] [address] [phone] 09/16/2015 11:39:34 09/16/2015 13:04:36 Depressive disorder 53033618 F33.1 thinks she did better on higher dose of Zoloft--wi ll go back to 100mg; cont wellbutrin . discussed issues--en couraged to take action with issues of hoarding Diabetes mellitus 476099 E13.65 reviewed lab and meds--doin g a little better w/ wt loss/ diet. cont to work on it--realiz es she is maxed out on present oral meds [id number] Dyan Landin MD [facility] [address] [place] [address] 10/16/2015 11:50:29 10/28/2015 03:47:45 Pain in left knee 2670761016 79356 M25.562 will get xray. stop Ibuprofen- -will give short burst of Toradol. can take Tylenol prn as suppliment . ice Adult heal th examination 466611696 Z00.01 reviewed lab and meds. encouraged reg exercise-- work up to 150 min /wk [id number] Fuad Painter MD [facility] [address] [address] 12/16/2015 11:16:53 12/25/2015 09:29:11 Depressive disorder 24515249 F33.1 discussed d/w stressors- -using exercise for diversion Diabetes mellitus 697413 E13.65 reviewed lab and meds--doin g a better. cont working on diet Serum crea tinine above reference range 220006071 R79.89 reviewed lab--creat up, poss b/c of steroids and NSAID's. will plan on repeating in 1 month--no more nsaid's [id number] Amairani Gilmore MD [facility] [address] [place] [address] 01/20/2016 11:24:11 01/20/2016 16:15:38 Serum creatinine above reference range 658922008 R79.89 will repeat lab---cont off meds [id number] Bridget Amos , BILINGUAL RECEPTIONIST-BC [facility] [address] [place] [address] 06/07/2016 11:11:39 06/28/2016 12:29:17 Osteoarthritis of knee 450382164 M17.0 ok for surg. needs to try to exercise a bit beofre surg to build up strength and endurance Diabetes mellitus 820072 09 E13.65 reviewed lab and meds--A1c did go up a bit--is not very active--wi ll work at it. check BS's 3 x wkly and call values in after surg--goal [id number] [id number] RADHA BONILLA NP [facility] [address] [place] [address] 08/08/2016 15:15:39 08/31/2016 16:04:32 Depressive disorder 77878457 F33.1 - Symptoms worsening - PHQ-9 indicates moderately severe depression - Will increase sertraline - No SI/HI - RTC in 6 months Essential hypertension 63637394 I10 - BP within goal range at 130/60 - No red flag symptoms - Labs ordered - Discussed diet and exercise - RTC in 6 months Diabetes mellitus 860996 09 E13.65 - Will check labs - Continue metformin and glipizide - Samples for Januvia given - will RX, but patient concerned with cost - Needs new meter - Discussed diet and exercise - RTC in 6 months Hyperlipidemia 18895158 E78.5 - Will check labs - Currently taking rosuvastat in - continue same - RTC in 6 months Fatigue 50984265 R53.83 - Likely attributab le to depression , but will check TSH and Vit D Osteoarthr itis of knee 151672387 M17.12 - 5 weeks post-opera tive - Takes [place] PRN for pain per ortho [id number] Amairani Gilmore MD [facility] [address] [place] [address] 01/19/2017 14:16:50 01/23/2017 15:36:23 Depressive disorder 39427572 F33.1 - Stable, controlled - Currently takes sertraline 100mg daily - tolerating well - continue same - Discussed healthy ways to deal with stressors - RTC in 6 months Essential hypertension 97900914 I10 - BP within goal range at 120/60 - No red flag symptoms - Labs ordered today - last lab 08/2016 - Currently takes lisinopril 10mg daily - continue same - Discussed diet and exercise regimens - RTC in 6 months with lab prior Diabetes mellitus 096936 E11.9 - Last lab 08/2016 - will repeat labs prior to upcoming surgery - Currently taking glipizide 20mg daily, januvia 100mg daily, and metformin 850mg BID - continue same - Takes a daily statin - Encouraged annual eye exam - RTC in 6 months with lab prior Pre-surger y evaluation 911729588 Z01.818 - Right knee replacemen t - Planned for 03/06/[address] Mackey - Patient is an acceptable risk for surgery medically - No form provided for completion - RTC as needed [id number] Amairani Gilmore MD [address] [address] 07/06/2017 14:17:44 07/13/2017 16:20:24 Adult health examination 249519640 Z00.00 - No pap >65 years - Mammogram ordered today - Bone density referral placed today - Last colonoscop y 08/2014 - Tdap up to date Bladder mu scle dysfunction - overactive 215184746 N32.81 - Sudden urge to void - Discussed conservati ve management vs. medication - Will start with bladder training - May add medication in future - RTC as needed Screening for malignant neoplasm of breast 171431656 Z12.31 - Routine screening mammogram Essential hypertension 97174362 I10 - BP at goal range today at 110/60 - No red flag symptoms - Currently taking lisinopril 10mg daily - continue same - Lab ordered today - RTC in 6 months Diabetes mellitus 737094 09 E11.9 - Lab ordered today - Currently taking glipizide 20mg daily, januvia 100mg daily, and metformin 1700mg once daily - Patient is on a statin and ACEI - Needs monofilame nt exam - Encouraged annual eye exam - patient to schedule - Diet and exercise regimens discussed - RTC in 6 months with lab prior Mixed hyperlipidemia 267 657554 E78.2 - Lab ordered today - Currently takes rosuvastat in 5mg daily - continue same - RTC in 6 months with lab prior Weight gain 4823938 R63. 5 - Will check lab - Likely due to recent poor appetite and lack of activity - Discussed BMI and diet and exercise regimens Screening for osteoporosis 926246026 Z13.820 - Routine screening bone density exam Allergic rhinitis 457313 04 J30.9 - Takes cetirizine daily - continue same - Refilled today Body mass index 40+ - severely obese 171052339 Z68.41 - BMI 44.3 - Diet and exercise regimens discussed - Encouraged avoiding ETOH and poor food choices [id number] GLENN Morgan NP [address] [address] 08/02/2017 10:09:30 08/11/2017 11:13:56 Upper respiratory infection 23292187 J06.9 Rapid strep negative. Start oral antibiotic s and flonase as directed. Saline gargles, ibuprofen, tylenol. F/u prn [id number] Paulina Ruiz MD [address] [address] 05/22/2018 16:23:54 05/29/2018 10:37:21 Diabetes mellitus 34959987 E11.65 Essential hypertension 93909882 I10 Hyperlipidemia 63988569 E78.2 Depressive disorder 3548 9007 F33.9 Lesion of tongue 5989542 05 K14.9 gets canker sores frequently [id number] Paulina Ruiz MD [address] [address] 01/02/2019 12:14:08 01/03/2019 10:09:25 Low back pain 467539697 M54.5 - Advised that area may be SI joint or sciatica- Will send for xray and also steroid- If xray is normal, will send for PT- Advised of stretching - Continue Ibuprofen as needed- Seek immediate care for loss of bowel or bladder- RTC if symptoms worsen or fail to improve [id number] Paulina Ruiz MD [address] [address] 01/10/2019 15:04:41 01/16/2019 11:59:33 Low back pain 755178077 M54.5 - Advised of stretching and sending for PT- Continue Ibuprofen as needed- Seek immediate care for loss of bowel or bladder- Will call for xray results- RTC if symptoms worsen or fail to improve Abnormal r enal function 92601825 R94.4 - Last CMP showed abnormal renal function- Patient given order to complete in one month Diabetes mellitus 848927 09 E11.9 - Patient stable on Glipizide, Januvia and Metformin- Patient last A1C on 01/03/19 showed well controlled diabetes at 6.8%- Continue medication as prescribed - Will complete foot exam with next visit Essential hypertension 65702778 I10 - Patient stable on Lisinopril - At goal <130/80- Continue as prescribed Depressive disorder 3540 2838 F32.9 - Patient was stable on Sertraline . She reports she has not been taking regularly- She reports she lost a adolfo she was talking to from a heart attack recently and is starting medication again- Denies SI or HI. Seek care for SI or HI- Contact office if medication is not effective Hyperlipidemia 68566402 E78.5 - Patient stable on Rosuvastat in- Continue as prescribed [id number] Paulina Ruiz MD [address] [address] 07/09/2019 10:11:26 07/12/2019 12:10:22 Depression screening 923622726 Z13.31 - Negative depression screening Chronic ki dney disease stage 3 587269797 N18.3 - Patient saw nephrologi st- Next appointmen t scheduled for September- Patient completed renal ultrasound Depressive disorder 3548 2093 F32.9 - Patient was stable on Sertraline - Denies SI or HI. Seek care for SI or HI- Continue as prescribed Diabetes mellitus 292882 09 E11.9 - Patient stable on Glipizide, Januvia and Metformin- Patient last A1C on 01/03/19 showed well controlled diabetes at 6.8%- Continue medication as prescribed - Will complete foot exam with next visit- Patient will complete labs once COVID-19 clears- Discussed weight loss and diet- Discussed healthy BMI Essential hypertension 04371619 I10 - Patient stable on Lisinopril - Continue as prescribed Hyperlipidemia 74293690 E78.5 - Patient stable on Rosuvastat in- Continue as prescribed [id number] Paulina Ruiz MD [address] [address] 01/08/2020 10:58:51 01/09/2020 11:44:55 Depressive disorder 49358422 F32.9 - Patient was stable on Sertraline - Denies SI or HI. Seek care for SI or HI- Continue as prescribed Chronic ki dney disease stage 3 079364700 N18.30 - Patient sees nephrologi st Essential hypertension 98055572 I10 - Patient stable on Lisinopril - Continue as prescribed - Denies problems with chest pain, SOB, palpitatio ns, edema or dizziness- BP at goal <130/80 Diabetes mellitus 670939 09 E11.9 - Patient stable on Glipizide, Januvia and Metformin- A1C shows controlled diabetes at 6.2%- Continue medication as prescribed - Foot exam normal today- Micro/albu min urine completed today- Discussed weight loss and diet- Discussed healthy BMI- Patient to schedule diabetes eye exam Hyperlipidemia 45032393 E78.5 - Patient stable on Rosuvastat in- Continue as prescribed - Labs will be completed with next visit Morbid obesity 813338109 E66.01 - Patient is swimming 2-3 days a week at the [facility] [id number] Paulina Ruiz MD [facility] [address] [place] [address] 07/13/2020 15:13:05 07/14/2020 10:10:00 Depressive disorder 52595392 F32.9 - Patient stable on Sertraline - [...] prescribed Chronic ki dney disease stage 3 473013876 N18.30 - Patient sees nephrologi st every 6 months Essential hypertension 08392213 I10 - Patient stable on Lisinopril - Continue as prescribed - Denies problems with chest pain, SOB, palpitatio ns, edema or dizziness - BP at goal <130/80 Diabetes mellitus 756610 09 E11.9 - Patient stable on Glipizide, Januvia and Metformin - A1C shows controlled diabetes at 6.9% - Continue medication as prescribed - Foot exam normal today - Micro/albu min urine completed by nephrologi st. 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 Obesity 819717018 E66.9 - Patient has gained 28 pounds since last office visit - Discussed diet and trying to slowly increase activity - She will be starting to mow grass - Continue with swimming - Discussed trying to walk and increase slowly as back allows Hyperlipidemia 59687472 E78.5 - Patient stable on Rosuvastat in - Continue as prescribed - Fasting labs ordered [id number] Paulina Ruiz MD [facility] [address] [place] [address] 01/12/2021 11:55:09 01/12/2021 19:22:19 Diabetes mellitus 53651206 E11.9 - Patient manages with Glipizide, Januvia, Metformin and Pioglitazo ne- Her A1C is controlled at 6.1%- She is due for eye exam. Discussed scheduling - Foot exam will be completed with next visit- Patient sees a nephrologi st- On GRAHAM inhibitor Essential hypertension 64387755 I10 - Patient manages with Lisinopril - At goal <130/80- Denies problems with chest pain, SOB, palpitatio ns, edema or dizziness Depressive disorder 8648 900 F32.9 - Patient takes Sertraline as prescribed - She reports she was feeling down so she increased her Sertraline for 150mg- She denies SI or HI- She would like to continue her 150mg for another 4-6 weeks- She will notify office if not effective and we will adjust medication Chronic ki dney disease stage 3 047898593 N18.30 - Patient sees nephrologi st every 6 months Positive s creening for depression on PHQ-9 (Patient Health Questionnaire 9) [id number] 03818 Z13.89 - Medication adjusted Low back pain 666693290 M54.59 - Patient reports continued low back pain- Previous xray shows severe arthritis- Patient tried PT without relief- Will send to orthopedic doctor Hyperlipidemia 61069145 E78.5 - Patient takes Crestor as prescribed - Last labs were normal Vaccine de clined by patient 8682006257 02 Z28.20 - Patient declines flu and pneumonia vaccines [id number] Rach ward MD [address] [address] 07/13/2021 11:46:10 07/14/2021 08:16:52 Essential hypertension 96286366 I10 - Patient manages with Lisinopril - At goal <130/80- Denies problems with chest pain, SOB, palpitatio ns, edema or dizziness Chronic ki dney disease stage 3 184606631 N18.30 - Patient sees nephrologi st every 6 months Diabetes mellitus 406037 09 E11.9 - Patient manages with Glipizide, Januvia, Metformin and Pioglitazo ne- Last A1C was 6.1%. Order given to patient to complete- Eye exam completed this month with normal results. Patient brought paper to office.- Foot exam normal today- Patient sees a nephrologi st- On GRAHAM inhibitor and statin Lumbar spondylosis 07748 0009 M47.896 - Patient reports continued back pain- She reports previous PT did help- Last xray shows spondylosi s- Will order PT again- Discussed possible orthopedic referral if no improvemen t- Discussed how weight loss can improve back pain Hyperlipidemia 66972940 E78.5 - Patient takes Crestor as prescribed - Last labs were normal- Lab order given to patient Morbid obesity 619149151 E66.01 - Discussed swimming again at the [facility]- Explained that reduction in weight can help with back and knee pain Depression screening 171 624154 Z13.31 - Negative depression screening Depressive disorder 3548 9007 F32.9 - Patient takes Sertraline as prescribed - She reports the medicaton is effective- PHQ9 is normal- She denies SI or HI [id number] Rach ward MD [address] [address] 01/12/2022 11:44:04 01/14/2022 09:01:17 Depressive disorder 48573077 F32.9 - Patient takes Sertraline as prescribed - PHQ9 is mild- Patient did just lose her only sibling about 8 weeks ago- She denies SI or HI Essential hypertension 43542156 I10 - Patient manages with Lisinopril , but has only been taking every other day due to insurance coverage- At goal <130/80- Denies problems with chest pain, SOB, palpitatio ns, edema or dizziness Diabetes mellitus 266536 09 E11.9 - Patient manages with Glipizide [...] GRAHAM inhibitor and statin Depression screening 171 376894 Z13.31 - Mild. Will repeat with next visit Hyperlipidemia 03038334 E78.5 - Patient takes Crestor as prescribed - She reports her insurance will not cover medication s until April so she has only been taking every other day for the past few months- Fasting labs completed today Obesity 530002513 E66.9 - Lost 33 pounds since last office visit- She has stopped drinking soda and limiting caloric intake [id number] Rach Noyola-Micheline ward MD [facility] [address] [place] [address] 08/31/2022 11:40:13 08/31/2022 16:52:27 Chronic kidney disease stage 3 018694962 N18.30 - Patient sees nephrologi st every 6 months. She was started on Furosemide Essential hypertension 34726298 I10 - Patient manages with Lisinopril - At goal <130/80- Denies problems with chest pain, SOB, palpitatio ns, edema or dizziness Depression screening 171 Z13.31 - Mild. Will repeat with next visit Diabetes mellitus 561334 09 E11.9 - Patient manages with Glipizide and Metformin and reports compliance - A1C increased from 6.6% to 7.5%- She has lost 12 more pounds since last visit- Will give 3 more months due to continued weight loss- Patient sees a nephrologi st- Foot exam normal- On GRAHAM inhibitor and statin- F/U 3 months Ankle pain 644218725 M25 .579 - She reports pain and rolling of the right ankle- Will send for xray- Discussed possible PT to strengthen the leg Hyperlipidemia 40060625 E78.5 - Manages with Atorvastat in- Had to switch from Rosuvastat in to Atorvastat in due to cost- Will complete fasting labs with next office visit Morbid obesity 928554004 E66.01 - Has lost 12 pounds since last visit Dry skin dermatitis 2600 62911 L85.3 - Noted to bi-lateral lower legs- Advised to try some Vaseline at night- Avoid scratching area to reduce risk of infection- If no relief, can try Triamcinol one [id number] Rach Noyola-Micheline ward MD [facility] [address] [place] [address] 11/22/2022 11:40:00 11/22/2022 16:47:33 Diabetes mellitus 57307111 E11.9 - Patient manages with Glipizide and [...] discuss medication changes- F/U 3 months Obesity 829339346 E66.9 - Lost 6 pounds since last visit [id number] DEVI PAULSON [facility] [address] [place] [address] 05/10/2023 14:21:43 05/18/2023 11:16:38 Diabetes mellitus 12325183 E11.9 A1C 7.4% (05/2023) 7.2 (11/2022)Devi mendez manages with Glipizide and Metformin and reports compliance disucssed starting farxiga and or glp1 for better A1C control and improvemen t with obesity/ki dneysFoot exam: 08/2022Eye Exam: given orderStati n: atorvastat in 20mg , compliance ACEi: Lisinopril , compliance pneumonia vaccine: prevnar 20 05/10/2023 Chronic ki dney disease stage 3 997530850 N18.30 - Patient sees nephrologi st every 6 months. She was started on Furosemide and needs refill. understand s to stop hcz CMP: GFR 37, cr 1.4 Essential hypertension 58652430 I10 - Patient manages with Lisinopril - At goal <130/80- Denies problems with chest pain, SOB, palpitatio ns, edema or dizziness Hyperlipidemia 43915539 E78.5 - Manages with Atorvastat in- Had to switch from Rosuvastat in to Atorvastat in due to cost- Will complete fasting labs with next office visit Morbid obesity 548628756 E66.01 BMI 44.4disucs sed GLP1 today for weight and DM management Depression screening 171 185211 Z13.31 - Mild. Will repeat with next visit Atrial fibrillation 4943 6004 I48.91 Chadvasc score 4. Normal RRR on exmadx in ER 03/2023 sent home on eliquis but not able to afford. On review of ER visit echo w/o abnormalit y. will switch to xarelto. I called wellness and available for $10GFR stable per 03/2023 labswill start xarelto Administra tion of pneumococcal vaccine 81597568 Z23 due for prevnar vaccine [id number] DEVI PAULSON [facility] [address] [place] [address] 06/20/2023 15:10:54 06/21/2023 20:34:53 Diabetes mellitus 48699039 E11.9 A1C 7.4% (05/2023) 7.2 (11/2022)Devi mendez denies fam hx of thyroid cancer, [...] pneumonia vaccine: prevnar 20 05/10/2023 Essential hypertension 85064919 I10 - Patient manages with Lisinopril - At goal <130/80- Denies problems with chest pain, SOB, palpitatio ns, edema or dizziness Atrial fibrillation 4943 6004 I48.91 Chadvasc score 4. Normal RRR on examdoing well on xareltoGFR stable per 03/2023 labswill start xarelto Hyperlipidemia 50772659 E78.5 - Manages with Atorvastat in- Had to switch from Rosuvastat in to Atorvastat in due to cost- Will complete fasting labs with next office visit [id number] DEVI PAULSON [facility] [address] [place] [address] 07/25/2023 12:04:25 07/25/2023 13:12:21 Essential hypertension 98425172 I10 - Patient manages with Lisinopril - At goal <130/80- Denies problems with chest pain, SOB, palpitatio ns, edema or dizziness Atrial fibrillation 4943 6004 I48.91 Chadvasc score 4. Normal RRR on examdoing well on xareltoGFR stable per 03/2023 labswill start xarelto Hyperlipidemia 29376810 E78.5 - Manages with Atorvastat in- Had to switch from Rosuvastat in to Atorvastat in due to cost- Will complete fasting labs with next office visit Dyspnea on exertion 6084 5006 R06.09 sleeps with 2 pillows under head adn pillow b/w kneesrefus es sleep study Morbid obesity 744792774 E66.01 BMI 45.5 Tachycardia 7617325 R00. 0 did not take metoprolol today [id number] DEVI PAULSON [facility] [address] [place] [address] 09/06/2023 16:21:31 09/06/2023 16:57:29 Essential hypertension 98798877 I10 - Patient was taken off Lisinopril - At goal <130/80- Denies problems with chest pain, SOB, palpitatio ns, edema or dizziness Atrial fibrillation 4943 6004 I48.91 Chadvasc score 4. Normal RRR on examdoing well on xareltoGFR stable per 03/2023 labswill start xarelto Hyperlipidemia 81753005 E78.5 - Manages with Atorvastat in- Had to switch from Rosuvastat in to Atorvastat in due to cost- Will complete fasting labs with next office visit Morbid obesity 232395306 E66.01 BMI 45.8 Poor balance 338519039 R 27.8 patient with poor balance that is worsened by lymphedema she was referred to PT Venous sta sis ulcer with edema of right lower leg 6386932805 4732327 L97.919 small bl venous ulcer LE [id number] Darius hanna MD [facility] [address] [place] [address] 10/12/2023 15:06:23 10/12/2023 15:15:19 [id number] Elton Solis MD [facility] [address] [place] [address] 12/12/2023 15:35:02 12/18/2023 09:02:24 Type 2 diabetes mellitus 01148128 E11.9 controlled continue following nephrology continue current medication s Orthostati c hypotension 16760442 I95.1 cut down on lisinopril to 5 mgcontinue half of metoprolol as instructed by cardiology bring in BP log in one weekmainta in adequate fluid intake Obesity 226392610 E66.8 has maintained good weight loss [id number] Elton Solis MD [facility] [address] [place] [address] 04/04/2024 10:39:00 04/04/2024 11:16:47 Diabetes mellitus 55368306 E11.9 Patient denies fam hx of thyroid [...] compliance pneumonia vaccine: prevnar 20 05/10/2023 Obesity 475782378 E66.9 [id number] Elton Solis MD [facility] [address] [place] [address] 06/05/2024 15:08:26 06/05/2024 16:54:04 Adult health examination 875531170 Z00.01 - medication list updated- continue seeing specialist s- BP controlled - continue sertraline Morbid obesity 165882766 E66.01 BMI 44 Screening mammography 24 288620 Z12.31 due for mammogram Depression screening 171 144889 Z13.31 - negative- continue sertraline [id number] Elton Solis MD [facility] [address] [place] [address] 09/02/2024 12:09:27 09/04/2024 09:48:53 Type 2 diabetes mellitus 26926708 E11.9 patient's A1c has worsened since last visit and her kidney function now shows creatinine greater than 1.5. At this time we will stop metformin and she was left a message to see if she is okay starting insulin at this time. She has follow up with nephrology coming up. Impairment of balance 38 2201484 R26.89 Patient is losing balance and does [...] documented knee osteoarthr itis back from 2016. [id number] Elton Solis MD [facility] [address] [place] [address] 10/28/2024 12:24:09 10/28/2024 12:49:12 Type 2 diabetes mellitus 15052859 E11.9 Z79.4 Palpitations 62954015 R0 0.2 Health Concerns Section Related Observation LastModified by Organization Detai ls LastModified Time None Recorded Concern Status LastModified by Organization Details LastModified Time None Recorded Advance Directives Directive None Recorded Payers Insurance Date Sequence Insurance Name Policy Number Policy Leo Covered Member ID Leo Member ID Guarantor Name 09/02/2024 2 [facility] Jocelyn Norman [id number] Jocelyn Norman 09/02/2024 2 [employer] (MEDICARE SUPPLEMENT) Jocelyn Norman [id number] Jocelyn Norman 09/02/2024 [place] Jocelyn Norman [id number] Jocelyn Norman 09/02/2024 1 [place] Jocelyn Norman [id number] Jocelyn Norman 09/02/2024 1 [facility] - OPEN ACCESS (POS) Jocelyn Norman [id number] Jocelyn Norman 09/02/2024 [place] Jocelyn Norman [id number] Jocelyn Norman 09/02/2024 2 [facility] (MEDICARE REPLACEMENT/A DVANTAGE - HMO) Jocelyn Norman [id number] Jocelyn Norman 09/02/2024 1 [place] Jocelyn Norman [id number] Jocelyn Norman 09/02/2024 2 [facility] (MEDICARE REPLACEMENT/A DVANTAGE - HMO) Jocelyn Norman [id number] Jocelyn Norman 09/02/2024 1 [employer] (MEDICARE SUPPLEMENT) Jocelyn Norman [id number] Jocelyn Norman 09/02/2024 3 [place] (MEDICARE) Jocelyn Norman [id number] Jocelyn Norman 03/31/2017 SLIDING FEE SCHEDULE - DISCOUNT Jocelyn Norman 09/02/2024 1 [place] Jocelyn Norman [id number] Jocelyn Norman 09/02/2024 3 [place] Jocelyn Norman [id number] Jocelyn Norman 09/02/2024 1 [place] Jocelyn Norman [id number] Jocelyn Norman 09/02/2024 2 [employer] (MEDICARE SUPPLEMENT) Jocelyn Norman [id number] Jocelyn Norman 09/02/2024 [place] RHC - FQHC Jocelyn Norman [id number] Jocelyn Norman 09/02/2024 2 [facility] (MEDICARE REPLACEMENT/A DVANTAGE - HMO) Jocelyn Norman [id number] Jocelyn Norman 09/02/2024 1 [place] Jocelyn Norman [id number] Jocelyn Norman 09/02/2024 [place] [facility] Jocelyn Norman [id number] Jocelyn Norman 09/02/2024 1 [employer]ET[employer] [id number] Jocelyn Norman [id number] Jocelyn Norman OBGyn Episode No OBEpisode recorded.
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
[2024-10-28] MEDS: SODIUM CHLORIDE 0.9% IV 1,000 ML 150 ML IV CONT (13:24)
[2024-10-28] MEDS: METOPROLOL TARTRATE INJ 5 MG/5 ML VIAL IV PUSH (13:25)
--- NOTE | 2024-10-28 13:25 | PC.NURSE ---
140/79 1 mg metoprolol given iv hr 125
--- NOTE | 2024-10-28 13:30 | PC.NURSE ---
147/104 hr 113 1 mg metoprolol given
--- NOTE | 2024-10-28 13:32 | PC.NURSE ---
115/101 hr 118 1 mg metoprolol
--- NOTE | 2024-10-28 13:33 | PC.NURSE ---
Hr 106 1 mg metoprolol given 158/98
--- NOTE | 2024-10-28 13:36 | PC.NURSE ---
Hr 106 B/P 171/148 1mg metoprolol given
[2024-10-28 13:38] LABS: Hematocrit 34.2 % (37.0-47.0); Hemoglobin 10.5 g/dL (12.0-15.0); Immature Granulocyte Percent A 0.6 % (0-0.5); Lymphocytes Absolute Auto 1.32 K/mm3 (0.9-3.2); Mean Corpuscular HGB Conc 30.7 g/dl (32-36); Mean Corpuscular Hemoglobin 29.4 pg (26-34); Mean Corpuscular Volume 95.8 fl (80-100); Nucleated Red Blood Cells Absolute Auto 0.000 K/mm3 (0.0-0.012); Nucleated Red Blood Cells Perc 0.0 % (0.0-0.2); Platelet Count Result 242 k/mm3 (150-375); Red Blood Count 3.57 M/mm3 (4.2-5.4); White Blood Count 6.5 K/mm3 (4.5-10.0)
--- OUTSIDE RECORDS SUMMARY | 2024-10-28 13:42 | XMS_ITS | Clinical Summary ---
Author Organization [facility] Address [address] [place] [address] Phone Care Team Providers Care Frame Stylist Name Role Phone Unavailable Primary Care Provider [...] Comments Blood Pressure 97/51 05/27/2024 2:14 PM [employer] Pulse 53 05/27/2024 2:14 PM [employer] Temperature 36.2 C (97.1 F) 05/27/2024 2:14 PM [employer] Respiratory Rate 15 05/27/2024 2:14 PM [employer] Oxygen Saturation 97% 05/27/2024 2:14 PM [employer] Inhaled Oxygen Concentration - - Weight 120.2 kg (265 lb) 05/27/2024 2:14 PM [employer] Height 165.1 cm (5' 5) 11/17/2023 10:49 AM CDT Body Mass Index 44.1 11/17/2023 10:49 AM CDT Plan of Treatment Upcoming Encounters Date Type Department Care Team (Late st Contact Info) Description 12/19/2024 2:00 PM CDT Office Visit [facility] - [place] [address] [place] [address] Gurjit Ayala MD [address] [place] [address] Health Maintenance Due Date Last [...] Comments HEMOGLOBIN A1C Routine 03/13/2017 7:28 AM [employer] Encounter for general adult medical examination without abnormal findings from Last 3 Months or Most Recently Relevant to Health Maintenance Results * (ABNORMAL) HEMOGLOBIN A1C (03/13/2017 7:28 AM [employer]) HEMOGLOBIN A1C 6.3(H) 4.0 - 6.0 % 03/13/2017 10:54 AM [employer] [facility] EST. AVG GLUCOSE, A1C 134 mg/dL 03/13/2017 10:54 AM [employer] [facility] Blood Venipuncture / Unknown 03/13/2017 7:28 AM [employer] 03/13/2017 9:18 AM [employer] us Zain Smith MD CHEMISTRY ORDERABLES Final R esult [facility] [employer] [facility] CLIA# [id number] [address] [place] [address] from Last 3 Months or Most Recently Relevant to Health Maintenance Insurance MEDICARE PART A AND B [facility] [id number]
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
--- OUTSIDE RECORDS SUMMARY | 2024-10-28 13:42 | XMS_ITS | Clinical Summary ---
Author Organization [address] Address [address] [place] [address] Care Team Providers Care Fly Worker Name Role Phone Rosanne Emerson Primary Care [...] Department Care Team Description 10/07/2024 Results Follow-Up [facility] Medical Group Cardiology at [address] [place] [phone] Mitch Dunn MD [facility] Mobile Cardiac Telemetry Event Monitor 09/25/2024 Orders Only [facility] Medical [facility] Cardiology [address] [place] [address] [place] [phone] Corazon Rolon NP 09/19/2024 2:30 PM CDT Ancillary Procedure [facility] Cardiology [address] [place] [address] [place] [phone] Atrial fibrillation, unspecified type (HCC) 09/19/2024 Telephone [facility] Cardiology [address] [place] [address] [address] [place] [phone] Mitch Dunn MD 09/16/2024 Telephone [facility] Cardiology [address] [place] [address] [place] [phone] Ashanti Dove NP 08/21/2024 11:10 AM CDT - 08/21/2024 11:59 PM CDT Hospital Encounter [facility] Imaging and Radiology [address] [place] [address] Screening mammogram, encounter for; Encounter for screening [...] on file Legal Sex Female 7:43 PM BAKELITE MOLDER Gender Identity Not on file Sexual Orientation Not on file Obstetrics History Last Filed Vital Signs Vital Sign Reading Time Taken Comments Blood Pressure 128/56 05/02/2024 3:43 PM BAKELITE MOLDER Pulse 64 05/02/2024 3:43 PM BAKELITE MOLDER Temperature - - Respiratory Rate - - Oxygen Saturation 96% 05/02/2024 3:43 PM BAKELITE MOLDER Inhaled Oxygen Concentration - - Weight 118.8 kg (262 lb) 05/02/2024 3:43 PM BAKELITE MOLDER Height 165.1 cm (5' 5) 05/02/2024 3:43 PM BAKELITE MOLDER Body Mass Index 43.6 05/02/2024 3:43 PM BAKELITE MOLDER Plan of Treatment Health Maintenance Due Date [...] phy Narrative 10/02/2024 1:01 PM CDT AMBULATORY ARTIST RELATIONSHIP MANAGER REPORT Patient Name: Jocelyn Norman Date of [...] was used to complete this document, therefore, orthopedic surgeon variances may occur. Chava Meraz MD, [facility] 10/02/24 Procedure Note Chava Meraz MD - 10/02/2024 AMBULATORY ARTIST RELATIONSHIP MANAGER REPORT Patient Name: Jocelyn Norman Date of : 1950 Requesting Physician: Dr. Dunn Date of interpretation: 10/02/24 Type of monitor : One-week event monitor Date of the study/Enrollment period: 09/19/2024-09/25/2024 Indication: Unspecified atrial fibrillation Quality of the study: Adequate Interpretation: Predominant underlying rhythm is sinus rhythm, heart [id number] beats per minute, average heart rate 65 [...] software was used to complete this document, therefore,orthopedic surgeon variances may occur. Chava Meraz MD, [facility] 10/02/24 Mitch Dunn MD [facility] CED[facility] Final Result * Cardiology Document Scan (09/18/2024 2:40 PM CDT) Anatomical Region Laterality Modality Other Mitch Dunn MD [facility] CEDURES Final Result * Cardiology Document Scan (09/17/2024 2:29 PM CDT) Anatomical Region Laterality Modality Other Result [facility] Corazon Rolon NP [facility] PROCEDUR [...] Capillary blood 07/28/2023 1 0:32 AM CDT [facility] Leonides Dunn MD POINT OF CARE TEST SARAVANAN CASTANEDA Final Result from Last 3 Months or Most Recently Relevant to Health Maintenance Insurance MEDICARE [facility] MEDICARE [employer] Care Teams Fly Worker Relationship Specialty Start Date End Date Rosanne Emerson PA PCP - General Physician Bronze Plater 08/25/23
--- OUTSIDE RECORDS SUMMARY | 2024-10-28 13:42 | XMS_ITS | Clinical Summary ---
Author Organization [facility] Address [address] [place] [address] Phone Care Team Providers Care Manager Ship Name Role Phone Kirsten Pendleton MD Primary Care Provider [phone] Allergies No known active allergies Medications glipiZIDE [...] on file Legal Sex Female 9:55 AM [facility] Gender Identity Not on file [...] 06/21/2020 Influenza Vaccine (#1) 2024 Insurance MEDICARE [facility] Care Teams Manager Ship Relationship Specialty Start Date End Date Kirsten Pendleton MD [address] [place] [address] PCP - General Family Medicine 04/01/19
--- OUTSIDE RECORDS SUMMARY | 2024-10-28 13:42 | XMS_ITS | Clinical Summary ---
Author Organization [facility] Address [address] [place] [address] Phone Care Team Providers Care Store Receiving Specialist Name Role Phone TarikrosiobriandaBridget SENIOR IT ENGINEER Primary Care Provider Allergies Active Allergy Reactions [...] on file Legal Sex Female 9:18 AM MAINTENANCE EQUIPMENT OPERATOR Gender Identity Not on file Sexual Orientation Not on file Last Filed Vital Signs Vital Sign Reading Time Taken Comments Blood Pressure 150/68 03/09/2017 7:45 AM MAINTENANCE EQUIPMENT OPERATOR Pulse 105 03/08/2017 10:53 PM MAINTENANCE EQUIPMENT OPERATOR Temperature 37.3 C (99.2 F) 03/09/2017 7:45 AM MAINTENANCE EQUIPMENT OPERATOR Respiratory Rate 18 03/09/2017 7:45 AM MAINTENANCE EQUIPMENT OPERATOR Oxygen Saturation 95% 03/09/2017 7:45 AM MAINTENANCE EQUIPMENT OPERATOR Inhaled Oxygen Concentration - - Weight 115.7 kg (255 lb) 03/06/2017 2:20 PM MAINTENANCE EQUIPMENT OPERATOR Height 167.6 cm (5' 6) 03/06/2017 2:20 PM MAINTENANCE EQUIPMENT OPERATOR Body Mass Index 41.16 03/06/2017 2:20 PM MAINTENANCE EQUIPMENT OPERATOR Plan of Treatment Health Maintenance Due [...] this topic Medical Devices Implanted Type Area Building Construction Contractor Device Identifier Shelf Expiration Date Model / Serial / Lot Cmnt Bn Endrn Sst Gnta 40gm Hvisc - [id number] Implanted:Qty: 2 on 07/04/2016 by Rian Foss MD at [facility] IMPLANT Left: Knee JNJ / [employer] 01/31/2018 [id number] / / [id number] Cmnt Bn Cmw2 20gm Strl - [id number] Implanted:Qty: 1 on 07/04/2016 by Rian Foss MD at [facility] IMPLANT Left: Knee [employer]NJ / [employer] 08/31/2017 [id number] / / [id number] Cmpnt Ptlr 38mm Medialized Dome Attune - [id number] Implanted:Qty: 1 on 07/04/2016 by Rian Foss MD at [facility] IMPLANT Left: Knee [employer] / [employer] 01/31/2021 [id number] / / [id number] Cmnt Bn Sst Gnta Hvisc 40gm - [id number] Implanted:Qty: 1 on 03/06/2017 by Rian Foss MD at [facility] IMPLANT Right: Knee [employer] / [employer] 12/31/2017 [id number] / 5450-35-500 / [id number] Cmnt Bn Sst Gnta Hvisc 40gm - [id number] Implanted:Qty: 1 on 03/06/2017 by Rian Foss MD at [facility] IMPLANT Right: Knee [employer]NJ / [employer] 01/31/2018 [id number] / 5450-35-500 / [id number] Dome Ptlr 35mm Attune Kn Aox Cmnt - [id number] Implanted:Qty: 1 on 03/06/2017 by Rian Foss MD at [facility] IMPLANT Right: Knee [employer]NJ / [employer] 12/01/2021 [id number] / 1518-20-035 / [id number] Attune Tibial Base Size 6 Cemented Implanted:Qty: 1 on 07/04/2016 by Rian Foss MD at [facility] Left: Knee [employer] 03/02/2026 [id number] / / [id number] Attune Tibial Insert Size 6, 8mm Implanted:Qty: 1 on 07/04/2016 by Rian Foss MD at [facility] Left: Knee [employer] 10/31/2017 [id number] / / [id number] Attune Femoral Size 6, Left Cemented Implanted:Qty: 1 on 07/04/2016 by Rian Foss MD at [facility] Left: Knee [employer] 03/02/2026 [id number] / / [id number] Attune Tibial Base Implanted:Qty: 1 on 03/06/2017 by Rian Foss MD at [facility] Right: Knee [employer] 07/01/2026 [id number] / 1506-40-006 / [id number] Attune Knee System Revision Cemented Stem Implanted:Qty: 1 on 03/06/2017 by Rian Foss MD at [facility] Right: Knee [employer] 12/31/2026 [id number] / [id number] / [id number] Attune Femoral Posterior Stabilized Implanted:Qty: 1 on 03/06/2017 by Rian Foss MD at [facility] Right: Knee [employer] 07/01/2026 150 / 150 / [id number] Attune Tibial Insert Implanted:Qty: 1 on 03/06/2017 by Rian Foss MD at [facility] Right: Knee [employer] 11/30/2021 [id number] / 1516-40-607 / [id number] Insurance [facility] MEDICARE Member Subscriber Plan / Payer (Ef fective 2014-Present) Name:Jocelyn Norman Member ID:[id number] Relation to Subscriber:Self Name:Jocelyn Norman Subscriber ID:[id number] Payer ID:[id number] Group ID:Not on file Type:Not on file Address: [facility] [address] [facility] [employer] [facility] [place] [address] Care Teams Store Receiving Specialist Relationship Specialty Start Date End Date Bridget Trinidad APRN [address] [place] [address] PCP - General Advanced Practice Nurse 06/17/16
--- OUTSIDE RECORDS SUMMARY | 2024-10-28 13:42 | XMS_ITS | Encounter Summary ---
Author Organization [facility] Address [address] [place] [address] Care Team Providers Care Application Support Technician Name Role Phone Unavailable Primary Care Provider Unavailabl e Encounter Details Date Type Department Care Team (Late st Contact Info) Description 03/13/2017 Lab Requisition [facility] [address] [place] [address] Zain Smith MD [address] [place], [place] [phone] Encounter for general adult medical examination without [...] Description 12/19/2024 2:00 PM CDT Office Visit [facility] Oncology and Hematology - [place] [address] [place] [address] Gurjit Ayala MD [address] [facility] [address] [place] [address] documented as of this encounter Procedures Procedure Name Priority Date/Time Associated Diagnosis Comments CBC WITH DIFFERENTIAL Routine 03/13/2017 7:28 AM GROMMET MACHINE OPERATOR Encounter for general adult medical examination without abnormal findings PTT Routine 03/13/2017 7:28 AM GROMMET MACHINE OPERATOR Encounter for general adult medical examination without abnormal findings PROTIME-INR Routine 03/13/2017 7:28 AM GROMMET MACHINE OPERATOR Encounter for general adult medical examination without abnormal findings HEMOGLOBIN A1C Routine 03/13/2017 7:28 AM GROMMET MACHINE OPERATOR Encounter for general adult medical examination without abnormal findings documented in this encounter Results * PTT (03/13/2017 7:28 AM GROMMET MACHINE OPERATOR) PTT 33.4 24.4 - 36.4 seconds 03/13/2017 10:58 AM GROMMET MACHINE OPERATOR [facility] [employer] [facility] Comment: PTT Therapeutic Range: Heparin Level PTT (seconds) <0.10 units/mL <53 0.10 - 0.30 units/mL 53 - 67 0.30 - 0.70 units/mL* 67 - 95* 0.70 - 1.00 units/mL 95 - 116 *corresponds to therapeutic range for unfractionated heparin Blood Venipuncture / Unknown 03/13/2017 7:28 AM GROMMET MACHINE OPERATOR 03/13/2017 9:18 AM GROMMET MACHINE OPERATOR Zain Smith MD HEMATOLOGY ORDERABLES Final Result [facility]# [id number] [address] [place] [address] * PROTIME-INR (03/13/2017 7:28 AM GROMMET MACHINE OPERATOR) PROTIME 13.4 12.7 - 15.1 Seconds 03/13/2017 10:58 AM GROMMET MACHINE OPERATOR [facility] [employer] [facility] INR 1.0 0.9 - 1.1 03/13/2017 10:58 AM [facility] [employer] [facility] Blood Venipuncture / Unknown 03/13/2017 7:28 AM GROMMET MACHINE OPERATOR 03/13/2017 9:18 AM GROMMET MACHINE OPERATOR Narrative [facility] [employer] [facility] - 03/13/2017 10:58 AM GROMMET MACHINE OPERATOR INR Therapeutic Range: Adult: 2.0 - 3.0 for pulmonary embolism or prophylaxis against venous thrombosis or systemic embolization. 2.0 - 3.0 for patients with tissue heart valves. 2.5 - 3.5 for patients with mechanical heart valves or post ME. Pediatric (12 years and under): 1.5 - 3.0 Although the target range in children is not well established, INR values of 1.5 - 3.0 are recommended for most patients. Higher values have been used in children with prosthetic cardiac valves and hereditary clotting disorders. (<3 days) therapeutic ranges have not been established. Zain Smith MD HEMATOLOGY ORDERABLES Final Result [employer] [facility] - [facility] CLIA# [id number] [address] [place] [address] * (ABNORMAL) CBC WITH DIFFERENTIAL (03/13/2017 7:28 AM GROMMET MACHINE OPERATOR) WBC 5.0 4.0 - 9.8 K/uL 03/13/2017 10:15 AM [employer] [facility] - [facility] RBC 3.28(L) 4.50 - 5.40 M/uL 03/13/2017 10:15 AM [facility] - . [facility] HEMOGLOBIN 9.7(L) 13.6 - 16.5 g/dL 03/13/2017 10:15 AM [facility] - . [facility] HEMATOCRIT 30.7(L) 40.0 - 48.0 % 03/13/2017 10:15 AM [facility] [facility] - . [facility] MCV 93.6 82.0 - 99.0 fL 03/13/2017 10:15 AM [facility] [facility] - . [facility] MCH 29.6 27.2 - 32.6 pg 03/13/2017 10:15 AM [facility] - . [facility] MCHC 31.6 31.5 - 35.5 g/dL 03/13/2017 10:15 AM [employer] [facility] - . [facility] RDW 14.2 11.5 - 14.5 % 03/13/2017 10:15 AM [facility] - . [facility] RDW-STDEV 48.7 37.1 - 48.7 fL 03/13/2017 10:15 AM [facility] - . [facility] PLATELETS 261 140 - 350 K/uL 03/13/2017 10:15 AM [employer] - [facility] MPV 10.0 9.3 - 12.4 fL 03/13/2017 10:15 AM [facility] [employer] [facility] - [facility] NEUTROPHILS 33 % 03/13/2017 10:15 AM [facility] [employer] [facility] LYMPHOCYTES 43 % 03/13/2017 10:15 AM [facility] [employer] [facility] MONOCYTES 15 % 03/13/2017 10:15 AM [facility] [employer] [facility] EOSINOPHILS 7 % 03/13/2017 10:15 AM [facility] [employer] [facility] BASOPHILS 0 % 03/13/2017 10:15 AM [facility] [employer] [facility] IMMATURE GRANULOCYTES 2 % 03/13/2017 10:15 AM [facility] [employer] [facility] Comment:IG (Immature Granulo cyte) count includes Metamyelocytes, Myelocytes, and Promyelocytes NEUTROPHIL ABSOLUTE 1.68(L) 1.90 - 7.00 K/uL 03/13/2017 10:15 AM [facility] [employer] [facility] LYMPHOCYTE ABSOLUTE 2.14 0.70 - 4.50 K/uL 03/13/2017 10:15 AM [facility] [employer] [facility] MONOCYTE ABSOLUTE 0.74 0.10 - 1.30 K/uL 03/13/2017 10:15 AM [facility] [employer] - [facility] EOSINOPHIL ABSOLUTE 0.35 0.00 - 0.70 K/uL 03/13/2017 10:15 AM [facility] [employer] - [facility] BASOPHILS ABSOLUTE 0.02 0.00 - 0.20 K/uL 03/13/2017 10:15 AM [facility] [employer] [facility] IMMATURE GRANULOCYTES ABSOLUTE 0.10(H) 0.00 - 0.03 K/uL 03/13/2017 10:15 AM [facility] [employer] [facility] Blood Venipuncture / Unknown 03/13/2017 7:28 AM [facility] 03/13/2017 9:18 AM GROMMET MACHINE OPERATOR us Zain Smith MD HEMATOLOGY ORDERABLES Final Result [employer] [facility] CLIA# [id number] [address] [place] [address] * (ABNORMAL) HEMOGLOBIN A1C (03/13/2017 7:28 AM GROMMET MACHINE OPERATOR) HEMOGLOBIN A1C 6.3(H) 4.0 - 6.0 % 03/13/2017 10:54 AM GROMMET MACHINE OPERATOR [facility] EST. AVG GLUCOSE, A1C 134 mg/dL 03/13/2017 10:54 AM GROMMET MACHINE OPERATOR [facility] Blood Venipuncture / Unknown 03/13/2017 7:28 AM GROMMET MACHINE OPERATOR 03/13/2017 9:18 AM GROMMET MACHINE OPERATOR us Zain Smith MD CHEMISTRY ORDERABLES Final R esult [facility]# [id number] [address] [place] [address] documented in this encounter Visit Diagnoses Diagnosis Encounter for general adult medical examination without abnormal findings Routine general medical examination at a health care facility documented in this encounter
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
--- OUTSIDE RECORDS SUMMARY | 2024-10-28 13:42 | XMS_ITS | Clinical Summary ---
Author Organization [facility] Address [address] [place] [address] Care Team Providers Care Staffing Associate Name Role Phone Ashanti Dove NP Primary Care Provider [phone] Social History Tobacco Use Types Packs/Day Years [...] age to complete this topic Insurance MEDICARE [facility] Care Teams Staffing Associate Relationship Specialty Start Date End Date Ashanti Dove NP [address] [place] [address] PCP - General NURSE PRACTITIONER ADULT HEALTH 09/07/23
--- OUTSIDE RECORDS SUMMARY | 2024-10-28 13:42 | XMS_ITS | Referral Summary ---
Author Organization [address] Address [address] [place] [id number] Care Team Providers Care Metallurgical Or Materials Technician Name Role Phone Rosanne Emerson Primary Care Provider + Encounters Date Type Department Care Team Description 10/07/2024 Results Follow-Up [facility] Medical Group Cardiology at [address] [place] [phone] Mitch Dunn MD [facility] Mobile Cardiac Telemetry Event Monitor 09/25/2024 Orders Only [facility] Medical Group Cardiology [address] [facility] [address] [place] [phone] Corazon Rolon NP 09/19/2024 2:30 PM CDT Ancillary Procedure [facility] Medical [facility] Cardiology [address] [place] [address] [address] [place] [phone] Atrial fibrillation, unspecified type (HCC) 09/19/2024 Telephone [facility] Cardiology [address] [place] [address] [address] [place] [phone] Mitch Dunn MD 09/16/2024 Telephone [facility] Cardiology [address] [facility] [address] [place] [phone] Ashanti Dove NP 08/21/2024 11:10 AM CDT - 08/21/2024 11:59 PM CDT Hospital Encounter [facility] and Radiology [address] [place] [phone] Screening mammogram, encounter for; Encounter for screening [...] on file Legal Sex Female 7:43 PM RAND BUTTING MACHINE OPERATOR Gender Identity Not on file Sexual Orientation Not on file Last Filed Vital Signs Vital Sign Reading Time Taken Comments Blood Pressure 128/56 05/02/2024 3:43 PM RAND BUTTING MACHINE OPERATOR Pulse 64 05/02/2024 3:43 PM RAND BUTTING MACHINE OPERATOR Temperature - - Respiratory Rate - - Oxygen Saturation 96% 05/02/2024 3:43 PM RAND BUTTING MACHINE OPERATOR Inhaled Oxygen Concentration - - Weight 118.8 kg (262 lb) 05/02/2024 3:43 PM RAND BUTTING MACHINE OPERATOR Height 165.1 cm (5' 5) 05/02/2024 3:43 PM RAND BUTTING MACHINE OPERATOR Body Mass Index 43.6 05/02/2024 3:43 PM RAND BUTTING MACHINE OPERATOR Plan of Treatment Not on file Procedures [...] phy Narrative 10/02/2024 1:01 PM CDT AMBULATORY BOTANY TECHNICIAN REPORT Patient Name: Jocelyn Norman Date of [...] was used to complete this document, therefore, protocol officer variances may occur. Chava Meraz MD, [facility] 10/02/24 Procedure Note Chava Meraz MD - 10/02/2024 AMBULATORY BOTANY TECHNICIAN REPORT Patient Name: Jocelyn Norman Date of : 1950 Requesting Physician: Dr. Dunn Date of interpretation: 10/02/24 Type of monitor : One-week event monitor Date of the study/Enrollment period: 09/19/2024-09/25/2024 Indication: Unspecified atrial fibrillation Quality of the study: Adequate Interpretation: Predominant underlying rhythm is sinus rhythm, heart [id number] beats per minute, average heart rate 65 [...] software was used to complete this document, therefore,protocol officer variances may occur. Chava Meraz MD, [facility] 10/02/24 us Mitch Dunn MD CV [...] Recently Relevant to Health Maintenance Insurance MEDICARE [facility] MEDICARE [facility] Care Teams Metallurgical Or Materials Technician Relationship Specialty Start Date End Date Rosanne Emerson PA PCP - General Physician Scooter Mechanic 08/25/23
--- OUTSIDE RECORDS SUMMARY | 2024-10-28 13:43 | XMS_ITS | Encounter Summary ---
Author Organization [facility] Healthcare Address [address] [place] [address] Care Team Providers Care Processing Lead Name Role Phone Rosanne Emerson Primary Care Provider + Encounter Details Date Type Department Care Team (Late st Contact Info) Description 10/07/2024 Results Follow-Up [facility] Medical Group Cardiology at [place] [address] [facility] [address] [place] [phone] Mitch Dunn MD [address] [place] [address] [address] [place], [place] [phone] [facility] Mobile Cardiac Telemetry Event Monitor Social History Tobacco Use Types Packs/Day Years Used Date Smoking Tobacco: Former Smokeless Tobacco: Never Comments Unknown Sex and Gender Information Value Date Recorded Sex Assigned at Not on file Legal Sex Female 7:43 PM MANAGER ENVIRONMENTAL Gender Identity Not on file Sexual Orientation Not on file documented as of this encounter Plan of Treatment Not on file documented as of this encounter Visit Diagnoses Not on filedocumented in this encounter Care Teams Processing Lead Relationship Specialty Start Date End Date Rosanne Emerson PA PCP - General Physician High Lift Driver 08/25/23 documented as of this encounter
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
[2024-10-28 13:57] LABS: INR 2.5; Prothrombin Time 26.8 Seconds (11.1-14.7)
[2024-10-28 14:04] LABS: Alanine Aminotransferase 18 U/L (6-35); Albumin Level 3.4 g/dL (3.5-5.1); Alkaline Phosphatase 121 U/L (38-126); Anion Gap 10 mmol/L (4-12); Aspartate Amino Transferase 37 U/L (14-36); Bilirubin,Total 1.0 mg/dL (0.2-1.3); Blood Urea Nitrogen 15 mg/dL (7-17); Calcium 9.0 mg/dL (8.4-10.2); Carbon Dioxide 24 mmol/L (22-30); Chloride 106 mmol/L (98-107); Estimated CRCL calculation 54 ml/min; Estimated Glomerular Filt Rate 49; Glucose 199 mg/dL (65-110); Potassium 4.2 mmol/L (3.4-5.0); Sodium 140 mmol/L (137-145); Total Protein 7.5 g/dL (6.3-8.2)
[2024-10-28 14:12] LABS: NT Pro B Type Natriuretic Pept 8060 pg/mL (19.9-100)
[2024-10-28] MEDS: dilTIAZem 100 MG/100 ML 100 MG/100 ML BAG IV CONT (16:02)
--- NOTE | 2024-10-28 16:20 | ED_ITS ---
HPI - Arrhythmia/Palpitations General Chief Complaint: Arrhythmia/Palpitations Stated Complaint: afib Time Seen by Provider: 10/28/24 12:57 Source: patient and family Mode of arrival: ambulatory Limitations: no limitations History of Present Illness HPI narrative: 74-year-old with history of AFib on Xarelto, hypertension here with the complaints of having atrial fibrillation. 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 She states that she has not taken Xarelto for 4 days and resumed 5 days ago. Pt states she was at the PMD office was advised to goto the ER .She presently denies having any headache or chest pain or shortness of breath. Patient states that she was cardioverted twice in the last 1 yr. MD complaint: irregular heart beat and atrial fibrillation Onset (ago): day(s) (1) Duration: constant Severity: moderate Arrhythmia history: atrial fibrillation Associated symptoms: denies other symptoms Related Data Home Medications ?Medication ?Instructions ?Recorded ?Confirmed ?Last Taken ?Type sertraline 100 mg tablet 50 mg PO DAILY 09/30/20 10/28/24 10/28/24 History glipizide 10 mg tablet 20 mg PO HS 03/20/23 10/28/24 10/28/24 History loratadine 10 mg tablet 10 mg PO DAILY PRN Allergy Symptoms 03/20/23 10/28/24 09/16/24 History atorvastatin 40 mg tablet 40 mg PO HS 08/15/23 10/28/24 08/15/23 History furosemide 20 mg tablet 20 mg PO DAILY 08/15/23 10/28/24 Unknown History rivaroxaban 20 mg tablet (Xarelto) 20 mg PO Q24H 08/15/23 10/28/24 10/28/24 History empagliflozin 10 mg tablet 10 mg PO DAILY 09/18/23 10/28/24 10/28/24 History (Jardiance) biotin 5 mg tablet 5 mg PO DAILY 09/16/24 10/28/24 10/27/24 History cholecalciferol (vitamin D3) 25 25 mcg PO DAILY 09/16/24 10/28/24 10/27/24 History mcg (1,000 unit) capsule (Vitamin D3) ferrous sulfate 325 mg (65 mg 325 mg PO DAILY 09/16/24 10/28/24 10/27/24 History iron) tablet (Iron (ferrous sulfate)) mecobalamin (vitamin B12) 2,500 2,500 mcg PO DAILY 09/16/24 10/28/24 10/27/24 History mcg chewable tablet metoprolol succinate 25 mg 25 mg PO DAILY 09/16/24 10/28/24 10/28/24 History tablet,extended release 24 hr Allergies Allergy/AdvReac Type Severity Reaction Status Date / Time No Known Allergies Allergy Verified 10/28/24 16:10 Review of Systems 2 Review of Systems: All systems reviewed & are unremarkable except as noted in HPI and below Constitutional: Constitutional: Reports no additional constitutional complaints Eyes: Eyes: Reports no additional eye complaints ENT: Reports system reviewed and no additional complaints, except as documented Cardiovascular: Cardiovascular: Reports as per HPI Respiratory: Respiratory: Reports no additional respiratory complaints Gastrointestinal: Gastrointestinal: Reports no additional gastrointestinal complaints Musculoskeletal: Musculoskeletal: Reports no additional musculoskeletal complaints Integumentary/Breasts: Skin/Breast: Reports system reviewed and no additional complaints, except as docu Neurologic: Reports system reviewed and no additional complaints, except as documented Psychiatric: Psychiatric: Reports no additional psychiatric complaints [facility] Past Medical History Medical History Atrial fibrillation Dx Mar 2023; on anticoagulation Obesity Hypertension Chronic kidney disease Diabetes mellitus DM2 (diabetes mellitus, type 2) HTN (hypertension) Social History Social History Smoking packs per day: 0.25 Smoking cigarettes per day: 5.0 Years smoked: 4 Smoking pack-years: 1.00 Smoking status: Former smoker Tobacco type: cigarettes Second hand tobacco smoke exposure: No Smoking end date: 04/03/74 Alcohol intake: current Drinks per week: 2 Alcohol use details: last drink was July 15 - . drinks q3 weeks Substance use: never Substance use type: does not use Other substance usage details: occasional hit of marijuana Last use: 03/19/23 Do You Feel Safe in your Home?: Yes Lack of Transportation: No Lack of Food: Never True Current Housing: I Have Housing Concerned About Future Housing: No Difficulty Paying Gas/Electric Bills: No Difficulty Paying for Meds: No Currently Unemployed: No Education: Bachelor's Degree Difficulty w/ Childcare or Family Care: No Living arrangements: alone Gender identity (if verbalized by the patient): Female Spiritual care concerns: No Exam 2 Narrative: GENERAL: Well-appearing, well-nourished, and in no acute distress. HEAD: Normocephalic, atraumatic. EYES: PERRLA and EOMI. ENT: Nares clear, no rhinorrhea or epistaxis. Mucous membranes moist. NECK: Supple. CHEST: Clear to auscultation. No respiratory distress. HEART: Tachycardic and irregular ABDOMEN: Soft, nontender, nondistended, normal active bowel sounds. EXTREMITIES: Normal range of motion. No edema. SKIN: Warm, dry, no rash. NEURO: No focal deficits. Alert and oriented x3. PSYCH: Normal mood and affect. Course Course Emergency Course: Patient had initial heart rate in 140s I did given IV Lopressor 5 mg which brought heart rate down to 120s she still remained tachycardic started on Cardizem drip. I did review lab work with her in cardiology. Recommended her to be admitted to the hospitalist. Vital Signs Vital signs: Vital Signs Temperature 36.6 C 10/28/24 12:16 Pulse Rate 140 H 10/28/24 12:16 Respiratory Rate 20 10/28/24 12:16 Blood Pressure 135/91 H 10/28/24 12:16 Pulse Oximetry 99 10/28/24 12:16 Oxygen Delivery Room Air 10/28/24 12:16 Temperature 36.6 C 10/28/24 12:16 Pulse Rate 126 H 10/28/24 16:02 Respiratory Rate 22 H 10/28/24 14:39 Blood Pressure 134/97 H 10/28/24 16:02 Pulse Oximetry 98 10/28/24 14:39 Oxygen Delivery Room Air 10/28/24 12:16 MDM - Arrhythmia/Palpitations Differential Diagnosis Differential diagnosis: Likely palpitations, anxiety, artial fibrillation and artial flutter Medical Records Attestation: I reviewed the patient's medical records. Lab Data Attestation: I reviewed the patient's lab results. 10/28/24 13:28 10/28/24 13:28 Labs: Lab Results 10/28/24 Range/Units 13:28 WBC 6.5 (4.5-10.0) K/mm3 RBC 3.57 L (4.2-5.4) M/mm3 Hgb 10.5 L (12.0-15.0) g/dL Hct 34.2 L (37.0-47.0) % MCV 95.8 (80-100) fl MCH 29.4 (26-34) pg MCHC 30.7 L (32-36) g/dl RDW 14.8 H (11.5-14.5) % Plt Count 242 (150-375) k/mm3 MPV 10.6 H (7.4-10.4) fl Immature Gran % (Auto) 0.6 H (0-0.5) % Neut % (Auto) 64.2 (45.5-73.1) % Lymph % (Auto) 20.3 (18.3-44.2) % Gilpin % (Auto) 10.9 H (2.6-8.5) % Eos % (Auto) 3.2 (0-4.4) % Baso % (Auto) 0.8 (0.2-1.2) % Lymph # (Auto) 1.32 (0.9-3.2) K/mm3 Gilpin # (Auto) 0.7 H (0.1-0.6) K/mm3 Eos # (Auto) 0.2 (0-0.3) K/mm3 Baso # (Auto) 0.1 (0.0-0.1) K/mm3 Abs Immat Gran (auto) 0.04 H (0.00-0.031) K/mm3 Absolute Neuts (auto) 4.2 (1.3-6.7) K/mm3 Absolute Nucleated RBC 0.000 (0.0-0.012) K/mm3 Nucleated RBC % 0.0 (0.0-0.2) % PT 26.8 H (11.1-14.7) Seconds INR 2.5 Sodium 140 (137-145) mmol/L Potassium 4.2 (3.4-5.0) mmol/L Chloride 106 (98-107) mmol/L Carbon Dioxide 24 (22-30) mmol/L Anion Gap 10 (4-12) mmol/L BUN 15 D (7-17) mg/dL Creatinine 1.08 H (0.7-1.0) mg/dL Estim Creat Clear Calc 54 ml/min Estimated GFR 49 L (59 - ) Glucose 199 H (65-110) mg/dL Calcium 9.0 (8.4-10.2) mg/dL Total Bilirubin 1.0 (0.2-1.3) mg/dL AST 37 H (14-36) U/L ALT 18 (6-35) U/L Alkaline Phosphatase 121 (38-126) U/L NT-Pro-B Natriuret Pep 8060 H (19.9-100) pg/mL Total Protein 7.5 (6.3-8.2) g/dL Albumin 3.4 L (3.5-5.1) g/dL ECG Data EKG #1: ECG completion date: 10/28/24 ECG completion time: 12:20 EKG Interpretation: tachycardia (135), atrial fibrillation, no ectopy, NL axis and no acute changes Critical Care Time Critical Care Time Critical Care Time: Yes Total Critical Care Time: 45 Discharge Plan Discharge Clinical Impression: Atrial fibrillation with rapid ventricular response Patient Disposition: Still a Patient Condition: Stable Patient Language: Kazakh Prescriptions: No Action Jardiance 10 mg tablet 10 mg PO DAILY lisinopril 10 mg tablet 10 mg PO DAILY Qty: 30 8RF sertraline 100 mg tablet 50 mg PO DAILY atorvastatin 40 mg tablet 40 mg PO HS furosemide 20 mg tablet 20 mg PO DAILY Rx Instructions: 08/15/23: pt. states she has not been taking this med daily. Xarelto 20 mg tablet 20 mg PO Q24H glipizide 10 mg tablet 20 mg PO HS loratadine 10 mg Tablet 10 mg PO DAILY PRN (Reason: Allergy Symptoms) metoprolol succinate 25 mg tablet extended release 24 hr 25 mg PO DAILY biotin 5 mg tablet 5 mg PO DAILY mecobalamin (vitamin B12) 2,500 mcg tablet,chewable 2,500 mcg PO DAILY ferrous sulfate [Iron (ferrous sulfate)] 325 mg (65 mg iron) tablet 325 mg PO DAILY cholecalciferol (vitamin D3) [Vitamin D3] 25 mcg (1,000 unit) capsule 25 mcg PO DAILY Follow-up/Referrals: Ki,DEVI Britton [Primary Care Provider] - Time of Disposition: 16:36
--- OUTSIDE RECORDS SUMMARY | 2024-10-28 17:51 | XMS_ITS | Referral Summary ---
Author Organization [address] Address [address] [place] [phone] Care Team Providers Care Gauntlet Pairer Name Role Phone Rosanne Emerson Primary Care Provider + Encounters Date Type Department Care Team Description 10/07/2024 Results Follow-Up [facility] Medical Group Cardiology at [address] [place] [address] Mitch Dunn MD [facility] Mobile Cardiac Telemetry Event Monitor 09/25/2024 Orders Only [facility] Medical Group Cardiology [address] [facility] [address] [place] [phone] Corazon Rolon NP 09/19/2024 2:30 PM CDT Ancillary Procedure [facility] Medical [facility] Cardiology [address] [place] [address] [address] [place] [phone] Atrial fibrillation, unspecified type (HCC) 09/19/2024 Telephone [facility] Cardiology [address] [place] [address] [address] [place] [phone] Mitch Dunn MD 09/16/2024 Telephone [facility] Cardiology [address] [facility] [address] [place] [phone] Ashanti Dove NP 08/21/2024 11:10 AM CDT - 08/21/2024 11:59 PM CDT Hospital Encounter [facility] Imaging and Radiology [address] [place] [phone] Screening mammogram, encounter for; Encounter for screening [...] on file Legal Sex Female 7:43 PM ZIGZAG MACHINE OPERATOR Gender Identity Not on file Sexual Orientation Not on file Last Filed Vital Signs Vital Sign Reading Time Taken Comments Blood Pressure 128/56 05/02/2024 3:43 PM ZIGZAG MACHINE OPERATOR Pulse 64 05/02/2024 3:43 PM ZIGZAG MACHINE OPERATOR Temperature - - Respiratory Rate - - Oxygen Saturation 96% 05/02/2024 3:43 PM ZIGZAG MACHINE OPERATOR Inhaled Oxygen Concentration - - Weight 118.8 kg (262 lb) 05/02/2024 3:43 PM ZIGZAG MACHINE OPERATOR Height 165.1 cm (5' 5) 05/02/2024 3:43 PM ZIGZAG MACHINE OPERATOR Body Mass Index 43.6 05/02/2024 3:43 PM ZIGZAG MACHINE OPERATOR Plan of Treatment Not on [...] phy Narrative 10/02/2024 1:01 PM CDT AMBULATORY CUSTOMS INVESTIGATOR REPORT Patient Name: Jocelyn Norman Date of [...] was used to complete this document, therefore, neon glass blower variances may occur. Chava Meraz MD, [facility] 10/02/24 Procedure Note Chava Meraz MD - 10/02/2024 AMBULATORY CUSTOMS INVESTIGATOR REPORT Patient Name: Jocelyn Norman Date of : 1950 Requesting Physician: Dr. Dunn Date of interpretation: 10/02/24 Type of monitor : One-week event monitor Date of the study/Enrollment period: 09/19/2024-09/25/2024 Indication: Unspecified atrial fibrillation Quality of the study: Adequate Interpretation: Predominant underlying rhythm is sinus rhythm, heart adpy96-649 beats per minute, average heart rate 65 [...] software was used to complete this document, therefore,neon glass blower variances may occur. Chava Meraz MD, [facility] 10/02/24 us Mitch Dunn MD CV [...] PM CDT EXAMINATION: Screening Mammogram Bilateral W Koid: 08/21/2024 COMPARISON: Relevant prior studies available at [...] Recently Relevant to Health Maintenance Insurance MEDICARE [facility] Address: [address] [address] [place] [address] [facility] MEDICARE [facility] Care Teams Gauntlet Pairer Relationship Specialty Start Date End Date Rosanne Emerson PA PCP - General Physician Radiology Equipment Servicer 08/25/23
--- OUTSIDE RECORDS SUMMARY | 2024-10-28 17:51 | XMS_ITS | Clinical Summary ---
Author Organization [address] Address [address] [place] [address] Care Team Providers Care Office Nurse Name Role Phone Rosanne Emerson Primary Care [...] [facility] Medical Group Cardiology at [address] [place] [phone] Mitch Dunn MD [facility] Mobile Cardiac Telemetry Event Monitor 09/25/2024 Orders Only [facility] Medical [facility] Cardiology [address] [place] [address] [place] [phone] Corazon Rolon NP 09/19/2024 2:30 PM CDT Ancillary Procedure [facility] Cardiology [address] [place] [address] [place] [phone] Atrial fibrillation, unspecified type (HCC) 09/19/2024 Telephone [facility] Cardiology [address] [place] [address] [address] [place] [phone] Mitch Dunn MD 09/16/2024 Telephone [facility] Cardiology [address] [place] [address] [place] [phone] Ashanti Dove NP 08/21/2024 11:10 AM CDT - 08/21/2024 11:59 PM CDT Hospital Encounter [facility] Imaging and Radiology [address] [place] [address] Screening mammogram, encounter for; Encounter for screening [...] on file Legal Sex Female 7:43 PM OUTDOOR PURSUITS INSTRUCTOR Gender Identity Not on file Sexual Orientation Not on file Obstetrics History Last Filed Vital Signs Vital Sign Reading Time Taken Comments Blood Pressure 128/56 05/02/2024 3:43 PM OUTDOOR PURSUITS INSTRUCTOR Pulse 64 05/02/2024 3:43 PM OUTDOOR PURSUITS INSTRUCTOR Temperature - - Respiratory Rate - - Oxygen Saturation 96% 05/02/2024 3:43 PM OUTDOOR PURSUITS INSTRUCTOR Inhaled Oxygen Concentration - - Weight 118.8 kg (262 lb) 05/02/2024 3:43 PM OUTDOOR PURSUITS INSTRUCTOR Height 165.1 cm (5' 5) 05/02/2024 3:43 PM OUTDOOR PURSUITS INSTRUCTOR Body Mass Index 43.6 05/02/2024 3:43 PM OUTDOOR PURSUITS INSTRUCTOR Plan of Treatment Health Maintenance Due Date [...] phy Narrative 10/02/2024 1:01 PM CDT AMBULATORY CANDY MAKER REPORT Patient Name: Jocelyn Norman Date of [...] was used to complete this document, therefore, sanitation engineer variances may occur. Chava Meraz MD, [facility] 10/02/24 Procedure Note Chava Meraz MD - 10/02/2024 AMBULATORY CANDY MAKER REPORT Patient Name: Jocelyn Norman Date of : 1950 Requesting Physician: Dr. Dunn Date of interpretation: 10/02/24 Type of monitor : One-week event monitor Date of the study/Enrollment period: 09/19/2024-09/25/2024 Indication: Unspecified atrial fibrillation Quality of the study: Adequate Interpretation: Predominant underlying rhythm is sinus rhythm, heart somf36-330 beats per minute, average heart rate 65 [...] software was used to complete this document, therefore,sanitation engineer variances may occur. Chava Meraz MD, [facility] 10/02/24 Mitch Dunn MD [facility] CARDIAC SERVICES PRO CEDURES Final Result * Cardiology Document Scan (09/18/2024 2:40 PM CDT) Anatomical Region Laterality Modality Other Mitch Dunn MD [facility] CARDIAC SERVICES PRO CEDURES Final Result * Cardiology Document Scan (09/17/2024 2:29 PM CDT) Anatomical Region Laterality Modality Other Result [facility] Corazon Rolon NP CV CARDIAC SERVICES PROCEDUR [...] Capillary blood 07/28/2023 1 0:32 AM CDT [facility] Leonides Dunn MD POINT OF CARE TEST SARAVANAN CASTANEDA Final Result from Last 3 Months or Most Recently Relevant to Health Maintenance Insurance MEDICARE [facility] MEDICARE [employer] Care Teams Office Nurse Relationship Specialty Start Date End Date Rosanne Emerson PA PCP - General Physician Director Of Exhibit Development 08/25/23
--- OUTSIDE RECORDS SUMMARY | 2024-10-28 17:51 | XMS_ITS | Clinical Summary ---
Author Organization [facility] Address [address] [place] [address] Phone Care Team Providers Care Propellant Assembler Name Role Phone Unavailable Primary Care [...] Comments Blood Pressure 97/51 05/27/2024 2:14 PM BUSINESS SERVICES ASSOCIATE Pulse 53 05/27/2024 2:14 PM BUSINESS SERVICES ASSOCIATE Temperature 36.2 C (97.1 F) 05/27/2024 2:14 PM BUSINESS SERVICES ASSOCIATE Respiratory Rate 15 05/27/2024 2:14 PM BUSINESS SERVICES ASSOCIATE Oxygen Saturation 97% 05/27/2024 2:14 PM BUSINESS SERVICES ASSOCIATE Inhaled Oxygen Concentration - - Weight 120.2 kg (265 lb) 05/27/2024 2:14 PM BUSINESS SERVICES ASSOCIATE Height 165.1 cm (5' 5) 11/17/2023 10:49 AM CDT Body Mass Index 44.1 11/17/2023 10:49 AM CDT Plan of Treatment Upcoming Encounters Date Type Department Care Team (Late st Contact Info) Description 12/19/2024 2:00 PM CDT Office Visit [facility] Oncology and Hematology - [place] [address] [place] [address] Gurjit Ayala MD [address] [facility] [address] [place] [address] Health Maintenance Due Date Last [...] Comments HEMOGLOBIN A1C Routine 03/13/2017 7:28 AM BUSINESS SERVICES ASSOCIATE Encounter for general adult medical examination without abnormal findings from Last 3 Months or Most Recently Relevant to Health Maintenance Results * (ABNORMAL) HEMOGLOBIN A1C (03/13/2017 7:28 AM BUSINESS SERVICES ASSOCIATE) HEMOGLOBIN A1C 6.3(H) 4.0 - 6.0 % 03/13/2017 10:54 AM BUSINESS SERVICES ASSOCIATE [facility] EST. AVG GLUCOSE, A1C 134 mg/dL 03/13/2017 10:54 AM BUSINESS SERVICES ASSOCIATE [facility] Blood Venipuncture / Unknown 03/13/2017 7:28 AM BUSINESS SERVICES ASSOCIATE 03/13/2017 9:18 AM BUSINESS SERVICES ASSOCIATE us Zain Smith MD CHEMISTRY ORDERABLES Final R esult [facility] [employer] [facility] CLIA# [id number] [address] [place] [address] from Last 3 Months or Most Recently Relevant to Health Maintenance Insurance MEDICARE PART A AND B [facility] [id number]
--- OUTSIDE RECORDS SUMMARY | 2024-10-28 17:51 | XMS_ITS | Clinical Summary ---
Author Organization [facility] Address [address] [place] [address] Care Team Providers Care Machine Tool Builder Name Role Phone Ashanti Dove NP Primary Care Provider [phone] Social History Tobacco Use Types Packs/Day Years [...] age to complete this topic Insurance MEDICARE [facility] Care Teams Machine Tool Builder Relationship Specialty Start Date End Date Ashanti Dove NP [address] [place] [address] PCP - General NURSE PRACTITIONER ADULT HEALTH 09/07/23
--- OUTSIDE RECORDS SUMMARY | 2024-10-28 17:51 | XMS_ITS | Encounter Summary ---
Author Organization [facility] Address [address] [place] [address] Care Team Providers Care Information Security Architect Name Role Phone Unavailable Primary Care Provider Unavailabl e Encounter Details Date Type Department Care Team (Late st Contact Info) Description 03/13/[address] [facility] Laboratory Services S [facility] [address] [place] [address] Zain Smith MD [address] [place], [place] [id number] Encounter for general adult medical examination without [...] Description 12/19/2024 2:00 PM CDT Office Visit [facility] Oncology and Hematology - [place] [address] [place] [address] Gurjit Ayala MD [address] [facility] [address] [place] [address] documented as of this encounter Procedures Procedure Name Priority Date/Time Associated Diagnosis Comments CBC WITH DIFFERENTIAL Routine 03/13/2017 7:28 AM CLINICAL PHYSICIAN ASSISTANT Encounter for general adult medical examination without abnormal findings PTT Routine 03/13/2017 7:28 AM CLINICAL PHYSICIAN ASSISTANT Encounter for general adult medical examination without abnormal findings PROTIME-INR Routine 03/13/2017 7:28 AM CLINICAL PHYSICIAN ASSISTANT Encounter for general adult medical examination without abnormal findings HEMOGLOBIN A1C Routine 03/13/2017 7:28 AM CLINICAL PHYSICIAN ASSISTANT Encounter for general adult medical examination without abnormal findings documented in this encounter Results * PTT (03/13/2017 7:28 AM CLINICAL PHYSICIAN ASSISTANT) PTT 33.4 24.4 - 36.4 seconds 03/13/2017 10:58 AM CLINICAL PHYSICIAN ASSISTANT [facility] [employer] [facility] Comment: PTT Therapeutic Range: Heparin Level PTT (seconds) <0.10 units/mL <53 0.10 - 0.30 units/mL 53 - 67 0.30 - 0.70 units/mL* 67 - 95* 0.70 - 1.00 units/mL 95 - 116 *corresponds to therapeutic range for unfractionated heparin Blood Venipuncture / Unknown 03/13/2017 7:28 AM CLINICAL PHYSICIAN ASSISTANT 03/13/2017 9:18 AM CLINICAL PHYSICIAN ASSISTANT Zain Smith MD HEMATOLOGY ORDERABLES Final Result [facility]# [id number] [address] [place] [address] * PROTIME-INR (03/13/2017 7:28 AM CLINICAL PHYSICIAN ASSISTANT) PROTIME 13.4 12.7 - 15.1 Seconds 03/13/2017 10:58 AM CLINICAL PHYSICIAN ASSISTANT [facility] [employer] [facility] INR 1.0 0.9 - 1.1 03/13/2017 10:58 AM [facility] [employer] [facility] Blood Venipuncture / Unknown 03/13/2017 7:28 AM CLINICAL PHYSICIAN ASSISTANT 03/13/2017 9:18 AM CLINICAL PHYSICIAN ASSISTANT Narrative [facility] [employer] [facility] - 03/13/2017 10:58 AM CLINICAL PHYSICIAN ASSISTANT INR Therapeutic Range: Adult: 2.0 - 3.0 [...] Zain Smith MD HEMATOLOGY ORDERABLES Final Result [employer] LABORATORY SERVICES - [facility] CLIA# [id number] [address] [place] [place] [address] * (ABNORMAL) CBC WITH DIFFERENTIAL (03/13/2017 7:28 AM CLINICAL PHYSICIAN ASSISTANT) WBC 5.0 4.0 - 9.8 K/uL 03/13/2017 10:15 AM [employer] LABORATORY SERVICES - [facility] RBC 3.28(L) 4.50 - 5.40 M/uL 03/13/2017 10:15 AM [employer] LABORATORY SERVICES - . [facility] HEMOGLOBIN 9.7(L) 13.6 - 16.5 g/dL 03/13/2017 10:15 AM [employer] LABORATORY SERVICES - . [facility] HEMATOCRIT 30.7(L) 40.0 - 48.0 % 03/13/2017 10:15 AM [employer] LABORATORY SERVICES - . [facility] MCV 93.6 82.0 - 99.0 fL 03/13/2017 10:15 AM [employer] LABORATORY SERVICES - . [facility] MCH 29.6 27.2 - 32.6 pg 03/13/2017 10:15 AM [employer] LABORATORY SERVICES - . [facility] MCHC 31.6 31.5 - 35.5 g/dL 03/13/2017 10:15 AM [employer] LABORATORY SERVICES - . [facility] RDW 14.2 11.5 - 14.5 % 03/13/2017 10:15 AM [employer] LABORATORY SERVICES - . [facility] RDW-STDEV 48.7 37.1 - 48.7 fL 03/13/2017 10:15 AM [employer] LABORATORY SERVICES - . [facility] PLATELETS 261 140 - 350 K/uL 03/13/2017 10:15 AM [employer] - [facility] MPV 10.0 9.3 - 12.4 fL 03/13/2017 10:15 AM [facility] [employer] SERVICES - [facility] NEUTROPHILS 33 % 03/13/2017 10:15 AM [facility] [email or web address] [facility] - [facility] LYMPHOCYTES 43 % 03/13/2017 10:15 AM [facility] [employer] [facility] - [facility] MONOCYTES 15 % 03/13/2017 10:15 AM [facility] [employer] [facility] - [facility] EOSINOPHILS 7 % 03/13/2017 10:15 AM [facility] [employer] [facility] - [facility] BASOPHILS 0 % 03/13/2017 10:15 AM [facility] [employer] [facility] - [facility] IMMATURE GRANULOCYTES 2 % 03/13/2017 10:15 AM [facility] [employer] [facility] - [facility] Comment:IG (Immature Granulo cyte) count includes Metamyelocytes, Myelocytes, and Promyelocytes NEUTROPHIL ABSOLUTE 1.68(L) 1.90 - 7.00 K/uL 03/13/2017 10:15 AM [facility] [employer] [facility] - [facility] LYMPHOCYTE ABSOLUTE 2.14 0.70 - 4.50 K/uL 03/13/2017 10:15 AM [facility] [employer] [facility] - [facility] MONOCYTE ABSOLUTE 0.74 0.10 - 1.30 K/uL 03/13/2017 10:15 AM [facility] [employer] - [facility] EOSINOPHIL ABSOLUTE 0.35 0.00 - 0.70 K/uL 03/13/2017 10:15 AM [facility] [employer] - [facility] BASOPHILS ABSOLUTE 0.02 0.00 - 0.20 K/uL 03/13/2017 10:15 AM [facility] [employer] [facility] - [facility] IMMATURE GRANULOCYTES ABSOLUTE 0.10(H) 0.00 - 0.03 K/uL 03/13/2017 10:15 AM [facility] [employer] [facility] Blood Venipuncture / Unknown 03/13/2017 7:28 AM [facility] 03/13/2017 9:18 AM CLINICAL PHYSICIAN ASSISTANT us Zain Smith MD HEMATOLOGY ORDERABLES Final Result [email or web address] [facility] CLIA# [id number] [address] [place] [address] * (ABNORMAL) HEMOGLOBIN A1C (03/13/2017 7:28 AM CLINICAL PHYSICIAN ASSISTANT) HEMOGLOBIN A1C 6.3(H) 4.0 - 6.0 % 03/13/2017 10:54 AM CLINICAL PHYSICIAN ASSISTANT [facility] LABORATORY SERVICES [facility] EST. AVG GLUCOSE, A1C 134 mg/dL 03/13/2017 10:54 AM CLINICAL PHYSICIAN ASSISTANT [facility] LABORATORY [facility] Blood Venipuncture / Unknown 03/13/2017 7:28 AM CLINICAL PHYSICIAN ASSISTANT 03/13/2017 9:18 AM CLINICAL PHYSICIAN ASSISTANT [employer] Zain Smith MD CHEMISTRY ORDERABLES Final R esult [facility] LABORATORY [facility]# [id number] [address] [place] [address] documented in this encounter Visit Diagnoses Diagnosis Encounter for general adult medical examination without abnormal findings Routine general medical examination at a health care facility documented in this encounter
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
--- OUTSIDE RECORDS SUMMARY | 2024-10-28 17:51 | XMS_ITS | Clinical Summary ---
Author Organization [facility] Address [address] [place] [address] Phone Care Team Providers Care Corporate Relations Manager Name Role Phone Kirsten Pendleton MD Primary Care Provider [phone] Allergies No known active allergies Medications glipiZIDE [...] on file Legal Sex Female 9:55 AM [facility] Gender Identity Not on file Sexual [...] 06/21/2020 Influenza Vaccine (#1) 2024 Insurance MEDICARE [facility] Care Teams Corporate Relations Manager Relationship Specialty Start Date End Date Kirsten Pendleton MD [address] [place] [address] PCP - General Family Medicine 04/01/19
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
--- OUTSIDE RECORDS SUMMARY | 2024-10-28 17:52 | XMS_ITS | Encounter Summary ---
Author Organization [facility] Healthcare Address [address] [place] [address] Care Team Providers Care Airplane Pilot Helper Name Role Phone Rosanne Emerson Primary Care Provider + Encounter Details Date Type Department Care Team (Late st Contact Info) Description 10/07/2024 Results Follow-Up 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
--- OUTSIDE RECORDS SUMMARY | 2024-10-28 17:52 | XMS_ITS | Clinical Summary ---
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 MGR Gender Identity Not on file Sexual Orientation Not on file Last Filed Vital Signs Vital Sign Reading Time Taken Comments Blood Pressure 150/68 03/09/2017 7:45 AM DEPARTMENT MGR Pulse 105 03/08/2017 10:53 PM DEPARTMENT MGR Temperature 37.3 C (99.2 F) 03/09/2017 7:45 AM DEPARTMENT MGR Respiratory Rate 18 03/09/2017 7:45 AM DEPARTMENT MGR Oxygen Saturation 95% 03/09/2017 7:45 AM DEPARTMENT MGR Inhaled Oxygen Concentration - - Weight 115.7 kg (255 lb) 03/06/2017 2:20 PM DEPARTMENT MGR Height 167.6 cm (5' 6) 03/06/2017 2:20 PM DEPARTMENT MGR Body Mass Index 41.16 03/06/2017 2:20 PM DEPARTMENT MGR Plan of Treatment Health Maintenance Due Date [...] this topic Medical Devices Implanted Type Area Binman Device Identifier Shelf Expiration Date Model / Serial / Lot Cmnt Bn Endrn Sst Gnta 40gm Hvisc - [id number] Implanted:Qty: 2 on 07/04/2016 by Rian Foss MD at [facility] IMPLANT Left: Knee JNJ / [employer] 01/31/2018 [id number] / / [id number] Cmnt Bn Cmw2 20gm Strl - [id number] Implanted:Qty: 1 on 07/04/2016 by Rian Foss MD at [facility] IMPLANT Left: Knee [employer] / [employer] 08/31/2017 [id number] / / [id number] Cmpnt Ptlr 38mm Medialized Dome Attune - [id number] Implanted:Qty: 1 on 07/04/2016 by Rian Foss MD at [facility] IMPLANT Left: Knee [employer] / [employer] 01/31/2021 [id number] / / [id number] Cmnt Bn Sst Gnta Hvisc 40gm - [id number] Implanted:Qty: 1 on 03/06/2017 by Rian Foss MD at [facility] IMPLANT Right: Knee [employer] / [employer] 12/31/2017 [id number] / [id number] / [id number] Cmnt Bn Sst Gnta Hvisc 40gm - [id number] Implanted:Qty: 1 on 03/06/2017 by Rian Foss MD at [facility] IMPLANT Right: Knee JNJ / [employer] 01/31/2018 [id number] / [id number] / [id number] Dome Ptlr 35mm Attune Kn Aox Cmnt - [id number] Implanted:Qty: 1 on 03/06/2017 by Rian Foss MD at [facility] IMPLANT Right: Knee JNJ / [employer] 12/01/2021 [id number] / 1518-20-035 / [id number] Attune Tibial Base Size 6 Cemented Implanted:Qty: 1 on 07/04/2016 by Rian Foss MD at [facility] Left: Knee [employer] 03/02/2026 [id number] / / [id number] Attune Tibial Insert Size 6, 8mm Implanted:Qty: 1 on 07/04/2016 by Rian Foss MD at [facility] Left: Knee [employer] 10/31/2017 [id number] / / [id number] Attune Femoral Size 6, Left Cemented Implanted:Qty: 1 on 07/04/2016 by Rian Foss MD at [facility] Left: Knee [employer] 03/02/2026 [id number] / / [id number] Attune Tibial Base Implanted:Qty: 1 on 03/06/2017 by Rian Foss MD at [facility] Right: Knee [employer] 07/01/2026 [id number] / 1506-40-006 / [id number] Attune Knee System Revision Cemented Stem Implanted:Qty: 1 on 03/06/2017 by Rian Foss MD at [facility] Right: Knee [employer] 12/31/2026 [id number] / [id number] / [id number] Attune Femoral Posterior Stabilized Implanted:Qty: 1 on 03/06/2017 by Rian Foss MD at [facility] Right: Knee [employer] 07/01/2026 150 / 150 / [id number] Attune Tibial Insert Implanted:Qty: 1 on 03/06/2017 by Rian Foss MD at [facility] Right: Knee [employer] 11/30/2021 [id number] / [id number] / [id number] Insurance [facility] MEDICARE Member Subscriber Plan / Payer (Ef fective 2014-Present) Name:Jocelyn Norman Member ID:[id number] Relation to Subscriber:Self Name:Jocelyn Norman Subscriber ID:[id number] Payer ID:[id number] Group ID:Not on file Type:Not on file Address: [facility] [address] [facility] [employer] [facility], [place] [address] Care Teams Code And Test Clerk Relationship Specialty Start Date End Date Bridget Trinidad APRN [address] [place] [address] PCP - General Advanced Practice Nurse 06/17/16
--- NOTE | 2024-10-28 18:24 | PC.NURSE ---
Patient arrived to floor diltiazem drip running at 5, telemetry applied.
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
[2024-10-28 20:32] LABS: Troponin I < 0.012 ng/mL (0.000-0.034)
[2024-10-28] MEDS: SODIUM CHLORIDE 0.9% IV 1,000 ML 75 ML IV CONT (21:20)
[2024-10-28 23:43] LABS: Troponin I < 0.012 ng/mL (0.000-0.034)
[2024-10-29] VITALS (24 sets, daily range): BP systolic 103–135; BP diastolic 48–90; PULSE 84–133; RESP 12–21; TEMP 36.4–37.1; O2SAT 96–100
[2024-10-29] MEDS: GABAPENTIN 300 MG CAPSULE PO ×4 (02:52→23:40)
[2024-10-29] MEDS: ACETAMINOPHEN 325 MG TABLET 650 MG PO ×2 (04:18→23:43)
[2024-10-29 04:24] LABS: Hematocrit 31.4 % (37.0-47.0); Hemoglobin 9.4 g/dL (12.0-15.0); Immature Granulocyte Percent A 0.4 % (0-0.5); Lymphocytes Absolute Auto 1.59 K/mm3 (0.9-3.2); Mean Corpuscular HGB Conc 29.9 g/dl (32-36); Mean Corpuscular Hemoglobin 28.9 pg (26-34); Mean Corpuscular Volume 96.6 fl (80-100); Nucleated Red Blood Cells Absolute Auto 0.000 K/mm3 (0.0-0.012); Nucleated Red Blood Cells Perc 0.0 % (0.0-0.2); Platelet Count Result 229 k/mm3 (150-375); Red Blood Count 3.25 M/mm3 (4.2-5.4); White Blood Count 5.3 K/mm3 (4.5-10.0)
[2024-10-29 04:47] LABS: Anion Gap 7 mmol/L (4-12); Blood Urea Nitrogen 15 mg/dL (7-17); Calcium 8.7 mg/dL (8.4-10.2); Carbon Dioxide 25 mmol/L (22-30); Chloride 106 mmol/L (98-107); Estimated CRCL calculation 49 ml/min; Estimated Glomerular Filt Rate 49; Glucose 112 mg/dL (65-110); Magnesium 1.9 mg/dL (1.6-2.3); Potassium 4.1 mmol/L (3.4-5.0); Sodium 138 mmol/L (137-145)
[2024-10-29] MEDS: dilTIAZem 100 MG/100 ML 100 MG/100 ML BAG IV CONT (09:26)
[2024-10-29] MEDS: FUROSEMIDE INJ 40 MG/4 ML VIAL IV PUSH (09:27)
[2024-10-29] MEDS: INSULIN ASPART (*BKC) 100 UNITS/ML SUB-Q (12:25)
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
--- NOTE | 2024-10-29 14:58 | PM.IMPN ---
Progress Note: A&P Assessment and Plan (1) Atrial fibrillation with rapid ventricular response: Code(s): I48.91 - Unspecified atrial fibrillation Status: Acute Assessment and Plan: - EKG, initial: AFib RVR, rate 135, minimal ST depression. - hx of Afib on metoprolol and Xarelto. Will hold home metoprolol and diltiazem, now on Cardizem gtt and rate controlled. Continue Xarelto. - chart reviewed, recent admission for AFib RVR with ELLY guided cardioversion on 09/18. Patient's heart rate 40s to 50s post cardioversion, resumed on metoprolol 25 mg daily with no dose adjustments at that time given heart rate. - Cardizem gtt at 5 mg/hr, HR 140 -> 99 - cardiology consulted - reporting shortness of breath, high suspicion this is secondary to significant tachycardia. Will check CXR. - admission to IMU with telemetry monitoring 10/29/24: Cardiology has consulted and started Metoprolol tartrate 25 mg TID. Pt remains in A-fib at this time with variable rate. Cardiology is following along with medicine. Remains on Cardizem drip. (2) Elevated brain natriuretic peptide (BNP) level: Code(s): R79.89 - Other specified abnormal findings of blood chemistry Status: Acute Assessment and Plan: - BNP 8060 - most recent echo (09/17/24): Normal LV systolic function, estimated EF 55-60%, grade 3 diastolic dysfunction, mild valvular disease. - currently on Lasix 20 mg daily will continue as Lasix 40 mg IV due to evidence of some extra volume on CXR. - monitor I&Os and daily weights - trend renal function BNP likely elevated secondary to tachycardia and missed diuretic doses. 10/29/24: Suspect due to G3 diastolic dysfunction. Continue diuretics. (3) DM2 (diabetes mellitus, type 2): Qualifiers: Diabetes mellitus terminal system operator insulin use: without terminal system operator use Diabetes mellitus complication status: without complication Qualified Code(s): E11.9 - Type 2 diabetes mellitus without complications Code(s): E11.9 - Type 2 diabetes mellitus without complications Status: Chronic Assessment and Plan: - hypoglycemia protocol - POC blood glucose ACHS - home medication: Hold Jardiance, glipizide. Continue Lantus 32 units HS - correct regimen ordered - high dose TIDWM, based off BMI - A1C 8.1% on 09/17/2024 - consult to nursing educator. needs re-education on her home DM medications. 10/29/24: Continue current regimen. Fasting glucose this AM noted to be 119. Appears to have achieved good control. (4) Chronic kidney disease, stage 3b: Code(s): N18.32 - Chronic kidney disease, stage 3b Status: Chronic Assessment and Plan: - creatinine 1.08 and GFR 49 upon admission on 10/28 - baseline creatinine appears to be 1.3-1.4 - follows with Stephanie GOODMAN - trend renal function - trend electrolytes, correct as needed 10/29/24: Renal function with CR/BUN 1.08/15 respectively. She is improved over her baseline creatinine of 1.3-1.4. Hold renal offending agents unless otherwise needed. (5) Anemia: Qualifiers: Anemia type: due to chronic kidney disease Chronic kidney disease stage: stage 3 (moderate) Chronic kidney disease stage 3 subtype: stage 3b (GFR 30-44) Qualified Code(s): N18.32 - Chronic kidney disease, stage 3b; D63.1 - Anemia in chronic kidney disease Code(s): D64.9 - Anemia, unspecified Status: Chronic Assessment and Plan: - Hgb 10.5 - Hx of CKD, likely anemia due to chronic illness/CKD - transfuse if <7 - trend H&H 10/29/24: Stable H&H at 9.4/31.4. (6) HTN (hypertension): Qualifiers: Hypertension type: unspecified Qualified Code(s): I10 - Essential (primary) hypertension Code(s): I10 - Essential (primary) hypertension Status: Chronic Assessment and Plan: - chronic, currently 111/59 - hold home medications -> lisinopril and metoprolol. - monitor 10/29/24: Pt on metoprolol tartrate 25 mg TID Continue to hold Lisinopril for now. Renal function noted to be improving without Lisinopril. Time Spent With Patient Time with patient: 25 - 35 minutes Subjective Date/time seen: 10/29/24 14:58 Interval history: Pt was re-examined after presenting to the ER with Dyspnea and in Fib RVR. She had missed several days doses of chronic medications including her Metoprolol and Xarelto as the air conditioning went out in her home and she only wanted to lay in bed and not do anything. This was for a four day stretch. She has been back on her meds for a total of five days but still developed the symptoms. She was admitted on Cardizem drip and today Cardiology consulted and started Metoprolol Tartrate 25 mg TID. Prior to changing/adding any meds they wanted to see how her heart responded to this change. Pt currently remains in Atrial fibrillation with rate fluctuating. She has no new complaints, symptoms to report or any other acute changes in her overall condition. Review of Systems Review of Systems: All systems reviewed & are unremarkable except as noted in HPI and below Exam Const: General: comfortable and no acute distress Other: Morbidly obese female pt HENMT: Mouth: Yes moist mucous membranes Eyes: General: appearance normal, both eyes and all related structures Neck: Neck: supple and no JVD Carotids: no bruits Lymphatic: lymphadenopathy not noted Resp: Effort & Inspection: normal respiratory effort Auscultation: clear to auscultation bilaterally Cardio: Rate: regular rate Rhythm: abnormal rhythm Other: Irregular rhythm and variable rate currently. No murmurs. GI: GI Palp: Yes Soft to palpation and No Tenderness to palpation present (GI) Auscultation: normal bowel sounds Skin: General skin exam: normal color and no rashes or lesions noted Wounds: no wounds Neuro: Speech: normal speech Motor exam (neuro): 5/5 motor strength present throughout Sensory Exam: normal sensation Other: A&O x4 Extrem: Other: LE edema without pitting 2+, symmetric. FROM Psych: Mental Status: mental status grossly normal Affect: normal affect Objective Data Vital Signs Vital Signs: Vital Signs - 24 hr 10/28/24 16:02 10/28/24 17:09 10/28/24 17:51 Temperature 97.6 F Pulse Rate 126 H 94 68 Respiratory Rate 20 16 Blood Pressure 134/97 H 136/94 H 95/60 L Pulse Oximetry 99 99 Oxygen Delivery 10/28/24 18:00 10/28/24 19:42 10/28/24 20:00 Temperature 98.3 F Pulse Rate 99 110 H Respiratory Rate 20 Blood Pressure 111/59 L Pulse Oximetry 98 Oxygen Delivery Room Air 10/28/24 20:00 10/28/24 20:00 10/28/24 22:16 Temperature Pulse Rate 90 110 H 88 Respiratory Rate Blood Pressure 111/59 L Pulse Oximetry Oxygen Delivery 10/28/24 23:44 10/28/24 23:46 10/29/24 00:00 Temperature 98.1 F 98.1 F Pulse Rate 98 98 Respiratory Rate 20 20 Blood Pressure 131/75 131/75 Pulse Oximetry 98 98 Oxygen Delivery Room Air 10/29/24 00:00 10/29/24 00:00 10/29/24 02:00 Temperature Pulse Rate 98 94 88 Respiratory Rate Blood Pressure 131/75 Pulse Oximetry Oxygen Delivery 10/29/24 02:55 10/29/24 03:59 10/29/24 04:00 Temperature 98.2 F Pulse Rate 116 H 101 H Respiratory Rate 21 H Blood Pressure 133/90 Pulse Oximetry 97 Oxygen Delivery Room Air 10/29/24 04:00 10/29/24 04:00 10/29/24 04:01 Temperature Pulse Rate 103 H 101 H 99 Respiratory Rate Blood Pressure 133/90 Pulse Oximetry Oxygen Delivery 10/29/24 05:58 10/29/24 07:45 10/29/24 08:00 Temperature 97.8 F Pulse Rate 90 92 100 Respiratory Rate 16 Blood Pressure 130/81 130/81 Pulse Oximetry 96 Oxygen Delivery 10/29/24 08:00 10/29/24 08:00 10/29/24 09:26 Temperature 97.8 F Pulse Rate 92 98 119 H Respiratory Rate 16 Blood Pressure 130/81 Pulse Oximetry 96 Oxygen Delivery 10/29/24 10:00 10/29/24 10:00 10/29/24 10:00 Temperature 98.5 F Pulse Rate 133 H 107 H 118 H Respiratory Rate 16 Blood Pressure 103/55 L 103/55 L Pulse Oximetry 98 Oxygen Delivery 10/29/24 11:46 10/29/24 12:00 10/29/24 12:00 Temperature 97.6 F Pulse Rate 110 H 118 H Respiratory Rate 16 Blood Pressure 126/89 126/89 Pulse Oximetry 99 Oxygen Delivery Room Air 10/29/24 12:00 10/29/24 14:00 Temperature 97.6 F 98.2 F Pulse Rate 110 H 115 H Respiratory Rate 16 12 Blood Pressure 126/89 112/82 Pulse Oximetry 99 98 Oxygen Delivery Intake/Output Intake/Output: Intake & Output 10/26/24 10/27/24 10/28/24 10/29/24 23:59 23:59 23:59 23:59 Intake Total 19.8 832.8 Output Total 300 Balance 19.8 532.8 Meds/Results Medications: Active Medications Generic Name Dose Route Start Last Admin Trade Name Freq PRN Reason Stop Dose Admin Acetaminophen 650 mg 10/28/24 16:37 10/29/24 04:18 Acetaminophen 325 Mg Tablet PO 650 mg Q4H PRN Administration Mild Pain (1-3) or Fever Dextrose 12.5 gm 10/28/24 19:50 Dextrose 50% 25 Gm/50 Ml Syringe IV PUSH PRN PRN Hypoglycemia Protocol Furosemide 40 mg 10/29/24 09:00 10/29/24 09:27 Furosemide Inj 40 Mg/4 Ml Vial IV PUSH 40 mg DAILY DESI Administration Gabapentin 300 mg 10/28/24 23:10 10/29/24 12:33 Gabapentin 300 Mg Capsule PO 300 mg Q8HR DESI Administration Glucagon 1 mg 10/28/24 19:50 Glucagon For Inj 1 Mg Vial IM PRN PRN Hypoglycemia Protocol Glucose 15 gm 10/28/24 19:50 Glucose Oral Gel 15 Gm Of Glucse In 37.5 Gm Tube PO PRN PRN Hypoglycemia Protocol Dextrose 1,000 mls @ 100 mls/hr 10/28/24 19:50 Dextrose 5% 1,000 Ml IVPB PRN PRN Hypoglycemia Protocol Diltiazem HCl 100 mg in 100 mls @ 5 mls/hr 10/29/24 02:30 10/29/24 12:00 Cardizem 100 Mg/100 Ml IV CONT 5 mg/hr .Q20H DESI 5 mls/hr Infusion 5 MG/HR Insulin Aspart 4 - 8 units 10/29/24 08:00 10/29/24 12:25 Insulin Aspart (*Bkc) 100 Units/Ml SUB-Q 5 units TIDWM DESI Administration Protocol Metoprolol Tartrate 25 mg 10/29/24 14:20 Metoprolol Tartrate 25 Mg Tablet PO Q8HR DESI Rivaroxaban 20 mg 10/29/24 17:00 Rivaroxaban 20 Mg Tablet PO DAILY@1700 DESI Radiology Results: ITS Impressions Chest X-Ray 10/28/24 20:34 IMPRESSION: 1. Interstitial and mild airspace opacities in dependent bilateral mid and lower lung zones and favor mild pulmonary edema over pneumonia. 2. Small bilateral pleural effusions. Labs Labs: Laboratory Results - last 24 hr 10/28/24 10/28/24 10/29/24 20:01 22:58 02:48 WBC RBC Hgb Hct MCV MCH MCHC RDW Plt Count MPV Immature Gran % (Auto) Neut % (Auto) Lymph % (Auto) [place] % (Auto) Eos % (Auto) Baso % (Auto) Lymph # (Auto) [place] # (Auto) Eos # (Auto) Baso # (Auto) Abs Immat Gran (auto) Absolute Neuts (auto) Absolute Nucleated RBC Nucleated RBC % Sodium Potassium Chloride Carbon Dioxide Anion Gap BUN Creatinine Estim Creat Clear Calc Estimated GFR Glucose POC Capillary Glucose 51 L* Calcium Magnesium Troponin I < 0.012 < 0.012 10/29/24 10/29/24 10/29/24 03:04 03:22 03:47 WBC 5.3 RBC 3.25 L Hgb 9.4 L Hct 31.4 L MCV 96.6 MCH 28.9 MCHC 29.9 L RDW 14.8 H Plt Count 229 MPV 10.2 Immature Gran % (Auto) 0.4 Neut % (Auto) 48.7 Lymph % (Auto) 30.0 [place] % (Auto) 13.0 H Eos % (Auto) 7.0 H Baso % (Auto) 0.9 Lymph # (Auto) 1.59 [place] # (Auto) 0.7 H Eos # (Auto) 0.4 H Baso # (Auto) 0.1 Abs Immat Gran (auto) 0.02 Absolute Neuts (auto) 2.6 Absolute Nucleated RBC 0.000 Nucleated RBC % 0.0 Sodium 138 Potassium 4.1 Chloride 106 Carbon Dioxide 25 Anion Gap 7 BUN 15 Creatinine 1.08 H Estim Creat Clear Calc 49 Estimated GFR 49 L Glucose 112 H POC Capillary Glucose 68 93 Calcium 8.7 Magnesium 1.9 Troponin I 10/29/24 10/29/24 07:20 11:36 WBC RBC Hgb Hct MCV MCH MCHC RDW Plt Count MPV Immature Gran % (Auto) Neut % (Auto) Lymph % (Auto) [place] % (Auto) Eos % (Auto) Baso % (Auto) Lymph # (Auto) [place] # (Auto) Eos # (Auto) Baso # (Auto) Abs Immat Gran (auto) Absolute Neuts (auto) Absolute Nucleated RBC Nucleated RBC % Sodium Potassium Chloride Carbon Dioxide Anion Gap BUN Creatinine Estim Creat Clear Calc Estimated GFR Glucose POC Capillary Glucose 119 H 262 H Calcium Magnesium Troponin I Quality VTE Prophylaxis VTE prophylaxis: pharmacologic ordered
[2024-10-29] MEDS: METOPROLOL TARTRATE 25 MG TABLET PO ×2 (14:59→23:40)
[2024-10-29] MEDS: RIVAROXABAN 20 MG TABLET PO (18:20)
[2024-10-30] VITALS (35 sets, daily range): BP systolic 109–135; BP diastolic 53–93; PULSE 73–124; RESP 17–20; TEMP 36.6–37.3; O2SAT 94–100
[2024-10-30] MEDS: dilTIAZem 100 MG/100 ML 100 MG/100 ML BAG IV CONT (03:27)
[2024-10-30 04:10] LABS: Hematocrit 31.2 % (37.0-47.0); Hemoglobin 9.5 g/dL (12.0-15.0); Immature Granulocyte Percent A 0.4 % (0-0.5); Lymphocytes Absolute Auto 2.25 K/mm3 (0.9-3.2); Mean Corpuscular HGB Conc 30.4 g/dl (32-36); Mean Corpuscular Hemoglobin 28.9 pg (26-34); Mean Corpuscular Volume 94.8 fl (80-100); Nucleated Red Blood Cells Absolute Auto 0.000 K/mm3 (0.0-0.012); Nucleated Red Blood Cells Perc 0.0 % (0.0-0.2); Platelet Count Result 220 k/mm3 (150-375); Red Blood Count 3.29 M/mm3 (4.2-5.4); White Blood Count 7.1 K/mm3 (4.5-10.0)
[2024-10-30 04:23] LABS: INR 2.6; Partial Thromboplastin Time 47.3 Seconds (22.3-36.8); Prothrombin Time 27.5 Seconds (11.1-14.7)
[2024-10-30 05:01] LABS: Alanine Aminotransferase 15 U/L (6-35); Albumin Level 3.2 g/dL (3.5-5.1); Alkaline Phosphatase 112 U/L (38-126); Anion Gap 6 mmol/L (4-12); Aspartate Amino Transferase 27 U/L (14-36); Bilirubin,Total 0.5 mg/dL (0.2-1.3); Blood Urea Nitrogen 21 mg/dL (7-17); Calcium 8.8 mg/dL (8.4-10.2); Carbon Dioxide 25 mmol/L (22-30); Chloride 102 mmol/L (98-107); Estimated CRCL calculation 43 ml/min; Estimated Glomerular Filt Rate 42; Glucose 144 mg/dL (65-110); Magnesium 1.9 mg/dL (1.6-2.3); Potassium 3.8 mmol/L (3.4-5.0); Sodium 133 mmol/L (137-145); Total Protein 6.7 g/dL (6.3-8.2)
[2024-10-30] MEDS: GABAPENTIN 300 MG CAPSULE PO ×3 (05:11→22:00)
[2024-10-30] MEDS: METOPROLOL TARTRATE 25 MG TABLET PO ×3 (05:11→21:22)
--- NOTE | 2024-10-30 08:01 | PM.PNCARD ---
Progress Note: A&P Assessment and Plan (1) Atrial fibrillation with rapid ventricular response: Code(s): I48.91 - Unspecified atrial fibrillation Status: Acute Plan Paroxysmal AFib with RVR status post cardioversion x2 (after 1st DCCV she remained in sinus rhythm for a year; 2nd DCCV was on 09/18/2024 with recurrence of AFib in a month) Hypertension Hyperlipidemia Plan: She remains tachycardic with rates in the 130s while on metoprolol 25 mg p.o. q.8 hours and Cardizem drip 5 milligrams/hours. Unable to increase rate control medications due to soft blood pressures with his BP in the 110s. Also she has already had 2 DCCV in the past with recurrence of AFib. Hence, recommend loading with amiodarone before DCCV again to increase her chance of remaining in sinus rhythm if she were to cardiovert. She recently missed doses of her Xarelto. She will need ELLY to rule out clot prior to DCCV Continue metoprolol 25 mg q.8 hours Wean off Cardizem drip after starting amiodarone Continue Xarelto Continue Lasix 40 mg IV daily. Check weights, ins and outs, and renal function daily Check and replace electrolytes to keep potassium greater than 4 and magnesium greater than 2 Subjective Date/time seen: 10/30/24 08:01 Interval history: Reason for encounter: AFib with RVR Interval history: Patient reports dizziness off and on. No chest pain, shortness of breath, palpitations. Telemetry shows AFib with RVR with rates in the 130s at rest while on metoprolol 25 mg q.8 hours and Cardizem drip at 5 mg per hour. Review of Systems Cardiovascular: Comments: As per HPI Respiratory: Comments: As per HPI Exam Narrative: General: Alert oriented x3, no acute distress Neck: Supple, JVD + Chest: Bilaterally clear to auscultation, no rales or rhonchi Cardiac: S1, S2 +, irregularly irregular rhythm, no murmurs or rubs Extremities: Bilateral lower extremity edema 2 to 3+, no skin rash Neurologic: Alert and oriented x3, no focal neurological deficits Objective Data Vital Signs Vital Signs: Vital Signs - 24 hr 10/29/24 09:26 10/29/24 10:00 10/29/24 10:00 Temperature 36.9 C Pulse Rate 119 H 133 H 107 H Respiratory Rate 16 Blood Pressure 103/55 L 103/55 L Pulse Oximetry 98 Oxygen Delivery 10/29/24 10:00 10/29/24 11:46 10/29/24 12:00 Temperature 36.4 C Pulse Rate 118 H 110 H Respiratory Rate 16 Blood Pressure 126/89 Pulse Oximetry 99 Oxygen Delivery Room Air 10/29/24 12:00 10/29/24 12:00 10/29/24 12:00 Temperature 36.4 C Pulse Rate 118 H 110 H 123 H Respiratory Rate 16 Blood Pressure 126/89 126/89 Pulse Oximetry 99 Oxygen Delivery 10/29/24 14:00 10/29/24 14:00 10/29/24 14:00 Temperature 36.8 C Pulse Rate 115 H 111 H 129 H Respiratory Rate 12 Blood Pressure 112/82 112/82 Pulse Oximetry 98 Oxygen Delivery 10/29/24 14:59 10/29/24 15:56 10/29/24 16:00 Temperature 36.8 C Pulse Rate 126 H 117 H Respiratory Rate 16 Blood Pressure 109/73 Pulse Oximetry 97 Oxygen Delivery Room Air 10/29/24 16:00 10/29/24 16:00 10/29/24 18:00 Temperature 37.1 C Pulse Rate 110 H 125 H 100 Respiratory Rate 16 Blood Pressure 109/73 126/48 L Pulse Oximetry 98 Oxygen Delivery 10/29/24 18:00 10/29/24 18:00 10/29/24 19:39 Temperature Pulse Rate 110 H 99 Respiratory Rate Blood Pressure 126/48 L Pulse Oximetry Oxygen Delivery Room Air 10/29/24 19:50 10/29/24 20:00 10/29/24 20:49 Temperature 36.8 C Pulse Rate 102 H 89 102 H Respiratory Rate 16 Blood Pressure 131/75 131/75 Pulse Oximetry 100 Oxygen Delivery 10/29/24 22:00 10/29/24 22:00 10/29/24 22:16 Temperature 36.9 C Pulse Rate 107 H 107 H 84 Respiratory Rate 17 Blood Pressure 135/83 135/83 Pulse Oximetry 99 Oxygen Delivery 10/29/24 23:40 10/29/24 23:54 10/30/24 00:00 Temperature 36.9 C Pulse Rate 107 H 91 Respiratory Rate 16 Blood Pressure 123/59 L Pulse Oximetry 99 Oxygen Delivery Room Air 10/30/24 00:00 10/30/24 00:00 10/30/24 01:53 Temperature Pulse Rate 106 H 91 98 Respiratory Rate Blood Pressure 123/59 L Pulse Oximetry Oxygen Delivery 10/30/24 02:00 10/30/24 03:17 10/30/24 03:22 Temperature 36.8 C 36.9 C Pulse Rate 94 118 H 83 Respiratory Rate 17 17 Blood Pressure 127/82 115/66 130/53 L Pulse Oximetry 98 98 Oxygen Delivery 10/30/24 03:27 10/30/24 03:27 10/30/24 03:30 Temperature Pulse Rate 97 97 97 Respiratory Rate Blood Pressure 130/53 L Pulse Oximetry Oxygen Delivery 10/30/24 04:00 10/30/24 04:00 10/30/24 05:11 Temperature Pulse Rate 80 124 H Respiratory Rate Blood Pressure Pulse Oximetry Oxygen Delivery Room Air 10/30/24 05:39 10/30/24 05:51 10/30/24 05:52 Temperature 36.8 C Pulse Rate 73 73 78 Respiratory Rate 17 Blood Pressure 125/81 125/81 Pulse Oximetry 100 Oxygen Delivery 10/30/24 07:42 Temperature 36.9 C Pulse Rate 105 H Respiratory Rate 20 Blood Pressure 117/63 Pulse Oximetry 97 Oxygen Delivery Intake/Output Intake/Output: Intake & Output 10/27/24 10/28/24 10/29/24 10/30/24 23:59 23:59 23:59 23:59 Intake Total 19.8 1472.8 39.3 Output Total 300 Balance 19.8 1172.8 39.3 Meds/Results Medications: Active Medications Generic Name Dose Route Start Last Admin Trade Name Zoe PRN Reason Stop Dose Admin Acetaminophen 650 mg 10/28/24 16:37 10/29/24 23:43 Acetaminophen 325 Mg Tablet PO 650 mg Q4H PRN Administration Mild Pain (1-3) or Fever Dextrose 12.5 gm 10/28/24 19:50 Dextrose 50% 25 Gm/50 Ml Syringe IV PUSH PRN PRN Hypoglycemia Protocol Furosemide 40 mg 10/29/24 09:00 10/29/24 09:27 Furosemide Inj 40 Mg/4 Ml Vial IV PUSH 40 mg DAILY DESI Administration Gabapentin 300 mg 10/28/24 23:10 10/30/24 05:11 Gabapentin 300 Mg Capsule PO 300 mg Q8HR DESI Administration Glucagon 1 mg 10/28/24 19:50 Glucagon For Inj 1 Mg Vial IM PRN PRN Hypoglycemia Protocol Glucose 15 gm 10/28/24 19:50 Glucose Oral Gel 15 Gm Of Glucse In 37.5 Gm Tube PO PRN PRN Hypoglycemia Protocol Dextrose 1,000 mls @ 100 mls/hr 10/28/24 19:50 Dextrose 5% 1,000 Ml IVPB PRN PRN Hypoglycemia Protocol Diltiazem HCl 100 mg in 100 mls @ 5 mls/hr 10/29/24 02:30 10/30/24 05:51 Cardizem 100 Mg/100 Ml IV CONT 5 mg/hr .Q20H DESI 5 mls/hr Infusion 5 MG/HR Insulin Aspart 4 - 8 units 10/29/24 08:00 10/29/24 16:13 Insulin Aspart (*Bkc) 100 Units/Ml SUB-Q Not Given TIDWM DESI Protocol Metoprolol Tartrate 25 mg 10/29/24 14:20 10/30/24 05:11 Metoprolol Tartrate 25 Mg Tablet PO 25 mg Q8HR DESI Administration Rivaroxaban 20 mg 10/29/24 17:00 10/29/24 18:20 Rivaroxaban 20 Mg Tablet PO 20 mg DAILY@1700 DESI Administration Radiology Results: ITS Impressions Chest X-Ray 10/28/24 20:34 IMPRESSION: 1. Interstitial and mild airspace opacities in dependent bilateral mid and lower lung zones and favor mild pulmonary edema over pneumonia. 2. Small bilateral pleural effusions. Labs Labs: Laboratory Results - last 24 hr 10/29/24 10/29/24 10/29/24 11:36 16:08 21:22 WBC RBC Hgb Hct MCV MCH MCHC RDW Plt Count MPV Immature Gran % (Auto) Neut % (Auto) Lymph % (Auto) [place] % (Auto) Eos % (Auto) Baso % (Auto) Lymph # (Auto) [place] # (Auto) Eos # (Auto) Baso # (Auto) Abs Immat Gran (auto) Absolute Neuts (auto) Absolute Nucleated RBC Nucleated RBC % PT INR APTT Sodium Potassium Chloride Carbon Dioxide Anion Gap BUN Creatinine Estim Creat Clear Calc Estimated GFR Glucose POC Capillary Glucose 262 H 193 H 166 H Calcium Magnesium Total Bilirubin AST ALT Alkaline Phosphatase Total Protein Albumin 10/30/24 03:42 WBC 7.1 RBC 3.29 L Hgb 9.5 L Hct 31.2 L MCV 94.8 MCH 28.9 MCHC 30.4 L RDW 14.6 H Plt Count 220 MPV 10.2 Immature Gran % (Auto) 0.4 Neut % (Auto) 46.4 Lymph % (Auto) 31.9 [place] % (Auto) 14.6 H Eos % (Auto) 5.7 H Baso % (Auto) 1.0 Lymph # (Auto) 2.25 [place] # (Auto) 1.0 H Eos # (Auto) 0.4 H Baso # (Auto) 0.1 Abs Immat Gran (auto) 0.03 Absolute Neuts (auto) 3.3 Absolute Nucleated RBC 0.000 Nucleated RBC % 0.0 PT 27.5 H INR 2.6 APTT 47.3 H Sodium 133 L Potassium 3.8 Chloride 102 Carbon Dioxide 25 Anion Gap 6 BUN 21 H Creatinine 1.25 H Estim Creat Clear Calc 43 Estimated GFR 42 L Glucose 144 H POC Capillary Glucose Calcium 8.8 Magnesium 1.9 Total Bilirubin 0.5 AST 27 ALT 15 Alkaline Phosphatase 112 Total Protein 6.7 Albumin 3.2 L
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
[2024-10-30] MEDS: FUROSEMIDE INJ 40 MG/4 ML VIAL IV PUSH (11:06)
[2024-10-30] MEDS: INSULIN ASPART (*BKC) 100 UNITS/ML SUB-Q (12:03)
[2024-10-30] MEDS: RIVAROXABAN 20 MG TABLET PO (16:52)
[2024-10-31] VITALS (30 sets, daily range): BP systolic 102–143; BP diastolic 65–95; PULSE 90–126; RESP 14–20; TEMP 36.6–37.1; O2SAT 93–100
[2024-10-31 04:27] LABS: Hematocrit 30.9 % (37.0-47.0); Hemoglobin 9.5 g/dL (12.0-15.0); Immature Granulocyte Percent A 0.7 % (0-0.5); Lymphocytes Absolute Auto 2.10 K/mm3 (0.9-3.2); Mean Corpuscular HGB Conc 30.7 g/dl (32-36); Mean Corpuscular Hemoglobin 29.5 pg (26-34); Mean Corpuscular Volume 96.0 fl (80-100); Nucleated Red Blood Cells Absolute Auto 0.000 K/mm3 (0.0-0.012); Nucleated Red Blood Cells Perc 0.0 % (0.0-0.2); Platelet Count Result 223 k/mm3 (150-375); Red Blood Count 3.22 M/mm3 (4.2-5.4); White Blood Count 5.9 K/mm3 (4.5-10.0)
[2024-10-31 04:41] LABS: Albumin Level 3.2 g/dL (3.5-5.1); Anion Gap 5 mmol/L (4-12); Blood Urea Nitrogen 24 mg/dL (7-17); Calcium 8.9 mg/dL (8.4-10.2); Carbon Dioxide 28 mmol/L (22-30); Chloride 100 mmol/L (98-107); Estimated CRCL calculation 41 ml/min; Estimated Glomerular Filt Rate 40; Glucose 168 mg/dL (65-110); Magnesium 2.0 mg/dL (1.6-2.3); Potassium 4.0 mmol/L (3.4-5.0); Sodium 133 mmol/L (137-145)
[2024-10-31 05:08] LABS: Thyroid Stimulating Hormone Reflex 2.860 uIU/mL (0.465-4.68)
[2024-10-31] MEDS: METOPROLOL TARTRATE 25 MG TABLET PO ×3 (05:49→20:51)
[2024-10-31] MEDS: GABAPENTIN 300 MG CAPSULE PO ×3 (05:49→20:51)
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
[2024-10-31] MEDS: INSULIN ASPART (*BKC) 100 UNITS/ML SUB-Q (12:21)
[2024-10-31] MEDS: RIVAROXABAN 15 MG TABLET PO (17:36)
[2024-10-31] MEDS: ATORVASTATIN 40 MG TABLET PO (20:51)
[2024-11-01] VITALS (22 sets, daily range): BP systolic 104–144; BP diastolic 60–92; PULSE 53–109; RESP 13–20; TEMP 36.5–36.8; O2SAT 94–100; BMI 45.9
--- NOTE | 2024-11-01 | ECHO_ITS ---
Patient Info Name: Jocelyn Norman Age: 74 years : 1950 Gender: Female Ht: 60 in Wt: 276 lbs BSA: 2.39 m2 HR: 105 bpm BP: 132 / 85 mmHg Heart Rhythm: Atrial Fibrillation Technical Quality: Good Exam Date: 11/01/2024 1:39 PM Patient Status: I Admit Date: 10/29/2024 Exam Type: CA echo transesophageal Complete two-dimensional, color flow and Doppler transesophageal study is performed. Staff Referring Physician: Evy Catalan Student Advisor: Venecia Finn Attending Provider: Keshawn Whitehead Summary 1. Transesophageal echocardiogram to assess for left atrial appendage thrombus prior to cardioversion. 2. There is no thrombus visualized in the left atrium. 3. Spontaneous echo contrast seen in left atrium and left atrial appendage but no thrombus. 4. There is no thrombus visualized in the left atrial appendage. Procedure Details Risks/benefits/alternative to ELLY discuss with patient and she gave informed consent. She is monitored electrocardiographically which shows atrial fibrillation at 109 bpm, BP 130/70 mmHg, pulse ox at 99%. Cetacaine spray x1 to posterior oropharynx. Patient sedated as per anesthesiology. ELLY probe advanced without incident into esophagus. Multiple images obtained. ELLY probe withdrawn and no blood noted on ELLY probe tip. Patient tolerated procedure well with no complications. Pa. Left Atria There is no thrombus visualized in the left atrium. Spontaneous echo contrast seen in left atrium and left atrial appendage but no thrombus. Transesophageal echocardiogram to assess for left atrial appendage thrombus prior to cardioversion. Atrial Appendage There is no thrombus visualized in the left atrial appendage. Report Signatures
[2024-11-01 04:28] LABS: Hematocrit 33.8 % (37.0-47.0); Hemoglobin 10.2 g/dL (12.0-15.0); Immature Granulocyte Percent A 0.4 % (0-0.5); Lymphocytes Absolute Auto 2.36 K/mm3 (0.9-3.2); Mean Corpuscular HGB Conc 30.2 g/dl (32-36); Mean Corpuscular Hemoglobin 29.0 pg (26-34); Mean Corpuscular Volume 96.0 fl (80-100); Nucleated Red Blood Cells Absolute Auto 0.000 K/mm3 (0.0-0.012); Nucleated Red Blood Cells Perc 0.0 % (0.0-0.2); Platelet Count Result 256 k/mm3 (150-375); Red Blood Count 3.52 M/mm3 (4.2-5.4); White Blood Count 7.4 K/mm3 (4.5-10.0)
[2024-11-01 04:47] LABS: Alanine Aminotransferase 15 U/L (6-35); Albumin Level 3.5 g/dL (3.5-5.1); Alkaline Phosphatase 121 U/L (38-126); Anion Gap 5 mmol/L (4-12); Aspartate Amino Transferase 25 U/L (14-36); Bilirubin,Total 0.5 mg/dL (0.2-1.3); Blood Urea Nitrogen 27 mg/dL (7-17); Calcium 9.3 mg/dL (8.4-10.2); Carbon Dioxide 27 mmol/L (22-30); Chloride 100 mmol/L (98-107); Estimated CRCL calculation 38 ml/min; Estimated Glomerular Filt Rate 36; Glucose 194 mg/dL (65-110); Magnesium 2.1 mg/dL (1.6-2.3); Potassium 4.5 mmol/L (3.4-5.0); Sodium 132 mmol/L (137-145); Total Protein 7.3 g/dL (6.3-8.2)
[2024-11-01] MEDS: EMPAGLIFLOZIN 10 MG TABLET PO (08:40)
[2024-11-01] MEDS: METOPROLOL TARTRATE 25 MG TABLET PO (08:40)
[2024-11-01] MEDS: GABAPENTIN 300 MG CAPSULE PO ×3 (08:40→21:58)
--- NOTE | 2024-11-01 13:04 | P.PNIM_ITS ---
Progress Note: A&P Assessment and Plan (1) Atrial fibrillation with rapid ventricular response: Code(s): I48.91 - Unspecified atrial fibrillation Status: Acute Assessment and Plan: Initial EKG showing AFib RVR, rate 135, minimal ST depression. She has a hx of Afib on metoprolol and Xarelto. Recent admission for AFib RVR with ELLY guided cardioversion on 09/18. Heart rate 40-50 post cardioversion, resumed on metoprolol 25 mg daily with no dose adjustments at that time given heart rate IV Diltiazem started. She was continued on Xarelto. TSH normal. Cardiology consulted. Metoprolol added back. HR still elevated with exertion so Diltiazem changed to Amiodarone drip. Mag 2 and potassium 4. Plan for ELLY and possible cardioversion later today. Monitor on tele. Continue Amiodarone, metoprolol and Xarelto (2) Elevated brain natriuretic peptide (BNP) level: Code(s): R79.89 - Other specified abnormal findings of blood chemistry Status: Acute Assessment and Plan: BNP 8060 Most recent echo (09/17/24): Normal LV systolic function, estimated EF 55-60%, grade 3 diastolic dysfunction, mild valvular disease. Was on Lasix 20 mg daily but increased to Lasix 40 mg IV due to evidence of some extra volume on CXR. BNP likely elevated secondary to tachycardia and missed diuretic doses. Suspect acute on chronic diastolic CHF due to AFib/RVR I/O's -4.5L Lasix held as Cr climbed. Monitor I&Os and daily weights; Trend renal function (3) DM2 (diabetes mellitus, type 2): Qualifiers: Diabetes mellitus [facility] insulin use: without continuous churn buttermaker use Diabetes mellitus complication status: without complication Qualified Code(s): E11.9 - Type 2 diabetes mellitus without complications Code(s): E11.9 - Type 2 diabetes mellitus without complications Status: Chronic Assessment and Plan: A1C 8.1% on 09/17/2024. The patient's blood glucose was reviewed on 11/01 Consult to signing teacher placed as she needs re-education on her home DM medications. Glucose better at 194 this morning. Continue AccuCheks covering with sliding scale. Hypoglycemia protocol available as needed. At home, she is on Lantus 32U daily, Empagliflozin and glipizide at home. Empagliflozin added back. Lantus on hold since she is NPO. (4) Chronic kidney disease, stage 3b: Code(s): N18.32 - Chronic kidney disease, stage 3b Status: Chronic Assessment and Plan: Cr 1.08 and GFR 49 upon admission on 10/28 Baseline creatinine appears to be 1.3-1.4 Follows with Stephanie GOODMAN Cr up to 1.43 today. Holding IV Lasix. Trend renal function, electrolytes, and UOP (5) Anemia: Qualifiers: Anemia type: due to chronic kidney disease Chronic kidney disease stage: stage 3 (moderate) Chronic kidney disease stage 3 subtype: stage 3b (GFR 30-44) Qualified Code(s): N18.32 - Chronic kidney disease, stage 3b; D63.1 - Anemia in chronic kidney disease Code(s): D64.9 - Anemia, unspecified Status: Chronic Assessment and Plan: Hgb low but stable in the 9-10 range Likely anemia due to chronic illness/CKD Transfuse if <7 Trend H&H (6) HTN (hypertension): Qualifiers: Hypertension type: unspecified Qualified Code(s): I10 - Essential (primary) hypertension Code(s): I10 - Essential (primary) hypertension Status: Chronic Assessment and Plan: Patient's blood pressure was reviewed on 11/01 Blood pressure remains well controlled. Will continue to monitor Plan DVT prophylaxis - Xarelto Code status - full Subjective Date/time seen: 11/01/24 13:04 Interval history: 74-year-old female with pAFib s/p recent CV in September, hypertension, CKD and diabetes here for shortness of breath. Slept well. Walking in the room. No SOB. Still has musculoskeletal chest pain related to recent rib fractures Exam Narrative: AF 97.7 132/85 105 20 97% ra Gen - NARD sitting up in chair HEENT -retained sutures noted left lateral nose and above the right eye (dissolvable sutures per patient) Chest - CTA bilaterally, nml RR CV -irregular irregular. Telemetry showing AFib with RVR at times Abd - Soft, NT/ND, Positive BS Ext -nonpitting, lymphedema. Psych - Nml mood and affect Skin - Warm and dry Objective Data Vital Signs Vital Signs: Vital Signs - 24 hr 10/31/24 13:53 10/31/24 14:00 10/31/24 14:00 Temperature 98.6 F Pulse Rate 111 H 122 H 108 H Respiratory Rate 18 Blood Pressure 116/73 Pulse Oximetry 100 Oxygen Delivery 10/31/24 14:18 10/31/24 15:54 10/31/24 16:00 Temperature 98.3 F Pulse Rate 114 H 100 Respiratory Rate 14 Blood Pressure 126/81 Pulse Oximetry 100 Oxygen Delivery Room Air 10/31/24 16:00 10/31/24 17:16 10/31/24 17:36 Temperature Pulse Rate 108 H 111 H 111 H Respiratory Rate Blood Pressure Pulse Oximetry Oxygen Delivery 10/31/24 17:39 10/31/24 18:00 10/31/24 18:00 Temperature 98.7 F Pulse Rate 120 H 97 100 Respiratory Rate 18 Blood Pressure 143/94 H Pulse Oximetry 100 Oxygen Delivery 10/31/24 19:49 10/31/24 19:50 10/31/24 20:00 Temperature 98.2 F Pulse Rate 103 H 103 H 111 H Respiratory Rate 18 20 Blood Pressure 117/93 H Pulse Oximetry 100 100 Oxygen Delivery Room Air 10/31/24 20:00 10/31/24 20:51 10/31/24 22:00 Temperature Pulse Rate 110 H 95 126 H Respiratory Rate Blood Pressure 137/95 H Pulse Oximetry Oxygen Delivery 10/31/24 22:00 10/31/24 23:46 10/31/24 23:47 Temperature Pulse Rate 125 H 105 H 105 H Respiratory Rate 20 Blood Pressure Pulse Oximetry 100 Oxygen Delivery Room Air 10/31/24 23:53 11/01/24 01:57 11/01/24 03:52 Temperature 98.2 F Pulse Rate 90 64 100 Respiratory Rate 18 Blood Pressure 110/72 104/80 Pulse Oximetry 100 Oxygen Delivery 11/01/24 03:54 11/01/24 04:00 11/01/24 05:00 Temperature 98.3 F Pulse Rate 100 103 H 82 Respiratory Rate 18 18 Blood Pressure 111/60 Pulse Oximetry 100 94 Oxygen Delivery Room Air 11/01/24 05:00 11/01/24 06:00 11/01/24 07:30 Temperature 98.2 F Pulse Rate 82 102 H 107 H Respiratory Rate 18 Blood Pressure 121/73 117/72 Pulse Oximetry 96 Oxygen Delivery 11/01/24 08:00 11/01/24 08:00 11/01/24 08:40 Temperature Pulse Rate 102 H 109 H Respiratory Rate Blood Pressure Pulse Oximetry Oxygen Delivery Room Air 11/01/24 09:51 11/01/24 10:00 11/01/24 11:35 Temperature 97.7 F 97.7 F Pulse Rate 81 89 106 H Respiratory Rate 18 20 Blood Pressure 144/92 H 132/85 Pulse Oximetry 98 97 Oxygen Delivery 11/01/24 12:00 11/01/24 12:00 Temperature Pulse Rate 105 H Respiratory Rate Blood Pressure Pulse Oximetry Oxygen Delivery Room Air Intake/Output Intake/Output: Intake & Output 10/29/24 10/30/24 10/31/24 11/01/24 23:59 23:59 23:59 23:59 Intake Total 1472.8 1105.2 1484.4 466.7 Output Total 300 2200 4000 2600 Balance 1172.8 -1094.8 -2515.6 -2133.3 Meds/Results Medications: Active Medications Generic Name Dose Route Start Last Admin Trade Name Freq PRN Reason Stop Dose Admin Acetaminophen 650 mg 10/28/24 16:37 10/29/24 23:43 Acetaminophen 325 Mg Tablet PO 650 mg Q4H PRN Administration Mild Pain (1-3) or Fever Atorvastatin Calcium 40 mg 10/31/24 21:00 10/31/24 20:51 Atorvastatin 40 Mg Tablet PO 40 mg HS DESI Administration Dextrose 12.5 gm 10/28/24 19:50 Dextrose 50% 25 Gm/50 Ml Syringe IV PUSH PRN PRN Hypoglycemia Protocol Empagliflozin 10 mg 11/01/24 09:00 11/01/24 08:40 Empagliflozin 10 Mg Tablet PO 10 mg DAILY DESI Administration Furosemide 40 mg 10/29/24 09:00 10/30/24 11:06 Furosemide Inj 40 Mg/4 Ml Vial IV PUSH 40 mg DAILY DESI Administration Gabapentin 300 mg 10/28/24 23:10 11/01/24 08:40 Gabapentin 300 Mg Capsule PO 300 mg Q8HR DESI Administration Glucagon 1 mg 10/28/24 19:50 Glucagon For Inj 1 Mg Vial IM PRN PRN Hypoglycemia Protocol Glucose 15 gm 10/28/24 19:50 Glucose Oral Gel 15 Gm Of Glucse In 37.5 Gm Tube PO PRN PRN Hypoglycemia Protocol Dextrose 1,000 mls @ 100 mls/hr 10/28/24 19:50 Dextrose 5% 1,000 Ml IVPB PRN PRN Hypoglycemia Protocol Amiodarone HCl/Dextrose 360 mg in 200 mls @ 16.667 mls/hr 10/30/24 15:15 11/01/24 05:00 Nexterone 360 Mg/D5w 200 Ml IV CONT 0.5 mg/min .Q12H DESI 16.67 mls/hr Administration 0.5 MG/MIN Insulin Aspart 4 - 8 units 10/29/24 08:00 11/01/24 12:37 Insulin Aspart (*Bkc) 100 Units/Ml SUB-Q Not Given TIDWM [facility] Protocol Metoprolol Tartrate 25 mg 10/29/24 14:20 11/01/24 08:40 Metoprolol Tartrate 25 Mg Tablet PO 25 mg Q8HR [facility] Administration Rivaroxaban 15 mg 10/31/24 17:00 10/31/24 17:36 Rivaroxaban 15 Mg Tablet PO 15 mg DAILY@1700 [facility] Administration Radiology Results: ITS Impressions Chest X-Ray 10/28/24 20:34 IMPRESSION: 1. Interstitial and mild airspace opacities in dependent bilateral mid and lower lung zones and favor mild pulmonary edema over pneumonia. 2. Small bilateral pleural effusions. Labs Labs: Laboratory Results - last 24 hr 10/31/24 10/31/24 11/01/24 16:15 20:02 03:47 WBC 7.4 RBC 3.52 L Hgb 10.2 L Hct 33.8 L MCV 96.0 MCH 29.0 MCHC 30.2 L RDW 14.6 H Plt Count 256 MPV 10.6 H Immature Gran % (Auto) 0.4 Neut % (Auto) 50.3 Lymph % (Auto) 32.1 [place] % (Auto) 11.6 H Eos % (Auto) 4.6 H Baso % (Auto) 1.0 Lymph # (Auto) 2.36 [place] # (Auto) 0.9 H Eos # (Auto) 0.3 Baso # (Auto) 0.1 Abs Immat Gran (auto) 0.03 Absolute Neuts (auto) 3.7 Absolute Nucleated RBC 0.000 Nucleated RBC % 0.0 Sodium 132 L Potassium 4.5 Chloride 100 Carbon Dioxide 27 Anion Gap 5 BUN 27 H Creatinine 1.43 H Estim Creat Clear Calc 38 Estimated GFR 36 L Glucose 194 H POC Capillary Glucose 182 H 258 H Calcium 9.3 Magnesium 2.1 Total Bilirubin 0.5 AST 25 ALT 15 Alkaline Phosphatase 121 Total Protein 7.3 Albumin 3.5 11/01/24 07:27 WBC RBC Hgb Hct MCV MCH MCHC RDW Plt Count MPV Immature Gran % (Auto) Neut % (Auto) Lymph % (Auto) [place] % (Auto) Eos % (Auto) Baso % (Auto) Lymph # (Auto) [place] # (Auto) Eos # (Auto) Baso # (Auto) Abs Immat Gran (auto) Absolute Neuts (auto) Absolute Nucleated RBC Nucleated RBC % Sodium Potassium Chloride Carbon Dioxide Anion Gap BUN Creatinine Estim Creat Clear Calc Estimated GFR Glucose POC Capillary Glucose 214 H Calcium Magnesium Total Bilirubin AST ALT Alkaline Phosphatase Total Protein Albumin
--- NOTE | 2024-11-01 13:40 | ECG_ITS ---
Test Date: 2024-11-01 13:44:05 Measurements Intervals [place] Rate: 109 P: 0 DC: 0 QRS: 4 QRSD: 89 T: 27 QT: 362 QTc: 488 Interpretive Statements ATRIAL FIBRILLATION WITH RAPID VENTRICULAR RESPONSE CONSIDER INFERIOR INFARCT, AGE INDETERMINATE BASELINE ARTIFACT- I, III, AVR, AVL ABNORMAL ECG Compared to ECG 10/28/2024 12:20:49 HEART RATE HAS DECREASED Electronically Signed On 11-01-2024 13:46:57 CDT by Rigo Johnson D.O.
--- NOTE | 2024-11-01 13:46 | WPDANESEPPF ---
Anes - Initial Pre Proc Eval Procedure: Operation Date: 11/01/24 13:30 Proposed Procedures p Electrical Cardioversion - Rigo Johnson DO s Trans Esophageal Echo - Rigo Johnson DO Date/Time: 11/01/24 13:46 Surgeon: Keshawn Whitehead MD Pre Op Diagnosis: afib with rvr Patient Data Age: 74 Gender: F Height: 1.54 m Weight: 125.2 kg Last Vital Signs Temp 97.7 F 11/01/24 11:35 Pulse 105 H 11/01/24 12:00 Resp 20 11/01/24 11:35 BP 132/85 11/01/24 11:35 Pulse Ox 97 11/01/24 11:35 O2 Del Method Room Air 11/01/24 12:00 Allergies Allergy/AdvReac Type Severity Reaction Status Date / Time house dust Allergy Mild Congested Verified 10/28/24 18:00 pollen extracts Allergy Congested Verified 10/28/24 18:00 Home Medications ?Medication ?Instructions ?Recorded ?Confirmed ?Type sertraline 100 mg tablet 50 mg PO DAILY 09/30/20 10/28/24 History glipizide 10 mg tablet 20 mg PO HS 03/20/23 10/28/24 History loratadine 10 mg tablet 10 mg PO DAILY PRN Allergy Symptoms 03/20/23 10/28/24 History atorvastatin 40 mg tablet 40 mg PO HS 08/15/23 10/28/24 History furosemide 20 mg tablet 20 mg PO DAILY 08/15/23 10/28/24 History rivaroxaban 20 mg tablet (Xarelto) 20 mg PO Q24H 08/15/23 10/28/24 History empagliflozin 10 mg tablet 10 mg PO DAILY 09/18/23 10/28/24 History (Jardiance) biotin 5 mg tablet 5 mg PO DAILY 09/16/24 10/28/24 History cholecalciferol (vitamin D3) 25 25 mcg PO DAILY 09/16/24 10/28/24 History mcg (1,000 unit) capsule (Vitamin D3) ferrous sulfate 325 mg (65 mg 325 mg PO DAILY 09/16/24 10/28/24 History iron) tablet (Iron (ferrous sulfate)) mecobalamin (vitamin B12) 2,500 2,500 mcg PO DAILY 09/16/24 10/28/24 History mcg chewable tablet metoprolol succinate 25 mg 25 mg PO DAILY 09/16/24 10/28/24 History tablet,extended release 24 hr diltiazem HCl 360 mg 360 mg PO Q24H 10/28/24 10/28/24 History capsule,extended release 24 hr gabapentin 300 mg capsule 300 mg PO Q8H 10/28/24 10/28/24 History insulin glargine 100 unit/mL (3 32 unit subcut QPM 10/28/24 10/28/24 History mL) subcutaneous pen (Lantus Solostar U-100 Insulin) lisinopril 5 mg tablet 5 mg PO DAILY 10/28/24 10/28/24 History Laboratory Tests 10/31/24 10/31/24 11/01/24 16:15 20:02 03:47 WBC 7.4 K/mm3 (4.5-10.0) RBC 3.52 L M/mm3 (4.2-5.4) Hgb 10.2 L g/dL (12.0-15.0) Hct 33.8 L % (37.0-47.0) MCV 96.0 fl (80-100) MCH 29.0 pg (26-34) MCHC 30.2 L g/dl (32-36) RDW 14.6 H % (11.5-14.5) Plt Count 256 k/mm3 (150-375) MPV 10.6 H fl (7.4-10.4) Immature Gran % (Auto) 0.4 % (0-0.5) Neut % (Auto) 50.3 % (45.5-73.1) Lymph % (Auto) 32.1 % (18.3-44.2) [place] % (Auto) 11.6 H % (2.6-8.5) Eos % (Auto) 4.6 H % (0-4.4) Baso % (Auto) 1.0 % (0.2-1.2) Lymph # (Auto) 2.36 K/mm3 (0.9-3.2) [place] # (Auto) 0.9 H K/mm3 (0.1-0.6) Eos # (Auto) 0.3 K/mm3 (0-0.3) Baso # (Auto) 0.1 K/mm3 (0.0-0.1) Abs Immat Gran (auto) 0.03 K/mm3 (0.00-0.031) Absolute Neuts (auto) 3.7 K/mm3 (1.3-6.7) Absolute Nucleated RBC 0.000 K/mm3 (0.0-0.012) Nucleated RBC % 0.0 % (0.0-0.2) Sodium 132 L mmol/L (137-145) Potassium 4.5 mmol/L (3.4-5.0) Chloride 100 mmol/L (98-107) Carbon Dioxide 27 mmol/L (22-30) Anion Gap 5 mmol/L (4-12) BUN 27 H mg/dL (7-17) Creatinine 1.43 H mg/dL (0.7-1.0) Estim Creat Clear Calc 38 ml/min Estimated GFR 36 L (59 - ) Glucose 194 H mg/dL (65-110) POC Capillary Glucose 182 H mg/dl 258 H mg/dl (65-105) (65-105) Calcium 9.3 mg/dL (8.4-10.2) Magnesium 2.1 mg/dL (1.6-2.3) Total Bilirubin 0.5 mg/dL (0.2-1.3) AST 25 U/L (14-36) ALT 15 U/L (6-35) Alkaline Phosphatase 121 U/L (38-126) Total Protein 7.3 g/dL (6.3-8.2) Albumin 3.5 g/dL (3.5-5.1) 11/01/24 07:27 WBC RBC Hgb Hct MCV MCH MCHC RDW Plt Count MPV Immature Gran % (Auto) Neut % (Auto) Lymph % (Auto) [place] % (Auto) Eos % (Auto) Baso % (Auto) Lymph # (Auto) [place] # (Auto) Eos # (Auto) Baso # (Auto) Abs Immat Gran (auto) Absolute Neuts (auto) Absolute Nucleated RBC Nucleated RBC % Sodium Potassium Chloride Carbon Dioxide Anion Gap BUN Creatinine Estim Creat Clear Calc Estimated GFR Glucose POC Capillary Glucose 214 H mg/dl (65-105) Calcium Magnesium Total Bilirubin AST ALT Alkaline Phosphatase Total Protein Albumin Patient hx anesthesia problems: none Family hx anesthesia problems: none Results Review: All pre-operative results and documents have been reviewed as part of the pre-operative evaluation. [facility] Past Medical History Medical History Atrial fibrillation Dx Mar 2023; on anticoagulation Obesity Hypertension Chronic kidney disease Diabetes mellitus DM2 (diabetes mellitus, type 2) HTN (hypertension) Family History Family History Mother Sepsis H/O lymph node excision Uterine cancer Sibling Pancreatic cancer Grandparent Skin cancer Social History Social History Smoking packs per day: 0.25 Smoking cigarettes per day: 5.0 Years smoked: 4 Smoking pack-years: 1.00 Smoking status: Former smoker Tobacco type: cigarettes Second hand tobacco smoke exposure: No Smoking end date: 04/03/74 Alcohol intake: former Drinks per week: 2 Alcohol use details: last drink was July 15 - . drinks q3 weeks Substance use: current Substance use type: marijuana Other substance usage details: occasional hit of marijuana Last use: 03/19/23 Do You Feel Safe in your Home?: Yes Lack of Transportation: No Lack of Food: Never True Current Housing: I Have Housing Concerned About Future Housing: No Difficulty Paying Gas/Electric Bills: No Difficulty Paying for Meds: No Currently Unemployed: No Education: Bachelor's Degree Difficulty w/ Childcare or Family Care: No Living arrangements: alone Gender identity (if verbalized by the patient): Female Spiritual care concerns: No Anes - Eval Final PreProcedure Day of Procedure 11/01/24 13:46 Patient weight: super morbidly obese Heart: regular rate and rhythm Lungs: clear to auscultation Airway: Mallampati scale class III Neurological: alert and oriented Last oral intake: >/= 8 hours ASA classification: IV Emergent: no Anesthetic plan: proceed Anesthesia type and monitoring: general GIVS and standard monitoring Results Review: All pre-operative results and documents have been reviewed as part of the pre-operative evaluation. Informed Consent: The patient's anesthetic plan and its attendant risks and benefits were discussed with the patient/family/POA. Questions were solicited and answers provided to the satisfaction of the patient/family/POA.
--- NOTE | 2024-11-01 14:30 | ECG_ITS ---
Test Date: 2024-11-01 14:14:44 Measurements Intervals [place] Rate: 54 P: 27 MO: 197 QRS: 3 QRSD: 97 T: 28 QT: 453 QTc: 429 Interpretive Statements SINUS BRADYCARDIA NONSPECIFIC ST & T-WAVE ABNORMALITY- ANT/HIGH LAT LEADS BASELINE WANDER- I, II, AVR, AVL, AVF, V1-V2 BORDERLINE ECG Compared to ECG 11/01/2024 13:44:05 Atrial fibrillation no longer present Electronically Signed On 11-01-2024 14:26:00 CDT by Rigo Johnson D.O.
--- NOTE | 2024-11-01 14:43 | WPDCARDVER ---
Cardioversion Cardioversion Date of procedure: 11/01/24 Pre-op diagnosis: atrial fibrillation Post-op diagnosis: Same Indications: Symptomatic atrial fibrillation Description of procedure: Risks/benefits/alternative to DC cardioversion discuss with patient and she gave informed consent. Patient just had ELLY performed which showed no left atrial or left atrial appendage thrombus. Defibrillator pads placed on anterior and posterior chest wall. Patient sedated as per anesthesiology service. Cardioversion set at 200 J synchronized biphasic energy delivered and restored sinus rhythm. Patient tolerated procedure well, no complications. Sedation: As per anesthesiology service. Conclusion: 1. Successful DC cardioversion from atrial fibrillation to Sinus rhythm. 2. Obtain EKG post procedure. [facility] Billing for Cardioversion: Cardioversion
[2024-11-01] MEDS: RIVAROXABAN 15 MG TABLET PO (17:20)
[2024-11-01] MEDS: ATORVASTATIN 40 MG TABLET PO (20:09)
[2024-11-01] MEDS: INSULIN GLARGINE (*BKC) 100 UNITS/ML 18 UNITS SUB-Q (21:58)
[2024-11-02] VITALS (11 sets, daily range): BP systolic 119–139; BP diastolic 56–71; PULSE 61–93; RESP 16; TEMP 36.6–36.8; O2SAT 96–100
[2024-11-02 05:15] LABS: Anion Gap 5 mmol/L (4-12); Blood Urea Nitrogen 27 mg/dL (7-17); Calcium 9.3 mg/dL (8.4-10.2); Carbon Dioxide 28 mmol/L (22-30); Chloride 100 mmol/L (98-107); Estimated CRCL calculation 44 ml/min; Estimated Glomerular Filt Rate 39; Glucose 186 mg/dL (65-110); Magnesium 2.3 mg/dL (1.6-2.3); Potassium 4.4 mmol/L (3.4-5.0); Sodium 133 mmol/L (137-145)
[2024-11-02] MEDS: GABAPENTIN 300 MG CAPSULE PO ×2 (06:48→14:08)
[2024-11-02] MEDS: EMPAGLIFLOZIN 10 MG TABLET PO (09:23)
[2024-11-02] MEDS: AMIODARONE HCL 200 MG TABLET PO (09:23)
[2024-11-02] MEDS: INSULIN ASPART (*BKC) 100 UNITS/ML SUB-Q (11:32)
--- NOTE | 2024-11-02 13:12 | PM.PNCARD ---
Progress Note: A&P Assessment and Plan (1) Atrial fibrillation with rapid ventricular response: Code(s): I48.91 - Unspecified atrial fibrillation Status: Acute Plan Paroxysmal atrial fibrillation status post cardioversion Hypertension Hyperlipidemia CKD stage 3 Plan: Continue amiodarone Continue Xarelto Change Lasix to oral 40 mg daily Patient can be discharged from cardiac standpoint follow-up in the clinic Follow-up kidney function electrolytes with PCP Subjective Date/time seen: 11/02/24 13:12 Interval history: No acute events Telemetry sinus rhythm Review of Systems Review of Systems: All systems reviewed & are unremarkable except as noted in HPI and below Exam Narrative: General: Alert oriented x3, no acute distress Neck: Supple, JVD + Chest: Bilaterally clear to auscultation, no rales or rhonchi Cardiac: S1, S2 +, irregularly irregular rhythm, no murmurs or rubs Extremities: Bilateral lower extremity edema 2 to 3+, no skin rash Neurologic: Alert and oriented x3, no focal neurological deficits Objective Data Vital Signs Vital Signs: Vital Signs - 24 hr 11/01/24 14:20 11/01/24 14:35 11/01/24 14:50 Temperature Pulse Rate 53 L 53 L 59 L Respiratory Rate 13 16 19 Blood Pressure 124/64 133/70 104/85 Pulse Oximetry 94 100 100 Oxygen Delivery Room Air Room Air Room Air 11/01/24 16:00 11/01/24 16:00 11/01/24 16:00 Temperature 36.7 C Pulse Rate 60 56 L Respiratory Rate 16 Blood Pressure 118/83 Pulse Oximetry 100 Oxygen Delivery Room Air 11/01/24 18:00 11/01/24 19:50 11/01/24 20:00 Temperature 36.8 C Pulse Rate 62 66 66 Respiratory Rate 16 16 Blood Pressure 129/60 Pulse Oximetry 100 100 Oxygen Delivery Room Air 11/01/24 20:00 11/01/24 22:00 11/02/24 00:00 Temperature 36.8 C Pulse Rate 65 63 65 Respiratory Rate 16 Blood Pressure 130/65 Pulse Oximetry 99 Oxygen Delivery 11/02/24 00:00 11/02/24 00:12 11/02/24 02:00 Temperature Pulse Rate 62 65 62 Respiratory Rate 16 Blood Pressure Pulse Oximetry 99 Oxygen Delivery Room Air 11/02/24 04:00 11/02/24 04:00 11/02/24 04:00 Temperature 36.6 C Pulse Rate 66 66 64 Respiratory Rate 16 16 Blood Pressure 128/56 L Pulse Oximetry 100 100 Oxygen Delivery Room Air 11/02/24 06:00 11/02/24 07:52 11/02/24 08:00 Temperature 36.7 C Pulse Rate 65 61 64 Respiratory Rate 16 Blood Pressure 139/61 Pulse Oximetry 96 Oxygen Delivery 11/02/24 09:23 11/02/24 10:00 11/02/24 12:00 Temperature 36.6 C Pulse Rate 69 65 68 Respiratory Rate 16 Blood Pressure 119/71 Pulse Oximetry 98 Oxygen Delivery 11/02/24 12:00 Temperature Pulse Rate 72 Respiratory Rate Blood Pressure Pulse Oximetry Oxygen Delivery Intake/Output Intake/Output: Intake & Output 10/30/24 10/31/24 11/01/24 11/02/24 23:59 23:59 23:59 23:59 Intake Total 1105.2 1484.4 586.7 980 Output Total 2200 4000 4100 2350 Balance -1094.8 -2515.6 -3513.3 -1370 Meds/Results Medications: Active Medications Generic Name Dose Route Start Last Admin Trade Name Freq PRN Reason Stop Dose Admin Acetaminophen 650 mg 10/28/24 16:37 10/29/24 23:43 Acetaminophen 325 Mg Tablet PO 650 mg Q4H PRN Administration Mild Pain (1-3) or Fever Amiodarone HCl 200 mg 11/02/24 08:00 11/02/24 09:23 Amiodarone Hcl 200 Mg Tablet PO 200 mg DAILY@0800 DESI Administration Atorvastatin Calcium 40 mg 10/31/24 21:00 11/01/24 20:09 Atorvastatin 40 Mg Tablet PO 40 mg HS DESI Administration Dextrose 12.5 gm 10/28/24 19:50 Dextrose 50% 25 Gm/50 Ml Syringe IV PUSH PRN PRN Hypoglycemia Protocol Empagliflozin 10 mg 11/01/24 09:00 11/02/24 09:23 Empagliflozin 10 Mg Tablet PO 10 mg DAILY DESI Administration Furosemide 40 mg 10/29/24 09:00 10/30/24 11:06 Furosemide Inj 40 Mg/4 Ml Vial IV PUSH 40 mg DAILY DESI Administration Gabapentin 300 mg 10/28/24 23:10 11/02/24 06:48 Gabapentin 300 Mg Capsule PO 300 mg Q8HR DESI Administration Glucagon 1 mg 10/28/24 19:50 Glucagon For Inj 1 Mg Vial IM PRN PRN Hypoglycemia Protocol Glucose 15 gm 10/28/24 19:50 Glucose Oral Gel 15 Gm Of Glucse In 37.5 Gm Tube PO PRN PRN Hypoglycemia Protocol Dextrose 1,000 mls @ 100 mls/hr 10/28/24 19:50 Dextrose 5% 1,000 Ml IVPB PRN PRN Hypoglycemia Protocol Insulin Aspart 4 - 8 units 10/29/24 08:00 11/02/24 11:32 Insulin Aspart (*Bkc) 100 Units/Ml SUB-Q 4 units TIDWM DESI Administration Protocol Insulin Glargine 18 units 11/01/24 21:00 11/01/24 21:58 Insulin Glargine (*Bkc) 100 Units/Ml SUB-Q 18 units HS DESI Administration Rivaroxaban 15 mg 10/31/24 17:00 11/01/24 17:20 Rivaroxaban 15 Mg Tablet PO 15 mg DAILY@1700 DESI Administration Radiology Results: ITS Impressions Chest X-Ray 10/28/24 20:34 IMPRESSION: 1. Interstitial and mild airspace opacities in dependent bilateral mid and lower lung zones and favor mild pulmonary edema over pneumonia. 2. Small bilateral pleural effusions. Labs Labs: Laboratory Results - last 24 hr 11/01/24 11/01/24 11/01/24 11:33 16:33 19:44 Sodium Potassium Chloride Carbon Dioxide Anion Gap BUN Creatinine Estim Creat Clear Calc Estimated GFR Glucose POC Capillary Glucose 201 H 150 H 244 H Calcium Magnesium 11/02/24 11/02/24 11/02/24 04:27 07:21 11:22 Sodium 133 L Potassium 4.4 Chloride 100 Carbon Dioxide 28 Anion Gap 5 BUN 27 H Creatinine 1.33 H Estim Creat Clear Calc 44 Estimated GFR 39 L Glucose 186 H POC Capillary Glucose 186 H 219 H Calcium 9.3 Magnesium 2.3
--- NOTE | 2024-11-02 14:34 | PM.DS ---
DS: Admitting Diagnosis Discharge Date 11/02/24 Admitting Diagnosis Shortness of breath DS: Discharge Diagnosis Discharge Diagnosis (1) Atrial fibrillation with rapid ventricular response: Code(s): I48.91 - Unspecified atrial fibrillation Status: Acute (2) Elevated brain natriuretic peptide (BNP) level: Code(s): R79.89 - Other specified abnormal findings of blood chemistry Status: Acute (3) DM2 (diabetes mellitus, type 2): Qualifiers: Diabetes mellitus nursing home insulin use: without intermediate accountant use Diabetes mellitus complication status: without complication Qualified Code(s): E11.9 - Type 2 diabetes mellitus without complications Code(s): E11.9 - Type 2 diabetes mellitus without complications Status: Chronic (4) Chronic kidney disease, stage 3b: Code(s): N18.32 - Chronic kidney disease, stage 3b Status: Chronic (5) Anemia: Qualifiers: Anemia type: due to chronic kidney disease Chronic kidney disease stage: stage 3 (moderate) Chronic kidney disease stage 3 subtype: stage 3b (GFR 30-44) Qualified Code(s): N18.32 - Chronic kidney disease, stage 3b; D63.1 - Anemia in chronic kidney disease Code(s): D64.9 - Anemia, unspecified Status: Chronic (6) HTN (hypertension): Qualifiers: Hypertension type: unspecified Qualified Code(s): I10 - Essential (primary) hypertension Code(s): I10 - Essential (primary) hypertension Status: Chronic DS: Summary Hospital Course Reason for hospitalization: 74-year-old female with pAFib s/p recent CV in September, hypertension, CKD and diabetes here for shortness of breath. Please see H&P for details. Hospital Course: Initial EKG showing AFib RVR, rate 135, minimal ST depression. She has a hx of Afib on metoprolol and Xarelto. Recent admission for AFib RVR with ELLY guided cardioversion on 09/18. Heart rate 40-50 post cardioversion, resumed on metoprolol 25 mg daily with no dose adjustments at that time given heart rate. IV Diltiazem drip started. She was continued on Xarelto. TSH normal. Cardiology consulted. Metoprolol added back. HR still elevated with exertion so Diltiazem changed to Amiodarone drip. BNP 8060. Most recent echo (09/17/24): Normal LV systolic function, estimated EF 55-60%, grade 3 diastolic dysfunction, mild valvular disease. Was on Lasix 20 mg daily but increased to Lasix 40 mg IV due to evidence of some extra volume on CXR. BNP likely elevated secondary to tachycardia and missed diuretic doses. Suspect acute on chronic diastolic CHF due to AFib/RVR. Negative fluid balance of 7L. Lasix held due to worsening Cr level that did improve. A1C 8.1% on 09/17/2024. The patient's blood glucose was monitored with AccuCheks covering with sliding scale. Hypoglycemia protocol available as needed. Consulted staff educator. She is on Lantus 32U daily, Empagliflozin and glipizide at home. Empagliflozin added back. Lantus resumed at lower dose. Heart rate improved with Amiodarone. Patient underwent successful ELLY cardioversion 11/01/24 and tolerated this well. Discharge instructions were discussed at length and all questions were answered. She overall did well and was able to be discharged home on 11/02/24 Status at Discharge Cognitive/behavioral status at discharge: stable Time Spent with Patient Time attestation: Total time spent providing and/or coordinating discharge services: 35 minutes Time spent: Greater than 30 minutes Exam Narrative: AF 97.8 119/71 93 16 98% ra Gen - NARD sitting up in chair HEENT -retained sutures noted left lateral nose and above the right eye (dissolvable sutures per patient) Chest - CTA bilaterally, nml RR CV - RRR S1/S2. Telemetry showing no significant dysrhythmias Abd - Soft, NT/ND, Positive BS Ext - nonpitting, lymphedema. Psych - Nml mood and affect Skin - Warm and dry DS: Data Data Completed and Pending Labs on day of discharge: Labs from last 24 hours 11/02/24 11/02/24 11/02/24 11:22 07:21 04:27 Sodium 133 L Potassium 4.4 Chloride 100 Carbon Dioxide 28 Anion Gap 5 BUN 27 H Creatinine 1.33 H Estim Creat Clear Calc 44 Estimated GFR 39 L Glucose 186 H POC Capillary Glucose 219 H 186 H Calcium 9.3 Magnesium 2.3 11/01/24 11/01/24 19:44 16:33 Sodium Potassium Chloride Carbon Dioxide Anion Gap BUN Creatinine Estim Creat Clear Calc Estimated GFR Glucose POC Capillary Glucose 244 H 150 H Calcium Magnesium Discharge Plan Discharge Attending physician on discharge: Reinier Floyd Consulting providers: Mitch Dunn; Margoth Queen Discharging Clinician: Reinier Floyd Anticipated Discharge Date/Time: 11/02/24 14:47 Patient Disposition: Home Activity: as tolerated Diet: diabetic Discharge Instructions: Please check glucose before meals and before bed. Record and bring into your doctor for review. Check blood pressure 1 to 2 times a day. Record and bring into your doctor for review. Call your doctor if your blood pressure is greater than 180/110. Take precautions to avoid falls. Rise slowly from a lying or sitting position. Pause before standing or walking. Check daily morning weights after voiding. Call your doctor if you gain more than 3 lb in 2 days or 5 lb in 1 week. Contact your doctor or call 911 and come to the Emergency Room if you have elevated heart rate, lightheadedness with standing or other worrisome symptoms. Avoid NSAIDs (ibuprofen, naproxen, Aleve). Tylenol is safe to take. Follow-up with your primary care provider in 1-2 weeks. Please call for appointment to discuss a continuous glucose monitor. Follow-up with Cardiology in 2-3 weeks. Please call for an appointment. Thank you for using [facility] for your health care needs. Patient Instructions: Antibiotic Form Patient Language: Slovak Stand Alone Forms: General Discharge Information Follow-up/Referrals: Ki,DEVI Britton [Primary Care Provider] - Call for Appointment Corazon Rolon APN-C [Advanced Practice Nurse] - Call for Appointment Discharge Medications: New (DME) blood-glucose meter [OneTouch Verio Flex meter] [facility] Qty: 1 0RF Rx Instructions: May substitute to in-stock meter and/or covered by insurance. Use As Directed (DME) OneTouch Verio test strips Strip Qty: 1 0RF Rx Instructions: May substitute to in-stock and/or covered by insurance strips. Use As Directed (DME) pen needle, diabetic 32 gauge x 5/32 Needle Qty: 1 0RF Rx Instructions: As Directed (DME) lancets [OneTouch Delica Plus Lancet] 30 gauge misc Qty: 1 0RF Rx Instructions: May substitute to in-stock and/or covered by insurance lancets. Use As Directed Xarelto 15 mg Tablet 15 mg PO DAILY@1700 Qty: 30 1RF atorvastatin 40 mg Tablet 40 mg PO HS Qty: 30 1RF amiodarone [Pacerone] 200 mg Tablet 200 mg PO DAILY@0800 Qty: 30 1RF furosemide 40 mg Tablet 40 mg PO DAILY Qty: 30 0RF Continued Jardiance 10 mg tablet 10 mg PO DAILY gabapentin 300 mg capsule 300 mg PO Q8H Rx Instructions: Patient has not picked up yet Changed insulin glargine [Lantus Solostar U-100 Insulin] 100 unit/mL (3 mL) insulin pen 22 unit SUBCUT HS Qty: 15 0RF Discontinued sertraline 100 mg tablet 50 mg PO DAILY atorvastatin 40 mg tablet 40 mg PO HS furosemide 20 mg tablet 20 mg PO DAILY Rx Instructions: 08/15/23: pt. states she has not been taking this med daily. Xarelto 20 mg tablet 20 mg PO Q24H glipizide 10 mg tablet 20 mg PO HS loratadine 10 mg Tablet 10 mg PO DAILY PRN (Reason: Allergy Symptoms) metoprolol succinate 25 mg tablet extended release 24 hr 25 mg PO DAILY biotin 5 mg tablet 5 mg PO DAILY mecobalamin (vitamin B12) 2,500 mcg tablet,chewable 2,500 mcg PO DAILY ferrous sulfate [Iron (ferrous sulfate)] 325 mg (65 mg iron) tablet 325 mg PO DAILY cholecalciferol (vitamin D3) [Vitamin D3] 25 mcg (1,000 unit) capsule 25 mcg PO DAILY lisinopril 5 mg tablet 5 mg PO DAILY diltiazem HCl 360 mg capsule,extended release 24hr 360 mg PO Q24H Patient Comments: Patient has not picked up yet Date of admission: 10/29/24 09:53 Primary Care Provider: JillianRosanne Admitting Provider: Keshawn Whitehead Attending physician on admission: Keshawn Whitehead Condition: Stable Hospitalist MIPS Heart Failure (Exclusion) Patient has history of Heart Transplant or Left Ventricular Assistive Device?: No IF YES, STOP HERE Heart Failure (Qualifier) Patient has current or prior documentation of LVEF less than or equal to 40%, or mod/servere depressed LVSF?: No IF NO, STOP HERE
[2024-11-02] MEDS: RIVAROXABAN 15 MG TABLET PO (17:23)
--- NOTE | 2024-11-11 16:05 | PCCDE ---
11/11/24: DM educator courtesy follow up call placed. Message left including call back number.
== END 2024-11-02 17:45 | disposition home or self-care (01) | DRG 308 ==
LOC: ANHED 16:36 → ANHIMU 17:49
PROVIDERS: Internal Medicine Cardiovascular Disease; Nurse Practitioner Adult Health; Student in an Organized Health Care Education/Training Program; Admitting Provider Internal Medicine; Emergency Provider Family Medicine; PCP Physician Assistant; Visit Provider Internal Medicine
PROC: 5A2204Z Restoration of Cardiac Rhythm, Single (ICD-10-PCS; principal; 2024-11-01 13:30)
PROC: 5A2204Z Restoration of Cardiac Rhythm, Single (ICD-10-PCS; CPT 93312; 2024-11-01 13:30)
DX: I48.0 Paroxysmal atrial fibrillation (principal); I50.33 Acute on chronic diastolic (congestive) heart failure; I13.0 Hypertensive heart and chronic kidney disease with heart failure and stage 1 through stage 4 chronic kidney disease, or unspecified chronic kidney disease; Z68.42 Body mass index [BMI] 45.0-49.9, adult; E11.22 Type 2 diabetes mellitus with diabetic chronic kidney disease; N18.32 Chronic kidney disease, stage 3b; D63.1 Anemia in chronic kidney disease; E78.5 Hyperlipidemia, unspecified; Z79.01 Long term (current) use of anticoagulants; Z87.891 Personal history of nicotine dependence; E66.01 Morbid (severe) obesity due to excess calories
CPT/HCPCS: 36415; 71046; 80048; 80053; 80069; 82948; 83735; 83880; 84443; 84484; 85025; 85610; 85730; 92960; 93005; 93312; 93320; 93325; 96361; 96374; 96375; 97162; 97165; 99285; A9270; G0378; J0282; J0616; J1163; J1815; J1938; J2003; J2704; J7030; J7040

== ENCOUNTER 2024-12-16 11:44 | Outpatient (CLI) | payer MEDICARE, SELFPAY ==
[2024-12-16 12:13] LABS: Hematocrit 36.9 % (37.0-47.0); Hemoglobin 11.5 g/dL (12.0-15.0); Immature Granulocyte Percent A 0.3 % (0-0.5); Lymphocytes Absolute Auto 2.42 K/mm3 (0.9-3.2); Mean Corpuscular HGB Conc 31.2 g/dl (32-36); Mean Corpuscular Hemoglobin 28.5 pg (26-34); Mean Corpuscular Volume 91.6 fl (80-100); Nucleated Red Blood Cells Absolute Auto 0.000 K/mm3 (0.0-0.012); Nucleated Red Blood Cells Perc 0.0 % (0.0-0.2); Platelet Count Result 262 k/mm3 (150-375); Red Blood Count 4.03 M/mm3 (4.2-5.4); White Blood Count 6.7 K/mm3 (4.5-10.0)
[2024-12-16 12:58] LABS: Iron 62 ug/dL (37-170)
[2024-12-16 13:07] LABS: Percent Iron Saturation 17 % (20-50)
[2024-12-16 13:38] LABS: Vitamin B12 626.0 pg/mL (239-931)
[2024-12-16 13:39] LABS: Ferritin 32.20 ng/mL (11.1-264)
--- OUTSIDE RECORDS SUMMARY | 2024-12-16 13:57 | XMS_ITS | Clinical Summary ---
Author Organization [facility] Address [address] [place] [address] Phone Care Team Providers Care Advertising Traffic Manager Name Role Phone Kirsten Pendleton MD Primary Care Provider [phone] Allergies No known active allergies Medications glipiZIDE [...] on file Legal Sex Female 9:55 AM [facility] Gender Identity Not on file [...] 3 - PCV) 12/10/2015 12/09/2014 COVID-19 Vaccine (4 - season) 2024 01/12/2021, 07/03/2020, 06/21/2020 Influenza Vaccine (#1) [address] [facility] Care Teams Advertising Traffic Manager Relationship Specialty Start Date End Date Kirsten Pendleton MD [address] [place] [address] PCP - General Family Medicine 04/01/19
--- OUTSIDE RECORDS SUMMARY | 2024-12-16 13:57 | XMS_ITS | Clinical Summary ---
Author Organization [facility] Address [address] [place] [address] Phone Care Team Providers Care Shipping Receiving Clerk Name Role Phone Unavailable Primary Care Provider [...] Comments Blood Pressure 97/51 05/27/2024 2:14 PM STORM WINDOW INSTALLER Pulse 53 05/27/2024 2:14 PM STORM WINDOW INSTALLER Temperature 36.2 C (97.1 F) 05/27/2024 2:14 PM STORM WINDOW INSTALLER Respiratory Rate 15 05/27/2024 2:14 PM STORM WINDOW INSTALLER Oxygen Saturation 97% 05/27/2024 2:14 PM STORM WINDOW INSTALLER Inhaled Oxygen Concentration - - Weight 120.2 kg (265 lb) 05/27/2024 2:14 PM STORM WINDOW INSTALLER Height 165.1 cm (5' 5) 11/17/2023 10:49 AM CDT Body Mass Index 44.1 11/17/2023 10:49 AM CDT Plan of Treatment Upcoming Encounters Date Type Department Care Team (Late st Contact Info) Description 12/19/2024 2:00 PM CDT Office Visit [facility] Oncology and Hematology - [place] [address] [facility] [address] [place] [address] Gurjit Ayala MD [address] [facility] [address] [place] [address] Health Maintenance Due Date Last Done Comments DIABETES ANNUAL FOOT EXAM 07/16/1967 DIABETES ANNUAL RETINAL EXAM 07/16/1967 DIABETES MICROALBUMIN ANNUAL SCREEN 07/16/1967 LDL CHOLESTEROL ANNUAL 07/16/1967 Traditional Medicare (ACO) A nnual Wellness Visit 1968 FIT-DNA Q 3 years 1994 FIT/FOBT Q 1 year 1994 Flex Sig/CT Colonography Q 5 years 1994 ZOSTER VACCINE (1 of 2) 07/16/1999 OSTEOPOROSIS SCREENING 2014 RSV VACCINE (60+ or ) (1 - 1-dose 75+ series) 2024 INFLUENZA VACCINE (#1) 2024 COVID-19 Vaccine (5 - 2024-2 6 season) 2024 01/12/2021, 07/03/2020, 06/21/2020, Additional history exists DIABETES HBA1C Q 6 MONTHS 03/29/20252024, 09/26/2024, 09/02/2024, Additional history exists COLORECTAL SCREENING 11/19/2029 11/20/2019 Colorectal Cancer Screening 11/19/2029 DTAP/TDAP/TD VACCINES (3 - T d or Tdap) 09/26/2034 09/26/2024, 02/07/2012 PNEUMOCOCCAL VACCINE 50+ YEARS Completed 0 05/10/2023, 12/09/2014, 12/09/2014 Procedures Procedure Name Priority Date/Time Associated Diagnosis Comments HEMOGLOBIN A1C Routine 03/13/2017 7:28 AM STORM WINDOW INSTALLER Encounter for general adult medical examination without abnormal findings from Last 3 Months or Most Recently Relevant to Health Maintenance Results * (ABNORMAL) HEMOGLOBIN A1C (03/13/2017 7:28 AM STORM WINDOW INSTALLER) HEMOGLOBIN A1C 6.3(H) 4.0 - 6.0 % 03/13/2017 10:54 AM STORM WINDOW INSTALLER [facility] EST. AVG GLUCOSE, A1C 134 mg/dL 03/13/2017 10:54 AM STORM WINDOW INSTALLER [facility] Blood Venipuncture / Unknown 03/13/2017 7:28 AM STORM WINDOW INSTALLER 03/13/2017 9:18 AM STORM WINDOW INSTALLER us Zain Smith MD CHEMISTRY ORDERABLES Final R esult [facility] [employer] [facility] CLIA# [id number] [address] [place] [address] [address] from Last 3 Months or Most Recently Relevant to Health Maintenance Insurance MEDICARE PART A AND B [facility] [id number] [place] [address]
--- OUTSIDE RECORDS SUMMARY | 2024-12-16 13:57 | XMS_ITS | Encounter Summary ---
Author Organization [facility] Address [address] [place] [address] Care Team Providers Care Director Risk Name Role Phone Unavailable Primary Care Provider Unavailabl e Encounter Details Date Type Department Care Team (Late st Contact Info) Description 03/13/2017 Lab Requisition [facility] Services [address] [facility] [address] [place] [address] Zain Smith MD [address] [place], [place] [id number] Encounter for general adult medical examination without [...] Description 12/19/2024 2:00 PM CDT Office Visit [facility] Oncology and Hematology - [place] [address] [place] [address] Gurjit Ayala MD [address] [facility] [address] [place] [address] documented as of this encounter Procedures Procedure Name Priority Date/Time Associated Diagnosis Comments CBC WITH DIFFERENTIAL Routine 03/13/2017 7:28 AM MUSIC RESEARCHER Encounter for general adult medical examination without abnormal findings PTT Routine 03/13/2017 7:28 AM MUSIC RESEARCHER Encounter for general adult medical examination without abnormal findings PROTIME-INR Routine 03/13/2017 7:28 AM MUSIC RESEARCHER Encounter for general adult medical examination without abnormal findings HEMOGLOBIN A1C Routine 03/13/2017 7:28 AM MUSIC RESEARCHER Encounter for general adult medical examination without abnormal findings documented in this encounter Results * PTT (03/13/2017 7:28 AM MUSIC RESEARCHER) PTT 33.4 24.4 - 36.4 seconds 03/13/2017 10:58 AM MUSIC RESEARCHER [facility] [employer] [facility] Comment: PTT Therapeutic Range: Heparin Level PTT (seconds) <0.10 units/mL <53 0.10 - 0.30 units/mL 53 - 67 0.30 - 0.70 units/mL* 67 - 95* 0.70 - 1.00 units/mL 95 - 116 *corresponds to therapeutic range for unfractionated heparin Blood Venipuncture / Unknown 03/13/2017 7:28 AM MUSIC RESEARCHER 03/13/2017 9:18 AM MUSIC RESEARCHER Zain Smith MD HEMATOLOGY ORDERABLES Final Result [facility]# [id number] [address] [place] [address] * PROTIME-INR (03/13/2017 7:28 AM MUSIC RESEARCHER) PROTIME 13.4 12.7 - 15.1 Seconds 03/13/2017 10:58 AM MUSIC RESEARCHER [facility] [employer] [facility] INR 1.0 0.9 - 1.1 03/13/2017 10:58 AM [facility] [employer] [facility] Blood Venipuncture / Unknown 03/13/2017 7:28 AM MUSIC RESEARCHER 03/13/2017 9:18 AM MUSIC RESEARCHER Narrative [facility] [employer] [facility] - 03/13/2017 10:58 AM MUSIC RESEARCHER INR Therapeutic Range: Adult: 2.0 - 3.0 for pulmonary embolism or prophylaxis against venous thrombosis or systemic embolization. 2.0 - 3.0 for patients with tissue heart valves. 2.5 - 3.5 for patients with mechanical heart valves or post [place]. Pediatric (12 years and under): 1.5 - 3.0 Although the target range in children is not well established, INR values of 1.5 - 3.0 are recommended for most patients. Higher values have been used in children with prosthetic cardiac valves and hereditary clotting disorders. [place] (<3 days) therapeutic ranges have not been established. Zain Smith MD HEMATOLOGY ORDERABLES Final Result [employer] [facility]AT[facility] SERVICES - [facility] CLIA# [id number] [address] [place] [address] * (ABNORMAL) CBC WITH DIFFERENTIAL (03/13/2017 7:28 AM MUSIC RESEARCHER) WBC 5.0 4.0 - 9.8 K/uL 03/13/2017 10:15 AM [employer] [facility] - [facility] RBC 3.28(L) 4.50 - 5.40 M/uL 03/13/2017 10:15 AM [facility]AT[facility] SERVICES - . [facility] HEMOGLOBIN 9.7(L) 13.6 - 16.5 g/dL 03/13/2017 10:15 AM [facility] - . [facility] HEMATOCRIT 30.7(L) 40.0 - 48.0 % 03/13/2017 10:15 AM [facility] SERVICES - . [facility] MCV 93.6 82.0 - 99.0 fL 03/13/2017 10:15 AM [employer] [facility] SERVICES - . [facility] MCH 29.6 27.2 - 32.6 pg 03/13/2017 10:15 AM [facility]ORY SERVICES - . [facility] MCHC 31.6 31.5 - 35.5 g/dL 03/13/2017 10:15 AM [facility]ORY SERVICES - . [facility] RDW 14.2 11.5 - 14.5 % 03/13/2017 10:15 AM [facility]ATORY SERVICES - . [facility] RDW-STDEV 48.7 37.1 - 48.7 fL 03/13/2017 10:15 AM [facility] SERVICES - . [facility] PLATELETS 261 140 - 350 K/uL 03/13/2017 10:15 AM [employer] - [facility] MPV 10.0 9.3 - 12.4 fL 03/13/2017 10:15 AM [facility] [employer] [facility] - [facility] NEUTROPHILS 33 % 03/13/2017 10:15 AM [facility] [email or web address] [facility] LYMPHOCYTES 43 % 03/13/2017 10:15 AM [facility] [employer] [facility] MONOCYTES 15 % 03/13/2017 10:15 AM [facility] [employer] [facility] EOSINOPHILS 7 % 03/13/2017 10:15 AM [facility] [employer] [facility] BASOPHILS 0 % 03/13/2017 10:15 AM [facility] [employer] [facility] IMMATURE GRANULOCYTES 2 % 03/13/2017 10:15 AM [facility] [employer] [facility] Comment:IG (Immature Granulo cyte) count includes Metamyelocytes, Myelocytes, and Promyelocytes NEUTROPHIL ABSOLUTE 1.68(L) 1.90 - 7.00 K/uL 03/13/2017 10:15 AM [facility] [employer] [facility] LYMPHOCYTE ABSOLUTE 2.14 0.70 - 4.50 K/uL 03/13/2017 10:15 AM [facility] [employer] [facility] MONOCYTE ABSOLUTE 0.74 0.10 - 1.30 K/uL 03/13/2017 10:15 AM [facility] [employer] - [facility] EOSINOPHIL ABSOLUTE 0.35 0.00 - 0.70 K/uL 03/13/2017 10:15 AM [facility] [employer] - [facility] BASOPHILS ABSOLUTE 0.02 0.00 - 0.20 K/uL 03/13/2017 10:15 AM [facility] [employer] [facility] IMMATURE GRANULOCYTES ABSOLUTE 0.10(H) 0.00 - 0.03 K/uL 03/13/2017 10:15 AM [facility] [employer] [facility] Blood Venipuncture / Unknown 03/13/2017 7:28 AM [facility] 03/13/2017 9:18 AM MUSIC RESEARCHER us Zain Smith MD HEMATOLOGY ORDERABLES Final Result [email or web address] CLIA# [id number] [address] [place] [address] * (ABNORMAL) HEMOGLOBIN A1C (03/13/2017 7:28 AM MUSIC RESEARCHER) HEMOGLOBIN A1C 6.3(H) 4.0 - 6.0 % 03/13/2017 10:54 AM MUSIC RESEARCHER [facility] LABORATORY SERVICES [facility] EST. AVG GLUCOSE, A1C 134 mg/dL 03/13/2017 10:54 AM MUSIC RESEARCHER [facility]ORATORY [facility] Blood Venipuncture / Unknown 03/13/2017 7:28 AM MUSIC RESEARCHER 03/13/2017 9:18 AM MUSIC RESEARCHER us Zain Smith MD CHEMISTRY ORDERABLES Final R esult [facility]# [id number] [address] [place] [address] documented in this encounter Visit Diagnoses Diagnosis Encounter for general adult medical examination without abnormal findings Routine general medical examination at a health care facility documented in this encounter
--- OUTSIDE RECORDS SUMMARY | 2024-12-16 13:58 | XMS_ITS | Encounter Summary ---
Author Organization [facility] Healthcare Address [address] [place] [address] Care Team Providers Care Orthotic Fitter Name Role Phone Rosanne Emerson Primary Care Provider + Encounter Details Date Type Department Care Team (Late st Contact Info) Description 10/29/2024 Orders Only [facility] [place] Health Information Management [address] [place] [address] Scanning, Provider Social History Tobacco Use Types Packs/Day Years Used Date Smoking Tobacco: Former Smokeless Tobacco: Never Comments Unknown Sex and Gender Information Value Date Recorded Sex Assigned at Not on file Legal Sex Female 7:43 PM [employer] Gender Identity Not on file Sexual Orientation Not on file documented as of this encounter Plan of Treatment Not on file documented as of this encounter Procedures Procedure Name Priority Date/Time Associated Diagnosis Comments CARDIOLOGY DOCUMENT SCAN 10/29/2024 SCAN - RADIOLOGY/IMAGING 10/28/2024 documented in this encounter Results * Cardiology Document Scan (10/29/2024) Anatomical Region Laterality Modality Other us Provider Scanning CV CARDIAC SERVICES PROCEDURES Final Result * SCAN - RADIOLOGY/IMAGING (10/28/2024) Anatomical Region Laterality Modality Other us Provider Scanning Final Result documented in this encounter Visit Diagnoses Not on filedocumented in this encounter Care Teams Orthotic Fitter Relationship Specialty Start Date End Date Rosanne Emerson PA PCP - General Physician Meat Products Demonstrator 08/25/23 documented as of this encounter
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
--- OUTSIDE RECORDS SUMMARY | 2024-12-16 13:58 | XMS_ITS | Clinical Summary ---
Author Organization [facility] Address [address] [place] [address] Phone Care Team Providers Care Dog Trainer Name Role Phone TarikrosiobriandaBridget CORRECTIONAL COOK Primary Care Provider Allergies Active Allergy Reactions [...] on file Legal Sex Female 9:18 AM SPORTS MANAGEMENT INTERN Gender Identity Not on file Sexual Orientation Not on file Last Filed Vital Signs Vital Sign Reading Time Taken Comments Blood Pressure 150/68 03/09/2017 7:45 AM SPORTS MANAGEMENT INTERN Pulse 105 03/08/2017 10:53 PM SPORTS MANAGEMENT INTERN Temperature 37.3 C (99.2 F) 03/09/2017 7:45 AM SPORTS MANAGEMENT INTERN Respiratory Rate 18 03/09/2017 7:45 AM SPORTS MANAGEMENT INTERN Oxygen Saturation 95% 03/09/2017 7:45 AM SPORTS MANAGEMENT INTERN Inhaled Oxygen Concentration - - Weight 115.7 kg (255 lb) 03/06/2017 2:20 PM SPORTS MANAGEMENT INTERN Height 167.6 cm (5' 6) 03/06/2017 2:20 PM SPORTS MANAGEMENT INTERN Body Mass Index 41.16 03/06/2017 2:20 PM SPORTS MANAGEMENT INTERN Plan of Treatment Health Maintenance Due Date Last Done Comments Hepatitis C Virus (HCV) Screening 1950 TdaP Immunization 1950 Cologuard 1994 Colonoscopy 1994 Colorectal Cancer Screening 1994 Immunochemical Fecal Occult Blood 1994 Pneumococcal Immunization (5 0+ years) (1 of 1 - PCV) 07/16/1999 Zoster Immunization (1 of 2) 07/16/1999 Respiratory Syncytial Virus (RSV) Immunization (Adult) (1 - 1-dose 75+ series) 2024 Influenza Immunization (#1) 2024 SARS-COV-2 Immunization ( season) 2024 Hepatitis B Immunization Aged Out No [...] this topic Medical Devices Implanted Type Area Retanner Device Identifier Shelf Expiration Date Model / Serial / Lot Cmnt Bn Endrn Sst Gnta 40gm Hvisc - [id number] Implanted:Qty: 2 on 07/04/2016 by Rian Foss MD at [facility] IMPLANT Left: Knee JNJ / [employer] 01/31/2018 [id number] / / [id number] Cmnt Bn Cmw2 20gm Strl - [id number] Implanted:Qty: 1 on 07/04/2016 by Rian Foss MD at [facility] IMPLANT Left: Knee [employer] / [employer] 08/31/2017 [id number] / / [id number] Cmpnt Ptlr 38mm Medialized Dome Attune - [id number] Implanted:Qty: 1 on 07/04/2016 by Rian Foss MD at [facility] IMPLANT Left: Knee [employer] / [employer] 01/31/2021 [id number] / / [id number] Cmnt Bn Sst Gnta Hvisc 40gm - [id number] Implanted:Qty: 1 on 03/06/2017 by Rian Foss MD at [facility] IMPLANT Right: Knee [employer] / [employer] 12/31/2017 [id number] / [id number] / [id number] Cmnt Bn Sst Gnta Hvisc 40gm - [id number] Implanted:Qty: 1 on 03/06/2017 by Rian Foss MD at [facility] IMPLANT Right: Knee [employer] / [employer] 01/31/2018 [id number] / [id number] / [id number] Dome Ptlr 35mm Attune Kn Aox Cmnt - [id number] Implanted:Qty: 1 on 03/06/2017 by Rian Foss MD at [facility] IMPLANT Right: Knee [employer] / [employer] 12/01/2021 [id number] / [id number] / [id number] Attune Tibial Base Size 6 Cemented Implanted:Qty: 1 on 07/04/2016 by Rian Foss MD at [facility] Left: Knee [employer] 03/02/2026 [id number] / / [id number] Attune Tibial Insert Size 6, 8mm Implanted:Qty: 1 on 07/04/2016 by Rian Foss MD at [facility] Left: Knee [employer] 10/31/2017 [id number] / / [id number] Attune Femoral Size 6, Left Cemented Implanted:Qty: 1 on 07/04/2016 by Rian Foss MD at [facility] Left: Knee [employer] 03/02/2026 [id number] / / [id number] Attune Tibial Base Implanted:Qty: 1 on 03/06/2017 by Rian Foss MD at [facility] Right: Knee [employer] 07/01/2026 [id number] / [id number] / [id number] Attune Knee System Revision Cemented Stem Implanted:Qty: 1 on 03/06/2017 by Rian Foss MD at [facility] Right: Knee [employer] 12/31/2026 [id number] / [id number] / [id number] Attune Femoral Posterior Stabilized Implanted:Qty: 1 on 03/06/2017 by Rian Foss MD at [facility] Right: Knee [employer] 07/01/2026 150 / 150 / [id number] Attune Tibial Insert Implanted:Qty: 1 on 03/06/2017 by Rian Foss MD at [facility] Right: Knee [employer] 11/30/2021 [id number] / [id number] / [id number] Insurance [facility] MEDICARE Care Teams Dog Trainer Relationship Specialty Start Date End Date Bridget Trinidad APRN [address] [place] [address] PCP - General Advanced Practice Nurse 06/17/16
--- OUTSIDE RECORDS SUMMARY | 2024-12-16 13:58 | XMS_ITS | Clinical Summary ---
Author Organization [facility] Address [address] [place] [address] Care Team Providers Care Showroom Manager Name Role Phone Ashanti Dove NP Primary Care Provider [phone] Social History Tobacco Use Types Packs/Day Years [...] (2 - Td or Tdap) 02/06/2022 02/07/2012 RSV Immunization or 60+ Years (1 - 1-dose 75+ series) 2024 COVID-19 Vaccine ( season) 2024 01/12/2021, 07/03/2020, 06/21/2020, Additional history exists Pneumococcal Vaccine: 50+ Years Completed 05/10/2023, 12/09/2014 Meningococcal B Vaccine Aged Out No l onger eligible based on patient's age to complete this topic Meningococcal Vaccine Aged Out No nick ronnie eligible based on patient's age to complete this topic RSV Immunizations Under 20 Months Aged Out No longer eligible based on patient's age to complete this topic Insurance MEDICARE [facility] Care Teams Showroom Manager Relationship Specialty Start Date End Date Ashanti Dove NP [id number] [place] [address] PCP - General NURSE PRACTITIONER ADULT HEALTH 09/07/23
--- OUTSIDE RECORDS SUMMARY | 2024-12-16 13:58 | XMS_ITS | Clinical Summary ---
Author Organization [facility] Address [address] [place] [address] Care Team Providers Care Photoengraving Etcher Apprentice Name Role Phone Rosanne Emerson Primary Care Provider + Allergies Active Allergy Reactions Criticality Noted Date Comments Other Unknown Medium 02/22/2017 SEASONAL-MOLDS, GRASS, ETC Medications sertraline (ZOLOFT) 100 mg tablet take 1 tablet by oral route every day 0 0 7 Active Additional Information Patient taking differently: 50 mg oral Daily, Reported on 11/14/2024 metFORMIN (GLUCOPHAGE) 850 mg tablet Take 1 tablet (850 mg total) by mouth 2 (two) times a day with meals 8 Active glipiZIDE (GLUCOTROL) 10 mg tabletIndicatio ns:type 2 diabetes mellitus 8 Active atorvastatin (LIPITOR) 40 mg tablet Take 1 tablet (40 mg total) by mouth daily Active lisinopriL (PRINIVIL,ZESTR IL) 10 mg tablet [...] by physical therapist 1 each 4 Active Additional Information Patient not taking.Reported on 11/14/2024 amiodarone (PACERONE) 200 mg tablet Take 1 tablet (200 mg total) by mouth daily Active gabapentin (NEURONTIN) 300 mg capsule Take 1 capsule (300 mg total) by mouth 3 (three) times a day 5 Active Jardiance 25 mg tablet Take 1 tablet (25 mg total) by mouth daily 5 Active furosemide (LASIX) 40 mg tablet Take 1 tablet (40 mg total) by mouth daily 5 Active Xarelto 15 mg tablet Take 1 tablet (15 mg total) by mouth daily with dinner Active metoprolol tartrate (LOPRESSOR) 25 mg immediate release tablet Take 1 tablet (25 mg total) by mouth 2 (two) times a day Active Active Problems Problem Noted Date Diagnosed [...] Encounters Date Type Department Care Team Description 11/29/2024 Orders Only [facility] Cardiology [address] [place] [address] [place] [phone] Corazon Rolon NP 11/14/2024 11:00 AM CDT Office Visit [facility] Cardiology [address] [place] [address] [place] [phone] Ashanti Dove NP Paroxysmal atrial fibrillation (HCC) (Primary Dx); Chronic anticoagulation; Chronic heart failure with preserved ejection fraction; Stage 3 chronic kidney disease, unspecified whether stage 3a or 3b CKD (HCC); Hospital discharge follow-up 11/05/2024 Orders Only [facility] Cardiology [address] [place] [address] [place] [phone] Reynaldo Mcfarlane MD 10/31/2024 Orders Only [facility] Cardiology [address] [place] [address] [address] [place] [phone] Fiorella Hodge MD 10/29/2024 Orders Only [facility] [address] [place] [address] Scanning, Provider 10/07/2024 Results Follow-Up [facility] Cardiology at [address] [place] [address] Mitch Dunn MD [facility] Mobile Cardiac Telemetry Event Monitor 09/25/2024 Orders Only [facility] Cardiology [address] [facility] [address] [place] [address] Corazon Rolon NP 09/19/2024 2:30 PM CDT Ancillary Procedure [facility] Cardiology [address] [facility] [address] [place] [address] Atrial fibrillation, unspecified type (HCC) 09/19/2024 Telephone [facility] Cardiology [address] [facility] [address] [place] [phone] Mitch Dunn MD 09/16/2024 Telephone [facility] Cardiology [address] [facility] [address] [place] [address] Ashanti Dove NP from Last 3 Months Surgical History Surgery Date Site/Laterality Comments CARPAL TUNNEL RELEASE Carpal tunnel release KNEE ARTHROPLASTY Knee replacement BREAST FIBROADENOMA SURGERY Right Unsure of year. 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 Gender Identity Not on file Sexual Orientation Not on file Obstetrics History Last Filed Vital Signs Vital Sign Reading Time Taken Comments Blood Pressure 90/50 11/14/2024 11:16 AM CDT Pulse 68 11/14/2024 11:16 AM CDT Temperature - - Respiratory Rate - - Oxygen Saturation 96% 11/14/2024 11:16 AM CDT Inhaled Oxygen Concentration - - Weight 116.6 kg (257 lb) 11/14/2024 11:16 AM CDT Height 165.1 cm (5' 5) 11/14/2024 11:16 AM CDT Body Mass Index 42.77 11/14/2024 11:16 AM CDT Plan of Treatment Health Maintenance Due Date Last Done Comments Albumin Creatinine Ratio, Urine 1950 Colon Cancer Screening-Colonoscopy 1949 Depression Screening 1949 Fall Risk Assessment 1950 Hepatitis C Screening 1949 Osteoporosis Screening-Bone Density Scan 1949 eGFR 1950 Dilated Eye Exam 1949 Foot Exam 1950 Hepatitis B Screening 07/16/1967 Zoster Vaccine (1 of 2) 07/16/1999 Well Visit 65+ 2014 Pneumococcal vaccine 65+ (2 of 2 - PCV) 12/10/2015 12/09/2014 Covid-19 Vaccine (5 - 2024-2 6 season) 2024 01/12/2021, 07/03/2020, 06/21/2020, Additional history exists Influenza Vaccine (#1) 2024 Hemoglobin A1C 03/28/2025 09/26/2024 Lipid Panel 10/02/2025 10/02/2024, 07/28/2023 DTaP/Tdap/Td Vaccine (3 - Td or Tdap) 09/26/2034 09/26/2024, 02/07/2012 Breast Cancer Screening-Mammogram Discontinued 08/21/2024, 03/09/2023, 03/09/2023, Additional history exists Procedures Procedure Name Priority Date/Time Associated Diagnosis Comments CARDIOLOGY DOCUMENT SCAN Routine 11/02/2024 7:04 AM CDT SCAN - LABS 11/01/2024 CARDIOLOGY DOCUMENT SCAN Routine 10/30/2024 4:44 PM CDT CARDIOLOGY DOCUMENT SCAN Routine 10/29/2024 12:24 PM CDT CARDIOLOGY DOCUMENT SCAN 10/29/2024 SCAN - RADIOLOGY/IMAGING 10/28/2024 CARDIOLOGY DOCUMENT SCAN Routine 09/19/2024 2:42 PM [...] Health Maintenance Results * Cardiology Document Scan (11/02/2024 7:04 AM CDT) Anatomical Region Laterality Modality Other us Reynaldo Mcfarlane MD [facility] CARDIAC SERVICES PROCEDU RES Final Result * SCAN - LABS (11/01/2024) us Provider Scanning Final Result * Cardiology Document Scan (10/30/2024 4:44 PM CDT) Anatomical Region Laterality Modality Other us Fiorella Hodge MD [facility] CARDIAC SERVICES PROCEDU RES Final Result * Cardiology Document Scan (10/29/2024 12:24 PM CDT) Anatomical Region Laterality Modality Other us Corazon Rolon NP CV CARDIAC SERVICES PROCEDUR ES Final Result * Cardiology Document Scan (10/29/2024) Anatomical Region Laterality Modality Other us Provider Scanning [facility] CARDIAC SERVICES PROCEDURES Final Result * SCAN - RADIOLOGY/IMAGING (10/28/2024) Anatomical Region Laterality Modality Other us Provider Scanning Final Result * Cardiology Document Scan (09/19/2024 2:42 PM CDT) Anatomical Region Laterality Modality Other Fiorella Hodge MD CV CARDIAC SERVICES PROCEDU RES Final Result * [facility] Mobile Cardiac Telemetry Event Monitor (09/19/2024 2:41 PM CDT) Anatomical Region Laterality Modality Electrocardiogra phy Narrative 10/02/2024 1:01 PM CDT AMBULATORY RN RECOVERY REPORT Patient Name: Jocelyn Norman Date of [...] was used to complete this document, therefore, security screener variances may occur. Chava Meraz MD, [facility] 10/02/24 Procedure Note Chava Meraz MD - 10/02/2024 AMBULATORY RN RECOVERY REPORT Patient Name: Jocelyn Norman Date of : 1950 Requesting Physician: Dr. Dunn Date of interpretation: 10/02/24 Type of monitor : One-week event monitor Date of the study/Enrollment period: 09/19/2024-09/25/2024 Indication: Unspecified atrial fibrillation Quality of the study: Adequate Interpretation: Predominant underlying rhythm is sinus rhythm, heart [id number] beats per minute, average heart rate 65 [...] software was used to complete this document, therefore,security screener variances may occur. Chava Meraz MD, [facility] 10/02/24 us Mitch Dunn MD CV [...] Recently Relevant to Health Maintenance Insurance [facility]ICARE [facility]IC[facility] Care Teams Photoengraving Etcher Apprentice Relationship Specialty Start Date End Date Rosanne Emerson PA PCP - General Physician Build Automation Engineer 08/25/23
== END 2024-12-16 11:45 | disposition home or self-care (01) ==
PROVIDERS: PCP Physician Assistant; Visit Provider Internal Medicine Hematology & Oncology
DX: D64.9 Anemia, unspecified (principal)
CPT/HCPCS: 36415; 82607; 82728; 82746; 83540; 83550; 85025

== ENCOUNTER 2025-03-10 16:59 | Outpatient (CLI) | payer MEDICARE, SELFPAY ==
[2025-03-10 18:28] LABS: Hematocrit 41.1 % (37.0-47.0); Hemoglobin 13.3 g/dL (12.0-15.0); Mean Corpuscular HGB Conc 32.4 g/dl (32-36); Mean Corpuscular Hemoglobin 29.3 pg (26-34); Mean Corpuscular Volume 90.5 fl (80-100); Platelet Count Result 227 k/mm3 (150-375); Red Blood Count 4.54 M/mm3 (4.2-5.4); White Blood Count 7.2 K/mm3 (4.5-10.0)
[2025-03-10 18:35] LABS: Total Protein Urine Random 13 mg/dL; Ur Ttl Prot Creatinine Ratio 0.18 mg/mg (0-0.20)
[2025-03-10 19:04] LABS: Parathyroid Intact 95.5 pg/mL (14.5-75.2)
[2025-03-10 19:07] LABS: Albumin Level 4.0 g/dL (3.5-5.1); Anion Gap 7 mmol/L (4-12); Blood Urea Nitrogen 25 mg/dL (7-17); Calcium 9.1 mg/dL (8.4-10.2); Carbon Dioxide 28 mmol/L (22-30); Chloride 104 mmol/L (98-107); Estimated Glomerular Filt Rate 31; Glucose 91 mg/dL (65-110); Potassium 3.6 mmol/L (3.4-5.0); Sodium 139 mmol/L (137-145)
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
== END 2025-03-10 17:00 | disposition home or self-care (01) ==
PROVIDERS: PCP Nurse Practitioner; Visit Provider Internal Medicine Nephrology
DX: I12.9 Hypertensive chronic kidney disease with stage 1 through stage 4 chronic kidney disease, or unspecified chronic kidney disease (principal); N18.32 Chronic kidney disease, stage 3b
CPT/HCPCS: 36415; 80069; 82570; 83970; 84156; 85027